=== PATIENT | male | born 1945 | race Caucasian/White ===

== ENCOUNTER 2016-06-13 | Inpatient (IN) | END 2017-06-12 23:59 | disposition still patient (30) | DRG 189 | DX: J96.21 Acute and chronic respiratory failure with hypoxia (principal); Z93.0 Tracheostomy status; I69.398 Other sequelae of cerebral infarction; I67.2 Cerebral atherosclerosis; I25.10 Atherosclerotic heart disease of native coronary artery without angina pectoris; Z93.1 Gastrostomy status ==

== ENCOUNTER 2017-06-13 | Inpatient (IN) | END 2018-06-12 11:59 | disposition other institution (70) | DRG 189 | DX: J96.21 Acute and chronic respiratory failure with hypoxia (principal); E46 Unspecified protein-calorie malnutrition; G93.40 Encephalopathy, unspecified; J98.11 Atelectasis; I10 Essential (primary) hypertension; Z93.0 Tracheostomy status; I69.298 Other sequelae of other nontraumatic intracranial hemorrhage; I67.2 Cerebral atherosclerosis; I25.10 Atherosclerotic heart disease of native coronary artery without angina pectoris; Z93.1 Gastrostomy status; D64.9 Anemia, unspecified; E27.9 Disorder of adrenal gland, unspecified; G25.2 Other specified forms of tremor; H04.123 Dry eye syndrome of bilateral lacrimal glands; I25.2 Old myocardial infarction; L89.159 Pressure ulcer of sacral region, unspecified stage; R13.10 Dysphagia, unspecified; G93.89 Other specified disorders of brain; I95.9 Hypotension, unspecified; R00.1 Bradycardia, unspecified; K30 Functional dyspepsia ==

== ENCOUNTER 2018-05-12 08:54 | Outpatient (CLI) | payer BC | END 2018-05-12 23:59 | disposition home or self-care (01) | LOC: RAD 08:54 | PROVIDERS: ATTEND Psychiatry & Neurology Neurology | DX: G31.9 Degenerative disease of nervous system, unspecified (principal); I67.82 Cerebral ischemia; I67.2 Cerebral atherosclerosis | CPT/HCPCS: 70450 ==

== ENCOUNTER 2018-06-13 | Inpatient (IN) | END 2019-06-12 23:59 | disposition still patient (30) | DRG 189 | DX: J96.21 Acute and chronic respiratory failure with hypoxia (principal); E46 Unspecified protein-calorie malnutrition; G93.40 Encephalopathy, unspecified; J98.11 Atelectasis; Z43.1 Encounter for attention to gastrostomy; N39.0 Urinary tract infection, site not specified; Z68.1 Body mass index [BMI] 19.9 or less, adult; I10 Essential (primary) hypertension; Z93.0 Tracheostomy status; I67.2 Cerebral atherosclerosis; I25.10 Atherosclerotic heart disease of native coronary artery without angina pectoris; E27.9 Disorder of adrenal gland, unspecified; I25.2 Old myocardial infarction; L89.159 Pressure ulcer of sacral region, unspecified stage; R13.10 Dysphagia, unspecified; G93.89 Other specified disorders of brain; D64.9 Anemia, unspecified; K57.90 Diverticulosis of intestine, part unspecified, without perforation or abscess without bleeding; K64.8 Other hemorrhoids; Z86.19 Personal history of other infectious and parasitic diseases; Z86.73 Personal history of transient ischemic attack (TIA), and cerebral infarction without residual deficits; B95.2 Enterococcus as the cause of diseases classified elsewhere; Z91.81 History of falling; E27.8 Other specified disorders of adrenal gland ==

== ENCOUNTER 2019-01-17 08:52 | Outpatient (CLI) | payer BC | END 2019-01-17 23:59 | LOC: RAD 08:52 | PROVIDERS: ATTEND Internal Medicine Pulmonary Disease | DX: J98.11 Atelectasis (principal); J98.19 Other pulmonary collapse; J18.9 Pneumonia, unspecified organism; D35.02 Benign neoplasm of left adrenal gland; I70.0 Atherosclerosis of aorta; I25.10 Atherosclerotic heart disease of native coronary artery without angina pectoris; M47.814 Spondylosis without myelopathy or radiculopathy, thoracic region; M19.011 Primary osteoarthritis, right shoulder; M19.012 Primary osteoarthritis, left shoulder; Z93.0 Tracheostomy status | CPT/HCPCS: 71250 ==

== ENCOUNTER 2019-07-05 06:50 | Outpatient (CLI) | payer BC | END 2019-07-05 23:59 | disposition still patient (30) | LOC: CT 06:50 | PROVIDERS: ATTEND Internal Medicine Pulmonary Disease | DX: D35.02 Benign neoplasm of left adrenal gland (principal); K44.9 Diaphragmatic hernia without obstruction or gangrene; K57.10 Diverticulosis of small intestine without perforation or abscess without bleeding; J98.11 Atelectasis; I70.0 Atherosclerosis of aorta; M95.8 Other specified acquired deformities of musculoskeletal system; E27.8 Other specified disorders of adrenal gland | CPT/HCPCS: 74150 ==

== ENCOUNTER 2019-07-14 08:00 | Outpatient (CLI) | payer BC ==
[2019-07-14] MEDS ORDERED: IOHEXOL 350 100 ML INFUS..BTL ONE (12:45)
[2019-07-14] MEDS ORDERED: SWABABLE VALVE TRANSFER SET EA MC ONE (12:45)
[2019-07-14] MEDS ORDERED: IV NORMAL SALINE 250 ML IV ONE (12:46)
== END 2019-07-14 23:59 | disposition still patient (30) ==
LOC: CT 08:00
PROVIDERS: ATTEND Internal Medicine Pulmonary Disease
DX: D35.02 Benign neoplasm of left adrenal gland (principal); K57.30 Diverticulosis of large intestine without perforation or abscess without bleeding; N28.1 Cyst of kidney, acquired; I25.10 Atherosclerotic heart disease of native coronary artery without angina pectoris; J98.11 Atelectasis; I70.0 Atherosclerosis of aorta; M46.00 Spinal enthesopathy, site unspecified; Z93.1 Gastrostomy status
CPT/HCPCS: 74160; Q9967; J7050

== ENCOUNTER 2020-01-22 09:05 | Outpatient (CLI) | payer BC | END 2020-01-22 23:59 | LOC: CT 09:05 | PROVIDERS: ATTEND Psychiatry & Neurology Neurology | DX: G31.9 Degenerative disease of nervous system, unspecified (principal); G93.89 Other specified disorders of brain; R41.82 Altered mental status, unspecified; I67.82 Cerebral ischemia; G93.6 Cerebral edema | CPT/HCPCS: 70450 ==

== ENCOUNTER → 2020-06-12 23:59 | Inpatient (IN) | payer SELFPAY ==
[2019-06-14 08:30] VITALS: BP 103/51
[2019-06-14] MEDS: CIPROFLOXACIN 0.3% OPHT DROP 2.5 ML BOTTLE EACHEYE SCH ×2 (14:56→20:00)
--- NOTE | 2019-06-14 16:42 | NUR ---
SW sent patient's son Reji and daughter Marina an email asking them to schedule a time to meet with this SW in order to sign patient's annual admission paperwork. SW will wait to hear back from them, and if not then SW will follow up with them again.
[2019-06-14] MEDS: PANTOPRAZOLE ORAL SUSPENSION 40 MG SUSPDR.PKT GT SCH (17:07)
[2019-06-14] MEDS: ALBUTEROL SULFATE 2.5 MG/3 ML NEBU NEB SCH (19:16)
[2019-06-14 20:33] VITALS: BP 126/61
[2019-06-14] MEDS: METOPROLOL TARTRATE 50 MG TABLET GT SCH (20:46)
[2019-06-14] MEDS: LOSARTAN POTASSIUM 50 MG TABLET GT SCH (20:46)
[2019-06-14] MEDS: ACIDOPHILUS/BULGARICUS CHEW TAB GT SCH (20:46)
[2019-06-14] MEDS: MULTIVIT, IRON, MIN NO. 8, FA TABLET GT SCH (20:47)
[2019-06-14] MEDS: HEPARIN SODIUM,PORCINE 5,000 UNITS/ML VIAL SQ SCH (20:48)
[2019-06-14] MEDS: COD LIVER OIL/ZINC OXIDE OINT 113 GM TUBE TP SCH (20:48)
[2019-06-14] MEDS: NEOMY/BACITRA/POLYMYXIN B OINT UD PACKET TP SCH (20:48)
[2019-06-14] MEDS: HYDROGEN PEROXIDE 3% 118 ML BOTTLE TP SCH (21:05)
[2019-06-15] MEDS: ALBUTEROL SULFATE 2.5 MG/3 ML NEBU NEB SCH ×4 (01:07→20:03)
[2019-06-15] MEDS: VITAL AF 1.2 1,000 ML LIQUID GT PRN (03:00)
[2019-06-15] MEDS: PANTOPRAZOLE ORAL SUSPENSION 40 MG SUSPDR.PKT GT SCH ×2 (06:44→17:07)
[2019-06-15 08:03] VITALS: BP 108/52
[2019-06-15] MEDS: CIPROFLOXACIN 0.3% OPHT DROP 2.5 ML BOTTLE EACHEYE SCH ×4 (08:05→20:00)
[2019-06-15] MEDS: METOPROLOL TARTRATE 50 MG TABLET GT SCH ×2 (09:00→20:21)
[2019-06-15] MEDS: LOSARTAN POTASSIUM 50 MG TABLET GT SCH ×2 (09:00→20:20)
[2019-06-15] MEDS: ASPIRIN 81 MG TAB.CHEW GT SCH (09:06)
[2019-06-15] MEDS: ACIDOPHILUS/BULGARICUS CHEW TAB GT SCH ×2 (09:07→20:20)
[2019-06-15] MEDS: ATORVASTATIN 20 MG TABLET GT SCH (09:07)
[2019-06-15] MEDS: NUTRISOURCE FIBER 4 GM PACKET GT SCH (09:08)
[2019-06-15] MEDS: COD LIVER OIL/ZINC OXIDE OINT 113 GM TUBE TP SCH ×2 (09:11→20:25)
[2019-06-15] MEDS: NEOMY/BACITRA/POLYMYXIN B OINT UD PACKET TP SCH ×2 (09:11→20:25)
[2019-06-15] MEDS: HEPARIN SODIUM,PORCINE 5,000 UNITS/ML VIAL SQ SCH ×2 (09:11→20:31)
[2019-06-15] MEDS: HYDROGEN PEROXIDE 3% 118 ML BOTTLE TP SCH ×2 (09:55→20:18)
[2019-06-15 20:44] VITALS: BP 124/53
[2019-06-16] MEDS: ALBUTEROL SULFATE 2.5 MG/3 ML NEBU NEB SCH ×4 (01:48→19:41)
[2019-06-16] MEDS: VITAL AF 1.2 1,000 ML LIQUID GT PRN (04:35)
[2019-06-16] MEDS: PANTOPRAZOLE ORAL SUSPENSION 40 MG SUSPDR.PKT GT SCH ×2 (06:16→17:36)
[2019-06-16] MEDS: CIPROFLOXACIN 0.3% OPHT DROP 2.5 ML BOTTLE EACHEYE SCH ×4 (08:00→20:00)
[2019-06-16 08:30] VITALS: BP 104/43
[2019-06-16] MEDS: ASPIRIN 81 MG TAB.CHEW GT SCH (08:53)
[2019-06-16] MEDS: ACIDOPHILUS/BULGARICUS CHEW TAB GT SCH ×2 (08:54→20:43)
[2019-06-16] MEDS: LOSARTAN POTASSIUM 50 MG TABLET GT SCH ×2 (08:54→20:42)
[2019-06-16] MEDS: ATORVASTATIN 20 MG TABLET GT SCH (08:54)
[2019-06-16] MEDS: METOPROLOL TARTRATE 50 MG TABLET GT SCH ×2 (08:55→20:44)
[2019-06-16] MEDS: NUTRISOURCE FIBER 4 GM PACKET GT SCH (08:55)
[2019-06-16] MEDS: COD LIVER OIL/ZINC OXIDE OINT 113 GM TUBE TP SCH ×2 (08:56→20:44)
[2019-06-16] MEDS: NEOMY/BACITRA/POLYMYXIN B OINT UD PACKET TP SCH ×2 (08:56→20:44)
[2019-06-16] MEDS: HEPARIN SODIUM,PORCINE 5,000 UNITS/ML VIAL SQ SCH ×2 (08:56→20:44)
[2019-06-16] MEDS: HYDROGEN PEROXIDE 3% 118 ML BOTTLE TP SCH ×2 (09:00→21:12)
[2019-06-16] MEDS: MULTIVIT, IRON, MIN NO. 8, FA TABLET GT SCH (20:44)
[2019-06-16 20:49] VITALS: BP 115/64
[2019-06-17] MEDS: ALBUTEROL SULFATE 2.5 MG/3 ML NEBU NEB SCH ×4 (01:05→20:03)
[2019-06-17] MEDS: VITAL AF 1.2 1,000 ML LIQUID GT PRN (03:15)
[2019-06-17] MEDS: PANTOPRAZOLE ORAL SUSPENSION 40 MG SUSPDR.PKT GT SCH ×2 (06:08→17:38)
[2019-06-17] MEDS: CIPROFLOXACIN 0.3% OPHT DROP 2.5 ML BOTTLE EACHEYE SCH ×4 (08:00→18:15)
[2019-06-17 08:30] VITALS: BP 116/50
[2019-06-17] MEDS: LOSARTAN POTASSIUM 50 MG TABLET GT SCH ×2 (09:00→21:15)
[2019-06-17] MEDS: HYDROGEN PEROXIDE 3% 118 ML BOTTLE TP SCH ×2 (09:00→20:03)
[2019-06-17] MEDS: METOPROLOL TARTRATE 50 MG TABLET GT SCH ×2 (09:00→21:16)
[2019-06-17] MEDS: ASPIRIN 81 MG TAB.CHEW GT SCH (09:30)
[2019-06-17] MEDS: ACIDOPHILUS/BULGARICUS CHEW TAB GT SCH ×2 (09:32→21:15)
[2019-06-17] MEDS: ATORVASTATIN 20 MG TABLET GT SCH (09:34)
[2019-06-17] MEDS: NUTRISOURCE FIBER 4 GM PACKET GT SCH (09:35)
[2019-06-17] MEDS: NEOMY/BACITRA/POLYMYXIN B OINT UD PACKET TP SCH ×2 (09:37→21:18)
[2019-06-17] MEDS: COD LIVER OIL/ZINC OXIDE OINT 113 GM TUBE TP SCH ×2 (09:37→21:18)
[2019-06-17] MEDS: HEPARIN SODIUM,PORCINE 5,000 UNITS/ML VIAL SQ SCH ×2 (09:37→21:20)
[2019-06-17 21:13] VITALS: BP 125/60
--- NOTE | 2019-06-17 21:54 | NUR ---
S/p Cipro eye drops for both eye infection, no adverse reactions noted, no discharges or drainage noted, good eye care done, no signs of pain discomfort, kept clean and comfortable.
[2019-06-18] MEDS: ALBUTEROL SULFATE 2.5 MG/3 ML NEBU NEB SCH ×4 (01:52→19:51)
[2019-06-18] MEDS: PANTOPRAZOLE ORAL SUSPENSION 40 MG SUSPDR.PKT GT SCH ×2 (05:20→17:39)
[2019-06-18 08:30] VITALS: BP_SYST 101; BP_SYST 112; BP_DIAS 56; BP_DIAS 70
[2019-06-18] MEDS: ASPIRIN 81 MG TAB.CHEW GT SCH (08:40)
[2019-06-18] MEDS: ATORVASTATIN 20 MG TABLET GT SCH (08:42)
[2019-06-18] MEDS: LOSARTAN POTASSIUM 50 MG TABLET GT SCH ×2 (08:42→21:14)
[2019-06-18] MEDS: ACIDOPHILUS/BULGARICUS CHEW TAB GT SCH ×2 (08:42→21:14)
[2019-06-18] MEDS: NUTRISOURCE FIBER 4 GM PACKET GT SCH (08:45)
[2019-06-18] MEDS: METOPROLOL TARTRATE 50 MG TABLET GT SCH ×2 (08:45→21:14)
[2019-06-18] MEDS: HEPARIN SODIUM,PORCINE 5,000 UNITS/ML VIAL SQ SCH ×2 (08:47→21:11)
[2019-06-18] MEDS: COD LIVER OIL/ZINC OXIDE OINT 113 GM TUBE TP SCH ×2 (08:47→21:14)
[2019-06-18] MEDS: HYDROGEN PEROXIDE 3% 118 ML BOTTLE TP SCH ×2 (08:52→21:50)
[2019-06-18] MEDS: NEOMY/BACITRA/POLYMYXIN B OINT UD PACKET TP SCH ×2 (09:00→21:15)
[2019-06-18] MEDS: MULTIVIT, IRON, MIN NO. 8, FA TABLET GT SCH (21:14)
[2019-06-18 21:56] VITALS: BP 143/62
[2019-06-19] MEDS: ALBUTEROL SULFATE 2.5 MG/3 ML NEBU NEB SCH ×4 (01:20→18:30)
[2019-06-19] MEDS: PANTOPRAZOLE ORAL SUSPENSION 40 MG SUSPDR.PKT GT SCH ×2 (05:51→17:21)
[2019-06-19] MEDS: VITAL AF 1.2 1,000 ML LIQUID GT PRN ×2 (06:46→22:30)
[2019-06-19 08:00] VITALS: BP 106/46
[2019-06-19] MEDS: ATORVASTATIN 20 MG TABLET GT SCH (08:46)
[2019-06-19] MEDS: ASPIRIN 81 MG TAB.CHEW GT SCH (08:46)
[2019-06-19] MEDS: LOSARTAN POTASSIUM 50 MG TABLET GT SCH ×2 (08:46→21:00)
[2019-06-19] MEDS: ACIDOPHILUS/BULGARICUS CHEW TAB GT SCH ×2 (08:46→21:25)
[2019-06-19] MEDS: METOPROLOL TARTRATE 50 MG TABLET GT SCH ×2 (08:47→21:00)
[2019-06-19] MEDS: COD LIVER OIL/ZINC OXIDE OINT 113 GM TUBE TP SCH ×2 (08:47→21:26)
[2019-06-19] MEDS: NEOMY/BACITRA/POLYMYXIN B OINT UD PACKET TP SCH ×2 (08:47→21:26)
[2019-06-19] MEDS: NUTRISOURCE FIBER 4 GM PACKET GT SCH (08:47)
[2019-06-19] MEDS: HEPARIN SODIUM,PORCINE 5,000 UNITS/ML VIAL SQ SCH ×2 (08:48→21:27)
[2019-06-19] MEDS: HYDROGEN PEROXIDE 3% 118 ML BOTTLE TP SCH ×2 (09:35→20:28)
[2019-06-19 21:11] VITALS: BP 118/51
[2019-06-20] MEDS: ALBUTEROL SULFATE 2.5 MG/3 ML NEBU NEB SCH ×4 (02:08→20:00)
[2019-06-20] MEDS: VITAL AF 1.2 1,000 ML LIQUID GT PRN ×2 (02:15→17:05)
[2019-06-20] MEDS: PANTOPRAZOLE ORAL SUSPENSION 40 MG SUSPDR.PKT GT SCH ×2 (05:49→17:05)
[2019-06-20] MEDS: ACIDOPHILUS/BULGARICUS CHEW TAB GT SCH ×2 (08:10→21:45)
[2019-06-20] MEDS: ASPIRIN 81 MG TAB.CHEW GT SCH (08:10)
[2019-06-20] MEDS: LOSARTAN POTASSIUM 50 MG TABLET GT SCH ×2 (08:10→21:00)
[2019-06-20] MEDS: ATORVASTATIN 20 MG TABLET GT SCH (08:10)
[2019-06-20] MEDS: COD LIVER OIL/ZINC OXIDE OINT 113 GM TUBE TP SCH ×2 (08:11→21:49)
[2019-06-20] MEDS: NUTRISOURCE FIBER 4 GM PACKET GT SCH (08:11)
[2019-06-20] MEDS: METOPROLOL TARTRATE 50 MG TABLET GT SCH ×2 (08:11→21:00)
[2019-06-20] MEDS: NEOMY/BACITRA/POLYMYXIN B OINT UD PACKET TP SCH ×2 (08:11→21:50)
[2019-06-20] MEDS: HEPARIN SODIUM,PORCINE 5,000 UNITS/ML VIAL SQ SCH ×2 (08:14→21:00)
[2019-06-20] MEDS: HYDROGEN PEROXIDE 3% 118 ML BOTTLE TP SCH ×2 (09:00→20:52)
--- NOTE | 2019-06-20 10:52 | NUR ---
SW sent patient's son Reji and daughter Marina a follow-up email (first email sent on 06/14--see SS note dated 06/14), asking to schedule a time to meet in order to review patient's annual admission paperwork and obtain family's signatures on the forms.
[2019-06-20 12:08] VITALS: BP 110/64
--- NOTE | 2019-06-20 17:11 | NUR ---
SW received an email response back from patient's daughter Marina, who stated that she is currently out of town, however will be back next week and can meet with this SW to review and sign patient's annual admission paperwork. Marina stated that she will confirm exact date and time with this SW. GUTIERREZ responded to Marina's email confirming receipt and being in agreement to meet next week.
[2019-06-20 20:33] VITALS: BP 113/67
[2019-06-20] MEDS: MULTIVIT, IRON, MIN NO. 8, FA TABLET GT SCH (21:45)
[2019-06-21] MEDS: ALBUTEROL SULFATE 2.5 MG/3 ML NEBU NEB SCH ×4 (01:57→20:04)
[2019-06-21] MEDS: PANTOPRAZOLE ORAL SUSPENSION 40 MG SUSPDR.PKT GT SCH ×2 (05:35→17:14)
[2019-06-21 08:00] VITALS: BP 110/60
[2019-06-21] MEDS: HYDROGEN PEROXIDE 3% 118 ML BOTTLE TP SCH ×2 (08:15→20:23)
[2019-06-21] MEDS: ASPIRIN 81 MG TAB.CHEW GT SCH (08:33)
[2019-06-21] MEDS: LOSARTAN POTASSIUM 50 MG TABLET GT SCH ×2 (08:33→20:06)
[2019-06-21] MEDS: ATORVASTATIN 20 MG TABLET GT SCH (08:34)
[2019-06-21] MEDS: NUTRISOURCE FIBER 4 GM PACKET GT SCH (08:34)
[2019-06-21] MEDS: ACIDOPHILUS/BULGARICUS CHEW TAB GT SCH ×2 (08:34→20:06)
[2019-06-21] MEDS: METOPROLOL TARTRATE 50 MG TABLET GT SCH ×2 (08:34→20:06)
[2019-06-21] MEDS: HEPARIN SODIUM,PORCINE 5,000 UNITS/ML VIAL SQ SCH ×2 (08:34→20:07)
[2019-06-21] MEDS: COD LIVER OIL/ZINC OXIDE OINT 113 GM TUBE TP SCH ×2 (08:35→20:07)
[2019-06-21] MEDS: NEOMY/BACITRA/POLYMYXIN B OINT UD PACKET TP SCH ×2 (08:35→20:08)
[2019-06-21 20:27] VITALS: BP 106/51
[2019-06-22] MEDS: ALBUTEROL SULFATE 2.5 MG/3 ML NEBU NEB SCH ×4 (01:55→20:25)
[2019-06-22] MEDS: PANTOPRAZOLE ORAL SUSPENSION 40 MG SUSPDR.PKT GT SCH ×2 (05:37→17:44)
[2019-06-22] MEDS: ASPIRIN 81 MG TAB.CHEW GT SCH (08:44)
[2019-06-22] MEDS: ACIDOPHILUS/BULGARICUS CHEW TAB GT SCH ×2 (08:45→20:25)
[2019-06-22] MEDS: LOSARTAN POTASSIUM 50 MG TABLET GT SCH ×2 (08:45→20:24)
[2019-06-22] MEDS: METOPROLOL TARTRATE 50 MG TABLET GT SCH ×2 (08:45→20:25)
[2019-06-22] MEDS: ATORVASTATIN 20 MG TABLET GT SCH (08:45)
[2019-06-22] MEDS: COD LIVER OIL/ZINC OXIDE OINT 113 GM TUBE TP SCH ×2 (08:46→20:25)
[2019-06-22] MEDS: HEPARIN SODIUM,PORCINE 5,000 UNITS/ML VIAL SQ SCH ×2 (08:46→20:26)
[2019-06-22] MEDS: NEOMY/BACITRA/POLYMYXIN B OINT UD PACKET TP SCH ×2 (08:46→20:26)
[2019-06-22] MEDS: NUTRISOURCE FIBER 4 GM PACKET GT SCH (08:46)
[2019-06-22] MEDS: HYDROGEN PEROXIDE 3% 118 ML BOTTLE TP SCH ×2 (09:40→20:25)
--- NOTE | 2019-06-22 10:00 | NUR ---
PT. WAS SEEN AND EXAMINED BY DR. RIOS AND WITH NEW ORDERS CARRIED OUT.
[2019-06-22 10:05] VITALS: BP 122/48
[2019-06-22] MEDS: MULTIVIT, IRON, MIN NO. 8, FA TABLET GT SCH (20:25)
[2019-06-22 20:33] VITALS: BP 98/48
[2019-06-23] MEDS: ALBUTEROL SULFATE 2.5 MG/3 ML NEBU NEB SCH ×4 (00:44→19:40)
[2019-06-23] MEDS: VITAL AF 1.2 1,000 ML LIQUID GT PRN (04:07)
[2019-06-23] MEDS: PANTOPRAZOLE ORAL SUSPENSION 40 MG SUSPDR.PKT GT SCH ×2 (06:10→18:10)
[2019-06-23 06:36] LABS: BASOPHILS # (AUTO) 0.1 K/uL (0.0-8.0); EOSINOPHILS # (AUTO) 0.4 K/uL (0.0-0.7); EOSINOPHILS % (AUTO) 7.8 % (0.0-7.0); HEMOGLOBIN 13.2 g/dL (12.5-16.3); LYMPHOCYTES % (AUTO) 34.1 % (20.5-51.5); MEAN CORPUSCULAR HEMOGLOBIN 32.4 uug (23.8-33.4); MEAN CORPUSCULAR HGB CONC 34 g/dL (32.5-36.3); MEAN CORPUSCULAR VOLUME 95.6 fL (73.0-96.2); MONOCYTES # (AUTO) 0.5 K/uL (2.0-10.0); NEUTROPHILS # (AUTO) 2.8 K/uL (1.8-8.9); NEUTROPHILS % (AUTO) 48.1 % (38.5-71.5); PLATELET COUNT (AUTO) 242 K/uL (152-348); RED BLOOD CELL COUNT(AUTO) 4.08 MIL/uL (4.06-5.63); WHITE BLOOD COUNT (AUTO) 5.7 K/uL (3.6-10.2)
[2019-06-23 07:03] LABS: CREATININE 0.6 mg/dL (0.6-1.3); PHOSPHOROUS 3.4 mg/dL (2.5-4.9); POTASSIUM 4.5 mmol/L (3.5-5.1)
[2019-06-23] MEDS: HYDROGEN PEROXIDE 3% 118 ML BOTTLE TP SCH ×2 (08:19→21:10)
[2019-06-23] MEDS: ASPIRIN 81 MG TAB.CHEW GT SCH (08:28)
[2019-06-23] MEDS: LOSARTAN POTASSIUM 50 MG TABLET GT SCH ×2 (08:28→20:29)
[2019-06-23] MEDS: ACIDOPHILUS/BULGARICUS CHEW TAB GT SCH ×2 (08:29→20:30)
[2019-06-23] MEDS: ATORVASTATIN 20 MG TABLET GT SCH (08:29)
[2019-06-23] MEDS: METOPROLOL TARTRATE 50 MG TABLET GT SCH ×2 (08:29→20:30)
[2019-06-23] MEDS: NUTRISOURCE FIBER 4 GM PACKET GT SCH (08:30)
[2019-06-23] MEDS: COD LIVER OIL/ZINC OXIDE OINT 113 GM TUBE TP SCH ×2 (08:30→20:30)
[2019-06-23] MEDS: HEPARIN SODIUM,PORCINE 5,000 UNITS/ML VIAL SQ SCH ×2 (08:30→20:35)
[2019-06-23] MEDS: NEOMY/BACITRA/POLYMYXIN B OINT UD PACKET TP SCH ×2 (08:30→20:31)
--- NOTE | 2019-06-23 09:47 | NUR ---
SEEN BY DR. GUTIERREZ AND WITH NNO.
[2019-06-23 11:42] VITALS: BP 118/45
[2019-06-23 20:19] VITALS: BP 125/66
[2019-06-24] MEDS: ALBUTEROL SULFATE 2.5 MG/3 ML NEBU NEB SCH ×4 (00:54→20:18)
[2019-06-24] MEDS: PANTOPRAZOLE ORAL SUSPENSION 40 MG SUSPDR.PKT GT SCH ×2 (05:58→17:16)
[2019-06-24] MEDS: VITAL AF 1.2 1,000 ML LIQUID GT PRN (05:58)
[2019-06-24] MEDS: POLYVINYL ALCOHOL OPHT DROPS 15 ML BOTTLE EACHEYE PRN (06:00)
[2019-06-24] MEDS: ATORVASTATIN 20 MG TABLET GT SCH (08:51)
[2019-06-24] MEDS: LOSARTAN POTASSIUM 50 MG TABLET GT SCH ×2 (08:51→21:47)
[2019-06-24] MEDS: ACIDOPHILUS/BULGARICUS CHEW TAB GT SCH ×2 (08:51→21:48)
[2019-06-24] MEDS: ASPIRIN 81 MG TAB.CHEW GT SCH (08:51)
[2019-06-24] MEDS: METOPROLOL TARTRATE 50 MG TABLET GT SCH ×2 (08:51→21:00)
[2019-06-24] MEDS: NEOMY/BACITRA/POLYMYXIN B OINT UD PACKET TP SCH (08:52)
[2019-06-24] MEDS: NUTRISOURCE FIBER 4 GM PACKET GT SCH (08:52)
[2019-06-24] MEDS: COD LIVER OIL/ZINC OXIDE OINT 113 GM TUBE TP SCH ×2 (08:52→21:49)
[2019-06-24] MEDS: HYDROGEN PEROXIDE 3% 118 ML BOTTLE TP SCH ×2 (08:52→20:35)
[2019-06-24] MEDS: HEPARIN SODIUM,PORCINE 5,000 UNITS/ML VIAL SQ SCH ×2 (08:55→21:51)
[2019-06-24 11:08] VITALS: BP 90/45
[2019-06-24] MEDS: ACETAMINOPHEN 650 MG/20 ML UDC- SA PATIENTS-PAIN ONLY GT PRN (11:15)
[2019-06-24 20:19] VITALS: BP 128/68
[2019-06-24] MEDS: MULTIVIT, IRON, MIN NO. 8, FA TABLET GT SCH (21:49)
[2019-06-25] MEDS: ALBUTEROL SULFATE 2.5 MG/3 ML NEBU NEB SCH ×4 (01:44→19:30)
[2019-06-25] MEDS: PANTOPRAZOLE ORAL SUSPENSION 40 MG SUSPDR.PKT GT SCH ×2 (06:14→18:35)
[2019-06-25] MEDS: HYDROGEN PEROXIDE 3% 118 ML BOTTLE TP SCH ×2 (08:20→21:13)
[2019-06-25 08:30] VITALS: BP 100/53
[2019-06-25] MEDS: METOPROLOL TARTRATE 50 MG TABLET GT SCH ×2 (09:00→20:45)
[2019-06-25] MEDS: LOSARTAN POTASSIUM 50 MG TABLET GT SCH ×2 (09:00→20:45)
[2019-06-25] MEDS: ASPIRIN 81 MG TAB.CHEW GT SCH (09:09)
[2019-06-25] MEDS: ACIDOPHILUS/BULGARICUS CHEW TAB GT SCH ×2 (09:10→20:45)
[2019-06-25] MEDS: ATORVASTATIN 20 MG TABLET GT SCH (09:11)
[2019-06-25] MEDS: NUTRISOURCE FIBER 4 GM PACKET GT SCH (09:11)
[2019-06-25] MEDS: HEPARIN SODIUM,PORCINE 5,000 UNITS/ML VIAL SQ SCH ×2 (09:14→20:52)
[2019-06-25] MEDS: COD LIVER OIL/ZINC OXIDE OINT 113 GM TUBE TP SCH ×2 (09:14→20:46)
--- NOTE | 2019-06-25 15:44 | NUR ---
SW notified patient's son Reji, daughter Marina, and [id number] Gin via email that the next IDT meeting for the patient has been scheduled for 07/03/2019 at 11am.
--- NOTE | 2019-06-25 15:56 | NUR ---
SW received an email from patient's daughter Marina stating that she will be able to meet with this SW tomorrow, 06/26/2019 at 10am, in order to review and sign patient's annual admission paperwork.
[2019-06-25 20:53] VITALS: BP 118/67
[2019-06-26] MEDS: ALBUTEROL SULFATE 2.5 MG/3 ML NEBU NEB SCH ×4 (01:06→19:34)
[2019-06-26] MEDS: PANTOPRAZOLE ORAL SUSPENSION 40 MG SUSPDR.PKT GT SCH ×2 (05:05→18:19)
[2019-06-26 07:53] VITALS: BP 114/55
[2019-06-26] MEDS: VITAL AF 1.2 1,000 ML LIQUID GT PRN (08:51)
[2019-06-26] MEDS: ASPIRIN 81 MG TAB.CHEW GT SCH (08:51)
[2019-06-26] MEDS: ACIDOPHILUS/BULGARICUS CHEW TAB GT SCH ×2 (08:52→20:30)
[2019-06-26] MEDS: ATORVASTATIN 20 MG TABLET GT SCH (08:52)
[2019-06-26] MEDS: LOSARTAN POTASSIUM 50 MG TABLET GT SCH ×2 (08:52→20:25)
[2019-06-26] MEDS: METOPROLOL TARTRATE 50 MG TABLET GT SCH ×2 (08:53→20:31)
[2019-06-26] MEDS: NUTRISOURCE FIBER 4 GM PACKET GT SCH (08:54)
[2019-06-26] MEDS: COD LIVER OIL/ZINC OXIDE OINT 113 GM TUBE TP SCH ×2 (08:54→20:33)
[2019-06-26] MEDS: HEPARIN SODIUM,PORCINE 5,000 UNITS/ML VIAL SQ SCH ×2 (08:57→20:33)
[2019-06-26] MEDS: HYDROGEN PEROXIDE 3% 118 ML BOTTLE TP SCH ×2 (09:00→21:22)
--- NOTE | 2019-06-26 09:15 | NUR ---
GUTIERREZ received an email this morning from patient's daughter Marina, stating that she would not be able to come in to meet with GUTIERREZ this morning as previously scheduled (see SS note dated 06/25) and that she would need to reschedule for later on this week. GUTIERREZ responded stating agreement, and asked Marina to let GUTIERREZ know what other day this week she would be able to come in. GUTIERREZ will wait to hear back from Marina about rescheduling, and will follow-up with Marina if necessary.
--- NOTE | 2019-06-26 14:54 | NUR ---
Seen and examined by Rosie Walton,no new orders noted.
[2019-06-26 20:05] VITALS: BP 130/78
[2019-06-26] MEDS: MULTIVIT, IRON, MIN NO. 8, FA TABLET GT SCH (20:31)
[2019-06-27] MEDS: ALBUTEROL SULFATE 2.5 MG/3 ML NEBU NEB SCH ×4 (00:44→19:27)
[2019-06-27] MEDS: VITAL AF 1.2 1,000 ML LIQUID GT PRN (06:30)
[2019-06-27] MEDS: PANTOPRAZOLE ORAL SUSPENSION 40 MG SUSPDR.PKT GT SCH ×2 (06:30→18:01)
[2019-06-27] MEDS: HEPARIN SODIUM,PORCINE 5,000 UNITS/ML VIAL SQ SCH ×2 (08:02→20:34)
[2019-06-27] MEDS: ASPIRIN 81 MG TAB.CHEW GT SCH (08:03)
[2019-06-27] MEDS: ACIDOPHILUS/BULGARICUS CHEW TAB GT SCH ×2 (08:04→20:32)
[2019-06-27] MEDS: LOSARTAN POTASSIUM 50 MG TABLET GT SCH ×2 (08:04→20:31)
[2019-06-27] MEDS: ATORVASTATIN 20 MG TABLET GT SCH (08:04)
[2019-06-27] MEDS: METOPROLOL TARTRATE 50 MG TABLET GT SCH ×2 (08:05→20:34)
[2019-06-27] MEDS: NUTRISOURCE FIBER 4 GM PACKET GT SCH (08:05)
[2019-06-27] MEDS: COD LIVER OIL/ZINC OXIDE OINT 113 GM TUBE TP SCH ×2 (08:05→20:35)
[2019-06-27] MEDS: HYDROGEN PEROXIDE 3% 118 ML BOTTLE TP SCH ×2 (09:12→21:16)
[2019-06-27 11:04] VITALS: BP 102/56
[2019-06-27 20:00] VITALS: BP 125/56
[2019-06-28] MEDS: ALBUTEROL SULFATE 2.5 MG/3 ML NEBU NEB SCH ×4 (01:04→19:29)
[2019-06-28] MEDS: VITAL AF 1.2 1,000 ML LIQUID GT PRN (06:26)
[2019-06-28] MEDS: PANTOPRAZOLE ORAL SUSPENSION 40 MG SUSPDR.PKT GT SCH ×2 (06:26→17:06)
[2019-06-28] MEDS: HYDROGEN PEROXIDE 3% 118 ML BOTTLE TP SCH ×2 (07:42→21:21)
[2019-06-28] MEDS: METOPROLOL TARTRATE 50 MG TABLET GT SCH ×2 (08:38→21:00)
[2019-06-28] MEDS: ASPIRIN 81 MG TAB.CHEW GT SCH (08:38)
[2019-06-28] MEDS: ATORVASTATIN 20 MG TABLET GT SCH (08:38)
[2019-06-28] MEDS: ACIDOPHILUS/BULGARICUS CHEW TAB GT SCH ×2 (08:38→21:52)
[2019-06-28] MEDS: LOSARTAN POTASSIUM 50 MG TABLET GT SCH ×2 (08:38→21:52)
[2019-06-28] MEDS: COD LIVER OIL/ZINC OXIDE OINT 113 GM TUBE TP SCH ×2 (08:39→21:54)
[2019-06-28] MEDS: NUTRISOURCE FIBER 4 GM PACKET GT SCH (08:39)
[2019-06-28] MEDS: HEPARIN SODIUM,PORCINE 5,000 UNITS/ML VIAL SQ SCH ×2 (08:39→21:54)
--- NOTE | 2019-06-28 09:01 | NUR ---
GUTIERREZ received an email from patient's daughter Marina this morning (email was sent by Marina at 8:44am) stating that she would once again not be able to come in this morning to meet with this SW to sign patient's annual admission paperwork, as previously rescheduled (see SS note dated 06/26). Marina once again asked to reschedule for next week. GUTIERREZ emailed Marina back and stated that SW is available on Sunday 07/02 at 10am and on Tuesday 07/04 at 10am, and asked Marina to let this SW know which day/time she can come in to meet with this SW.
[2019-06-28 14:34] VITALS: BP 111/67
[2019-06-28 20:54] VITALS: BP 120/70
[2019-06-28] MEDS: MULTIVIT, IRON, MIN NO. 8, FA TABLET GT SCH (21:53)
[2019-06-29] MEDS: ALBUTEROL SULFATE 2.5 MG/3 ML NEBU NEB SCH ×4 (01:04→19:11)
[2019-06-29] MEDS: VITAL AF 1.2 1,000 ML LIQUID GT PRN ×2 (02:00→23:15)
[2019-06-29] MEDS: PANTOPRAZOLE ORAL SUSPENSION 40 MG SUSPDR.PKT GT SCH ×2 (06:27→18:13)
[2019-06-29] MEDS: HYDROGEN PEROXIDE 3% 118 ML BOTTLE TP SCH ×2 (08:00→19:11)
[2019-06-29] MEDS: ACIDOPHILUS/BULGARICUS CHEW TAB GT SCH ×2 (08:47→20:20)
[2019-06-29] MEDS: ATORVASTATIN 20 MG TABLET GT SCH (08:47)
[2019-06-29] MEDS: LOSARTAN POTASSIUM 50 MG TABLET GT SCH ×2 (08:47→20:20)
[2019-06-29] MEDS: ASPIRIN 81 MG TAB.CHEW GT SCH (08:47)
[2019-06-29] MEDS: HEPARIN SODIUM,PORCINE 5,000 UNITS/ML VIAL SQ SCH ×2 (08:48→20:22)
[2019-06-29] MEDS: COD LIVER OIL/ZINC OXIDE OINT 113 GM TUBE TP SCH ×2 (08:48→20:22)
[2019-06-29] MEDS: NUTRISOURCE FIBER 4 GM PACKET GT SCH (08:48)
[2019-06-29] MEDS: METOPROLOL TARTRATE 50 MG TABLET GT SCH ×2 (08:48→20:20)
[2019-06-29 10:57] VITALS: BP 121/76
[2019-06-29 19:54] VITALS: BP 124/52
[2019-06-30] MEDS: ALBUTEROL SULFATE 2.5 MG/3 ML NEBU NEB SCH ×4 (00:36→19:20)
[2019-06-30] MEDS: PANTOPRAZOLE ORAL SUSPENSION 40 MG SUSPDR.PKT GT SCH ×2 (05:15→17:04)
[2019-06-30 08:00] VITALS: BP 109/56
[2019-06-30] MEDS: ASPIRIN 81 MG TAB.CHEW GT SCH (08:08)
[2019-06-30] MEDS: LOSARTAN POTASSIUM 50 MG TABLET GT SCH ×2 (08:09→20:26)
[2019-06-30] MEDS: ATORVASTATIN 20 MG TABLET GT SCH (08:09)
[2019-06-30] MEDS: ACIDOPHILUS/BULGARICUS CHEW TAB GT SCH ×2 (08:09→20:26)
[2019-06-30] MEDS: METOPROLOL TARTRATE 50 MG TABLET GT SCH ×2 (08:10→20:26)
[2019-06-30] MEDS: NUTRISOURCE FIBER 4 GM PACKET GT SCH (08:10)
[2019-06-30] MEDS: COD LIVER OIL/ZINC OXIDE OINT 113 GM TUBE TP SCH ×2 (08:12→20:26)
[2019-06-30] MEDS: HEPARIN SODIUM,PORCINE 5,000 UNITS/ML VIAL SQ SCH ×2 (08:13→20:25)
[2019-06-30] MEDS: HYDROGEN PEROXIDE 3% 118 ML BOTTLE TP SCH ×2 (09:50→20:52)
[2019-06-30 19:48] VITALS: BP 126/70
[2019-06-30] MEDS: MULTIVIT, IRON, MIN NO. 8, FA TABLET GT SCH (20:26)
[2019-07-01] MEDS: ALBUTEROL SULFATE 2.5 MG/3 ML NEBU NEB SCH ×4 (01:05→19:17)
[2019-07-01] MEDS: PANTOPRAZOLE ORAL SUSPENSION 40 MG SUSPDR.PKT GT SCH ×2 (05:06→17:29)
[2019-07-01 08:01] VITALS: BP 103/50
[2019-07-01] MEDS: HYDROGEN PEROXIDE 3% 118 ML BOTTLE TP SCH ×2 (08:09→21:12)
[2019-07-01] MEDS: LOSARTAN POTASSIUM 50 MG TABLET GT SCH ×2 (08:45→20:27)
[2019-07-01] MEDS: ACIDOPHILUS/BULGARICUS CHEW TAB GT SCH ×2 (08:45→20:27)
[2019-07-01] MEDS: ASPIRIN 81 MG TAB.CHEW GT SCH (08:45)
[2019-07-01] MEDS: ATORVASTATIN 20 MG TABLET GT SCH (08:46)
[2019-07-01] MEDS: METOPROLOL TARTRATE 50 MG TABLET GT SCH ×2 (08:46→20:27)
[2019-07-01] MEDS: COD LIVER OIL/ZINC OXIDE OINT 113 GM TUBE TP SCH ×2 (08:47→20:28)
[2019-07-01] MEDS: NUTRISOURCE FIBER 4 GM PACKET GT SCH (08:47)
[2019-07-01] MEDS: HEPARIN SODIUM,PORCINE 5,000 UNITS/ML VIAL SQ SCH ×2 (08:48→20:28)
[2019-07-01] MEDS: VITAL AF 1.2 1,000 ML LIQUID GT PRN (15:01)
[2019-07-01 20:31] VITALS: BP 138/61
[2019-07-02] MEDS: ALBUTEROL SULFATE 2.5 MG/3 ML NEBU NEB SCH ×4 (01:05→19:09)
[2019-07-02] MEDS: PANTOPRAZOLE ORAL SUSPENSION 40 MG SUSPDR.PKT GT SCH ×2 (05:18→17:45)
[2019-07-02 08:03] VITALS: BP 113/50
[2019-07-02] MEDS: METOPROLOL TARTRATE 50 MG TABLET GT SCH ×2 (09:00→20:17)
[2019-07-02] MEDS: LOSARTAN POTASSIUM 50 MG TABLET GT SCH ×2 (09:00→20:16)
[2019-07-02] MEDS: HYDROGEN PEROXIDE 3% 118 ML BOTTLE TP SCH ×2 (09:00→19:09)
[2019-07-02] MEDS: ASPIRIN 81 MG TAB.CHEW GT SCH (09:03)
[2019-07-02] MEDS: ATORVASTATIN 20 MG TABLET GT SCH (09:04)
[2019-07-02] MEDS: ACIDOPHILUS/BULGARICUS CHEW TAB GT SCH ×2 (09:04→20:16)
[2019-07-02] MEDS: NUTRISOURCE FIBER 4 GM PACKET GT SCH (09:04)
[2019-07-02] MEDS: HEPARIN SODIUM,PORCINE 5,000 UNITS/ML VIAL SQ SCH ×2 (09:05→20:18)
[2019-07-02] MEDS: COD LIVER OIL/ZINC OXIDE OINT 113 GM TUBE TP SCH ×2 (09:05→20:18)
--- NOTE | 2019-07-02 11:20 | NUR ---
SEEN BY KRISH WRIGHT WITH NO NEW ORDER.
[2019-07-02] MEDS: VITAL AF 1.2 1,000 ML LIQUID GT PRN (17:52)
[2019-07-02] MEDS: MULTIVIT, IRON, MIN NO. 8, FA TABLET GT SCH (20:16)
[2019-07-02 21:13] VITALS: BP 108/60
[2019-07-03] MEDS: ALBUTEROL SULFATE 2.5 MG/3 ML NEBU NEB SCH ×4 (00:40→19:18)
[2019-07-03] MEDS: PANTOPRAZOLE ORAL SUSPENSION 40 MG SUSPDR.PKT GT SCH ×2 (05:26→17:29)
[2019-07-03 07:44] LABS: BASOPHILS % (AUTO) 0.7 % (0.0-2.0); EOSINOPHILS # (AUTO) 0.4 K/uL (0.0-0.7); EOSINOPHILS % (AUTO) 7.1 % (0.0-7.0); HEMATOCRIT 39.4 % (36.7-47.1); HEMOGLOBIN 13.3 g/dL (12.5-16.3); LYMPHOCYTES # (AUTO) 1.8 K/uL (20.0-40.0); LYMPHOCYTES % (AUTO) 35.2 % (20.5-51.5); MEAN CORPUSCULAR HEMOGLOBIN 32.6 uug (23.8-33.4); MEAN CORPUSCULAR HGB CONC 34 g/dL (32.5-36.3); MEAN CORPUSCULAR VOLUME 96.5 fL (73.0-96.2); MONOCYTES # (AUTO) 0.5 K/uL (2.0-10.0); NEUTROPHILS # (AUTO) 2.4 K/uL (1.8-8.9); PLATELET COUNT (AUTO) 241 K/uL (152-348); RED BLOOD CELL COUNT(AUTO) 4.08 MIL/uL (4.06-5.63); WHITE BLOOD COUNT (AUTO) 5.2 K/uL (3.6-10.2)
[2019-07-03 07:57] LABS: CREATININE 0.7 mg/dL (0.6-1.3); PHOSPHOROUS 3.5 mg/dL (2.5-4.9); POTASSIUM 4.2 mmol/L (3.5-5.1)
[2019-07-03 08:03] VITALS: BP 120/42
[2019-07-03] MEDS: ASPIRIN 81 MG TAB.CHEW GT SCH (08:09)
[2019-07-03] MEDS: ACIDOPHILUS/BULGARICUS CHEW TAB GT SCH ×2 (08:10→20:48)
[2019-07-03] MEDS: ATORVASTATIN 20 MG TABLET GT SCH (08:10)
[2019-07-03] MEDS: LOSARTAN POTASSIUM 50 MG TABLET GT SCH ×2 (08:10→20:48)
[2019-07-03] MEDS: METOPROLOL TARTRATE 50 MG TABLET GT SCH ×2 (08:10→20:49)
[2019-07-03] MEDS: HEPARIN SODIUM,PORCINE 5,000 UNITS/ML VIAL SQ SCH ×2 (08:11→20:50)
[2019-07-03] MEDS: NUTRISOURCE FIBER 4 GM PACKET GT SCH (08:11)
[2019-07-03] MEDS: COD LIVER OIL/ZINC OXIDE OINT 113 GM TUBE TP SCH ×2 (08:11→20:50)
[2019-07-03] MEDS: HYDROGEN PEROXIDE 3% 118 ML BOTTLE TP SCH ×2 (09:15→21:04)
--- NOTE | 2019-07-03 13:41 | NUR ---
GUTIERREZ once again followed up with patient's daughter Marina in order to schedule a day/time to meet in order to obtain Marina's signatures on patient's annual admission forms. GUTIERREZ had not heard back from Marina since GUTIERREZ's last email on 06/28 (see SS note dated 06/28). Marina responded, stating that she can meet with this GUTIERREZ on , 07/05/18 at 10am.
--- NOTE | 2019-07-03 14:54 | NUR ---
INTERDISCIPLINARY PLAN OF CARE CONFERENCE was held today. Patient's daughter Gin was present at the meeting. Dr. Leary and the Interdisciplinary Team reviewed the current plan of care in detail. RN reported on patient's current medical condition and recently completed eye treatment. No major changes in condition were reported. See RN IDT conference notes. See also all other disciplines IDT notes and physician's progress notes for additional details. Gin stated not having any questions/concerns at this time, and being content with the current plan of care.
[2019-07-03 20:50] VITALS: BP 118/50
[2019-07-04] MEDS: ALBUTEROL SULFATE 2.5 MG/3 ML NEBU NEB SCH ×4 (01:04→18:52)
[2019-07-04] MEDS: PANTOPRAZOLE ORAL SUSPENSION 40 MG SUSPDR.PKT GT SCH ×2 (06:10→17:07)
[2019-07-04 08:03] VITALS: BP 103/51
[2019-07-04] MEDS: ASPIRIN 81 MG TAB.CHEW GT SCH (08:14)
[2019-07-04] MEDS: NUTRISOURCE FIBER 4 GM PACKET GT SCH (08:15)
[2019-07-04] MEDS: ATORVASTATIN 20 MG TABLET GT SCH (08:15)
[2019-07-04] MEDS: ACIDOPHILUS/BULGARICUS CHEW TAB GT SCH ×2 (08:15→20:29)
[2019-07-04] MEDS: METOPROLOL TARTRATE 50 MG TABLET GT SCH ×2 (08:15→20:29)
[2019-07-04] MEDS: LOSARTAN POTASSIUM 50 MG TABLET GT SCH ×2 (08:15→20:28)
[2019-07-04] MEDS: HEPARIN SODIUM,PORCINE 5,000 UNITS/ML VIAL SQ SCH ×2 (08:16→21:05)
[2019-07-04] MEDS: COD LIVER OIL/ZINC OXIDE OINT 113 GM TUBE TP SCH ×2 (08:17→21:04)
[2019-07-04] MEDS: HYDROGEN PEROXIDE 3% 118 ML BOTTLE TP SCH ×2 (08:41→18:52)
--- NOTE | 2019-07-04 17:00 | NUR ---
Seen and examined by Dr Leary,new orders noted.
[2019-07-04 20:24] VITALS: BP 111/47
[2019-07-04] MEDS: MULTIVIT, IRON, MIN NO. 8, FA TABLET GT SCH (21:04)
[2019-07-05] MEDS: ALBUTEROL SULFATE 2.5 MG/3 ML NEBU NEB SCH ×4 (00:36→18:54)
[2019-07-05] MEDS: VITAL AF 1.2 1,000 ML LIQUID GT PRN (05:16)
[2019-07-05] MEDS: PANTOPRAZOLE ORAL SUSPENSION 40 MG SUSPDR.PKT GT SCH ×2 (06:05→17:10)
[2019-07-05] MEDS: ASPIRIN 81 MG TAB.CHEW GT SCH (08:40)
[2019-07-05] MEDS: LOSARTAN POTASSIUM 50 MG TABLET GT SCH ×2 (08:40→20:37)
[2019-07-05] MEDS: ATORVASTATIN 20 MG TABLET GT SCH (08:40)
[2019-07-05] MEDS: ACIDOPHILUS/BULGARICUS CHEW TAB GT SCH ×2 (08:40→20:37)
[2019-07-05] MEDS: HEPARIN SODIUM,PORCINE 5,000 UNITS/ML VIAL SQ SCH ×2 (08:41→20:39)
[2019-07-05] MEDS: METOPROLOL TARTRATE 50 MG TABLET GT SCH ×2 (08:41→20:37)
[2019-07-05] MEDS: NUTRISOURCE FIBER 4 GM PACKET GT SCH (08:41)
[2019-07-05] MEDS: COD LIVER OIL/ZINC OXIDE OINT 113 GM TUBE TP SCH ×2 (08:41→20:38)
[2019-07-05] MEDS: HYDROGEN PEROXIDE 3% 118 ML BOTTLE TP SCH ×2 (08:47→18:54)
[2019-07-05 10:48] VITALS: BP 109/57
--- NOTE | 2019-07-05 11:15 | NUR ---
Patient's daughter Marina arrived for her scheduled meeting with this SW. SW reviewed patient's annual admission paperwork with Marina, and obtained her signatures on all the forms. The paperwork included: Conditions of Admission, Patient Rights Acknowledgement, An Important Message from Medicare about your Rights, Documentation of Preferred Intensity of Care, Voluntary Prior Express Consent Form, Race and Ethnicity Patient Self-Identification, and the [facility] Agreement. GUTIERREZ offered Marina copies of the signed forms, and Marina declined, stating that he/she has copies from previous signing. For assessment/quarterly information, see patient's previous chart #[id number].
[2019-07-05 21:42] VITALS: BP 112/59
[2019-07-06] MEDS: ALBUTEROL SULFATE 2.5 MG/3 ML NEBU NEB SCH ×4 (00:44→19:58)
[2019-07-06] MEDS: PANTOPRAZOLE ORAL SUSPENSION 40 MG SUSPDR.PKT GT SCH ×2 (05:40→17:41)
[2019-07-06] MEDS: HYDROGEN PEROXIDE 3% 118 ML BOTTLE TP SCH ×2 (09:00→21:14)
[2019-07-06] MEDS: ASPIRIN 81 MG TAB.CHEW GT SCH (09:16)
[2019-07-06] MEDS: ACIDOPHILUS/BULGARICUS CHEW TAB GT SCH ×2 (09:19→20:11)
[2019-07-06] MEDS: LOSARTAN POTASSIUM 50 MG TABLET GT SCH ×2 (09:19→21:00)
[2019-07-06] MEDS: ATORVASTATIN 20 MG TABLET GT SCH (09:19)
[2019-07-06] MEDS: METOPROLOL TARTRATE 50 MG TABLET GT SCH ×2 (09:20→21:00)
[2019-07-06] MEDS: NUTRISOURCE FIBER 4 GM PACKET GT SCH (09:20)
[2019-07-06] MEDS: COD LIVER OIL/ZINC OXIDE OINT 113 GM TUBE TP SCH ×2 (09:21→20:13)
[2019-07-06] MEDS: HEPARIN SODIUM,PORCINE 5,000 UNITS/ML VIAL SQ SCH ×2 (09:21→20:59)
[2019-07-06 10:28] VITALS: BP 121/79
[2019-07-06] MEDS: MULTIVIT, IRON, MIN NO. 8, FA TABLET GT SCH (20:11)
[2019-07-06 22:23] VITALS: BP 100/43
[2019-07-07] MEDS: ALBUTEROL SULFATE 2.5 MG/3 ML NEBU NEB SCH ×4 (02:00→19:34)
[2019-07-07] MEDS: VITAL AF 1.2 1,000 ML LIQUID GT PRN (05:01)
[2019-07-07] MEDS: PANTOPRAZOLE ORAL SUSPENSION 40 MG SUSPDR.PKT GT SCH ×2 (05:01→17:34)
[2019-07-07] MEDS: HYDROGEN PEROXIDE 3% 118 ML BOTTLE TP SCH ×2 (09:00→21:47)
[2019-07-07] MEDS: LOSARTAN POTASSIUM 50 MG TABLET GT SCH ×2 (09:00→20:42)
[2019-07-07] MEDS: METOPROLOL TARTRATE 50 MG TABLET GT SCH ×2 (09:00→20:43)
[2019-07-07] MEDS: ASPIRIN 81 MG TAB.CHEW GT SCH (09:30)
[2019-07-07] MEDS: ACIDOPHILUS/BULGARICUS CHEW TAB GT SCH ×2 (09:31→21:54)
[2019-07-07] MEDS: ATORVASTATIN 20 MG TABLET GT SCH (09:31)
[2019-07-07] MEDS: NUTRISOURCE FIBER 4 GM PACKET GT SCH (09:32)
[2019-07-07] MEDS: COD LIVER OIL/ZINC OXIDE OINT 113 GM TUBE TP SCH ×2 (09:34→20:33)
[2019-07-07] MEDS: HEPARIN SODIUM,PORCINE 5,000 UNITS/ML VIAL SQ SCH ×2 (09:34→20:42)
[2019-07-07 11:03] VITALS: BP 95/50
[2019-07-07 22:01] VITALS: BP 114/57
[2019-07-08] MEDS: ALBUTEROL SULFATE 2.5 MG/3 ML NEBU NEB SCH ×4 (02:00→19:38)
[2019-07-08] MEDS: VITAL AF 1.2 1,000 ML LIQUID GT PRN (05:38)
[2019-07-08] MEDS: PANTOPRAZOLE ORAL SUSPENSION 40 MG SUSPDR.PKT GT SCH ×2 (05:57→17:16)
[2019-07-08] MEDS: ASPIRIN 81 MG TAB.CHEW GT SCH (08:28)
[2019-07-08] MEDS: ATORVASTATIN 20 MG TABLET GT SCH (08:28)
[2019-07-08] MEDS: ACIDOPHILUS/BULGARICUS CHEW TAB GT SCH ×2 (08:28→21:32)
[2019-07-08] MEDS: LOSARTAN POTASSIUM 50 MG TABLET GT SCH ×2 (08:28→21:00)
[2019-07-08] MEDS: NUTRISOURCE FIBER 4 GM PACKET GT SCH (08:29)
[2019-07-08] MEDS: METOPROLOL TARTRATE 50 MG TABLET GT SCH ×2 (08:29→21:00)
[2019-07-08] MEDS: HEPARIN SODIUM,PORCINE 5,000 UNITS/ML VIAL SQ SCH ×2 (08:30→21:59)
[2019-07-08] MEDS: COD LIVER OIL/ZINC OXIDE OINT 113 GM TUBE TP SCH ×2 (08:30→21:33)
[2019-07-08] MEDS: HYDROGEN PEROXIDE 3% 118 ML BOTTLE TP SCH ×2 (09:00→21:26)
[2019-07-08 11:07] VITALS: BP 111/61
[2019-07-08] MEDS: MULTIVIT, IRON, MIN NO. 8, FA TABLET GT SCH (21:33)
[2019-07-08 22:12] VITALS: BP 113/50
[2019-07-09] MEDS: ALBUTEROL SULFATE 2.5 MG/3 ML NEBU NEB SCH ×4 (00:59→19:31)
[2019-07-09] MEDS: PANTOPRAZOLE ORAL SUSPENSION 40 MG SUSPDR.PKT GT SCH ×2 (05:22→18:59)
[2019-07-09] MEDS: VITAL AF 1.2 1,000 ML LIQUID GT PRN ×2 (06:19→23:00)
[2019-07-09] MEDS: HYDROGEN PEROXIDE 3% 118 ML BOTTLE TP SCH ×2 (08:12→21:17)
--- NOTE | 2019-07-09 08:44 | NUR ---
Pharmacy Update from 07/09/19 IDT meeting VS: Temp 97.7 BP 120/42 HR 62 LABS: (from 07/03/19) Wbc 5.2 H/H 13.3/39.4 Plt 241 Na 133 K 4.2 Cl 98 CO2 28 BUN/SCr 22/0.7 BS 104 Ca 9.5 Phos 3.5 Mg 2.0 MEDICATION USE REVIEWED: > Pt not on any anti-psych medications or anti-seizure medications > Pt on heparin 5000units q12hr. Last plt 242, dosing appropriate for renal fxn. No bleeding noted > Pt on BP meds with hold parameters, reasonably controlled, last BP 120/42 Cozaar 50mg q12hr (hold SBP <120), Lopressor 50mg q12hr (hold SBP <110 or HR <60) Note: (DF) does not want to d/c or change current BP medications d/t patient's CAD and PMH of intraventricular hemorrhage/embolism despite episodes of low BP. Patient's BP is well controlled with hold parameters at this time. >PRN MED USAGE (Dec) Tylenol for pain used x 0 Tylenol for temp used x 0 NEW ORDERS NOTED: > Cipro eyedrops 06/10-06/17 for eye infection Patient reviewed and discussed with family in attendance with no medication issues or concerns noted. Completed treatment for eye infection, no resolved per medical staffing coordinator. Will continue to follow for further recs. Will monitor
[2019-07-09] MEDS: ASPIRIN 81 MG TAB.CHEW GT SCH (08:52)
[2019-07-09] MEDS: LOSARTAN POTASSIUM 50 MG TABLET GT SCH ×2 (08:53→20:40)
[2019-07-09] MEDS: ACIDOPHILUS/BULGARICUS CHEW TAB GT SCH ×2 (08:56→20:40)
[2019-07-09] MEDS: ATORVASTATIN 20 MG TABLET GT SCH (08:56)
[2019-07-09] MEDS: METOPROLOL TARTRATE 50 MG TABLET GT SCH ×2 (08:56→20:40)
[2019-07-09] MEDS: NUTRISOURCE FIBER 4 GM PACKET GT SCH (08:57)
[2019-07-09] MEDS: HEPARIN SODIUM,PORCINE 5,000 UNITS/ML VIAL SQ SCH ×2 (08:59→21:54)
[2019-07-09] MEDS: COD LIVER OIL/ZINC OXIDE OINT 113 GM TUBE TP SCH ×2 (08:59→20:40)
--- NOTE | 2019-07-09 19:09 | NUR ---
SEEN BY ENOCH Reyes AND FADI BUSTOS AND JEFFREYO.
[2019-07-09 20:54] VITALS: BP 123/68
[2019-07-10] MEDS: ALBUTEROL SULFATE 2.5 MG/3 ML NEBU NEB SCH ×4 (00:43→20:30)
[2019-07-10] MEDS: PANTOPRAZOLE ORAL SUSPENSION 40 MG SUSPDR.PKT GT SCH ×2 (06:46→17:11)
[2019-07-10] MEDS: ASPIRIN 81 MG TAB.CHEW GT SCH (08:19)
[2019-07-10] MEDS: ACIDOPHILUS/BULGARICUS CHEW TAB GT SCH ×2 (08:22→21:52)
[2019-07-10] MEDS: LOSARTAN POTASSIUM 50 MG TABLET GT SCH ×2 (08:22→21:00)
[2019-07-10] MEDS: ATORVASTATIN 20 MG TABLET GT SCH (08:23)
[2019-07-10] MEDS: NUTRISOURCE FIBER 4 GM PACKET GT SCH (08:23)
[2019-07-10] MEDS: METOPROLOL TARTRATE 50 MG TABLET GT SCH ×2 (08:23→21:00)
[2019-07-10] MEDS: COD LIVER OIL/ZINC OXIDE OINT 113 GM TUBE TP SCH ×2 (08:25→21:54)
[2019-07-10] MEDS: HEPARIN SODIUM,PORCINE 5,000 UNITS/ML VIAL SQ SCH ×2 (08:25→21:56)
[2019-07-10 08:30] VITALS: BP 101/45
[2019-07-10] MEDS: HYDROGEN PEROXIDE 3% 118 ML BOTTLE TP SCH ×2 (09:00→21:29)
--- NOTE | 2019-07-10 11:00 | NUR ---
Seen and examined by Rosie Walton,no new orders.
[2019-07-10 20:25] VITALS: BP 96/54
[2019-07-10] MEDS: MULTIVIT, IRON, MIN NO. 8, FA TABLET GT SCH (21:53)
[2019-07-11] MEDS: ALBUTEROL SULFATE 2.5 MG/3 ML NEBU NEB SCH ×4 (01:14→19:47)
[2019-07-11] MEDS: VITAL AF 1.2 1,000 ML LIQUID GT PRN (03:22)
[2019-07-11] MEDS: PANTOPRAZOLE ORAL SUSPENSION 40 MG SUSPDR.PKT GT SCH ×2 (06:11→17:45)
[2019-07-11] MEDS: HYDROGEN PEROXIDE 3% 118 ML BOTTLE TP SCH ×2 (09:00→21:52)
[2019-07-11] MEDS: HEPARIN SODIUM,PORCINE 5,000 UNITS/ML VIAL SQ SCH ×2 (09:00→21:49)
[2019-07-11] MEDS: NUTRISOURCE FIBER 4 GM PACKET GT SCH (09:08)
[2019-07-11] MEDS: ASPIRIN 81 MG TAB.CHEW GT SCH (09:08)
[2019-07-11] MEDS: LOSARTAN POTASSIUM 50 MG TABLET GT SCH ×2 (09:08→21:00)
[2019-07-11] MEDS: ACIDOPHILUS/BULGARICUS CHEW TAB GT SCH ×2 (09:08→21:47)
[2019-07-11] MEDS: ATORVASTATIN 20 MG TABLET GT SCH (09:08)
[2019-07-11] MEDS: METOPROLOL TARTRATE 50 MG TABLET GT SCH ×2 (09:08→21:00)
[2019-07-11] MEDS: COD LIVER OIL/ZINC OXIDE OINT 113 GM TUBE TP SCH ×2 (09:09→21:50)
[2019-07-11 11:21] VITALS: BP 131/68
--- NOTE | 2019-07-11 19:31 | NUR ---
Seen and examined by Dr Leary,with new orders noted.
[2019-07-11 20:47] VITALS: BP 100/54
[2019-07-12] MEDS: ALBUTEROL SULFATE 2.5 MG/3 ML NEBU NEB SCH ×4 (01:26→19:41)
[2019-07-12] MEDS: VITAL AF 1.2 1,000 ML LIQUID GT PRN (05:06)
[2019-07-12] MEDS: PANTOPRAZOLE ORAL SUSPENSION 40 MG SUSPDR.PKT GT SCH ×2 (05:20→17:02)
[2019-07-12] MEDS: HYDROGEN PEROXIDE 3% 118 ML BOTTLE TP SCH ×2 (07:47→21:15)
[2019-07-12] MEDS: ASPIRIN 81 MG TAB.CHEW GT SCH (08:39)
[2019-07-12] MEDS: LOSARTAN POTASSIUM 50 MG TABLET GT SCH ×2 (08:42→20:50)
[2019-07-12] MEDS: ACIDOPHILUS/BULGARICUS CHEW TAB GT SCH ×2 (08:42→20:51)
[2019-07-12] MEDS: METOPROLOL TARTRATE 50 MG TABLET GT SCH ×2 (08:45→20:51)
[2019-07-12] MEDS: ATORVASTATIN 20 MG TABLET GT SCH (08:45)
[2019-07-12] MEDS: NUTRISOURCE FIBER 4 GM PACKET GT SCH (08:46)
[2019-07-12] MEDS: HEPARIN SODIUM,PORCINE 5,000 UNITS/ML VIAL SQ SCH ×2 (08:47→20:49)
[2019-07-12] MEDS: COD LIVER OIL/ZINC OXIDE OINT 113 GM TUBE TP SCH ×2 (08:49→20:52)
[2019-07-12 10:34] VITALS: BP 131/50
[2019-07-12 20:42] VITALS: BP 106/52
[2019-07-12] MEDS: MULTIVIT, IRON, MIN NO. 8, FA TABLET GT SCH (20:52)
[2019-07-13] MEDS: ALBUTEROL SULFATE 2.5 MG/3 ML NEBU NEB SCH ×4 (01:50→19:13)
[2019-07-13] MEDS: VITAL AF 1.2 1,000 ML LIQUID GT PRN (04:24)
[2019-07-13] MEDS: PANTOPRAZOLE ORAL SUSPENSION 40 MG SUSPDR.PKT GT SCH ×2 (06:07→17:16)
[2019-07-13] MEDS: ASPIRIN 81 MG TAB.CHEW GT SCH (08:55)
[2019-07-13] MEDS: ACIDOPHILUS/BULGARICUS CHEW TAB GT SCH ×2 (08:55→20:20)
[2019-07-13] MEDS: LOSARTAN POTASSIUM 50 MG TABLET GT SCH ×2 (08:55→20:20)
[2019-07-13] MEDS: ATORVASTATIN 20 MG TABLET GT SCH (08:55)
[2019-07-13] MEDS: NUTRISOURCE FIBER 4 GM PACKET GT SCH (08:56)
[2019-07-13] MEDS: METOPROLOL TARTRATE 50 MG TABLET GT SCH ×2 (08:56→20:20)
[2019-07-13] MEDS: HEPARIN SODIUM,PORCINE 5,000 UNITS/ML VIAL SQ SCH ×2 (08:58→20:24)
[2019-07-13] MEDS: COD LIVER OIL/ZINC OXIDE OINT 113 GM TUBE TP SCH ×2 (08:58→20:24)
[2019-07-13] MEDS: HYDROGEN PEROXIDE 3% 118 ML BOTTLE TP SCH ×2 (09:00→19:13)
[2019-07-13 10:42] VITALS: BP 134/79
--- NOTE | 2019-07-13 16:53 | NUR ---
Seen by Marie Pritchard, new order carried, Ct abdomen with contrast with adrenal protocol in am.
[2019-07-13 20:45] VITALS: BP 124/62
[2019-07-14] MEDS: ALBUTEROL SULFATE 2.5 MG/3 ML NEBU NEB SCH ×4 (00:40→21:09)
[2019-07-14] MEDS: VITAL AF 1.2 1,000 ML LIQUID GT PRN (03:32)
[2019-07-14] MEDS: PANTOPRAZOLE ORAL SUSPENSION 40 MG SUSPDR.PKT GT SCH ×2 (05:21→17:41)
[2019-07-14] MEDS: LOSARTAN POTASSIUM 50 MG TABLET GT SCH ×2 (09:00→20:14)
[2019-07-14] MEDS: METOPROLOL TARTRATE 50 MG TABLET GT SCH ×2 (09:00→20:14)
[2019-07-14] MEDS: ASPIRIN 81 MG TAB.CHEW GT SCH (09:07)
[2019-07-14] MEDS: ACIDOPHILUS/BULGARICUS CHEW TAB GT SCH ×2 (09:10→20:14)
[2019-07-14] MEDS: ATORVASTATIN 20 MG TABLET GT SCH (09:11)
[2019-07-14] MEDS: NUTRISOURCE FIBER 4 GM PACKET GT SCH (09:14)
[2019-07-14] MEDS: HEPARIN SODIUM,PORCINE 5,000 UNITS/ML VIAL SQ SCH ×2 (09:14→20:15)
[2019-07-14] MEDS: COD LIVER OIL/ZINC OXIDE OINT 113 GM TUBE TP SCH ×2 (09:14→20:15)
[2019-07-14] MEDS: HYDROGEN PEROXIDE 3% 118 ML BOTTLE TP SCH ×2 (09:18→21:00)
[2019-07-14 11:39] LABS: CREATININE 0.7 mg/dL (0.6-1.3); POTASSIUM 4.7 mmol/L (3.5-5.1)
[2019-07-14 11:51] VITALS: BP 104/58
[2019-07-14 19:58] VITALS: BP 114/69
[2019-07-14] MEDS: MULTIVIT, IRON, MIN NO. 8, FA TABLET GT SCH (20:14)
[2019-07-15] MEDS: VITAL AF 1.2 1,000 ML LIQUID GT PRN ×2 (01:49→22:03)
[2019-07-15] MEDS: ALBUTEROL SULFATE 2.5 MG/3 ML NEBU NEB SCH ×4 (01:50→18:54)
[2019-07-15] MEDS: PANTOPRAZOLE ORAL SUSPENSION 40 MG SUSPDR.PKT GT SCH ×2 (05:21→17:34)
[2019-07-15 08:00] VITALS: BP 110/64
[2019-07-15] MEDS: ASPIRIN 81 MG TAB.CHEW GT SCH (08:56)
[2019-07-15] MEDS: LOSARTAN POTASSIUM 50 MG TABLET GT SCH ×2 (08:57→20:10)
[2019-07-15] MEDS: ATORVASTATIN 20 MG TABLET GT SCH (08:57)
[2019-07-15] MEDS: ACIDOPHILUS/BULGARICUS CHEW TAB GT SCH ×2 (08:57→20:11)
[2019-07-15] MEDS: METOPROLOL TARTRATE 50 MG TABLET GT SCH ×2 (08:58→20:11)
[2019-07-15] MEDS: NUTRISOURCE FIBER 4 GM PACKET GT SCH (08:58)
[2019-07-15] MEDS: HEPARIN SODIUM,PORCINE 5,000 UNITS/ML VIAL SQ SCH ×2 (08:59→20:15)
[2019-07-15] MEDS: COD LIVER OIL/ZINC OXIDE OINT 113 GM TUBE TP SCH ×2 (08:59→20:15)
[2019-07-15] MEDS: HYDROGEN PEROXIDE 3% 118 ML BOTTLE TP SCH ×2 (09:00→18:54)
[2019-07-15 23:00] VITALS: BP 108/52
[2019-07-16] MEDS: ALBUTEROL SULFATE 2.5 MG/3 ML NEBU NEB SCH ×4 (00:36→19:42)
[2019-07-16] MEDS: PANTOPRAZOLE ORAL SUSPENSION 40 MG SUSPDR.PKT GT SCH ×2 (05:27→17:22)
[2019-07-16] MEDS: LOSARTAN POTASSIUM 50 MG TABLET GT SCH ×2 (08:00→21:20)
[2019-07-16] MEDS: ASPIRIN 81 MG TAB.CHEW GT SCH (08:00)
[2019-07-16] MEDS: ATORVASTATIN 20 MG TABLET GT SCH (08:01)
[2019-07-16] MEDS: ACIDOPHILUS/BULGARICUS CHEW TAB GT SCH ×2 (08:01→21:20)
[2019-07-16] MEDS: NUTRISOURCE FIBER 4 GM PACKET GT SCH (08:01)
[2019-07-16] MEDS: METOPROLOL TARTRATE 50 MG TABLET GT SCH ×2 (08:01→21:00)
[2019-07-16] MEDS: HEPARIN SODIUM,PORCINE 5,000 UNITS/ML VIAL SQ SCH ×2 (08:02→21:25)
[2019-07-16] MEDS: COD LIVER OIL/ZINC OXIDE OINT 113 GM TUBE TP SCH ×2 (08:02→21:21)
[2019-07-16] MEDS: HYDROGEN PEROXIDE 3% 118 ML BOTTLE TP SCH ×2 (09:30→19:20)
[2019-07-16] MEDS: MULTIVIT, IRON, MIN NO. 8, FA TABLET GT SCH (21:20)
[2019-07-16 22:16] VITALS: BP 121/61
[2019-07-17] MEDS: ALBUTEROL SULFATE 2.5 MG/3 ML NEBU NEB SCH ×4 (01:46→19:31)
[2019-07-17] MEDS: VITAL AF 1.2 1,000 ML LIQUID GT PRN (04:42)
[2019-07-17] MEDS: PANTOPRAZOLE ORAL SUSPENSION 40 MG SUSPDR.PKT GT SCH ×2 (05:58→17:16)
[2019-07-17] MEDS: HEPARIN SODIUM,PORCINE 5,000 UNITS/ML VIAL SQ SCH ×2 (08:58→20:18)
[2019-07-17] MEDS: ASPIRIN 81 MG TAB.CHEW GT SCH (08:59)
[2019-07-17] MEDS: LOSARTAN POTASSIUM 50 MG TABLET GT SCH ×2 (09:00→20:16)
[2019-07-17] MEDS: METOPROLOL TARTRATE 50 MG TABLET GT SCH ×2 (09:00→20:17)
[2019-07-17] MEDS: ATORVASTATIN 20 MG TABLET GT SCH (09:02)
[2019-07-17] MEDS: COD LIVER OIL/ZINC OXIDE OINT 113 GM TUBE TP SCH ×2 (09:02→20:19)
[2019-07-17] MEDS: NUTRISOURCE FIBER 4 GM PACKET GT SCH (09:02)
[2019-07-17] MEDS: ACIDOPHILUS/BULGARICUS CHEW TAB GT SCH ×2 (09:02→20:16)
[2019-07-17 09:18] VITALS: BP 101/60
[2019-07-17] MEDS: HYDROGEN PEROXIDE 3% 118 ML BOTTLE TP SCH ×2 (09:58→21:35)
[2019-07-17 20:00] VITALS: BP 117/54
[2019-07-18] MEDS: ALBUTEROL SULFATE 2.5 MG/3 ML NEBU NEB SCH ×4 (00:41→18:54)
[2019-07-18] MEDS: VITAL AF 1.2 1,000 ML LIQUID GT PRN (04:15)
[2019-07-18] MEDS: PANTOPRAZOLE ORAL SUSPENSION 40 MG SUSPDR.PKT GT SCH ×2 (05:38→18:00)
[2019-07-18] MEDS: HEPARIN SODIUM,PORCINE 5,000 UNITS/ML VIAL SQ SCH ×2 (08:21→20:13)
[2019-07-18] MEDS: ASPIRIN 81 MG TAB.CHEW GT SCH (08:22)
[2019-07-18] MEDS: LOSARTAN POTASSIUM 50 MG TABLET GT SCH ×2 (08:24→20:11)
[2019-07-18] MEDS: ACIDOPHILUS/BULGARICUS CHEW TAB GT SCH ×2 (08:24→20:11)
[2019-07-18] MEDS: ATORVASTATIN 20 MG TABLET GT SCH (08:25)
[2019-07-18] MEDS: METOPROLOL TARTRATE 50 MG TABLET GT SCH ×2 (08:25→20:12)
[2019-07-18] MEDS: COD LIVER OIL/ZINC OXIDE OINT 113 GM TUBE TP SCH ×2 (08:26→20:13)
[2019-07-18] MEDS: NUTRISOURCE FIBER 4 GM PACKET GT SCH (08:26)
[2019-07-18] MEDS: HYDROGEN PEROXIDE 3% 118 ML BOTTLE TP SCH ×2 (09:55→18:54)
[2019-07-18 10:55] VITALS: BP 95/60
[2019-07-18 20:00] VITALS: BP 123/56
[2019-07-18] MEDS: MULTIVIT, IRON, MIN NO. 8, FA TABLET GT SCH (20:12)
[2019-07-19] MEDS: ALBUTEROL SULFATE 2.5 MG/3 ML NEBU NEB SCH ×4 (00:36→19:59)
[2019-07-19] MEDS: PANTOPRAZOLE ORAL SUSPENSION 40 MG SUSPDR.PKT GT SCH ×2 (01:00→17:04)
[2019-07-19] MEDS: HYDROGEN PEROXIDE 3% 118 ML BOTTLE TP SCH ×2 (07:33→21:11)
[2019-07-19 08:04] VITALS: BP 112/50
[2019-07-19] MEDS: ASPIRIN 81 MG TAB.CHEW GT SCH (08:54)
[2019-07-19] MEDS: LOSARTAN POTASSIUM 50 MG TABLET GT SCH ×2 (08:55→20:13)
[2019-07-19] MEDS: ATORVASTATIN 20 MG TABLET GT SCH (08:56)
[2019-07-19] MEDS: ACIDOPHILUS/BULGARICUS CHEW TAB GT SCH ×2 (08:56→20:14)
[2019-07-19] MEDS: METOPROLOL TARTRATE 50 MG TABLET GT SCH ×2 (08:57→20:14)
[2019-07-19] MEDS: NUTRISOURCE FIBER 4 GM PACKET GT SCH (08:58)
[2019-07-19] MEDS: COD LIVER OIL/ZINC OXIDE OINT 113 GM TUBE TP SCH ×2 (08:58→20:14)
[2019-07-19] MEDS: HEPARIN SODIUM,PORCINE 5,000 UNITS/ML VIAL SQ SCH ×2 (09:00→20:17)
--- NOTE | 2019-07-19 14:00 | NUR ---
SEEN BY DIAMOND FONTAINE AND TONIO RIOS AND WITH NNO.
[2019-07-19] MEDS: VITAL AF 1.2 1,000 ML LIQUID GT PRN (18:48)
[2019-07-19 20:00] VITALS: BP 116/61
[2019-07-20] MEDS: ALBUTEROL SULFATE 2.5 MG/3 ML NEBU NEB SCH ×4 (02:05→19:58)
[2019-07-20] MEDS: PANTOPRAZOLE ORAL SUSPENSION 40 MG SUSPDR.PKT GT SCH ×2 (06:23→17:11)
[2019-07-20 08:05] VITALS: BP 124/67
[2019-07-20] MEDS: ASPIRIN 81 MG TAB.CHEW GT SCH (08:45)
[2019-07-20] MEDS: ACIDOPHILUS/BULGARICUS CHEW TAB GT SCH ×2 (08:45→21:00)
[2019-07-20] MEDS: LOSARTAN POTASSIUM 50 MG TABLET GT SCH ×2 (08:45→21:00)
[2019-07-20] MEDS: ATORVASTATIN 20 MG TABLET GT SCH (08:45)
[2019-07-20] MEDS: HEPARIN SODIUM,PORCINE 5,000 UNITS/ML VIAL SQ SCH ×2 (08:46→21:00)
[2019-07-20] MEDS: COD LIVER OIL/ZINC OXIDE OINT 113 GM TUBE TP SCH ×2 (08:46→21:00)
[2019-07-20] MEDS: NUTRISOURCE FIBER 4 GM PACKET GT SCH (08:46)
[2019-07-20] MEDS: METOPROLOL TARTRATE 50 MG TABLET GT SCH ×2 (08:46→21:00)
[2019-07-20] MEDS: HYDROGEN PEROXIDE 3% 118 ML BOTTLE TP SCH ×2 (09:00→21:46)
[2019-07-20 20:00] VITALS: BP 115/64
[2019-07-20] MEDS: MULTIVIT, IRON, MIN NO. 8, FA TABLET GT SCH (21:00)
[2019-07-21] MEDS: ALBUTEROL SULFATE 2.5 MG/3 ML NEBU NEB SCH ×4 (01:51→19:39)
[2019-07-21] MEDS: PANTOPRAZOLE ORAL SUSPENSION 40 MG SUSPDR.PKT GT SCH ×2 (06:45→17:08)
[2019-07-21 08:30] VITALS: BP 111/56
[2019-07-21] MEDS: HYDROGEN PEROXIDE 3% 118 ML BOTTLE TP SCH ×2 (08:56→21:15)
[2019-07-21] MEDS: LOSARTAN POTASSIUM 50 MG TABLET GT SCH ×2 (09:00→20:30)
[2019-07-21] MEDS: METOPROLOL TARTRATE 50 MG TABLET GT SCH ×2 (09:00→20:30)
[2019-07-21] MEDS: ASPIRIN 81 MG TAB.CHEW GT SCH (09:20)
[2019-07-21] MEDS: HEPARIN SODIUM,PORCINE 5,000 UNITS/ML VIAL SQ SCH ×2 (09:23→20:33)
[2019-07-21] MEDS: ACIDOPHILUS/BULGARICUS CHEW TAB GT SCH ×2 (09:30→20:30)
[2019-07-21] MEDS: ATORVASTATIN 20 MG TABLET GT SCH (09:30)
[2019-07-21] MEDS: COD LIVER OIL/ZINC OXIDE OINT 113 GM TUBE TP SCH ×2 (09:32→20:31)
[2019-07-21] MEDS: NUTRISOURCE FIBER 4 GM PACKET GT SCH (09:32)
[2019-07-21 20:00] VITALS: BP 125/71
[2019-07-22] MEDS: ALBUTEROL SULFATE 2.5 MG/3 ML NEBU NEB SCH ×4 (00:47→19:28)
[2019-07-22] MEDS: PANTOPRAZOLE ORAL SUSPENSION 40 MG SUSPDR.PKT GT SCH ×2 (05:58→17:09)
[2019-07-22] MEDS: ASPIRIN 81 MG TAB.CHEW GT SCH (08:17)
[2019-07-22] MEDS: ACIDOPHILUS/BULGARICUS CHEW TAB GT SCH ×2 (08:17→20:28)
[2019-07-22] MEDS: LOSARTAN POTASSIUM 50 MG TABLET GT SCH ×2 (08:17→20:27)
[2019-07-22] MEDS: METOPROLOL TARTRATE 50 MG TABLET GT SCH ×2 (08:18→20:28)
[2019-07-22] MEDS: ATORVASTATIN 20 MG TABLET GT SCH (08:18)
[2019-07-22] MEDS: COD LIVER OIL/ZINC OXIDE OINT 113 GM TUBE TP SCH ×2 (08:19→20:29)
[2019-07-22] MEDS: NUTRISOURCE FIBER 4 GM PACKET GT SCH (08:19)
[2019-07-22] MEDS: HEPARIN SODIUM,PORCINE 5,000 UNITS/ML VIAL SQ SCH ×2 (08:20→20:30)
[2019-07-22] MEDS: HYDROGEN PEROXIDE 3% 118 ML BOTTLE TP SCH ×2 (08:31→21:00)
[2019-07-22 11:26] VITALS: BP 93/46
[2019-07-22 20:17] VITALS: BP 135/50
[2019-07-22] MEDS: MULTIVIT, IRON, MIN NO. 8, FA TABLET GT SCH (20:28)
[2019-07-23] MEDS: ALBUTEROL SULFATE 2.5 MG/3 ML NEBU NEB SCH ×4 (01:29→19:26)
[2019-07-23] MEDS: PANTOPRAZOLE ORAL SUSPENSION 40 MG SUSPDR.PKT GT SCH ×2 (05:31→17:03)
[2019-07-23] MEDS: VITAL AF 1.2 1,000 ML LIQUID GT PRN (06:50)
[2019-07-23] MEDS: ASPIRIN 81 MG TAB.CHEW GT SCH (08:16)
[2019-07-23] MEDS: LOSARTAN POTASSIUM 50 MG TABLET GT SCH ×2 (08:17→20:58)
[2019-07-23] MEDS: HYDROGEN PEROXIDE 3% 118 ML BOTTLE TP SCH ×2 (08:17→20:56)
[2019-07-23] MEDS: ACIDOPHILUS/BULGARICUS CHEW TAB GT SCH ×2 (08:17→20:58)
[2019-07-23] MEDS: METOPROLOL TARTRATE 50 MG TABLET GT SCH ×2 (08:18→21:01)
[2019-07-23] MEDS: COD LIVER OIL/ZINC OXIDE OINT 113 GM TUBE TP SCH ×2 (08:18→21:01)
[2019-07-23] MEDS: NUTRISOURCE FIBER 4 GM PACKET GT SCH (08:18)
[2019-07-23] MEDS: ATORVASTATIN 20 MG TABLET GT SCH (08:18)
[2019-07-23] MEDS: HEPARIN SODIUM,PORCINE 5,000 UNITS/ML VIAL SQ SCH ×2 (08:19→20:56)
[2019-07-23 09:07] VITALS: BP 97/46
--- NOTE | 2019-07-23 14:02 | NUR ---
SW notified patient's son Reji, daughter Marina, and [id number] Gin via email that the next IDT meeting for the patient has been scheduled for 07/31/2019 at 11am.
[2019-07-23 21:48] VITALS: BP 129/60
[2019-07-24] MEDS: ALBUTEROL SULFATE 2.5 MG/3 ML NEBU NEB SCH ×4 (01:05→19:25)
[2019-07-24] MEDS: VITAL AF 1.2 1,000 ML LIQUID GT PRN (04:00)
[2019-07-24] MEDS: PANTOPRAZOLE ORAL SUSPENSION 40 MG SUSPDR.PKT GT SCH ×2 (06:03→17:34)
[2019-07-24] MEDS: ASPIRIN 81 MG TAB.CHEW GT SCH (08:25)
[2019-07-24] MEDS: ATORVASTATIN 20 MG TABLET GT SCH (08:26)
[2019-07-24] MEDS: LOSARTAN POTASSIUM 50 MG TABLET GT SCH ×2 (08:26→20:17)
[2019-07-24] MEDS: METOPROLOL TARTRATE 50 MG TABLET GT SCH ×2 (08:26→20:17)
[2019-07-24] MEDS: ACIDOPHILUS/BULGARICUS CHEW TAB GT SCH ×2 (08:26→20:15)
[2019-07-24] MEDS: HEPARIN SODIUM,PORCINE 5,000 UNITS/ML VIAL SQ SCH ×2 (08:27→20:14)
[2019-07-24] MEDS: NUTRISOURCE FIBER 4 GM PACKET GT SCH (08:27)
[2019-07-24] MEDS: COD LIVER OIL/ZINC OXIDE OINT 113 GM TUBE TP SCH ×2 (08:27→20:15)
[2019-07-24] MEDS: HYDROGEN PEROXIDE 3% 118 ML BOTTLE TP SCH ×2 (09:06→21:00)
[2019-07-24 11:02] VITALS: BP 100/54
[2019-07-24] MEDS: MULTIVIT, IRON, MIN NO. 8, FA TABLET GT SCH (20:15)
[2019-07-24 20:32] VITALS: BP 101/58
[2019-07-25] MEDS: ALBUTEROL SULFATE 2.5 MG/3 ML NEBU NEB SCH ×4 (01:35→19:53)
[2019-07-25] MEDS: VITAL AF 1.2 1,000 ML LIQUID GT PRN (02:00)
[2019-07-25] MEDS: PANTOPRAZOLE ORAL SUSPENSION 40 MG SUSPDR.PKT GT SCH ×2 (05:15→17:26)
[2019-07-25] MEDS: ACIDOPHILUS/BULGARICUS CHEW TAB GT SCH ×2 (08:22→21:00)
[2019-07-25] MEDS: ASPIRIN 81 MG TAB.CHEW GT SCH (08:22)
[2019-07-25] MEDS: ATORVASTATIN 20 MG TABLET GT SCH (08:22)
[2019-07-25] MEDS: LOSARTAN POTASSIUM 50 MG TABLET GT SCH ×2 (08:22→21:00)
[2019-07-25] MEDS: COD LIVER OIL/ZINC OXIDE OINT 113 GM TUBE TP SCH ×2 (08:23→21:00)
[2019-07-25] MEDS: METOPROLOL TARTRATE 50 MG TABLET GT SCH ×2 (08:23→21:00)
[2019-07-25] MEDS: HEPARIN SODIUM,PORCINE 5,000 UNITS/ML VIAL SQ SCH ×2 (08:23→21:00)
[2019-07-25] MEDS: NUTRISOURCE FIBER 4 GM PACKET GT SCH (08:23)
[2019-07-25] MEDS: HYDROGEN PEROXIDE 3% 118 ML BOTTLE TP SCH ×2 (09:48→21:50)
[2019-07-25 11:53] VITALS: BP 114/45
--- NOTE | 2019-07-25 20:00 | NUR ---
VSS 98.5-59-18 BP 113/54. SATS 94%. PATIENT IS ALERT BUT HAS EYES CLOSED OFF AND ON. COLOR GOOD. PATIENT IS TRACHED TO 28% MIST MASK. SKIN WARM, DRY, AND INTACT. ABDOMEN SOFT WITH +BOWEL SOUNDS WITH INTACT GTUBE FOR VITAL 1.2 @ 55CC/HOUR-RESIDUAL=0--FEEDING CONTINUES WITHOUT INTERRUPTION. INCONTINENT OF BOWEL AND BLADDER. NO SEIZURES OR TREMORS. NO SIGNS OF ACUTE CARDIAC/RESPIRATORY DISTRESS OR SUPPRESSION.
[2019-07-25 20:10] VITALS: BP 113/54
--- NOTE | 2019-07-26 | NUR ---
NO CHANGE IN CONDITION. GTUBE RESIDUAL CONTINUES TO BE MINIMAL; SO, FEEDING CONTINUES. NURSE HELD COZAAR AND LOPRESSOR PER PHYSICIAN'S ORDER PARAMETERS. NO SIGNS OF DISTRESS.
[2019-07-26] MEDS: ALBUTEROL SULFATE 2.5 MG/3 ML NEBU NEB SCH ×4 (01:17→19:49)
[2019-07-26] MEDS: PANTOPRAZOLE ORAL SUSPENSION 40 MG SUSPDR.PKT GT SCH ×2 (06:57→17:14)
[2019-07-26 08:30] VITALS: BP 110/61
[2019-07-26] MEDS: ACIDOPHILUS/BULGARICUS CHEW TAB GT SCH ×2 (08:42→20:09)
[2019-07-26] MEDS: ASPIRIN 81 MG TAB.CHEW GT SCH (08:42)
[2019-07-26] MEDS: LOSARTAN POTASSIUM 50 MG TABLET GT SCH ×2 (08:42→20:09)
[2019-07-26] MEDS: ATORVASTATIN 20 MG TABLET GT SCH (08:43)
[2019-07-26] MEDS: METOPROLOL TARTRATE 50 MG TABLET GT SCH ×2 (08:43→20:10)
[2019-07-26] MEDS: NUTRISOURCE FIBER 4 GM PACKET GT SCH (08:43)
[2019-07-26] MEDS: HEPARIN SODIUM,PORCINE 5,000 UNITS/ML VIAL SQ SCH ×2 (08:44→20:20)
[2019-07-26] MEDS: COD LIVER OIL/ZINC OXIDE OINT 113 GM TUBE TP SCH ×2 (08:44→20:13)
[2019-07-26] MEDS: HYDROGEN PEROXIDE 3% 118 ML BOTTLE TP SCH ×2 (09:55→21:11)
[2019-07-26] MEDS: MULTIVIT, IRON, MIN NO. 8, FA TABLET GT SCH (20:12)
[2019-07-26 20:17] VITALS: BP 119/64
[2019-07-26] MEDS: VITAL AF 1.2 1,000 ML LIQUID GT PRN (23:19)
[2019-07-27] MEDS: ALBUTEROL SULFATE 2.5 MG/3 ML NEBU NEB SCH ×4 (01:04→19:00)
[2019-07-27] MEDS: PANTOPRAZOLE ORAL SUSPENSION 40 MG SUSPDR.PKT GT SCH ×2 (05:07→18:14)
[2019-07-27 08:00] VITALS: BP 119/44
[2019-07-27] MEDS: HYDROGEN PEROXIDE 3% 118 ML BOTTLE TP SCH ×2 (08:10→21:00)
[2019-07-27] MEDS: ASPIRIN 81 MG TAB.CHEW GT SCH (08:14)
[2019-07-27] MEDS: ACIDOPHILUS/BULGARICUS CHEW TAB GT SCH ×2 (08:15→20:10)
[2019-07-27] MEDS: LOSARTAN POTASSIUM 50 MG TABLET GT SCH ×2 (08:15→20:09)
[2019-07-27] MEDS: ATORVASTATIN 20 MG TABLET GT SCH (08:15)
[2019-07-27] MEDS: METOPROLOL TARTRATE 50 MG TABLET GT SCH ×2 (08:15→20:10)
[2019-07-27] MEDS: NUTRISOURCE FIBER 4 GM PACKET GT SCH (08:16)
[2019-07-27] MEDS: COD LIVER OIL/ZINC OXIDE OINT 113 GM TUBE TP SCH ×2 (08:16→20:10)
[2019-07-27] MEDS: HEPARIN SODIUM,PORCINE 5,000 UNITS/ML VIAL SQ SCH ×2 (08:16→20:16)
[2019-07-27 22:04] VITALS: BP 107/65
[2019-07-28] MEDS: VITAL AF 1.2 1,000 ML LIQUID GT PRN ×2 (00:10→21:56)
[2019-07-28] MEDS: ALBUTEROL SULFATE 2.5 MG/3 ML NEBU NEB SCH ×4 (01:45→19:55)
[2019-07-28] MEDS: PANTOPRAZOLE ORAL SUSPENSION 40 MG SUSPDR.PKT GT SCH ×2 (05:17→17:13)
[2019-07-28] MEDS: HYDROGEN PEROXIDE 3% 118 ML BOTTLE TP SCH ×2 (07:47→21:17)
[2019-07-28 08:04] VITALS: BP 95/55
[2019-07-28] MEDS: LOSARTAN POTASSIUM 50 MG TABLET GT SCH ×2 (08:33→20:42)
[2019-07-28] MEDS: ACIDOPHILUS/BULGARICUS CHEW TAB GT SCH ×2 (08:33→20:42)
[2019-07-28] MEDS: ASPIRIN 81 MG TAB.CHEW GT SCH (08:33)
[2019-07-28] MEDS: ATORVASTATIN 20 MG TABLET GT SCH (08:34)
[2019-07-28] MEDS: METOPROLOL TARTRATE 50 MG TABLET GT SCH ×2 (08:34→20:42)
[2019-07-28] MEDS: NUTRISOURCE FIBER 4 GM PACKET GT SCH (08:35)
[2019-07-28] MEDS: HEPARIN SODIUM,PORCINE 5,000 UNITS/ML VIAL SQ SCH ×2 (08:39→20:47)
[2019-07-28] MEDS: COD LIVER OIL/ZINC OXIDE OINT 113 GM TUBE TP SCH ×2 (08:49→20:42)
[2019-07-28] MEDS: MULTIVIT, IRON, MIN NO. 8, FA TABLET GT SCH (20:42)
[2019-07-28 22:09] VITALS: BP 113/58
[2019-07-29] MEDS: ALBUTEROL SULFATE 2.5 MG/3 ML NEBU NEB SCH ×4 (01:21→19:03)
[2019-07-29] MEDS: PANTOPRAZOLE ORAL SUSPENSION 40 MG SUSPDR.PKT GT SCH ×2 (05:48→17:18)
[2019-07-29] MEDS: HYDROGEN PEROXIDE 3% 118 ML BOTTLE TP SCH ×2 (07:56→19:03)
[2019-07-29 08:30] VITALS: BP 114/48
[2019-07-29] MEDS: LOSARTAN POTASSIUM 50 MG TABLET GT SCH ×2 (09:00→20:36)
[2019-07-29] MEDS: METOPROLOL TARTRATE 50 MG TABLET GT SCH ×2 (09:00→20:35)
[2019-07-29] MEDS: ATORVASTATIN 20 MG TABLET GT SCH (09:24)
[2019-07-29] MEDS: ASPIRIN 81 MG TAB.CHEW GT SCH (09:24)
[2019-07-29] MEDS: ACIDOPHILUS/BULGARICUS CHEW TAB GT SCH ×2 (09:24→20:35)
[2019-07-29] MEDS: COD LIVER OIL/ZINC OXIDE OINT 113 GM TUBE TP SCH ×2 (09:25→20:36)
[2019-07-29] MEDS: NUTRISOURCE FIBER 4 GM PACKET GT SCH (09:25)
[2019-07-29] MEDS: HEPARIN SODIUM,PORCINE 5,000 UNITS/ML VIAL SQ SCH ×2 (09:26→20:46)
[2019-07-29 22:13] VITALS: BP 111/52
[2019-07-30] MEDS: ALBUTEROL SULFATE 2.5 MG/3 ML NEBU NEB SCH ×4 (02:04→19:56)
[2019-07-30] MEDS: PANTOPRAZOLE ORAL SUSPENSION 40 MG SUSPDR.PKT GT SCH ×2 (05:26→17:45)
[2019-07-30] MEDS: VITAL AF 1.2 1,000 ML LIQUID GT PRN (05:27)
[2019-07-30] MEDS: LOSARTAN POTASSIUM 50 MG TABLET GT SCH ×2 (08:28→20:06)
[2019-07-30] MEDS: ASPIRIN 81 MG TAB.CHEW GT SCH (08:28)
[2019-07-30] MEDS: ACIDOPHILUS/BULGARICUS CHEW TAB GT SCH ×2 (08:28→20:06)
[2019-07-30] MEDS: METOPROLOL TARTRATE 50 MG TABLET GT SCH ×2 (08:29→20:06)
[2019-07-30] MEDS: NUTRISOURCE FIBER 4 GM PACKET GT SCH (08:30)
[2019-07-30] MEDS: ATORVASTATIN 20 MG TABLET GT SCH (08:32)
[2019-07-30] MEDS: HEPARIN SODIUM,PORCINE 5,000 UNITS/ML VIAL SQ SCH ×2 (08:32→20:08)
[2019-07-30] MEDS: COD LIVER OIL/ZINC OXIDE OINT 113 GM TUBE TP SCH ×2 (08:33→20:07)
[2019-07-30 09:20] VITALS: BP 110/66
[2019-07-30] MEDS: HYDROGEN PEROXIDE 3% 118 ML BOTTLE TP SCH ×2 (09:50→20:25)
[2019-07-30] MEDS: MULTIVIT, IRON, MIN NO. 8, FA TABLET GT SCH (20:07)
[2019-07-30 20:56] VITALS: BP 116/45
[2019-07-31] MEDS: ALBUTEROL SULFATE 2.5 MG/3 ML NEBU NEB SCH ×4 (01:38→19:20)
[2019-07-31] MEDS: PANTOPRAZOLE ORAL SUSPENSION 40 MG SUSPDR.PKT GT SCH ×2 (05:50→17:22)
[2019-07-31 08:06] LABS: CARBON DIOXIDE 29 mmol/L (21-32); CHLORIDE 98 mmol/L (98-107); CREATININE 0.6 mg/dL (0.6-1.3); GLUCOSE 106 mg/dL (74-106); MAGNESIUM 2.1 mg/dL (1.8-2.4); PHOSPHOROUS 3.5 mg/dL (2.5-4.9); POTASSIUM 4.1 mmol/L (3.5-5.1); UREA NITROGEN, BLOOD 19 mg/dL (7-18)
[2019-07-31 08:23] LABS: BASOPHILS # (AUTO) 0.1 K/uL (0.0-8.0); EOSINOPHILS # (AUTO) 0.4 K/uL (0.0-0.7); EOSINOPHILS % (AUTO) 4.9 % (0.0-7.0); HEMATOCRIT 38.2 % (36.7-47.1); HEMOGLOBIN 13.1 g/dL (12.5-16.3); LYMPHOCYTES # (AUTO) 1.7 K/uL (20.0-40.0); MEAN CORPUSCULAR HEMOGLOBIN 32.6 uug (23.8-33.4); MEAN CORPUSCULAR HGB CONC 34 g/dL (32.5-36.3); MEAN CORPUSCULAR VOLUME 95.3 fL (73.0-96.2); MONOCYTES # (AUTO) 0.4 K/uL (2.0-10.0); MONOCYTES % (AUTO) 5.7 % (0.0-11.0); NEUTROPHILS # (AUTO) 4.8 K/uL (1.8-8.9); NEUTROPHILS % (AUTO) 65.4 % (38.5-71.5); PLATELET COUNT (AUTO) 242 K/uL (152-348); RED BLOOD CELL COUNT(AUTO) 4.01 MIL/uL (4.06-5.63)
[2019-07-31 08:36] LABS: WHITE BLOOD COUNT (AUTO) 7.3 K/uL (3.6-10.2)
[2019-07-31] MEDS: ASPIRIN 81 MG TAB.CHEW GT SCH (08:36)
[2019-07-31] MEDS: ATORVASTATIN 20 MG TABLET GT SCH (08:36)
[2019-07-31] MEDS: ACIDOPHILUS/BULGARICUS CHEW TAB GT SCH ×2 (08:36→21:35)
[2019-07-31] MEDS: NUTRISOURCE FIBER 4 GM PACKET GT SCH (08:41)
[2019-07-31] MEDS: METOPROLOL TARTRATE 50 MG TABLET GT SCH ×2 (08:41→21:00)
[2019-07-31] MEDS: COD LIVER OIL/ZINC OXIDE OINT 113 GM TUBE TP SCH ×2 (08:42→21:38)
[2019-07-31] MEDS: HEPARIN SODIUM,PORCINE 5,000 UNITS/ML VIAL SQ SCH ×2 (08:43→21:41)
[2019-07-31] MEDS: HYDROGEN PEROXIDE 3% 118 ML BOTTLE TP SCH ×2 (09:00→21:08)
[2019-07-31] MEDS: LOSARTAN POTASSIUM 50 MG TABLET GT SCH ×2 (09:00→21:00)
[2019-07-31 09:05] VITALS: BP 109/60
--- NOTE | 2019-07-31 14:58 | NUR ---
INTERDISCIPLINARY PLAN OF CARE CONFERENCE was held today. Patient's [id number] Gin was present at the meeting. Dr. Leary and the Interdisciplinary Team reviewed the current plan of care in detail. RN reported on patient's current medical condition. No major changes were reported in patient's condition. See RN IDT conference notes. See also all other disciplines IDT notes and physician's progress notes for additional details. Gin's questions were addressed by Dr. Leary and the IDT team, and Gin expressed not having any concerns and being content with the current plan of care.
--- NOTE | 2019-07-31 15:15 | NUR ---
Pharmacy Update from Today's 07/31/19 IDT meeting VS: Temp 98.7 BP 109/60 HR 51 LABS: (from 07/31/19) Wbc 7.3 H/H 13.1/38.2 Plt 242 Na 134 K 4.1 Cl 98 CO2 29 BUN/SCr 19/0.6 BS 106 Ca 9.3 Phos 3.5 Mg 2.1 MEDICATION USE REVIEWED: > Pt not on any anti-psych medications or anti-seizure medications > Pt on heparin 5000units q12hr. Last plt 241, dosing appropriate for renal fxn. No bleeding noted > Pt on BP meds with hold parameters, reasonably controlled, last BP 109/60 Cozaar 50mg q12hr (hold SBP <120), Lopressor 50mg q12hr (hold SBP <110 or HR <60) Note: (DF) does not want to d/c or change current BP medications d/t patient's CAD and PMH of intraventricular hemorrhage/embolism despite episodes of low BP. Patient's BP is well controlled with hold parameters at this time. >PRN MED USAGE (Jun) Tylenol for pain used x 1 Tylenol for temp used x 0 Artificial tears used x1 NEW ORDERS NOTED: > NA Patient reviewed and discussed with family in attendance with no medication issues or concerns noted. No further medication recommendations per rx as pt remains stable. Will continue to follow
[2019-07-31] MEDS: VITAL AF 1.2 1,000 ML LIQUID GT PRN (17:23)
[2019-07-31 20:00] VITALS: BP 111/54
[2019-08-01] MEDS: ALBUTEROL SULFATE 2.5 MG/3 ML NEBU NEB SCH ×4 (00:44→19:00)
[2019-08-01] MEDS: PANTOPRAZOLE ORAL SUSPENSION 40 MG SUSPDR.PKT GT SCH ×2 (05:17→17:31)
[2019-08-01] MEDS: HYDROGEN PEROXIDE 3% 118 ML BOTTLE TP SCH ×2 (08:20→19:00)
[2019-08-01] MEDS: ASPIRIN 81 MG TAB.CHEW GT SCH (08:38)
[2019-08-01] MEDS: LOSARTAN POTASSIUM 50 MG TABLET GT SCH ×2 (08:47→21:00)
[2019-08-01] MEDS: ATORVASTATIN 20 MG TABLET GT SCH (08:48)
[2019-08-01] MEDS: METOPROLOL TARTRATE 50 MG TABLET GT SCH ×2 (08:48→21:00)
[2019-08-01] MEDS: ACIDOPHILUS/BULGARICUS CHEW TAB GT SCH ×2 (08:48→21:47)
[2019-08-01] MEDS: COD LIVER OIL/ZINC OXIDE OINT 113 GM TUBE TP SCH ×2 (08:49→21:54)
[2019-08-01] MEDS: NUTRISOURCE FIBER 4 GM PACKET GT SCH (08:49)
[2019-08-01] MEDS: HEPARIN SODIUM,PORCINE 5,000 UNITS/ML VIAL SQ SCH ×2 (08:54→21:48)
[2019-08-01 11:18] VITALS: BP 114/46
[2019-08-01 20:00] VITALS: BP 117/63
[2019-08-01] MEDS: MULTIVIT, IRON, MIN NO. 8, FA TABLET GT SCH (21:48)
[2019-08-02] MEDS: ALBUTEROL SULFATE 2.5 MG/3 ML NEBU NEB SCH ×4 (00:36→19:27)
[2019-08-02] MEDS: PANTOPRAZOLE ORAL SUSPENSION 40 MG SUSPDR.PKT GT SCH ×2 (05:24→17:38)
[2019-08-02 08:30] VITALS: BP 103/49
[2019-08-02] MEDS: HYDROGEN PEROXIDE 3% 118 ML BOTTLE TP SCH ×2 (09:00→21:05)
[2019-08-02] MEDS: METOPROLOL TARTRATE 50 MG TABLET GT SCH ×2 (09:00→20:18)
[2019-08-02] MEDS: ASPIRIN 81 MG TAB.CHEW GT SCH (09:24)
[2019-08-02] MEDS: LOSARTAN POTASSIUM 50 MG TABLET GT SCH ×2 (09:27→20:17)
[2019-08-02] MEDS: ACIDOPHILUS/BULGARICUS CHEW TAB GT SCH ×2 (09:27→20:17)
[2019-08-02] MEDS: ATORVASTATIN 20 MG TABLET GT SCH (09:27)
[2019-08-02] MEDS: NUTRISOURCE FIBER 4 GM PACKET GT SCH (09:28)
[2019-08-02] MEDS: COD LIVER OIL/ZINC OXIDE OINT 113 GM TUBE TP SCH ×2 (09:28→20:22)
[2019-08-02] MEDS: HEPARIN SODIUM,PORCINE 5,000 UNITS/ML VIAL SQ SCH ×2 (09:33→20:21)
[2019-08-02 20:00] VITALS: BP 106/54
[2019-08-03] MEDS: ALBUTEROL SULFATE 2.5 MG/3 ML NEBU NEB SCH ×4 (01:05→19:48)
[2019-08-03] MEDS: PANTOPRAZOLE ORAL SUSPENSION 40 MG SUSPDR.PKT GT SCH ×2 (05:16→17:04)
[2019-08-03] MEDS: VITAL AF 1.2 1,000 ML LIQUID GT PRN (05:16)
[2019-08-03 08:03] VITALS: BP 121/58
[2019-08-03] MEDS: LOSARTAN POTASSIUM 50 MG TABLET GT SCH ×2 (08:35→20:13)
[2019-08-03] MEDS: ATORVASTATIN 20 MG TABLET GT SCH (08:35)
[2019-08-03] MEDS: ASPIRIN 81 MG TAB.CHEW GT SCH (08:35)
[2019-08-03] MEDS: ACIDOPHILUS/BULGARICUS CHEW TAB GT SCH ×2 (08:35→20:13)
[2019-08-03] MEDS: METOPROLOL TARTRATE 50 MG TABLET GT SCH ×2 (08:36→20:14)
[2019-08-03] MEDS: NUTRISOURCE FIBER 4 GM PACKET GT SCH (08:36)
[2019-08-03] MEDS: COD LIVER OIL/ZINC OXIDE OINT 113 GM TUBE TP SCH ×2 (08:36→20:15)
[2019-08-03] MEDS: HEPARIN SODIUM,PORCINE 5,000 UNITS/ML VIAL SQ SCH ×2 (08:41→20:14)
[2019-08-03] MEDS: HYDROGEN PEROXIDE 3% 118 ML BOTTLE TP SCH ×2 (09:57→21:36)
[2019-08-03 20:00] VITALS: BP 108/58
[2019-08-03] MEDS: MULTIVIT, IRON, MIN NO. 8, FA TABLET GT SCH (20:14)
[2019-08-04] MEDS: ALBUTEROL SULFATE 2.5 MG/3 ML NEBU NEB SCH ×4 (01:45→19:28)
[2019-08-04] MEDS: VITAL AF 1.2 1,000 ML LIQUID GT PRN (04:16)
[2019-08-04] MEDS: PANTOPRAZOLE ORAL SUSPENSION 40 MG SUSPDR.PKT GT SCH ×2 (05:20→17:14)
[2019-08-04 08:01] VITALS: BP 97/61
[2019-08-04] MEDS: ASPIRIN 81 MG TAB.CHEW GT SCH (08:34)
[2019-08-04] MEDS: LOSARTAN POTASSIUM 50 MG TABLET GT SCH ×2 (08:35→20:15)
[2019-08-04] MEDS: ATORVASTATIN 20 MG TABLET GT SCH (08:36)
[2019-08-04] MEDS: METOPROLOL TARTRATE 50 MG TABLET GT SCH ×2 (08:36→20:15)
[2019-08-04] MEDS: ACIDOPHILUS/BULGARICUS CHEW TAB GT SCH ×2 (08:36→20:15)
[2019-08-04] MEDS: NUTRISOURCE FIBER 4 GM PACKET GT SCH (08:37)
[2019-08-04] MEDS: COD LIVER OIL/ZINC OXIDE OINT 113 GM TUBE TP SCH ×2 (08:37→20:16)
[2019-08-04] MEDS: HEPARIN SODIUM,PORCINE 5,000 UNITS/ML VIAL SQ SCH ×2 (08:41→20:16)
[2019-08-04] MEDS: HYDROGEN PEROXIDE 3% 118 ML BOTTLE TP SCH ×2 (09:00→21:01)
--- NOTE | 2019-08-04 09:00 | NUR ---
SEEN AND EXAMINED BY DR. GUTIERREZ AND WITH NNO.
[2019-08-04 20:00] VITALS: BP 122/68
[2019-08-05] MEDS: ALBUTEROL SULFATE 2.5 MG/3 ML NEBU NEB SCH ×4 (00:41→20:00)
[2019-08-05] MEDS: VITAL AF 1.2 1,000 ML LIQUID GT PRN ×2 (01:40→22:47)
[2019-08-05] MEDS: PANTOPRAZOLE ORAL SUSPENSION 40 MG SUSPDR.PKT GT SCH ×2 (05:10→17:23)
[2019-08-05] MEDS: ASPIRIN 81 MG TAB.CHEW GT SCH (08:43)
[2019-08-05] MEDS: ACIDOPHILUS/BULGARICUS CHEW TAB GT SCH ×2 (08:44→20:23)
[2019-08-05] MEDS: LOSARTAN POTASSIUM 50 MG TABLET GT SCH ×2 (08:44→20:23)
[2019-08-05] MEDS: ATORVASTATIN 20 MG TABLET GT SCH (08:45)
[2019-08-05] MEDS: METOPROLOL TARTRATE 50 MG TABLET GT SCH ×2 (08:45→20:23)
[2019-08-05] MEDS: NUTRISOURCE FIBER 4 GM PACKET GT SCH (08:46)
[2019-08-05] MEDS: HEPARIN SODIUM,PORCINE 5,000 UNITS/ML VIAL SQ SCH ×2 (08:47→20:24)
[2019-08-05] MEDS: COD LIVER OIL/ZINC OXIDE OINT 113 GM TUBE TP SCH ×2 (08:47→20:24)
[2019-08-05] MEDS: HYDROGEN PEROXIDE 3% 118 ML BOTTLE TP SCH ×2 (09:00→20:00)
--- NOTE | 2019-08-05 10:00 | NUR ---
PT. NOTED WITH AN OPEN ACNE SKIN LESION ON LOWER MID CHEST ,PICTURE TAKEN AND LOCAL TX STARTED AND ALSO NOTED WITH A NON OPEN ACNE SKIN LESION AND WITH LOCAL TX STARTED FROM DR. GUTIERREZ.
[2019-08-05 11:06] VITALS: BP 100/40
--- NOTE | 2019-08-05 19:00 | NUR ---
PT'S SON VISITING AT THIS TIME AND AWARE OF ACNE SKIN LESION AND TX AND IN AGREEMENT.
[2019-08-05] MEDS: MULTIVIT, IRON, MIN NO. 8, FA TABLET GT SCH (20:23)
[2019-08-05 20:44] VITALS: BP 130/50
[2019-08-06] MEDS: ALBUTEROL SULFATE 2.5 MG/3 ML NEBU NEB SCH ×4 (02:00→19:27)
[2019-08-06] MEDS: PANTOPRAZOLE ORAL SUSPENSION 40 MG SUSPDR.PKT GT SCH ×2 (05:33→17:15)
[2019-08-06 07:39] VITALS: BP 102/48
[2019-08-06] MEDS: ACIDOPHILUS/BULGARICUS CHEW TAB GT SCH ×2 (08:25→21:57)
[2019-08-06] MEDS: ATORVASTATIN 20 MG TABLET GT SCH (08:25)
[2019-08-06] MEDS: LOSARTAN POTASSIUM 50 MG TABLET GT SCH ×2 (08:25→21:00)
[2019-08-06] MEDS: ASPIRIN 81 MG TAB.CHEW GT SCH (08:25)
[2019-08-06] MEDS: METOPROLOL TARTRATE 50 MG TABLET GT SCH ×2 (08:26→21:00)
[2019-08-06] MEDS: NUTRISOURCE FIBER 4 GM PACKET GT SCH (08:26)
[2019-08-06] MEDS: HEPARIN SODIUM,PORCINE 5,000 UNITS/ML VIAL SQ SCH ×2 (08:26→21:56)
[2019-08-06] MEDS: NEOMY/BACITRA/POLYMYXIN B OINT UD PACKET TP SCH ×2 (08:27→21:57)
[2019-08-06] MEDS: COD LIVER OIL/ZINC OXIDE OINT 113 GM TUBE TP SCH ×2 (08:27→21:57)
[2019-08-06] MEDS: HYDROGEN PEROXIDE 3% 118 ML BOTTLE TP SCH ×2 (09:55→21:27)
--- NOTE | 2019-08-06 12:00 | NUR ---
NEW ORDER FOR DERMATOLOGY CONSULT TO EVALUATE BACK ACNE LIKE SKIN LESION ,MESSAGE LEFT TO SHAKE CRUSHER AND BLENDER OPERATOR TO F/U.
--- NOTE | 2019-08-06 12:11 | NUR ---
PT. WAS SEEN AND EXAMINED BY ENOCH Reyes AND WITH NEW ORDER CARRIED OUT.
--- NOTE | 2019-08-06 15:58 | NUR ---
SEEN AND EXAMINED BY ENOCH FARLEY.
[2019-08-06 21:46] VITALS: BP 100/59
[2019-08-07] MEDS: VITAL AF 1.2 1,000 ML LIQUID GT PRN (00:43)
[2019-08-07] MEDS: ALBUTEROL SULFATE 2.5 MG/3 ML NEBU NEB SCH ×4 (01:09→19:28)
[2019-08-07] MEDS: PANTOPRAZOLE ORAL SUSPENSION 40 MG SUSPDR.PKT GT SCH ×2 (05:43→17:36)
[2019-08-07] MEDS: ASPIRIN 81 MG TAB.CHEW GT SCH (08:47)
[2019-08-07] MEDS: ATORVASTATIN 20 MG TABLET GT SCH (08:47)
[2019-08-07] MEDS: ACIDOPHILUS/BULGARICUS CHEW TAB GT SCH ×2 (08:47→20:26)
[2019-08-07] MEDS: LOSARTAN POTASSIUM 50 MG TABLET GT SCH ×2 (08:47→20:26)
[2019-08-07] MEDS: METOPROLOL TARTRATE 50 MG TABLET GT SCH ×2 (08:48→20:28)
[2019-08-07] MEDS: HEPARIN SODIUM,PORCINE 5,000 UNITS/ML VIAL SQ SCH ×2 (08:48→20:29)
[2019-08-07] MEDS: NEOMY/BACITRA/POLYMYXIN B OINT UD PACKET TP SCH ×2 (08:48→20:30)
[2019-08-07] MEDS: COD LIVER OIL/ZINC OXIDE OINT 113 GM TUBE TP SCH ×2 (08:48→20:30)
[2019-08-07] MEDS: NUTRISOURCE FIBER 4 GM PACKET GT SCH (08:48)
[2019-08-07] MEDS: HYDROGEN PEROXIDE 3% 118 ML BOTTLE TP SCH ×2 (09:40→21:10)
[2019-08-07 10:59] VITALS: BP 106/55
--- NOTE | 2019-08-07 12:19 | NUR ---
Physician's order for dermatology consultation, along with a copy of the patient's face sheet, was faxed to Dr. Posey at [phone] (tel # [phone]). supervisor line departmentELI wang.
[2019-08-07] MEDS: MULTIVIT, IRON, MIN NO. 8, FA TABLET GT SCH (20:28)
[2019-08-07 20:50] VITALS: BP 124/50
[2019-08-08] MEDS: ALBUTEROL SULFATE 2.5 MG/3 ML NEBU NEB SCH ×4 (00:37→20:22)
[2019-08-08] MEDS: PANTOPRAZOLE ORAL SUSPENSION 40 MG SUSPDR.PKT GT SCH ×2 (06:34→17:13)
[2019-08-08] MEDS: METOPROLOL TARTRATE 50 MG TABLET GT SCH ×2 (09:00→20:21)
[2019-08-08] MEDS: ASPIRIN 81 MG TAB.CHEW GT SCH (09:10)
[2019-08-08] MEDS: ACIDOPHILUS/BULGARICUS CHEW TAB GT SCH ×2 (09:13→20:20)
[2019-08-08] MEDS: LOSARTAN POTASSIUM 50 MG TABLET GT SCH ×2 (09:13→20:20)
[2019-08-08] MEDS: ATORVASTATIN 20 MG TABLET GT SCH (09:13)
[2019-08-08] MEDS: NEOMY/BACITRA/POLYMYXIN B OINT UD PACKET TP SCH ×2 (09:14→20:22)
[2019-08-08] MEDS: NUTRISOURCE FIBER 4 GM PACKET GT SCH (09:14)
[2019-08-08] MEDS: COD LIVER OIL/ZINC OXIDE OINT 113 GM TUBE TP SCH ×2 (09:14→20:22)
[2019-08-08] MEDS: HEPARIN SODIUM,PORCINE 5,000 UNITS/ML VIAL SQ SCH ×2 (09:15→20:22)
[2019-08-08] MEDS: HYDROGEN PEROXIDE 3% 118 ML BOTTLE TP SCH ×2 (09:55→20:22)
[2019-08-08 10:56] VITALS: BP 134/76
--- NOTE | 2019-08-08 14:26 | NUR ---
GUTIERREZ received a phone call from Lena at Dr. Posey's office [phone], who stated that she had misplaced the fax that GUTIERREZ had sent yesterday (see SS notes dated 08/07). Lena asked this GUTIERREZ if she can re-fax the dermatology consultation order for the patient. GUTIERREZ re-faxed the order and a copy of patient's face sheet to Dr. Posey's office (fax # [phone]).
[2019-08-08 20:00] VITALS: BP 111/58
[2019-08-09] MEDS: ALBUTEROL SULFATE 2.5 MG/3 ML NEBU NEB SCH ×4 (02:12→19:50)
[2019-08-09] MEDS: PANTOPRAZOLE ORAL SUSPENSION 40 MG SUSPDR.PKT GT SCH ×2 (06:17→17:08)
[2019-08-09] MEDS: HYDROGEN PEROXIDE 3% 118 ML BOTTLE TP SCH ×2 (08:00→20:58)
[2019-08-09] MEDS: ACIDOPHILUS/BULGARICUS CHEW TAB GT SCH ×2 (08:32→20:07)
[2019-08-09] MEDS: METOPROLOL TARTRATE 50 MG TABLET GT SCH ×2 (08:32→20:07)
[2019-08-09] MEDS: ASPIRIN 81 MG TAB.CHEW GT SCH (08:32)
[2019-08-09] MEDS: NUTRISOURCE FIBER 4 GM PACKET GT SCH (08:32)
[2019-08-09] MEDS: ATORVASTATIN 20 MG TABLET GT SCH (08:32)
[2019-08-09] MEDS: LOSARTAN POTASSIUM 50 MG TABLET GT SCH ×2 (08:32→20:07)
[2019-08-09] MEDS: HEPARIN SODIUM,PORCINE 5,000 UNITS/ML VIAL SQ SCH ×2 (08:33→20:08)
[2019-08-09] MEDS: NEOMY/BACITRA/POLYMYXIN B OINT UD PACKET TP SCH ×2 (08:33→20:09)
[2019-08-09] MEDS: COD LIVER OIL/ZINC OXIDE OINT 113 GM TUBE TP SCH ×2 (08:33→20:09)
[2019-08-09 11:56] VITALS: BP 127/74
[2019-08-09] MEDS: VITAL AF 1.2 1,000 ML LIQUID GT PRN (13:06)
--- NOTE | 2019-08-09 19:00 | NUR ---
SEEN BY WITH NNO.
[2019-08-09] MEDS: MULTIVIT, IRON, MIN NO. 8, FA TABLET GT SCH (20:08)
[2019-08-09 20:37] VITALS: BP 118/67
[2019-08-10] MEDS: ALBUTEROL SULFATE 2.5 MG/3 ML NEBU NEB SCH ×4 (00:40→19:00)
[2019-08-10] MEDS: VITAL AF 1.2 1,000 ML LIQUID GT PRN (06:00)
[2019-08-10] MEDS: PANTOPRAZOLE ORAL SUSPENSION 40 MG SUSPDR.PKT GT SCH ×2 (06:05→17:06)
[2019-08-10] MEDS: ASPIRIN 81 MG TAB.CHEW GT SCH (08:42)
[2019-08-10] MEDS: LOSARTAN POTASSIUM 50 MG TABLET GT SCH ×2 (08:43→20:29)
[2019-08-10] MEDS: ATORVASTATIN 20 MG TABLET GT SCH (08:43)
[2019-08-10] MEDS: ACIDOPHILUS/BULGARICUS CHEW TAB GT SCH ×2 (08:43→20:29)
[2019-08-10] MEDS: METOPROLOL TARTRATE 50 MG TABLET GT SCH ×2 (08:44→20:30)
[2019-08-10] MEDS: COD LIVER OIL/ZINC OXIDE OINT 113 GM TUBE TP SCH ×2 (08:44→20:30)
[2019-08-10] MEDS: NEOMY/BACITRA/POLYMYXIN B OINT UD PACKET TP SCH ×2 (08:44→20:30)
[2019-08-10] MEDS: HEPARIN SODIUM,PORCINE 5,000 UNITS/ML VIAL SQ SCH ×2 (08:44→20:58)
[2019-08-10] MEDS: NUTRISOURCE FIBER 4 GM PACKET GT SCH (09:00)
[2019-08-10] MEDS: HYDROGEN PEROXIDE 3% 118 ML BOTTLE TP SCH ×2 (09:35→20:30)
[2019-08-10 10:33] VITALS: BP 131/74
[2019-08-10 20:40] VITALS: BP 130/51
[2019-08-11] MEDS: ALBUTEROL SULFATE 2.5 MG/3 ML NEBU NEB SCH ×4 (00:30→19:09)
[2019-08-11] MEDS: VITAL AF 1.2 1,000 ML LIQUID GT PRN (05:14)
[2019-08-11] MEDS: PANTOPRAZOLE ORAL SUSPENSION 40 MG SUSPDR.PKT GT SCH ×2 (05:14→17:24)
[2019-08-11 08:04] VITALS: BP 114/61
[2019-08-11] MEDS: METOPROLOL TARTRATE 50 MG TABLET GT SCH ×2 (09:00→21:00)
[2019-08-11] MEDS: LOSARTAN POTASSIUM 50 MG TABLET GT SCH ×2 (09:00→21:00)
[2019-08-11] MEDS: ASPIRIN 81 MG TAB.CHEW GT SCH (09:13)
[2019-08-11] MEDS: COD LIVER OIL/ZINC OXIDE OINT 113 GM TUBE TP SCH ×2 (09:14→20:58)
[2019-08-11] MEDS: ACIDOPHILUS/BULGARICUS CHEW TAB GT SCH ×2 (09:14→21:21)
[2019-08-11] MEDS: NUTRISOURCE FIBER 4 GM PACKET GT SCH (09:14)
[2019-08-11] MEDS: ATORVASTATIN 20 MG TABLET GT SCH (09:14)
[2019-08-11] MEDS: NEOMY/BACITRA/POLYMYXIN B OINT UD PACKET TP SCH ×2 (09:14→20:58)
[2019-08-11] MEDS: HEPARIN SODIUM,PORCINE 5,000 UNITS/ML VIAL SQ SCH ×2 (09:15→20:57)
[2019-08-11] MEDS: HYDROGEN PEROXIDE 3% 118 ML BOTTLE TP SCH ×2 (09:46→19:09)
[2019-08-11 20:46] VITALS: BP 118/66
[2019-08-11] MEDS: MULTIVIT, IRON, MIN NO. 8, FA TABLET GT SCH (21:22)
[2019-08-12] MEDS: ALBUTEROL SULFATE 2.5 MG/3 ML NEBU NEB SCH ×4 (00:40→19:28)
[2019-08-12] MEDS: VITAL AF 1.2 1,000 ML LIQUID GT PRN (03:09)
[2019-08-12] MEDS: PANTOPRAZOLE ORAL SUSPENSION 40 MG SUSPDR.PKT GT SCH ×2 (05:06→17:31)
[2019-08-12] MEDS: LOSARTAN POTASSIUM 50 MG TABLET GT SCH ×2 (09:00→20:23)
[2019-08-12] MEDS: METOPROLOL TARTRATE 50 MG TABLET GT SCH ×2 (09:00→20:23)
[2019-08-12] MEDS: ASPIRIN 81 MG TAB.CHEW GT SCH (09:00)
[2019-08-12] MEDS: ACIDOPHILUS/BULGARICUS CHEW TAB GT SCH ×2 (09:01→20:23)
[2019-08-12] MEDS: NUTRISOURCE FIBER 4 GM PACKET GT SCH (09:01)
[2019-08-12] MEDS: ATORVASTATIN 20 MG TABLET GT SCH (09:01)
[2019-08-12] MEDS: HEPARIN SODIUM,PORCINE 5,000 UNITS/ML VIAL SQ SCH ×2 (09:02→20:16)
[2019-08-12] MEDS: COD LIVER OIL/ZINC OXIDE OINT 113 GM TUBE TP SCH ×2 (09:02→20:23)
[2019-08-12] MEDS: NEOMY/BACITRA/POLYMYXIN B OINT UD PACKET TP SCH ×2 (09:03→20:23)
[2019-08-12] MEDS: HYDROGEN PEROXIDE 3% 118 ML BOTTLE TP SCH ×2 (09:18→21:12)
[2019-08-12 20:55] VITALS: BP 121/47
[2019-08-13] MEDS: ALBUTEROL SULFATE 2.5 MG/3 ML NEBU NEB SCH ×4 (00:56→20:07)
[2019-08-13] MEDS: VITAL AF 1.2 1,000 ML LIQUID GT PRN (01:51)
--- NOTE | 2019-08-13 04:16 | NUR ---
PT NOTED WITH SCRATCH SKIN ON (L) UPPER ARM WITH NEW TX.
[2019-08-13] MEDS: PANTOPRAZOLE ORAL SUSPENSION 40 MG SUSPDR.PKT GT SCH ×2 (05:36→17:41)
[2019-08-13] MEDS: ASPIRIN 81 MG TAB.CHEW GT SCH (08:33)
[2019-08-13] MEDS: LOSARTAN POTASSIUM 50 MG TABLET GT SCH ×2 (08:33→20:17)
[2019-08-13] MEDS: NUTRISOURCE FIBER 4 GM PACKET GT SCH (08:34)
[2019-08-13] MEDS: ATORVASTATIN 20 MG TABLET GT SCH (08:34)
[2019-08-13] MEDS: ACIDOPHILUS/BULGARICUS CHEW TAB GT SCH ×2 (08:34→20:21)
[2019-08-13] MEDS: METOPROLOL TARTRATE 50 MG TABLET GT SCH ×2 (08:34→20:21)
[2019-08-13] MEDS: COD LIVER OIL/ZINC OXIDE OINT 113 GM TUBE TP SCH ×2 (08:35→20:22)
[2019-08-13] MEDS: NEOMY/BACITRA/POLYMYXIN B OINT UD PACKET TP SCH ×4 (08:35→20:22)
[2019-08-13] MEDS: HEPARIN SODIUM,PORCINE 5,000 UNITS/ML VIAL SQ SCH ×2 (08:35→20:26)
[2019-08-13 09:18] VITALS: BP 109/62
[2019-08-13] MEDS: HYDROGEN PEROXIDE 3% 118 ML BOTTLE TP SCH ×2 (09:57→21:55)
[2019-08-13] MEDS: MULTIVIT, IRON, MIN NO. 8, FA TABLET GT SCH (20:22)
[2019-08-13 20:41] VITALS: BP 117/42
[2019-08-14] MEDS: ALBUTEROL SULFATE 2.5 MG/3 ML NEBU NEB SCH ×4 (02:29→19:25)
[2019-08-14] MEDS: VITAL AF 1.2 1,000 ML LIQUID GT PRN (03:23)
[2019-08-14] MEDS: PANTOPRAZOLE ORAL SUSPENSION 40 MG SUSPDR.PKT GT SCH ×2 (05:42→17:49)
[2019-08-14 07:10] LABS: CARBON DIOXIDE 28 mmol/L (21-32); CHLORIDE 104 mmol/L (98-107); CREATININE 0.5 mg/dL (0.6-1.3); GLUCOSE 120 mg/dL (74-106); MAGNESIUM 2.1 mg/dL (1.8-2.4); PHOSPHOROUS 3.4 mg/dL (2.5-4.9); POTASSIUM 4.1 mmol/L (3.5-5.1); UREA NITROGEN, BLOOD 18 mg/dL (7-18)
[2019-08-14 07:25] LABS: BASOPHILS % (AUTO) 0.4 % (0.0-2.0); EOSINOPHILS # (AUTO) 0.5 K/uL (0.0-0.7); EOSINOPHILS % (AUTO) 7.8 % (0.0-7.0); HEMATOCRIT 36.1 % (36.7-47.1); HEMOGLOBIN 12.6 g/dL (12.5-16.3); LYMPHOCYTES # (AUTO) 1.5 K/uL (20.0-40.0); LYMPHOCYTES % (AUTO) 25.1 % (20.5-51.5); MEAN CORPUSCULAR HEMOGLOBIN 33.5 uug (23.8-33.4); MEAN CORPUSCULAR HGB CONC 35 g/dL (32.5-36.3); MEAN CORPUSCULAR VOLUME 96.1 fL (73.0-96.2); MONOCYTES # (AUTO) 0.3 K/uL (2.0-10.0); MONOCYTES % (AUTO) 5.9 % (0.0-11.0); NEUTROPHILS # (AUTO) 3.6 K/uL (1.8-8.9); NEUTROPHILS % (AUTO) 60.8 % (38.5-71.5); PLATELET COUNT (AUTO) 240 K/uL (152-348); RED BLOOD CELL COUNT(AUTO) 3.75 MIL/uL (4.06-5.63); WHITE BLOOD COUNT (AUTO) 5.9 K/uL (3.6-10.2)
[2019-08-14] MEDS: LOSARTAN POTASSIUM 50 MG TABLET GT SCH ×2 (09:00→20:13)
[2019-08-14] MEDS: METOPROLOL TARTRATE 50 MG TABLET GT SCH ×2 (09:00→20:14)
[2019-08-14] MEDS: ASPIRIN 81 MG TAB.CHEW GT SCH (09:15)
[2019-08-14] MEDS: ACIDOPHILUS/BULGARICUS CHEW TAB GT SCH ×2 (09:16→20:13)
[2019-08-14] MEDS: NUTRISOURCE FIBER 4 GM PACKET GT SCH (09:16)
[2019-08-14] MEDS: ATORVASTATIN 20 MG TABLET GT SCH (09:16)
[2019-08-14] MEDS: COD LIVER OIL/ZINC OXIDE OINT 113 GM TUBE TP SCH ×2 (09:17→20:14)
[2019-08-14] MEDS: HEPARIN SODIUM,PORCINE 5,000 UNITS/ML VIAL SQ SCH ×2 (09:17→20:13)
[2019-08-14] MEDS: NEOMY/BACITRA/POLYMYXIN B OINT UD PACKET TP SCH ×2 (09:18→20:14)
[2019-08-14] MEDS: HYDROGEN PEROXIDE 3% 118 ML BOTTLE TP SCH ×2 (09:40→21:17)
[2019-08-14 10:29] VITALS: BP 107/61
[2019-08-14 20:07] VITALS: BP 124/67
[2019-08-15] MEDS: VITAL AF 1.2 1,000 ML LIQUID GT PRN (00:42)
[2019-08-15] MEDS: ALBUTEROL SULFATE 2.5 MG/3 ML NEBU NEB SCH ×4 (00:42→20:05)
[2019-08-15] MEDS: PANTOPRAZOLE ORAL SUSPENSION 40 MG SUSPDR.PKT GT SCH ×2 (05:21→18:22)
[2019-08-15] MEDS: ACIDOPHILUS/BULGARICUS CHEW TAB GT SCH ×2 (08:02→20:39)
[2019-08-15] MEDS: ATORVASTATIN 20 MG TABLET GT SCH (08:02)
[2019-08-15] MEDS: COD LIVER OIL/ZINC OXIDE OINT 113 GM TUBE TP SCH ×2 (08:02→20:41)
[2019-08-15] MEDS: HEPARIN SODIUM,PORCINE 5,000 UNITS/ML VIAL SQ SCH ×2 (08:02→21:24)
[2019-08-15] MEDS: METOPROLOL TARTRATE 50 MG TABLET GT SCH ×2 (08:02→20:39)
[2019-08-15] MEDS: ASPIRIN 81 MG TAB.CHEW GT SCH (08:02)
[2019-08-15] MEDS: LOSARTAN POTASSIUM 50 MG TABLET GT SCH ×2 (08:02→20:40)
[2019-08-15] MEDS: NEOMY/BACITRA/POLYMYXIN B OINT UD PACKET TP SCH ×2 (08:02→20:41)
[2019-08-15] MEDS: NUTRISOURCE FIBER 4 GM PACKET GT SCH (08:02)
[2019-08-15] MEDS: HYDROGEN PEROXIDE 3% 118 ML BOTTLE TP SCH ×2 (09:12→21:56)
[2019-08-15 10:57] VITALS: BP 102/63
[2019-08-15] MEDS: MULTIVIT, IRON, MIN NO. 8, FA TABLET GT SCH (20:39)
[2019-08-15 21:13] VITALS: BP 112/57
[2019-08-16] MEDS: ALBUTEROL SULFATE 2.5 MG/3 ML NEBU NEB SCH ×4 (01:10→19:40)
[2019-08-16] MEDS: PANTOPRAZOLE ORAL SUSPENSION 40 MG SUSPDR.PKT GT SCH ×2 (05:17→17:08)
[2019-08-16] MEDS: VITAL AF 1.2 1,000 ML LIQUID GT PRN (05:17)
[2019-08-16] MEDS: LOSARTAN POTASSIUM 50 MG TABLET GT SCH ×2 (08:35→20:13)
[2019-08-16] MEDS: ASPIRIN 81 MG TAB.CHEW GT SCH (08:35)
[2019-08-16] MEDS: ATORVASTATIN 20 MG TABLET GT SCH (08:36)
[2019-08-16] MEDS: METOPROLOL TARTRATE 50 MG TABLET GT SCH ×2 (08:36→20:13)
[2019-08-16] MEDS: ACIDOPHILUS/BULGARICUS CHEW TAB GT SCH ×2 (08:36→20:13)
[2019-08-16] MEDS: NUTRISOURCE FIBER 4 GM PACKET GT SCH (08:36)
[2019-08-16] MEDS: HEPARIN SODIUM,PORCINE 5,000 UNITS/ML VIAL SQ SCH ×2 (08:37→20:14)
[2019-08-16] MEDS: COD LIVER OIL/ZINC OXIDE OINT 113 GM TUBE TP SCH ×2 (08:37→20:13)
[2019-08-16] MEDS: NEOMY/BACITRA/POLYMYXIN B OINT UD PACKET TP SCH ×2 (08:37→20:14)
[2019-08-16] MEDS: HYDROGEN PEROXIDE 3% 118 ML BOTTLE TP SCH ×2 (09:43→20:33)
--- NOTE | 2019-08-16 14:19 | NUR ---
SEEN BY DR. REID AND WITH NNO.
[2019-08-16 20:29] VITALS: BP 114/55
[2019-08-17] MEDS: ALBUTEROL SULFATE 2.5 MG/3 ML NEBU NEB SCH ×4 (01:22→19:58)
[2019-08-17] MEDS: PANTOPRAZOLE ORAL SUSPENSION 40 MG SUSPDR.PKT GT SCH ×2 (05:13→17:36)
[2019-08-17 08:00] VITALS: BP 116/60
[2019-08-17] MEDS: ACIDOPHILUS/BULGARICUS CHEW TAB GT SCH ×2 (08:45→20:12)
[2019-08-17] MEDS: LOSARTAN POTASSIUM 50 MG TABLET GT SCH ×2 (08:45→20:12)
[2019-08-17] MEDS: ASPIRIN 81 MG TAB.CHEW GT SCH (08:45)
[2019-08-17] MEDS: ATORVASTATIN 20 MG TABLET GT SCH (08:46)
[2019-08-17] MEDS: NUTRISOURCE FIBER 4 GM PACKET GT SCH (08:46)
[2019-08-17] MEDS: METOPROLOL TARTRATE 50 MG TABLET GT SCH ×2 (08:46→20:12)
[2019-08-17] MEDS: COD LIVER OIL/ZINC OXIDE OINT 113 GM TUBE TP SCH ×2 (08:47→20:15)
[2019-08-17] MEDS: NEOMY/BACITRA/POLYMYXIN B OINT UD PACKET TP SCH ×2 (08:47→20:15)
[2019-08-17] MEDS: HEPARIN SODIUM,PORCINE 5,000 UNITS/ML VIAL SQ SCH ×2 (08:47→20:15)
[2019-08-17] MEDS: HYDROGEN PEROXIDE 3% 118 ML BOTTLE TP SCH ×2 (09:00→21:01)
[2019-08-17] MEDS: MULTIVIT, IRON, MIN NO. 8, FA TABLET GT SCH (20:13)
[2019-08-17 22:35] VITALS: BP 114/58
[2019-08-18] MEDS: ALBUTEROL SULFATE 2.5 MG/3 ML NEBU NEB SCH ×4 (00:40→19:30)
[2019-08-18] MEDS: PANTOPRAZOLE ORAL SUSPENSION 40 MG SUSPDR.PKT GT SCH ×2 (06:01→17:12)
[2019-08-18] MEDS: ASPIRIN 81 MG TAB.CHEW GT SCH (08:44)
[2019-08-18] MEDS: LOSARTAN POTASSIUM 50 MG TABLET GT SCH ×2 (08:45→20:24)
[2019-08-18] MEDS: METOPROLOL TARTRATE 50 MG TABLET GT SCH ×2 (08:46→20:25)
[2019-08-18] MEDS: ATORVASTATIN 20 MG TABLET GT SCH (08:46)
[2019-08-18] MEDS: ACIDOPHILUS/BULGARICUS CHEW TAB GT SCH ×2 (08:46→20:25)
[2019-08-18] MEDS: COD LIVER OIL/ZINC OXIDE OINT 113 GM TUBE TP SCH ×2 (08:46→20:25)
[2019-08-18] MEDS: NUTRISOURCE FIBER 4 GM PACKET GT SCH (08:46)
[2019-08-18] MEDS: NEOMY/BACITRA/POLYMYXIN B OINT UD PACKET TP SCH ×2 (08:47→20:26)
[2019-08-18] MEDS: HEPARIN SODIUM,PORCINE 5,000 UNITS/ML VIAL SQ SCH ×2 (08:49→20:34)
[2019-08-18] MEDS: HYDROGEN PEROXIDE 3% 118 ML BOTTLE TP SCH ×2 (09:00→21:44)
[2019-08-18 11:34] VITALS: BP 110/60
[2019-08-18 22:07] VITALS: BP 119/56
[2019-08-19] MEDS: ALBUTEROL SULFATE 2.5 MG/3 ML NEBU NEB SCH ×4 (00:56→20:15)
[2019-08-19] MEDS: PANTOPRAZOLE ORAL SUSPENSION 40 MG SUSPDR.PKT GT SCH ×2 (06:02→17:36)
[2019-08-19] MEDS: HYDROGEN PEROXIDE 3% 118 ML BOTTLE TP SCH ×2 (08:58→20:15)
[2019-08-19] MEDS: LOSARTAN POTASSIUM 50 MG TABLET GT SCH ×2 (09:00→20:45)
[2019-08-19] MEDS: ASPIRIN 81 MG TAB.CHEW GT SCH (09:08)
[2019-08-19] MEDS: NUTRISOURCE FIBER 4 GM PACKET GT SCH (09:10)
[2019-08-19] MEDS: METOPROLOL TARTRATE 50 MG TABLET GT SCH ×2 (09:10→20:47)
[2019-08-19] MEDS: ACIDOPHILUS/BULGARICUS CHEW TAB GT SCH ×2 (09:10→20:46)
[2019-08-19] MEDS: COD LIVER OIL/ZINC OXIDE OINT 113 GM TUBE TP SCH ×2 (09:10→20:47)
[2019-08-19] MEDS: NEOMY/BACITRA/POLYMYXIN B OINT UD PACKET TP SCH ×2 (09:10→20:47)
[2019-08-19] MEDS: ATORVASTATIN 20 MG TABLET GT SCH (09:10)
[2019-08-19] MEDS: HEPARIN SODIUM,PORCINE 5,000 UNITS/ML VIAL SQ SCH ×2 (09:13→20:47)
[2019-08-19 11:39] VITALS: BP 107/70
[2019-08-19] MEDS: MULTIVIT, IRON, MIN NO. 8, FA TABLET GT SCH (20:46)
[2019-08-19 22:01] VITALS: BP 138/65
[2019-08-20] MEDS: ALBUTEROL SULFATE 2.5 MG/3 ML NEBU NEB SCH ×4 (01:37→20:07)
[2019-08-20] MEDS: PANTOPRAZOLE ORAL SUSPENSION 40 MG SUSPDR.PKT GT SCH ×2 (05:23→18:03)
[2019-08-20 08:30] VITALS: BP 131/65
[2019-08-20] MEDS: METOPROLOL TARTRATE 50 MG TABLET GT SCH ×2 (09:00→21:00)
[2019-08-20] MEDS: HYDROGEN PEROXIDE 3% 118 ML BOTTLE TP SCH ×2 (09:00→21:23)
[2019-08-20] MEDS: ASPIRIN 81 MG TAB.CHEW GT SCH (09:03)
[2019-08-20] MEDS: ATORVASTATIN 20 MG TABLET GT SCH (09:04)
[2019-08-20] MEDS: ACIDOPHILUS/BULGARICUS CHEW TAB GT SCH ×2 (09:04→21:30)
[2019-08-20] MEDS: LOSARTAN POTASSIUM 50 MG TABLET GT SCH ×2 (09:04→21:00)
[2019-08-20] MEDS: NUTRISOURCE FIBER 4 GM PACKET GT SCH (09:06)
[2019-08-20] MEDS: COD LIVER OIL/ZINC OXIDE OINT 113 GM TUBE TP SCH ×2 (09:07→21:30)
[2019-08-20] MEDS: HEPARIN SODIUM,PORCINE 5,000 UNITS/ML VIAL SQ SCH ×2 (09:07→21:33)
--- NOTE | 2019-08-20 18:16 | NUR ---
SEEN BY DR. APONTE AND ENOCH Reyes AND WITH NNO.
[2019-08-20 20:19] VITALS: BP 109/55
[2019-08-21] MEDS: ALBUTEROL SULFATE 2.5 MG/3 ML NEBU NEB SCH ×4 (01:48→19:23)
[2019-08-21] MEDS: VITAL AF 1.2 1,000 ML LIQUID GT PRN ×3 (01:59→23:58)
[2019-08-21] MEDS: PANTOPRAZOLE ORAL SUSPENSION 40 MG SUSPDR.PKT GT SCH ×2 (05:20→17:40)
[2019-08-21] MEDS: HEPARIN SODIUM,PORCINE 5,000 UNITS/ML VIAL SQ SCH ×2 (09:00→21:14)
[2019-08-21] MEDS: HYDROGEN PEROXIDE 3% 118 ML BOTTLE TP SCH ×2 (09:00→20:38)
[2019-08-21] MEDS: LOSARTAN POTASSIUM 50 MG TABLET GT SCH ×2 (09:00→21:00)
[2019-08-21] MEDS: METOPROLOL TARTRATE 50 MG TABLET GT SCH ×2 (09:00→21:00)
[2019-08-21] MEDS: ASPIRIN 81 MG TAB.CHEW GT SCH (09:53)
[2019-08-21] MEDS: ACIDOPHILUS/BULGARICUS CHEW TAB GT SCH ×2 (09:55→21:16)
[2019-08-21] MEDS: NUTRISOURCE FIBER 4 GM PACKET GT SCH (09:58)
[2019-08-21] MEDS: COD LIVER OIL/ZINC OXIDE OINT 113 GM TUBE TP SCH ×2 (09:58→21:17)
[2019-08-21] MEDS: ATORVASTATIN 20 MG TABLET GT SCH (09:58)
[2019-08-21 11:07] VITALS: BP 94/61
[2019-08-21 20:00] VITALS: BP 113/63
[2019-08-21] MEDS: MULTIVIT, IRON, MIN NO. 8, FA TABLET GT SCH (21:17)
[2019-08-22] MEDS: ALBUTEROL SULFATE 2.5 MG/3 ML NEBU NEB SCH ×4 (00:44→19:50)
[2019-08-22] MEDS: PANTOPRAZOLE ORAL SUSPENSION 40 MG SUSPDR.PKT GT SCH ×2 (05:12→17:37)
[2019-08-22 08:00] VITALS: BP 119/60
[2019-08-22] MEDS: METOPROLOL TARTRATE 50 MG TABLET GT SCH ×2 (08:11→21:00)
[2019-08-22] MEDS: ACIDOPHILUS/BULGARICUS CHEW TAB GT SCH ×2 (08:11→21:15)
[2019-08-22] MEDS: NUTRISOURCE FIBER 4 GM PACKET GT SCH (08:11)
[2019-08-22] MEDS: ATORVASTATIN 20 MG TABLET GT SCH (08:11)
[2019-08-22] MEDS: LOSARTAN POTASSIUM 50 MG TABLET GT SCH ×2 (08:12→21:00)
[2019-08-22] MEDS: HEPARIN SODIUM,PORCINE 5,000 UNITS/ML VIAL SQ SCH ×2 (08:13→21:00)
[2019-08-22] MEDS: COD LIVER OIL/ZINC OXIDE OINT 113 GM TUBE TP SCH ×2 (08:13→21:16)
[2019-08-22] MEDS: ASPIRIN 81 MG TAB.CHEW GT SCH (08:48)
[2019-08-22] MEDS: HYDROGEN PEROXIDE 3% 118 ML BOTTLE TP SCH ×2 (09:18→21:00)
[2019-08-22 20:00] VITALS: BP 117/70
[2019-08-22] MEDS: VITAL AF 1.2 1,000 ML LIQUID GT PRN (23:22)
[2019-08-23] MEDS: ALBUTEROL SULFATE 2.5 MG/3 ML NEBU NEB SCH ×4 (01:08→19:59)
[2019-08-23] MEDS: PANTOPRAZOLE ORAL SUSPENSION 40 MG SUSPDR.PKT GT SCH ×2 (05:35→17:24)
[2019-08-23 08:00] VITALS: BP 117/64
[2019-08-23] MEDS: METOPROLOL TARTRATE 50 MG TABLET GT SCH ×2 (09:00→21:00)
[2019-08-23] MEDS: HYDROGEN PEROXIDE 3% 118 ML BOTTLE TP SCH ×2 (09:00→20:59)
[2019-08-23] MEDS: LOSARTAN POTASSIUM 50 MG TABLET GT SCH ×2 (09:00→21:00)
[2019-08-23] MEDS: ASPIRIN 81 MG TAB.CHEW GT SCH (09:05)
[2019-08-23] MEDS: ATORVASTATIN 20 MG TABLET GT SCH (09:06)
[2019-08-23] MEDS: NUTRISOURCE FIBER 4 GM PACKET GT SCH (09:06)
[2019-08-23] MEDS: ACIDOPHILUS/BULGARICUS CHEW TAB GT SCH ×2 (09:06→21:40)
[2019-08-23] MEDS: COD LIVER OIL/ZINC OXIDE OINT 113 GM TUBE TP SCH ×2 (09:07→21:42)
[2019-08-23] MEDS: HEPARIN SODIUM,PORCINE 5,000 UNITS/ML VIAL SQ SCH ×2 (09:07→21:41)
[2019-08-23 20:00] VITALS: BP 116/66
[2019-08-23] MEDS: MULTIVIT, IRON, MIN NO. 8, FA TABLET GT SCH (21:40)
[2019-08-24] MEDS: ALBUTEROL SULFATE 2.5 MG/3 ML NEBU NEB SCH ×4 (01:25→21:05)
[2019-08-24] MEDS: PANTOPRAZOLE ORAL SUSPENSION 40 MG SUSPDR.PKT GT SCH ×2 (06:17→18:05)
[2019-08-24] MEDS: ASPIRIN 81 MG TAB.CHEW GT SCH (08:00)
[2019-08-24] MEDS: LOSARTAN POTASSIUM 50 MG TABLET GT SCH ×2 (08:01→20:17)
[2019-08-24] MEDS: ATORVASTATIN 20 MG TABLET GT SCH (08:01)
[2019-08-24] MEDS: ACIDOPHILUS/BULGARICUS CHEW TAB GT SCH ×2 (08:01→20:17)
[2019-08-24 08:02] VITALS: BP 123/54
[2019-08-24] MEDS: METOPROLOL TARTRATE 50 MG TABLET GT SCH ×2 (08:04→20:17)
[2019-08-24] MEDS: NUTRISOURCE FIBER 4 GM PACKET GT SCH (08:04)
[2019-08-24] MEDS: HEPARIN SODIUM,PORCINE 5,000 UNITS/ML VIAL SQ SCH ×2 (08:05→20:17)
[2019-08-24] MEDS: COD LIVER OIL/ZINC OXIDE OINT 113 GM TUBE TP SCH ×2 (08:05→20:17)
[2019-08-24] MEDS: HYDROGEN PEROXIDE 3% 118 ML BOTTLE TP SCH ×2 (09:05→21:00)
[2019-08-24] MEDS: VITAL AF 1.2 1,000 ML LIQUID GT PRN (14:24)
--- NOTE | 2019-08-24 19:06 | NUR ---
This SW spoke with patient's daughter Marina [phone] and informed her that per CDC and [facility] decision to minimize the risk of subacute residents becoming sick with the COVID-19 virus, visitation to [facility] will be suspended, effective immediately, and until further notice. Marina expressed understanding.
[2019-08-24 20:00] VITALS: BP 105/53
[2019-08-25] MEDS: ALBUTEROL SULFATE 2.5 MG/3 ML NEBU NEB SCH ×4 (01:53→19:45)
[2019-08-25] MEDS: PANTOPRAZOLE ORAL SUSPENSION 40 MG SUSPDR.PKT GT SCH ×2 (05:38→17:19)
[2019-08-25 07:44] VITALS: BP 116/60
--- NOTE | 2019-08-25 08:10 | NUR ---
Pt received awake ,no respiratory distress ,no increase secretions noted o2 sat 97%,afebrile temp 97.5,no discomfort noted.
[2019-08-25] MEDS: LOSARTAN POTASSIUM 50 MG TABLET GT SCH ×2 (08:54→20:15)
[2019-08-25] MEDS: ASPIRIN 81 MG TAB.CHEW GT SCH (08:54)
[2019-08-25] MEDS: METOPROLOL TARTRATE 50 MG TABLET GT SCH ×2 (08:55→20:15)
[2019-08-25] MEDS: HEPARIN SODIUM,PORCINE 5,000 UNITS/ML VIAL SQ SCH ×2 (08:55→20:10)
[2019-08-25] MEDS: NUTRISOURCE FIBER 4 GM PACKET GT SCH (08:55)
[2019-08-25] MEDS: ATORVASTATIN 20 MG TABLET GT SCH (08:55)
[2019-08-25] MEDS: ACIDOPHILUS/BULGARICUS CHEW TAB GT SCH ×2 (08:55→20:15)
[2019-08-25] MEDS: COD LIVER OIL/ZINC OXIDE OINT 113 GM TUBE TP SCH ×2 (08:56→20:15)
[2019-08-25] MEDS: HYDROGEN PEROXIDE 3% 118 ML BOTTLE TP SCH ×2 (09:34→21:00)
[2019-08-25] MEDS: VITAL AF 1.2 1,000 ML LIQUID GT PRN (11:20)
[2019-08-25] MEDS: MULTIVIT, IRON, MIN NO. 8, FA TABLET GT SCH (20:15)
[2019-08-25 20:32] VITALS: BP 121/58
[2019-08-26] MEDS: ALBUTEROL SULFATE 2.5 MG/3 ML NEBU NEB SCH ×4 (01:19→20:20)
--- NOTE | 2019-08-26 02:16 | NUR ---
Patient is sleeping , temperature is 97.4, trach is intact and patent, suctioned with moderate pale yellow secretions. 02 satis 96%, no respiratory distress noted, call light within reach.
[2019-08-26] MEDS: PANTOPRAZOLE ORAL SUSPENSION 40 MG SUSPDR.PKT GT SCH ×2 (05:43→17:47)
[2019-08-26 08:02] VITALS: BP 119/54
[2019-08-26] MEDS: METOPROLOL TARTRATE 50 MG TABLET GT SCH ×2 (09:00→20:16)
[2019-08-26] MEDS: LOSARTAN POTASSIUM 50 MG TABLET GT SCH ×2 (09:00→20:16)
[2019-08-26] MEDS: ATORVASTATIN 20 MG TABLET GT SCH (09:05)
[2019-08-26] MEDS: NUTRISOURCE FIBER 4 GM PACKET GT SCH (09:05)
[2019-08-26] MEDS: ASPIRIN 81 MG TAB.CHEW GT SCH (09:05)
[2019-08-26] MEDS: ACIDOPHILUS/BULGARICUS CHEW TAB GT SCH ×2 (09:05→20:16)
[2019-08-26] MEDS: HEPARIN SODIUM,PORCINE 5,000 UNITS/ML VIAL SQ SCH ×2 (09:06→20:17)
[2019-08-26] MEDS: COD LIVER OIL/ZINC OXIDE OINT 113 GM TUBE TP SCH ×2 (09:06→20:17)
[2019-08-26] MEDS: HYDROGEN PEROXIDE 3% 118 ML BOTTLE TP SCH ×2 (09:07→21:40)
[2019-08-26] MEDS: VITAL AF 1.2 1,000 ML LIQUID GT PRN (09:38)
--- NOTE | 2019-08-26 17:31 | NUR ---
Pt awake,no respiratory distress noted,trach in place to p-mist ,afebrile temp 97.7,o2 sat 95%,suctioned as needed,enteral feeding tolerated well,no gastric residual noted.
[2019-08-26 20:20] VITALS: BP 124/56
--- NOTE | 2019-08-26 22:20 | NUR ---
Afebrile, temperature is 97.6 Fahrenheit, trach is intact and patent, 02 sat is 99%, no respiratory distress noted, kept clean and comfortable.
[2019-08-27] MEDS: ALBUTEROL SULFATE 2.5 MG/3 ML NEBU NEB SCH ×4 (01:40→19:40)
[2019-08-27] MEDS: PANTOPRAZOLE ORAL SUSPENSION 40 MG SUSPDR.PKT GT SCH ×2 (05:29→18:20)
[2019-08-27 08:00] VITALS: BP 114/57
[2019-08-27] MEDS: ASPIRIN 81 MG TAB.CHEW GT SCH (08:04)
[2019-08-27] MEDS: LOSARTAN POTASSIUM 50 MG TABLET GT SCH ×2 (08:05→20:18)
[2019-08-27] MEDS: ATORVASTATIN 20 MG TABLET GT SCH (08:06)
[2019-08-27] MEDS: ACIDOPHILUS/BULGARICUS CHEW TAB GT SCH ×2 (08:06→20:20)
[2019-08-27] MEDS: NUTRISOURCE FIBER 4 GM PACKET GT SCH (08:07)
[2019-08-27] MEDS: METOPROLOL TARTRATE 50 MG TABLET GT SCH ×2 (08:07→20:20)
[2019-08-27] MEDS: COD LIVER OIL/ZINC OXIDE OINT 113 GM TUBE TP SCH ×2 (08:08→20:25)
[2019-08-27] MEDS: HEPARIN SODIUM,PORCINE 5,000 UNITS/ML VIAL SQ SCH ×2 (08:11→21:00)
[2019-08-27] MEDS: HYDROGEN PEROXIDE 3% 118 ML BOTTLE TP SCH ×2 (09:00→20:45)
[2019-08-27 09:21] VITALS: BP 114/47
[2019-08-27] MEDS: VITAL AF 1.2 1,000 ML LIQUID GT PRN (11:27)
--- NOTE | 2019-08-27 14:41 | NUR ---
Patient stable, no acute respiratory distress noted, repositioned q2hrs for comfort.
[2019-08-27 20:10] VITALS: BP 119/48
[2019-08-27] MEDS: MULTIVIT, IRON, MIN NO. 8, FA TABLET GT SCH (20:21)
--- NOTE | 2019-08-27 21:44 | NUR ---
Temperature is 98.3, no SOB, no signs of any respiratory distress noted, 02 sat 97% on 28%fi02. Patient is stable, turned and repositioned, kept clean and comfortable.
[2019-08-28] MEDS: ALBUTEROL SULFATE 2.5 MG/3 ML NEBU NEB SCH ×4 (01:22→19:17)
[2019-08-28] MEDS: PANTOPRAZOLE ORAL SUSPENSION 40 MG SUSPDR.PKT GT SCH ×2 (05:53→17:31)
[2019-08-28] MEDS: VITAL AF 1.2 1,000 ML LIQUID GT PRN (05:54)
[2019-08-28 08:00] VITALS: BP 124/54
[2019-08-28 08:09] LABS: BASOPHILS % (AUTO) 0.7 % (0.0-2.0); EOSINOPHILS # (AUTO) 0.4 K/uL (0.0-0.7); EOSINOPHILS % (AUTO) 6.3 % (0.0-7.0); HEMATOCRIT 37.1 % (36.7-47.1); HEMOGLOBIN 12.9 g/dL (12.5-16.3); LYMPHOCYTES # (AUTO) 1.6 K/uL (20.0-40.0); LYMPHOCYTES % (AUTO) 26.6 % (20.5-51.5); MEAN CORPUSCULAR HEMOGLOBIN 33.3 uug (23.8-33.4); MEAN CORPUSCULAR HGB CONC 35 g/dL (32.5-36.3); MEAN CORPUSCULAR VOLUME 95.8 fL (73.0-96.2); MONOCYTES # (AUTO) 0.5 K/uL (2.0-10.0); MONOCYTES % (AUTO) 8.4 % (0.0-11.0); NEUTROPHILS # (AUTO) 3.5 K/uL (1.8-8.9); PLATELET COUNT (AUTO) 264 K/uL (152-348); RED BLOOD CELL COUNT(AUTO) 3.87 MIL/uL (4.06-5.63); WHITE BLOOD COUNT (AUTO) 6.1 K/uL (3.6-10.2)
[2019-08-28 08:23] LABS: CREATININE 0.7 mg/dL (0.6-1.3); PHOSPHOROUS 3.6 mg/dL (2.5-4.9); POTASSIUM 4.2 mmol/L (3.5-5.1)
[2019-08-28] MEDS: ASPIRIN 81 MG TAB.CHEW GT SCH (08:48)
[2019-08-28] MEDS: LOSARTAN POTASSIUM 50 MG TABLET GT SCH ×2 (08:48→20:16)
[2019-08-28] MEDS: ATORVASTATIN 20 MG TABLET GT SCH (08:48)
[2019-08-28] MEDS: METOPROLOL TARTRATE 50 MG TABLET GT SCH ×2 (08:48→20:26)
[2019-08-28] MEDS: ACIDOPHILUS/BULGARICUS CHEW TAB GT SCH ×2 (08:48→20:25)
[2019-08-28] MEDS: COD LIVER OIL/ZINC OXIDE OINT 113 GM TUBE TP SCH ×2 (08:49→20:27)
[2019-08-28] MEDS: NUTRISOURCE FIBER 4 GM PACKET GT SCH (08:49)
[2019-08-28] MEDS: HEPARIN SODIUM,PORCINE 5,000 UNITS/ML VIAL SQ SCH ×2 (08:51→20:15)
[2019-08-28] MEDS: HYDROGEN PEROXIDE 3% 118 ML BOTTLE TP SCH ×2 (09:59→21:41)
--- NOTE | 2019-08-28 12:44 | NUR ---
Seen and examined by Dr Sanchez aware of the abnormal labs results with new orders noted.
--- NOTE | 2019-08-28 18:30 | NUR ---
No acute respiratory distress ,no increase secretions,afebrile ,temperature 98 .
[2019-08-28 21:37] VITALS: BP 121/70
[2019-08-29] MEDS: ALBUTEROL SULFATE 2.5 MG/3 ML NEBU NEB SCH ×4 (01:09→20:30)
[2019-08-29] MEDS: PANTOPRAZOLE ORAL SUSPENSION 40 MG SUSPDR.PKT GT SCH ×2 (06:00→17:14)
--- NOTE | 2019-08-29 07:30 | NUR ---
PT was received in bed and asleep. Vitals WNL. No respiratory distress noted. Safety precautions were given. Call light within reach. Will continue to monitor.
[2019-08-29] MEDS: HYDROGEN PEROXIDE 3% 118 ML BOTTLE TP SCH ×2 (07:55→21:00)
[2019-08-29] MEDS: ASPIRIN 81 MG TAB.CHEW GT SCH (08:38)
[2019-08-29] MEDS: LOSARTAN POTASSIUM 50 MG TABLET GT SCH ×2 (08:38→20:10)
[2019-08-29] MEDS: ATORVASTATIN 20 MG TABLET GT SCH (08:38)
[2019-08-29] MEDS: ACIDOPHILUS/BULGARICUS CHEW TAB GT SCH ×2 (08:38→20:10)
[2019-08-29] MEDS: NUTRISOURCE FIBER 4 GM PACKET GT SCH (08:39)
[2019-08-29] MEDS: COD LIVER OIL/ZINC OXIDE OINT 113 GM TUBE TP SCH ×2 (08:39→20:37)
[2019-08-29] MEDS: METOPROLOL TARTRATE 50 MG TABLET GT SCH ×2 (08:39→20:33)
[2019-08-29] MEDS: HEPARIN SODIUM,PORCINE 5,000 UNITS/ML VIAL SQ SCH ×2 (08:41→20:35)
[2019-08-29 11:25] VITALS: BP 121/68
--- NOTE | 2019-08-29 18:35 | NUR ---
In stable condition,no respiratory distress,trach connected to p mist,suctioned as needed.afebrile temp 98.
[2019-08-29] MEDS: MULTIVIT, IRON, MIN NO. 8, FA TABLET GT SCH (20:34)
[2019-08-29 20:47] VITALS: BP 113/56
[2019-08-30] MEDS: ALBUTEROL SULFATE 2.5 MG/3 ML NEBU NEB SCH ×3 (01:36→19:55)
[2019-08-30] MEDS: VITAL AF 1.2 1,000 ML LIQUID GT PRN (05:21)
[2019-08-30] MEDS: PANTOPRAZOLE ORAL SUSPENSION 40 MG SUSPDR.PKT GT SCH ×2 (05:21→18:06)
[2019-08-30] MEDS: ASPIRIN 81 MG TAB.CHEW GT SCH (08:50)
[2019-08-30] MEDS: METOPROLOL TARTRATE 50 MG TABLET GT SCH ×2 (08:51→20:20)
[2019-08-30] MEDS: ACIDOPHILUS/BULGARICUS CHEW TAB GT SCH ×2 (08:51→20:19)
[2019-08-30] MEDS: ATORVASTATIN 20 MG TABLET GT SCH (08:51)
[2019-08-30] MEDS: LOSARTAN POTASSIUM 50 MG TABLET GT SCH ×2 (08:51→20:16)
[2019-08-30] MEDS: NUTRISOURCE FIBER 4 GM PACKET GT SCH (08:51)
[2019-08-30] MEDS: HEPARIN SODIUM,PORCINE 5,000 UNITS/ML VIAL SQ SCH ×2 (08:52→20:21)
[2019-08-30] MEDS: COD LIVER OIL/ZINC OXIDE OINT 113 GM TUBE TP SCH ×2 (08:52→20:21)
[2019-08-30] MEDS: HYDROGEN PEROXIDE 3% 118 ML BOTTLE TP SCH ×2 (09:36→21:00)
[2019-08-30 11:36] VITALS: BP 127/74
--- NOTE | 2019-08-30 18:30 | NUR ---
SEEN BY DR. MATT FARLEY.
[2019-08-30 20:50] VITALS: BP 121/72
[2019-08-31] MEDS: ALBUTEROL SULFATE 2.5 MG/3 ML NEBU NEB SCH ×4 (01:25→19:28)
[2019-08-31] MEDS: VITAL AF 1.2 1,000 ML LIQUID GT PRN (03:00)
[2019-08-31] MEDS: PANTOPRAZOLE ORAL SUSPENSION 40 MG SUSPDR.PKT GT SCH ×2 (05:53→17:44)
[2019-08-31 07:58] LABS: BASOPHILS % (AUTO) 0.3 % (0.0-2.0); EOSINOPHILS # (AUTO) 0.4 K/uL (0.0-0.7); EOSINOPHILS % (AUTO) 8.1 % (0.0-7.0); HEMATOCRIT 37.5 % (36.7-47.1); HEMOGLOBIN 12.9 g/dL (12.5-16.3); LYMPHOCYTES # (AUTO) 1.7 K/uL (20.0-40.0); MEAN CORPUSCULAR HEMOGLOBIN 32.8 uug (23.8-33.4); MEAN CORPUSCULAR HGB CONC 35 g/dL (32.5-36.3); MEAN CORPUSCULAR VOLUME 95.3 fL (73.0-96.2); MONOCYTES # (AUTO) 0.4 K/uL (2.0-10.0); MONOCYTES % (AUTO) 8.6 % (0.0-11.0); NEUTROPHILS # (AUTO) 2.4 K/uL (1.8-8.9); PLATELET COUNT (AUTO) 276 K/uL (152-348); RED BLOOD CELL COUNT(AUTO) 3.93 MIL/uL (4.06-5.63)
[2019-08-31 08:10] LABS: CREATININE 0.7 mg/dL (0.6-1.3); PHOSPHOROUS 3.9 mg/dL (2.5-4.9); POTASSIUM 4.4 mmol/L (3.5-5.1)
[2019-08-31] MEDS: ASPIRIN 81 MG TAB.CHEW GT SCH (08:28)
[2019-08-31] MEDS: LOSARTAN POTASSIUM 50 MG TABLET GT SCH ×2 (08:28→21:22)
[2019-08-31] MEDS: ACIDOPHILUS/BULGARICUS CHEW TAB GT SCH ×2 (08:28→21:20)
[2019-08-31] MEDS: ATORVASTATIN 20 MG TABLET GT SCH (08:29)
[2019-08-31] MEDS: METOPROLOL TARTRATE 50 MG TABLET GT SCH ×2 (08:30→21:21)
[2019-08-31] MEDS: NUTRISOURCE FIBER 4 GM PACKET GT SCH (08:38)
[2019-08-31] MEDS: HEPARIN SODIUM,PORCINE 5,000 UNITS/ML VIAL SQ SCH ×2 (08:39→21:31)
[2019-08-31] MEDS: COD LIVER OIL/ZINC OXIDE OINT 113 GM TUBE TP SCH ×2 (08:40→21:22)
[2019-08-31] MEDS: HYDROGEN PEROXIDE 3% 118 ML BOTTLE TP SCH ×2 (09:06→21:16)
[2019-08-31 10:46] VITALS: BP 92/47
[2019-08-31 20:48] VITALS: BP 104/48
[2019-08-31] MEDS: MULTIVIT, IRON, MIN NO. 8, FA TABLET GT SCH (21:21)
[2019-08-31 21:41] VITALS: BP 121/61
[2019-09-01] MEDS: ALBUTEROL SULFATE 2.5 MG/3 ML NEBU NEB SCH ×4 (01:21→19:05)
[2019-09-01] MEDS: VITAL AF 1.2 1,000 ML LIQUID GT PRN ×2 (03:56→21:47)
[2019-09-01] MEDS: PANTOPRAZOLE ORAL SUSPENSION 40 MG SUSPDR.PKT GT SCH ×2 (05:28→17:42)
[2019-09-01 08:00] VITALS: BP 100/45
[2019-09-01] MEDS: LOSARTAN POTASSIUM 50 MG TABLET GT SCH ×2 (09:00→20:45)
[2019-09-01] MEDS: METOPROLOL TARTRATE 50 MG TABLET GT SCH ×2 (09:00→20:45)
[2019-09-01] MEDS: ACIDOPHILUS/BULGARICUS CHEW TAB GT SCH ×2 (09:15→20:45)
[2019-09-01] MEDS: ASPIRIN 81 MG TAB.CHEW GT SCH (09:15)
[2019-09-01] MEDS: ATORVASTATIN 20 MG TABLET GT SCH (09:17)
[2019-09-01] MEDS: NUTRISOURCE FIBER 4 GM PACKET GT SCH (09:18)
[2019-09-01] MEDS: COD LIVER OIL/ZINC OXIDE OINT 113 GM TUBE TP SCH ×2 (09:19→20:46)
[2019-09-01] MEDS: HEPARIN SODIUM,PORCINE 5,000 UNITS/ML VIAL SQ SCH ×2 (09:28→20:44)
[2019-09-01] MEDS: HYDROGEN PEROXIDE 3% 118 ML BOTTLE TP SCH ×2 (09:35→21:15)
[2019-09-01 20:40] VITALS: BP 116/46
[2019-09-02] MEDS: ALBUTEROL SULFATE 2.5 MG/3 ML NEBU NEB SCH ×4 (01:03→19:46)
[2019-09-02] MEDS: PANTOPRAZOLE ORAL SUSPENSION 40 MG SUSPDR.PKT GT SCH ×2 (05:25→17:55)
[2019-09-02] MEDS: LOSARTAN POTASSIUM 50 MG TABLET GT SCH ×2 (08:57→20:16)
[2019-09-02] MEDS: ASPIRIN 81 MG TAB.CHEW GT SCH (08:57)
[2019-09-02] MEDS: NUTRISOURCE FIBER 4 GM PACKET GT SCH (08:58)
[2019-09-02] MEDS: ACIDOPHILUS/BULGARICUS CHEW TAB GT SCH ×2 (08:58→20:17)
[2019-09-02] MEDS: ATORVASTATIN 20 MG TABLET GT SCH (08:58)
[2019-09-02] MEDS: METOPROLOL TARTRATE 50 MG TABLET GT SCH ×2 (08:58→20:17)
[2019-09-02] MEDS: HEPARIN SODIUM,PORCINE 5,000 UNITS/ML VIAL SQ SCH ×2 (08:59→20:17)
[2019-09-02] MEDS: COD LIVER OIL/ZINC OXIDE OINT 113 GM TUBE TP SCH ×2 (08:59→20:17)
[2019-09-02] MEDS: HYDROGEN PEROXIDE 3% 118 ML BOTTLE TP SCH ×2 (09:56→21:39)
[2019-09-02 11:43] VITALS: BP 91/60
[2019-09-02] MEDS: VITAL AF 1.2 1,000 ML LIQUID GT PRN (17:54)
[2019-09-02] MEDS: MULTIVIT, IRON, MIN NO. 8, FA TABLET GT SCH (20:17)
[2019-09-02 21:05] VITALS: BP 130/48
[2019-09-03] MEDS: ALBUTEROL SULFATE 2.5 MG/3 ML NEBU NEB SCH ×4 (00:47→20:00)
[2019-09-03] MEDS: PANTOPRAZOLE ORAL SUSPENSION 40 MG SUSPDR.PKT GT SCH ×2 (05:26→17:08)
[2019-09-03 08:30] VITALS: BP 95/55
[2019-09-03] MEDS: METOPROLOL TARTRATE 50 MG TABLET GT SCH ×2 (09:00→20:14)
[2019-09-03] MEDS: LOSARTAN POTASSIUM 50 MG TABLET GT SCH ×2 (09:00→11:30)
[2019-09-03] MEDS: ASPIRIN 81 MG TAB.CHEW GT SCH (09:03)
[2019-09-03] MEDS: ATORVASTATIN 20 MG TABLET GT SCH (09:04)
[2019-09-03] MEDS: ACIDOPHILUS/BULGARICUS CHEW TAB GT SCH ×2 (09:04→20:14)
[2019-09-03] MEDS: NUTRISOURCE FIBER 4 GM PACKET GT SCH (09:04)
[2019-09-03] MEDS: COD LIVER OIL/ZINC OXIDE OINT 113 GM TUBE TP SCH ×2 (09:05→20:15)
[2019-09-03] MEDS: HEPARIN SODIUM,PORCINE 5,000 UNITS/ML VIAL SQ SCH ×2 (09:05→20:16)
[2019-09-03] MEDS: HYDROGEN PEROXIDE 3% 118 ML BOTTLE TP SCH ×2 (09:34→20:15)
--- NOTE | 2019-09-03 11:00 | NUR ---
SEEN AND EXAMINED BY DR APONTE AND WITH NNO.
--- NOTE | 2019-09-03 15:35 | NUR ---
URINE SAMPLE COLLECTED AND SENT TO LAB.
[2019-09-03 20:15] VITALS: BP 119/52
[2019-09-04] MEDS: ALBUTEROL SULFATE 2.5 MG/3 ML NEBU NEB SCH ×4 (01:05→20:23)
[2019-09-04] MEDS: PANTOPRAZOLE ORAL SUSPENSION 40 MG SUSPDR.PKT GT SCH ×2 (05:25→17:30)
[2019-09-04 06:54] LABS: CREATININE 0.6 mg/dL (0.6-1.3); MAGNESIUM 1.9 mg/dL (1.8-2.4); PHOSPHOROUS 3.1 mg/dL (2.5-4.9); POTASSIUM 4.2 mmol/L (3.5-5.1)
[2019-09-04 07:01] LABS: THYROID STIMULATING HORMONE 1.263 mIU/mL (0.358-3.740)
[2019-09-04] MEDS: ATORVASTATIN 20 MG TABLET GT SCH (08:42)
[2019-09-04] MEDS: ACIDOPHILUS/BULGARICUS CHEW TAB GT SCH ×2 (08:42→21:44)
[2019-09-04] MEDS: METOPROLOL TARTRATE 50 MG TABLET GT SCH ×2 (08:42→21:46)
[2019-09-04] MEDS: LOSARTAN POTASSIUM 50 MG TABLET GT SCH (08:42)
[2019-09-04] MEDS: HEPARIN SODIUM,PORCINE 5,000 UNITS/ML VIAL SQ SCH ×2 (08:43→21:53)
[2019-09-04] MEDS: NUTRISOURCE FIBER 4 GM PACKET GT SCH (08:43)
[2019-09-04] MEDS: HYDROGEN PEROXIDE 3% 118 ML BOTTLE TP SCH ×2 (08:43→21:05)
[2019-09-04] MEDS: COD LIVER OIL/ZINC OXIDE OINT 113 GM TUBE TP SCH ×2 (08:43→21:49)
[2019-09-04] MEDS: ASPIRIN 81 MG TAB.CHEW GT SCH (08:53)
[2019-09-04 09:24] VITALS: BP 113/63
--- NOTE | 2019-09-04 15:22 | NUR ---
Pharmacy Update from Today's 09/04/19 IDT meeting VS: Temp 98 BP 113/63 HR 70 LABS: (from 09/04/19) Wbc 5 H/H 12.9/37.5 Plt 276 Na 135 K 4.2 Cl 101 CO2 28 BUN/SCr 19/0.6 BS 117 Ca 8.8 Phos 3.1 Mg 1.9 MEDICATION USE REVIEWED: > Pt not on any anti-psych medications or anti-seizure medications > Pt on heparin 5000units q12hr. Last plt 264, dosing appropriate for renal fxn. No bleeding noted > Pt on BP meds with hold parameters, reasonably controlled, last BP 113/63 Cozaar 50mg daily (hold SBP <120), Lopressor 50mg q12hr (hold SBP <110 or HR <60) Note: MD (DF) does not want to d/c or change current BP medications d/t patient's CAD and PMH of intraventricular hemorrhage/embolism despite episodes of low BP. Patient's BP is well controlled with hold parameters at this time. >PRN MED USAGE (Jul) Tylenol for pain used x 0 Tylenol for temp used x 0 Artificial tears used x 0 NEW ORDERS NOTED: > Cozaar 50mg q12hr decreased to daily frequency per MD 09/02 Patient reviewed and discussed in depth with medication updates noted. Rx noted change d/t pt's well controlled BP, many times BP meds are held. Recent change per MD likely to reduce medication burden for nurses and pt. No further recs per rx as pt remains stable at this time. Will continue to monitor
--- NOTE | 2019-09-04 15:44 | NUR ---
INTERDISCIPLINARY PLAN OF CARE CONFERENCE was held today. Patient's family was unable to attend the meeting. Dr. Leary and the Interdisciplinary Team reviewed the current plan of care in detail. RN reported on patient's medical condition and results of recent labs. See RN IDT conference notes. No major changes in condition were reported. Pharmacy reported on a change in one of patient's medications. See all disciplines IDT notes and physician's progress notes for additional details.
[2019-09-04 20:00] VITALS: BP 121/67
[2019-09-04] MEDS: MULTIVIT, IRON, MIN NO. 8, FA TABLET GT SCH (21:47)
[2019-09-05] MEDS: ALBUTEROL SULFATE 2.5 MG/3 ML NEBU NEB SCH ×4 (02:16→19:21)
[2019-09-05] MEDS: PANTOPRAZOLE ORAL SUSPENSION 40 MG SUSPDR.PKT GT SCH ×2 (06:06→17:51)
[2019-09-05 08:00] VITALS: BP 120/63
[2019-09-05] MEDS: ASPIRIN 81 MG TAB.CHEW GT SCH (08:02)
[2019-09-05] MEDS: LOSARTAN POTASSIUM 50 MG TABLET GT SCH (08:03)
[2019-09-05] MEDS: ACIDOPHILUS/BULGARICUS CHEW TAB GT SCH ×2 (08:03→21:42)
[2019-09-05] MEDS: ATORVASTATIN 20 MG TABLET GT SCH (08:03)
[2019-09-05] MEDS: METOPROLOL TARTRATE 50 MG TABLET GT SCH ×2 (08:04→21:00)
[2019-09-05] MEDS: COD LIVER OIL/ZINC OXIDE OINT 113 GM TUBE TP SCH ×2 (08:05→21:44)
[2019-09-05] MEDS: NUTRISOURCE FIBER 4 GM PACKET GT SCH (08:05)
[2019-09-05] MEDS: HEPARIN SODIUM,PORCINE 5,000 UNITS/ML VIAL SQ SCH ×2 (08:13→21:44)
[2019-09-05] MEDS: HYDROGEN PEROXIDE 3% 118 ML BOTTLE TP SCH ×2 (09:50→19:21)
--- NOTE | 2019-09-05 16:08 | NUR ---
Seen and examined by Dr Flores ,no new orders noted.
[2019-09-05 20:00] VITALS: BP 113/64
[2019-09-06] MEDS: ALBUTEROL SULFATE 2.5 MG/3 ML NEBU NEB SCH ×4 (00:40→19:39)
[2019-09-06] MEDS: PANTOPRAZOLE ORAL SUSPENSION 40 MG SUSPDR.PKT GT SCH ×2 (05:54→17:04)
[2019-09-06 08:00] VITALS: BP 124/60
[2019-09-06] MEDS: LOSARTAN POTASSIUM 50 MG TABLET GT SCH (08:29)
[2019-09-06] MEDS: NUTRISOURCE FIBER 4 GM PACKET GT SCH (08:29)
[2019-09-06] MEDS: ATORVASTATIN 20 MG TABLET GT SCH (08:29)
[2019-09-06] MEDS: ACIDOPHILUS/BULGARICUS CHEW TAB GT SCH ×2 (08:29→20:14)
[2019-09-06] MEDS: COD LIVER OIL/ZINC OXIDE OINT 113 GM TUBE TP SCH ×2 (08:29→20:29)
[2019-09-06] MEDS: METOPROLOL TARTRATE 50 MG TABLET GT SCH ×2 (08:29→20:15)
[2019-09-06] MEDS: ASPIRIN 81 MG TAB.CHEW GT SCH (08:29)
[2019-09-06] MEDS: HEPARIN SODIUM,PORCINE 5,000 UNITS/ML VIAL SQ SCH ×2 (08:30→20:17)
[2019-09-06] MEDS: HYDROGEN PEROXIDE 3% 118 ML BOTTLE TP SCH ×2 (09:00→21:30)
[2019-09-06] MEDS: VITAL AF 1.2 1,000 ML LIQUID GT PRN (10:41)
--- NOTE | 2019-09-06 14:54 | NUR ---
SW called patient's daughter Marina [phone] to check in on how she and the family were doing during the current pandemic and if they had any questions/concerns pertaining to the patient since family has not been able to visit the patient due to visitation restrictions. Marina stated she and the family were doing well, and have been in regular contact with the nurses to check on the patient. Marina expressed not having any concerns at this time and stated "I know my dad is in safe hands and I'm glad the facility decided to restrict all visitors....they are in the safest place right now". SW thanked Marina for her kind words. SW reminded Marina that the family has the option to Facetime/Skype with the patient, and Marina stated that she would be doing that this weekend. GUTIERREZ explained that Marina would need to call the nurse's station and coordinate a time with the patient's nurse, after which the nurse will contact Marina through the facility assigned device. Marina expressed understanding and agreement, and thanked this SW for checking in.
[2019-09-06 20:00] VITALS: BP 115/59
[2019-09-06] MEDS: MULTIVIT, IRON, MIN NO. 8, FA TABLET GT SCH (20:16)
[2019-09-07] MEDS: ALBUTEROL SULFATE 2.5 MG/3 ML NEBU NEB SCH ×4 (01:04→19:58)
[2019-09-07] MEDS: VITAL AF 1.2 1,000 ML LIQUID GT PRN (05:14)
[2019-09-07] MEDS: PANTOPRAZOLE ORAL SUSPENSION 40 MG SUSPDR.PKT GT SCH ×2 (06:10→17:19)
[2019-09-07 08:02] VITALS: BP 118/52
[2019-09-07] MEDS: ASPIRIN 81 MG TAB.CHEW GT SCH (08:26)
[2019-09-07] MEDS: LOSARTAN POTASSIUM 50 MG TABLET GT SCH (08:27)
[2019-09-07] MEDS: ACIDOPHILUS/BULGARICUS CHEW TAB GT SCH ×2 (08:27→20:25)
[2019-09-07] MEDS: NUTRISOURCE FIBER 4 GM PACKET GT SCH (08:28)
[2019-09-07] MEDS: ATORVASTATIN 20 MG TABLET GT SCH (08:28)
[2019-09-07] MEDS: METOPROLOL TARTRATE 50 MG TABLET GT SCH ×2 (08:28→20:31)
[2019-09-07] MEDS: COD LIVER OIL/ZINC OXIDE OINT 113 GM TUBE TP SCH ×2 (08:29→20:31)
[2019-09-07] MEDS: HEPARIN SODIUM,PORCINE 5,000 UNITS/ML VIAL SQ SCH ×2 (08:29→20:26)
[2019-09-07] MEDS: HYDROGEN PEROXIDE 3% 118 ML BOTTLE TP SCH ×2 (09:00→21:07)
--- NOTE | 2019-09-07 16:16 | NUR ---
This and Subacute State Archivist Talat Castillo provided an update to patient's son Reji, daughter Marina, and [id number] Gin via email that per advisement from [facility], [facility], and CDC, visitation restrictions will continue to remain in place for all superintendent container terminal care facilities in order to protect the health and safety of residents and staff. Therefore [facility] will continue to restrict all visitations, until further notice.
[2019-09-07 21:29] VITALS: BP 119/60
[2019-09-08] MEDS: ALBUTEROL SULFATE 2.5 MG/3 ML NEBU NEB SCH ×4 (01:09→18:58)
[2019-09-08] MEDS: VITAL AF 1.2 1,000 ML LIQUID GT PRN (02:27)
[2019-09-08] MEDS: PANTOPRAZOLE ORAL SUSPENSION 40 MG SUSPDR.PKT GT SCH ×2 (05:54→17:26)
[2019-09-08 08:02] VITALS: BP 108/49
[2019-09-08] MEDS: HYDROGEN PEROXIDE 3% 118 ML BOTTLE TP SCH ×2 (08:30→18:58)
[2019-09-08] MEDS: LOSARTAN POTASSIUM 50 MG TABLET GT SCH (09:00)
[2019-09-08] MEDS: METOPROLOL TARTRATE 50 MG TABLET GT SCH ×2 (09:00→21:00)
[2019-09-08] MEDS: ASPIRIN 81 MG TAB.CHEW GT SCH (09:35)
[2019-09-08] MEDS: ATORVASTATIN 20 MG TABLET GT SCH (09:37)
[2019-09-08] MEDS: ACIDOPHILUS/BULGARICUS CHEW TAB GT SCH ×2 (09:37→21:46)
[2019-09-08] MEDS: NUTRISOURCE FIBER 4 GM PACKET GT SCH (09:38)
[2019-09-08] MEDS: HEPARIN SODIUM,PORCINE 5,000 UNITS/ML VIAL SQ SCH ×2 (09:53→21:53)
[2019-09-08] MEDS: COD LIVER OIL/ZINC OXIDE OINT 113 GM TUBE TP SCH ×2 (09:53→21:49)
--- NOTE | 2019-09-08 10:00 | NUR ---
Seen and examined by Dr Flores ,no new orders noted.
[2019-09-08 21:46] VITALS: BP 133/61
[2019-09-08] MEDS: MULTIVIT, IRON, MIN NO. 8, FA TABLET GT SCH (21:49)
[2019-09-09] MEDS: ALBUTEROL SULFATE 2.5 MG/3 ML NEBU NEB SCH ×4 (00:36→20:31)
[2019-09-09] MEDS: PANTOPRAZOLE ORAL SUSPENSION 40 MG SUSPDR.PKT GT SCH ×2 (05:11→17:06)
[2019-09-09 08:02] VITALS: BP 133/54
[2019-09-09] MEDS: ACIDOPHILUS/BULGARICUS CHEW TAB GT SCH ×2 (08:54→21:04)
[2019-09-09] MEDS: LOSARTAN POTASSIUM 50 MG TABLET GT SCH (08:54)
[2019-09-09] MEDS: ASPIRIN 81 MG TAB.CHEW GT SCH (08:54)
[2019-09-09] MEDS: ATORVASTATIN 20 MG TABLET GT SCH (08:56)
[2019-09-09] MEDS: METOPROLOL TARTRATE 50 MG TABLET GT SCH ×2 (08:56→21:00)
[2019-09-09] MEDS: NUTRISOURCE FIBER 4 GM PACKET GT SCH (08:57)
[2019-09-09] MEDS: HEPARIN SODIUM,PORCINE 5,000 UNITS/ML VIAL SQ SCH ×2 (08:57→21:00)
[2019-09-09] MEDS: COD LIVER OIL/ZINC OXIDE OINT 113 GM TUBE TP SCH ×2 (08:57→21:05)
[2019-09-09] MEDS: HYDROGEN PEROXIDE 3% 118 ML BOTTLE TP SCH ×2 (09:00→21:53)
[2019-09-09 22:11] VITALS: BP 121/58
[2019-09-10] MEDS: ALBUTEROL SULFATE 2.5 MG/3 ML NEBU NEB SCH ×4 (01:45→19:35)
[2019-09-10] MEDS: VITAL AF 1.2 1,000 ML LIQUID GT PRN (02:00)
[2019-09-10] MEDS: PANTOPRAZOLE ORAL SUSPENSION 40 MG SUSPDR.PKT GT SCH ×2 (06:09→17:32)
[2019-09-10 08:00] VITALS: BP 116/51
[2019-09-10] MEDS: ASPIRIN 81 MG TAB.CHEW GT SCH (08:50)
[2019-09-10] MEDS: LOSARTAN POTASSIUM 50 MG TABLET GT SCH (08:50)
[2019-09-10] MEDS: METOPROLOL TARTRATE 50 MG TABLET GT SCH ×2 (08:50→21:00)
[2019-09-10] MEDS: ACIDOPHILUS/BULGARICUS CHEW TAB GT SCH ×2 (08:50→21:14)
[2019-09-10] MEDS: ATORVASTATIN 20 MG TABLET GT SCH (08:50)
[2019-09-10] MEDS: HEPARIN SODIUM,PORCINE 5,000 UNITS/ML VIAL SQ SCH ×2 (08:51→21:16)
[2019-09-10] MEDS: COD LIVER OIL/ZINC OXIDE OINT 113 GM TUBE TP SCH ×2 (08:51→21:15)
[2019-09-10] MEDS: NUTRISOURCE FIBER 4 GM PACKET GT SCH (08:51)
[2019-09-10] MEDS: HYDROGEN PEROXIDE 3% 118 ML BOTTLE TP SCH ×2 (09:00→21:27)
--- NOTE | 2019-09-10 11:58 | NUR ---
Seen by Yasmeen Lunsford with no new orders.
[2019-09-10] MEDS: MULTIVIT, IRON, MIN NO. 8, FA TABLET GT SCH (21:14)
[2019-09-10 21:22] VITALS: BP 129/47
[2019-09-11] MEDS: ALBUTEROL SULFATE 2.5 MG/3 ML NEBU NEB SCH ×4 (01:09→19:40)
[2019-09-11] MEDS: PANTOPRAZOLE ORAL SUSPENSION 40 MG SUSPDR.PKT GT SCH ×2 (05:07→18:21)
[2019-09-11] MEDS: VITAL AF 1.2 1,000 ML LIQUID GT PRN (05:07)
[2019-09-11 08:00] VITALS: BP 132/52
[2019-09-11] MEDS: HYDROGEN PEROXIDE 3% 118 ML BOTTLE TP SCH ×2 (08:13→21:00)
[2019-09-11] MEDS: ASPIRIN 81 MG TAB.CHEW GT SCH (08:48)
[2019-09-11] MEDS: LOSARTAN POTASSIUM 50 MG TABLET GT SCH (08:50)
[2019-09-11] MEDS: ACIDOPHILUS/BULGARICUS CHEW TAB GT SCH ×2 (08:51→20:36)
[2019-09-11] MEDS: ATORVASTATIN 20 MG TABLET GT SCH (08:52)
[2019-09-11] MEDS: NUTRISOURCE FIBER 4 GM PACKET GT SCH (08:52)
[2019-09-11] MEDS: METOPROLOL TARTRATE 50 MG TABLET GT SCH ×2 (08:52→20:36)
[2019-09-11] MEDS: COD LIVER OIL/ZINC OXIDE OINT 113 GM TUBE TP SCH ×2 (08:52→20:37)
[2019-09-11] MEDS: HEPARIN SODIUM,PORCINE 5,000 UNITS/ML VIAL SQ SCH ×2 (08:57→20:37)
[2019-09-11 21:30] VITALS: BP 112/70
[2019-09-11 21:32] VITALS: BP_SYST 112; BP_SYST 122; BP_DIAS 70; BP_DIAS 77
[2019-09-12] MEDS: VITAL AF 1.2 1,000 ML LIQUID GT PRN (01:00)
[2019-09-12] MEDS: ALBUTEROL SULFATE 2.5 MG/3 ML NEBU NEB SCH ×4 (02:15→19:00)
[2019-09-12] MEDS: PANTOPRAZOLE ORAL SUSPENSION 40 MG SUSPDR.PKT GT SCH ×2 (05:44→17:47)
[2019-09-12 08:09] VITALS: BP 120/45
[2019-09-12] MEDS: ASPIRIN 81 MG TAB.CHEW GT SCH (08:16)
[2019-09-12] MEDS: ACIDOPHILUS/BULGARICUS CHEW TAB GT SCH ×2 (08:23→20:40)
[2019-09-12] MEDS: LOSARTAN POTASSIUM 50 MG TABLET GT SCH (08:23)
[2019-09-12] MEDS: ATORVASTATIN 20 MG TABLET GT SCH (08:23)
[2019-09-12] MEDS: METOPROLOL TARTRATE 50 MG TABLET GT SCH ×2 (08:23→20:41)
[2019-09-12] MEDS: NUTRISOURCE FIBER 4 GM PACKET GT SCH (08:24)
[2019-09-12] MEDS: HEPARIN SODIUM,PORCINE 5,000 UNITS/ML VIAL SQ SCH ×2 (08:27→20:42)
[2019-09-12] MEDS: COD LIVER OIL/ZINC OXIDE OINT 113 GM TUBE TP SCH ×2 (08:28→20:42)
[2019-09-12] MEDS: HYDROGEN PEROXIDE 3% 118 ML BOTTLE TP SCH ×2 (09:43→21:50)
--- NOTE | 2019-09-12 14:00 | NUR ---
Accountant Helper care done by Dr Lopez.
--- NOTE | 2019-09-12 17:45 | NUR ---
nEW ORDERS FROM DR WALLACE FOR CBC,BMP,PH,MG IN AM.
[2019-09-12] MEDS: MULTIVIT, IRON, MIN NO. 8, FA TABLET GT SCH (20:41)
[2019-09-12 21:22] VITALS: BP 115/65
[2019-09-13] MEDS: VITAL AF 1.2 1,000 ML LIQUID GT PRN (00:30)
[2019-09-13] MEDS: ALBUTEROL SULFATE 2.5 MG/3 ML NEBU NEB SCH ×4 (01:22→20:20)
[2019-09-13] MEDS: PANTOPRAZOLE ORAL SUSPENSION 40 MG SUSPDR.PKT GT SCH ×2 (05:56→18:00)
[2019-09-13 06:26] LABS: BASOPHILS # (AUTO) 0.1 K/uL (0.0-8.0); BASOPHILS % (AUTO) 1.8 % (0.0-2.0); EOSINOPHILS # (AUTO) 0.4 K/uL (0.0-0.7); EOSINOPHILS % (AUTO) 6.1 % (0.0-7.0); HEMATOCRIT 37.5 % (36.7-47.1); HEMOGLOBIN 12.8 g/dL (12.5-16.3); LYMPHOCYTES # (AUTO) 1.4 K/uL (20.0-40.0); LYMPHOCYTES % (AUTO) 23.7 % (20.5-51.5); MEAN CORPUSCULAR HEMOGLOBIN 32.5 uug (23.8-33.4); MEAN CORPUSCULAR HGB CONC 34 g/dL (32.5-36.3); MEAN CORPUSCULAR VOLUME 95.3 fL (73.0-96.2); MONOCYTES # (AUTO) 0.4 K/uL (2.0-10.0); MONOCYTES % (AUTO) 6.6 % (0.0-11.0); NEUTROPHILS # (AUTO) 3.6 K/uL (1.8-8.9); NEUTROPHILS % (AUTO) 61.8 % (38.5-71.5); PLATELET COUNT (AUTO) 261 K/uL (152-348); RED BLOOD CELL COUNT(AUTO) 3.94 MIL/uL (4.06-5.63); WHITE BLOOD COUNT (AUTO) 5.8 K/uL (3.6-10.2)
[2019-09-13 06:46] LABS: CREATININE 0.7 mg/dL (0.6-1.3); PHOSPHOROUS 3.6 mg/dL (2.5-4.9); POTASSIUM 4.1 mmol/L (3.5-5.1)
[2019-09-13] MEDS: ASPIRIN 81 MG TAB.CHEW GT SCH (08:28)
[2019-09-13] MEDS: ATORVASTATIN 20 MG TABLET GT SCH (08:29)
[2019-09-13] MEDS: LOSARTAN POTASSIUM 50 MG TABLET GT SCH (08:29)
[2019-09-13] MEDS: ACIDOPHILUS/BULGARICUS CHEW TAB GT SCH ×2 (08:29→20:51)
[2019-09-13 08:30] VITALS: BP 112/56
[2019-09-13] MEDS: NUTRISOURCE FIBER 4 GM PACKET GT SCH (08:30)
[2019-09-13] MEDS: METOPROLOL TARTRATE 50 MG TABLET GT SCH ×2 (08:30→20:51)
[2019-09-13] MEDS: COD LIVER OIL/ZINC OXIDE OINT 113 GM TUBE TP SCH ×2 (08:31→20:53)
[2019-09-13] MEDS: HEPARIN SODIUM,PORCINE 5,000 UNITS/ML VIAL SQ SCH ×2 (08:33→21:00)
[2019-09-13] MEDS: HYDROGEN PEROXIDE 3% 118 ML BOTTLE TP SCH ×2 (09:14→20:20)
--- NOTE | 2019-09-13 18:42 | NUR ---
SEEN BY DR. GUTIERREZ AND WITH NNO.
[2019-09-13 20:45] VITALS: BP 124/51
[2019-09-14] MEDS: ALBUTEROL SULFATE 2.5 MG/3 ML NEBU NEB SCH ×4 (01:01→19:53)
[2019-09-14] MEDS: VITAL AF 1.2 1,000 ML LIQUID GT PRN (04:04)
[2019-09-14] MEDS: PANTOPRAZOLE ORAL SUSPENSION 40 MG SUSPDR.PKT GT SCH ×2 (05:47→17:18)
[2019-09-14] MEDS: LOSARTAN POTASSIUM 50 MG TABLET GT SCH (09:00)
[2019-09-14] MEDS: METOPROLOL TARTRATE 50 MG TABLET GT SCH ×2 (09:00→20:56)
[2019-09-14] MEDS: ACIDOPHILUS/BULGARICUS CHEW TAB GT SCH ×2 (09:07→20:56)
[2019-09-14] MEDS: ASPIRIN 81 MG TAB.CHEW GT SCH (09:07)
[2019-09-14] MEDS: ATORVASTATIN 20 MG TABLET GT SCH (09:09)
[2019-09-14] MEDS: COD LIVER OIL/ZINC OXIDE OINT 113 GM TUBE TP SCH ×2 (09:10→20:56)
[2019-09-14] MEDS: NUTRISOURCE FIBER 4 GM PACKET GT SCH (09:10)
[2019-09-14] MEDS: HYDROGEN PEROXIDE 3% 118 ML BOTTLE TP SCH ×2 (09:15→21:20)
[2019-09-14] MEDS: HEPARIN SODIUM,PORCINE 5,000 UNITS/ML VIAL SQ SCH ×2 (09:17→20:57)
[2019-09-14 11:24] VITALS: BP 110/42
[2019-09-14] MEDS: MULTIVIT, IRON, MIN NO. 8, FA TABLET GT SCH (20:56)
[2019-09-14 22:29] VITALS: BP 123/64
[2019-09-15] MEDS: ALBUTEROL SULFATE 2.5 MG/3 ML NEBU NEB SCH ×4 (00:56→19:45)
[2019-09-15] MEDS: VITAL AF 1.2 1,000 ML LIQUID GT PRN (02:12)
[2019-09-15] MEDS: PANTOPRAZOLE ORAL SUSPENSION 40 MG SUSPDR.PKT GT SCH ×2 (05:23→17:49)
[2019-09-15] MEDS: NUTRISOURCE FIBER 4 GM PACKET GT SCH (08:01)
[2019-09-15] MEDS: ACIDOPHILUS/BULGARICUS CHEW TAB GT SCH ×2 (08:01→20:53)
[2019-09-15] MEDS: LOSARTAN POTASSIUM 50 MG TABLET GT SCH (08:01)
[2019-09-15] MEDS: METOPROLOL TARTRATE 50 MG TABLET GT SCH ×2 (08:01→20:53)
[2019-09-15] MEDS: ATORVASTATIN 20 MG TABLET GT SCH (08:01)
[2019-09-15] MEDS: ASPIRIN 81 MG TAB.CHEW GT SCH (08:01)
[2019-09-15] MEDS: HYDROGEN PEROXIDE 3% 118 ML BOTTLE TP SCH ×3 (08:02→21:37)
[2019-09-15] MEDS: COD LIVER OIL/ZINC OXIDE OINT 113 GM TUBE TP SCH ×2 (08:02→20:54)
[2019-09-15] MEDS: HEPARIN SODIUM,PORCINE 5,000 UNITS/ML VIAL SQ SCH ×2 (08:08→20:54)
[2019-09-15 14:13] VITALS: BP 117/50
[2019-09-15 21:54] VITALS: BP 116/58
[2019-09-16] MEDS: ALBUTEROL SULFATE 2.5 MG/3 ML NEBU NEB SCH ×4 (00:51→19:40)
[2019-09-16] MEDS: VITAL AF 1.2 1,000 ML LIQUID GT PRN ×2 (03:28→21:34)
[2019-09-16] MEDS: PANTOPRAZOLE ORAL SUSPENSION 40 MG SUSPDR.PKT GT SCH ×2 (05:27→17:37)
[2019-09-16] MEDS: ACIDOPHILUS/BULGARICUS CHEW TAB GT SCH ×2 (08:08→21:00)
[2019-09-16] MEDS: ASPIRIN 81 MG TAB.CHEW GT SCH (08:08)
[2019-09-16] MEDS: LOSARTAN POTASSIUM 50 MG TABLET GT SCH (08:09)
[2019-09-16] MEDS: NUTRISOURCE FIBER 4 GM PACKET GT SCH (08:10)
[2019-09-16] MEDS: METOPROLOL TARTRATE 50 MG TABLET GT SCH ×2 (08:10→21:00)
[2019-09-16] MEDS: COD LIVER OIL/ZINC OXIDE OINT 113 GM TUBE TP SCH ×2 (08:11→21:01)
[2019-09-16] MEDS: HYDROGEN PEROXIDE 3% 118 ML BOTTLE TP SCH ×2 (08:11→21:48)
[2019-09-16] MEDS: ATORVASTATIN 20 MG TABLET GT SCH (08:12)
[2019-09-16] MEDS: HEPARIN SODIUM,PORCINE 5,000 UNITS/ML VIAL SQ SCH ×2 (08:21→21:01)
[2019-09-16 11:15] VITALS: BP 96/66
[2019-09-16] MEDS: MULTIVIT, IRON, MIN NO. 8, FA TABLET GT SCH (21:00)
[2019-09-16 22:58] VITALS: BP 114/58
[2019-09-17] MEDS: ALBUTEROL SULFATE 2.5 MG/3 ML NEBU NEB SCH ×4 (01:58→20:06)
[2019-09-17] MEDS: PANTOPRAZOLE ORAL SUSPENSION 40 MG SUSPDR.PKT GT SCH ×2 (05:04→17:26)
[2019-09-17 08:00] VITALS: BP 108/56
[2019-09-17] MEDS: LOSARTAN POTASSIUM 50 MG TABLET GT SCH (08:37)
[2019-09-17] MEDS: ASPIRIN 81 MG TAB.CHEW GT SCH (08:37)
[2019-09-17] MEDS: ACIDOPHILUS/BULGARICUS CHEW TAB GT SCH ×2 (08:37→20:28)
[2019-09-17] MEDS: METOPROLOL TARTRATE 50 MG TABLET GT SCH ×2 (08:38→20:28)
[2019-09-17] MEDS: ATORVASTATIN 20 MG TABLET GT SCH (08:38)
[2019-09-17] MEDS: NUTRISOURCE FIBER 4 GM PACKET GT SCH (08:38)
[2019-09-17] MEDS: COD LIVER OIL/ZINC OXIDE OINT 113 GM TUBE TP SCH ×2 (08:39→20:28)
[2019-09-17] MEDS: HEPARIN SODIUM,PORCINE 5,000 UNITS/ML VIAL SQ SCH ×2 (08:39→20:34)
[2019-09-17] MEDS: HYDROGEN PEROXIDE 3% 118 ML BOTTLE TP SCH ×2 (09:06→20:06)
--- NOTE | 2019-09-17 13:00 | NUR ---
SEEN BY ENOCH Reyes AND WITH DR. APONTE AND WITH JEFFREYO.
[2019-09-17 20:35] VITALS: BP 120/84
[2019-09-17] MEDS: VITAL AF 1.2 1,000 ML LIQUID GT PRN (22:00)
[2019-09-18] MEDS: ALBUTEROL SULFATE 2.5 MG/3 ML NEBU NEB SCH ×4 (01:51→19:39)
[2019-09-18] MEDS: PANTOPRAZOLE ORAL SUSPENSION 40 MG SUSPDR.PKT GT SCH ×2 (05:13→17:25)
[2019-09-18 07:57] VITALS: BP 105/53
[2019-09-18] MEDS: ASPIRIN 81 MG TAB.CHEW GT SCH (08:14)
[2019-09-18] MEDS: LOSARTAN POTASSIUM 50 MG TABLET GT SCH (08:15)
[2019-09-18] MEDS: ATORVASTATIN 20 MG TABLET GT SCH (08:16)
[2019-09-18] MEDS: ACIDOPHILUS/BULGARICUS CHEW TAB GT SCH ×2 (08:16→20:50)
[2019-09-18] MEDS: METOPROLOL TARTRATE 50 MG TABLET GT SCH ×2 (08:19→20:51)
[2019-09-18] MEDS: COD LIVER OIL/ZINC OXIDE OINT 113 GM TUBE TP SCH ×2 (08:20→20:51)
[2019-09-18] MEDS: NUTRISOURCE FIBER 4 GM PACKET GT SCH (08:20)
[2019-09-18] MEDS: HEPARIN SODIUM,PORCINE 5,000 UNITS/ML VIAL SQ SCH ×2 (08:28→20:53)
[2019-09-18] MEDS: HYDROGEN PEROXIDE 3% 118 ML BOTTLE TP SCH ×2 (09:57→20:56)
[2019-09-18] MEDS: VITAL AF 1.2 1,000 ML LIQUID GT PRN (18:51)
[2019-09-18 20:00] VITALS: BP 126/69
[2019-09-18] MEDS: MULTIVIT, IRON, MIN NO. 8, FA TABLET GT SCH (20:50)
[2019-09-19] MEDS: ALBUTEROL SULFATE 2.5 MG/3 ML NEBU NEB SCH ×4 (00:43→19:52)
[2019-09-19] MEDS: PANTOPRAZOLE ORAL SUSPENSION 40 MG SUSPDR.PKT GT SCH ×2 (05:07→17:33)
[2019-09-19] MEDS: HYDROGEN PEROXIDE 3% 118 ML BOTTLE TP SCH ×2 (08:32→21:22)
[2019-09-19] MEDS: ASPIRIN 81 MG TAB.CHEW GT SCH (08:50)
[2019-09-19] MEDS: ATORVASTATIN 20 MG TABLET GT SCH (08:53)
[2019-09-19] MEDS: LOSARTAN POTASSIUM 50 MG TABLET GT SCH (08:53)
[2019-09-19] MEDS: ACIDOPHILUS/BULGARICUS CHEW TAB GT SCH ×2 (08:53→20:50)
[2019-09-19] MEDS: METOPROLOL TARTRATE 50 MG TABLET GT SCH ×2 (08:54→20:49)
[2019-09-19] MEDS: COD LIVER OIL/ZINC OXIDE OINT 113 GM TUBE TP SCH ×2 (08:55→20:50)
[2019-09-19] MEDS: NUTRISOURCE FIBER 4 GM PACKET GT SCH (08:55)
[2019-09-19] MEDS: HEPARIN SODIUM,PORCINE 5,000 UNITS/ML VIAL SQ SCH ×2 (08:57→20:53)
[2019-09-19 10:29] VITALS: BP 125/72
--- NOTE | 2019-09-19 11:00 | NUR ---
Seen and examined by Dr Flores with no new orders noted.
[2019-09-19] MEDS: VITAL AF 1.2 1,000 ML LIQUID GT PRN (16:27)
[2019-09-19 20:00] VITALS: BP 132/70
[2019-09-20] MEDS: ALBUTEROL SULFATE 2.5 MG/3 ML NEBU NEB SCH ×4 (00:42→20:10)
[2019-09-20] MEDS: PANTOPRAZOLE ORAL SUSPENSION 40 MG SUSPDR.PKT GT SCH ×2 (05:47→17:21)
[2019-09-20] MEDS: LOSARTAN POTASSIUM 50 MG TABLET GT SCH (08:03)
[2019-09-20] MEDS: ATORVASTATIN 20 MG TABLET GT SCH (08:03)
[2019-09-20] MEDS: ASPIRIN 81 MG TAB.CHEW GT SCH (08:03)
[2019-09-20] MEDS: ACIDOPHILUS/BULGARICUS CHEW TAB GT SCH ×2 (08:03→20:46)
[2019-09-20] MEDS: METOPROLOL TARTRATE 50 MG TABLET GT SCH ×2 (08:03→20:47)
[2019-09-20] MEDS: NUTRISOURCE FIBER 4 GM PACKET GT SCH (08:04)
[2019-09-20] MEDS: HEPARIN SODIUM,PORCINE 5,000 UNITS/ML VIAL SQ SCH ×2 (08:05→20:48)
[2019-09-20] MEDS: COD LIVER OIL/ZINC OXIDE OINT 113 GM TUBE TP SCH ×2 (08:05→20:48)
[2019-09-20] MEDS: HYDROGEN PEROXIDE 3% 118 ML BOTTLE TP SCH ×2 (09:13→20:10)
[2019-09-20 13:43] VITALS: BP 103/85
[2019-09-20] MEDS: VITAL AF 1.2 1,000 ML LIQUID GT PRN (14:04)
[2019-09-20 20:00] VITALS: BP 136/63
[2019-09-20] MEDS: MULTIVIT, IRON, MIN NO. 8, FA TABLET GT SCH (20:48)
[2019-09-21] MEDS: ALBUTEROL SULFATE 2.5 MG/3 ML NEBU NEB SCH ×4 (01:42→20:18)
[2019-09-21] MEDS: PANTOPRAZOLE ORAL SUSPENSION 40 MG SUSPDR.PKT GT SCH ×2 (06:17→17:29)
[2019-09-21] MEDS: ASPIRIN 81 MG TAB.CHEW GT SCH (08:43)
[2019-09-21] MEDS: NUTRISOURCE FIBER 4 GM PACKET GT SCH (08:44)
[2019-09-21] MEDS: ACIDOPHILUS/BULGARICUS CHEW TAB GT SCH ×2 (08:44→20:14)
[2019-09-21] MEDS: LOSARTAN POTASSIUM 50 MG TABLET GT SCH (08:44)
[2019-09-21] MEDS: METOPROLOL TARTRATE 50 MG TABLET GT SCH ×2 (08:44→20:15)
[2019-09-21] MEDS: ATORVASTATIN 20 MG TABLET GT SCH (08:44)
[2019-09-21] MEDS: HEPARIN SODIUM,PORCINE 5,000 UNITS/ML VIAL SQ SCH ×2 (08:45→20:16)
[2019-09-21] MEDS: COD LIVER OIL/ZINC OXIDE OINT 113 GM TUBE TP SCH ×2 (08:45→20:16)
[2019-09-21] MEDS: HYDROGEN PEROXIDE 3% 118 ML BOTTLE TP SCH ×2 (09:50→20:18)
[2019-09-21 11:00] VITALS: BP 139/74
[2019-09-21 20:57] VITALS: BP 122/51
[2019-09-22] MEDS: ALBUTEROL SULFATE 2.5 MG/3 ML NEBU NEB SCH ×4 (01:56→19:57)
[2019-09-22] MEDS: PANTOPRAZOLE ORAL SUSPENSION 40 MG SUSPDR.PKT GT SCH ×2 (05:26→18:00)
[2019-09-22] MEDS: HYDROGEN PEROXIDE 3% 118 ML BOTTLE TP SCH ×2 (08:16→20:39)
[2019-09-22] MEDS: LOSARTAN POTASSIUM 50 MG TABLET GT SCH (09:00)
[2019-09-22] MEDS: METOPROLOL TARTRATE 50 MG TABLET GT SCH ×2 (09:00→21:00)
[2019-09-22] MEDS: ASPIRIN 81 MG TAB.CHEW GT SCH (09:19)
[2019-09-22] MEDS: ATORVASTATIN 20 MG TABLET GT SCH (09:20)
[2019-09-22] MEDS: ACIDOPHILUS/BULGARICUS CHEW TAB GT SCH ×2 (09:20→21:11)
[2019-09-22] MEDS: NUTRISOURCE FIBER 4 GM PACKET GT SCH (09:20)
[2019-09-22] MEDS: COD LIVER OIL/ZINC OXIDE OINT 113 GM TUBE TP SCH ×2 (09:21→21:12)
[2019-09-22] MEDS: HEPARIN SODIUM,PORCINE 5,000 UNITS/ML VIAL SQ SCH ×2 (09:21→21:00)
[2019-09-22 11:50] VITALS: BP 108/46
[2019-09-22] MEDS: VITAL AF 1.2 1,000 ML LIQUID GT PRN (12:34)
[2019-09-22 20:20] VITALS: BP 118/61
--- NOTE | 2019-09-22 21:00 | NUR ---
found gt out, stat kub with gastrografin to confirm gt placement, 2351-confirmed placement, 2430-started feeding, tolerated feeding well.
[2019-09-22] MEDS: MULTIVIT, IRON, MIN NO. 8, FA TABLET GT SCH (21:12)
[2019-09-23] MEDS: ALBUTEROL SULFATE 2.5 MG/3 ML NEBU NEB SCH ×4 (01:49→20:11)
[2019-09-23] MEDS: PANTOPRAZOLE ORAL SUSPENSION 40 MG SUSPDR.PKT GT SCH ×2 (05:46→17:06)
[2019-09-23] MEDS: HYDROGEN PEROXIDE 3% 118 ML BOTTLE TP SCH ×2 (08:00→21:27)
[2019-09-23 08:30] VITALS: BP 114/55
[2019-09-23] MEDS: ASPIRIN 81 MG TAB.CHEW GT SCH (08:41)
[2019-09-23] MEDS: NUTRISOURCE FIBER 4 GM PACKET GT SCH (08:42)
[2019-09-23] MEDS: METOPROLOL TARTRATE 50 MG TABLET GT SCH ×2 (08:42→20:49)
[2019-09-23] MEDS: ACIDOPHILUS/BULGARICUS CHEW TAB GT SCH ×2 (08:42→20:48)
[2019-09-23] MEDS: ATORVASTATIN 20 MG TABLET GT SCH (08:42)
[2019-09-23] MEDS: LOSARTAN POTASSIUM 50 MG TABLET GT SCH (08:42)
[2019-09-23] MEDS: HEPARIN SODIUM,PORCINE 5,000 UNITS/ML VIAL SQ SCH ×2 (08:43→20:51)
[2019-09-23] MEDS: COD LIVER OIL/ZINC OXIDE OINT 113 GM TUBE TP SCH ×2 (08:43→20:48)
--- NOTE | 2019-09-23 18:30 | NUR ---
Reported patient has diarrhea x4, kept clean and dry continue monitoring.
[2019-09-23 22:43] VITALS: BP 122/58
[2019-09-24] MEDS: ALBUTEROL SULFATE 2.5 MG/3 ML NEBU NEB SCH ×4 (01:10→20:02)
[2019-09-24] MEDS: PANTOPRAZOLE ORAL SUSPENSION 40 MG SUSPDR.PKT GT SCH ×2 (05:17→18:24)
[2019-09-24] MEDS: HYDROGEN PEROXIDE 3% 118 ML BOTTLE TP SCH ×2 (08:19→20:02)
[2019-09-24 08:30] VITALS: BP 118/52
[2019-09-24] MEDS: ASPIRIN 81 MG TAB.CHEW GT SCH (08:41)
[2019-09-24] MEDS: LOSARTAN POTASSIUM 50 MG TABLET GT SCH (08:42)
[2019-09-24] MEDS: ACIDOPHILUS/BULGARICUS CHEW TAB GT SCH ×2 (08:43→20:31)
[2019-09-24] MEDS: METOPROLOL TARTRATE 50 MG TABLET GT SCH ×2 (08:44→20:32)
[2019-09-24] MEDS: ATORVASTATIN 20 MG TABLET GT SCH (08:44)
[2019-09-24] MEDS: NUTRISOURCE FIBER 4 GM PACKET GT SCH (08:44)
[2019-09-24] MEDS: COD LIVER OIL/ZINC OXIDE OINT 113 GM TUBE TP SCH ×2 (08:45→20:31)
[2019-09-24] MEDS: HEPARIN SODIUM,PORCINE 5,000 UNITS/ML VIAL SQ SCH ×2 (08:49→20:32)
--- NOTE | 2019-09-24 09:30 | NUR ---
No diarrhea reported from child center assistant, seen by Dr. Sanchez, notified of pt's condition (diarrhea x4 yesterday, kub done with Gastrografin to check gtube placement) no new orders given at this time.
[2019-09-24 20:17] VITALS: BP 137/70
[2019-09-24] MEDS: MULTIVIT, IRON, MIN NO. 8, FA TABLET GT SCH (20:31)
[2019-09-25] MEDS: ALBUTEROL SULFATE 2.5 MG/3 ML NEBU NEB SCH ×4 (01:09→20:09)
[2019-09-25] MEDS: PANTOPRAZOLE ORAL SUSPENSION 40 MG SUSPDR.PKT GT SCH ×2 (05:09→17:27)
[2019-09-25] MEDS: VITAL AF 1.2 1,000 ML LIQUID GT PRN (05:09)
[2019-09-25 08:04] VITALS: BP 119/65
[2019-09-25] MEDS: HYDROGEN PEROXIDE 3% 118 ML BOTTLE TP SCH ×2 (08:31→20:59)
[2019-09-25] MEDS: LOSARTAN POTASSIUM 50 MG TABLET GT SCH (08:48)
[2019-09-25] MEDS: ASPIRIN 81 MG TAB.CHEW GT SCH (08:48)
[2019-09-25] MEDS: ACIDOPHILUS/BULGARICUS CHEW TAB GT SCH ×2 (08:49→21:07)
[2019-09-25] MEDS: METOPROLOL TARTRATE 50 MG TABLET GT SCH ×2 (08:51→21:13)
[2019-09-25] MEDS: NUTRISOURCE FIBER 4 GM PACKET GT SCH (08:52)
[2019-09-25] MEDS: ATORVASTATIN 20 MG TABLET GT SCH (09:28)
[2019-09-25] MEDS: COD LIVER OIL/ZINC OXIDE OINT 113 GM TUBE TP SCH ×2 (09:29→21:09)
[2019-09-25] MEDS: HEPARIN SODIUM,PORCINE 5,000 UNITS/ML VIAL SQ SCH ×2 (09:30→21:08)
--- NOTE | 2019-09-25 16:00 | NUR ---
SW notified patient's son Reji, daughter Marina, and [id number] Gin via email that the next IDT meeting for the patient has been scheduled for 10/02/2019 at 11am. SW asked for them to respond to this SW and let her know if they would like to participate in the meeting via conference call. SW waiting to hear back from Reji, Marina, or Gin.
[2019-09-26] MEDS: ALBUTEROL SULFATE 2.5 MG/3 ML NEBU NEB SCH ×4 (01:39→19:08)
[2019-09-26] MEDS: VITAL AF 1.2 1,000 ML LIQUID GT PRN (03:45)
[2019-09-26] MEDS: PANTOPRAZOLE ORAL SUSPENSION 40 MG SUSPDR.PKT GT SCH ×2 (06:30→17:40)
[2019-09-26 08:00] VITALS: BP 120/61
[2019-09-26] MEDS: ACIDOPHILUS/BULGARICUS CHEW TAB GT SCH ×2 (08:27→20:48)
[2019-09-26] MEDS: ASPIRIN 81 MG TAB.CHEW GT SCH (08:29)
[2019-09-26] MEDS: ATORVASTATIN 20 MG TABLET GT SCH (08:29)
[2019-09-26] MEDS: NUTRISOURCE FIBER 4 GM PACKET GT SCH (08:31)
[2019-09-26] MEDS: HEPARIN SODIUM,PORCINE 5,000 UNITS/ML VIAL SQ SCH ×2 (08:32→20:50)
[2019-09-26] MEDS: LOSARTAN POTASSIUM 50 MG TABLET GT SCH (08:39)
[2019-09-26] MEDS: METOPROLOL TARTRATE 50 MG TABLET GT SCH ×2 (08:40→20:48)
[2019-09-26] MEDS: HYDROGEN PEROXIDE 3% 118 ML BOTTLE TP SCH ×2 (08:40→21:00)
[2019-09-26] MEDS: COD LIVER OIL/ZINC OXIDE OINT 113 GM TUBE TP SCH ×2 (08:40→20:50)
[2019-09-26 20:23] VITALS: BP 118/62
[2019-09-26] MEDS: MULTIVIT, IRON, MIN NO. 8, FA TABLET GT SCH (20:49)
[2019-09-27] MEDS: ALBUTEROL SULFATE 2.5 MG/3 ML NEBU NEB SCH ×4 (01:12→20:49)
[2019-09-27] MEDS: PANTOPRAZOLE ORAL SUSPENSION 40 MG SUSPDR.PKT GT SCH ×2 (06:02→17:35)
[2019-09-27 08:00] VITALS: BP 120/63
[2019-09-27] MEDS: METOPROLOL TARTRATE 50 MG TABLET GT SCH ×2 (09:00→21:00)
[2019-09-27] MEDS: HYDROGEN PEROXIDE 3% 118 ML BOTTLE TP SCH ×2 (09:00→21:31)
[2019-09-27] MEDS: LOSARTAN POTASSIUM 50 MG TABLET GT SCH (09:00)
[2019-09-27] MEDS: ASPIRIN 81 MG TAB.CHEW GT SCH (09:03)
[2019-09-27] MEDS: ACIDOPHILUS/BULGARICUS CHEW TAB GT SCH ×2 (09:05→21:31)
[2019-09-27] MEDS: ATORVASTATIN 20 MG TABLET GT SCH (09:06)
[2019-09-27] MEDS: NUTRISOURCE FIBER 4 GM PACKET GT SCH (09:07)
[2019-09-27] MEDS: COD LIVER OIL/ZINC OXIDE OINT 113 GM TUBE TP SCH ×2 (09:08→21:32)
[2019-09-27] MEDS: HEPARIN SODIUM,PORCINE 5,000 UNITS/ML VIAL SQ SCH ×2 (09:08→21:33)
[2019-09-27] MEDS: VITAL AF 1.2 1,000 ML LIQUID GT PRN (17:36)
[2019-09-27 23:35] VITALS: BP 120/60
[2019-09-28] MEDS: ALBUTEROL SULFATE 2.5 MG/3 ML NEBU NEB SCH ×4 (01:09→20:12)
[2019-09-28] MEDS: PANTOPRAZOLE ORAL SUSPENSION 40 MG SUSPDR.PKT GT SCH ×2 (05:39→17:27)
[2019-09-28 08:04] VITALS: BP 109/60
[2019-09-28] MEDS: HYDROGEN PEROXIDE 3% 118 ML BOTTLE TP SCH ×2 (09:00→21:44)
[2019-09-28] MEDS: METOPROLOL TARTRATE 50 MG TABLET GT SCH ×2 (09:00→20:46)
[2019-09-28] MEDS: LOSARTAN POTASSIUM 50 MG TABLET GT SCH (09:00)
[2019-09-28] MEDS: ACIDOPHILUS/BULGARICUS CHEW TAB GT SCH ×2 (09:11→20:45)
[2019-09-28] MEDS: NUTRISOURCE FIBER 4 GM PACKET GT SCH (09:11)
[2019-09-28] MEDS: ATORVASTATIN 20 MG TABLET GT SCH (09:11)
[2019-09-28] MEDS: ASPIRIN 81 MG TAB.CHEW GT SCH (09:11)
[2019-09-28] MEDS: COD LIVER OIL/ZINC OXIDE OINT 113 GM TUBE TP SCH ×2 (09:12→20:46)
[2019-09-28] MEDS: HEPARIN SODIUM,PORCINE 5,000 UNITS/ML VIAL SQ SCH ×2 (09:12→20:45)
[2019-09-28 20:00] VITALS: BP 110/71
[2019-09-28] MEDS: MULTIVIT, IRON, MIN NO. 8, FA TABLET GT SCH (20:46)
[2019-09-29] MEDS: ALBUTEROL SULFATE 2.5 MG/3 ML NEBU NEB SCH ×4 (00:59→19:07)
[2019-09-29] MEDS: PANTOPRAZOLE ORAL SUSPENSION 40 MG SUSPDR.PKT GT SCH ×2 (05:33→17:50)
[2019-09-29] MEDS: HEPARIN SODIUM,PORCINE 5,000 UNITS/ML VIAL SQ SCH ×2 (09:00→20:36)
[2019-09-29] MEDS: HYDROGEN PEROXIDE 3% 118 ML BOTTLE TP SCH ×2 (09:00→21:08)
[2019-09-29] MEDS: ACIDOPHILUS/BULGARICUS CHEW TAB GT SCH ×2 (09:00→20:36)
[2019-09-29] MEDS: ASPIRIN 81 MG TAB.CHEW GT SCH (09:00)
[2019-09-29] MEDS: ATORVASTATIN 20 MG TABLET GT SCH (09:00)
[2019-09-29] MEDS: NUTRISOURCE FIBER 4 GM PACKET GT SCH (09:00)
[2019-09-29] MEDS: COD LIVER OIL/ZINC OXIDE OINT 113 GM TUBE TP SCH ×2 (09:00→20:37)
[2019-09-29] MEDS: METOPROLOL TARTRATE 50 MG TABLET GT SCH ×2 (09:00→20:36)
[2019-09-29 12:17] VITALS: BP 117/62
[2019-09-29] MEDS: LOSARTAN POTASSIUM 50 MG TABLET GT SCH (12:52)
[2019-09-29] MEDS: VITAL AF 1.2 1,000 ML LIQUID GT PRN (12:53)
[2019-09-29 22:23] VITALS: BP 115/56
[2019-09-30] MEDS: ALBUTEROL SULFATE 2.5 MG/3 ML NEBU NEB SCH ×4 (01:26→19:35)
[2019-09-30] MEDS: PANTOPRAZOLE ORAL SUSPENSION 40 MG SUSPDR.PKT GT SCH ×2 (05:35→18:09)
[2019-09-30] MEDS: LOSARTAN POTASSIUM 50 MG TABLET GT SCH (08:18)
[2019-09-30] MEDS: ASPIRIN 81 MG TAB.CHEW GT SCH (08:18)
[2019-09-30] MEDS: ACIDOPHILUS/BULGARICUS CHEW TAB GT SCH ×2 (08:19→20:51)
[2019-09-30] MEDS: METOPROLOL TARTRATE 50 MG TABLET GT SCH ×2 (08:21→20:51)
[2019-09-30] MEDS: ATORVASTATIN 20 MG TABLET GT SCH (08:21)
[2019-09-30] MEDS: NUTRISOURCE FIBER 4 GM PACKET GT SCH (08:22)
[2019-09-30] MEDS: COD LIVER OIL/ZINC OXIDE OINT 113 GM TUBE TP SCH ×2 (08:22→20:52)
[2019-09-30] MEDS: HYDROGEN PEROXIDE 3% 118 ML BOTTLE TP SCH ×2 (08:35→20:50)
[2019-09-30] MEDS: HEPARIN SODIUM,PORCINE 5,000 UNITS/ML VIAL SQ SCH ×2 (08:59→20:51)
[2019-09-30 11:34] VITALS: BP 106/66
[2019-09-30] MEDS: VITAL AF 1.2 1,000 ML LIQUID GT PRN (16:39)
[2019-09-30] MEDS: MULTIVIT, IRON, MIN NO. 8, FA TABLET GT SCH (20:51)
[2019-09-30 22:11] VITALS: BP 124/58
[2019-10-01] MEDS: ALBUTEROL SULFATE 2.5 MG/3 ML NEBU NEB SCH ×4 (00:37→19:55)
[2019-10-01] MEDS: PANTOPRAZOLE ORAL SUSPENSION 40 MG SUSPDR.PKT GT SCH ×2 (05:08→18:15)
[2019-10-01] MEDS: ASPIRIN 81 MG TAB.CHEW GT SCH (08:09)
[2019-10-01] MEDS: ACIDOPHILUS/BULGARICUS CHEW TAB GT SCH ×2 (08:09→21:01)
[2019-10-01] MEDS: ATORVASTATIN 20 MG TABLET GT SCH (08:09)
[2019-10-01] MEDS: LOSARTAN POTASSIUM 50 MG TABLET GT SCH (08:09)
[2019-10-01] MEDS: METOPROLOL TARTRATE 50 MG TABLET GT SCH ×2 (08:10→21:00)
[2019-10-01] MEDS: NUTRISOURCE FIBER 4 GM PACKET GT SCH (08:10)
[2019-10-01] MEDS: COD LIVER OIL/ZINC OXIDE OINT 113 GM TUBE TP SCH ×2 (08:11→21:02)
[2019-10-01] MEDS: HEPARIN SODIUM,PORCINE 5,000 UNITS/ML VIAL SQ SCH ×2 (08:13→21:00)
[2019-10-01 08:30] VITALS: BP 106/50
[2019-10-01] MEDS: HYDROGEN PEROXIDE 3% 118 ML BOTTLE TP SCH ×2 (10:10→21:02)
[2019-10-01 20:25] VITALS: BP 116/56
[2019-10-02] MEDS: VITAL AF 1.2 1,000 ML LIQUID GT PRN (00:15)
[2019-10-02] MEDS: ALBUTEROL SULFATE 2.5 MG/3 ML NEBU NEB SCH ×4 (01:34→19:40)
[2019-10-02] MEDS: PANTOPRAZOLE ORAL SUSPENSION 40 MG SUSPDR.PKT GT SCH ×2 (05:02→17:27)
[2019-10-02 07:48] VITALS: BP 117/53
[2019-10-02] MEDS: LOSARTAN POTASSIUM 50 MG TABLET GT SCH (08:17)
[2019-10-02] MEDS: METOPROLOL TARTRATE 50 MG TABLET GT SCH ×2 (08:17→20:50)
[2019-10-02] MEDS: ACIDOPHILUS/BULGARICUS CHEW TAB GT SCH ×2 (08:17→20:50)
[2019-10-02] MEDS: ASPIRIN 81 MG TAB.CHEW GT SCH (08:17)
[2019-10-02] MEDS: ATORVASTATIN 20 MG TABLET GT SCH (08:17)
[2019-10-02] MEDS: NUTRISOURCE FIBER 4 GM PACKET GT SCH (08:18)
[2019-10-02] MEDS: COD LIVER OIL/ZINC OXIDE OINT 113 GM TUBE TP SCH ×2 (08:18→20:52)
[2019-10-02] MEDS: HEPARIN SODIUM,PORCINE 5,000 UNITS/ML VIAL SQ SCH ×2 (08:19→20:52)
[2019-10-02] MEDS: HYDROGEN PEROXIDE 3% 118 ML BOTTLE TP SCH ×2 (09:04→21:41)
--- NOTE | 2019-10-02 14:37 | NUR ---
INTERDISCIPLINARY PLAN OF CARE CONFERENCE was held today. Patient's family was unable to participate in the meeting. Dr. Leary and the Interdisciplinary Team reviewed the current plan of care in detail. RN reported on patient's medical condition. See RN IDT conference notes. No major changes in condition were reported. See also all other disciplines IDT notes and physician's progress notes for additional details.
--- NOTE | 2019-10-02 15:14 | NUR ---
Pharmacy Update from Today's 10/02/19 IDT meeting VS: Temp 98.5 BP 117/53 HR 59 LABS: (from 09/13/19) Wbc 5.8 H/H 12.8/37.5 Plt 261 Na 134 K 4.1 Cl 100 CO2 28 BUN/SCr 23/0.7 BS 107 Ca 8.8 Phos 3.6 Mg 2.0 MEDICATION USE REVIEWED: > Pt not on any anti-psych medications or anti-seizure medications > Pt on heparin 5000units q12hr. Last plt 261, dosing appropriate for renal fxn. No bleeding noted > Pt on BP meds with hold parameters, reasonably controlled, last BP wnl Cozaar 50mg daily (hold SBP <120), Lopressor 50mg q12hr (hold SBP <110 or HR <60) Note: (DF) does not want to d/c or change current BP medications d/t patient's CAD and PMH of intraventricular hemorrhage/embolism despite episodes of low BP. Patient's BP is well controlled with hold parameters at this time. >PRN MED USAGE (August) Tylenol for pain used x 0 Tylenol for temp used x 0 Artificial tears used x 0 NEW ORDERS NOTED: > NA Patient reviewed and discussed in depth with no medication issues or changes noted per staff. No further recommendations per rx as pt remains stable on current regimen. Will continue to follow
[2019-10-02 20:22] VITALS: BP 124/74
[2019-10-02] MEDS: MULTIVIT, IRON, MIN NO. 8, FA TABLET GT SCH (20:51)
[2019-10-03] MEDS: ALBUTEROL SULFATE 2.5 MG/3 ML NEBU NEB SCH ×4 (01:31→19:42)
[2019-10-03] MEDS: VITAL AF 1.2 1,000 ML LIQUID GT PRN (05:31)
[2019-10-03] MEDS: PANTOPRAZOLE ORAL SUSPENSION 40 MG SUSPDR.PKT GT SCH ×2 (05:31→17:22)
[2019-10-03 08:30] VITALS: BP 107/54
[2019-10-03] MEDS: ASPIRIN 81 MG TAB.CHEW GT SCH (08:34)
[2019-10-03] MEDS: LOSARTAN POTASSIUM 50 MG TABLET GT SCH (08:38)
[2019-10-03] MEDS: ATORVASTATIN 20 MG TABLET GT SCH (08:39)
[2019-10-03] MEDS: ACIDOPHILUS/BULGARICUS CHEW TAB GT SCH ×2 (08:39→20:54)
[2019-10-03] MEDS: METOPROLOL TARTRATE 50 MG TABLET GT SCH ×2 (08:40→20:54)
[2019-10-03] MEDS: NUTRISOURCE FIBER 4 GM PACKET GT SCH (08:41)
[2019-10-03] MEDS: COD LIVER OIL/ZINC OXIDE OINT 113 GM TUBE TP SCH ×2 (08:41→21:01)
[2019-10-03] MEDS: HEPARIN SODIUM,PORCINE 5,000 UNITS/ML VIAL SQ SCH ×2 (08:45→21:01)
[2019-10-03] MEDS: HYDROGEN PEROXIDE 3% 118 ML BOTTLE TP SCH ×2 (09:00→21:52)
[2019-10-03 20:00] VITALS: BP 132/69
[2019-10-04] MEDS: ALBUTEROL SULFATE 2.5 MG/3 ML NEBU NEB SCH ×4 (01:40→19:36)
[2019-10-04] MEDS: VITAL AF 1.2 1,000 ML LIQUID GT PRN (05:00)
[2019-10-04] MEDS: PANTOPRAZOLE ORAL SUSPENSION 40 MG SUSPDR.PKT GT SCH ×2 (06:07→17:16)
--- NOTE | 2019-10-04 06:40 | NUR ---
PER NURSE REPORTED PT HAS (R) EYE REDNESS & SWOLLEN UNDER (R) EYE KEEP CLEAN AND DRY.EYE DROP WAS GIVEN BY NURSE. PT KEEP SQUEEZE HIS EYE.CONTINUE MONITOR AND GOOD EYE CARE.
[2019-10-04 08:00] VITALS: BP 124/76
[2019-10-04] MEDS: ASPIRIN 81 MG TAB.CHEW GT SCH (08:20)
[2019-10-04] MEDS: ACIDOPHILUS/BULGARICUS CHEW TAB GT SCH ×2 (08:22→20:45)
[2019-10-04] MEDS: LOSARTAN POTASSIUM 50 MG TABLET GT SCH (08:22)
[2019-10-04] MEDS: ATORVASTATIN 20 MG TABLET GT SCH (08:22)
[2019-10-04] MEDS: NUTRISOURCE FIBER 4 GM PACKET GT SCH (08:24)
[2019-10-04] MEDS: HEPARIN SODIUM,PORCINE 5,000 UNITS/ML VIAL SQ SCH ×2 (08:24→20:46)
[2019-10-04] MEDS: METOPROLOL TARTRATE 50 MG TABLET GT SCH ×2 (08:25→20:45)
[2019-10-04] MEDS: COD LIVER OIL/ZINC OXIDE OINT 113 GM TUBE TP SCH ×2 (08:29→20:46)
[2019-10-04] MEDS: HYDROGEN PEROXIDE 3% 118 ML BOTTLE TP SCH ×2 (09:49→21:00)
[2019-10-04] MEDS: POLYVINYL ALCOHOL OPHT DROPS 15 ML BOTTLE EACHEYE PRN (17:17)
[2019-10-04 20:00] VITALS: BP 101/52
[2019-10-04] MEDS: MULTIVIT, IRON, MIN NO. 8, FA TABLET GT SCH (20:45)
[2019-10-05] MEDS: VITAL AF 1.2 1,000 ML LIQUID GT PRN ×2 (01:30→23:09)
[2019-10-05] MEDS: ALBUTEROL SULFATE 2.5 MG/3 ML NEBU NEB SCH ×4 (01:41→19:43)
[2019-10-05] MEDS: PANTOPRAZOLE ORAL SUSPENSION 40 MG SUSPDR.PKT GT SCH ×2 (05:54→17:09)
[2019-10-05 08:02] VITALS: BP 104/43
[2019-10-05] MEDS: ATORVASTATIN 20 MG TABLET GT SCH (08:03)
[2019-10-05] MEDS: ACIDOPHILUS/BULGARICUS CHEW TAB GT SCH ×2 (08:03→21:06)
[2019-10-05] MEDS: LOSARTAN POTASSIUM 50 MG TABLET GT SCH (08:03)
[2019-10-05] MEDS: ASPIRIN 81 MG TAB.CHEW GT SCH (08:03)
[2019-10-05] MEDS: METOPROLOL TARTRATE 50 MG TABLET GT SCH ×2 (08:03→21:00)
[2019-10-05] MEDS: HEPARIN SODIUM,PORCINE 5,000 UNITS/ML VIAL SQ SCH ×2 (08:04→21:11)
[2019-10-05] MEDS: COD LIVER OIL/ZINC OXIDE OINT 113 GM TUBE TP SCH ×2 (08:04→21:08)
[2019-10-05] MEDS: NUTRISOURCE FIBER 4 GM PACKET GT SCH (08:04)
[2019-10-05] MEDS: HYDROGEN PEROXIDE 3% 118 ML BOTTLE TP SCH ×2 (08:31→21:08)
[2019-10-05] MEDS: POLYVINYL ALCOHOL OPHT DROPS 15 ML BOTTLE EACHEYE PRN ×2 (10:08→17:10)
[2019-10-05 22:01] VITALS: BP 116/51
[2019-10-06] MEDS: ALBUTEROL SULFATE 2.5 MG/3 ML NEBU NEB SCH ×4 (01:36→19:53)
[2019-10-06] MEDS: PANTOPRAZOLE ORAL SUSPENSION 40 MG SUSPDR.PKT GT SCH ×2 (05:04→17:23)
[2019-10-06 08:02] VITALS: BP 125/45
[2019-10-06] MEDS: ASPIRIN 81 MG TAB.CHEW GT SCH (08:27)
[2019-10-06] MEDS: LOSARTAN POTASSIUM 50 MG TABLET GT SCH (08:28)
[2019-10-06] MEDS: ACIDOPHILUS/BULGARICUS CHEW TAB GT SCH ×2 (08:29→21:13)
[2019-10-06] MEDS: METOPROLOL TARTRATE 50 MG TABLET GT SCH ×2 (08:29→21:00)
[2019-10-06] MEDS: ATORVASTATIN 20 MG TABLET GT SCH (08:29)
[2019-10-06] MEDS: COD LIVER OIL/ZINC OXIDE OINT 113 GM TUBE TP SCH ×2 (08:30→21:14)
[2019-10-06] MEDS: NUTRISOURCE FIBER 4 GM PACKET GT SCH (08:30)
[2019-10-06] MEDS: HEPARIN SODIUM,PORCINE 5,000 UNITS/ML VIAL SQ SCH ×2 (08:30→21:42)
[2019-10-06] MEDS: HYDROGEN PEROXIDE 3% 118 ML BOTTLE TP SCH ×2 (09:06→21:00)
[2019-10-06] MEDS: VITAL AF 1.2 1,000 ML LIQUID GT PRN (17:23)
[2019-10-06] MEDS: MULTIVIT, IRON, MIN NO. 8, FA TABLET GT SCH (21:14)
[2019-10-06 22:45] VITALS: BP 112/54
[2019-10-07] MEDS: ALBUTEROL SULFATE 2.5 MG/3 ML NEBU NEB SCH ×4 (01:18→20:09)
[2019-10-07] MEDS: PANTOPRAZOLE ORAL SUSPENSION 40 MG SUSPDR.PKT GT SCH ×2 (05:23→17:48)
[2019-10-07 08:02] VITALS: BP 118/47
[2019-10-07] MEDS: HYDROGEN PEROXIDE 3% 118 ML BOTTLE TP SCH ×2 (08:51→20:09)
[2019-10-07] MEDS: COD LIVER OIL/ZINC OXIDE OINT 113 GM TUBE TP SCH ×2 (09:00→21:32)
[2019-10-07] MEDS: HEPARIN SODIUM,PORCINE 5,000 UNITS/ML VIAL SQ SCH ×2 (09:00→21:32)
[2019-10-07] MEDS: LOSARTAN POTASSIUM 50 MG TABLET GT SCH (09:00)
[2019-10-07] MEDS: NUTRISOURCE FIBER 4 GM PACKET GT SCH (09:00)
[2019-10-07] MEDS: METOPROLOL TARTRATE 50 MG TABLET GT SCH ×2 (09:00→21:00)
[2019-10-07] MEDS: ASPIRIN 81 MG TAB.CHEW GT SCH (10:43)
[2019-10-07] MEDS: ACIDOPHILUS/BULGARICUS CHEW TAB GT SCH ×2 (10:46→21:31)
[2019-10-07] MEDS: ATORVASTATIN 20 MG TABLET GT SCH (10:46)
[2019-10-07 19:49] VITALS: BP 133/59
[2019-10-07] MEDS: VITAL AF 1.2 1,000 ML LIQUID GT PRN (21:31)
[2019-10-08] MEDS: ALBUTEROL SULFATE 2.5 MG/3 ML NEBU NEB SCH ×4 (01:45→19:07)
[2019-10-08] MEDS: PANTOPRAZOLE ORAL SUSPENSION 40 MG SUSPDR.PKT GT SCH ×2 (05:04→17:49)
[2019-10-08 08:00] VITALS: BP 115/48
[2019-10-08] MEDS: HYDROGEN PEROXIDE 3% 118 ML BOTTLE TP SCH ×2 (08:39→21:38)
[2019-10-08] MEDS: METOPROLOL TARTRATE 50 MG TABLET GT SCH ×2 (08:41→21:00)
[2019-10-08] MEDS: LOSARTAN POTASSIUM 50 MG TABLET GT SCH (08:41)
[2019-10-08] MEDS: ACIDOPHILUS/BULGARICUS CHEW TAB GT SCH ×2 (08:41→21:05)
[2019-10-08] MEDS: ATORVASTATIN 20 MG TABLET GT SCH (08:41)
[2019-10-08] MEDS: NUTRISOURCE FIBER 4 GM PACKET GT SCH (08:41)
[2019-10-08] MEDS: ASPIRIN 81 MG TAB.CHEW GT SCH (08:41)
[2019-10-08] MEDS: HEPARIN SODIUM,PORCINE 5,000 UNITS/ML VIAL SQ SCH ×2 (08:42→21:09)
[2019-10-08] MEDS: COD LIVER OIL/ZINC OXIDE OINT 113 GM TUBE TP SCH ×2 (08:42→21:06)
--- NOTE | 2019-10-08 11:30 | NUR ---
Seen by Yasmeen Barahona, and Rosie RUTHERFORD, no new order given at this time.
[2019-10-08 20:26] VITALS: BP 138/50
[2019-10-08] MEDS: MULTIVIT, IRON, MIN NO. 8, FA TABLET GT SCH (21:06)
[2019-10-09] MEDS: ALBUTEROL SULFATE 2.5 MG/3 ML NEBU NEB SCH ×4 (00:45→19:50)
[2019-10-09] MEDS: PANTOPRAZOLE ORAL SUSPENSION 40 MG SUSPDR.PKT GT SCH ×2 (05:45→18:14)
[2019-10-09] MEDS: ASPIRIN 81 MG TAB.CHEW GT SCH (08:00)
[2019-10-09] MEDS: LOSARTAN POTASSIUM 50 MG TABLET GT SCH (08:00)
[2019-10-09] MEDS: ACIDOPHILUS/BULGARICUS CHEW TAB GT SCH ×2 (08:00→20:51)
[2019-10-09] MEDS: METOPROLOL TARTRATE 50 MG TABLET GT SCH ×2 (08:01→20:51)
[2019-10-09] MEDS: NUTRISOURCE FIBER 4 GM PACKET GT SCH (08:01)
[2019-10-09] MEDS: ATORVASTATIN 20 MG TABLET GT SCH (08:01)
[2019-10-09] MEDS: COD LIVER OIL/ZINC OXIDE OINT 113 GM TUBE TP SCH ×2 (08:04→20:52)
[2019-10-09] MEDS: HEPARIN SODIUM,PORCINE 5,000 UNITS/ML VIAL SQ SCH ×2 (08:04→20:50)
[2019-10-09] MEDS: HYDROGEN PEROXIDE 3% 118 ML BOTTLE TP SCH ×2 (09:00→21:39)
[2019-10-09 09:26] VITALS: BP 100/46
[2019-10-09] MEDS: VITAL AF 1.2 1,000 ML LIQUID GT PRN (15:03)
[2019-10-09 20:13] VITALS: BP 113/71
[2019-10-10] MEDS: ALBUTEROL SULFATE 2.5 MG/3 ML NEBU NEB SCH ×4 (01:49→20:28)
[2019-10-10] MEDS: PANTOPRAZOLE ORAL SUSPENSION 40 MG SUSPDR.PKT GT SCH ×2 (05:18→17:19)
[2019-10-10 08:00] VITALS: BP 110/67
[2019-10-10] MEDS: NUTRISOURCE FIBER 4 GM PACKET GT SCH (08:23)
[2019-10-10] MEDS: ASPIRIN 81 MG TAB.CHEW GT SCH (08:23)
[2019-10-10] MEDS: ATORVASTATIN 20 MG TABLET GT SCH (08:23)
[2019-10-10] MEDS: ACIDOPHILUS/BULGARICUS CHEW TAB GT SCH ×2 (08:23→21:06)
[2019-10-10] MEDS: LOSARTAN POTASSIUM 50 MG TABLET GT SCH (08:23)
[2019-10-10] MEDS: METOPROLOL TARTRATE 50 MG TABLET GT SCH ×2 (08:23→21:00)
[2019-10-10] MEDS: HEPARIN SODIUM,PORCINE 5,000 UNITS/ML VIAL SQ SCH ×2 (08:24→21:00)
[2019-10-10] MEDS: COD LIVER OIL/ZINC OXIDE OINT 113 GM TUBE TP SCH ×2 (08:24→21:07)
[2019-10-10] MEDS: HYDROGEN PEROXIDE 3% 118 ML BOTTLE TP SCH ×2 (09:03→21:00)
[2019-10-10 20:00] VITALS: BP 113/59
[2019-10-10] MEDS: MULTIVIT, IRON, MIN NO. 8, FA TABLET GT SCH (21:07)
[2019-10-11] MEDS: ALBUTEROL SULFATE 2.5 MG/3 ML NEBU NEB SCH ×4 (01:59→20:23)
[2019-10-11] MEDS: PANTOPRAZOLE ORAL SUSPENSION 40 MG SUSPDR.PKT GT SCH ×2 (05:22→17:00)
[2019-10-11 07:50] VITALS: BP 124/64
[2019-10-11] MEDS: ATORVASTATIN 20 MG TABLET GT SCH (08:36)
[2019-10-11] MEDS: ACIDOPHILUS/BULGARICUS CHEW TAB GT SCH ×2 (08:36→20:54)
[2019-10-11] MEDS: ASPIRIN 81 MG TAB.CHEW GT SCH (08:36)
[2019-10-11] MEDS: LOSARTAN POTASSIUM 50 MG TABLET GT SCH (08:36)
[2019-10-11] MEDS: HEPARIN SODIUM,PORCINE 5,000 UNITS/ML VIAL SQ SCH ×2 (08:37→20:56)
[2019-10-11] MEDS: NUTRISOURCE FIBER 4 GM PACKET GT SCH (08:37)
[2019-10-11] MEDS: COD LIVER OIL/ZINC OXIDE OINT 113 GM TUBE TP SCH ×2 (08:37→20:55)
[2019-10-11] MEDS: METOPROLOL TARTRATE 50 MG TABLET GT SCH ×2 (08:37→20:54)
[2019-10-11] MEDS: HYDROGEN PEROXIDE 3% 118 ML BOTTLE TP SCH ×2 (09:00→21:28)
--- NOTE | 2019-10-11 18:00 | NUR ---
SEEN BY DR. GUTIERREZ AND JEFFREYO.
[2019-10-11 20:00] VITALS: BP 112/52
[2019-10-12] MEDS: ALBUTEROL SULFATE 2.5 MG/3 ML NEBU NEB SCH ×4 (01:45→20:27)
[2019-10-12] MEDS: VITAL AF 1.2 1,000 ML LIQUID GT PRN (02:57)
[2019-10-12] MEDS: PANTOPRAZOLE ORAL SUSPENSION 40 MG SUSPDR.PKT GT SCH ×2 (05:33→17:30)
[2019-10-12 08:02] VITALS: BP 121/62
[2019-10-12] MEDS: ASPIRIN 81 MG TAB.CHEW GT SCH (08:15)
[2019-10-12] MEDS: LOSARTAN POTASSIUM 50 MG TABLET GT SCH (08:16)
[2019-10-12] MEDS: ACIDOPHILUS/BULGARICUS CHEW TAB GT SCH ×2 (08:16→21:52)
[2019-10-12] MEDS: ATORVASTATIN 20 MG TABLET GT SCH (08:17)
[2019-10-12 08:18] LABS: BASOPHILS % (AUTO) 0.8 % (0.0-2.0); EOSINOPHILS # (AUTO) 0.4 K/uL (0.0-0.7); EOSINOPHILS % (AUTO) 7.3 % (0.0-7.0); HEMATOCRIT 38.5 % (36.7-47.1); HEMOGLOBIN 12.9 g/dL (12.5-16.3); LYMPHOCYTES # (AUTO) 1.6 K/uL (20.0-40.0); MEAN CORPUSCULAR HEMOGLOBIN 32.3 uug (23.8-33.4); MEAN CORPUSCULAR HGB CONC 34 g/dL (32.5-36.3); MEAN CORPUSCULAR VOLUME 96.2 fL (73.0-96.2); MONOCYTES # (AUTO) 0.4 K/uL (2.0-10.0); MONOCYTES % (AUTO) 7.8 % (0.0-11.0); NEUTROPHILS % (AUTO) 55.1 % (38.5-71.5); PLATELET COUNT (AUTO) 246 K/uL (152-348); WHITE BLOOD COUNT (AUTO) 5.4 K/uL (3.6-10.2)
[2019-10-12] MEDS: METOPROLOL TARTRATE 50 MG TABLET GT SCH ×2 (08:18→21:00)
[2019-10-12] MEDS: NUTRISOURCE FIBER 4 GM PACKET GT SCH (08:19)
[2019-10-12] MEDS: HEPARIN SODIUM,PORCINE 5,000 UNITS/ML VIAL SQ SCH ×2 (08:22→21:00)
[2019-10-12] MEDS: COD LIVER OIL/ZINC OXIDE OINT 113 GM TUBE TP SCH ×2 (08:23→21:54)
[2019-10-12 08:49] LABS: CARBON DIOXIDE 26 mmol/L (21-32); CHLORIDE 98 mmol/L (98-107); CREATININE 0.5 mg/dL (0.6-1.3); GLUCOSE 105 mg/dL (74-106); MAGNESIUM 2.1 mg/dL (1.8-2.4); PHOSPHOROUS 3.7 mg/dL (2.5-4.9); POTASSIUM 4.3 mmol/L (3.5-5.1); UREA NITROGEN, BLOOD 23 mg/dL (7-18)
[2019-10-12] MEDS: HYDROGEN PEROXIDE 3% 118 ML BOTTLE TP SCH ×2 (10:23→21:44)
--- NOTE | 2019-10-12 15:00 | NUR ---
SEEN BY DR.KASHIANI ELIZALDE AND WITH NNO.
[2019-10-12 20:00] VITALS: BP 116/55
[2019-10-12] MEDS: MULTIVIT, IRON, MIN NO. 8, FA TABLET GT SCH (21:54)
[2019-10-13] MEDS: VITAL AF 1.2 1,000 ML LIQUID GT PRN ×2 (00:50→23:20)
[2019-10-13] MEDS: ALBUTEROL SULFATE 2.5 MG/3 ML NEBU NEB SCH ×4 (01:15→19:40)
[2019-10-13] MEDS: PANTOPRAZOLE ORAL SUSPENSION 40 MG SUSPDR.PKT GT SCH ×2 (05:18→17:50)
[2019-10-13 08:03] VITALS: BP 116/61
[2019-10-13] MEDS: HYDROGEN PEROXIDE 3% 118 ML BOTTLE TP SCH ×2 (08:41→21:24)
[2019-10-13] MEDS: LOSARTAN POTASSIUM 50 MG TABLET GT SCH (08:46)
[2019-10-13] MEDS: METOPROLOL TARTRATE 50 MG TABLET GT SCH ×2 (08:46→21:58)
[2019-10-13] MEDS: ACIDOPHILUS/BULGARICUS CHEW TAB GT SCH ×2 (08:46→21:57)
[2019-10-13] MEDS: ASPIRIN 81 MG TAB.CHEW GT SCH (08:46)
[2019-10-13] MEDS: ATORVASTATIN 20 MG TABLET GT SCH (08:46)
[2019-10-13] MEDS: NUTRISOURCE FIBER 4 GM PACKET GT SCH (08:47)
[2019-10-13] MEDS: COD LIVER OIL/ZINC OXIDE OINT 113 GM TUBE TP SCH ×2 (08:47→21:58)
[2019-10-13] MEDS: HEPARIN SODIUM,PORCINE 5,000 UNITS/ML VIAL SQ SCH ×2 (08:49→21:55)
[2019-10-13 20:00] VITALS: BP 123/60
[2019-10-14] MEDS: ALBUTEROL SULFATE 2.5 MG/3 ML NEBU NEB SCH ×4 (01:15→19:53)
[2019-10-14] MEDS: PANTOPRAZOLE ORAL SUSPENSION 40 MG SUSPDR.PKT GT SCH ×2 (05:08→17:29)
[2019-10-14] MEDS: HYDROGEN PEROXIDE 3% 118 ML BOTTLE TP SCH ×2 (07:45→21:08)
[2019-10-14 08:04] VITALS: BP 159/58
[2019-10-14] MEDS: ASPIRIN 81 MG TAB.CHEW GT SCH (08:11)
[2019-10-14] MEDS: ACIDOPHILUS/BULGARICUS CHEW TAB GT SCH ×2 (08:18→21:00)
[2019-10-14] MEDS: LOSARTAN POTASSIUM 50 MG TABLET GT SCH (08:18)
[2019-10-14] MEDS: ATORVASTATIN 20 MG TABLET GT SCH (08:18)
[2019-10-14] MEDS: METOPROLOL TARTRATE 50 MG TABLET GT SCH ×2 (08:19→21:00)
[2019-10-14] MEDS: NUTRISOURCE FIBER 4 GM PACKET GT SCH (08:19)
[2019-10-14] MEDS: HEPARIN SODIUM,PORCINE 5,000 UNITS/ML VIAL SQ SCH ×2 (08:20→21:00)
[2019-10-14] MEDS: COD LIVER OIL/ZINC OXIDE OINT 113 GM TUBE TP SCH ×2 (08:20→21:00)
--- NOTE | 2019-10-14 15:20 | NUR ---
Provided face time to pt. and his son with no problems noted. Kept pt. clean and comfortable no signs of pain or discomfort noted.
[2019-10-14 20:53] VITALS: BP 99/56
[2019-10-14] MEDS: MULTIVIT, IRON, MIN NO. 8, FA TABLET GT SCH (21:00)
[2019-10-15] MEDS: ALBUTEROL SULFATE 2.5 MG/3 ML NEBU NEB SCH ×4 (00:43→20:09)
[2019-10-15] MEDS: VITAL AF 1.2 1,000 ML LIQUID GT PRN (03:54)
[2019-10-15] MEDS: PANTOPRAZOLE ORAL SUSPENSION 40 MG SUSPDR.PKT GT SCH ×2 (05:15→17:47)
[2019-10-15 08:02] VITALS: BP 105/59
[2019-10-15] MEDS: METOPROLOL TARTRATE 50 MG TABLET GT SCH ×2 (09:00→20:41)
[2019-10-15] MEDS: LOSARTAN POTASSIUM 50 MG TABLET GT SCH (09:00)
[2019-10-15] MEDS: ACIDOPHILUS/BULGARICUS CHEW TAB GT SCH ×2 (09:12→20:41)
[2019-10-15] MEDS: ATORVASTATIN 20 MG TABLET GT SCH (09:12)
[2019-10-15] MEDS: ASPIRIN 81 MG TAB.CHEW GT SCH (09:12)
[2019-10-15] MEDS: HEPARIN SODIUM,PORCINE 5,000 UNITS/ML VIAL SQ SCH ×2 (09:17→20:39)
[2019-10-15] MEDS: NUTRISOURCE FIBER 4 GM PACKET GT SCH (09:18)
[2019-10-15] MEDS: COD LIVER OIL/ZINC OXIDE OINT 113 GM TUBE TP SCH ×2 (09:18→20:42)
[2019-10-15] MEDS: HYDROGEN PEROXIDE 3% 118 ML BOTTLE TP SCH ×2 (09:20→20:09)
[2019-10-15 20:43] VITALS: BP 129/58
[2019-10-16] MEDS: VITAL AF 1.2 1,000 ML LIQUID GT PRN ×2 (01:24→23:29)
[2019-10-16] MEDS: ALBUTEROL SULFATE 2.5 MG/3 ML NEBU NEB SCH ×4 (01:44→19:23)
[2019-10-16] MEDS: PANTOPRAZOLE ORAL SUSPENSION 40 MG SUSPDR.PKT GT SCH ×2 (05:05→17:11)
[2019-10-16 07:29] VITALS: BP 140/56
[2019-10-16] MEDS: ASPIRIN 81 MG TAB.CHEW GT SCH (08:29)
[2019-10-16] MEDS: HEPARIN SODIUM,PORCINE 5,000 UNITS/ML VIAL SQ SCH ×2 (08:29→20:44)
[2019-10-16] MEDS: ACIDOPHILUS/BULGARICUS CHEW TAB GT SCH ×2 (08:30→20:45)
[2019-10-16] MEDS: ATORVASTATIN 20 MG TABLET GT SCH (08:30)
[2019-10-16] MEDS: LOSARTAN POTASSIUM 50 MG TABLET GT SCH (08:30)
[2019-10-16] MEDS: METOPROLOL TARTRATE 50 MG TABLET GT SCH ×2 (08:32→20:45)
[2019-10-16] MEDS: COD LIVER OIL/ZINC OXIDE OINT 113 GM TUBE TP SCH ×2 (08:32→20:46)
[2019-10-16] MEDS: NUTRISOURCE FIBER 4 GM PACKET GT SCH (08:32)
[2019-10-16] MEDS: HYDROGEN PEROXIDE 3% 118 ML BOTTLE TP SCH ×2 (09:00→20:41)
[2019-10-16 20:42] VITALS: BP 131/53
[2019-10-16] MEDS: MULTIVIT, IRON, MIN NO. 8, FA TABLET GT SCH (20:46)
[2019-10-17] MEDS: ALBUTEROL SULFATE 2.5 MG/3 ML NEBU NEB SCH ×4 (00:45→19:40)
[2019-10-17] MEDS: PANTOPRAZOLE ORAL SUSPENSION 40 MG SUSPDR.PKT GT SCH ×2 (05:12→17:14)
[2019-10-17] MEDS: ASPIRIN 81 MG TAB.CHEW GT SCH (08:44)
[2019-10-17] MEDS: ATORVASTATIN 20 MG TABLET GT SCH (08:47)
[2019-10-17] MEDS: ACIDOPHILUS/BULGARICUS CHEW TAB GT SCH ×2 (08:47→21:01)
[2019-10-17] MEDS: NUTRISOURCE FIBER 4 GM PACKET GT SCH (08:48)
[2019-10-17] MEDS: METOPROLOL TARTRATE 50 MG TABLET GT SCH ×2 (08:48→21:00)
[2019-10-17] MEDS: LOSARTAN POTASSIUM 50 MG TABLET GT SCH (08:49)
[2019-10-17] MEDS: HEPARIN SODIUM,PORCINE 5,000 UNITS/ML VIAL SQ SCH ×2 (08:50→21:05)
[2019-10-17] MEDS: COD LIVER OIL/ZINC OXIDE OINT 113 GM TUBE TP SCH ×2 (08:50→21:02)
[2019-10-17] MEDS: HYDROGEN PEROXIDE 3% 118 ML BOTTLE TP SCH ×2 (09:00→21:02)
--- NOTE | 2019-10-17 11:00 | NUR ---
Seen and examined by Dr Flores with no new orders noted.
[2019-10-17 20:00] VITALS: BP 109/64
[2019-10-18] MEDS: ALBUTEROL SULFATE 2.5 MG/3 ML NEBU NEB SCH ×4 (01:30→20:05)
[2019-10-18] MEDS: PANTOPRAZOLE ORAL SUSPENSION 40 MG SUSPDR.PKT GT SCH ×2 (06:37→17:05)
[2019-10-18 07:28] VITALS: BP 116/60
[2019-10-18] MEDS: ASPIRIN 81 MG TAB.CHEW GT SCH (08:26)
[2019-10-18] MEDS: ACIDOPHILUS/BULGARICUS CHEW TAB GT SCH ×2 (08:27→20:49)
[2019-10-18] MEDS: METOPROLOL TARTRATE 50 MG TABLET GT SCH ×2 (08:28→20:49)
[2019-10-18] MEDS: ATORVASTATIN 20 MG TABLET GT SCH (08:28)
[2019-10-18] MEDS: LOSARTAN POTASSIUM 50 MG TABLET GT SCH (08:28)
[2019-10-18] MEDS: COD LIVER OIL/ZINC OXIDE OINT 113 GM TUBE TP SCH ×2 (08:29→20:49)
[2019-10-18] MEDS: NUTRISOURCE FIBER 4 GM PACKET GT SCH (08:29)
[2019-10-18] MEDS: HEPARIN SODIUM,PORCINE 5,000 UNITS/ML VIAL SQ SCH ×2 (08:29→21:00)
[2019-10-18] MEDS: HYDROGEN PEROXIDE 3% 118 ML BOTTLE TP SCH ×2 (09:00→21:32)
[2019-10-18 20:00] VITALS: BP 122/63
[2019-10-18] MEDS: MULTIVIT, IRON, MIN NO. 8, FA TABLET GT SCH (20:49)
[2019-10-19] MEDS: ALBUTEROL SULFATE 2.5 MG/3 ML NEBU NEB SCH ×4 (01:38→20:45)
[2019-10-19] MEDS: PANTOPRAZOLE ORAL SUSPENSION 40 MG SUSPDR.PKT GT SCH ×2 (05:10→17:23)
[2019-10-19 07:42] VITALS: BP 131/73
[2019-10-19] MEDS: ASPIRIN 81 MG TAB.CHEW GT SCH (08:04)
[2019-10-19] MEDS: ATORVASTATIN 20 MG TABLET GT SCH (08:08)
[2019-10-19] MEDS: LOSARTAN POTASSIUM 50 MG TABLET GT SCH (08:08)
[2019-10-19] MEDS: METOPROLOL TARTRATE 50 MG TABLET GT SCH ×2 (08:08→20:41)
[2019-10-19] MEDS: ACIDOPHILUS/BULGARICUS CHEW TAB GT SCH ×2 (08:08→20:41)
[2019-10-19] MEDS: NUTRISOURCE FIBER 4 GM PACKET GT SCH (08:08)
[2019-10-19] MEDS: COD LIVER OIL/ZINC OXIDE OINT 113 GM TUBE TP SCH ×2 (08:09→20:41)
[2019-10-19] MEDS: HEPARIN SODIUM,PORCINE 5,000 UNITS/ML VIAL SQ SCH ×2 (08:09→20:49)
[2019-10-19] MEDS: VITAL AF 1.2 1,000 ML LIQUID GT PRN (08:17)
[2019-10-19] MEDS: HYDROGEN PEROXIDE 3% 118 ML BOTTLE TP SCH ×2 (08:18→21:00)
[2019-10-19 22:03] VITALS: BP 105/57
[2019-10-20] MEDS: ALBUTEROL SULFATE 2.5 MG/3 ML NEBU NEB SCH ×4 (01:35→19:35)
[2019-10-20] MEDS: PANTOPRAZOLE ORAL SUSPENSION 40 MG SUSPDR.PKT GT SCH ×2 (05:14→17:24)
[2019-10-20 07:54] VITALS: BP 112/46
[2019-10-20] MEDS: ASPIRIN 81 MG TAB.CHEW GT SCH (08:56)
[2019-10-20] MEDS: ACIDOPHILUS/BULGARICUS CHEW TAB GT SCH ×2 (08:58→21:54)
[2019-10-20] MEDS: LOSARTAN POTASSIUM 50 MG TABLET GT SCH (08:58)
[2019-10-20] MEDS: HYDROGEN PEROXIDE 3% 118 ML BOTTLE TP SCH ×2 (09:00→19:35)
[2019-10-20] MEDS: METOPROLOL TARTRATE 50 MG TABLET GT SCH ×2 (09:00→21:00)
[2019-10-20] MEDS: ATORVASTATIN 20 MG TABLET GT SCH (09:01)
[2019-10-20] MEDS: NUTRISOURCE FIBER 4 GM PACKET GT SCH (09:02)
[2019-10-20] MEDS: HEPARIN SODIUM,PORCINE 5,000 UNITS/ML VIAL SQ SCH ×2 (09:03→22:08)
[2019-10-20] MEDS: COD LIVER OIL/ZINC OXIDE OINT 113 GM TUBE TP SCH ×2 (09:03→21:54)
[2019-10-20] MEDS: VITAL AF 1.2 1,000 ML LIQUID GT PRN (14:28)
[2019-10-20 20:03] VITALS: BP 140/53
[2019-10-20] MEDS: MULTIVIT, IRON, MIN NO. 8, FA TABLET GT SCH (21:54)
[2019-10-21] MEDS: ALBUTEROL SULFATE 2.5 MG/3 ML NEBU NEB SCH ×4 (00:56→20:11)
[2019-10-21] MEDS: PANTOPRAZOLE ORAL SUSPENSION 40 MG SUSPDR.PKT GT SCH ×2 (05:11→17:19)
[2019-10-21 08:05] VITALS: BP 130/65
[2019-10-21] MEDS: ASPIRIN 81 MG TAB.CHEW GT SCH (08:24)
[2019-10-21] MEDS: ACIDOPHILUS/BULGARICUS CHEW TAB GT SCH ×2 (08:25→21:00)
[2019-10-21] MEDS: LOSARTAN POTASSIUM 50 MG TABLET GT SCH (08:25)
[2019-10-21] MEDS: METOPROLOL TARTRATE 50 MG TABLET GT SCH ×2 (08:26→21:00)
[2019-10-21] MEDS: ATORVASTATIN 20 MG TABLET GT SCH (08:27)
[2019-10-21] MEDS: HEPARIN SODIUM,PORCINE 5,000 UNITS/ML VIAL SQ SCH ×2 (08:29→21:00)
[2019-10-21] MEDS: NUTRISOURCE FIBER 4 GM PACKET GT SCH (08:37)
[2019-10-21] MEDS: HYDROGEN PEROXIDE 3% 118 ML BOTTLE TP SCH ×2 (08:38→21:14)
[2019-10-21] MEDS: COD LIVER OIL/ZINC OXIDE OINT 113 GM TUBE TP SCH ×2 (08:38→21:00)
[2019-10-21] MEDS: VITAL AF 1.2 1,000 ML LIQUID GT PRN (13:39)
[2019-10-21 20:08] VITALS: BP 112/60
[2019-10-22] MEDS: ALBUTEROL SULFATE 2.5 MG/3 ML NEBU NEB SCH ×4 (01:38→19:41)
[2019-10-22] MEDS: PANTOPRAZOLE ORAL SUSPENSION 40 MG SUSPDR.PKT GT SCH ×2 (06:43→17:03)
[2019-10-22 07:29] VITALS: BP 137/56
[2019-10-22] MEDS: ASPIRIN 81 MG TAB.CHEW GT SCH (08:33)
[2019-10-22] MEDS: LOSARTAN POTASSIUM 50 MG TABLET GT SCH (08:34)
[2019-10-22] MEDS: ATORVASTATIN 20 MG TABLET GT SCH (08:35)
[2019-10-22] MEDS: ACIDOPHILUS/BULGARICUS CHEW TAB GT SCH ×2 (08:35→21:04)
[2019-10-22] MEDS: METOPROLOL TARTRATE 50 MG TABLET GT SCH ×2 (08:36→21:00)
[2019-10-22] MEDS: NUTRISOURCE FIBER 4 GM PACKET GT SCH (08:36)
[2019-10-22] MEDS: HEPARIN SODIUM,PORCINE 5,000 UNITS/ML VIAL SQ SCH ×2 (08:37→21:00)
[2019-10-22] MEDS: COD LIVER OIL/ZINC OXIDE OINT 113 GM TUBE TP SCH ×2 (08:37→21:05)
[2019-10-22] MEDS: HYDROGEN PEROXIDE 3% 118 ML BOTTLE TP SCH ×2 (08:59→21:05)
--- NOTE | 2019-10-22 11:30 | NUR ---
Seen by Rosie BEST with no new order.
--- NOTE | 2019-10-22 12:00 | NUR ---
Seen by Yasmeen Lunsford with no new order.
[2019-10-22 20:25] VITALS: BP 123/60
[2019-10-22] MEDS: MULTIVIT, IRON, MIN NO. 8, FA TABLET GT SCH (21:04)
[2019-10-23] MEDS: ALBUTEROL SULFATE 2.5 MG/3 ML NEBU NEB SCH ×4 (01:20→19:18)
[2019-10-23] MEDS: PANTOPRAZOLE ORAL SUSPENSION 40 MG SUSPDR.PKT GT SCH ×2 (05:48→18:03)
[2019-10-23 06:43] LABS: BASOPHILS % (AUTO) 0.9 % (0.0-2.0); EOSINOPHILS # (AUTO) 0.5 K/uL (0.0-0.7); EOSINOPHILS % (AUTO) 8.9 % (0.0-7.0); HEMATOCRIT 39.1 % (36.7-47.1); HEMOGLOBIN 13.4 g/dL (12.5-16.3); LYMPHOCYTES # (AUTO) 1.7 K/uL (20.0-40.0); LYMPHOCYTES % (AUTO) 33.1 % (20.5-51.5); MEAN CORPUSCULAR HEMOGLOBIN 32.8 uug (23.8-33.4); MEAN CORPUSCULAR HGB CONC 34 g/dL (32.5-36.3); MEAN CORPUSCULAR VOLUME 95.7 fL (73.0-96.2); MONOCYTES # (AUTO) 0.4 K/uL (2.0-10.0); MONOCYTES % (AUTO) 8.4 % (0.0-11.0); NEUTROPHILS # (AUTO) 2.5 K/uL (1.8-8.9); NEUTROPHILS % (AUTO) 48.7 % (38.5-71.5); PLATELET COUNT (AUTO) 237 K/uL (152-348); RED BLOOD CELL COUNT(AUTO) 4.08 MIL/uL (4.06-5.63); WHITE BLOOD COUNT (AUTO) 5.1 K/uL (3.6-10.2)
[2019-10-23 07:08] LABS: CARBON DIOXIDE 27 mmol/L (21-32); CHLORIDE 98 mmol/L (98-107); CREATININE 0.8 mg/dL (0.6-1.3); GLUCOSE 119 mg/dL (74-106); MAGNESIUM 2.1 mg/dL (1.8-2.4); UREA NITROGEN, BLOOD 20 mg/dL (7-18)
[2019-10-23 07:15] VITALS: BP 114/50
[2019-10-23] MEDS: HYDROGEN PEROXIDE 3% 118 ML BOTTLE TP SCH ×2 (07:16→20:01)
[2019-10-23] MEDS: ATORVASTATIN 20 MG TABLET GT SCH (08:15)
[2019-10-23] MEDS: NUTRISOURCE FIBER 4 GM PACKET GT SCH (08:15)
[2019-10-23] MEDS: ASPIRIN 81 MG TAB.CHEW GT SCH (08:15)
[2019-10-23] MEDS: ACIDOPHILUS/BULGARICUS CHEW TAB GT SCH ×2 (08:15→20:39)
[2019-10-23] MEDS: METOPROLOL TARTRATE 50 MG TABLET GT SCH ×2 (08:16→20:40)
[2019-10-23] MEDS: HEPARIN SODIUM,PORCINE 5,000 UNITS/ML VIAL SQ SCH ×2 (08:18→20:41)
[2019-10-23] MEDS: LOSARTAN POTASSIUM 50 MG TABLET GT SCH (08:19)
[2019-10-23] MEDS: COD LIVER OIL/ZINC OXIDE OINT 113 GM TUBE TP SCH ×2 (08:19→20:40)
[2019-10-23] MEDS: VITAL AF 1.2 1,000 ML LIQUID GT PRN (11:20)
--- NOTE | 2019-10-23 14:04 | NUR ---
SW emailed patient's son Reji, daughter Marina, and [id number] Gin and informed them that the next IDT meeting for the patient has been scheduled for 10/30/19 at 11am. SW asked them to email this SW back and let SW know if either one of them want to participate in the IDT meeting via speaker phone.
[2019-10-23 20:36] VITALS: BP 120/69
[2019-10-24] MEDS: ALBUTEROL SULFATE 2.5 MG/3 ML NEBU NEB SCH ×4 (01:05→19:05)
[2019-10-24] MEDS: PANTOPRAZOLE ORAL SUSPENSION 40 MG SUSPDR.PKT GT SCH ×2 (05:30→18:09)
[2019-10-24] MEDS: HYDROGEN PEROXIDE 3% 118 ML BOTTLE TP SCH ×2 (07:31→21:05)
[2019-10-24 07:34] VITALS: BP 119/53
[2019-10-24] MEDS: LOSARTAN POTASSIUM 50 MG TABLET GT SCH (09:00)
[2019-10-24] MEDS: METOPROLOL TARTRATE 50 MG TABLET GT SCH ×2 (09:00→21:00)
[2019-10-24] MEDS: ASPIRIN 81 MG TAB.CHEW GT SCH (09:49)
[2019-10-24] MEDS: ATORVASTATIN 20 MG TABLET GT SCH (09:50)
[2019-10-24] MEDS: ACIDOPHILUS/BULGARICUS CHEW TAB GT SCH ×2 (09:50→21:06)
[2019-10-24] MEDS: COD LIVER OIL/ZINC OXIDE OINT 113 GM TUBE TP SCH ×2 (09:51→21:11)
[2019-10-24] MEDS: NUTRISOURCE FIBER 4 GM PACKET GT SCH (09:51)
[2019-10-24] MEDS: HEPARIN SODIUM,PORCINE 5,000 UNITS/ML VIAL SQ SCH ×2 (09:53→21:11)
--- NOTE | 2019-10-24 10:00 | NUR ---
Seen and examined by Dr Sanchez,no new orders.
[2019-10-24 20:42] VITALS: BP 132/67
[2019-10-24] MEDS: MULTIVIT, IRON, MIN NO. 8, FA TABLET GT SCH (21:09)
[2019-10-25] MEDS: ALBUTEROL SULFATE 2.5 MG/3 ML NEBU NEB SCH ×4 (01:14→19:55)
[2019-10-25] MEDS: PANTOPRAZOLE ORAL SUSPENSION 40 MG SUSPDR.PKT GT SCH ×2 (05:09→17:58)
[2019-10-25 07:27] VITALS: BP 121/76
[2019-10-25] MEDS: ASPIRIN 81 MG TAB.CHEW GT SCH (08:19)
[2019-10-25] MEDS: HEPARIN SODIUM,PORCINE 5,000 UNITS/ML VIAL SQ SCH ×2 (08:19→20:40)
[2019-10-25] MEDS: ACIDOPHILUS/BULGARICUS CHEW TAB GT SCH ×2 (08:20→20:37)
[2019-10-25] MEDS: ATORVASTATIN 20 MG TABLET GT SCH (08:20)
[2019-10-25] MEDS: LOSARTAN POTASSIUM 50 MG TABLET GT SCH (08:20)
[2019-10-25] MEDS: METOPROLOL TARTRATE 50 MG TABLET GT SCH ×2 (08:21→20:38)
[2019-10-25] MEDS: COD LIVER OIL/ZINC OXIDE OINT 113 GM TUBE TP SCH ×2 (08:21→20:40)
[2019-10-25] MEDS: NUTRISOURCE FIBER 4 GM PACKET GT SCH (08:21)
[2019-10-25] MEDS: HYDROGEN PEROXIDE 3% 118 ML BOTTLE TP SCH ×2 (10:00→20:51)
--- NOTE | 2019-10-25 14:29 | NUR ---
GUTIERREZ sent patient's daughter Marina, son Reji, and [id number] Gin an email informing them that effective October 25, video chats with the patient will be done through [employer].
[2019-10-25 20:41] VITALS: BP 128/69
[2019-10-26] MEDS: ALBUTEROL SULFATE 2.5 MG/3 ML NEBU NEB SCH ×4 (01:22→19:11)
[2019-10-26] MEDS: PANTOPRAZOLE ORAL SUSPENSION 40 MG SUSPDR.PKT GT SCH ×2 (05:19→17:08)
[2019-10-26 07:30] VITALS: BP 137/74
[2019-10-26] MEDS: ASPIRIN 81 MG TAB.CHEW GT SCH (08:47)
[2019-10-26] MEDS: LOSARTAN POTASSIUM 50 MG TABLET GT SCH (08:47)
[2019-10-26] MEDS: METOPROLOL TARTRATE 50 MG TABLET GT SCH ×2 (08:47→20:49)
[2019-10-26] MEDS: NUTRISOURCE FIBER 4 GM PACKET GT SCH (08:47)
[2019-10-26] MEDS: ATORVASTATIN 20 MG TABLET GT SCH (08:47)
[2019-10-26] MEDS: ACIDOPHILUS/BULGARICUS CHEW TAB GT SCH ×2 (08:47→20:49)
[2019-10-26] MEDS: COD LIVER OIL/ZINC OXIDE OINT 113 GM TUBE TP SCH ×2 (08:48→20:52)
[2019-10-26] MEDS: HYDROGEN PEROXIDE 3% 118 ML BOTTLE TP SCH ×2 (08:48→19:11)
[2019-10-26] MEDS: HEPARIN SODIUM,PORCINE 5,000 UNITS/ML VIAL SQ SCH ×2 (08:48→20:51)
[2019-10-26 20:00] VITALS: BP 101/58
[2019-10-26] MEDS: MULTIVIT, IRON, MIN NO. 8, FA TABLET GT SCH (20:50)
[2019-10-27] MEDS: ALBUTEROL SULFATE 2.5 MG/3 ML NEBU NEB SCH ×4 (01:30→19:22)
[2019-10-27] MEDS: VITAL AF 1.2 1,000 ML LIQUID GT PRN (02:31)
[2019-10-27] MEDS: PANTOPRAZOLE ORAL SUSPENSION 40 MG SUSPDR.PKT GT SCH ×2 (05:31→17:42)
[2019-10-27] MEDS: HYDROGEN PEROXIDE 3% 118 ML BOTTLE TP SCH ×2 (07:11→21:38)
[2019-10-27 07:35] VITALS: BP 116/60
[2019-10-27] MEDS: ASPIRIN 81 MG TAB.CHEW GT SCH (08:17)
[2019-10-27] MEDS: LOSARTAN POTASSIUM 50 MG TABLET GT SCH (08:18)
[2019-10-27] MEDS: ACIDOPHILUS/BULGARICUS CHEW TAB GT SCH ×2 (08:18→20:52)
[2019-10-27] MEDS: HEPARIN SODIUM,PORCINE 5,000 UNITS/ML VIAL SQ SCH ×2 (08:18→20:53)
[2019-10-27] MEDS: METOPROLOL TARTRATE 50 MG TABLET GT SCH ×2 (08:18→20:52)
[2019-10-27] MEDS: NUTRISOURCE FIBER 4 GM PACKET GT SCH (08:18)
[2019-10-27] MEDS: COD LIVER OIL/ZINC OXIDE OINT 113 GM TUBE TP SCH ×2 (08:18→20:52)
[2019-10-27] MEDS: ATORVASTATIN 20 MG TABLET GT SCH (08:18)
[2019-10-27 20:20] VITALS: BP 131/60
[2019-10-28] MEDS: ALBUTEROL SULFATE 2.5 MG/3 ML NEBU NEB SCH ×4 (01:09→20:05)
[2019-10-28] MEDS: PANTOPRAZOLE ORAL SUSPENSION 40 MG SUSPDR.PKT GT SCH ×2 (05:23→17:29)
[2019-10-28 07:54] VITALS: BP 129/44
[2019-10-28] MEDS: HEPARIN SODIUM,PORCINE 5,000 UNITS/ML VIAL SQ SCH ×2 (08:26→20:26)
[2019-10-28] MEDS: LOSARTAN POTASSIUM 50 MG TABLET GT SCH (08:26)
[2019-10-28] MEDS: ASPIRIN 81 MG TAB.CHEW GT SCH (08:26)
[2019-10-28] MEDS: ACIDOPHILUS/BULGARICUS CHEW TAB GT SCH ×2 (08:26→20:28)
[2019-10-28] MEDS: ATORVASTATIN 20 MG TABLET GT SCH (08:26)
[2019-10-28] MEDS: COD LIVER OIL/ZINC OXIDE OINT 113 GM TUBE TP SCH ×2 (08:27→20:29)
[2019-10-28] MEDS: METOPROLOL TARTRATE 50 MG TABLET GT SCH ×2 (08:27→20:28)
[2019-10-28] MEDS: NUTRISOURCE FIBER 4 GM PACKET GT SCH (08:27)
[2019-10-28] MEDS: HYDROGEN PEROXIDE 3% 118 ML BOTTLE TP SCH ×2 (09:00→21:38)
[2019-10-28] MEDS: VITAL AF 1.2 1,000 ML LIQUID GT PRN (13:10)
[2019-10-28] MEDS: MULTIVIT, IRON, MIN NO. 8, FA TABLET GT SCH (20:29)
[2019-10-28 22:51] VITALS: BP 116/74
[2019-10-29] MEDS: ALBUTEROL SULFATE 2.5 MG/3 ML NEBU NEB SCH ×4 (01:32→19:48)
[2019-10-29] MEDS: PANTOPRAZOLE ORAL SUSPENSION 40 MG SUSPDR.PKT GT SCH ×2 (05:26→17:41)
[2019-10-29] MEDS: VITAL AF 1.2 1,000 ML LIQUID GT PRN (06:48)
[2019-10-29 07:34] VITALS: BP 137/58
[2019-10-29] MEDS: LOSARTAN POTASSIUM 50 MG TABLET GT SCH (09:00)
[2019-10-29] MEDS: ASPIRIN 81 MG TAB.CHEW GT SCH (09:00)
[2019-10-29] MEDS: HYDROGEN PEROXIDE 3% 118 ML BOTTLE TP SCH ×2 (09:00→20:55)
[2019-10-29] MEDS: HEPARIN SODIUM,PORCINE 5,000 UNITS/ML VIAL SQ SCH ×2 (09:00→21:00)
[2019-10-29] MEDS: COD LIVER OIL/ZINC OXIDE OINT 113 GM TUBE TP SCH ×2 (09:00→21:04)
[2019-10-29] MEDS: ACIDOPHILUS/BULGARICUS CHEW TAB GT SCH ×2 (09:00→21:03)
[2019-10-29] MEDS: METOPROLOL TARTRATE 50 MG TABLET GT SCH ×2 (09:00→21:00)
[2019-10-29] MEDS: ATORVASTATIN 20 MG TABLET GT SCH (09:00)
[2019-10-29] MEDS: NUTRISOURCE FIBER 4 GM PACKET GT SCH (09:00)
--- NOTE | 2019-10-29 12:00 | NUR ---
SEEN BY ENOCH Reyes AND WITH NNO.
[2019-10-29 20:00] VITALS: BP 109/67
[2019-10-30] MEDS: ALBUTEROL SULFATE 2.5 MG/3 ML NEBU NEB SCH ×5 (00:51→19:10)
[2019-10-30] MEDS: VITAL AF 1.2 1,000 ML LIQUID GT PRN (02:06)
[2019-10-30] MEDS: PANTOPRAZOLE ORAL SUSPENSION 40 MG SUSPDR.PKT GT SCH ×2 (05:11→18:31)
[2019-10-30 07:30] VITALS: BP 132/51
[2019-10-30] MEDS: ATORVASTATIN 20 MG TABLET GT SCH (08:47)
[2019-10-30] MEDS: ASPIRIN 81 MG TAB.CHEW GT SCH (08:47)
[2019-10-30] MEDS: ACIDOPHILUS/BULGARICUS CHEW TAB GT SCH ×2 (08:47→21:35)
[2019-10-30] MEDS: LOSARTAN POTASSIUM 50 MG TABLET GT SCH (08:47)
[2019-10-30] MEDS: METOPROLOL TARTRATE 50 MG TABLET GT SCH ×2 (08:48→21:36)
[2019-10-30] MEDS: NUTRISOURCE FIBER 4 GM PACKET GT SCH (08:48)
[2019-10-30] MEDS: COD LIVER OIL/ZINC OXIDE OINT 113 GM TUBE TP SCH ×2 (08:48→21:37)
[2019-10-30] MEDS: HEPARIN SODIUM,PORCINE 5,000 UNITS/ML VIAL SQ SCH ×2 (08:49→21:38)
[2019-10-30] MEDS: HYDROGEN PEROXIDE 3% 118 ML BOTTLE TP SCH ×2 (08:50→21:18)
--- NOTE | 2019-10-30 10:24 | NUR ---
SW received an email from patient's [id number] Gin stating that she would like to be participate in the IDT meeting today, via speaker phone. SW to call Gin during the meeting time.
--- NOTE | 2019-10-30 12:58 | NUR ---
INTERDISCIPLINARY PLAN OF CARE CONFERENCE was held today. Patient's [id number] Gin participated in the meeting via speaker phone. Dr. Leary and the Interdisciplinary Team reviewed the current plan of care in detail. RN reported on patient's current medical condition and findings of most recent labs. No major changes in condition were reported. See RN IDT conference notes. See all also other disciplines IDT notes and physician's progress notes for additional details. Gin stated not having any questions or concerns at this time, and expressed being content with the current plan of care.
--- NOTE | 2019-10-30 15:12 | NUR ---
Pharmacy Update from Today's 10/30/19 IDT meeting VS: Temp 97.6 BP 132/51 HR 52 LABS: (from 10/23/19) Wbc 5.1 H/H 13.4/39.1 Plt 237 Na 132 K 4.0 Cl 98 CO2 27 BUN/SCr 20/0.8 BS 119 Ca 9.2 Phos 4.0 Mg 2.1 MEDICATION USE REVIEWED: > Pt not on any anti-psych medications or anti-seizure medications > Pt on heparin 5000units q12hr. Last plt 237, dosing appropriate for renal fxn. No bleeding noted > Pt on BP meds with hold parameters, well controlled, last BP wnl Cozaar 50mg daily (hold SBP <120), Lopressor 50mg q12hr (hold SBP <110 or HR <60) Note: (DF) does not want to d/c or change current BP medications d/t patient's CAD and PMH of intraventricular hemorrhage/embolism despite episodes of low BP. Patient's BP is well controlled with hold parameters at this time. >PRN MED USAGE (September) Tylenol for pain used x 0 Tylenol for temp used x 0 Artificial tears used x 3 NEW ORDERS NOTED: > NA Patient reviewed and discussed in depth with no medication issues or changes noted per staff. Family in attendance via phone conference (d/t covid regulations) with no medication concerns at this time as well. No further recommendations per rx as pt remains stable on current regimen. Will continue to follow
[2019-10-30 20:39] VITALS: BP 125/55
[2019-10-30] MEDS: MULTIVIT, IRON, MIN NO. 8, FA TABLET GT SCH (21:36)
[2019-10-31] MEDS: ALBUTEROL SULFATE 2.5 MG/3 ML NEBU NEB SCH ×4 (02:20→19:28)
[2019-10-31] MEDS: VITAL AF 1.2 1,000 ML LIQUID GT PRN (03:01)
[2019-10-31] MEDS: PANTOPRAZOLE ORAL SUSPENSION 40 MG SUSPDR.PKT GT SCH ×2 (06:01→18:06)
[2019-10-31 07:40] VITALS: BP 112/62
[2019-10-31] MEDS: HYDROGEN PEROXIDE 3% 118 ML BOTTLE TP SCH ×2 (08:19→21:47)
[2019-10-31] MEDS: LOSARTAN POTASSIUM 50 MG TABLET GT SCH (09:00)
[2019-10-31] MEDS: METOPROLOL TARTRATE 50 MG TABLET GT SCH ×2 (09:00→21:00)
[2019-10-31] MEDS: ASPIRIN 81 MG TAB.CHEW GT SCH (09:05)
[2019-10-31] MEDS: ACIDOPHILUS/BULGARICUS CHEW TAB GT SCH ×2 (09:10→21:00)
[2019-10-31] MEDS: ATORVASTATIN 20 MG TABLET GT SCH (09:11)
[2019-10-31] MEDS: NUTRISOURCE FIBER 4 GM PACKET GT SCH (09:12)
[2019-10-31] MEDS: COD LIVER OIL/ZINC OXIDE OINT 113 GM TUBE TP SCH ×2 (09:15→21:00)
[2019-10-31] MEDS: HEPARIN SODIUM,PORCINE 5,000 UNITS/ML VIAL SQ SCH ×2 (09:15→21:00)
[2019-10-31 20:00] VITALS: BP 132/64
[2019-11-01] MEDS: ALBUTEROL SULFATE 2.5 MG/3 ML NEBU NEB SCH ×4 (01:42→20:09)
[2019-11-01] MEDS: VITAL AF 1.2 1,000 ML LIQUID GT PRN (02:16)
[2019-11-01] MEDS: PANTOPRAZOLE ORAL SUSPENSION 40 MG SUSPDR.PKT GT SCH ×2 (06:25→17:07)
[2019-11-01] MEDS: HYDROGEN PEROXIDE 3% 118 ML BOTTLE TP SCH ×2 (07:10→22:00)
[2019-11-01 07:37] VITALS: BP 112/60
[2019-11-01] MEDS: ASPIRIN 81 MG TAB.CHEW GT SCH (08:31)
[2019-11-01] MEDS: ACIDOPHILUS/BULGARICUS CHEW TAB GT SCH ×2 (08:32→20:22)
[2019-11-01] MEDS: LOSARTAN POTASSIUM 50 MG TABLET GT SCH (08:32)
[2019-11-01] MEDS: ATORVASTATIN 20 MG TABLET GT SCH (08:32)
[2019-11-01] MEDS: NUTRISOURCE FIBER 4 GM PACKET GT SCH (08:33)
[2019-11-01] MEDS: METOPROLOL TARTRATE 50 MG TABLET GT SCH ×2 (08:33→20:23)
[2019-11-01] MEDS: HEPARIN SODIUM,PORCINE 5,000 UNITS/ML VIAL SQ SCH ×2 (08:38→20:31)
[2019-11-01] MEDS: COD LIVER OIL/ZINC OXIDE OINT 113 GM TUBE TP SCH ×2 (08:38→20:23)
[2019-11-01 20:23] VITALS: BP 126/66
[2019-11-01] MEDS: MULTIVIT, IRON, MIN NO. 8, FA TABLET GT SCH (20:23)
[2019-11-02] MEDS: VITAL AF 1.2 1,000 ML LIQUID GT PRN (01:25)
[2019-11-02] MEDS: ALBUTEROL SULFATE 2.5 MG/3 ML NEBU NEB SCH ×4 (01:36→19:57)
[2019-11-02] MEDS: PANTOPRAZOLE ORAL SUSPENSION 40 MG SUSPDR.PKT GT SCH ×2 (05:49→17:58)
[2019-11-02 07:39] VITALS: BP 124/46
[2019-11-02] MEDS: ASPIRIN 81 MG TAB.CHEW GT SCH (08:37)
[2019-11-02] MEDS: ACIDOPHILUS/BULGARICUS CHEW TAB GT SCH ×2 (08:38→20:23)
[2019-11-02] MEDS: LOSARTAN POTASSIUM 50 MG TABLET GT SCH (08:38)
[2019-11-02] MEDS: ATORVASTATIN 20 MG TABLET GT SCH (08:38)
[2019-11-02] MEDS: NUTRISOURCE FIBER 4 GM PACKET GT SCH (08:39)
[2019-11-02] MEDS: METOPROLOL TARTRATE 50 MG TABLET GT SCH ×2 (08:39→20:23)
[2019-11-02] MEDS: COD LIVER OIL/ZINC OXIDE OINT 113 GM TUBE TP SCH ×2 (08:41→20:24)
[2019-11-02] MEDS: HEPARIN SODIUM,PORCINE 5,000 UNITS/ML VIAL SQ SCH ×2 (08:41→21:56)
[2019-11-02] MEDS: HYDROGEN PEROXIDE 3% 118 ML BOTTLE TP SCH ×2 (09:00→21:07)
[2019-11-03] VITALS: BP 117/58
[2019-11-03] MEDS: VITAL AF 1.2 1,000 ML LIQUID GT PRN (01:51)
[2019-11-03] MEDS: ALBUTEROL SULFATE 2.5 MG/3 ML NEBU NEB SCH ×4 (01:58→20:00)
[2019-11-03] MEDS: PANTOPRAZOLE ORAL SUSPENSION 40 MG SUSPDR.PKT GT SCH ×2 (05:31→17:32)
[2019-11-03] MEDS: HYDROGEN PEROXIDE 3% 118 ML BOTTLE TP SCH ×2 (07:05→20:00)
[2019-11-03] MEDS: ASPIRIN 81 MG TAB.CHEW GT SCH (09:02)
[2019-11-03] MEDS: LOSARTAN POTASSIUM 50 MG TABLET GT SCH (09:03)
[2019-11-03] MEDS: ACIDOPHILUS/BULGARICUS CHEW TAB GT SCH ×2 (09:03→20:25)
[2019-11-03] MEDS: ATORVASTATIN 20 MG TABLET GT SCH (09:03)
[2019-11-03] MEDS: METOPROLOL TARTRATE 50 MG TABLET GT SCH ×2 (09:04→20:27)
[2019-11-03] MEDS: NUTRISOURCE FIBER 4 GM PACKET GT SCH (09:04)
[2019-11-03] MEDS: HEPARIN SODIUM,PORCINE 5,000 UNITS/ML VIAL SQ SCH ×2 (09:05→20:25)
[2019-11-03] MEDS: COD LIVER OIL/ZINC OXIDE OINT 113 GM TUBE TP SCH ×2 (09:06→20:28)
[2019-11-03] MEDS: MULTIVIT, IRON, MIN NO. 8, FA TABLET GT SCH (20:28)
[2019-11-03 22:07] VITALS: BP 108/53
[2019-11-04] MEDS: VITAL AF 1.2 1,000 ML LIQUID GT PRN (00:59)
[2019-11-04] MEDS: ALBUTEROL SULFATE 2.5 MG/3 ML NEBU NEB SCH ×4 (01:41→20:09)
[2019-11-04] MEDS: PANTOPRAZOLE ORAL SUSPENSION 40 MG SUSPDR.PKT GT SCH ×2 (05:51→17:56)
[2019-11-04 07:56] VITALS: BP 117/45
[2019-11-04] MEDS: LOSARTAN POTASSIUM 50 MG TABLET GT SCH (09:00)
[2019-11-04] MEDS: METOPROLOL TARTRATE 50 MG TABLET GT SCH ×2 (09:00→20:41)
[2019-11-04] MEDS: ASPIRIN 81 MG TAB.CHEW GT SCH (09:20)
[2019-11-04] MEDS: ACIDOPHILUS/BULGARICUS CHEW TAB GT SCH ×2 (09:23→20:41)
[2019-11-04] MEDS: NUTRISOURCE FIBER 4 GM PACKET GT SCH (09:24)
[2019-11-04] MEDS: COD LIVER OIL/ZINC OXIDE OINT 113 GM TUBE TP SCH ×2 (09:27→20:42)
[2019-11-04] MEDS: HEPARIN SODIUM,PORCINE 5,000 UNITS/ML VIAL SQ SCH ×2 (09:27→20:34)
[2019-11-04] MEDS: HYDROGEN PEROXIDE 3% 118 ML BOTTLE TP SCH ×2 (09:50→21:14)
[2019-11-04] MEDS: ATORVASTATIN 20 MG TABLET GT SCH (20:41)
[2019-11-04 23:20] VITALS: BP 120/59
[2019-11-05] MEDS: ALBUTEROL SULFATE 2.5 MG/3 ML NEBU NEB SCH ×4 (01:05→20:07)
[2019-11-05] MEDS: VITAL AF 1.2 1,000 ML LIQUID GT PRN (03:32)
[2019-11-05] MEDS: PANTOPRAZOLE ORAL SUSPENSION 40 MG SUSPDR.PKT GT SCH ×2 (05:55→17:30)
[2019-11-05 08:07] VITALS: BP 103/73
[2019-11-05] MEDS: ASPIRIN 81 MG TAB.CHEW GT SCH (08:25)
[2019-11-05] MEDS: ACIDOPHILUS/BULGARICUS CHEW TAB GT SCH ×2 (08:25→20:35)
[2019-11-05] MEDS: HEPARIN SODIUM,PORCINE 5,000 UNITS/ML VIAL SQ SCH ×2 (08:26→20:29)
[2019-11-05] MEDS: NUTRISOURCE FIBER 4 GM PACKET GT SCH (08:26)
[2019-11-05] MEDS: METOPROLOL TARTRATE 50 MG TABLET GT SCH ×2 (08:27→20:36)
[2019-11-05] MEDS: LOSARTAN POTASSIUM 50 MG TABLET GT SCH (08:27)
[2019-11-05] MEDS: HYDROGEN PEROXIDE 3% 118 ML BOTTLE TP SCH ×2 (08:27→20:07)
[2019-11-05] MEDS: COD LIVER OIL/ZINC OXIDE OINT 113 GM TUBE TP SCH ×2 (08:29→20:37)
--- NOTE | 2019-11-05 10:54 | NUR ---
Seen by Yasmeen Lunsford, with no new order.
--- NOTE | 2019-11-05 13:15 | NUR ---
VIDEO CHAT DONE WITH PATIENT'S DAUGHTER LISA.
[2019-11-05 20:03] VITALS: BP 131/60
[2019-11-05] MEDS: ATORVASTATIN 20 MG TABLET GT SCH (20:36)
[2019-11-05] MEDS: MULTIVIT, IRON, MIN NO. 8, FA TABLET GT SCH (20:37)
[2019-11-06] MEDS: ALBUTEROL SULFATE 2.5 MG/3 ML NEBU NEB SCH ×4 (02:08→19:03)
[2019-11-06] MEDS: VITAL AF 1.2 1,000 ML LIQUID GT PRN (03:32)
[2019-11-06] MEDS: PANTOPRAZOLE ORAL SUSPENSION 40 MG SUSPDR.PKT GT SCH ×2 (05:48→17:36)
[2019-11-06 07:47] VITALS: BP 95/65
[2019-11-06] MEDS: HYDROGEN PEROXIDE 3% 118 ML BOTTLE TP SCH ×2 (08:51→20:57)
[2019-11-06] MEDS: LOSARTAN POTASSIUM 50 MG TABLET GT SCH (09:00)
[2019-11-06] MEDS: METOPROLOL TARTRATE 50 MG TABLET GT SCH ×2 (09:00→21:00)
[2019-11-06] MEDS: ACIDOPHILUS/BULGARICUS CHEW TAB GT SCH ×2 (09:26→21:22)
[2019-11-06] MEDS: ASPIRIN 81 MG TAB.CHEW GT SCH (09:26)
[2019-11-06] MEDS: COD LIVER OIL/ZINC OXIDE OINT 113 GM TUBE TP SCH ×2 (09:27→21:33)
[2019-11-06] MEDS: NUTRISOURCE FIBER 4 GM PACKET GT SCH (09:27)
[2019-11-06] MEDS: HEPARIN SODIUM,PORCINE 5,000 UNITS/ML VIAL SQ SCH ×2 (09:28→21:33)
[2019-11-06 19:55] VITALS: BP 121/56
[2019-11-06] MEDS: ATORVASTATIN 20 MG TABLET GT SCH (21:27)
[2019-11-07] MEDS: ALBUTEROL SULFATE 2.5 MG/3 ML NEBU NEB SCH ×4 (01:02→19:59)
[2019-11-07] MEDS: VITAL AF 1.2 1,000 ML LIQUID GT PRN (01:23)
[2019-11-07] MEDS: PANTOPRAZOLE ORAL SUSPENSION 40 MG SUSPDR.PKT GT SCH ×2 (05:43→17:29)
[2019-11-07 07:59] VITALS: BP 100/61
[2019-11-07] MEDS: ASPIRIN 81 MG TAB.CHEW GT SCH (08:39)
[2019-11-07] MEDS: NUTRISOURCE FIBER 4 GM PACKET GT SCH (08:40)
[2019-11-07] MEDS: ACIDOPHILUS/BULGARICUS CHEW TAB GT SCH ×2 (08:40→21:31)
[2019-11-07] MEDS: HEPARIN SODIUM,PORCINE 5,000 UNITS/ML VIAL SQ SCH ×2 (08:42→21:33)
[2019-11-07] MEDS: COD LIVER OIL/ZINC OXIDE OINT 113 GM TUBE TP SCH ×2 (08:44→21:32)
[2019-11-07] MEDS: LOSARTAN POTASSIUM 50 MG TABLET GT SCH (08:45)
[2019-11-07] MEDS: METOPROLOL TARTRATE 50 MG TABLET GT SCH ×2 (08:46→21:00)
[2019-11-07] MEDS: HYDROGEN PEROXIDE 3% 118 ML BOTTLE TP SCH ×2 (09:18→20:00)
--- NOTE | 2019-11-07 17:10 | NUR ---
New orders to do the Baseline [facility] Covid 19 test requirement.
[2019-11-07 19:53] VITALS: BP 125/63
[2019-11-07] MEDS: ATORVASTATIN 20 MG TABLET GT SCH (21:31)
[2019-11-07] MEDS: MULTIVIT, IRON, MIN NO. 8, FA TABLET GT SCH (21:32)
[2019-11-08] MEDS: VITAL AF 1.2 1,000 ML LIQUID GT PRN (01:55)
[2019-11-08] MEDS: ALBUTEROL SULFATE 2.5 MG/3 ML NEBU NEB SCH ×4 (02:15→20:07)
[2019-11-08] MEDS: PANTOPRAZOLE ORAL SUSPENSION 40 MG SUSPDR.PKT GT SCH ×2 (05:48→17:31)
[2019-11-08] MEDS: HYDROGEN PEROXIDE 3% 118 ML BOTTLE TP SCH ×2 (07:15→21:14)
[2019-11-08 07:38] VITALS: BP 124/54
[2019-11-08] MEDS: ASPIRIN 81 MG TAB.CHEW GT SCH (08:59)
[2019-11-08] MEDS: METOPROLOL TARTRATE 50 MG TABLET GT SCH ×2 (09:00→21:12)
[2019-11-08] MEDS: LOSARTAN POTASSIUM 50 MG TABLET GT SCH (09:00)
[2019-11-08] MEDS: ACIDOPHILUS/BULGARICUS CHEW TAB GT SCH ×2 (09:00→21:10)
[2019-11-08] MEDS: COD LIVER OIL/ZINC OXIDE OINT 113 GM TUBE TP SCH ×2 (09:01→21:13)
[2019-11-08] MEDS: NUTRISOURCE FIBER 4 GM PACKET GT SCH (09:01)
[2019-11-08] MEDS: HEPARIN SODIUM,PORCINE 5,000 UNITS/ML VIAL SQ SCH ×2 (09:01→21:12)
[2019-11-08 20:00] VITALS: BP 116/54
[2019-11-08] MEDS: ATORVASTATIN 20 MG TABLET GT SCH (21:11)
[2019-11-09] MEDS: ALBUTEROL SULFATE 2.5 MG/3 ML NEBU NEB SCH ×4 (01:53→20:05)
[2019-11-09] MEDS: PANTOPRAZOLE ORAL SUSPENSION 40 MG SUSPDR.PKT GT SCH ×2 (05:59→17:27)
[2019-11-09 07:39] VITALS: BP 111/55
[2019-11-09] MEDS: ASPIRIN 81 MG TAB.CHEW GT SCH (08:30)
[2019-11-09] MEDS: ACIDOPHILUS/BULGARICUS CHEW TAB GT SCH ×2 (08:30→20:15)
[2019-11-09] MEDS: LOSARTAN POTASSIUM 50 MG TABLET GT SCH (08:30)
[2019-11-09] MEDS: NUTRISOURCE FIBER 4 GM PACKET GT SCH (08:31)
[2019-11-09] MEDS: METOPROLOL TARTRATE 50 MG TABLET GT SCH ×2 (08:31→20:15)
[2019-11-09] MEDS: HEPARIN SODIUM,PORCINE 5,000 UNITS/ML VIAL SQ SCH ×2 (08:32→20:16)
[2019-11-09] MEDS: COD LIVER OIL/ZINC OXIDE OINT 113 GM TUBE TP SCH ×2 (08:32→20:15)
[2019-11-09] MEDS: HYDROGEN PEROXIDE 3% 118 ML BOTTLE TP SCH ×2 (08:54→21:52)
[2019-11-09] MEDS: VITAL AF 1.2 1,000 ML LIQUID GT PRN (13:56)
--- NOTE | 2019-11-09 17:00 | NUR ---
SEEN BY TONIO SUÁREZ.
--- NOTE | 2019-11-09 18:00 | NUR ---
PT. NEGATIVE FOR COVID19 TEST.
[2019-11-09 20:00] VITALS: BP 124/65
[2019-11-09] MEDS: MULTIVIT, IRON, MIN NO. 8, FA TABLET GT SCH (20:15)
[2019-11-09] MEDS: ATORVASTATIN 20 MG TABLET GT SCH (20:15)
[2019-11-10] MEDS: ALBUTEROL SULFATE 2.5 MG/3 ML NEBU NEB SCH ×4 (02:05→19:03)
[2019-11-10] MEDS: PANTOPRAZOLE ORAL SUSPENSION 40 MG SUSPDR.PKT GT SCH ×2 (05:17→18:06)
[2019-11-10 07:39] VITALS: BP 110/68
[2019-11-10] MEDS: ASPIRIN 81 MG TAB.CHEW GT SCH (08:28)
[2019-11-10] MEDS: ACIDOPHILUS/BULGARICUS CHEW TAB GT SCH ×2 (08:29→20:13)
[2019-11-10] MEDS: LOSARTAN POTASSIUM 50 MG TABLET GT SCH (08:29)
[2019-11-10] MEDS: NUTRISOURCE FIBER 4 GM PACKET GT SCH (08:30)
[2019-11-10] MEDS: METOPROLOL TARTRATE 50 MG TABLET GT SCH ×2 (08:30→20:13)
[2019-11-10] MEDS: COD LIVER OIL/ZINC OXIDE OINT 113 GM TUBE TP SCH ×2 (08:31→20:14)
[2019-11-10] MEDS: HEPARIN SODIUM,PORCINE 5,000 UNITS/ML VIAL SQ SCH ×2 (08:31→20:14)
[2019-11-10] MEDS: HYDROGEN PEROXIDE 3% 118 ML BOTTLE TP SCH ×2 (09:48→21:19)
--- NOTE | 2019-11-10 10:30 | NUR ---
SEEN BY DR. GUTIERREZ AND WITH NNO.
[2019-11-10] MEDS: VITAL AF 1.2 1,000 ML LIQUID GT PRN (12:19)
[2019-11-10 20:00] VITALS: BP 133/59
[2019-11-10] MEDS: ATORVASTATIN 20 MG TABLET GT SCH (20:13)
[2019-11-11] MEDS: ALBUTEROL SULFATE 2.5 MG/3 ML NEBU NEB SCH ×4 (00:31→19:43)
[2019-11-11] MEDS: PANTOPRAZOLE ORAL SUSPENSION 40 MG SUSPDR.PKT GT SCH ×2 (05:28→18:39)
[2019-11-11 07:53] VITALS: BP 108/64
[2019-11-11] MEDS: HYDROGEN PEROXIDE 3% 118 ML BOTTLE TP SCH ×2 (07:54→21:27)
[2019-11-11] MEDS: LOSARTAN POTASSIUM 50 MG TABLET GT SCH (08:28)
[2019-11-11] MEDS: METOPROLOL TARTRATE 50 MG TABLET GT SCH ×2 (08:28→20:18)
[2019-11-11] MEDS: ASPIRIN 81 MG TAB.CHEW GT SCH (08:28)
[2019-11-11] MEDS: ACIDOPHILUS/BULGARICUS CHEW TAB GT SCH ×2 (08:28→20:18)
[2019-11-11] MEDS: HEPARIN SODIUM,PORCINE 5,000 UNITS/ML VIAL SQ SCH ×2 (08:29→20:19)
[2019-11-11] MEDS: COD LIVER OIL/ZINC OXIDE OINT 113 GM TUBE TP SCH ×2 (08:29→20:18)
[2019-11-11] MEDS: NUTRISOURCE FIBER 4 GM PACKET GT SCH (08:29)
[2019-11-11] MEDS: MULTIVIT, IRON, MIN NO. 8, FA TABLET GT SCH (20:18)
[2019-11-11] MEDS: ATORVASTATIN 20 MG TABLET GT SCH (20:18)
[2019-11-11 20:21] VITALS: BP 139/70
[2019-11-12] MEDS: ALBUTEROL SULFATE 2.5 MG/3 ML NEBU NEB SCH ×4 (01:50→19:53)
[2019-11-12] MEDS: PANTOPRAZOLE ORAL SUSPENSION 40 MG SUSPDR.PKT GT SCH ×2 (05:15→18:03)
[2019-11-12] MEDS: HYDROGEN PEROXIDE 3% 118 ML BOTTLE TP SCH ×2 (07:12→21:45)
[2019-11-12 07:30] VITALS: BP 114/55
[2019-11-12] MEDS: ASPIRIN 81 MG TAB.CHEW GT SCH (08:34)
[2019-11-12] MEDS: NUTRISOURCE FIBER 4 GM PACKET GT SCH (08:35)
[2019-11-12] MEDS: ACIDOPHILUS/BULGARICUS CHEW TAB GT SCH ×2 (08:35→21:23)
[2019-11-12] MEDS: LOSARTAN POTASSIUM 50 MG TABLET GT SCH (08:35)
[2019-11-12] MEDS: METOPROLOL TARTRATE 50 MG TABLET GT SCH ×2 (08:35→21:00)
[2019-11-12] MEDS: COD LIVER OIL/ZINC OXIDE OINT 113 GM TUBE TP SCH ×2 (08:37→21:24)
[2019-11-12] MEDS: HEPARIN SODIUM,PORCINE 5,000 UNITS/ML VIAL SQ SCH ×2 (08:37→21:34)
--- NOTE | 2019-11-12 17:20 | NUR ---
SEEN BY ENOCH WRIGHT N.P. AND WITH NNO.
[2019-11-12 20:14] VITALS: BP 119/68
[2019-11-12] MEDS: ATORVASTATIN 20 MG TABLET GT SCH (21:23)
[2019-11-13] MEDS: ALBUTEROL SULFATE 2.5 MG/3 ML NEBU NEB SCH ×4 (02:05→19:35)
[2019-11-13] MEDS: PANTOPRAZOLE ORAL SUSPENSION 40 MG SUSPDR.PKT GT SCH ×2 (05:17→18:56)
[2019-11-13 07:35] VITALS: BP 120/43
[2019-11-13] MEDS: HYDROGEN PEROXIDE 3% 118 ML BOTTLE TP SCH ×2 (08:53→21:14)
[2019-11-13] MEDS: METOPROLOL TARTRATE 50 MG TABLET GT SCH ×2 (09:00→20:03)
[2019-11-13] MEDS: LOSARTAN POTASSIUM 50 MG TABLET GT SCH (09:00)
[2019-11-13] MEDS: ASPIRIN 81 MG TAB.CHEW GT SCH (09:26)
[2019-11-13] MEDS: ACIDOPHILUS/BULGARICUS CHEW TAB GT SCH ×2 (09:33→20:00)
[2019-11-13] MEDS: COD LIVER OIL/ZINC OXIDE OINT 113 GM TUBE TP SCH ×2 (09:34→20:04)
[2019-11-13] MEDS: NUTRISOURCE FIBER 4 GM PACKET GT SCH (09:34)
[2019-11-13] MEDS: HEPARIN SODIUM,PORCINE 5,000 UNITS/ML VIAL SQ SCH ×2 (09:38→20:04)
[2019-11-13] MEDS: VITAL AF 1.2 1,000 ML LIQUID GT PRN (10:38)
[2019-11-13 20:00] VITALS: BP 123/69
[2019-11-13] MEDS: ATORVASTATIN 20 MG TABLET GT SCH (20:00)
[2019-11-13] MEDS: MULTIVIT, IRON, MIN NO. 8, FA TABLET GT SCH (20:03)
[2019-11-14] MEDS: ALBUTEROL SULFATE 2.5 MG/3 ML NEBU NEB SCH ×4 (01:44→19:47)
[2019-11-14] MEDS: VITAL AF 1.2 1,000 ML LIQUID GT PRN (03:59)
[2019-11-14] MEDS: PANTOPRAZOLE ORAL SUSPENSION 40 MG SUSPDR.PKT GT SCH ×2 (06:04→18:04)
[2019-11-14 07:40] VITALS: BP 123/59
[2019-11-14] MEDS: ACIDOPHILUS/BULGARICUS CHEW TAB GT SCH ×2 (08:36→20:34)
[2019-11-14] MEDS: METOPROLOL TARTRATE 50 MG TABLET GT SCH ×2 (08:36→20:34)
[2019-11-14] MEDS: LOSARTAN POTASSIUM 50 MG TABLET GT SCH (08:36)
[2019-11-14] MEDS: ASPIRIN 81 MG TAB.CHEW GT SCH (08:36)
[2019-11-14] MEDS: COD LIVER OIL/ZINC OXIDE OINT 113 GM TUBE TP SCH ×2 (08:37→20:35)
[2019-11-14] MEDS: NUTRISOURCE FIBER 4 GM PACKET GT SCH (08:37)
[2019-11-14] MEDS: HEPARIN SODIUM,PORCINE 5,000 UNITS/ML VIAL SQ SCH ×2 (08:41→20:35)
[2019-11-14] MEDS: HYDROGEN PEROXIDE 3% 118 ML BOTTLE TP SCH ×2 (09:00→21:49)
[2019-11-14 20:00] VITALS: BP 111/59
[2019-11-14] MEDS: ATORVASTATIN 20 MG TABLET GT SCH (20:34)
[2019-11-15] MEDS: VITAL AF 1.2 1,000 ML LIQUID GT PRN (02:00)
[2019-11-15] MEDS: ALBUTEROL SULFATE 2.5 MG/3 ML NEBU NEB SCH ×4 (02:13→19:19)
[2019-11-15] MEDS: PANTOPRAZOLE ORAL SUSPENSION 40 MG SUSPDR.PKT GT SCH ×2 (05:17→17:06)
[2019-11-15 07:35] VITALS: BP 100/57
[2019-11-15] MEDS: ASPIRIN 81 MG TAB.CHEW GT SCH (08:21)
[2019-11-15] MEDS: LOSARTAN POTASSIUM 50 MG TABLET GT SCH (08:22)
[2019-11-15] MEDS: ACIDOPHILUS/BULGARICUS CHEW TAB GT SCH ×2 (08:24→20:05)
[2019-11-15] MEDS: HEPARIN SODIUM,PORCINE 5,000 UNITS/ML VIAL SQ SCH ×2 (08:25→20:07)
[2019-11-15] MEDS: COD LIVER OIL/ZINC OXIDE OINT 113 GM TUBE TP SCH ×2 (08:25→20:07)
[2019-11-15] MEDS: METOPROLOL TARTRATE 50 MG TABLET GT SCH ×2 (08:25→20:06)
[2019-11-15] MEDS: NUTRISOURCE FIBER 4 GM PACKET GT SCH (08:25)
[2019-11-15] MEDS: HYDROGEN PEROXIDE 3% 118 ML BOTTLE TP SCH ×2 (09:00→21:18)
[2019-11-15 20:00] VITALS: BP 110/59
[2019-11-15] MEDS: ATORVASTATIN 20 MG TABLET GT SCH (20:05)
[2019-11-15] MEDS: MULTIVIT, IRON, MIN NO. 8, FA TABLET GT SCH (20:06)
[2019-11-16] MEDS: VITAL AF 1.2 1,000 ML LIQUID GT PRN (00:30)
[2019-11-16] MEDS: ALBUTEROL SULFATE 2.5 MG/3 ML NEBU NEB SCH ×4 (00:45→18:58)
[2019-11-16] MEDS: PANTOPRAZOLE ORAL SUSPENSION 40 MG SUSPDR.PKT GT SCH ×2 (05:14→17:13)
[2019-11-16 07:30] VITALS: BP 123/62
[2019-11-16] MEDS: ASPIRIN 81 MG TAB.CHEW GT SCH (08:03)
[2019-11-16] MEDS: LOSARTAN POTASSIUM 50 MG TABLET GT SCH (08:04)
[2019-11-16] MEDS: METOPROLOL TARTRATE 50 MG TABLET GT SCH ×2 (08:04→20:36)
[2019-11-16] MEDS: ACIDOPHILUS/BULGARICUS CHEW TAB GT SCH ×2 (08:04→20:35)
[2019-11-16] MEDS: NUTRISOURCE FIBER 4 GM PACKET GT SCH (08:08)
[2019-11-16] MEDS: HEPARIN SODIUM,PORCINE 5,000 UNITS/ML VIAL SQ SCH ×2 (08:09→21:00)
[2019-11-16] MEDS: COD LIVER OIL/ZINC OXIDE OINT 113 GM TUBE TP SCH ×2 (08:09→20:36)
[2019-11-16] MEDS: HYDROGEN PEROXIDE 3% 118 ML BOTTLE TP SCH ×2 (09:00→21:13)
[2019-11-16 20:28] VITALS: BP 122/49
[2019-11-16] MEDS: ATORVASTATIN 20 MG TABLET GT SCH (20:35)
[2019-11-17] MEDS: ALBUTEROL SULFATE 2.5 MG/3 ML NEBU NEB SCH ×4 (00:31→19:40)
[2019-11-17] MEDS: VITAL AF 1.2 1,000 ML LIQUID GT PRN (01:56)
[2019-11-17] MEDS: PANTOPRAZOLE ORAL SUSPENSION 40 MG SUSPDR.PKT GT SCH ×2 (06:13→17:21)
[2019-11-17 06:54] LABS: BASOPHILS % (AUTO) 0.3 % (0.0-2.0); EOSINOPHILS # (AUTO) 0.5 K/uL (0.0-0.7); EOSINOPHILS % (AUTO) 8.5 % (0.0-7.0); HEMATOCRIT 37.7 % (36.7-47.1); HEMOGLOBIN 12.8 g/dL (12.5-16.3); LYMPHOCYTES # (AUTO) 1.7 K/uL (20.0-40.0); LYMPHOCYTES % (AUTO) 29.3 % (20.5-51.5); MEAN CORPUSCULAR HEMOGLOBIN 32.7 uug (23.8-33.4); MEAN CORPUSCULAR HGB CONC 34 g/dL (32.5-36.3); MONOCYTES # (AUTO) 0.5 K/uL (2.0-10.0); MONOCYTES % (AUTO) 8.7 % (0.0-11.0); NEUTROPHILS # (AUTO) 3.2 K/uL (1.8-8.9); NEUTROPHILS % (AUTO) 53.2 % (38.5-71.5); PLATELET COUNT (AUTO) 246 K/uL (152-348); RED BLOOD CELL COUNT(AUTO) 3.93 MIL/uL (4.06-5.63); WHITE BLOOD COUNT (AUTO) 5.9 K/uL (3.6-10.2)
[2019-11-17 07:11] LABS: CREATININE 0.7 mg/dL (0.6-1.3); MAGNESIUM 2.1 mg/dL (1.8-2.4); PHOSPHOROUS 3.6 mg/dL (2.5-4.9); POTASSIUM 4.3 mmol/L (3.5-5.1)
[2019-11-17 07:36] VITALS: BP 110/63
[2019-11-17] MEDS: ASPIRIN 81 MG TAB.CHEW GT SCH (08:40)
[2019-11-17] MEDS: ACIDOPHILUS/BULGARICUS CHEW TAB GT SCH ×2 (08:41→20:31)
[2019-11-17] MEDS: LOSARTAN POTASSIUM 50 MG TABLET GT SCH (08:41)
[2019-11-17] MEDS: METOPROLOL TARTRATE 50 MG TABLET GT SCH ×2 (08:41→20:34)
[2019-11-17] MEDS: NUTRISOURCE FIBER 4 GM PACKET GT SCH (08:42)
[2019-11-17] MEDS: COD LIVER OIL/ZINC OXIDE OINT 113 GM TUBE TP SCH ×2 (08:45→20:33)
[2019-11-17] MEDS: HEPARIN SODIUM,PORCINE 5,000 UNITS/ML VIAL SQ SCH ×2 (08:45→20:32)
[2019-11-17] MEDS: POLYVINYL ALCOHOL OPHT DROPS 15 ML BOTTLE EACHEYE PRN (08:53)
[2019-11-17] MEDS: HYDROGEN PEROXIDE 3% 118 ML BOTTLE TP SCH ×2 (09:50→21:04)
[2019-11-17] MEDS: ATORVASTATIN 20 MG TABLET GT SCH (20:31)
[2019-11-17] MEDS: MULTIVIT, IRON, MIN NO. 8, FA TABLET GT SCH (20:33)
[2019-11-17 20:41] VITALS: BP 133/71
[2019-11-18] MEDS: ALBUTEROL SULFATE 2.5 MG/3 ML NEBU NEB SCH ×4 (01:20→20:20)
[2019-11-18] MEDS: PANTOPRAZOLE ORAL SUSPENSION 40 MG SUSPDR.PKT GT SCH ×2 (05:23→17:45)
[2019-11-18] MEDS: VITAL AF 1.2 1,000 ML LIQUID GT PRN (05:24)
[2019-11-18] MEDS: HYDROGEN PEROXIDE 3% 118 ML BOTTLE TP SCH ×2 (07:22→21:03)
[2019-11-18 07:35] VITALS: BP 141/70
[2019-11-18 07:37] VITALS: BP_SYST 116
[2019-11-18 07:39] VITALS: BP 116/39
[2019-11-18] MEDS: METOPROLOL TARTRATE 50 MG TABLET GT SCH ×2 (09:00→20:25)
[2019-11-18] MEDS: ASPIRIN 81 MG TAB.CHEW GT SCH (09:09)
[2019-11-18] MEDS: LOSARTAN POTASSIUM 50 MG TABLET GT SCH (09:13)
[2019-11-18] MEDS: ACIDOPHILUS/BULGARICUS CHEW TAB GT SCH ×2 (09:13→20:23)
[2019-11-18] MEDS: NUTRISOURCE FIBER 4 GM PACKET GT SCH (09:14)
[2019-11-18] MEDS: COD LIVER OIL/ZINC OXIDE OINT 113 GM TUBE TP SCH ×2 (09:15→20:25)
[2019-11-18] MEDS: HEPARIN SODIUM,PORCINE 5,000 UNITS/ML VIAL SQ SCH ×2 (09:15→20:24)
[2019-11-18] MEDS: ATORVASTATIN 20 MG TABLET GT SCH (20:25)
[2019-11-18 20:30] VITALS: BP 118/72
[2019-11-19] MEDS: VITAL AF 1.2 1,000 ML LIQUID GT PRN ×2 (00:30→18:27)
[2019-11-19] MEDS: ALBUTEROL SULFATE 2.5 MG/3 ML NEBU NEB SCH ×4 (01:42→19:39)
[2019-11-19] MEDS: PANTOPRAZOLE ORAL SUSPENSION 40 MG SUSPDR.PKT GT SCH ×2 (05:41→18:25)
[2019-11-19 07:03] LABS: BASOPHILS # (AUTO) 0.1 K/uL (0.0-8.0); BASOPHILS % (AUTO) 1.1 % (0.0-2.0); EOSINOPHILS # (AUTO) 0.6 K/uL (0.0-0.7); EOSINOPHILS % (AUTO) 9.3 % (0.0-7.0); HEMOGLOBIN 13.3 g/dL (12.5-16.3); LYMPHOCYTES # (AUTO) 1.4 K/uL (20.0-40.0); LYMPHOCYTES % (AUTO) 22.6 % (20.5-51.5); MEAN CORPUSCULAR HEMOGLOBIN 32.5 uug (23.8-33.4); MEAN CORPUSCULAR HGB CONC 34 g/dL (32.5-36.3); MEAN CORPUSCULAR VOLUME 95.1 fL (73.0-96.2); MONOCYTES # (AUTO) 0.5 K/uL (2.0-10.0); MONOCYTES % (AUTO) 7.4 % (0.0-11.0); NEUTROPHILS # (AUTO) 3.7 K/uL (1.8-8.9); NEUTROPHILS % (AUTO) 59.6 % (38.5-71.5); PLATELET COUNT (AUTO) 269 K/uL (152-348); WHITE BLOOD COUNT (AUTO) 6.2 K/uL (3.6-10.2)
[2019-11-19 07:43] VITALS: BP 125/61
[2019-11-19 07:48] LABS: BILIRUBIN,TOTAL 0.4 mg/dL (0.2-1.0); CREATININE 0.8 mg/dL (0.6-1.3); POTASSIUM 5.1 mmol/L (3.5-5.1); TOTAL PROTEIN, SERUM 7.2 g/dL (6.4-8.2)
[2019-11-19] MEDS: HYDROGEN PEROXIDE 3% 118 ML BOTTLE TP SCH ×2 (08:01→21:19)
[2019-11-19] MEDS: ACIDOPHILUS/BULGARICUS CHEW TAB GT SCH ×2 (08:49→20:21)
[2019-11-19] MEDS: ASPIRIN 81 MG TAB.CHEW GT SCH (08:49)
[2019-11-19] MEDS: LOSARTAN POTASSIUM 50 MG TABLET GT SCH (08:49)
[2019-11-19] MEDS: NUTRISOURCE FIBER 4 GM PACKET GT SCH (08:50)
[2019-11-19] MEDS: METOPROLOL TARTRATE 50 MG TABLET GT SCH ×2 (08:50→20:21)
[2019-11-19] MEDS: COD LIVER OIL/ZINC OXIDE OINT 113 GM TUBE TP SCH ×2 (08:51→20:22)
[2019-11-19] MEDS: HEPARIN SODIUM,PORCINE 5,000 UNITS/ML VIAL SQ SCH ×2 (08:51→20:20)
--- NOTE | 2019-11-19 16:35 | NUR ---
SW called patient's daughter Marina [phone] to check-in on how she and the family were doing. Marina was receptive to speaking with this GUTIERREZ. Marina stated that she, her brother Reji, and [id number]-cxe Gin are all doing well. Marina stated that they all takes turns talking to the patient via video chat, and also touch base with nursing, as needed. Marina expressed being grateful to all the staff for all their hard work with taking good care of the patient throughout the last several months, while the family has not been able to visit due to pandemic restrictions. Marina stated not having any concerns at this time, and thanked GUTIERREZ for checking in with her. GUTIERREZ will continue to check in with patient's family, as needed.
[2019-11-19 19:58] VITALS: BP 129/65
[2019-11-19] MEDS: ATORVASTATIN 20 MG TABLET GT SCH (20:21)
[2019-11-19] MEDS: MULTIVIT, IRON, MIN NO. 8, FA TABLET GT SCH (20:22)
[2019-11-20] MEDS: ALBUTEROL SULFATE 2.5 MG/3 ML NEBU NEB SCH ×4 (02:09→19:43)
[2019-11-20] MEDS: PANTOPRAZOLE ORAL SUSPENSION 40 MG SUSPDR.PKT GT SCH ×2 (05:56→17:22)
[2019-11-20 07:28] VITALS: BP 122/71
[2019-11-20 07:59] LABS: CREATININE 0.7 mg/dL (0.6-1.3); POTASSIUM 4.6 mmol/L (3.5-5.1)
[2019-11-20] MEDS: LOSARTAN POTASSIUM 50 MG TABLET GT SCH (08:27)
[2019-11-20] MEDS: ASPIRIN 81 MG TAB.CHEW GT SCH (08:27)
[2019-11-20] MEDS: NUTRISOURCE FIBER 4 GM PACKET GT SCH (08:27)
[2019-11-20] MEDS: METOPROLOL TARTRATE 50 MG TABLET GT SCH ×2 (08:27→20:14)
[2019-11-20] MEDS: ACIDOPHILUS/BULGARICUS CHEW TAB GT SCH ×2 (08:27→20:13)
[2019-11-20] MEDS: COD LIVER OIL/ZINC OXIDE OINT 113 GM TUBE TP SCH ×2 (08:28→20:14)
[2019-11-20] MEDS: HEPARIN SODIUM,PORCINE 5,000 UNITS/ML VIAL SQ SCH ×2 (08:28→20:19)
[2019-11-20] MEDS: HYDROGEN PEROXIDE 3% 118 ML BOTTLE TP SCH ×2 (09:00→21:29)
[2019-11-20] MEDS: VITAL AF 1.2 1,000 ML LIQUID GT PRN (15:34)
[2019-11-20 20:00] VITALS: BP 132/66
[2019-11-20] MEDS: ATORVASTATIN 20 MG TABLET GT SCH (20:13)
[2019-11-21] MEDS: ALBUTEROL SULFATE 2.5 MG/3 ML NEBU NEB SCH ×4 (01:22→20:19)
[2019-11-21] MEDS: PANTOPRAZOLE ORAL SUSPENSION 40 MG SUSPDR.PKT GT SCH ×2 (05:14→17:42)
[2019-11-21 07:40] VITALS: BP 112/46
[2019-11-21] MEDS: ASPIRIN 81 MG TAB.CHEW GT SCH (08:46)
[2019-11-21] MEDS: METOPROLOL TARTRATE 50 MG TABLET GT SCH ×2 (08:47→20:27)
[2019-11-21] MEDS: ACIDOPHILUS/BULGARICUS CHEW TAB GT SCH ×2 (08:47→20:27)
[2019-11-21] MEDS: LOSARTAN POTASSIUM 50 MG TABLET GT SCH (08:47)
[2019-11-21] MEDS: NUTRISOURCE FIBER 4 GM PACKET GT SCH (08:48)
[2019-11-21] MEDS: COD LIVER OIL/ZINC OXIDE OINT 113 GM TUBE TP SCH ×2 (08:48→20:27)
[2019-11-21] MEDS: HEPARIN SODIUM,PORCINE 5,000 UNITS/ML VIAL SQ SCH ×2 (08:49→20:14)
[2019-11-21] MEDS: HYDROGEN PEROXIDE 3% 118 ML BOTTLE TP SCH ×2 (09:50→21:31)
[2019-11-21 20:00] VITALS: BP 115/53
[2019-11-21] MEDS: ATORVASTATIN 20 MG TABLET GT SCH (20:27)
[2019-11-21] MEDS: MULTIVIT, IRON, MIN NO. 8, FA TABLET GT SCH (20:27)
[2019-11-22] MEDS: ALBUTEROL SULFATE 2.5 MG/3 ML NEBU NEB SCH ×4 (01:32→20:22)
[2019-11-22] MEDS: PANTOPRAZOLE ORAL SUSPENSION 40 MG SUSPDR.PKT GT SCH ×2 (06:21→17:53)
[2019-11-22 07:32] VITALS: BP 112/52
[2019-11-22] MEDS: HYDROGEN PEROXIDE 3% 118 ML BOTTLE TP SCH ×2 (08:22→21:12)
[2019-11-22] MEDS: METOPROLOL TARTRATE 50 MG TABLET GT SCH ×2 (09:00→20:39)
[2019-11-22] MEDS: LOSARTAN POTASSIUM 50 MG TABLET GT SCH (09:00)
[2019-11-22] MEDS: ASPIRIN 81 MG TAB.CHEW GT SCH (09:16)
[2019-11-22] MEDS: HEPARIN SODIUM,PORCINE 5,000 UNITS/ML VIAL SQ SCH ×2 (09:18→20:41)
[2019-11-22] MEDS: NUTRISOURCE FIBER 4 GM PACKET GT SCH (09:19)
[2019-11-22] MEDS: ACIDOPHILUS/BULGARICUS CHEW TAB GT SCH ×2 (09:20→20:39)
[2019-11-22] MEDS: COD LIVER OIL/ZINC OXIDE OINT 113 GM TUBE TP SCH ×2 (09:23→20:40)
[2019-11-22 20:00] VITALS: BP 115/51
[2019-11-22] MEDS: ATORVASTATIN 20 MG TABLET GT SCH (20:39)
[2019-11-23] MEDS: ALBUTEROL SULFATE 2.5 MG/3 ML NEBU NEB SCH ×4 (01:34→20:28)
[2019-11-23] MEDS: PANTOPRAZOLE ORAL SUSPENSION 40 MG SUSPDR.PKT GT SCH ×2 (05:30→17:36)
[2019-11-23 07:46] VITALS: BP 109/55
[2019-11-23] MEDS: LOSARTAN POTASSIUM 50 MG TABLET GT SCH (08:36)
[2019-11-23] MEDS: ASPIRIN 81 MG TAB.CHEW GT SCH (08:36)
[2019-11-23] MEDS: METOPROLOL TARTRATE 50 MG TABLET GT SCH (08:37)
[2019-11-23] MEDS: COD LIVER OIL/ZINC OXIDE OINT 113 GM TUBE TP SCH ×2 (08:37→20:24)
[2019-11-23] MEDS: NUTRISOURCE FIBER 4 GM PACKET GT SCH (08:37)
[2019-11-23] MEDS: HEPARIN SODIUM,PORCINE 5,000 UNITS/ML VIAL SQ SCH ×2 (08:37→20:25)
[2019-11-23] MEDS: ACIDOPHILUS/BULGARICUS CHEW TAB GT SCH ×2 (08:37→20:23)
[2019-11-23] MEDS: HYDROGEN PEROXIDE 3% 118 ML BOTTLE TP SCH ×2 (09:06→21:35)
--- NOTE | 2019-11-23 13:15 | NUR ---
NEW ORDER WAS CARRIED OUT FROM DR. GABRIEL ELIZALDE.
[2019-11-23] MEDS: ATORVASTATIN 20 MG TABLET GT SCH (20:23)
[2019-11-23] MEDS: MULTIVIT, IRON, MIN NO. 8, FA TABLET GT SCH (20:24)
[2019-11-23 23:18] VITALS: BP 116/54
[2019-11-24] MEDS: ALBUTEROL SULFATE 2.5 MG/3 ML NEBU NEB SCH ×4 (01:58→19:08)
[2019-11-24] MEDS: VITAL AF 1.2 1,000 ML LIQUID GT PRN (03:38)
[2019-11-24] MEDS: PANTOPRAZOLE ORAL SUSPENSION 40 MG SUSPDR.PKT GT SCH ×2 (06:03→17:37)
[2019-11-24 07:46] VITALS: BP 117/61
[2019-11-24] MEDS: HYDROGEN PEROXIDE 3% 118 ML BOTTLE TP SCH ×2 (08:45→21:32)
[2019-11-24] MEDS: METOPROLOL TARTRATE 25 MG TABLET GT SCH ×2 (09:00→20:09)
[2019-11-24] MEDS: LOSARTAN POTASSIUM 50 MG TABLET GT SCH (09:00)
[2019-11-24] MEDS: ASPIRIN 81 MG TAB.CHEW GT SCH (09:13)
[2019-11-24] MEDS: ACIDOPHILUS/BULGARICUS CHEW TAB GT SCH ×2 (09:15→20:09)
[2019-11-24] MEDS: HEPARIN SODIUM,PORCINE 5,000 UNITS/ML VIAL SQ SCH ×2 (09:17→20:10)
[2019-11-24] MEDS: NUTRISOURCE FIBER 4 GM PACKET GT SCH (09:17)
[2019-11-24] MEDS: COD LIVER OIL/ZINC OXIDE OINT 113 GM TUBE TP SCH ×2 (09:17→20:10)
[2019-11-24] MEDS: ATORVASTATIN 20 MG TABLET GT SCH (20:09)
[2019-11-24 22:53] VITALS: BP 120/77
[2019-11-25] MEDS: ALBUTEROL SULFATE 2.5 MG/3 ML NEBU NEB SCH ×4 (00:30→20:22)
[2019-11-25] MEDS: PANTOPRAZOLE ORAL SUSPENSION 40 MG SUSPDR.PKT GT SCH ×2 (05:56→17:13)
[2019-11-25] MEDS: VITAL AF 1.2 1,000 ML LIQUID GT PRN (05:56)
[2019-11-25 07:44] VITALS: BP 123/60
[2019-11-25] MEDS: ACIDOPHILUS/BULGARICUS CHEW TAB GT SCH ×2 (08:36→20:34)
[2019-11-25] MEDS: LOSARTAN POTASSIUM 50 MG TABLET GT SCH (08:36)
[2019-11-25] MEDS: ASPIRIN 81 MG TAB.CHEW GT SCH (08:36)
[2019-11-25] MEDS: HYDROGEN PEROXIDE 3% 118 ML BOTTLE TP SCH ×2 (08:36→21:37)
[2019-11-25] MEDS: METOPROLOL TARTRATE 25 MG TABLET GT SCH ×2 (08:38→20:34)
[2019-11-25] MEDS: NUTRISOURCE FIBER 4 GM PACKET GT SCH (08:38)
[2019-11-25] MEDS: HEPARIN SODIUM,PORCINE 5,000 UNITS/ML VIAL SQ SCH ×2 (08:39→20:18)
[2019-11-25] MEDS: COD LIVER OIL/ZINC OXIDE OINT 113 GM TUBE TP SCH ×2 (08:39→20:35)
[2019-11-25] MEDS: ATORVASTATIN 20 MG TABLET GT SCH (20:34)
[2019-11-25] MEDS: MULTIVIT, IRON, MIN NO. 8, FA TABLET GT SCH (20:35)
[2019-11-25 23:39] VITALS: BP 106/55
[2019-11-26] MEDS: ALBUTEROL SULFATE 2.5 MG/3 ML NEBU NEB SCH ×4 (01:17→20:09)
[2019-11-26] MEDS: VITAL AF 1.2 1,000 ML LIQUID GT PRN (02:04)
[2019-11-26] MEDS: PANTOPRAZOLE ORAL SUSPENSION 40 MG SUSPDR.PKT GT SCH ×2 (05:43→17:38)
[2019-11-26 07:35] VITALS: BP 128/44
[2019-11-26] MEDS: ASPIRIN 81 MG TAB.CHEW GT SCH (08:51)
[2019-11-26] MEDS: LOSARTAN POTASSIUM 50 MG TABLET GT SCH (08:52)
[2019-11-26] MEDS: METOPROLOL TARTRATE 25 MG TABLET GT SCH ×2 (08:52→20:44)
[2019-11-26] MEDS: ACIDOPHILUS/BULGARICUS CHEW TAB GT SCH ×2 (08:52→20:43)
[2019-11-26] MEDS: NUTRISOURCE FIBER 4 GM PACKET GT SCH (08:53)
[2019-11-26] MEDS: HEPARIN SODIUM,PORCINE 5,000 UNITS/ML VIAL SQ SCH ×2 (08:56→20:34)
[2019-11-26] MEDS: COD LIVER OIL/ZINC OXIDE OINT 113 GM TUBE TP SCH ×2 (08:56→20:45)
[2019-11-26] MEDS: HYDROGEN PEROXIDE 3% 118 ML BOTTLE TP SCH ×2 (09:28→21:49)
--- NOTE | 2019-11-26 18:19 | NUR ---
SEEN BY ENOCH Reyes AND DR. FLORES AND WITH NNO.
--- NOTE | 2019-11-26 18:20 | NUR ---
SEEN BY DR. GABRIEL Arana AND WITH NEW ORDERS CARRIED OUT.
[2019-11-26 20:37] VITALS: BP 127/50
[2019-11-26] MEDS: ATORVASTATIN 20 MG TABLET GT SCH (20:43)
[2019-11-27] MEDS: ALBUTEROL SULFATE 2.5 MG/3 ML NEBU NEB SCH ×4 (01:44→19:33)
[2019-11-27] MEDS: PANTOPRAZOLE ORAL SUSPENSION 40 MG SUSPDR.PKT GT SCH ×2 (06:13→17:07)
[2019-11-27 06:18] LABS: BASOPHILS # (AUTO) 0.1 K/uL (0.0-8.0); BASOPHILS % (AUTO) 1.1 % (0.0-2.0); EOSINOPHILS # (AUTO) 0.4 K/uL (0.0-0.7); EOSINOPHILS % (AUTO) 3.8 % (0.0-7.0); HEMATOCRIT 38.4 % (36.7-47.1); HEMOGLOBIN 13.2 g/dL (12.5-16.3); LYMPHOCYTES # (AUTO) 1.4 K/uL (20.0-40.0); LYMPHOCYTES % (AUTO) 12.5 % (20.5-51.5); MEAN CORPUSCULAR HEMOGLOBIN 32.6 uug (23.8-33.4); MEAN CORPUSCULAR HGB CONC 34 g/dL (32.5-36.3); MEAN CORPUSCULAR VOLUME 94.6 fL (73.0-96.2); MONOCYTES # (AUTO) 0.4 K/uL (2.0-10.0); MONOCYTES % (AUTO) 3.5 % (0.0-11.0); NEUTROPHILS # (AUTO) 9.2 K/uL (1.8-8.9); NEUTROPHILS % (AUTO) 79.1 % (38.5-71.5); PLATELET COUNT (AUTO) 259 K/uL (152-348); RED BLOOD CELL COUNT(AUTO) 4.06 MIL/uL (4.06-5.63)
[2019-11-27 06:34] LABS: CARBON DIOXIDE 28 mmol/L (21-32); CHLORIDE 100 mmol/L (98-107); CREATININE 0.6 mg/dL (0.6-1.3); GLUCOSE 113 mg/dL (74-106); PHOSPHOROUS 3.7 mg/dL (2.5-4.9); POTASSIUM 3.9 mmol/L (3.5-5.1); UREA NITROGEN, BLOOD 19 mg/dL (7-18)
[2019-11-27 06:52] LABS: WHITE BLOOD COUNT (AUTO) 11.6 K/uL (3.6-10.2)
[2019-11-27 07:54] VITALS: BP 127/40
[2019-11-27] MEDS: ASPIRIN 81 MG TAB.CHEW GT SCH (08:14)
[2019-11-27] MEDS: LOSARTAN POTASSIUM 50 MG TABLET GT SCH (08:15)
[2019-11-27] MEDS: METOPROLOL TARTRATE 25 MG TABLET GT SCH ×2 (08:15→21:00)
[2019-11-27] MEDS: NUTRISOURCE FIBER 4 GM PACKET GT SCH (08:15)
[2019-11-27] MEDS: ACIDOPHILUS/BULGARICUS CHEW TAB GT SCH ×2 (08:15→21:20)
[2019-11-27] MEDS: COD LIVER OIL/ZINC OXIDE OINT 113 GM TUBE TP SCH ×2 (08:21→21:29)
[2019-11-27] MEDS: HEPARIN SODIUM,PORCINE 5,000 UNITS/ML VIAL SQ SCH ×2 (08:21→21:27)
[2019-11-27] MEDS: HYDROGEN PEROXIDE 3% 118 ML BOTTLE TP SCH ×2 (09:52→21:06)
--- NOTE | 2019-11-27 11:50 | NUR ---
Dr Sanchez aware of the abnormal labs results,no new orders noted.
--- NOTE | 2019-11-27 13:17 | NUR ---
Seen and examined by Rosie Walton ,with new orders noted and carried out.
[2019-11-27] MEDS: VITAL AF 1.2 1,000 ML LIQUID GT PRN (16:49)
[2019-11-27 19:49] VITALS: BP 128/63
[2019-11-27] MEDS: ATORVASTATIN 20 MG TABLET GT SCH (21:21)
[2019-11-27] MEDS: MULTIVIT, IRON, MIN NO. 8, FA TABLET GT SCH (21:26)
[2019-11-28] MEDS: ALBUTEROL SULFATE 2.5 MG/3 ML NEBU NEB SCH ×4 (01:37→19:22)
[2019-11-28] MEDS: PANTOPRAZOLE ORAL SUSPENSION 40 MG SUSPDR.PKT GT SCH ×2 (06:10→17:19)
[2019-11-28 07:42] VITALS: BP 110/64
[2019-11-28] MEDS: ASPIRIN 81 MG TAB.CHEW GT SCH (08:29)
[2019-11-28] MEDS: ACIDOPHILUS/BULGARICUS CHEW TAB GT SCH ×2 (08:31→21:34)
[2019-11-28] MEDS: LOSARTAN POTASSIUM 50 MG TABLET GT SCH (08:31)
[2019-11-28] MEDS: METOPROLOL TARTRATE 25 MG TABLET GT SCH ×2 (08:32→21:38)
[2019-11-28] MEDS: NUTRISOURCE FIBER 4 GM PACKET GT SCH (08:32)
[2019-11-28] MEDS: COD LIVER OIL/ZINC OXIDE OINT 113 GM TUBE TP SCH ×2 (08:35→21:41)
[2019-11-28] MEDS: HEPARIN SODIUM,PORCINE 5,000 UNITS/ML VIAL SQ SCH ×2 (08:35→21:41)
[2019-11-28] MEDS: HYDROGEN PEROXIDE 3% 118 ML BOTTLE TP SCH ×2 (09:07→21:03)
--- NOTE | 2019-11-28 14:28 | NUR ---
SW sent patient's son Reji, daughter Marina, and mghsilzx-uj-rto Gin an email stating that the next IDT meeting for the patient is scheduled for 12/04/2019 at 11am. SW asked for patient's above mentioned family to respond back to the email and let this SW know if they would like to participate in the meeting thru speaker phone. SW waiting to hear back from patient's family.
[2019-11-28] MEDS: VITAL AF 1.2 1,000 ML LIQUID GT PRN (17:19)
[2019-11-28 20:00] VITALS: BP 122/55
[2019-11-28] MEDS: ATORVASTATIN 20 MG TABLET GT SCH (21:35)
[2019-11-29] MEDS: ALBUTEROL SULFATE 2.5 MG/3 ML NEBU NEB SCH ×4 (00:46→19:38)
[2019-11-29 05:39] LABS: BASOPHILS # (AUTO) 0.1 K/uL (0.0-8.0); BASOPHILS % (AUTO) 1.1 % (0.0-2.0); EOSINOPHILS # (AUTO) 0.6 K/uL (0.0-0.7); EOSINOPHILS % (AUTO) 9.7 % (0.0-7.0); HEMATOCRIT 36.8 % (36.7-47.1); HEMOGLOBIN 12.6 g/dL (12.5-16.3); LYMPHOCYTES # (AUTO) 1.5 K/uL (20.0-40.0); LYMPHOCYTES % (AUTO) 22.5 % (20.5-51.5); MEAN CORPUSCULAR HEMOGLOBIN 32.7 uug (23.8-33.4); MEAN CORPUSCULAR HGB CONC 34 g/dL (32.5-36.3); MEAN CORPUSCULAR VOLUME 95.2 fL (73.0-96.2); MONOCYTES # (AUTO) 0.5 K/uL (2.0-10.0); MONOCYTES % (AUTO) 7.5 % (0.0-11.0); NEUTROPHILS # (AUTO) 3.8 K/uL (1.8-8.9); NEUTROPHILS % (AUTO) 59.2 % (38.5-71.5); PLATELET COUNT (AUTO) 247 K/uL (152-348); RED BLOOD CELL COUNT(AUTO) 3.86 MIL/uL (4.06-5.63); WHITE BLOOD COUNT (AUTO) 6.5 K/uL (3.6-10.2)
[2019-11-29] MEDS: PANTOPRAZOLE ORAL SUSPENSION 40 MG SUSPDR.PKT GT SCH ×2 (05:58→17:10)
[2019-11-29 06:00] LABS: BILIRUBIN,TOTAL 0.4 mg/dL (0.2-1.0); CREATININE 0.7 mg/dL (0.6-1.3); POTASSIUM 4.2 mmol/L (3.5-5.1); TOTAL PROTEIN, SERUM 7.1 g/dL (6.4-8.2)
[2019-11-29 07:35] VITALS: BP 120/60
[2019-11-29] MEDS: HEPARIN SODIUM,PORCINE 5,000 UNITS/ML VIAL SQ SCH ×2 (08:02→21:36)
[2019-11-29] MEDS: ASPIRIN 81 MG TAB.CHEW GT SCH (08:03)
[2019-11-29] MEDS: NUTRISOURCE FIBER 4 GM PACKET GT SCH (08:03)
[2019-11-29] MEDS: COD LIVER OIL/ZINC OXIDE OINT 113 GM TUBE TP SCH ×2 (08:03→21:33)
[2019-11-29] MEDS: METOPROLOL TARTRATE 25 MG TABLET GT SCH ×2 (08:03→21:00)
[2019-11-29] MEDS: ACIDOPHILUS/BULGARICUS CHEW TAB GT SCH ×2 (08:03→21:30)
[2019-11-29] MEDS: LOSARTAN POTASSIUM 50 MG TABLET GT SCH (08:03)
[2019-11-29] MEDS: HYDROGEN PEROXIDE 3% 118 ML BOTTLE TP SCH ×2 (08:48→21:10)
[2019-11-29 20:45] VITALS: BP 104/59
[2019-11-29] MEDS: ATORVASTATIN 20 MG TABLET GT SCH (21:30)
[2019-11-29] MEDS: MULTIVIT, IRON, MIN NO. 8, FA TABLET GT SCH (21:31)
[2019-11-30] MEDS: ALBUTEROL SULFATE 2.5 MG/3 ML NEBU NEB SCH ×4 (01:21→20:10)
[2019-11-30] MEDS: PANTOPRAZOLE ORAL SUSPENSION 40 MG SUSPDR.PKT GT SCH ×2 (06:23→17:17)
[2019-11-30 07:50] VITALS: BP 120/51
[2019-11-30 07:53] VITALS: BP 122/49
[2019-11-30] MEDS: ACIDOPHILUS/BULGARICUS CHEW TAB GT SCH ×2 (08:58→20:15)
[2019-11-30] MEDS: ASPIRIN 81 MG TAB.CHEW GT SCH (08:58)
[2019-11-30] MEDS: LOSARTAN POTASSIUM 50 MG TABLET GT SCH (08:58)
[2019-11-30] MEDS: METOPROLOL TARTRATE 25 MG TABLET GT SCH ×2 (08:58→20:15)
[2019-11-30] MEDS: NUTRISOURCE FIBER 4 GM PACKET GT SCH (08:59)
[2019-11-30] MEDS: COD LIVER OIL/ZINC OXIDE OINT 113 GM TUBE TP SCH ×2 (08:59→20:15)
[2019-11-30] MEDS: HYDROGEN PEROXIDE 3% 118 ML BOTTLE TP SCH ×2 (09:00→21:59)
[2019-11-30] MEDS: HEPARIN SODIUM,PORCINE 5,000 UNITS/ML VIAL SQ SCH ×2 (09:00→20:15)
[2019-11-30] MEDS: VITAL AF 1.2 1,000 ML LIQUID GT PRN (11:39)
[2019-11-30] MEDS: ATORVASTATIN 20 MG TABLET GT SCH (20:15)
[2019-11-30 20:30] VITALS: BP 126/57
[2019-12-01] MEDS: ALBUTEROL SULFATE 2.5 MG/3 ML NEBU NEB SCH ×4 (01:41→19:46)
[2019-12-01] MEDS: PANTOPRAZOLE ORAL SUSPENSION 40 MG SUSPDR.PKT GT SCH ×2 (05:39→17:27)
[2019-12-01 07:54] VITALS: BP 132/67
[2019-12-01] MEDS: LOSARTAN POTASSIUM 50 MG TABLET GT SCH (08:44)
[2019-12-01] MEDS: METOPROLOL TARTRATE 25 MG TABLET GT SCH ×2 (08:44→20:07)
[2019-12-01] MEDS: ASPIRIN 81 MG TAB.CHEW GT SCH (08:44)
[2019-12-01] MEDS: NUTRISOURCE FIBER 4 GM PACKET GT SCH (08:45)
[2019-12-01] MEDS: ACIDOPHILUS/BULGARICUS CHEW TAB GT SCH ×2 (08:45→20:07)
[2019-12-01] MEDS: COD LIVER OIL/ZINC OXIDE OINT 113 GM TUBE TP SCH ×2 (08:46→20:08)
[2019-12-01] MEDS: HEPARIN SODIUM,PORCINE 5,000 UNITS/ML VIAL SQ SCH ×2 (08:48→20:08)
[2019-12-01] MEDS: HYDROGEN PEROXIDE 3% 118 ML BOTTLE TP SCH ×2 (10:00→21:24)
[2019-12-01] MEDS: VITAL AF 1.2 1,000 ML LIQUID GT PRN (10:00)
[2019-12-01] MEDS: ATORVASTATIN 20 MG TABLET GT SCH (20:07)
[2019-12-01] MEDS: MULTIVIT, IRON, MIN NO. 8, FA TABLET GT SCH (20:08)
[2019-12-01 20:16] VITALS: BP 125/50
[2019-12-02] MEDS: ALBUTEROL SULFATE 2.5 MG/3 ML NEBU NEB SCH ×4 (01:03→20:23)
[2019-12-02] MEDS: VITAL AF 1.2 1,000 ML LIQUID GT PRN ×2 (01:57→22:50)
[2019-12-02] MEDS: PANTOPRAZOLE ORAL SUSPENSION 40 MG SUSPDR.PKT GT SCH ×2 (05:24→17:00)
[2019-12-02 07:39] VITALS: BP 116/51
[2019-12-02] MEDS: METOPROLOL TARTRATE 25 MG TABLET GT SCH ×2 (09:00→20:36)
[2019-12-02] MEDS: LOSARTAN POTASSIUM 50 MG TABLET GT SCH (09:00)
[2019-12-02] MEDS: ASPIRIN 81 MG TAB.CHEW GT SCH (09:12)
[2019-12-02] MEDS: ACIDOPHILUS/BULGARICUS CHEW TAB GT SCH ×2 (09:12→20:36)
[2019-12-02] MEDS: NUTRISOURCE FIBER 4 GM PACKET GT SCH (09:13)
[2019-12-02] MEDS: HEPARIN SODIUM,PORCINE 5,000 UNITS/ML VIAL SQ SCH ×2 (09:15→20:36)
[2019-12-02] MEDS: COD LIVER OIL/ZINC OXIDE OINT 113 GM TUBE TP SCH ×2 (09:15→20:36)
[2019-12-02] MEDS: HYDROGEN PEROXIDE 3% 118 ML BOTTLE TP SCH ×2 (09:30→21:27)
[2019-12-02] MEDS: ATORVASTATIN 20 MG TABLET GT SCH (20:36)
[2019-12-02 20:39] VITALS: BP 129/60
[2019-12-03] MEDS: ALBUTEROL SULFATE 2.5 MG/3 ML NEBU NEB SCH ×4 (01:07→19:28)
[2019-12-03] MEDS: PANTOPRAZOLE ORAL SUSPENSION 40 MG SUSPDR.PKT GT SCH ×2 (05:31→17:31)
[2019-12-03 07:34] VITALS: BP 121/60
[2019-12-03] MEDS: ASPIRIN 81 MG TAB.CHEW GT SCH (08:17)
[2019-12-03] MEDS: METOPROLOL TARTRATE 25 MG TABLET GT SCH ×2 (08:18→21:00)
[2019-12-03] MEDS: COD LIVER OIL/ZINC OXIDE OINT 113 GM TUBE TP SCH ×2 (08:18→21:36)
[2019-12-03] MEDS: LOSARTAN POTASSIUM 50 MG TABLET GT SCH (08:18)
[2019-12-03] MEDS: HEPARIN SODIUM,PORCINE 5,000 UNITS/ML VIAL SQ SCH ×2 (08:18→21:35)
[2019-12-03] MEDS: ACIDOPHILUS/BULGARICUS CHEW TAB GT SCH ×2 (08:18→21:29)
[2019-12-03] MEDS: NUTRISOURCE FIBER 4 GM PACKET GT SCH (08:18)
[2019-12-03] MEDS: HYDROGEN PEROXIDE 3% 118 ML BOTTLE TP SCH ×2 (09:31→21:00)
[2019-12-03 20:40] VITALS: BP 102/41
[2019-12-03] MEDS: ATORVASTATIN 20 MG TABLET GT SCH (21:31)
[2019-12-03] MEDS: MULTIVIT, IRON, MIN NO. 8, FA TABLET GT SCH (21:33)
[2019-12-04] MEDS: ALBUTEROL SULFATE 2.5 MG/3 ML NEBU NEB SCH ×4 (00:55→19:38)
[2019-12-04] MEDS: PANTOPRAZOLE ORAL SUSPENSION 40 MG SUSPDR.PKT GT SCH ×2 (06:00→17:30)
[2019-12-04 07:38] VITALS: BP 103/63
[2019-12-04] MEDS: NUTRISOURCE FIBER 4 GM PACKET GT SCH (08:47)
[2019-12-04] MEDS: ASPIRIN 81 MG TAB.CHEW GT SCH (08:47)
[2019-12-04] MEDS: METOPROLOL TARTRATE 25 MG TABLET GT SCH ×3 (08:47→20:17)
[2019-12-04] MEDS: LOSARTAN POTASSIUM 50 MG TABLET GT SCH ×2 (08:47→09:06)
[2019-12-04] MEDS: ACIDOPHILUS/BULGARICUS CHEW TAB GT SCH ×2 (08:47→20:14)
[2019-12-04] MEDS: HEPARIN SODIUM,PORCINE 5,000 UNITS/ML VIAL SQ SCH ×2 (08:49→20:18)
[2019-12-04] MEDS: COD LIVER OIL/ZINC OXIDE OINT 113 GM TUBE TP SCH ×2 (08:49→20:18)
--- NOTE | 2019-12-04 09:15 | NUR ---
SW received an email from patient's [id number] Gin, in response to the email that this SW had sent on 11/27 (see previous SS note). Gin stated that she would like to participate in the patient's IDT meeting today, thru speaker phone. SW to contact Gin via telephone during the meeting.
[2019-12-04] MEDS: HYDROGEN PEROXIDE 3% 118 ML BOTTLE TP SCH ×2 (09:51→21:00)
--- NOTE | 2019-12-04 14:56 | NUR ---
INTERDISCIPLINARY PLAN OF CARE CONFERENCE was held today. Patient's [id number] Gin participated in the meeting through speaker phone. Dr. Leary and the Interdisciplinary Team reviewed the current plan of care in detail. RN reported on patient's medical condition, recent lab findings, and changes in patient's BP medications. No major changes in condition were reported. See RN IDT conference notes. Pharmacy also discussed changes in some of patient's medications. See all disciplines IDT notes and physician's progress notes for additional details. Gin stated not having any questions or concerns, and expressed agreement with the ongoing plan of care.
--- NOTE | 2019-12-04 16:47 | NUR ---
Pharmacy Update from Today's 12/04/19 IDT meeting VS: Temp 97.9 BP 121/60 HR 62 LABS: (from 11/29/19) Wbc 6.5 H/H 12.6/36.8 Plt 247 Na 135 K 4.2 Cl 100 CO2 29 BUN/SCr 20/0.7 BS 119 Ca 8.7 MEDICATION USE REVIEWED: > Pt not on any anti-psych medications or anti-seizure medications > Pt on heparin 5000units q12hr. Last plt 247, dosing appropriate for renal fxn. No bleeding noted > Pt on BP meds with hold parameters, well controlled, last BP wnl Cozaar 50mg daily (hold SBP <120), Lopressor 25mg q12hr (hold SBP <110 or HR <60) Note: (DF) does not want to d/c or change current BP medications d/t patient's CAD and PMH of intraventricular hemorrhage/embolism despite episodes of low BP. Patient's BP is well controlled with hold parameters at this time. >PRN MED USAGE (October) Tylenol for pain used x 0 Tylenol for temp used x 0 Artificial tears used x 0 NEW ORDERS NOTED: > Covid test 11/06 negative > Lopressor decreased 50mg to 25mg q12hr 11/22 Patient reviewed and discussed in depth with no medication issues or changes noted per staff. Family in attendance via phone conference (d/t covid regulations) with no medication concerns at this time as well. Rx reported medication changes, vitals improved since HTN med adjustment. No further recs at this time, remains stable otherwise. Will follow
[2019-12-04 20:11] VITALS: BP 106/64
[2019-12-04] MEDS: ATORVASTATIN 20 MG TABLET GT SCH (20:14)
[2019-12-05] MEDS: ALBUTEROL SULFATE 2.5 MG/3 ML NEBU NEB SCH ×4 (02:05→20:32)
[2019-12-05] MEDS: VITAL AF 1.2 1,000 ML LIQUID GT PRN (03:39)
[2019-12-05] MEDS: PANTOPRAZOLE ORAL SUSPENSION 40 MG SUSPDR.PKT GT SCH ×2 (05:31→18:17)
[2019-12-05 07:49] VITALS: BP 93/49
[2019-12-05] MEDS: METOPROLOL TARTRATE 25 MG TABLET GT SCH ×2 (09:00→20:01)
[2019-12-05] MEDS: LOSARTAN POTASSIUM 50 MG TABLET GT SCH (09:00)
[2019-12-05] MEDS: ACIDOPHILUS/BULGARICUS CHEW TAB GT SCH ×2 (09:31→20:01)
[2019-12-05] MEDS: ASPIRIN 81 MG TAB.CHEW GT SCH (09:31)
[2019-12-05] MEDS: NUTRISOURCE FIBER 4 GM PACKET GT SCH (09:33)
[2019-12-05] MEDS: COD LIVER OIL/ZINC OXIDE OINT 113 GM TUBE TP SCH ×2 (09:34→20:03)
[2019-12-05] MEDS: HEPARIN SODIUM,PORCINE 5,000 UNITS/ML VIAL SQ SCH ×2 (09:36→20:03)
[2019-12-05] MEDS: HYDROGEN PEROXIDE 3% 118 ML BOTTLE TP SCH ×2 (09:40→21:20)
[2019-12-05] MEDS: MULTIVIT, IRON, MIN NO. 8, FA TABLET GT SCH (20:01)
[2019-12-05] MEDS: ATORVASTATIN 20 MG TABLET GT SCH (20:01)
[2019-12-05 20:10] VITALS: BP 100/50
[2019-12-06] MEDS: ALBUTEROL SULFATE 2.5 MG/3 ML NEBU NEB SCH ×4 (01:09→19:32)
[2019-12-06] MEDS: VITAL AF 1.2 1,000 ML LIQUID GT PRN (04:00)
[2019-12-06] MEDS: PANTOPRAZOLE ORAL SUSPENSION 40 MG SUSPDR.PKT GT SCH ×2 (06:57→17:44)
[2019-12-06 07:34] VITALS: BP 117/74
[2019-12-06] MEDS: LOSARTAN POTASSIUM 50 MG TABLET GT SCH (08:57)
[2019-12-06] MEDS: ACIDOPHILUS/BULGARICUS CHEW TAB GT SCH ×2 (08:57→20:30)
[2019-12-06] MEDS: ASPIRIN 81 MG TAB.CHEW GT SCH (08:57)
[2019-12-06] MEDS: NUTRISOURCE FIBER 4 GM PACKET GT SCH (08:58)
[2019-12-06] MEDS: METOPROLOL TARTRATE 25 MG TABLET GT SCH ×2 (08:58→20:31)
[2019-12-06] MEDS: COD LIVER OIL/ZINC OXIDE OINT 113 GM TUBE TP SCH ×2 (08:58→20:34)
[2019-12-06] MEDS: HEPARIN SODIUM,PORCINE 5,000 UNITS/ML VIAL SQ SCH ×2 (09:00→20:32)
[2019-12-06] MEDS: HYDROGEN PEROXIDE 3% 118 ML BOTTLE TP SCH ×2 (09:00→21:14)
--- NOTE | 2019-12-06 16:21 | NUR ---
PT. WAS SEEN AND EXAMINED BY DR. GUTIERREZ AND WITH NEW ORDERS CARRIED OUT.
[2019-12-06 20:05] VITALS: BP 124/61
[2019-12-06] MEDS: ATORVASTATIN 20 MG TABLET GT SCH (20:30)
[2019-12-07] MEDS: ALBUTEROL SULFATE 2.5 MG/3 ML NEBU NEB SCH ×4 (00:42→19:40)
[2019-12-07] MEDS: VITAL AF 1.2 1,000 ML LIQUID GT PRN ×2 (01:45→21:50)
[2019-12-07] MEDS: PANTOPRAZOLE ORAL SUSPENSION 40 MG SUSPDR.PKT GT SCH ×2 (05:02→17:14)
[2019-12-07 07:35] VITALS: BP 122/71
[2019-12-07] MEDS: HYDROGEN PEROXIDE 3% 118 ML BOTTLE TP SCH ×2 (08:14→21:09)
[2019-12-07] MEDS: LOSARTAN POTASSIUM 50 MG TABLET GT SCH (08:19)
[2019-12-07] MEDS: ACIDOPHILUS/BULGARICUS CHEW TAB GT SCH ×2 (08:19→20:58)
[2019-12-07] MEDS: NUTRISOURCE FIBER 4 GM PACKET GT SCH (08:19)
[2019-12-07] MEDS: ASPIRIN 81 MG TAB.CHEW GT SCH (08:19)
[2019-12-07] MEDS: METOPROLOL TARTRATE 25 MG TABLET GT SCH ×2 (08:19→20:58)
[2019-12-07] MEDS: COD LIVER OIL/ZINC OXIDE OINT 113 GM TUBE TP SCH ×2 (08:20→20:59)
[2019-12-07] MEDS: HEPARIN SODIUM,PORCINE 5,000 UNITS/ML VIAL SQ SCH ×2 (08:20→20:58)
[2019-12-07] MEDS: ATORVASTATIN 20 MG TABLET GT SCH (20:58)
[2019-12-07] MEDS: MULTIVIT, IRON, MIN NO. 8, FA TABLET GT SCH (20:59)
[2019-12-07 22:39] VITALS: BP 110/58
[2019-12-08] MEDS: ALBUTEROL SULFATE 2.5 MG/3 ML NEBU NEB SCH ×4 (01:07→19:48)
[2019-12-08] MEDS: PANTOPRAZOLE ORAL SUSPENSION 40 MG SUSPDR.PKT GT SCH ×2 (05:09→17:14)
[2019-12-08 07:34] VITALS: BP 113/74
[2019-12-08] MEDS: LOSARTAN POTASSIUM 50 MG TABLET GT SCH (08:00)
[2019-12-08] MEDS: METOPROLOL TARTRATE 25 MG TABLET GT SCH ×2 (08:01→20:53)
[2019-12-08] MEDS: NUTRISOURCE FIBER 4 GM PACKET GT SCH (08:02)
[2019-12-08] MEDS: COD LIVER OIL/ZINC OXIDE OINT 113 GM TUBE TP SCH ×2 (08:02→20:53)
[2019-12-08] MEDS: ACIDOPHILUS/BULGARICUS CHEW TAB GT SCH ×2 (08:02→20:53)
[2019-12-08] MEDS: ASPIRIN 81 MG TAB.CHEW GT SCH (08:07)
[2019-12-08] MEDS: HEPARIN SODIUM,PORCINE 5,000 UNITS/ML VIAL SQ SCH ×2 (08:09→20:54)
[2019-12-08] MEDS: HYDROGEN PEROXIDE 3% 118 ML BOTTLE TP SCH ×2 (09:00→21:42)
[2019-12-08] MEDS: VITAL AF 1.2 1,000 ML LIQUID GT PRN (18:04)
[2019-12-08] MEDS: ATORVASTATIN 20 MG TABLET GT SCH (20:53)
[2019-12-08 21:56] VITALS: BP 110/51
[2019-12-09] MEDS: ALBUTEROL SULFATE 2.5 MG/3 ML NEBU NEB SCH ×4 (01:57→19:56)
[2019-12-09] MEDS: PANTOPRAZOLE ORAL SUSPENSION 40 MG SUSPDR.PKT GT SCH ×2 (05:06→17:33)
[2019-12-09 08:00] VITALS: BP 114/41
[2019-12-09] MEDS: HYDROGEN PEROXIDE 3% 118 ML BOTTLE TP SCH ×2 (09:00→21:27)
[2019-12-09] MEDS: LOSARTAN POTASSIUM 50 MG TABLET GT SCH (09:00)
[2019-12-09] MEDS: METOPROLOL TARTRATE 25 MG TABLET GT SCH ×2 (09:00→20:26)
[2019-12-09] MEDS: ASPIRIN 81 MG TAB.CHEW GT SCH (09:16)
[2019-12-09] MEDS: NUTRISOURCE FIBER 4 GM PACKET GT SCH (09:17)
[2019-12-09] MEDS: ACIDOPHILUS/BULGARICUS CHEW TAB GT SCH ×2 (09:17→20:25)
[2019-12-09] MEDS: COD LIVER OIL/ZINC OXIDE OINT 113 GM TUBE TP SCH ×2 (09:18→20:27)
[2019-12-09] MEDS: HEPARIN SODIUM,PORCINE 5,000 UNITS/ML VIAL SQ SCH ×2 (09:18→20:16)
[2019-12-09] MEDS: ATORVASTATIN 20 MG TABLET GT SCH (20:25)
[2019-12-09] MEDS: MULTIVIT, IRON, MIN NO. 8, FA TABLET GT SCH (20:27)
[2019-12-09 22:33] VITALS: BP 108/56
[2019-12-10] MEDS: ALBUTEROL SULFATE 2.5 MG/3 ML NEBU NEB SCH ×4 (02:01→19:56)
[2019-12-10] MEDS: PANTOPRAZOLE ORAL SUSPENSION 40 MG SUSPDR.PKT GT SCH ×2 (05:27→17:17)
[2019-12-10 07:40] LABS: CREATININE 0.8 mg/dL (0.6-1.3); POTASSIUM 3.7 mmol/L (3.5-5.1)
[2019-12-10 07:46] VITALS: BP 119/42
[2019-12-10] MEDS: HYDROGEN PEROXIDE 3% 118 ML BOTTLE TP SCH ×2 (08:30→21:39)
[2019-12-10] MEDS: ASPIRIN 81 MG TAB.CHEW GT SCH (08:55)
[2019-12-10] MEDS: METOPROLOL TARTRATE 25 MG TABLET GT SCH ×2 (08:56→20:24)
[2019-12-10] MEDS: LOSARTAN POTASSIUM 50 MG TABLET GT SCH (08:56)
[2019-12-10] MEDS: ACIDOPHILUS/BULGARICUS CHEW TAB GT SCH ×2 (08:56→20:22)
[2019-12-10] MEDS: HEPARIN SODIUM,PORCINE 5,000 UNITS/ML VIAL SQ SCH ×2 (08:57→20:21)
[2019-12-10] MEDS: NUTRISOURCE FIBER 4 GM PACKET GT SCH (08:57)
[2019-12-10] MEDS: COD LIVER OIL/ZINC OXIDE OINT 113 GM TUBE TP SCH ×2 (08:58→20:25)
[2019-12-10] MEDS: VITAL AF 1.2 1,000 ML LIQUID GT PRN (17:18)
--- NOTE | 2019-12-10 17:59 | NUR ---
zoom chat with daughter.
[2019-12-10 20:20] VITALS: BP 129/44
[2019-12-10] MEDS: ATORVASTATIN 20 MG TABLET GT SCH (20:23)
[2019-12-11] MEDS: ALBUTEROL SULFATE 2.5 MG/3 ML NEBU NEB SCH ×4 (01:46→19:31)
[2019-12-11] MEDS: PANTOPRAZOLE ORAL SUSPENSION 40 MG SUSPDR.PKT GT SCH ×2 (05:08→17:07)
[2019-12-11 06:56] LABS: BASOPHILS % (AUTO) 0.9 % (0.0-2.0); EOSINOPHILS # (AUTO) 0.5 K/uL (0.0-0.7); HEMATOCRIT 37.6 % (36.7-47.1); LYMPHOCYTES # (AUTO) 1.6 K/uL (20.0-40.0); LYMPHOCYTES % (AUTO) 28.1 % (20.5-51.5); MEAN CORPUSCULAR HEMOGLOBIN 32.6 uug (23.8-33.4); MEAN CORPUSCULAR HGB CONC 35 g/dL (32.5-36.3); MEAN CORPUSCULAR VOLUME 94.1 fL (73.0-96.2); MONOCYTES # (AUTO) 0.4 K/uL (2.0-10.0); MONOCYTES % (AUTO) 6.2 % (0.0-11.0); NEUTROPHILS # (AUTO) 3.2 K/uL (1.8-8.9); NEUTROPHILS % (AUTO) 55.8 % (38.5-71.5); PLATELET COUNT (AUTO) 249 K/uL (152-348); WHITE BLOOD COUNT (AUTO) 5.7 K/uL (3.6-10.2)
[2019-12-11 07:05] LABS: CREATININE 0.6 mg/dL (0.6-1.3); POTASSIUM 4.2 mmol/L (3.5-5.1)
[2019-12-11 07:27] VITALS: BP 99/61
[2019-12-11] MEDS: ASPIRIN 81 MG TAB.CHEW GT SCH (08:15)
[2019-12-11] MEDS: HEPARIN SODIUM,PORCINE 5,000 UNITS/ML VIAL SQ SCH ×2 (08:16→20:24)
[2019-12-11] MEDS: ACIDOPHILUS/BULGARICUS CHEW TAB GT SCH ×2 (08:16→20:24)
[2019-12-11] MEDS: LOSARTAN POTASSIUM 50 MG TABLET GT SCH (08:17)
[2019-12-11] MEDS: NUTRISOURCE FIBER 4 GM PACKET GT SCH (08:18)
[2019-12-11] MEDS: COD LIVER OIL/ZINC OXIDE OINT 113 GM TUBE TP SCH ×2 (08:18→20:27)
[2019-12-11] MEDS: METOPROLOL TARTRATE 25 MG TABLET GT SCH ×2 (08:18→20:26)
[2019-12-11] MEDS: HYDROGEN PEROXIDE 3% 118 ML BOTTLE TP SCH ×2 (09:45→21:29)
--- NOTE | 2019-12-11 12:00 | NUR ---
SEEN BY ENOCH Reyes AND WITH NNO.
--- NOTE | 2019-12-11 14:30 | NUR ---
VIDEO CHAT DONE WITH PATIENT'S SON AT THIS TIME.
[2019-12-11 20:00] VITALS: BP 11/63
[2019-12-11] MEDS: ATORVASTATIN 20 MG TABLET GT SCH (20:25)
[2019-12-11] MEDS: MULTIVIT, IRON, MIN NO. 8, FA TABLET GT SCH (20:27)
[2019-12-12] MEDS: ALBUTEROL SULFATE 2.5 MG/3 ML NEBU NEB SCH ×4 (01:01→19:52)
[2019-12-12] MEDS: VITAL AF 1.2 1,000 ML LIQUID GT PRN (02:50)
[2019-12-12] MEDS: PANTOPRAZOLE ORAL SUSPENSION 40 MG SUSPDR.PKT GT SCH ×2 (05:08→17:17)
[2019-12-12 07:51] VITALS: BP 137/64
[2019-12-12] MEDS: ASPIRIN 81 MG TAB.CHEW GT SCH (08:34)
[2019-12-12] MEDS: HEPARIN SODIUM,PORCINE 5,000 UNITS/ML VIAL SQ SCH ×2 (08:35→20:20)
[2019-12-12] MEDS: COD LIVER OIL/ZINC OXIDE OINT 113 GM TUBE TP SCH ×2 (08:36→20:21)
[2019-12-12] MEDS: NUTRISOURCE FIBER 4 GM PACKET GT SCH (08:36)
[2019-12-12] MEDS: ACIDOPHILUS/BULGARICUS CHEW TAB GT SCH ×2 (08:36→20:21)
[2019-12-12] MEDS: LOSARTAN POTASSIUM 50 MG TABLET GT SCH (08:43)
[2019-12-12] MEDS: METOPROLOL TARTRATE 25 MG TABLET GT SCH ×2 (08:43→20:20)
[2019-12-12] MEDS: HYDROGEN PEROXIDE 3% 118 ML BOTTLE TP SCH ×2 (09:51→21:21)
[2019-12-12 20:00] VITALS: BP 212/58
[2019-12-12] MEDS: ATORVASTATIN 20 MG TABLET GT SCH (20:21)
[2019-12-13] MEDS: ALBUTEROL SULFATE 2.5 MG/3 ML NEBU NEB SCH ×4 (00:54→20:05)
[2019-12-13] MEDS: VITAL AF 1.2 1,000 ML LIQUID GT PRN (06:31)
[2019-12-13] MEDS: PANTOPRAZOLE ORAL SUSPENSION 40 MG SUSPDR.PKT GT SCH ×2 (06:31→17:38)
[2019-12-13 07:47] VITALS: BP 119/59
[2019-12-13] MEDS: ACIDOPHILUS/BULGARICUS CHEW TAB GT SCH ×2 (08:32→20:31)
[2019-12-13] MEDS: ASPIRIN 81 MG TAB.CHEW GT SCH (08:32)
[2019-12-13] MEDS: LOSARTAN POTASSIUM 50 MG TABLET GT SCH (08:32)
[2019-12-13] MEDS: METOPROLOL TARTRATE 25 MG TABLET GT SCH ×2 (08:34→20:35)
[2019-12-13] MEDS: NUTRISOURCE FIBER 4 GM PACKET GT SCH (08:35)
[2019-12-13] MEDS: HEPARIN SODIUM,PORCINE 5,000 UNITS/ML VIAL SQ SCH ×2 (08:35→20:36)
[2019-12-13] MEDS: COD LIVER OIL/ZINC OXIDE OINT 113 GM TUBE TP SCH ×2 (08:37→20:35)
[2019-12-13] MEDS: HYDROGEN PEROXIDE 3% 118 ML BOTTLE TP SCH ×2 (10:05→21:00)
[2019-12-13 20:00] VITALS: BP 115/67
[2019-12-13] MEDS: ATORVASTATIN 20 MG TABLET GT SCH (20:34)
[2019-12-13] MEDS: MULTIVIT, IRON, MIN NO. 8, FA TABLET GT SCH (20:35)
[2019-12-14] MEDS: ALBUTEROL SULFATE 2.5 MG/3 ML NEBU NEB SCH ×4 (01:54→19:50)
[2019-12-14] MEDS: VITAL AF 1.2 1,000 ML LIQUID GT PRN ×2 (02:21→23:52)
[2019-12-14] MEDS: PANTOPRAZOLE ORAL SUSPENSION 40 MG SUSPDR.PKT GT SCH ×2 (05:22→17:32)
[2019-12-14 07:45] VITALS: BP 130/70
[2019-12-14] MEDS: ASPIRIN 81 MG TAB.CHEW GT SCH (08:05)
[2019-12-14] MEDS: ACIDOPHILUS/BULGARICUS CHEW TAB GT SCH ×2 (08:05→20:42)
[2019-12-14] MEDS: LOSARTAN POTASSIUM 50 MG TABLET GT SCH (08:05)
[2019-12-14] MEDS: METOPROLOL TARTRATE 25 MG TABLET GT SCH ×2 (08:05→20:42)
[2019-12-14] MEDS: COD LIVER OIL/ZINC OXIDE OINT 113 GM TUBE TP SCH ×2 (08:06→20:44)
[2019-12-14] MEDS: NUTRISOURCE FIBER 4 GM PACKET GT SCH (08:06)
[2019-12-14] MEDS: HEPARIN SODIUM,PORCINE 5,000 UNITS/ML VIAL SQ SCH ×2 (08:06→20:44)
[2019-12-14] MEDS: HYDROGEN PEROXIDE 3% 118 ML BOTTLE TP SCH ×2 (08:16→21:31)
[2019-12-14 20:34] VITALS: BP 104/56
[2019-12-14] MEDS: ATORVASTATIN 20 MG TABLET GT SCH (20:42)
[2019-12-15] MEDS: ALBUTEROL SULFATE 2.5 MG/3 ML NEBU NEB SCH ×4 (00:56→20:06)
[2019-12-15] MEDS: PANTOPRAZOLE ORAL SUSPENSION 40 MG SUSPDR.PKT GT SCH ×2 (06:01→17:36)
[2019-12-15 07:32] VITALS: BP 120/63
[2019-12-15] MEDS: ASPIRIN 81 MG TAB.CHEW GT SCH (08:36)
[2019-12-15] MEDS: ACIDOPHILUS/BULGARICUS CHEW TAB GT SCH ×2 (08:37→20:27)
[2019-12-15] MEDS: LOSARTAN POTASSIUM 50 MG TABLET GT SCH (08:38)
[2019-12-15] MEDS: METOPROLOL TARTRATE 25 MG TABLET GT SCH ×2 (08:39→20:27)
[2019-12-15] MEDS: NUTRISOURCE FIBER 4 GM PACKET GT SCH (08:40)
[2019-12-15] MEDS: HEPARIN SODIUM,PORCINE 5,000 UNITS/ML VIAL SQ SCH ×2 (08:41→20:28)
[2019-12-15] MEDS: COD LIVER OIL/ZINC OXIDE OINT 113 GM TUBE TP SCH ×2 (08:43→20:28)
[2019-12-15] MEDS: HYDROGEN PEROXIDE 3% 118 ML BOTTLE TP SCH ×2 (09:00→20:07)
--- NOTE | 2019-12-15 11:00 | NUR ---
New orders from Dr Sanchez carried out.
[2019-12-15] MEDS: VITAL AF 1.2 1,000 ML LIQUID GT PRN (17:36)
[2019-12-15] MEDS: ATORVASTATIN 20 MG TABLET GT SCH (20:27)
[2019-12-15] MEDS: MULTIVIT, IRON, MIN NO. 8, FA TABLET GT SCH (20:28)
[2019-12-15 23:24] VITALS: BP 96/48
[2019-12-16] MEDS: ALBUTEROL SULFATE 2.5 MG/3 ML NEBU NEB SCH ×4 (01:36→19:19)
[2019-12-16] MEDS: PANTOPRAZOLE ORAL SUSPENSION 40 MG SUSPDR.PKT GT SCH ×2 (05:53→17:07)
[2019-12-16 07:43] VITALS: BP 105/38
[2019-12-16] MEDS: ASPIRIN 81 MG TAB.CHEW GT SCH (08:28)
[2019-12-16] MEDS: LOSARTAN POTASSIUM 50 MG TABLET GT SCH (08:29)
[2019-12-16] MEDS: ACIDOPHILUS/BULGARICUS CHEW TAB GT SCH ×2 (08:31→20:39)
[2019-12-16] MEDS: METOPROLOL TARTRATE 25 MG TABLET GT SCH ×2 (08:31→20:40)
[2019-12-16] MEDS: NUTRISOURCE FIBER 4 GM PACKET GT SCH (08:32)
[2019-12-16] MEDS: HEPARIN SODIUM,PORCINE 5,000 UNITS/ML VIAL SQ SCH ×2 (08:35→20:34)
[2019-12-16] MEDS: COD LIVER OIL/ZINC OXIDE OINT 113 GM TUBE TP SCH ×2 (08:36→20:40)
[2019-12-16] MEDS: HYDROGEN PEROXIDE 3% 118 ML BOTTLE TP SCH ×2 (08:59→19:19)
[2019-12-16] MEDS: VITAL AF 1.2 1,000 ML LIQUID GT PRN (17:07)
[2019-12-16] MEDS: ATORVASTATIN 20 MG TABLET GT SCH (20:40)
[2019-12-16 22:28] VITALS: BP 115/52
[2019-12-17] MEDS: ALBUTEROL SULFATE 2.5 MG/3 ML NEBU NEB SCH ×4 (00:36→20:04)
[2019-12-17] MEDS: PANTOPRAZOLE ORAL SUSPENSION 40 MG SUSPDR.PKT GT SCH ×2 (06:49→17:27)
[2019-12-17 07:09] LABS: BASOPHILS # (AUTO) 0.1 K/uL (0.0-8.0); BASOPHILS % (AUTO) 1.3 % (0.0-2.0); EOSINOPHILS # (AUTO) 0.6 K/uL (0.0-0.7); EOSINOPHILS % (AUTO) 11.8 % (0.0-7.0); HEMATOCRIT 37.4 % (36.7-47.1); HEMOGLOBIN 12.7 g/dL (12.5-16.3); LYMPHOCYTES # (AUTO) 1.4 K/uL (20.0-40.0); LYMPHOCYTES % (AUTO) 29.6 % (20.5-51.5); MEAN CORPUSCULAR HEMOGLOBIN 32.7 uug (23.8-33.4); MEAN CORPUSCULAR HGB CONC 34 g/dL (32.5-36.3); MONOCYTES # (AUTO) 0.4 K/uL (2.0-10.0); MONOCYTES % (AUTO) 8.9 % (0.0-11.0); NEUTROPHILS # (AUTO) 2.3 K/uL (1.8-8.9); NEUTROPHILS % (AUTO) 48.4 % (38.5-71.5); PLATELET COUNT (AUTO) 250 K/uL (152-348); WHITE BLOOD COUNT (AUTO) 4.8 K/uL (3.6-10.2)
[2019-12-17 07:16] LABS: CREATININE 0.7 mg/dL (0.6-1.3); MAGNESIUM 2.1 mg/dL (1.8-2.4); PHOSPHOROUS 3.5 mg/dL (2.5-4.9); POTASSIUM 4.4 mmol/L (3.5-5.1)
[2019-12-17] MEDS: HYDROGEN PEROXIDE 3% 118 ML BOTTLE TP SCH ×2 (07:33→20:04)
[2019-12-17] MEDS: METOPROLOL TARTRATE 25 MG TABLET GT SCH ×2 (08:02→20:40)
[2019-12-17] MEDS: LOSARTAN POTASSIUM 50 MG TABLET GT SCH (08:02)
[2019-12-17] MEDS: ASPIRIN 81 MG TAB.CHEW GT SCH (08:02)
[2019-12-17] MEDS: ACIDOPHILUS/BULGARICUS CHEW TAB GT SCH ×2 (08:02→20:39)
[2019-12-17] MEDS: NUTRISOURCE FIBER 4 GM PACKET GT SCH (08:03)
[2019-12-17] MEDS: HEPARIN SODIUM,PORCINE 5,000 UNITS/ML VIAL SQ SCH ×2 (08:03→20:40)
[2019-12-17] MEDS: COD LIVER OIL/ZINC OXIDE OINT 113 GM TUBE TP SCH ×2 (08:03→20:40)
[2019-12-17 08:16] VITALS: BP 106/49
[2019-12-17] MEDS: VITAL AF 1.2 1,000 ML LIQUID GT PRN (11:39)
[2019-12-17] MEDS: ATORVASTATIN 20 MG TABLET GT SCH (20:39)
[2019-12-17] MEDS: MULTIVIT, IRON, MIN NO. 8, FA TABLET GT SCH (20:40)
[2019-12-17 20:49] VITALS: BP 132/60
[2019-12-18] MEDS: ALBUTEROL SULFATE 2.5 MG/3 ML NEBU NEB SCH ×4 (01:12→19:50)
[2019-12-18] MEDS: PANTOPRAZOLE ORAL SUSPENSION 40 MG SUSPDR.PKT GT SCH ×2 (06:22→17:11)
[2019-12-18 07:31] VITALS: BP 122/48
[2019-12-18] MEDS: ASPIRIN 81 MG TAB.CHEW GT SCH (08:22)
[2019-12-18] MEDS: ACIDOPHILUS/BULGARICUS CHEW TAB GT SCH ×2 (08:25→21:41)
[2019-12-18] MEDS: LOSARTAN POTASSIUM 50 MG TABLET GT SCH (08:25)
[2019-12-18] MEDS: METOPROLOL TARTRATE 25 MG TABLET GT SCH ×2 (08:25→21:00)
[2019-12-18] MEDS: NUTRISOURCE FIBER 4 GM PACKET GT SCH (08:25)
[2019-12-18] MEDS: COD LIVER OIL/ZINC OXIDE OINT 113 GM TUBE TP SCH ×2 (08:26→21:46)
[2019-12-18] MEDS: HEPARIN SODIUM,PORCINE 5,000 UNITS/ML VIAL SQ SCH ×2 (08:27→21:45)
[2019-12-18] MEDS: HYDROGEN PEROXIDE 3% 118 ML BOTTLE TP SCH ×2 (09:38→21:25)
[2019-12-18] MEDS: VITAL AF 1.2 1,000 ML LIQUID GT PRN (10:52)
[2019-12-18 20:28] VITALS: BP 120/65
[2019-12-18] MEDS: ATORVASTATIN 20 MG TABLET GT SCH (21:41)
[2019-12-19] MEDS: ALBUTEROL SULFATE 2.5 MG/3 ML NEBU NEB SCH ×4 (01:33→19:15)
[2019-12-19] MEDS: VITAL AF 1.2 1,000 ML LIQUID GT PRN (04:56)
[2019-12-19] MEDS: PANTOPRAZOLE ORAL SUSPENSION 40 MG SUSPDR.PKT GT SCH ×2 (05:42→17:05)
[2019-12-19] MEDS: HYDROGEN PEROXIDE 3% 118 ML BOTTLE TP SCH ×2 (07:12→20:54)
[2019-12-19 07:30] VITALS: BP 116/48
[2019-12-19] MEDS: HEPARIN SODIUM,PORCINE 5,000 UNITS/ML VIAL SQ SCH ×2 (08:19→21:47)
[2019-12-19] MEDS: ASPIRIN 81 MG TAB.CHEW GT SCH (08:20)
[2019-12-19] MEDS: ACIDOPHILUS/BULGARICUS CHEW TAB GT SCH ×2 (08:24→21:45)
[2019-12-19] MEDS: NUTRISOURCE FIBER 4 GM PACKET GT SCH (08:24)
[2019-12-19] MEDS: LOSARTAN POTASSIUM 50 MG TABLET GT SCH (08:24)
[2019-12-19] MEDS: METOPROLOL TARTRATE 25 MG TABLET GT SCH ×2 (08:24→21:00)
[2019-12-19] MEDS: COD LIVER OIL/ZINC OXIDE OINT 113 GM TUBE TP SCH ×2 (08:25→21:47)
[2019-12-19 20:04] VITALS: BP 111/61
[2019-12-19] MEDS: ATORVASTATIN 20 MG TABLET GT SCH (21:45)
[2019-12-19] MEDS: MULTIVIT, IRON, MIN NO. 8, FA TABLET GT SCH (21:46)
[2019-12-20] MEDS: ALBUTEROL SULFATE 2.5 MG/3 ML NEBU NEB SCH ×4 (00:44→19:12)
[2019-12-20] MEDS: VITAL AF 1.2 1,000 ML LIQUID GT PRN (02:25)
[2019-12-20] MEDS: PANTOPRAZOLE ORAL SUSPENSION 40 MG SUSPDR.PKT GT SCH ×2 (05:45→17:35)
[2019-12-20] MEDS: HYDROGEN PEROXIDE 3% 118 ML BOTTLE TP SCH ×2 (07:22→19:12)
[2019-12-20 07:44] VITALS: BP 106/55
[2019-12-20] MEDS: NUTRISOURCE FIBER 4 GM PACKET GT SCH (08:30)
[2019-12-20] MEDS: LOSARTAN POTASSIUM 50 MG TABLET GT SCH (08:30)
[2019-12-20] MEDS: ACIDOPHILUS/BULGARICUS CHEW TAB GT SCH ×2 (08:30→21:52)
[2019-12-20] MEDS: METOPROLOL TARTRATE 25 MG TABLET GT SCH ×2 (08:30→21:00)
[2019-12-20] MEDS: ASPIRIN 81 MG TAB.CHEW GT SCH (08:30)
[2019-12-20] MEDS: COD LIVER OIL/ZINC OXIDE OINT 113 GM TUBE TP SCH ×2 (08:31→21:54)
[2019-12-20] MEDS: HEPARIN SODIUM,PORCINE 5,000 UNITS/ML VIAL SQ SCH ×2 (08:31→21:53)
[2019-12-20 20:00] VITALS: BP 129/55
[2019-12-20] MEDS: ATORVASTATIN 20 MG TABLET GT SCH (21:52)
[2019-12-21] MEDS: ALBUTEROL SULFATE 2.5 MG/3 ML NEBU NEB SCH ×4 (00:41→19:35)
[2019-12-21] MEDS: PANTOPRAZOLE ORAL SUSPENSION 40 MG SUSPDR.PKT GT SCH ×2 (06:09→17:22)
[2019-12-21 07:45] VITALS: BP 101/49
[2019-12-21] MEDS: HYDROGEN PEROXIDE 3% 118 ML BOTTLE TP SCH ×2 (08:25→21:28)
[2019-12-21] MEDS: METOPROLOL TARTRATE 25 MG TABLET GT SCH ×2 (09:00→20:11)
[2019-12-21] MEDS: LOSARTAN POTASSIUM 50 MG TABLET GT SCH (09:00)
[2019-12-21] MEDS: ASPIRIN 81 MG TAB.CHEW GT SCH (09:01)
[2019-12-21] MEDS: ACIDOPHILUS/BULGARICUS CHEW TAB GT SCH ×2 (09:03→20:11)
[2019-12-21] MEDS: NUTRISOURCE FIBER 4 GM PACKET GT SCH (09:12)
[2019-12-21] MEDS: COD LIVER OIL/ZINC OXIDE OINT 113 GM TUBE TP SCH ×2 (09:12→20:12)
[2019-12-21] MEDS: HEPARIN SODIUM,PORCINE 5,000 UNITS/ML VIAL SQ SCH ×2 (09:12→20:12)
[2019-12-21 20:00] VITALS: BP 131/59
[2019-12-21] MEDS: ATORVASTATIN 20 MG TABLET GT SCH (20:11)
[2019-12-21] MEDS: MULTIVIT, IRON, MIN NO. 8, FA TABLET GT SCH (20:12)
[2019-12-21] MEDS: VITAL AF 1.2 1,000 ML LIQUID GT PRN (21:42)
[2019-12-22] MEDS: ALBUTEROL SULFATE 2.5 MG/3 ML NEBU NEB SCH ×4 (01:01→19:52)
[2019-12-22] MEDS: PANTOPRAZOLE ORAL SUSPENSION 40 MG SUSPDR.PKT GT SCH ×2 (05:21→17:38)
[2019-12-22 07:24] LABS: BASOPHILS # (AUTO) 0.1 K/uL (0.0-8.0); BASOPHILS % (AUTO) 1.5 % (0.0-2.0); EOSINOPHILS # (AUTO) 0.5 K/uL (0.0-0.7); EOSINOPHILS % (AUTO) 8.6 % (0.0-7.0); HEMATOCRIT 39.2 % (36.7-47.1); HEMOGLOBIN 13.6 g/dL (12.5-16.3); LYMPHOCYTES # (AUTO) 1.6 K/uL (20.0-40.0); LYMPHOCYTES % (AUTO) 28.6 % (20.5-51.5); MEAN CORPUSCULAR HGB CONC 35 g/dL (32.5-36.3); MEAN CORPUSCULAR VOLUME 95.2 fL (73.0-96.2); MONOCYTES # (AUTO) 0.4 K/uL (2.0-10.0); MONOCYTES % (AUTO) 6.4 % (0.0-11.0); NEUTROPHILS # (AUTO) 3.2 K/uL (1.8-8.9); NEUTROPHILS % (AUTO) 54.9 % (38.5-71.5); PLATELET COUNT (AUTO) 246 K/uL (152-348); RED BLOOD CELL COUNT(AUTO) 4.12 MIL/uL (4.06-5.63); WHITE BLOOD COUNT (AUTO) 5.7 K/uL (3.6-10.2)
[2019-12-22 07:43] VITALS: BP 123/48
[2019-12-22 07:49] LABS: CREATININE 0.7 mg/dL (0.6-1.3); MAGNESIUM 2.1 mg/dL (1.8-2.4); PHOSPHOROUS 3.7 mg/dL (2.5-4.9); POTASSIUM 4.4 mmol/L (3.5-5.1)
[2019-12-22] MEDS: HYDROGEN PEROXIDE 3% 118 ML BOTTLE TP SCH ×2 (08:05→21:14)
[2019-12-22] MEDS: ASPIRIN 81 MG TAB.CHEW GT SCH (08:41)
[2019-12-22] MEDS: ACIDOPHILUS/BULGARICUS CHEW TAB GT SCH ×2 (08:42→20:15)
[2019-12-22] MEDS: LOSARTAN POTASSIUM 50 MG TABLET GT SCH (08:42)
[2019-12-22] MEDS: METOPROLOL TARTRATE 25 MG TABLET GT SCH ×2 (08:44→20:15)
[2019-12-22] MEDS: NUTRISOURCE FIBER 4 GM PACKET GT SCH (08:44)
[2019-12-22] MEDS: HEPARIN SODIUM,PORCINE 5,000 UNITS/ML VIAL SQ SCH ×2 (08:45→20:18)
[2019-12-22] MEDS: COD LIVER OIL/ZINC OXIDE OINT 113 GM TUBE TP SCH ×2 (08:45→20:19)
--- NOTE | 2019-12-22 12:00 | NUR ---
SEEN AND EXAMINED BY DR. GABRIEL Arana AND WITH JEFFREYO.
[2019-12-22] MEDS: VITAL AF 1.2 1,000 ML LIQUID GT PRN (17:38)
[2019-12-22] MEDS: ATORVASTATIN 20 MG TABLET GT SCH (20:15)
[2019-12-22 22:53] VITALS: BP 121/52
[2019-12-23] MEDS: ALBUTEROL SULFATE 2.5 MG/3 ML NEBU NEB SCH ×4 (01:40→20:06)
[2019-12-23] MEDS: PANTOPRAZOLE ORAL SUSPENSION 40 MG SUSPDR.PKT GT SCH ×2 (05:17→17:55)
[2019-12-23] MEDS: HYDROGEN PEROXIDE 3% 118 ML BOTTLE TP SCH ×2 (07:12→20:06)
[2019-12-23 07:39] VITALS: BP 103/60
[2019-12-23] MEDS: ASPIRIN 81 MG TAB.CHEW GT SCH (08:29)
[2019-12-23] MEDS: LOSARTAN POTASSIUM 50 MG TABLET GT SCH (08:29)
[2019-12-23] MEDS: NUTRISOURCE FIBER 4 GM PACKET GT SCH (08:30)
[2019-12-23] MEDS: ACIDOPHILUS/BULGARICUS CHEW TAB GT SCH ×2 (08:30→20:13)
[2019-12-23] MEDS: METOPROLOL TARTRATE 25 MG TABLET GT SCH ×2 (08:30→20:13)
[2019-12-23] MEDS: COD LIVER OIL/ZINC OXIDE OINT 113 GM TUBE TP SCH ×2 (08:31→20:13)
[2019-12-23] MEDS: HEPARIN SODIUM,PORCINE 5,000 UNITS/ML VIAL SQ SCH ×2 (09:01→20:14)
[2019-12-23] MEDS: VITAL AF 1.2 1,000 ML LIQUID GT PRN (15:47)
[2019-12-23] MEDS: MULTIVIT, IRON, MIN NO. 8, FA TABLET GT SCH (20:13)
[2019-12-23] MEDS: ATORVASTATIN 20 MG TABLET GT SCH (20:13)
[2019-12-23 23:28] VITALS: BP 118/64
[2019-12-24] MEDS: ALBUTEROL SULFATE 2.5 MG/3 ML NEBU NEB SCH ×4 (01:27→20:06)
[2019-12-24] MEDS: PANTOPRAZOLE ORAL SUSPENSION 40 MG SUSPDR.PKT GT SCH ×2 (05:04→17:46)
[2019-12-24 07:30] VITALS: BP 109/62
[2019-12-24] MEDS: ASPIRIN 81 MG TAB.CHEW GT SCH (08:53)
[2019-12-24] MEDS: LOSARTAN POTASSIUM 50 MG TABLET GT SCH (08:53)
[2019-12-24] MEDS: COD LIVER OIL/ZINC OXIDE OINT 113 GM TUBE TP SCH ×2 (08:54→20:27)
[2019-12-24] MEDS: NUTRISOURCE FIBER 4 GM PACKET GT SCH (08:54)
[2019-12-24] MEDS: METOPROLOL TARTRATE 25 MG TABLET GT SCH ×2 (08:54→20:27)
[2019-12-24] MEDS: ACIDOPHILUS/BULGARICUS CHEW TAB GT SCH ×2 (08:54→20:26)
[2019-12-24] MEDS: HEPARIN SODIUM,PORCINE 5,000 UNITS/ML VIAL SQ SCH ×2 (08:55→21:00)
[2019-12-24] MEDS: HYDROGEN PEROXIDE 3% 118 ML BOTTLE TP SCH ×2 (09:08→20:06)
[2019-12-24] MEDS: ATORVASTATIN 20 MG TABLET GT SCH (20:26)
[2019-12-24 20:43] VITALS: BP 135/54
[2019-12-25] MEDS: ALBUTEROL SULFATE 2.5 MG/3 ML NEBU NEB SCH ×4 (01:15→19:42)
[2019-12-25] MEDS: PANTOPRAZOLE ORAL SUSPENSION 40 MG SUSPDR.PKT GT SCH ×2 (06:25→17:35)
[2019-12-25 07:27] VITALS: BP 120/51
[2019-12-25] MEDS: METOPROLOL TARTRATE 25 MG TABLET GT SCH ×2 (09:00→20:20)
[2019-12-25] MEDS: ASPIRIN 81 MG TAB.CHEW GT SCH (09:10)
[2019-12-25] MEDS: NUTRISOURCE FIBER 4 GM PACKET GT SCH (09:11)
[2019-12-25] MEDS: COD LIVER OIL/ZINC OXIDE OINT 113 GM TUBE TP SCH ×2 (09:11→20:22)
[2019-12-25] MEDS: LOSARTAN POTASSIUM 50 MG TABLET GT SCH (09:11)
[2019-12-25] MEDS: ACIDOPHILUS/BULGARICUS CHEW TAB GT SCH ×2 (09:11→20:19)
[2019-12-25] MEDS: HEPARIN SODIUM,PORCINE 5,000 UNITS/ML VIAL SQ SCH ×2 (09:12→20:21)
[2019-12-25] MEDS: HYDROGEN PEROXIDE 3% 118 ML BOTTLE TP SCH ×2 (09:14→21:04)
[2019-12-25 20:03] VITALS: BP 124/66
[2019-12-25] MEDS: ATORVASTATIN 20 MG TABLET GT SCH (20:20)
[2019-12-25] MEDS: MULTIVIT, IRON, MIN NO. 8, FA TABLET GT SCH (20:21)
[2019-12-26] MEDS: ALBUTEROL SULFATE 2.5 MG/3 ML NEBU NEB SCH ×4 (01:02→19:23)
[2019-12-26] MEDS: PANTOPRAZOLE ORAL SUSPENSION 40 MG SUSPDR.PKT GT SCH ×3 (05:24→17:27)
[2019-12-26] MEDS: VITAL AF 1.2 1,000 ML LIQUID GT PRN (05:28)
[2019-12-26 07:26] VITALS: BP 150/60
[2019-12-26] MEDS: ASPIRIN 81 MG TAB.CHEW GT SCH (08:09)
[2019-12-26] MEDS: LOSARTAN POTASSIUM 50 MG TABLET GT SCH (08:09)
[2019-12-26] MEDS: ACIDOPHILUS/BULGARICUS CHEW TAB GT SCH ×2 (08:09→20:07)
[2019-12-26] MEDS: COD LIVER OIL/ZINC OXIDE OINT 113 GM TUBE TP SCH ×2 (08:10→20:11)
[2019-12-26] MEDS: NUTRISOURCE FIBER 4 GM PACKET GT SCH (08:10)
[2019-12-26] MEDS: METOPROLOL TARTRATE 25 MG TABLET GT SCH ×2 (08:10→20:10)
[2019-12-26] MEDS: HEPARIN SODIUM,PORCINE 5,000 UNITS/ML VIAL SQ SCH ×2 (08:35→20:11)
[2019-12-26] MEDS: HYDROGEN PEROXIDE 3% 118 ML BOTTLE TP SCH ×2 (09:28→21:54)
[2019-12-26 19:55] VITALS: BP 123/67
[2019-12-26] MEDS: ATORVASTATIN 20 MG TABLET GT SCH (20:07)
[2019-12-27] MEDS: ALBUTEROL SULFATE 2.5 MG/3 ML NEBU NEB SCH ×4 (00:30→20:23)
[2019-12-27] MEDS: PANTOPRAZOLE ORAL SUSPENSION 40 MG SUSPDR.PKT GT SCH ×2 (06:04→17:18)
[2019-12-27] MEDS: VITAL AF 1.2 1,000 ML LIQUID GT PRN (06:05)
[2019-12-27 07:44] VITALS: BP 120/54
[2019-12-27] MEDS: ASPIRIN 81 MG TAB.CHEW GT SCH (08:28)
[2019-12-27] MEDS: LOSARTAN POTASSIUM 50 MG TABLET GT SCH (08:29)
[2019-12-27] MEDS: ACIDOPHILUS/BULGARICUS CHEW TAB GT SCH ×2 (08:29→20:23)
[2019-12-27] MEDS: COD LIVER OIL/ZINC OXIDE OINT 113 GM TUBE TP SCH ×2 (08:33→20:25)
[2019-12-27] MEDS: HEPARIN SODIUM,PORCINE 5,000 UNITS/ML VIAL SQ SCH ×2 (08:33→20:25)
[2019-12-27] MEDS: METOPROLOL TARTRATE 25 MG TABLET GT SCH ×2 (08:33→20:24)
[2019-12-27] MEDS: NUTRISOURCE FIBER 4 GM PACKET GT SCH (08:33)
[2019-12-27] MEDS: HYDROGEN PEROXIDE 3% 118 ML BOTTLE TP SCH ×2 (09:34→21:45)
[2019-12-27 20:00] VITALS: BP 111/57
[2019-12-27] MEDS: ATORVASTATIN 20 MG TABLET GT SCH (20:23)
[2019-12-27] MEDS: MULTIVIT, IRON, MIN NO. 8, FA TABLET GT SCH (20:25)
--- NOTE | 2019-12-27 21:45 | NUR ---
NOTIFIED RESPONSIBLE GREEN PARTY, ROSALINDA CARL, OF COVID-19 POSSIBLE EXPOSURE AND TESTING PLAN. RESPONSIBLE GREEN PARTY VERBALIZED UNDERSTANDING.
[2019-12-28] MEDS: ALBUTEROL SULFATE 2.5 MG/3 ML NEBU NEB SCH ×4 (01:12→19:29)
[2019-12-28] MEDS: VITAL AF 1.2 1,000 ML LIQUID GT PRN (02:00)
--- NOTE | 2019-12-28 02:00 | NUR ---
New order for COVID-[address] [facility] COVID-19 requirement.
[2019-12-28] MEDS: PANTOPRAZOLE ORAL SUSPENSION 40 MG SUSPDR.PKT GT SCH ×2 (05:18→17:32)
[2019-12-28 07:09] LABS: BASOPHILS # (AUTO) 0.1 K/uL (0.0-8.0); BASOPHILS % (AUTO) 1.3 % (0.0-2.0); EOSINOPHILS # (AUTO) 0.5 K/uL (0.0-0.7); EOSINOPHILS % (AUTO) 7.5 % (0.0-7.0); HEMATOCRIT 39.5 % (36.7-47.1); HEMOGLOBIN 13.4 g/dL (12.5-16.3); LYMPHOCYTES % (AUTO) 30.8 % (20.5-51.5); MEAN CORPUSCULAR HEMOGLOBIN 32.4 uug (23.8-33.4); MEAN CORPUSCULAR HGB CONC 34 g/dL (32.5-36.3); MEAN CORPUSCULAR VOLUME 95.7 fL (73.0-96.2); MONOCYTES # (AUTO) 0.7 K/uL (2.0-10.0); MONOCYTES % (AUTO) 9.9 % (0.0-11.0); NEUTROPHILS # (AUTO) 3.4 K/uL (1.8-8.9); NEUTROPHILS % (AUTO) 50.5 % (38.5-71.5); PLATELET COUNT (AUTO) 252 K/uL (152-348); RED BLOOD CELL COUNT(AUTO) 4.13 MIL/uL (4.06-5.63); WHITE BLOOD COUNT (AUTO) 6.7 K/uL (3.6-10.2)
[2019-12-28] MEDS: HYDROGEN PEROXIDE 3% 118 ML BOTTLE TP SCH ×2 (07:09→21:19)
[2019-12-28 07:13] LABS: CREATININE 0.8 mg/dL (0.6-1.3); PHOSPHOROUS 3.9 mg/dL (2.5-4.9); POTASSIUM 4.5 mmol/L (3.5-5.1)
[2019-12-28 08:00] VITALS: BP 115/56
[2019-12-28] MEDS: ASPIRIN 81 MG TAB.CHEW GT SCH (08:25)
[2019-12-28] MEDS: ACIDOPHILUS/BULGARICUS CHEW TAB GT SCH ×2 (08:27→20:43)
[2019-12-28] MEDS: LOSARTAN POTASSIUM 50 MG TABLET GT SCH (08:27)
[2019-12-28] MEDS: METOPROLOL TARTRATE 25 MG TABLET GT SCH ×2 (08:27→20:43)
[2019-12-28] MEDS: NUTRISOURCE FIBER 4 GM PACKET GT SCH (08:28)
[2019-12-28] MEDS: HEPARIN SODIUM,PORCINE 5,000 UNITS/ML VIAL SQ SCH ×2 (08:29→20:39)
[2019-12-28] MEDS: COD LIVER OIL/ZINC OXIDE OINT 113 GM TUBE TP SCH ×2 (08:29→20:43)
[2019-12-28 20:30] VITALS: BP 125/66
[2019-12-28] MEDS: ATORVASTATIN 20 MG TABLET GT SCH (20:43)
[2019-12-29] MEDS: ALBUTEROL SULFATE 2.5 MG/3 ML NEBU NEB SCH ×4 (00:48→19:50)
[2019-12-29] MEDS: VITAL AF 1.2 1,000 ML LIQUID GT PRN ×2 (05:31→21:59)
[2019-12-29] MEDS: PANTOPRAZOLE ORAL SUSPENSION 40 MG SUSPDR.PKT GT SCH ×2 (05:31→17:06)
[2019-12-29 07:46] VITALS: BP 110/62
[2019-12-29] MEDS: HYDROGEN PEROXIDE 3% 118 ML BOTTLE TP SCH ×2 (09:00→21:43)
[2019-12-29] MEDS: METOPROLOL TARTRATE 25 MG TABLET GT SCH ×2 (09:00→21:55)
[2019-12-29] MEDS: LOSARTAN POTASSIUM 50 MG TABLET GT SCH (09:00)
[2019-12-29] MEDS: ASPIRIN 81 MG TAB.CHEW GT SCH (09:13)
[2019-12-29] MEDS: ACIDOPHILUS/BULGARICUS CHEW TAB GT SCH ×2 (09:13→21:54)
[2019-12-29] MEDS: NUTRISOURCE FIBER 4 GM PACKET GT SCH (09:14)
[2019-12-29] MEDS: COD LIVER OIL/ZINC OXIDE OINT 113 GM TUBE TP SCH ×2 (09:14→21:56)
[2019-12-29] MEDS: HEPARIN SODIUM,PORCINE 5,000 UNITS/ML VIAL SQ SCH ×2 (09:42→21:59)
--- NOTE | 2019-12-29 18:58 | NUR ---
Laboratory call with results,Covid 19 negative.
[2019-12-29 20:05] VITALS: BP 131/65
[2019-12-29] MEDS: ATORVASTATIN 20 MG TABLET GT SCH (21:54)
[2019-12-29] MEDS: MULTIVIT, IRON, MIN NO. 8, FA TABLET GT SCH (21:55)
[2019-12-30] MEDS: ALBUTEROL SULFATE 2.5 MG/3 ML NEBU NEB SCH ×4 (01:05→19:21)
[2019-12-30] MEDS: PANTOPRAZOLE ORAL SUSPENSION 40 MG SUSPDR.PKT GT SCH ×2 (05:28→17:04)
[2019-12-30 07:31] VITALS: BP 126/47
[2019-12-30] MEDS: ASPIRIN 81 MG TAB.CHEW GT SCH (08:33)
[2019-12-30] MEDS: NUTRISOURCE FIBER 4 GM PACKET GT SCH (08:34)
[2019-12-30] MEDS: LOSARTAN POTASSIUM 50 MG TABLET GT SCH (08:34)
[2019-12-30] MEDS: METOPROLOL TARTRATE 25 MG TABLET GT SCH ×2 (08:34→20:42)
[2019-12-30] MEDS: ACIDOPHILUS/BULGARICUS CHEW TAB GT SCH ×2 (08:34→20:37)
[2019-12-30] MEDS: HEPARIN SODIUM,PORCINE 5,000 UNITS/ML VIAL SQ SCH ×2 (08:35→20:38)
[2019-12-30] MEDS: COD LIVER OIL/ZINC OXIDE OINT 113 GM TUBE TP SCH ×2 (08:36→20:42)
[2019-12-30] MEDS: HYDROGEN PEROXIDE 3% 118 ML BOTTLE TP SCH ×2 (09:50→19:21)
--- NOTE | 2019-12-30 20:07 | NUR ---
Spoke to Marina Pt's daughter ,aware pt's COVID 19 results are negative.
[2019-12-30 20:30] VITALS: BP 130/52
[2019-12-30] MEDS: ATORVASTATIN 20 MG TABLET GT SCH (20:37)
[2019-12-30] MEDS: VITAL AF 1.2 1,000 ML LIQUID GT PRN (20:47)
[2019-12-31] MEDS: ALBUTEROL SULFATE 2.5 MG/3 ML NEBU NEB SCH ×4 (00:53→19:53)
[2019-12-31] MEDS: PANTOPRAZOLE ORAL SUSPENSION 40 MG SUSPDR.PKT GT SCH ×2 (05:18→17:53)
[2019-12-31 07:40] VITALS: BP 139/57
[2019-12-31] MEDS: ACIDOPHILUS/BULGARICUS CHEW TAB GT SCH ×2 (08:30→20:46)
[2019-12-31] MEDS: LOSARTAN POTASSIUM 50 MG TABLET GT SCH (08:30)
[2019-12-31] MEDS: ASPIRIN 81 MG TAB.CHEW GT SCH (08:30)
[2019-12-31] MEDS: NUTRISOURCE FIBER 4 GM PACKET GT SCH (08:31)
[2019-12-31] MEDS: METOPROLOL TARTRATE 25 MG TABLET GT SCH ×2 (08:31→20:47)
[2019-12-31] MEDS: HEPARIN SODIUM,PORCINE 5,000 UNITS/ML VIAL SQ SCH ×2 (08:33→20:48)
[2019-12-31] MEDS: COD LIVER OIL/ZINC OXIDE OINT 113 GM TUBE TP SCH ×2 (08:33→20:48)
[2019-12-31] MEDS: HYDROGEN PEROXIDE 3% 118 ML BOTTLE TP SCH ×2 (09:32→21:19)
[2019-12-31 20:40] VITALS: BP 138/66
[2019-12-31] MEDS: ATORVASTATIN 20 MG TABLET GT SCH (20:46)
[2019-12-31] MEDS: MULTIVIT, IRON, MIN NO. 8, FA TABLET GT SCH (20:46)
[2020-01-01] MEDS: ALBUTEROL SULFATE 2.5 MG/3 ML NEBU NEB SCH ×4 (01:04→19:02)
[2020-01-01] MEDS: PANTOPRAZOLE ORAL SUSPENSION 40 MG SUSPDR.PKT GT SCH ×2 (05:32→17:15)
[2020-01-01] MEDS: HYDROGEN PEROXIDE 3% 118 ML BOTTLE TP SCH ×2 (07:25→21:03)
[2020-01-01 07:41] VITALS: BP 112/48
[2020-01-01] MEDS: ASPIRIN 81 MG TAB.CHEW GT SCH (08:22)
[2020-01-01] MEDS: HEPARIN SODIUM,PORCINE 5,000 UNITS/ML VIAL SQ SCH ×2 (08:24→20:17)
[2020-01-01] MEDS: NUTRISOURCE FIBER 4 GM PACKET GT SCH (08:28)
[2020-01-01] MEDS: METOPROLOL TARTRATE 25 MG TABLET GT SCH ×2 (08:29→20:18)
[2020-01-01] MEDS: ACIDOPHILUS/BULGARICUS CHEW TAB GT SCH ×2 (08:30→20:09)
[2020-01-01] MEDS: LOSARTAN POTASSIUM 50 MG TABLET GT SCH (08:31)
[2020-01-01] MEDS: COD LIVER OIL/ZINC OXIDE OINT 113 GM TUBE TP SCH ×2 (08:33→20:19)
[2020-01-01] MEDS: VITAL AF 1.2 1,000 ML LIQUID GT PRN (10:48)
--- NOTE | 2020-01-01 17:08 | NUR ---
INTERDISCIPLINARY PLAN OF CARE CONFERENCE was held today. Patient's [id number] Gin participated in the meeting through speaker phone. Dr. Leary and the Interdisciplinary team reviewed the current plan of care in detail. RN reported on patient's current medical condition, stating that there have been no changes in condition at this time. See RN IDT conference notes. See also all other disciplines IDT notes and physician's progress notes for additional details. Gin stated not having any questions/concerns at this time, and being in content with the current plan of care.
[2020-01-01] MEDS: ATORVASTATIN 20 MG TABLET GT SCH (20:09)
[2020-01-01 20:22] VITALS: BP 114/60
[2020-01-02] MEDS: ALBUTEROL SULFATE 2.5 MG/3 ML NEBU NEB SCH ×4 (01:21→19:17)
[2020-01-02] MEDS: PANTOPRAZOLE ORAL SUSPENSION 40 MG SUSPDR.PKT GT SCH ×2 (05:00→17:08)
[2020-01-02] MEDS: VITAL AF 1.2 1,000 ML LIQUID GT PRN (06:47)
[2020-01-02 07:46] VITALS: BP 126/57
[2020-01-02] MEDS: ASPIRIN 81 MG TAB.CHEW GT SCH (08:01)
[2020-01-02] MEDS: ACIDOPHILUS/BULGARICUS CHEW TAB GT SCH ×2 (08:01→20:21)
[2020-01-02] MEDS: LOSARTAN POTASSIUM 50 MG TABLET GT SCH (08:01)
[2020-01-02] MEDS: METOPROLOL TARTRATE 25 MG TABLET GT SCH ×2 (08:02→20:21)
[2020-01-02] MEDS: NUTRISOURCE FIBER 4 GM PACKET GT SCH (08:02)
[2020-01-02] MEDS: HEPARIN SODIUM,PORCINE 5,000 UNITS/ML VIAL SQ SCH ×2 (08:06→20:36)
[2020-01-02] MEDS: COD LIVER OIL/ZINC OXIDE OINT 113 GM TUBE TP SCH ×2 (08:08→20:25)
[2020-01-02] MEDS: HYDROGEN PEROXIDE 3% 118 ML BOTTLE TP SCH ×2 (09:50→19:17)
--- NOTE | 2020-01-02 16:51 | NUR ---
New order for COVID-19 test per [facility] COVID-19 requirement.
--- NOTE | 2020-01-02 17:31 | NUR ---
Seen and examined by Dr Leary no new orders noted.
--- NOTE | 2020-01-02 17:58 | NUR ---
Informed family member Reji, of COVID-19 that there will be a 2nd testing plan with good verbal understanding.
[2020-01-02 20:06] VITALS: BP 129/56
[2020-01-02] MEDS: ATORVASTATIN 20 MG TABLET GT SCH (20:21)
[2020-01-02] MEDS: MULTIVIT, IRON, MIN NO. 8, FA TABLET GT SCH (20:21)
[2020-01-03] MEDS: ALBUTEROL SULFATE 2.5 MG/3 ML NEBU NEB SCH ×4 (00:40→19:35)
[2020-01-03] MEDS: VITAL AF 1.2 1,000 ML LIQUID GT PRN ×2 (01:15→22:59)
[2020-01-03] MEDS: PANTOPRAZOLE ORAL SUSPENSION 40 MG SUSPDR.PKT GT SCH ×2 (05:51→17:19)
[2020-01-03 08:09] VITALS: BP 109/61
[2020-01-03] MEDS: ACIDOPHILUS/BULGARICUS CHEW TAB GT SCH ×2 (08:21→20:22)
[2020-01-03] MEDS: ASPIRIN 81 MG TAB.CHEW GT SCH (08:21)
[2020-01-03] MEDS: METOPROLOL TARTRATE 25 MG TABLET GT SCH ×2 (08:21→20:23)
[2020-01-03] MEDS: LOSARTAN POTASSIUM 50 MG TABLET GT SCH (08:22)
[2020-01-03] MEDS: NUTRISOURCE FIBER 4 GM PACKET GT SCH (08:22)
[2020-01-03] MEDS: COD LIVER OIL/ZINC OXIDE OINT 113 GM TUBE TP SCH ×2 (08:24→20:27)
[2020-01-03] MEDS: HEPARIN SODIUM,PORCINE 5,000 UNITS/ML VIAL SQ SCH ×2 (08:24→20:26)
[2020-01-03] MEDS: HYDROGEN PEROXIDE 3% 118 ML BOTTLE TP SCH ×2 (09:12→21:27)
--- NOTE | 2020-01-03 18:39 | NUR ---
PT'S SON ROSALINDA TONEYGISELL AWARE OF COVID 19 TESTING TOMORROW FOR PT. AND IN AGREEMNT.
[2020-01-03 20:00] VITALS: BP 152/69
[2020-01-03] MEDS: ATORVASTATIN 20 MG TABLET GT SCH (20:23)
[2020-01-04] MEDS: ALBUTEROL SULFATE 2.5 MG/3 ML NEBU NEB SCH ×4 (01:20→19:31)
[2020-01-04] MEDS: PANTOPRAZOLE ORAL SUSPENSION 40 MG SUSPDR.PKT GT SCH ×2 (05:52→17:27)
[2020-01-04 08:08] VITALS: BP 120/59
[2020-01-04] MEDS: METOPROLOL TARTRATE 25 MG TABLET GT SCH ×2 (08:23→20:39)
[2020-01-04] MEDS: ASPIRIN 81 MG TAB.CHEW GT SCH (08:24)
[2020-01-04] MEDS: LOSARTAN POTASSIUM 50 MG TABLET GT SCH (08:25)
[2020-01-04] MEDS: COD LIVER OIL/ZINC OXIDE OINT 113 GM TUBE TP SCH ×2 (08:26→20:40)
[2020-01-04] MEDS: NUTRISOURCE FIBER 4 GM PACKET GT SCH (08:26)
[2020-01-04] MEDS: HEPARIN SODIUM,PORCINE 5,000 UNITS/ML VIAL SQ SCH ×2 (08:26→20:48)
[2020-01-04] MEDS: ACIDOPHILUS/BULGARICUS CHEW TAB GT SCH ×2 (08:26→20:31)
[2020-01-04] MEDS: HYDROGEN PEROXIDE 3% 118 ML BOTTLE TP SCH ×2 (08:39→21:16)
[2020-01-04] MEDS: VITAL AF 1.2 1,000 ML LIQUID GT PRN (17:28)
[2020-01-04 20:00] VITALS: BP 115/53
[2020-01-04] MEDS: ATORVASTATIN 20 MG TABLET GT SCH (20:39)
[2020-01-04] MEDS: MULTIVIT, IRON, MIN NO. 8, FA TABLET GT SCH (20:40)
[2020-01-05] MEDS: ALBUTEROL SULFATE 2.5 MG/3 ML NEBU NEB SCH ×4 (01:46→19:40)
[2020-01-05] MEDS: PANTOPRAZOLE ORAL SUSPENSION 40 MG SUSPDR.PKT GT SCH ×2 (05:27→17:17)
[2020-01-05 07:48] VITALS: BP 122/51
[2020-01-05] MEDS: ASPIRIN 81 MG TAB.CHEW GT SCH (08:01)
[2020-01-05] MEDS: ACIDOPHILUS/BULGARICUS CHEW TAB GT SCH ×2 (08:02→20:13)
[2020-01-05] MEDS: LOSARTAN POTASSIUM 50 MG TABLET GT SCH (08:02)
[2020-01-05] MEDS: METOPROLOL TARTRATE 25 MG TABLET GT SCH ×2 (08:04→20:13)
[2020-01-05] MEDS: NUTRISOURCE FIBER 4 GM PACKET GT SCH (08:04)
[2020-01-05] MEDS: HEPARIN SODIUM,PORCINE 5,000 UNITS/ML VIAL SQ SCH ×2 (08:06→20:11)
[2020-01-05] MEDS: COD LIVER OIL/ZINC OXIDE OINT 113 GM TUBE TP SCH ×2 (08:06→20:13)
[2020-01-05] MEDS: HYDROGEN PEROXIDE 3% 118 ML BOTTLE TP SCH ×2 (08:51→21:15)
[2020-01-05] MEDS: VITAL AF 1.2 1,000 ML LIQUID GT PRN (14:38)
[2020-01-05 20:00] VITALS: BP 126/70
[2020-01-05] MEDS: ATORVASTATIN 20 MG TABLET GT SCH (20:13)
[2020-01-06] MEDS: ALBUTEROL SULFATE 2.5 MG/3 ML NEBU NEB SCH ×4 (01:04→19:45)
[2020-01-06] MEDS: PANTOPRAZOLE ORAL SUSPENSION 40 MG SUSPDR.PKT GT SCH ×2 (05:09→17:11)
[2020-01-06] MEDS: HYDROGEN PEROXIDE 3% 118 ML BOTTLE TP SCH ×2 (07:24→21:18)
[2020-01-06 07:52] VITALS: BP 103/43
[2020-01-06] MEDS: ASPIRIN 81 MG TAB.CHEW GT SCH (08:40)
[2020-01-06] MEDS: NUTRISOURCE FIBER 4 GM PACKET GT SCH (08:40)
[2020-01-06] MEDS: ACIDOPHILUS/BULGARICUS CHEW TAB GT SCH ×2 (08:40→20:25)
[2020-01-06] MEDS: METOPROLOL TARTRATE 25 MG TABLET GT SCH ×2 (08:40→20:26)
[2020-01-06] MEDS: LOSARTAN POTASSIUM 50 MG TABLET GT SCH (08:40)
[2020-01-06] MEDS: COD LIVER OIL/ZINC OXIDE OINT 113 GM TUBE TP SCH ×2 (08:41→20:28)
[2020-01-06] MEDS: HEPARIN SODIUM,PORCINE 5,000 UNITS/ML VIAL SQ SCH ×2 (08:41→20:27)
--- NOTE | 2020-01-06 17:00 | NUR ---
PT'S DTR. LISA CARL WAS NOTIFIED RE: PT. IS NEGATIVE FOR COVID 19 TEST.
--- NOTE | 2020-01-06 18:41 | NUR ---
PER NURSING STAFF NEVER SEEN PT. PULLING OUT TRACH OR ATTEMPTING TO DO IT.
[2020-01-06 20:00] VITALS: BP 130/58
[2020-01-06] MEDS: ATORVASTATIN 20 MG TABLET GT SCH (20:25)
[2020-01-06] MEDS: MULTIVIT, IRON, MIN NO. 8, FA TABLET GT SCH (20:26)
[2020-01-07] MEDS: ALBUTEROL SULFATE 2.5 MG/3 ML NEBU NEB SCH ×4 (01:05→19:40)
[2020-01-07] MEDS: PANTOPRAZOLE ORAL SUSPENSION 40 MG SUSPDR.PKT GT SCH ×2 (06:00→17:19)
[2020-01-07] MEDS: VITAL AF 1.2 1,000 ML LIQUID GT PRN (06:53)
[2020-01-07 07:37] VITALS: BP 129/57
[2020-01-07] MEDS: ASPIRIN 81 MG TAB.CHEW GT SCH (08:33)
[2020-01-07] MEDS: LOSARTAN POTASSIUM 50 MG TABLET GT SCH (08:33)
[2020-01-07] MEDS: NUTRISOURCE FIBER 4 GM PACKET GT SCH (08:34)
[2020-01-07] MEDS: METOPROLOL TARTRATE 25 MG TABLET GT SCH ×2 (08:34→20:43)
[2020-01-07] MEDS: ACIDOPHILUS/BULGARICUS CHEW TAB GT SCH ×2 (08:34→20:42)
[2020-01-07] MEDS: COD LIVER OIL/ZINC OXIDE OINT 113 GM TUBE TP SCH ×2 (08:50→20:47)
[2020-01-07] MEDS: HEPARIN SODIUM,PORCINE 5,000 UNITS/ML VIAL SQ SCH ×2 (08:50→20:46)
[2020-01-07] MEDS: HYDROGEN PEROXIDE 3% 118 ML BOTTLE TP SCH ×2 (09:18→21:37)
--- NOTE | 2020-01-07 12:00 | NUR ---
PT. WAS SEEN NAD EXAMINED BY ENOCH Reyes NAD WITH MIGUELITO.
--- NOTE | 2020-01-07 15:00 | NUR ---
SEEN BY DR. RIOS AND WITH NEW ORDERS CARRIED OUT.
--- NOTE | 2020-01-07 16:00 | NUR ---
SEEN BY DR. FLORES AND WITH NNO.
[2020-01-07 17:08] LABS: BASOPHILS # (AUTO) 0.1 K/uL (0.0-8.0); BASOPHILS % (AUTO) 1.2 % (0.0-2.0); EOSINOPHILS # (AUTO) 0.4 K/uL (0.0-0.7); EOSINOPHILS % (AUTO) 5.5 % (0.0-7.0); HEMATOCRIT 38.8 % (36.7-47.1); HEMOGLOBIN 13.1 g/dL (12.5-16.3); LYMPHOCYTES # (AUTO) 1.6 K/uL (20.0-40.0); LYMPHOCYTES % (AUTO) 23.1 % (20.5-51.5); MEAN CORPUSCULAR HEMOGLOBIN 32.4 uug (23.8-33.4); MEAN CORPUSCULAR HGB CONC 34 g/dL (32.5-36.3); MEAN CORPUSCULAR VOLUME 95.6 fL (73.0-96.2); MONOCYTES # (AUTO) 0.4 K/uL (2.0-10.0); NEUTROPHILS # (AUTO) 4.4 K/uL (1.8-8.9); NEUTROPHILS % (AUTO) 64.2 % (38.5-71.5); PLATELET COUNT (AUTO) 247 K/uL (152-348); RED BLOOD CELL COUNT(AUTO) 4.06 MIL/uL (4.06-5.63); WHITE BLOOD COUNT (AUTO) 6.8 K/uL (3.6-10.2)
[2020-01-07 17:25] LABS: CREATININE 0.7 mg/dL (0.6-1.3); MAGNESIUM 2.1 mg/dL (1.8-2.4); PHOSPHOROUS 3.2 mg/dL (2.5-4.9); POTASSIUM 4.2 mmol/L (3.5-5.1)
[2020-01-07] MEDS: ATORVASTATIN 20 MG TABLET GT SCH (20:42)
[2020-01-07 20:55] VITALS: BP 121/51
[2020-01-08] MEDS: ALBUTEROL SULFATE 2.5 MG/3 ML NEBU NEB SCH ×4 (01:05→19:30)
[2020-01-08] MEDS: VITAL AF 1.2 1,000 ML LIQUID GT PRN ×2 (01:57→23:38)
[2020-01-08] MEDS: PANTOPRAZOLE ORAL SUSPENSION 40 MG SUSPDR.PKT GT SCH ×2 (05:00→17:32)
[2020-01-08 07:23] VITALS: BP 114/54
[2020-01-08] MEDS: ASPIRIN 81 MG TAB.CHEW GT SCH (08:48)
[2020-01-08] MEDS: ACIDOPHILUS/BULGARICUS CHEW TAB GT SCH ×2 (08:48→20:06)
[2020-01-08] MEDS: NUTRISOURCE FIBER 4 GM PACKET GT SCH (08:49)
[2020-01-08] MEDS: HEPARIN SODIUM,PORCINE 5,000 UNITS/ML VIAL SQ SCH ×2 (08:52→20:04)
[2020-01-08] MEDS: METOPROLOL TARTRATE 25 MG TABLET GT SCH ×2 (08:56→20:10)
[2020-01-08] MEDS: LOSARTAN POTASSIUM 50 MG TABLET GT SCH (08:57)
[2020-01-08] MEDS: HYDROGEN PEROXIDE 3% 118 ML BOTTLE TP SCH ×3 (08:58→21:19)
[2020-01-08] MEDS: COD LIVER OIL/ZINC OXIDE OINT 113 GM TUBE TP SCH ×2 (08:58→20:10)
[2020-01-08] MEDS: ATORVASTATIN 20 MG TABLET GT SCH (20:09)
[2020-01-08] MEDS: MULTIVIT, IRON, MIN NO. 8, FA TABLET GT SCH (20:10)
[2020-01-08 20:35] VITALS: BP 129/52
[2020-01-09] MEDS: ALBUTEROL SULFATE 2.5 MG/3 ML NEBU NEB SCH ×4 (01:15→19:37)
[2020-01-09] MEDS: PANTOPRAZOLE ORAL SUSPENSION 40 MG SUSPDR.PKT GT SCH ×2 (05:18→18:18)
[2020-01-09 07:27] VITALS: BP 163/55
[2020-01-09] MEDS: HYDROGEN PEROXIDE 3% 118 ML BOTTLE TP SCH ×2 (08:25→21:18)
[2020-01-09] MEDS: ACIDOPHILUS/BULGARICUS CHEW TAB GT SCH ×2 (08:50→21:05)
[2020-01-09] MEDS: ASPIRIN 81 MG TAB.CHEW GT SCH (08:50)
[2020-01-09] MEDS: COD LIVER OIL/ZINC OXIDE OINT 113 GM TUBE TP SCH ×2 (08:50→21:05)
[2020-01-09] MEDS: NUTRISOURCE FIBER 4 GM PACKET GT SCH (08:50)
[2020-01-09] MEDS: HEPARIN SODIUM,PORCINE 5,000 UNITS/ML VIAL SQ SCH (08:51)
[2020-01-09] MEDS: METOPROLOL TARTRATE 25 MG TABLET GT SCH ×2 (09:00→21:00)
[2020-01-09] MEDS: LOSARTAN POTASSIUM 50 MG TABLET GT SCH (09:00)
[2020-01-09 20:46] VITALS: BP 121/65
[2020-01-09] MEDS: ATORVASTATIN 20 MG TABLET GT SCH (21:05)
[2020-01-10] MEDS: ALBUTEROL SULFATE 2.5 MG/3 ML NEBU NEB SCH ×4 (00:54→19:58)
[2020-01-10] MEDS: VITAL AF 1.2 1,000 ML LIQUID GT PRN ×2 (01:59→17:57)
[2020-01-10] MEDS: PANTOPRAZOLE ORAL SUSPENSION 40 MG SUSPDR.PKT GT SCH ×2 (05:37→17:24)
[2020-01-10 07:38] VITALS: BP 119/57
[2020-01-10] MEDS: LOSARTAN POTASSIUM 50 MG TABLET GT SCH (08:29)
[2020-01-10] MEDS: ASPIRIN 81 MG TAB.CHEW GT SCH (08:29)
[2020-01-10] MEDS: ACIDOPHILUS/BULGARICUS CHEW TAB GT SCH ×2 (08:30→20:32)
[2020-01-10] MEDS: METOPROLOL TARTRATE 25 MG TABLET GT SCH ×2 (08:30→20:34)
[2020-01-10] MEDS: COD LIVER OIL/ZINC OXIDE OINT 113 GM TUBE TP SCH ×2 (08:30→20:34)
[2020-01-10] MEDS: NUTRISOURCE FIBER 4 GM PACKET GT SCH (08:30)
[2020-01-10] MEDS: HYDROGEN PEROXIDE 3% 118 ML BOTTLE TP SCH ×2 (09:00→21:33)
[2020-01-10] MEDS: HEPARIN SODIUM,PORCINE 5,000 UNITS/ML VIAL SQ SCH ×2 (11:20→20:30)
[2020-01-10 20:16] VITALS: BP 124/52
[2020-01-10] MEDS: ATORVASTATIN 20 MG TABLET GT SCH (20:33)
[2020-01-10] MEDS: MULTIVIT, IRON, MIN NO. 8, FA TABLET GT SCH (20:34)
[2020-01-11] MEDS: ALBUTEROL SULFATE 2.5 MG/3 ML NEBU NEB SCH ×4 (01:00→19:00)
[2020-01-11] MEDS: PANTOPRAZOLE ORAL SUSPENSION 40 MG SUSPDR.PKT GT SCH ×2 (05:25→17:40)
[2020-01-11 07:43] VITALS: BP 114/45
[2020-01-11] MEDS: ACIDOPHILUS/BULGARICUS CHEW TAB GT SCH ×2 (08:28→20:33)
[2020-01-11] MEDS: ASPIRIN 81 MG TAB.CHEW GT SCH (08:28)
[2020-01-11] MEDS: LOSARTAN POTASSIUM 50 MG TABLET GT SCH (08:28)
[2020-01-11] MEDS: METOPROLOL TARTRATE 25 MG TABLET GT SCH ×2 (08:28→20:34)
[2020-01-11] MEDS: NUTRISOURCE FIBER 4 GM PACKET GT SCH (08:29)
[2020-01-11] MEDS: COD LIVER OIL/ZINC OXIDE OINT 113 GM TUBE TP SCH ×2 (08:29→20:34)
[2020-01-11] MEDS: HEPARIN SODIUM,PORCINE 5,000 UNITS/ML VIAL SQ SCH ×2 (08:30→20:43)
[2020-01-11] MEDS: HYDROGEN PEROXIDE 3% 118 ML BOTTLE TP SCH ×2 (09:28→21:22)
[2020-01-11 20:22] VITALS: BP 130/48
[2020-01-11] MEDS: ATORVASTATIN 20 MG TABLET GT SCH (20:33)
[2020-01-12] MEDS: ALBUTEROL SULFATE 2.5 MG/3 ML NEBU NEB SCH ×4 (01:01→19:55)
[2020-01-12] MEDS: PANTOPRAZOLE ORAL SUSPENSION 40 MG SUSPDR.PKT GT SCH ×2 (05:42→17:45)
[2020-01-12 07:40] VITALS: BP 110/45
[2020-01-12] MEDS: LOSARTAN POTASSIUM 50 MG TABLET GT SCH (08:37)
[2020-01-12] MEDS: ACIDOPHILUS/BULGARICUS CHEW TAB GT SCH ×2 (08:37→20:56)
[2020-01-12] MEDS: ASPIRIN 81 MG TAB.CHEW GT SCH (08:37)
[2020-01-12] MEDS: COD LIVER OIL/ZINC OXIDE OINT 113 GM TUBE TP SCH ×2 (08:38→21:00)
[2020-01-12] MEDS: NUTRISOURCE FIBER 4 GM PACKET GT SCH (08:38)
[2020-01-12] MEDS: HEPARIN SODIUM,PORCINE 5,000 UNITS/ML VIAL SQ SCH ×2 (08:41→20:57)
[2020-01-12] MEDS: METOPROLOL TARTRATE 25 MG TABLET GT SCH ×2 (09:00→20:56)
[2020-01-12] MEDS: HYDROGEN PEROXIDE 3% 118 ML BOTTLE TP SCH ×2 (10:00→21:26)
[2020-01-12 20:26] VITALS: BP 144/60
[2020-01-12] MEDS: ATORVASTATIN 20 MG TABLET GT SCH (20:56)
[2020-01-12] MEDS: MULTIVIT, IRON, MIN NO. 8, FA TABLET GT SCH (20:56)
[2020-01-13] MEDS: ALBUTEROL SULFATE 2.5 MG/3 ML NEBU NEB SCH ×4 (02:11→19:52)
[2020-01-13] MEDS: PANTOPRAZOLE ORAL SUSPENSION 40 MG SUSPDR.PKT GT SCH ×2 (05:10→18:08)
[2020-01-13] MEDS: HYDROGEN PEROXIDE 3% 118 ML BOTTLE TP SCH ×2 (07:15→21:23)
[2020-01-13 07:44] VITALS: BP 112/45
[2020-01-13] MEDS: ASPIRIN 81 MG TAB.CHEW GT SCH (08:43)
[2020-01-13] MEDS: LOSARTAN POTASSIUM 50 MG TABLET GT SCH (08:43)
[2020-01-13] MEDS: METOPROLOL TARTRATE 25 MG TABLET GT SCH ×2 (08:43→21:00)
[2020-01-13] MEDS: ACIDOPHILUS/BULGARICUS CHEW TAB GT SCH ×2 (08:43→21:19)
[2020-01-13] MEDS: NUTRISOURCE FIBER 4 GM PACKET GT SCH (08:44)
[2020-01-13] MEDS: COD LIVER OIL/ZINC OXIDE OINT 113 GM TUBE TP SCH ×2 (08:44→21:21)
[2020-01-13] MEDS: HEPARIN SODIUM,PORCINE 5,000 UNITS/ML VIAL SQ SCH ×2 (08:45→21:00)
[2020-01-13 20:13] VITALS: BP 140/62
[2020-01-13] MEDS: ATORVASTATIN 20 MG TABLET GT SCH (21:19)
[2020-01-14] MEDS: ALBUTEROL SULFATE 2.5 MG/3 ML NEBU NEB SCH ×4 (02:09→19:50)
[2020-01-14] MEDS: PANTOPRAZOLE ORAL SUSPENSION 40 MG SUSPDR.PKT GT SCH ×2 (05:39→18:05)
[2020-01-14 07:28] VITALS: BP 107/56
[2020-01-14] MEDS: HYDROGEN PEROXIDE 3% 118 ML BOTTLE TP SCH ×2 (08:21→21:54)
[2020-01-14] MEDS: LOSARTAN POTASSIUM 50 MG TABLET GT SCH (08:41)
[2020-01-14] MEDS: ASPIRIN 81 MG TAB.CHEW GT SCH (08:41)
[2020-01-14] MEDS: ACIDOPHILUS/BULGARICUS CHEW TAB GT SCH ×2 (08:42→20:23)
[2020-01-14] MEDS: METOPROLOL TARTRATE 25 MG TABLET GT SCH ×2 (08:43→20:23)
[2020-01-14] MEDS: COD LIVER OIL/ZINC OXIDE OINT 113 GM TUBE TP SCH ×2 (08:44→20:24)
[2020-01-14] MEDS: NUTRISOURCE FIBER 4 GM PACKET GT SCH (08:44)
[2020-01-14] MEDS: HEPARIN SODIUM,PORCINE 5,000 UNITS/ML VIAL SQ SCH ×2 (08:45→21:10)
[2020-01-14 20:06] VITALS: BP 117/63
[2020-01-14] MEDS: ATORVASTATIN 20 MG TABLET GT SCH (20:23)
[2020-01-14] MEDS: MULTIVIT, IRON, MIN NO. 8, FA TABLET GT SCH (20:23)
[2020-01-15] MEDS: ALBUTEROL SULFATE 2.5 MG/3 ML NEBU NEB SCH ×4 (01:00→19:17)
[2020-01-15] MEDS: VITAL AF 1.2 1,000 ML LIQUID GT PRN (05:18)
[2020-01-15] MEDS: PANTOPRAZOLE ORAL SUSPENSION 40 MG SUSPDR.PKT GT SCH ×2 (05:18→17:36)
[2020-01-15 07:41] VITALS: BP 165/68
[2020-01-15] MEDS: LOSARTAN POTASSIUM 50 MG TABLET GT SCH (08:27)
[2020-01-15] MEDS: ACIDOPHILUS/BULGARICUS CHEW TAB GT SCH ×2 (08:27→20:08)
[2020-01-15] MEDS: ASPIRIN 81 MG TAB.CHEW GT SCH (08:27)
[2020-01-15] MEDS: METOPROLOL TARTRATE 25 MG TABLET GT SCH ×2 (08:27→20:09)
[2020-01-15] MEDS: NUTRISOURCE FIBER 4 GM PACKET GT SCH (08:28)
[2020-01-15] MEDS: COD LIVER OIL/ZINC OXIDE OINT 113 GM TUBE TP SCH ×2 (08:28→20:15)
[2020-01-15] MEDS: HEPARIN SODIUM,PORCINE 5,000 UNITS/ML VIAL SQ SCH ×2 (08:33→20:14)
[2020-01-15] MEDS: HYDROGEN PEROXIDE 3% 118 ML BOTTLE TP SCH ×2 (09:13→19:17)
[2020-01-15 20:05] VITALS: BP 122/65
[2020-01-15] MEDS: ATORVASTATIN 20 MG TABLET GT SCH (20:08)
[2020-01-16] MEDS: ALBUTEROL SULFATE 2.5 MG/3 ML NEBU NEB SCH ×4 (00:28→19:49)
[2020-01-16] MEDS: VITAL AF 1.2 1,000 ML LIQUID GT PRN ×2 (00:30→23:00)
[2020-01-16] MEDS: PANTOPRAZOLE ORAL SUSPENSION 40 MG SUSPDR.PKT GT SCH ×2 (05:20→18:00)
[2020-01-16 07:35] VITALS: BP 120/64
[2020-01-16] MEDS: HYDROGEN PEROXIDE 3% 118 ML BOTTLE TP SCH ×2 (07:50→21:30)
[2020-01-16] MEDS: ASPIRIN 81 MG TAB.CHEW GT SCH (09:00)
[2020-01-16] MEDS: NUTRISOURCE FIBER 4 GM PACKET GT SCH (09:01)
[2020-01-16] MEDS: ACIDOPHILUS/BULGARICUS CHEW TAB GT SCH ×2 (09:01→20:10)
[2020-01-16] MEDS: METOPROLOL TARTRATE 25 MG TABLET GT SCH ×2 (09:01→20:13)
[2020-01-16] MEDS: LOSARTAN POTASSIUM 50 MG TABLET GT SCH (09:01)
[2020-01-16] MEDS: COD LIVER OIL/ZINC OXIDE OINT 113 GM TUBE TP SCH ×2 (09:02→20:15)
[2020-01-16] MEDS: HEPARIN SODIUM,PORCINE 5,000 UNITS/ML VIAL SQ SCH ×2 (09:02→20:15)
[2020-01-16 20:00] VITALS: BP 126/49
[2020-01-16] MEDS: ATORVASTATIN 20 MG TABLET GT SCH (20:10)
[2020-01-16] MEDS: MULTIVIT, IRON, MIN NO. 8, FA TABLET GT SCH (20:14)
[2020-01-17] MEDS: ALBUTEROL SULFATE 2.5 MG/3 ML NEBU NEB SCH ×4 (02:08→19:47)
[2020-01-17] MEDS: PANTOPRAZOLE ORAL SUSPENSION 40 MG SUSPDR.PKT GT SCH ×2 (06:13→17:57)
[2020-01-17 08:00] VITALS: BP 118/51
[2020-01-17] MEDS: LOSARTAN POTASSIUM 50 MG TABLET GT SCH (09:00)
[2020-01-17] MEDS: COD LIVER OIL/ZINC OXIDE OINT 113 GM TUBE TP SCH ×2 (09:00→21:21)
[2020-01-17] MEDS: METOPROLOL TARTRATE 25 MG TABLET GT SCH ×2 (09:00→21:21)
[2020-01-17] MEDS: ASPIRIN 81 MG TAB.CHEW GT SCH (09:00)
[2020-01-17] MEDS: NUTRISOURCE FIBER 4 GM PACKET GT SCH (09:00)
[2020-01-17] MEDS: HEPARIN SODIUM,PORCINE 5,000 UNITS/ML VIAL SQ SCH (09:00)
[2020-01-17] MEDS: ACIDOPHILUS/BULGARICUS CHEW TAB GT SCH ×2 (09:00→21:20)
[2020-01-17] MEDS: HYDROGEN PEROXIDE 3% 118 ML BOTTLE TP SCH ×2 (09:37→21:41)
--- NOTE | 2020-01-17 17:00 | NUR ---
SEEN BY DR. GUTIERREZ AND DR. RIOS AND WITH NNO.
[2020-01-17] MEDS: VITAL AF 1.2 1,000 ML LIQUID GT PRN (17:57)
[2020-01-17] MEDS: ATORVASTATIN 20 MG TABLET GT SCH (21:20)
[2020-01-17 22:21] VITALS: BP 127/74
[2020-01-18] MEDS: ALBUTEROL SULFATE 2.5 MG/3 ML NEBU NEB SCH ×4 (02:00→20:07)
[2020-01-18] MEDS: PANTOPRAZOLE ORAL SUSPENSION 40 MG SUSPDR.PKT GT SCH ×2 (06:18→17:22)
[2020-01-18 06:23] LABS: BASOPHILS % (AUTO) 0.1 % (0.0-2.0); EOSINOPHILS # (AUTO) 0.6 K/uL (0.0-0.7); EOSINOPHILS % (AUTO) 11.1 % (0.0-7.0); HEMATOCRIT 37.4 % (36.7-47.1); HEMOGLOBIN 12.9 g/dL (12.5-16.3); LYMPHOCYTES # (AUTO) 1.4 K/uL (20.0-40.0); LYMPHOCYTES % (AUTO) 27.7 % (20.5-51.5); MEAN CORPUSCULAR HGB CONC 35 g/dL (32.5-36.3); MEAN CORPUSCULAR VOLUME 95.6 fL (73.0-96.2); MONOCYTES # (AUTO) 0.4 K/uL (2.0-10.0); MONOCYTES % (AUTO) 7.9 % (0.0-11.0); NEUTROPHILS # (AUTO) 2.7 K/uL (1.8-8.9); NEUTROPHILS % (AUTO) 53.2 % (38.5-71.5); PLATELET COUNT (AUTO) 254 K/uL (152-348); RED BLOOD CELL COUNT(AUTO) 3.91 MIL/uL (4.06-5.63); WHITE BLOOD COUNT (AUTO) 5.2 K/uL (3.6-10.2)
[2020-01-18 06:45] LABS: CREATININE 0.8 mg/dL (0.6-1.3); MAGNESIUM 1.9 mg/dL (1.8-2.4); PHOSPHOROUS 3.8 mg/dL (2.5-4.9); POTASSIUM 4.2 mmol/L (3.5-5.1)
[2020-01-18 07:45] VITALS: BP 121/59
[2020-01-18] MEDS: ASPIRIN 81 MG TAB.CHEW GT SCH (08:53)
[2020-01-18] MEDS: ACIDOPHILUS/BULGARICUS CHEW TAB GT SCH ×2 (08:54→20:53)
[2020-01-18] MEDS: NUTRISOURCE FIBER 4 GM PACKET GT SCH (08:54)
[2020-01-18] MEDS: LOSARTAN POTASSIUM 50 MG TABLET GT SCH (08:54)
[2020-01-18] MEDS: METOPROLOL TARTRATE 25 MG TABLET GT SCH ×2 (08:54→20:53)
[2020-01-18] MEDS: COD LIVER OIL/ZINC OXIDE OINT 113 GM TUBE TP SCH ×2 (08:54→20:54)
[2020-01-18] MEDS: HYDROGEN PEROXIDE 3% 118 ML BOTTLE TP SCH ×2 (09:05→20:07)
[2020-01-18 20:00] VITALS: BP 107/46
[2020-01-18] MEDS: ATORVASTATIN 20 MG TABLET GT SCH (20:53)
[2020-01-18] MEDS: MULTIVIT, IRON, MIN NO. 8, FA TABLET GT SCH (20:54)
--- NOTE | 2020-01-18 21:46 | NUR ---
HEPARIN SQ NOT GIVEN DUE TO DRUG NOT AVAILABLE. WILL FAX ORDER TO [facility]
[2020-01-19] MEDS: ALBUTEROL SULFATE 2.5 MG/3 ML NEBU NEB SCH ×4 (01:59→19:46)
[2020-01-19] MEDS: PANTOPRAZOLE ORAL SUSPENSION 40 MG SUSPDR.PKT GT SCH ×2 (05:20→17:01)
[2020-01-19 07:42] VITALS: BP 110/64
[2020-01-19] MEDS: HYDROGEN PEROXIDE 3% 118 ML BOTTLE TP SCH ×2 (07:55→20:49)
[2020-01-19] MEDS: METOPROLOL TARTRATE 25 MG TABLET GT SCH ×2 (08:17→20:48)
[2020-01-19] MEDS: NUTRISOURCE FIBER 4 GM PACKET GT SCH (08:17)
[2020-01-19] MEDS: ACIDOPHILUS/BULGARICUS CHEW TAB GT SCH ×2 (08:17→20:48)
[2020-01-19] MEDS: LOSARTAN POTASSIUM 50 MG TABLET GT SCH (08:17)
[2020-01-19] MEDS: ASPIRIN 81 MG TAB.CHEW GT SCH (08:17)
[2020-01-19] MEDS: COD LIVER OIL/ZINC OXIDE OINT 113 GM TUBE TP SCH ×2 (08:17→20:49)
[2020-01-19] MEDS: HEPARIN SODIUM,PORCINE 5,000 UNITS/ML VIAL SQ SCH ×2 (09:09→20:57)
[2020-01-19] MEDS: VITAL AF 1.2 1,000 ML LIQUID GT PRN (12:36)
[2020-01-19 20:13] VITALS: BP 127/68
[2020-01-19] MEDS: ATORVASTATIN 20 MG TABLET GT SCH (20:48)
[2020-01-20] MEDS: ALBUTEROL SULFATE 2.5 MG/3 ML NEBU NEB SCH ×4 (00:58→19:26)
[2020-01-20] MEDS: PANTOPRAZOLE ORAL SUSPENSION 40 MG SUSPDR.PKT GT SCH ×2 (05:08→17:01)
[2020-01-20 07:53] VITALS: BP 116/51
[2020-01-20] MEDS: HYDROGEN PEROXIDE 3% 118 ML BOTTLE TP SCH ×2 (08:05→19:26)
[2020-01-20] MEDS: ASPIRIN 81 MG TAB.CHEW GT SCH (08:33)
[2020-01-20] MEDS: LOSARTAN POTASSIUM 50 MG TABLET GT SCH (08:33)
[2020-01-20] MEDS: ACIDOPHILUS/BULGARICUS CHEW TAB GT SCH ×2 (08:33→21:58)
[2020-01-20] MEDS: METOPROLOL TARTRATE 25 MG TABLET GT SCH ×2 (08:34→21:00)
[2020-01-20] MEDS: NUTRISOURCE FIBER 4 GM PACKET GT SCH (08:34)
[2020-01-20] MEDS: HEPARIN SODIUM,PORCINE 5,000 UNITS/ML VIAL SQ SCH ×2 (08:35→20:37)
[2020-01-20] MEDS: COD LIVER OIL/ZINC OXIDE OINT 113 GM TUBE TP SCH ×2 (08:35→21:59)
--- NOTE | 2020-01-20 18:00 | NUR ---
PT'S SON AWARE OF COVID 19 TESTING AND IN AGREEMENT.
[2020-01-20 20:12] VITALS: BP 115/58
[2020-01-20] MEDS: ATORVASTATIN 20 MG TABLET GT SCH (21:58)
[2020-01-20] MEDS: MULTIVIT, IRON, MIN NO. 8, FA TABLET GT SCH (21:59)
[2020-01-21] MEDS: ALBUTEROL SULFATE 2.5 MG/3 ML NEBU NEB SCH ×4 (01:55→20:25)
[2020-01-21] MEDS: PANTOPRAZOLE ORAL SUSPENSION 40 MG SUSPDR.PKT GT SCH ×2 (05:22→17:26)
[2020-01-21] MEDS: VITAL AF 1.2 1,000 ML LIQUID GT PRN ×2 (05:58→23:16)
[2020-01-21 08:00] VITALS: BP 129/75
[2020-01-21] MEDS: ASPIRIN 81 MG TAB.CHEW GT SCH (08:26)
[2020-01-21] MEDS: LOSARTAN POTASSIUM 50 MG TABLET GT SCH (08:28)
[2020-01-21] MEDS: ACIDOPHILUS/BULGARICUS CHEW TAB GT SCH ×2 (08:28→21:28)
[2020-01-21] MEDS: HEPARIN SODIUM,PORCINE 5,000 UNITS/ML VIAL SQ SCH ×2 (08:29→21:00)
[2020-01-21] MEDS: COD LIVER OIL/ZINC OXIDE OINT 113 GM TUBE TP SCH ×2 (08:29→21:29)
[2020-01-21] MEDS: NUTRISOURCE FIBER 4 GM PACKET GT SCH (08:29)
[2020-01-21] MEDS: METOPROLOL TARTRATE 25 MG TABLET GT SCH ×2 (08:29→21:00)
[2020-01-21] MEDS: HYDROGEN PEROXIDE 3% 118 ML BOTTLE TP SCH ×2 (09:19→21:40)
--- NOTE | 2020-01-21 16:17 | NUR ---
PT. WAS SEEN AND EXAMINED BY DR. FLORES AND WITH NEW ORDER CARRIED OUT,PT'S. SON AND DTR. AWARE AND IN AGREEMENT.
[2020-01-21 20:14] VITALS: BP 101/47
[2020-01-21] MEDS: ATORVASTATIN 20 MG TABLET GT SCH (21:28)
[2020-01-22] MEDS: ALBUTEROL SULFATE 2.5 MG/3 ML NEBU NEB SCH ×4 (01:54→19:54)
[2020-01-22] MEDS: PANTOPRAZOLE ORAL SUSPENSION 40 MG SUSPDR.PKT GT SCH ×2 (05:10→18:00)
[2020-01-22 08:00] VITALS: BP 102/42
[2020-01-22] MEDS: HYDROGEN PEROXIDE 3% 118 ML BOTTLE TP SCH ×2 (08:05→21:44)
[2020-01-22] MEDS: ASPIRIN 81 MG TAB.CHEW GT SCH (08:54)
[2020-01-22] MEDS: LOSARTAN POTASSIUM 50 MG TABLET GT SCH (08:55)
[2020-01-22] MEDS: ACIDOPHILUS/BULGARICUS CHEW TAB GT SCH ×2 (08:57→21:05)
[2020-01-22] MEDS: NUTRISOURCE FIBER 4 GM PACKET GT SCH (08:58)
[2020-01-22] MEDS: METOPROLOL TARTRATE 25 MG TABLET GT SCH ×2 (08:58→21:00)
[2020-01-22] MEDS: COD LIVER OIL/ZINC OXIDE OINT 113 GM TUBE TP SCH ×2 (08:59→21:06)
[2020-01-22] MEDS: HEPARIN SODIUM,PORCINE 5,000 UNITS/ML VIAL SQ SCH ×2 (09:01→21:07)
--- NOTE | 2020-01-22 11:00 | NUR ---
Ct scan of head with out contrast done.
--- NOTE | 2020-01-22 18:13 | NUR ---
Marina Wang's daughter notified regarding Covid 19 results negative.
[2020-01-22 20:00] VITALS: BP 111/65
[2020-01-22] MEDS: ATORVASTATIN 20 MG TABLET GT SCH (21:05)
[2020-01-22] MEDS: MULTIVIT, IRON, MIN NO. 8, FA TABLET GT SCH (21:06)
[2020-01-22] MEDS: VITAL AF 1.2 1,000 ML LIQUID GT PRN (22:30)
[2020-01-23] MEDS: ALBUTEROL SULFATE 2.5 MG/3 ML NEBU NEB SCH ×4 (01:05→20:04)
[2020-01-23] MEDS: PANTOPRAZOLE ORAL SUSPENSION 40 MG SUSPDR.PKT GT SCH ×2 (05:25→18:32)
[2020-01-23 08:00] VITALS: BP 115/43
[2020-01-23] MEDS: HYDROGEN PEROXIDE 3% 118 ML BOTTLE TP SCH ×2 (08:08→20:04)
[2020-01-23] MEDS: ASPIRIN 81 MG TAB.CHEW GT SCH (08:51)
[2020-01-23] MEDS: LOSARTAN POTASSIUM 50 MG TABLET GT SCH (08:52)
[2020-01-23] MEDS: ACIDOPHILUS/BULGARICUS CHEW TAB GT SCH ×2 (08:52→21:49)
[2020-01-23] MEDS: METOPROLOL TARTRATE 25 MG TABLET GT SCH ×2 (08:53→21:00)
[2020-01-23] MEDS: NUTRISOURCE FIBER 4 GM PACKET GT SCH (08:54)
[2020-01-23] MEDS: HEPARIN SODIUM,PORCINE 5,000 UNITS/ML VIAL SQ SCH ×2 (08:56→21:52)
[2020-01-23] MEDS: COD LIVER OIL/ZINC OXIDE OINT 113 GM TUBE TP SCH ×2 (08:59→21:52)
[2020-01-23] MEDS: VITAL AF 1.2 1,000 ML LIQUID GT PRN (18:44)
[2020-01-23 20:00] VITALS: BP 129/66
[2020-01-23] MEDS: ATORVASTATIN 20 MG TABLET GT SCH (21:51)
[2020-01-24] MEDS: ALBUTEROL SULFATE 2.5 MG/3 ML NEBU NEB SCH ×4 (01:07→19:50)
[2020-01-24] MEDS: PANTOPRAZOLE ORAL SUSPENSION 40 MG SUSPDR.PKT GT SCH ×2 (05:34→17:14)
[2020-01-24] MEDS: HYDROGEN PEROXIDE 3% 118 ML BOTTLE TP SCH ×2 (07:19→21:36)
[2020-01-24 07:57] VITALS: BP 121/58
[2020-01-24] MEDS: LOSARTAN POTASSIUM 50 MG TABLET GT SCH (08:40)
[2020-01-24] MEDS: ACIDOPHILUS/BULGARICUS CHEW TAB GT SCH ×2 (08:40→21:20)
[2020-01-24] MEDS: METOPROLOL TARTRATE 25 MG TABLET GT SCH ×2 (08:41→21:00)
[2020-01-24] MEDS: NUTRISOURCE FIBER 4 GM PACKET GT SCH (08:41)
[2020-01-24] MEDS: COD LIVER OIL/ZINC OXIDE OINT 113 GM TUBE TP SCH ×2 (08:42→21:22)
[2020-01-24] MEDS: HEPARIN SODIUM,PORCINE 5,000 UNITS/ML VIAL SQ SCH ×2 (08:42→21:59)
[2020-01-24] MEDS: ASPIRIN 81 MG TAB.CHEW GT SCH (08:47)
[2020-01-24 20:00] VITALS: BP 119/65
[2020-01-24] MEDS: ATORVASTATIN 20 MG TABLET GT SCH (21:20)
[2020-01-24] MEDS: MULTIVIT, IRON, MIN NO. 8, FA TABLET GT SCH (21:21)
[2020-01-25] MEDS: ACETAMINOPHEN 650 MG/20 ML UDC- SA PATIENTS-PAIN ONLY GT PRN (00:30)
[2020-01-25] MEDS: POLYVINYL ALCOHOL OPHT DROPS 15 ML BOTTLE EACHEYE PRN (01:10)
[2020-01-25] MEDS: ALBUTEROL SULFATE 2.5 MG/3 ML NEBU NEB SCH ×5 (02:03→21:00)
[2020-01-25] MEDS: PANTOPRAZOLE ORAL SUSPENSION 40 MG SUSPDR.PKT GT SCH ×2 (05:37→17:22)
[2020-01-25 07:46] VITALS: BP 121/98
[2020-01-25] MEDS: ASPIRIN 81 MG TAB.CHEW GT SCH (08:00)
[2020-01-25] MEDS: LOSARTAN POTASSIUM 50 MG TABLET GT SCH (08:04)
[2020-01-25] MEDS: ACIDOPHILUS/BULGARICUS CHEW TAB GT SCH ×2 (08:04→21:00)
[2020-01-25] MEDS: NUTRISOURCE FIBER 4 GM PACKET GT SCH (08:05)
[2020-01-25] MEDS: METOPROLOL TARTRATE 25 MG TABLET GT SCH ×2 (08:05→21:00)
[2020-01-25] MEDS: COD LIVER OIL/ZINC OXIDE OINT 113 GM TUBE TP SCH ×2 (08:07→21:00)
[2020-01-25] MEDS: HEPARIN SODIUM,PORCINE 5,000 UNITS/ML VIAL SQ SCH ×2 (08:15→20:47)
[2020-01-25] MEDS: HYDROGEN PEROXIDE 3% 118 ML BOTTLE TP SCH ×2 (09:00→20:55)
[2020-01-25] MEDS: VITAL AF 1.2 1,000 ML LIQUID GT PRN (12:00)
[2020-01-25 20:00] VITALS: BP 129/62
[2020-01-25] MEDS: ATORVASTATIN 20 MG TABLET GT SCH (21:00)
[2020-01-26] MEDS: ALBUTEROL SULFATE 2.5 MG/3 ML NEBU NEB SCH ×4 (01:02→19:02)
[2020-01-26] MEDS: PANTOPRAZOLE ORAL SUSPENSION 40 MG SUSPDR.PKT GT SCH ×2 (05:20→18:04)
[2020-01-26 07:46] VITALS: BP 135/85
[2020-01-26] MEDS: ASPIRIN 81 MG TAB.CHEW GT SCH (08:29)
[2020-01-26] MEDS: LOSARTAN POTASSIUM 50 MG TABLET GT SCH (08:30)
[2020-01-26] MEDS: ACIDOPHILUS/BULGARICUS CHEW TAB GT SCH ×2 (08:30→20:58)
[2020-01-26] MEDS: METOPROLOL TARTRATE 25 MG TABLET GT SCH ×2 (08:31→20:58)
[2020-01-26] MEDS: NUTRISOURCE FIBER 4 GM PACKET GT SCH (08:31)
[2020-01-26] MEDS: COD LIVER OIL/ZINC OXIDE OINT 113 GM TUBE TP SCH ×2 (08:32→21:00)
[2020-01-26] MEDS: HEPARIN SODIUM,PORCINE 5,000 UNITS/ML VIAL SQ SCH ×2 (08:32→21:59)
[2020-01-26] MEDS: HYDROGEN PEROXIDE 3% 118 ML BOTTLE TP SCH ×2 (09:00→21:22)
[2020-01-26] MEDS: VITAL AF 1.2 1,000 ML LIQUID GT PRN (11:50)
[2020-01-26] MEDS: MULTIVIT, IRON, MIN NO. 8, FA TABLET GT SCH (20:58)
[2020-01-26] MEDS: ATORVASTATIN 20 MG TABLET GT SCH (20:58)
[2020-01-26 22:00] VITALS: BP 136/56
[2020-01-27] MEDS: ALBUTEROL SULFATE 2.5 MG/3 ML NEBU NEB SCH ×4 (00:41→20:22)
[2020-01-27] MEDS: PANTOPRAZOLE ORAL SUSPENSION 40 MG SUSPDR.PKT GT SCH ×2 (06:14→17:24)
[2020-01-27 07:33] VITALS: BP 109/48
[2020-01-27] MEDS: METOPROLOL TARTRATE 25 MG TABLET GT SCH ×2 (09:00→20:46)
[2020-01-27] MEDS: LOSARTAN POTASSIUM 50 MG TABLET GT SCH (09:00)
[2020-01-27] MEDS: ASPIRIN 81 MG TAB.CHEW GT SCH (09:35)
[2020-01-27] MEDS: ACIDOPHILUS/BULGARICUS CHEW TAB GT SCH ×2 (09:35→20:39)
[2020-01-27] MEDS: NUTRISOURCE FIBER 4 GM PACKET GT SCH (09:36)
[2020-01-27] MEDS: COD LIVER OIL/ZINC OXIDE OINT 113 GM TUBE TP SCH ×2 (09:36→20:46)
[2020-01-27] MEDS: HYDROGEN PEROXIDE 3% 118 ML BOTTLE TP SCH ×2 (09:36→21:04)
[2020-01-27] MEDS: HEPARIN SODIUM,PORCINE 5,000 UNITS/ML VIAL SQ SCH ×2 (09:37→20:45)
[2020-01-27] MEDS: VITAL AF 1.2 1,000 ML LIQUID GT PRN (09:44)
--- NOTE | 2020-01-27 16:26 | NUR ---
Covid19 test done.
[2020-01-27] MEDS: ATORVASTATIN 20 MG TABLET GT SCH (20:46)
[2020-01-27 21:56] VITALS: BP 125/83
[2020-01-28] MEDS: ALBUTEROL SULFATE 2.5 MG/3 ML NEBU NEB SCH ×4 (00:40→19:45)
[2020-01-28] MEDS: VITAL AF 1.2 1,000 ML LIQUID GT PRN (04:09)
[2020-01-28] MEDS: PANTOPRAZOLE ORAL SUSPENSION 40 MG SUSPDR.PKT GT SCH ×2 (05:18→17:27)
[2020-01-28 07:41] VITALS: BP 116/63
[2020-01-28] MEDS: METOPROLOL TARTRATE 25 MG TABLET GT SCH ×2 (08:23→20:48)
[2020-01-28] MEDS: ASPIRIN 81 MG TAB.CHEW GT SCH (08:23)
[2020-01-28] MEDS: ACIDOPHILUS/BULGARICUS CHEW TAB GT SCH ×2 (08:23→20:47)
[2020-01-28] MEDS: LOSARTAN POTASSIUM 50 MG TABLET GT SCH (08:23)
[2020-01-28] MEDS: NUTRISOURCE FIBER 4 GM PACKET GT SCH (08:24)
[2020-01-28] MEDS: COD LIVER OIL/ZINC OXIDE OINT 113 GM TUBE TP SCH ×2 (08:24→20:52)
[2020-01-28] MEDS: HEPARIN SODIUM,PORCINE 5,000 UNITS/ML VIAL SQ SCH ×2 (08:24→20:52)
[2020-01-28] MEDS: HYDROGEN PEROXIDE 3% 118 ML BOTTLE TP SCH ×2 (09:13→21:19)
--- NOTE | 2020-01-28 16:05 | NUR ---
NOTIFIED RESPONSIBLE REPUBLICANLISA OF POSSIBLE COVID 19 EXPOSURE AND TESTING PLAN FOR CURRENT AND NEXT WEEK MANDATED. NOTIFIED ALSO OF PT'S NEGATIVE RESULTS FOR COVID 19 TESTING DONE ON 01/27/2020. RESPONSIBLE REPUBLICAN VERBALIZED GOOD UNDERSTANDING.
[2020-01-28 20:40] VITALS: BP 134/66
[2020-01-28] MEDS: ATORVASTATIN 20 MG TABLET GT SCH (20:47)
[2020-01-28] MEDS: MULTIVIT, IRON, MIN NO. 8, FA TABLET GT SCH (20:48)
[2020-01-29] MEDS: ALBUTEROL SULFATE 2.5 MG/3 ML NEBU NEB SCH ×4 (01:21→20:15)
[2020-01-29] MEDS: VITAL AF 1.2 1,000 ML LIQUID GT PRN (05:04)
[2020-01-29] MEDS: PANTOPRAZOLE ORAL SUSPENSION 40 MG SUSPDR.PKT GT SCH ×2 (05:04→17:50)
[2020-01-29 07:30] VITALS: BP 129/78
[2020-01-29 07:50] LABS: BASOPHILS % (AUTO) 0.8 % (0.0-2.0); EOSINOPHILS # (AUTO) 0.3 K/uL (0.0-0.7); EOSINOPHILS % (AUTO) 4.7 % (0.0-7.0); HEMATOCRIT 39.7 % (36.7-47.1); HEMOGLOBIN 13.4 g/dL (12.5-16.3); LYMPHOCYTES # (AUTO) 1.3 K/uL (20.0-40.0); LYMPHOCYTES % (AUTO) 21.3 % (20.5-51.5); MEAN CORPUSCULAR HEMOGLOBIN 32.4 uug (23.8-33.4); MEAN CORPUSCULAR HGB CONC 34 g/dL (32.5-36.3); MEAN CORPUSCULAR VOLUME 96.2 fL (73.0-96.2); MONOCYTES # (AUTO) 0.5 K/uL (2.0-10.0); MONOCYTES % (AUTO) 8.8 % (0.0-11.0); NEUTROPHILS # (AUTO) 3.9 K/uL (1.8-8.9); NEUTROPHILS % (AUTO) 64.4 % (38.5-71.5); PLATELET COUNT (AUTO) 246 K/uL (152-348); RED BLOOD CELL COUNT(AUTO) 4.13 MIL/uL (4.06-5.63)
[2020-01-29 07:53] LABS: CREATININE 0.8 mg/dL (0.6-1.3); PHOSPHOROUS 3.4 mg/dL (2.5-4.9); POTASSIUM 4.3 mmol/L (3.5-5.1)
[2020-01-29] MEDS: ASPIRIN 81 MG TAB.CHEW GT SCH (08:28)
[2020-01-29] MEDS: LOSARTAN POTASSIUM 50 MG TABLET GT SCH (08:28)
[2020-01-29] MEDS: ACIDOPHILUS/BULGARICUS CHEW TAB GT SCH ×2 (08:28→21:17)
[2020-01-29] MEDS: COD LIVER OIL/ZINC OXIDE OINT 113 GM TUBE TP SCH ×2 (08:29→21:18)
[2020-01-29] MEDS: METOPROLOL TARTRATE 25 MG TABLET GT SCH ×2 (08:29→21:00)
[2020-01-29] MEDS: NUTRISOURCE FIBER 4 GM PACKET GT SCH (08:29)
[2020-01-29] MEDS: HEPARIN SODIUM,PORCINE 5,000 UNITS/ML VIAL SQ SCH ×2 (09:00→21:17)
[2020-01-29] MEDS: HYDROGEN PEROXIDE 3% 118 ML BOTTLE TP SCH ×2 (09:39→20:15)
--- NOTE | 2020-01-29 15:25 | NUR ---
SW sent patient's son Reji, daughter Marina, and [id number]-[id number] Gin an email informing them that the next IDT meeting for the patient has been scheduled for 02/05/2020 at 11am, and inviting them to participate in the meeting. SW will wait to hear back from the patient's family regarding their availability to participate in the meeting.
[2020-01-29 20:00] VITALS: BP 117/62
[2020-01-29] MEDS: ATORVASTATIN 20 MG TABLET GT SCH (21:17)
[2020-01-30] MEDS: VITAL AF 1.2 1,000 ML LIQUID GT PRN (01:18)
[2020-01-30] MEDS: ALBUTEROL SULFATE 2.5 MG/3 ML NEBU NEB SCH ×4 (02:00→19:00)
[2020-01-30] MEDS: PANTOPRAZOLE ORAL SUSPENSION 40 MG SUSPDR.PKT GT SCH ×2 (05:21→17:20)
[2020-01-30 08:00] VITALS: BP 105/56
[2020-01-30] MEDS: ASPIRIN 81 MG TAB.CHEW GT SCH (08:47)
[2020-01-30] MEDS: ACIDOPHILUS/BULGARICUS CHEW TAB GT SCH ×2 (08:48→21:03)
[2020-01-30] MEDS: LOSARTAN POTASSIUM 50 MG TABLET GT SCH (08:48)
[2020-01-30] MEDS: METOPROLOL TARTRATE 25 MG TABLET GT SCH ×2 (08:48→21:00)
[2020-01-30] MEDS: HEPARIN SODIUM,PORCINE 5,000 UNITS/ML VIAL SQ SCH ×2 (08:49→21:07)
[2020-01-30] MEDS: NUTRISOURCE FIBER 4 GM PACKET GT SCH (08:49)
[2020-01-30] MEDS: COD LIVER OIL/ZINC OXIDE OINT 113 GM TUBE TP SCH ×2 (08:50→21:07)
[2020-01-30] MEDS: HYDROGEN PEROXIDE 3% 118 ML BOTTLE TP SCH ×2 (09:21→21:08)
[2020-01-30 20:52] VITALS: BP 128/49
[2020-01-30] MEDS: ATORVASTATIN 20 MG TABLET GT SCH (21:03)
[2020-01-30] MEDS: MULTIVIT, IRON, MIN NO. 8, FA TABLET GT SCH (21:05)
[2020-01-31] MEDS: ALBUTEROL SULFATE 2.5 MG/3 ML NEBU NEB SCH ×4 (00:40→19:05)
[2020-01-31] MEDS: PANTOPRAZOLE ORAL SUSPENSION 40 MG SUSPDR.PKT GT SCH ×2 (05:17→17:14)
[2020-01-31 08:01] VITALS: BP 110/62
[2020-01-31] MEDS: ASPIRIN 81 MG TAB.CHEW GT SCH (08:35)
[2020-01-31] MEDS: LOSARTAN POTASSIUM 50 MG TABLET GT SCH (08:35)
[2020-01-31] MEDS: ACIDOPHILUS/BULGARICUS CHEW TAB GT SCH ×2 (08:36→21:07)
[2020-01-31] MEDS: METOPROLOL TARTRATE 25 MG TABLET GT SCH ×2 (08:36→21:08)
[2020-01-31] MEDS: NUTRISOURCE FIBER 4 GM PACKET GT SCH (08:36)
[2020-01-31] MEDS: COD LIVER OIL/ZINC OXIDE OINT 113 GM TUBE TP SCH ×2 (08:37→21:08)
[2020-01-31] MEDS: HEPARIN SODIUM,PORCINE 5,000 UNITS/ML VIAL SQ SCH ×2 (08:37→21:20)
[2020-01-31] MEDS: HYDROGEN PEROXIDE 3% 118 ML BOTTLE TP SCH ×2 (10:00→20:00)
[2020-01-31 20:00] VITALS: BP 130/67
[2020-01-31] MEDS: ATORVASTATIN 20 MG TABLET GT SCH (21:07)
[2020-02-01] MEDS: ALBUTEROL SULFATE 2.5 MG/3 ML NEBU NEB SCH ×4 (00:40→19:33)
[2020-02-01] MEDS: PANTOPRAZOLE ORAL SUSPENSION 40 MG SUSPDR.PKT GT SCH ×2 (05:30→18:00)
[2020-02-01 07:31] VITALS: BP 110/62
[2020-02-01] MEDS: ASPIRIN 81 MG TAB.CHEW GT SCH (08:55)
[2020-02-01] MEDS: ACIDOPHILUS/BULGARICUS CHEW TAB GT SCH ×2 (08:56→21:03)
[2020-02-01] MEDS: LOSARTAN POTASSIUM 50 MG TABLET GT SCH (08:56)
[2020-02-01] MEDS: METOPROLOL TARTRATE 25 MG TABLET GT SCH ×2 (08:56→21:00)
[2020-02-01] MEDS: NUTRISOURCE FIBER 4 GM PACKET GT SCH (08:57)
[2020-02-01] MEDS: HEPARIN SODIUM,PORCINE 5,000 UNITS/ML VIAL SQ SCH ×2 (08:57→21:05)
[2020-02-01] MEDS: COD LIVER OIL/ZINC OXIDE OINT 113 GM TUBE TP SCH ×2 (08:58→21:04)
[2020-02-01] MEDS: HYDROGEN PEROXIDE 3% 118 ML BOTTLE TP SCH ×2 (09:50→21:24)
[2020-02-01] MEDS: VITAL AF 1.2 1,000 ML LIQUID GT PRN (12:30)
[2020-02-01] MEDS: ATORVASTATIN 20 MG TABLET GT SCH (21:03)
[2020-02-01] MEDS: MULTIVIT, IRON, MIN NO. 8, FA TABLET GT SCH (21:04)
[2020-02-01 22:00] VITALS: BP 112/52
[2020-02-02 00:44] VITALS: BP 112/52
[2020-02-02] MEDS: ALBUTEROL SULFATE 2.5 MG/3 ML NEBU NEB SCH ×4 (01:06→19:45)
[2020-02-02] MEDS: PANTOPRAZOLE ORAL SUSPENSION 40 MG SUSPDR.PKT GT SCH ×3 (05:00→18:04)
[2020-02-02 07:42] VITALS: BP 119/64
[2020-02-02] MEDS: HYDROGEN PEROXIDE 3% 118 ML BOTTLE TP SCH ×2 (08:37→21:42)
[2020-02-02] MEDS: ACIDOPHILUS/BULGARICUS CHEW TAB GT SCH ×2 (08:55→21:00)
[2020-02-02] MEDS: ASPIRIN 81 MG TAB.CHEW GT SCH (08:55)
[2020-02-02] MEDS: LOSARTAN POTASSIUM 50 MG TABLET GT SCH (08:55)
[2020-02-02] MEDS: NUTRISOURCE FIBER 4 GM PACKET GT SCH (08:56)
[2020-02-02] MEDS: METOPROLOL TARTRATE 25 MG TABLET GT SCH ×2 (08:56→21:00)
[2020-02-02] MEDS: COD LIVER OIL/ZINC OXIDE OINT 113 GM TUBE TP SCH ×2 (08:57→21:00)
[2020-02-02] MEDS: HEPARIN SODIUM,PORCINE 5,000 UNITS/ML VIAL SQ SCH ×2 (08:58→21:06)
[2020-02-02 20:16] VITALS: BP 117/61
[2020-02-02] MEDS: ATORVASTATIN 20 MG TABLET GT SCH (21:00)
[2020-02-03] MEDS: ALBUTEROL SULFATE 2.5 MG/3 ML NEBU NEB SCH ×4 (01:31→19:44)
[2020-02-03] MEDS: PANTOPRAZOLE ORAL SUSPENSION 40 MG SUSPDR.PKT GT SCH ×2 (05:30→17:22)
[2020-02-03 07:45] VITALS: BP 136/38
[2020-02-03] MEDS: HYDROGEN PEROXIDE 3% 118 ML BOTTLE TP SCH ×2 (08:54→21:00)
[2020-02-03] MEDS: LOSARTAN POTASSIUM 50 MG TABLET GT SCH (09:00)
[2020-02-03] MEDS: METOPROLOL TARTRATE 25 MG TABLET GT SCH ×2 (09:00→20:21)
[2020-02-03] MEDS: ASPIRIN 81 MG TAB.CHEW GT SCH (09:11)
[2020-02-03] MEDS: NUTRISOURCE FIBER 4 GM PACKET GT SCH (09:12)
[2020-02-03] MEDS: COD LIVER OIL/ZINC OXIDE OINT 113 GM TUBE TP SCH ×2 (09:12→20:21)
[2020-02-03] MEDS: ACIDOPHILUS/BULGARICUS CHEW TAB GT SCH ×2 (09:13→20:21)
[2020-02-03] MEDS: HEPARIN SODIUM,PORCINE 5,000 UNITS/ML VIAL SQ SCH ×2 (09:14→20:21)
[2020-02-03 20:16] VITALS: BP 126/54
[2020-02-03] MEDS: ATORVASTATIN 20 MG TABLET GT SCH (20:21)
[2020-02-03] MEDS: MULTIVIT, IRON, MIN NO. 8, FA TABLET GT SCH (20:21)
[2020-02-04] MEDS: ALBUTEROL SULFATE 2.5 MG/3 ML NEBU NEB SCH ×4 (01:33→19:20)
[2020-02-04] MEDS: VITAL AF 1.2 1,000 ML LIQUID GT PRN (03:50)
[2020-02-04] MEDS: PANTOPRAZOLE ORAL SUSPENSION 40 MG SUSPDR.PKT GT SCH ×2 (05:18→17:25)
[2020-02-04 07:25] VITALS: BP 139/60
[2020-02-04] MEDS: HEPARIN SODIUM,PORCINE 5,000 UNITS/ML VIAL SQ SCH ×2 (08:10→20:27)
[2020-02-04] MEDS: ASPIRIN 81 MG TAB.CHEW GT SCH (08:14)
[2020-02-04] MEDS: ACIDOPHILUS/BULGARICUS CHEW TAB GT SCH ×2 (08:14→20:24)
[2020-02-04] MEDS: NUTRISOURCE FIBER 4 GM PACKET GT SCH (08:14)
[2020-02-04] MEDS: METOPROLOL TARTRATE 25 MG TABLET GT SCH ×2 (08:14→20:24)
[2020-02-04] MEDS: LOSARTAN POTASSIUM 50 MG TABLET GT SCH (08:14)
[2020-02-04] MEDS: COD LIVER OIL/ZINC OXIDE OINT 113 GM TUBE TP SCH ×2 (08:15→20:27)
[2020-02-04] MEDS: HYDROGEN PEROXIDE 3% 118 ML BOTTLE TP SCH ×2 (09:50→19:20)
--- NOTE | 2020-02-04 15:30 | NUR ---
NEW ORDER CARRIED OUT FOR COVID 19 TEST.
--- NOTE | 2020-02-04 16:12 | NUR ---
Called and spoke to Reji colon's son made aware of the covid testing to be done to the pt.
[2020-02-04 19:54] VITALS: BP 107/54
[2020-02-04] MEDS: ATORVASTATIN 20 MG TABLET GT SCH (20:24)
[2020-02-05] MEDS: VITAL AF 1.2 1,000 ML LIQUID GT PRN (01:00)
[2020-02-05] MEDS: ALBUTEROL SULFATE 2.5 MG/3 ML NEBU NEB SCH ×5 (01:30→19:35)
[2020-02-05] MEDS: PANTOPRAZOLE ORAL SUSPENSION 40 MG SUSPDR.PKT GT SCH ×2 (06:40→17:06)
[2020-02-05 07:27] VITALS: BP 118/44
[2020-02-05] MEDS: ASPIRIN 81 MG TAB.CHEW GT SCH (08:29)
[2020-02-05] MEDS: LOSARTAN POTASSIUM 50 MG TABLET GT SCH (08:30)
[2020-02-05] MEDS: METOPROLOL TARTRATE 25 MG TABLET GT SCH ×2 (08:30→21:00)
[2020-02-05] MEDS: ACIDOPHILUS/BULGARICUS CHEW TAB GT SCH ×2 (08:30→21:23)
[2020-02-05] MEDS: HEPARIN SODIUM,PORCINE 5,000 UNITS/ML VIAL SQ SCH ×2 (08:31→21:26)
[2020-02-05] MEDS: NUTRISOURCE FIBER 4 GM PACKET GT SCH (08:31)
[2020-02-05] MEDS: COD LIVER OIL/ZINC OXIDE OINT 113 GM TUBE TP SCH ×2 (08:31→21:26)
[2020-02-05] MEDS: HYDROGEN PEROXIDE 3% 118 ML BOTTLE TP SCH ×2 (09:31→21:19)
--- NOTE | 2020-02-05 15:41 | NUR ---
INTERDISCIPLINARY PLAN OF CARE CONFERENCE was held today. Patient's [id number] Gin participated in the meeting via speaker phone. Dr. Leary and the Interdisciplinary Team reviewed the current plan of care in detail. RN reported on patient's medical condition and recent lab findings. See RN IDT conference notes. No major changes in medical condition were reported by nursing or by other disciplines. Dr. Leary discussed findings of most recent CT-scan. See all disciplines IDT notes and physician's progress notes for additional details. Gin'a questions were addressed by the IDT team, and Gin expressed being content with the current plan of care.
[2020-02-05 20:31] VITALS: BP 116/57
[2020-02-05] MEDS: ATORVASTATIN 20 MG TABLET GT SCH (21:24)
[2020-02-05] MEDS: MULTIVIT, IRON, MIN NO. 8, FA TABLET GT SCH (21:25)
[2020-02-06] MEDS: VITAL AF 1.2 1,000 ML LIQUID GT PRN ×2 (01:28→23:53)
[2020-02-06] MEDS: ALBUTEROL SULFATE 2.5 MG/3 ML NEBU NEB SCH ×4 (01:35→19:42)
[2020-02-06] MEDS: PANTOPRAZOLE ORAL SUSPENSION 40 MG SUSPDR.PKT GT SCH ×2 (06:29→17:54)
[2020-02-06 07:45] VITALS: BP 117/62
[2020-02-06] MEDS: LOSARTAN POTASSIUM 25 MG TABLET GT SCH (08:50)
[2020-02-06] MEDS: ASPIRIN 81 MG TAB.CHEW GT SCH (08:50)
[2020-02-06] MEDS: NUTRISOURCE FIBER 4 GM PACKET GT SCH (08:51)
[2020-02-06] MEDS: ACIDOPHILUS/BULGARICUS CHEW TAB GT SCH ×2 (08:51→20:30)
[2020-02-06] MEDS: METOPROLOL TARTRATE 25 MG TABLET GT SCH ×2 (08:51→20:32)
[2020-02-06] MEDS: HEPARIN SODIUM,PORCINE 5,000 UNITS/ML VIAL SQ SCH ×2 (08:52→20:31)
[2020-02-06] MEDS: COD LIVER OIL/ZINC OXIDE OINT 113 GM TUBE TP SCH ×2 (08:53→20:56)
[2020-02-06] MEDS: HYDROGEN PEROXIDE 3% 118 ML BOTTLE TP SCH ×2 (09:45→21:23)
--- NOTE | 2020-02-06 18:33 | NUR ---
Marina Felipe's daughter notified COVID 19 results is negative.
[2020-02-06 20:00] VITALS: BP 128/56
[2020-02-06] MEDS: ATORVASTATIN 20 MG TABLET GT SCH (20:31)
[2020-02-07] MEDS: ALBUTEROL SULFATE 2.5 MG/3 ML NEBU NEB SCH ×4 (01:01→19:29)
[2020-02-07] MEDS: PANTOPRAZOLE ORAL SUSPENSION 40 MG SUSPDR.PKT GT SCH ×2 (05:58→17:41)
[2020-02-07 07:27] VITALS: BP 119/60
[2020-02-07] MEDS: ASPIRIN 81 MG TAB.CHEW GT SCH (08:20)
[2020-02-07] MEDS: ACIDOPHILUS/BULGARICUS CHEW TAB GT SCH ×2 (08:21→20:12)
[2020-02-07] MEDS: LOSARTAN POTASSIUM 25 MG TABLET GT SCH (08:21)
[2020-02-07] MEDS: METOPROLOL TARTRATE 25 MG TABLET GT SCH ×2 (08:22→20:13)
[2020-02-07] MEDS: COD LIVER OIL/ZINC OXIDE OINT 113 GM TUBE TP SCH ×2 (08:22→20:16)
[2020-02-07] MEDS: NUTRISOURCE FIBER 4 GM PACKET GT SCH (08:22)
[2020-02-07] MEDS: HEPARIN SODIUM,PORCINE 5,000 UNITS/ML VIAL SQ SCH ×2 (08:23→20:16)
[2020-02-07] MEDS: HYDROGEN PEROXIDE 3% 118 ML BOTTLE TP SCH ×2 (09:00→21:00)
[2020-02-07] MEDS: VITAL AF 1.2 1,000 ML LIQUID GT PRN (17:41)
[2020-02-07] MEDS: ATORVASTATIN 20 MG TABLET GT SCH (20:12)
[2020-02-07] MEDS: MULTIVIT, IRON, MIN NO. 8, FA TABLET GT SCH (20:14)
[2020-02-07 20:21] VITALS: BP 118/68
[2020-02-08] MEDS: ALBUTEROL SULFATE 2.5 MG/3 ML NEBU NEB SCH ×6 (01:35→19:05)
[2020-02-08] MEDS: PANTOPRAZOLE ORAL SUSPENSION 40 MG SUSPDR.PKT GT SCH ×2 (05:26→17:39)
[2020-02-08 07:54] VITALS: BP 111/49
[2020-02-08] MEDS: ASPIRIN 81 MG TAB.CHEW GT SCH (08:58)
[2020-02-08] MEDS: LOSARTAN POTASSIUM 25 MG TABLET GT SCH (08:58)
[2020-02-08] MEDS: METOPROLOL TARTRATE 25 MG TABLET GT SCH ×2 (08:59→20:50)
[2020-02-08] MEDS: NUTRISOURCE FIBER 4 GM PACKET GT SCH (08:59)
[2020-02-08] MEDS: ACIDOPHILUS/BULGARICUS CHEW TAB GT SCH ×2 (08:59→20:50)
[2020-02-08] MEDS: HEPARIN SODIUM,PORCINE 5,000 UNITS/ML VIAL SQ SCH ×2 (09:00→21:00)
[2020-02-08] MEDS: COD LIVER OIL/ZINC OXIDE OINT 113 GM TUBE TP SCH ×2 (09:00→20:51)
[2020-02-08] MEDS: HYDROGEN PEROXIDE 3% 118 ML BOTTLE TP SCH ×2 (09:00→21:45)
[2020-02-08 20:17] VITALS: BP 123/61
[2020-02-08] MEDS: ATORVASTATIN 20 MG TABLET GT SCH (20:50)
[2020-02-09] MEDS: ALBUTEROL SULFATE 2.5 MG/3 ML NEBU NEB SCH ×4 (00:23→19:03)
[2020-02-09] MEDS: PANTOPRAZOLE ORAL SUSPENSION 40 MG SUSPDR.PKT GT SCH ×2 (06:23→17:42)
[2020-02-09 07:40] VITALS: BP 110/60
[2020-02-09] MEDS: METOPROLOL TARTRATE 25 MG TABLET GT SCH ×2 (08:58→20:29)
[2020-02-09] MEDS: ASPIRIN 81 MG TAB.CHEW GT SCH (08:58)
[2020-02-09] MEDS: LOSARTAN POTASSIUM 25 MG TABLET GT SCH (08:58)
[2020-02-09] MEDS: ACIDOPHILUS/BULGARICUS CHEW TAB GT SCH ×2 (08:58→20:28)
[2020-02-09] MEDS: NUTRISOURCE FIBER 4 GM PACKET GT SCH (08:59)
[2020-02-09] MEDS: HEPARIN SODIUM,PORCINE 5,000 UNITS/ML VIAL SQ SCH ×2 (09:00→20:29)
[2020-02-09] MEDS: HYDROGEN PEROXIDE 3% 118 ML BOTTLE TP SCH ×2 (09:00→21:03)
[2020-02-09] MEDS: COD LIVER OIL/ZINC OXIDE OINT 113 GM TUBE TP SCH ×2 (09:00→20:28)
[2020-02-09] MEDS: VITAL AF 1.2 1,000 ML LIQUID GT PRN (09:34)
[2020-02-09] MEDS: MULTIVIT, IRON, MIN NO. 8, FA TABLET GT SCH (20:28)
[2020-02-09] MEDS: ATORVASTATIN 20 MG TABLET GT SCH (20:28)
[2020-02-09 21:38] VITALS: BP 128/53
[2020-02-10] MEDS: ALBUTEROL SULFATE 2.5 MG/3 ML NEBU NEB SCH ×4 (01:07→19:26)
[2020-02-10] MEDS: VITAL AF 1.2 1,000 ML LIQUID GT PRN ×2 (06:36→22:35)
[2020-02-10] MEDS: PANTOPRAZOLE ORAL SUSPENSION 40 MG SUSPDR.PKT GT SCH ×2 (06:36→17:35)
[2020-02-10 08:01] VITALS: BP 137/51
[2020-02-10] MEDS: ASPIRIN 81 MG TAB.CHEW GT SCH (08:58)
[2020-02-10] MEDS: ACIDOPHILUS/BULGARICUS CHEW TAB GT SCH ×2 (08:59→20:59)
[2020-02-10] MEDS: LOSARTAN POTASSIUM 25 MG TABLET GT SCH (08:59)
[2020-02-10] MEDS: METOPROLOL TARTRATE 25 MG TABLET GT SCH ×2 (09:00→20:59)
[2020-02-10] MEDS: HYDROGEN PEROXIDE 3% 118 ML BOTTLE TP SCH ×2 (09:00→21:12)
[2020-02-10] MEDS: NUTRISOURCE FIBER 4 GM PACKET GT SCH (09:01)
[2020-02-10] MEDS: HEPARIN SODIUM,PORCINE 5,000 UNITS/ML VIAL SQ SCH ×2 (09:02→20:40)
[2020-02-10] MEDS: COD LIVER OIL/ZINC OXIDE OINT 113 GM TUBE TP SCH ×2 (09:02→20:59)
[2020-02-10] MEDS: ATORVASTATIN 20 MG TABLET GT SCH (20:59)
[2020-02-10 23:00] VITALS: BP 123/58
[2020-02-11] MEDS: ALBUTEROL SULFATE 2.5 MG/3 ML NEBU NEB SCH ×4 (01:20→19:37)
[2020-02-11] MEDS: PANTOPRAZOLE ORAL SUSPENSION 40 MG SUSPDR.PKT GT SCH ×2 (05:03→17:17)
[2020-02-11 07:43] VITALS: BP 129/61
[2020-02-11] MEDS: ASPIRIN 81 MG TAB.CHEW GT SCH (08:59)
[2020-02-11] MEDS: METOPROLOL TARTRATE 25 MG TABLET GT SCH ×2 (09:00→20:09)
[2020-02-11] MEDS: ACIDOPHILUS/BULGARICUS CHEW TAB GT SCH ×2 (09:00→20:08)
[2020-02-11] MEDS: NUTRISOURCE FIBER 4 GM PACKET GT SCH (09:00)
[2020-02-11] MEDS: LOSARTAN POTASSIUM 25 MG TABLET GT SCH (09:00)
[2020-02-11] MEDS: HEPARIN SODIUM,PORCINE 5,000 UNITS/ML VIAL SQ SCH ×2 (09:01→20:11)
[2020-02-11] MEDS: COD LIVER OIL/ZINC OXIDE OINT 113 GM TUBE TP SCH ×2 (09:01→20:11)
[2020-02-11] MEDS: HYDROGEN PEROXIDE 3% 118 ML BOTTLE TP SCH ×2 (09:15→21:00)
[2020-02-11] MEDS: VITAL AF 1.2 1,000 ML LIQUID GT PRN (17:17)
[2020-02-11] MEDS: ATORVASTATIN 20 MG TABLET GT SCH (20:08)
[2020-02-11] MEDS: MULTIVIT, IRON, MIN NO. 8, FA TABLET GT SCH (20:10)
[2020-02-11 22:48] VITALS: BP 121/56
[2020-02-12] MEDS: ALBUTEROL SULFATE 2.5 MG/3 ML NEBU NEB SCH ×4 (01:04→19:02)
[2020-02-12 07:32] VITALS: BP 131/65
[2020-02-12] MEDS: HYDROGEN PEROXIDE 3% 118 ML BOTTLE TP SCH ×2 (08:00→21:30)
[2020-02-12] MEDS: ASPIRIN 81 MG TAB.CHEW GT SCH (08:31)
[2020-02-12] MEDS: ACIDOPHILUS/BULGARICUS CHEW TAB GT SCH ×2 (08:31→20:30)
[2020-02-12] MEDS: LOSARTAN POTASSIUM 25 MG TABLET GT SCH (08:31)
[2020-02-12] MEDS: METOPROLOL TARTRATE 25 MG TABLET GT SCH ×2 (08:32→20:35)
[2020-02-12] MEDS: HEPARIN SODIUM,PORCINE 5,000 UNITS/ML VIAL SQ SCH ×2 (08:33→21:00)
[2020-02-12] MEDS: COD LIVER OIL/ZINC OXIDE OINT 113 GM TUBE TP SCH ×2 (08:33→20:37)
[2020-02-12] MEDS: NUTRISOURCE FIBER 4 GM PACKET GT SCH (08:33)
[2020-02-12] MEDS: PANTOPRAZOLE ORAL SUSPENSION 40 MG SUSPDR.PKT GT SCH (17:20)
[2020-02-12 20:26] VITALS: BP 130/80
[2020-02-12] MEDS: ATORVASTATIN 20 MG TABLET GT SCH (20:31)
[2020-02-13] MEDS: ALBUTEROL SULFATE 2.5 MG/3 ML NEBU NEB SCH ×4 (01:05→19:34)
[2020-02-13] MEDS: PANTOPRAZOLE ORAL SUSPENSION 40 MG SUSPDR.PKT GT SCH ×2 (06:16→17:38)
[2020-02-13 07:44] VITALS: BP 110/62
[2020-02-13] MEDS: HYDROGEN PEROXIDE 3% 118 ML BOTTLE TP SCH ×2 (08:19→20:33)
[2020-02-13] MEDS: HEPARIN SODIUM,PORCINE 5,000 UNITS/ML VIAL SQ SCH ×2 (08:25→20:27)
[2020-02-13] MEDS: NUTRISOURCE FIBER 4 GM PACKET GT SCH (08:28)
[2020-02-13] MEDS: METOPROLOL TARTRATE 25 MG TABLET GT SCH ×2 (08:29→20:24)
[2020-02-13] MEDS: LOSARTAN POTASSIUM 25 MG TABLET GT SCH (08:30)
[2020-02-13] MEDS: ASPIRIN 81 MG TAB.CHEW GT SCH (08:30)
[2020-02-13] MEDS: COD LIVER OIL/ZINC OXIDE OINT 113 GM TUBE TP SCH ×2 (08:31→20:27)
[2020-02-13] MEDS: ACIDOPHILUS/BULGARICUS CHEW TAB GT SCH ×2 (08:31→20:19)
[2020-02-13] MEDS: VITAL AF 1.2 1,000 ML LIQUID GT PRN (12:32)
[2020-02-13 20:03] VITALS: BP 118/52
[2020-02-13] MEDS: ATORVASTATIN 20 MG TABLET GT SCH (20:23)
[2020-02-13] MEDS: MULTIVIT, IRON, MIN NO. 8, FA TABLET GT SCH (20:24)
[2020-02-14] MEDS: ALBUTEROL SULFATE 2.5 MG/3 ML NEBU NEB SCH ×4 (00:42→19:05)
[2020-02-14] MEDS: PANTOPRAZOLE ORAL SUSPENSION 40 MG SUSPDR.PKT GT SCH ×2 (05:24→17:02)
[2020-02-14] MEDS: HYDROGEN PEROXIDE 3% 118 ML BOTTLE TP SCH ×2 (07:07→21:03)
[2020-02-14 07:46] VITALS: BP 111/63
[2020-02-14] MEDS: HEPARIN SODIUM,PORCINE 5,000 UNITS/ML VIAL SQ SCH ×2 (08:44→20:16)
[2020-02-14] MEDS: NUTRISOURCE FIBER 4 GM PACKET GT SCH (08:44)
[2020-02-14] MEDS: ASPIRIN 81 MG TAB.CHEW GT SCH (08:45)
[2020-02-14] MEDS: LOSARTAN POTASSIUM 25 MG TABLET GT SCH (08:46)
[2020-02-14] MEDS: ACIDOPHILUS/BULGARICUS CHEW TAB GT SCH ×2 (08:46→20:15)
[2020-02-14] MEDS: COD LIVER OIL/ZINC OXIDE OINT 113 GM TUBE TP SCH ×2 (08:47→20:18)
[2020-02-14] MEDS: METOPROLOL TARTRATE 25 MG TABLET GT SCH ×2 (08:47→20:16)
[2020-02-14] MEDS: VITAL AF 1.2 1,000 ML LIQUID GT PRN (11:28)
--- NOTE | 2020-02-14 13:34 | NUR ---
SW notified patient's family that patient is due for his annual eye exam at the end of this month, and asked the family if they would like for patient to have his annual exam. Patient's daughter Gin stated that the family is in agreement with patient getting his annual eye exam.
[2020-02-14 20:00] VITALS: BP 118/52
[2020-02-14] MEDS: ATORVASTATIN 20 MG TABLET GT SCH (20:15)
[2020-02-15] MEDS: ALBUTEROL SULFATE 2.5 MG/3 ML NEBU NEB SCH ×4 (01:40→19:29)
[2020-02-15] MEDS: PANTOPRAZOLE ORAL SUSPENSION 40 MG SUSPDR.PKT GT SCH ×2 (05:31→17:28)
[2020-02-15] MEDS: VITAL AF 1.2 1,000 ML LIQUID GT PRN (05:31)
[2020-02-15] MEDS: HYDROGEN PEROXIDE 3% 118 ML BOTTLE TP SCH ×2 (07:12→21:01)
[2020-02-15 07:43] VITALS: BP 131/72
[2020-02-15] MEDS: ASPIRIN 81 MG TAB.CHEW GT SCH (08:45)
[2020-02-15] MEDS: METOPROLOL TARTRATE 25 MG TABLET GT SCH ×2 (08:45→20:47)
[2020-02-15] MEDS: LOSARTAN POTASSIUM 25 MG TABLET GT SCH (08:45)
[2020-02-15] MEDS: ACIDOPHILUS/BULGARICUS CHEW TAB GT SCH ×2 (08:45→20:47)
[2020-02-15] MEDS: NUTRISOURCE FIBER 4 GM PACKET GT SCH (08:46)
[2020-02-15] MEDS: COD LIVER OIL/ZINC OXIDE OINT 113 GM TUBE TP SCH ×2 (08:51→20:48)
[2020-02-15] MEDS: HEPARIN SODIUM,PORCINE 5,000 UNITS/ML VIAL SQ SCH ×2 (08:51→21:00)
[2020-02-15 20:16] VITALS: BP 140/57
[2020-02-15] MEDS: ATORVASTATIN 20 MG TABLET GT SCH (20:47)
[2020-02-15] MEDS: MULTIVIT, IRON, MIN NO. 8, FA TABLET GT SCH (20:48)
[2020-02-16] MEDS: ALBUTEROL SULFATE 2.5 MG/3 ML NEBU NEB SCH ×4 (01:00→19:45)
[2020-02-16] MEDS: VITAL AF 1.2 1,000 ML LIQUID GT PRN ×2 (03:05→22:51)
[2020-02-16] MEDS: PANTOPRAZOLE ORAL SUSPENSION 40 MG SUSPDR.PKT GT SCH ×2 (05:51→17:16)
[2020-02-16 07:47] VITALS: BP 113/73
[2020-02-16] MEDS: HYDROGEN PEROXIDE 3% 118 ML BOTTLE TP SCH ×2 (07:50→21:32)
[2020-02-16] MEDS: ASPIRIN 81 MG TAB.CHEW GT SCH (08:24)
[2020-02-16] MEDS: ACIDOPHILUS/BULGARICUS CHEW TAB GT SCH ×2 (08:25→20:18)
[2020-02-16] MEDS: LOSARTAN POTASSIUM 25 MG TABLET GT SCH (08:25)
[2020-02-16] MEDS: HEPARIN SODIUM,PORCINE 5,000 UNITS/ML VIAL SQ SCH ×2 (08:26→20:21)
[2020-02-16] MEDS: NUTRISOURCE FIBER 4 GM PACKET GT SCH (08:26)
[2020-02-16] MEDS: METOPROLOL TARTRATE 25 MG TABLET GT SCH ×2 (08:26→20:18)
[2020-02-16] MEDS: COD LIVER OIL/ZINC OXIDE OINT 113 GM TUBE TP SCH ×2 (08:26→20:23)
[2020-02-16 20:16] VITALS: BP 123/57
[2020-02-16] MEDS: ATORVASTATIN 20 MG TABLET GT SCH (20:19)
[2020-02-17] MEDS: ALBUTEROL SULFATE 2.5 MG/3 ML NEBU NEB SCH ×4 (01:55→19:48)
[2020-02-17] MEDS: PANTOPRAZOLE ORAL SUSPENSION 40 MG SUSPDR.PKT GT SCH ×2 (05:02→17:25)
[2020-02-17] MEDS: HYDROGEN PEROXIDE 3% 118 ML BOTTLE TP SCH ×2 (07:46→21:16)
[2020-02-17 08:06] VITALS: BP 121/48
[2020-02-17] MEDS: HEPARIN SODIUM,PORCINE 5,000 UNITS/ML VIAL SQ SCH ×2 (08:40→21:00)
[2020-02-17] MEDS: LOSARTAN POTASSIUM 25 MG TABLET GT SCH (08:40)
[2020-02-17] MEDS: ACIDOPHILUS/BULGARICUS CHEW TAB GT SCH ×2 (08:40→21:55)
[2020-02-17] MEDS: ASPIRIN 81 MG TAB.CHEW GT SCH (08:40)
[2020-02-17] MEDS: METOPROLOL TARTRATE 25 MG TABLET GT SCH ×2 (08:41→21:00)
[2020-02-17] MEDS: COD LIVER OIL/ZINC OXIDE OINT 113 GM TUBE TP SCH ×2 (08:41→21:56)
[2020-02-17] MEDS: NUTRISOURCE FIBER 4 GM PACKET GT SCH (08:41)
--- NOTE | 2020-02-17 13:30 | NUR ---
VIDEO ZOOM PROVIDED WITH PT'S SON ROSALINDA SIDDHARTHA.
[2020-02-17 20:01] VITALS: BP 125/61
[2020-02-17] MEDS: ATORVASTATIN 20 MG TABLET GT SCH (21:55)
[2020-02-17] MEDS: MULTIVIT, IRON, MIN NO. 8, FA TABLET GT SCH (21:56)
--- NOTE | 2020-02-17 22:48 | NUR ---
Seen and examined by KRISH Freeman with No new orders.
[2020-02-18] MEDS: ALBUTEROL SULFATE 2.5 MG/3 ML NEBU NEB SCH ×4 (01:30→19:41)
[2020-02-18] MEDS: PANTOPRAZOLE ORAL SUSPENSION 40 MG SUSPDR.PKT GT SCH ×2 (05:56→17:19)
[2020-02-18 07:51] VITALS: BP 120/50
[2020-02-18] MEDS: ACIDOPHILUS/BULGARICUS CHEW TAB GT SCH ×2 (08:30→21:00)
[2020-02-18] MEDS: ASPIRIN 81 MG TAB.CHEW GT SCH (08:30)
[2020-02-18] MEDS: LOSARTAN POTASSIUM 25 MG TABLET GT SCH (08:30)
[2020-02-18] MEDS: METOPROLOL TARTRATE 25 MG TABLET GT SCH ×2 (08:31→21:00)
[2020-02-18] MEDS: NUTRISOURCE FIBER 4 GM PACKET GT SCH (08:31)
[2020-02-18] MEDS: COD LIVER OIL/ZINC OXIDE OINT 113 GM TUBE TP SCH ×2 (08:31→21:00)
[2020-02-18] MEDS: HEPARIN SODIUM,PORCINE 5,000 UNITS/ML VIAL SQ SCH ×2 (08:32→21:00)
[2020-02-18] MEDS: HYDROGEN PEROXIDE 3% 118 ML BOTTLE TP SCH ×2 (09:00→21:27)
--- NOTE | 2020-02-18 11:07 | NUR ---
NEW ORDER WAS CARRIED OUT FOR COVID19 TEST FROM DR GUTIERREZ AND PT'S SON ROSALINDA AWARE AND IN AGREEMENT AND ORDER CARRIED OUT.
[2020-02-18] MEDS: VITAL AF 1.2 1,000 ML LIQUID GT PRN (15:16)
[2020-02-18 20:17] VITALS: BP 122/57
[2020-02-18 20:22] VITALS: BP 112/65
[2020-02-18] MEDS: ATORVASTATIN 20 MG TABLET GT SCH (21:00)
[2020-02-19] MEDS: ALBUTEROL SULFATE 2.5 MG/3 ML NEBU NEB SCH ×4 (01:30→19:36)
[2020-02-19] MEDS: PANTOPRAZOLE ORAL SUSPENSION 40 MG SUSPDR.PKT GT SCH ×2 (05:34→17:23)
[2020-02-19 06:29] LABS: BASOPHILS # (AUTO) 0.1 K/uL (0.0-8.0); BASOPHILS % (AUTO) 1.4 % (0.0-2.0); EOSINOPHILS # (AUTO) 0.6 K/uL (0.0-0.7); EOSINOPHILS % (AUTO) 8.9 % (0.0-7.0); HEMATOCRIT 37.3 % (36.7-47.1); HEMOGLOBIN 12.8 g/dL (12.5-16.3); LYMPHOCYTES # (AUTO) 1.6 K/uL (20.0-40.0); LYMPHOCYTES % (AUTO) 25.1 % (20.5-51.5); MEAN CORPUSCULAR HEMOGLOBIN 32.9 uug (23.8-33.4); MEAN CORPUSCULAR HGB CONC 34 g/dL (32.5-36.3); MEAN CORPUSCULAR VOLUME 96.2 fL (73.0-96.2); MONOCYTES # (AUTO) 0.4 K/uL (2.0-10.0); MONOCYTES % (AUTO) 5.7 % (0.0-11.0); NEUTROPHILS # (AUTO) 3.8 K/uL (1.8-8.9); NEUTROPHILS % (AUTO) 58.9 % (38.5-71.5); PLATELET COUNT (AUTO) 247 K/uL (152-348); RED BLOOD CELL COUNT(AUTO) 3.88 MIL/uL (4.06-5.63); WHITE BLOOD COUNT (AUTO) 6.4 K/uL (3.6-10.2)
[2020-02-19 06:41] LABS: CREATININE 0.7 mg/dL (0.6-1.3); MAGNESIUM 1.9 mg/dL (1.8-2.4); PHOSPHOROUS 3.4 mg/dL (2.5-4.9)
[2020-02-19 07:23] VITALS: BP 128/62
[2020-02-19] MEDS: ACIDOPHILUS/BULGARICUS CHEW TAB GT SCH ×2 (08:29→20:20)
[2020-02-19] MEDS: ASPIRIN 81 MG TAB.CHEW GT SCH (08:29)
[2020-02-19] MEDS: LOSARTAN POTASSIUM 25 MG TABLET GT SCH (08:29)
[2020-02-19] MEDS: NUTRISOURCE FIBER 4 GM PACKET GT SCH (08:30)
[2020-02-19] MEDS: METOPROLOL TARTRATE 25 MG TABLET GT SCH ×2 (08:30→20:21)
[2020-02-19] MEDS: HEPARIN SODIUM,PORCINE 5,000 UNITS/ML VIAL SQ SCH ×2 (08:31→21:00)
[2020-02-19] MEDS: COD LIVER OIL/ZINC OXIDE OINT 113 GM TUBE TP SCH ×2 (08:32→20:22)
[2020-02-19] MEDS: HYDROGEN PEROXIDE 3% 118 ML BOTTLE TP SCH ×2 (09:45→21:11)
[2020-02-19] MEDS: ATORVASTATIN 20 MG TABLET GT SCH (20:21)
[2020-02-19] MEDS: MULTIVIT, IRON, MIN NO. 8, FA TABLET GT SCH (20:22)
--- NOTE | 2020-02-19 21:00 | NUR ---
RECEIVED PHONE CALLED FROM [facility] RESULT IS NEGATIVE NOTED.
[2020-02-19 23:20] VITALS: BP 123/64
[2020-02-20] MEDS: ALBUTEROL SULFATE 2.5 MG/3 ML NEBU NEB SCH ×4 (00:59→19:14)
[2020-02-20] MEDS: PANTOPRAZOLE ORAL SUSPENSION 40 MG SUSPDR.PKT GT SCH ×2 (05:14→17:01)
[2020-02-20] MEDS: HYDROGEN PEROXIDE 3% 118 ML BOTTLE TP SCH ×2 (07:15→19:14)
[2020-02-20 07:48] VITALS: BP 129/58
[2020-02-20] MEDS: LOSARTAN POTASSIUM 25 MG TABLET GT SCH (08:23)
[2020-02-20] MEDS: ASPIRIN 81 MG TAB.CHEW GT SCH (08:23)
[2020-02-20] MEDS: ACIDOPHILUS/BULGARICUS CHEW TAB GT SCH ×2 (08:23→21:22)
[2020-02-20] MEDS: NUTRISOURCE FIBER 4 GM PACKET GT SCH (08:24)
[2020-02-20] MEDS: METOPROLOL TARTRATE 25 MG TABLET GT SCH ×2 (08:24→21:00)
[2020-02-20] MEDS: COD LIVER OIL/ZINC OXIDE OINT 113 GM TUBE TP SCH ×2 (08:24→21:27)
[2020-02-20] MEDS: HEPARIN SODIUM,PORCINE 5,000 UNITS/ML VIAL SQ SCH ×2 (08:25→21:00)
[2020-02-20] MEDS: VITAL AF 1.2 1,000 ML LIQUID GT PRN (17:01)
[2020-02-20] MEDS: ATORVASTATIN 20 MG TABLET GT SCH (21:22)
[2020-02-20 22:06] VITALS: BP 124/55
[2020-02-21] MEDS: ALBUTEROL SULFATE 2.5 MG/3 ML NEBU NEB SCH ×4 (00:40→19:22)
[2020-02-21] MEDS: PANTOPRAZOLE ORAL SUSPENSION 40 MG SUSPDR.PKT GT SCH ×2 (06:02→17:48)
[2020-02-21 08:00] VITALS: BP 129/74
[2020-02-21] MEDS: ASPIRIN 81 MG TAB.CHEW GT SCH (08:28)
[2020-02-21] MEDS: ACIDOPHILUS/BULGARICUS CHEW TAB GT SCH ×2 (08:30→21:12)
[2020-02-21] MEDS: METOPROLOL TARTRATE 25 MG TABLET GT SCH ×2 (08:31→21:00)
[2020-02-21] MEDS: LOSARTAN POTASSIUM 25 MG TABLET GT SCH (08:31)
[2020-02-21] MEDS: NUTRISOURCE FIBER 4 GM PACKET GT SCH (08:31)
[2020-02-21] MEDS: HEPARIN SODIUM,PORCINE 5,000 UNITS/ML VIAL SQ SCH ×2 (08:32→21:00)
[2020-02-21] MEDS: COD LIVER OIL/ZINC OXIDE OINT 113 GM TUBE TP SCH ×2 (08:37→21:17)
--- NOTE | 2020-02-21 08:49 | NUR ---
SEE RESPIRATORY PROGRESS NOTE.
[2020-02-21] MEDS: VITAL AF 1.2 1,000 ML LIQUID GT PRN (08:55)
[2020-02-21] MEDS: HYDROGEN PEROXIDE 3% 118 ML BOTTLE TP SCH ×2 (09:40→19:22)
[2020-02-21 20:00] VITALS: BP 117/58
[2020-02-21] MEDS: ATORVASTATIN 20 MG TABLET GT SCH (21:13)
[2020-02-21] MEDS: MULTIVIT, IRON, MIN NO. 8, FA TABLET GT SCH (21:17)
[2020-02-22] MEDS: ALBUTEROL SULFATE 2.5 MG/3 ML NEBU NEB SCH ×4 (01:30→19:34)
[2020-02-22] MEDS: VITAL AF 1.2 1,000 ML LIQUID GT PRN ×2 (04:00→23:25)
[2020-02-22] MEDS: PANTOPRAZOLE ORAL SUSPENSION 40 MG SUSPDR.PKT GT SCH ×2 (05:36→17:15)
[2020-02-22 07:53] VITALS: BP 120/61
[2020-02-22] MEDS: LOSARTAN POTASSIUM 25 MG TABLET GT SCH (08:19)
[2020-02-22] MEDS: METOPROLOL TARTRATE 25 MG TABLET GT SCH ×2 (08:19→20:37)
[2020-02-22] MEDS: ACIDOPHILUS/BULGARICUS CHEW TAB GT SCH ×2 (08:19→20:37)
[2020-02-22] MEDS: ASPIRIN 81 MG TAB.CHEW GT SCH (08:19)
[2020-02-22] MEDS: NUTRISOURCE FIBER 4 GM PACKET GT SCH (08:20)
[2020-02-22] MEDS: HEPARIN SODIUM,PORCINE 5,000 UNITS/ML VIAL SQ SCH ×2 (08:20→20:37)
[2020-02-22] MEDS: COD LIVER OIL/ZINC OXIDE OINT 113 GM TUBE TP SCH ×2 (08:21→20:38)
[2020-02-22] MEDS: HYDROGEN PEROXIDE 3% 118 ML BOTTLE TP SCH ×2 (08:47→21:11)
[2020-02-22 20:00] VITALS: BP 111/60
[2020-02-22] MEDS: ATORVASTATIN 20 MG TABLET GT SCH (20:37)
[2020-02-23] MEDS: ALBUTEROL SULFATE 2.5 MG/3 ML NEBU NEB SCH ×4 (00:41→19:41)
[2020-02-23] MEDS: PANTOPRAZOLE ORAL SUSPENSION 40 MG SUSPDR.PKT GT SCH ×2 (05:08→17:35)
[2020-02-23 08:13] VITALS: BP 119/55
[2020-02-23] MEDS: LOSARTAN POTASSIUM 25 MG TABLET GT SCH (09:00)
[2020-02-23] MEDS: METOPROLOL TARTRATE 25 MG TABLET GT SCH ×2 (09:00→20:26)
[2020-02-23] MEDS: ACIDOPHILUS/BULGARICUS CHEW TAB GT SCH ×2 (09:30→20:24)
[2020-02-23] MEDS: ASPIRIN 81 MG TAB.CHEW GT SCH (09:30)
[2020-02-23] MEDS: NUTRISOURCE FIBER 4 GM PACKET GT SCH (09:30)
[2020-02-23] MEDS: HEPARIN SODIUM,PORCINE 5,000 UNITS/ML VIAL SQ SCH ×2 (09:31→20:25)
[2020-02-23] MEDS: HYDROGEN PEROXIDE 3% 118 ML BOTTLE TP SCH ×2 (09:35→20:53)
[2020-02-23] MEDS: COD LIVER OIL/ZINC OXIDE OINT 113 GM TUBE TP SCH ×2 (09:36→20:26)
[2020-02-23] MEDS: VITAL AF 1.2 1,000 ML LIQUID GT PRN (17:35)
[2020-02-23 20:00] VITALS: BP 145/66
[2020-02-23] MEDS: ATORVASTATIN 20 MG TABLET GT SCH (20:24)
[2020-02-23] MEDS: MULTIVIT, IRON, MIN NO. 8, FA TABLET GT SCH (20:26)
[2020-02-24] MEDS: ALBUTEROL SULFATE 2.5 MG/3 ML NEBU NEB SCH ×4 (01:27→19:41)
[2020-02-24] MEDS: PANTOPRAZOLE ORAL SUSPENSION 40 MG SUSPDR.PKT GT SCH ×2 (05:31→17:18)
[2020-02-24 07:52] VITALS: BP 111/58
[2020-02-24] MEDS: ASPIRIN 81 MG TAB.CHEW GT SCH (08:30)
[2020-02-24] MEDS: NUTRISOURCE FIBER 4 GM PACKET GT SCH (08:31)
[2020-02-24] MEDS: LOSARTAN POTASSIUM 25 MG TABLET GT SCH (08:31)
[2020-02-24] MEDS: ACIDOPHILUS/BULGARICUS CHEW TAB GT SCH ×2 (08:31→20:31)
[2020-02-24] MEDS: METOPROLOL TARTRATE 25 MG TABLET GT SCH ×2 (08:31→20:31)
[2020-02-24] MEDS: HEPARIN SODIUM,PORCINE 5,000 UNITS/ML VIAL SQ SCH ×2 (08:32→20:30)
[2020-02-24] MEDS: COD LIVER OIL/ZINC OXIDE OINT 113 GM TUBE TP SCH ×2 (08:33→20:31)
[2020-02-24] MEDS: HYDROGEN PEROXIDE 3% 118 ML BOTTLE TP SCH ×2 (08:47→21:28)
--- NOTE | 2020-02-24 12:30 | NUR ---
zoom provided to uday.
--- NOTE | 2020-02-24 14:14 | NUR ---
zoom provided to daughter.
[2020-02-24] MEDS: VITAL AF 1.2 1,000 ML LIQUID GT PRN (16:10)
[2020-02-24 20:22] VITALS: BP 134/60
[2020-02-24] MEDS: ATORVASTATIN 20 MG TABLET GT SCH (20:31)
[2020-02-25] MEDS: ALBUTEROL SULFATE 2.5 MG/3 ML NEBU NEB SCH ×4 (01:30→19:45)
[2020-02-25] MEDS: PANTOPRAZOLE ORAL SUSPENSION 40 MG SUSPDR.PKT GT SCH ×2 (05:13→17:08)
[2020-02-25 07:47] VITALS: BP 128/46
[2020-02-25] MEDS: HYDROGEN PEROXIDE 3% 118 ML BOTTLE TP SCH ×2 (08:08→21:47)
[2020-02-25] MEDS: ASPIRIN 81 MG TAB.CHEW GT SCH (08:15)
[2020-02-25] MEDS: ACIDOPHILUS/BULGARICUS CHEW TAB GT SCH ×2 (08:16→21:00)
[2020-02-25] MEDS: LOSARTAN POTASSIUM 25 MG TABLET GT SCH (08:16)
[2020-02-25] MEDS: METOPROLOL TARTRATE 25 MG TABLET GT SCH ×2 (08:17→21:00)
[2020-02-25] MEDS: NUTRISOURCE FIBER 4 GM PACKET GT SCH (08:17)
[2020-02-25] MEDS: COD LIVER OIL/ZINC OXIDE OINT 113 GM TUBE TP SCH ×2 (08:18→21:00)
[2020-02-25] MEDS: HEPARIN SODIUM,PORCINE 5,000 UNITS/ML VIAL SQ SCH ×2 (08:18→21:00)
[2020-02-25] MEDS: VITAL AF 1.2 1,000 ML LIQUID GT PRN (12:23)
[2020-02-25] MEDS: ATORVASTATIN 20 MG TABLET GT SCH (21:00)
[2020-02-25] MEDS: MULTIVIT, IRON, MIN NO. 8, FA TABLET GT SCH (21:00)
[2020-02-26] MEDS: ALBUTEROL SULFATE 2.5 MG/3 ML NEBU NEB SCH ×4 (01:30→19:30)
[2020-02-26] MEDS: PANTOPRAZOLE ORAL SUSPENSION 40 MG SUSPDR.PKT GT SCH ×2 (05:50→17:02)
[2020-02-26] MEDS: VITAL AF 1.2 1,000 ML LIQUID GT PRN ×2 (05:52→23:06)
[2020-02-26 07:30] VITALS: BP 126/51
[2020-02-26] MEDS: LOSARTAN POTASSIUM 25 MG TABLET GT SCH (08:33)
[2020-02-26] MEDS: METOPROLOL TARTRATE 25 MG TABLET GT SCH ×2 (08:34→20:30)
[2020-02-26] MEDS: ACIDOPHILUS/BULGARICUS CHEW TAB GT SCH ×2 (08:34→20:28)
[2020-02-26] MEDS: HYDROGEN PEROXIDE 3% 118 ML BOTTLE TP SCH ×2 (08:35→21:01)
[2020-02-26] MEDS: NUTRISOURCE FIBER 4 GM PACKET GT SCH (08:35)
[2020-02-26] MEDS: HEPARIN SODIUM,PORCINE 5,000 UNITS/ML VIAL SQ SCH ×2 (08:36→20:29)
[2020-02-26] MEDS: COD LIVER OIL/ZINC OXIDE OINT 113 GM TUBE TP SCH ×2 (08:36→20:30)
[2020-02-26] MEDS: ASPIRIN 81 MG TAB.CHEW GT SCH (08:41)
--- NOTE | 2020-02-26 16:34 | NUR ---
GUTIERREZ spoke with Elizabeth at Dr. Seth's office [phone] and scheduled patient's optometry appointment for 03/13/2020. GUTIERREZ informed patient's son Reji, daughter Marina, and [id number]-hq-kir Gin, via email, about the date of the optometry appointment.
[2020-02-26] MEDS: ATORVASTATIN 20 MG TABLET GT SCH (20:29)
[2020-02-26 20:44] VITALS: BP 117/58
[2020-02-27] MEDS: ALBUTEROL SULFATE 2.5 MG/3 ML NEBU NEB SCH ×4 (00:57→19:10)
[2020-02-27] MEDS: PANTOPRAZOLE ORAL SUSPENSION 40 MG SUSPDR.PKT GT SCH ×2 (06:12→17:10)
[2020-02-27 07:24] VITALS: BP 116/57
[2020-02-27] MEDS: HEPARIN SODIUM,PORCINE 5,000 UNITS/ML VIAL SQ SCH ×2 (08:55→20:35)
[2020-02-27] MEDS: ASPIRIN 81 MG TAB.CHEW GT SCH (08:56)
[2020-02-27] MEDS: LOSARTAN POTASSIUM 25 MG TABLET GT SCH (08:57)
[2020-02-27] MEDS: NUTRISOURCE FIBER 4 GM PACKET GT SCH (08:58)
[2020-02-27] MEDS: ACIDOPHILUS/BULGARICUS CHEW TAB GT SCH ×2 (08:58→20:29)
[2020-02-27] MEDS: METOPROLOL TARTRATE 25 MG TABLET GT SCH ×2 (08:58→20:31)
[2020-02-27] MEDS: COD LIVER OIL/ZINC OXIDE OINT 113 GM TUBE TP SCH ×2 (08:58→20:35)
[2020-02-27] MEDS: HYDROGEN PEROXIDE 3% 118 ML BOTTLE TP SCH ×2 (09:00→21:47)
--- NOTE | 2020-02-27 11:49 | NUR ---
SW notified patient's son Reji, daughter Marina, and [id number] Gin via email that the next IDT meeting for the patient is scheduled for 03/04/2020 at 11am. SW asked the family to let this SW know if either one of them wanted to participate in the meeting via speaker phone.
[2020-02-27] MEDS: VITAL AF 1.2 1,000 ML LIQUID GT PRN (17:57)
[2020-02-27 20:00] VITALS: BP 118/63
[2020-02-27] MEDS: ATORVASTATIN 20 MG TABLET GT SCH (20:30)
[2020-02-27] MEDS: MULTIVIT, IRON, MIN NO. 8, FA TABLET GT SCH (20:32)
[2020-02-28] MEDS: ALBUTEROL SULFATE 2.5 MG/3 ML NEBU NEB SCH ×4 (01:25→19:21)
[2020-02-28] MEDS: PANTOPRAZOLE ORAL SUSPENSION 40 MG SUSPDR.PKT GT SCH ×2 (05:50→17:20)
[2020-02-28] MEDS: HYDROGEN PEROXIDE 3% 118 ML BOTTLE TP SCH ×2 (07:35→20:37)
[2020-02-28 07:39] VITALS: BP 131/12
[2020-02-28] MEDS: ASPIRIN 81 MG TAB.CHEW GT SCH (08:37)
[2020-02-28] MEDS: NUTRISOURCE FIBER 4 GM PACKET GT SCH (08:38)
[2020-02-28] MEDS: ACIDOPHILUS/BULGARICUS CHEW TAB GT SCH ×2 (08:38→20:32)
[2020-02-28] MEDS: METOPROLOL TARTRATE 25 MG TABLET GT SCH ×2 (08:38→20:32)
[2020-02-28] MEDS: LOSARTAN POTASSIUM 25 MG TABLET GT SCH (08:38)
[2020-02-28] MEDS: HEPARIN SODIUM,PORCINE 5,000 UNITS/ML VIAL SQ SCH ×2 (08:39→20:35)
[2020-02-28] MEDS: COD LIVER OIL/ZINC OXIDE OINT 113 GM TUBE TP SCH ×2 (08:39→20:33)
[2020-02-28] MEDS: VITAL AF 1.2 1,000 ML LIQUID GT PRN (11:51)
--- NOTE | 2020-02-28 17:30 | NUR ---
SEEN BY DR. GUTIERREZ AND WITH NNO.
[2020-02-28 20:00] VITALS: BP 105/58
[2020-02-28] MEDS: ATORVASTATIN 20 MG TABLET GT SCH (20:32)
[2020-02-29] MEDS: ALBUTEROL SULFATE 2.5 MG/3 ML NEBU NEB SCH ×4 (01:58→20:13)
[2020-02-29] MEDS: PANTOPRAZOLE ORAL SUSPENSION 40 MG SUSPDR.PKT GT SCH ×2 (05:41→18:29)
[2020-02-29] MEDS: HYDROGEN PEROXIDE 3% 118 ML BOTTLE TP SCH ×2 (07:27→21:40)
[2020-02-29 07:41] VITALS: BP 117/64
[2020-02-29] MEDS: LOSARTAN POTASSIUM 25 MG TABLET GT SCH (08:40)
[2020-02-29] MEDS: ASPIRIN 81 MG TAB.CHEW GT SCH (08:40)
[2020-02-29] MEDS: ACIDOPHILUS/BULGARICUS CHEW TAB GT SCH ×2 (08:41→21:22)
[2020-02-29] MEDS: METOPROLOL TARTRATE 25 MG TABLET GT SCH ×2 (08:41→21:00)
[2020-02-29] MEDS: COD LIVER OIL/ZINC OXIDE OINT 113 GM TUBE TP SCH ×2 (08:41→21:24)
[2020-02-29] MEDS: HEPARIN SODIUM,PORCINE 5,000 UNITS/ML VIAL SQ SCH ×2 (08:41→21:34)
[2020-02-29] MEDS: NUTRISOURCE FIBER 4 GM PACKET GT SCH (08:41)
--- NOTE | 2020-02-29 10:29 | NUR ---
SEEN AND EXAMINED BY DR. GABRIEL Arana AND WITH NEW ORDER CARRIED OUT.
[2020-02-29] MEDS: VITAL AF 1.2 1,000 ML LIQUID GT PRN (12:21)
[2020-02-29 20:00] VITALS: BP 101/74
[2020-02-29] MEDS: ATORVASTATIN 20 MG TABLET GT SCH (21:22)
[2020-02-29] MEDS: MULTIVIT, IRON, MIN NO. 8, FA TABLET GT SCH (21:24)
[2020-03-01] MEDS: ALBUTEROL SULFATE 2.5 MG/3 ML NEBU NEB SCH ×4 (01:58→19:40)
[2020-03-01] MEDS: VITAL AF 1.2 1,000 ML LIQUID GT PRN (04:41)
[2020-03-01] MEDS: PANTOPRAZOLE ORAL SUSPENSION 40 MG SUSPDR.PKT GT SCH ×2 (05:24→17:56)
[2020-03-01] MEDS: HYDROGEN PEROXIDE 3% 118 ML BOTTLE TP SCH ×2 (07:35→21:15)
[2020-03-01 07:46] VITALS: BP 113/72
[2020-03-01] MEDS: LOSARTAN POTASSIUM 25 MG TABLET GT SCH (08:54)
[2020-03-01] MEDS: ASPIRIN 81 MG TAB.CHEW GT SCH (08:54)
[2020-03-01] MEDS: NUTRISOURCE FIBER 4 GM PACKET GT SCH (08:55)
[2020-03-01] MEDS: METOPROLOL TARTRATE 25 MG TABLET GT SCH ×2 (08:55→20:52)
[2020-03-01] MEDS: ACIDOPHILUS/BULGARICUS CHEW TAB GT SCH ×2 (08:55→20:52)
[2020-03-01] MEDS: COD LIVER OIL/ZINC OXIDE OINT 113 GM TUBE TP SCH ×2 (08:56→20:53)
[2020-03-01] MEDS: HEPARIN SODIUM,PORCINE 5,000 UNITS/ML VIAL SQ SCH ×2 (08:57→20:53)
[2020-03-01 20:00] VITALS: BP 127/53
[2020-03-01] MEDS: ATORVASTATIN 20 MG TABLET GT SCH (20:52)
[2020-03-02] MEDS: ALBUTEROL SULFATE 2.5 MG/3 ML NEBU NEB SCH ×4 (01:30→19:41)
[2020-03-02] MEDS: PANTOPRAZOLE ORAL SUSPENSION 40 MG SUSPDR.PKT GT SCH ×2 (05:40→17:18)
[2020-03-02 07:33] VITALS: BP 103/61
[2020-03-02] MEDS: HYDROGEN PEROXIDE 3% 118 ML BOTTLE TP SCH ×2 (08:17→21:12)
[2020-03-02] MEDS: HEPARIN SODIUM,PORCINE 5,000 UNITS/ML VIAL SQ SCH ×2 (08:21→20:46)
[2020-03-02] MEDS: COD LIVER OIL/ZINC OXIDE OINT 113 GM TUBE TP SCH ×2 (08:21→20:47)
[2020-03-02] MEDS: ACIDOPHILUS/BULGARICUS CHEW TAB GT SCH ×2 (08:43→20:43)
[2020-03-02] MEDS: METOPROLOL TARTRATE 25 MG TABLET GT SCH ×2 (08:43→20:52)
[2020-03-02] MEDS: LOSARTAN POTASSIUM 25 MG TABLET GT SCH (08:43)
[2020-03-02] MEDS: NUTRISOURCE FIBER 4 GM PACKET GT SCH (08:43)
[2020-03-02] MEDS: ASPIRIN 81 MG TAB.CHEW GT SCH (08:43)
[2020-03-02] MEDS: ATORVASTATIN 20 MG TABLET GT SCH (20:43)
[2020-03-02] MEDS: MULTIVIT, IRON, MIN NO. 8, FA TABLET GT SCH (20:47)
[2020-03-02 20:56] VITALS: BP 134/60
[2020-03-02] MEDS: VITAL AF 1.2 1,000 ML LIQUID GT PRN (22:20)
[2020-03-03] MEDS: ALBUTEROL SULFATE 2.5 MG/3 ML NEBU NEB SCH ×4 (01:30→19:40)
[2020-03-03] MEDS: PANTOPRAZOLE ORAL SUSPENSION 40 MG SUSPDR.PKT GT SCH ×2 (05:11→17:32)
[2020-03-03 07:44] VITALS: BP 120/56
[2020-03-03] MEDS: HYDROGEN PEROXIDE 3% 118 ML BOTTLE TP SCH ×2 (08:16→21:36)
[2020-03-03] MEDS: LOSARTAN POTASSIUM 25 MG TABLET GT SCH (08:38)
[2020-03-03] MEDS: ACIDOPHILUS/BULGARICUS CHEW TAB GT SCH ×2 (08:38→20:31)
[2020-03-03] MEDS: ASPIRIN 81 MG TAB.CHEW GT SCH (08:38)
[2020-03-03] MEDS: NUTRISOURCE FIBER 4 GM PACKET GT SCH (08:39)
[2020-03-03] MEDS: METOPROLOL TARTRATE 25 MG TABLET GT SCH ×2 (08:39→20:34)
[2020-03-03] MEDS: COD LIVER OIL/ZINC OXIDE OINT 113 GM TUBE TP SCH ×2 (08:40→20:31)
[2020-03-03] MEDS: HEPARIN SODIUM,PORCINE 5,000 UNITS/ML VIAL SQ SCH ×2 (08:40→20:25)
--- NOTE | 2020-03-03 17:00 | NUR ---
Provided video chat to pt. and his son and grand children with no problem noted, kept pt clean and comfortable signs of pain or discomfort noted, all needs attended.
[2020-03-03] MEDS: ATORVASTATIN 20 MG TABLET GT SCH (20:31)
[2020-03-03 20:45] VITALS: BP 126/69
[2020-03-04] MEDS: ALBUTEROL SULFATE 2.5 MG/3 ML NEBU NEB SCH ×4 (01:30→19:10)
[2020-03-04] MEDS: PANTOPRAZOLE ORAL SUSPENSION 40 MG SUSPDR.PKT GT SCH ×2 (05:30→17:18)
[2020-03-04] MEDS: HYDROGEN PEROXIDE 3% 118 ML BOTTLE TP SCH ×2 (07:17→21:39)
[2020-03-04 07:48] VITALS: BP 103/56
[2020-03-04] MEDS: ASPIRIN 81 MG TAB.CHEW GT SCH (08:54)
[2020-03-04] MEDS: LOSARTAN POTASSIUM 25 MG TABLET GT SCH (08:59)
[2020-03-04] MEDS: METOPROLOL TARTRATE 25 MG TABLET GT SCH ×2 (09:00→20:34)
[2020-03-04] MEDS: ACIDOPHILUS/BULGARICUS CHEW TAB GT SCH ×2 (09:00→20:34)
[2020-03-04] MEDS: NUTRISOURCE FIBER 4 GM PACKET GT SCH (09:00)
[2020-03-04] MEDS: HEPARIN SODIUM,PORCINE 5,000 UNITS/ML VIAL SQ SCH ×2 (09:04→20:32)
[2020-03-04] MEDS: COD LIVER OIL/ZINC OXIDE OINT 113 GM TUBE TP SCH ×2 (09:04→20:35)
[2020-03-04] MEDS: VITAL AF 1.2 1,000 ML LIQUID GT PRN (14:18)
--- NOTE | 2020-03-04 16:23 | NUR ---
INTERDISCIPLINARY PLAN OF CARE CONFERENCE was held today. Patient's family was not available to participate in the meeting. Dr. Leary and the Interdisciplinary Team reviewed the current plan of care in detail. RN reported on patient's medical condition, findings of recent labs, and adjustments in medications. See RN IDT conference notes. No major changes in medical condition were reported by nursing or by other disciplines. See all other disciplines IDT notes and physician's progress notes for additional details.
[2020-03-04 20:23] VITALS: BP 130/60
[2020-03-04] MEDS: ATORVASTATIN 20 MG TABLET GT SCH (20:34)
[2020-03-04] MEDS: MULTIVIT, IRON, MIN NO. 8, FA TABLET GT SCH (20:35)
[2020-03-05] MEDS: ALBUTEROL SULFATE 2.5 MG/3 ML NEBU NEB SCH ×4 (01:56→19:05)
[2020-03-05] MEDS: PANTOPRAZOLE ORAL SUSPENSION 40 MG SUSPDR.PKT GT SCH ×2 (06:27→18:06)
[2020-03-05] MEDS: VITAL AF 1.2 1,000 ML LIQUID GT PRN (07:20)
[2020-03-05 07:29] VITALS: BP 120/64
[2020-03-05] MEDS: HYDROGEN PEROXIDE 3% 118 ML BOTTLE TP SCH ×2 (08:25→21:00)
[2020-03-05] MEDS: HEPARIN SODIUM,PORCINE 5,000 UNITS/ML VIAL SQ SCH ×2 (08:41→21:00)
[2020-03-05] MEDS: METOPROLOL TARTRATE 25 MG TABLET GT SCH ×2 (09:00→21:56)
[2020-03-05] MEDS: ASPIRIN 81 MG TAB.CHEW GT SCH (09:03)
[2020-03-05] MEDS: ACIDOPHILUS/BULGARICUS CHEW TAB GT SCH ×2 (09:03→21:52)
[2020-03-05] MEDS: LOSARTAN POTASSIUM 25 MG TABLET GT SCH (09:03)
[2020-03-05] MEDS: NUTRISOURCE FIBER 4 GM PACKET GT SCH (09:05)
[2020-03-05] MEDS: COD LIVER OIL/ZINC OXIDE OINT 113 GM TUBE TP SCH ×2 (09:06→21:53)
[2020-03-05] MEDS: ATORVASTATIN 20 MG TABLET GT SCH (21:53)
[2020-03-05 22:19] VITALS: BP 112/51
[2020-03-06] MEDS: ALBUTEROL SULFATE 2.5 MG/3 ML NEBU NEB SCH ×4 (00:37→19:21)
[2020-03-06] MEDS: VITAL AF 1.2 1,000 ML LIQUID GT PRN (03:36)
[2020-03-06] MEDS: PANTOPRAZOLE ORAL SUSPENSION 40 MG SUSPDR.PKT GT SCH ×2 (05:15→18:02)
[2020-03-06 07:25] VITALS: BP 120/63
[2020-03-06] MEDS: ASPIRIN 81 MG TAB.CHEW GT SCH (08:57)
[2020-03-06] MEDS: HEPARIN SODIUM,PORCINE 5,000 UNITS/ML VIAL SQ SCH ×2 (08:58→21:20)
[2020-03-06] MEDS: NUTRISOURCE FIBER 4 GM PACKET GT SCH (09:00)
[2020-03-06] MEDS: ACIDOPHILUS/BULGARICUS CHEW TAB GT SCH ×2 (09:02→21:15)
[2020-03-06] MEDS: LOSARTAN POTASSIUM 25 MG TABLET GT SCH (09:02)
[2020-03-06] MEDS: METOPROLOL TARTRATE 25 MG TABLET GT SCH ×2 (09:08→21:00)
[2020-03-06] MEDS: COD LIVER OIL/ZINC OXIDE OINT 113 GM TUBE TP SCH ×2 (09:09→21:16)
[2020-03-06] MEDS: HYDROGEN PEROXIDE 3% 118 ML BOTTLE TP SCH ×2 (09:26→20:48)
[2020-03-06] MEDS: ATORVASTATIN 20 MG TABLET GT SCH (21:15)
[2020-03-06] MEDS: MULTIVIT, IRON, MIN NO. 8, FA TABLET GT SCH (21:16)
[2020-03-06 22:45] VITALS: BP 111/56
[2020-03-07] MEDS: ALBUTEROL SULFATE 2.5 MG/3 ML NEBU NEB SCH ×4 (00:43→19:35)
[2020-03-07] MEDS: VITAL AF 1.2 1,000 ML LIQUID GT PRN (02:36)
[2020-03-07] MEDS: PANTOPRAZOLE ORAL SUSPENSION 40 MG SUSPDR.PKT GT SCH ×2 (05:57→17:55)
[2020-03-07 07:30] VITALS: BP 117/64
[2020-03-07] MEDS: LOSARTAN POTASSIUM 25 MG TABLET GT SCH (08:01)
[2020-03-07] MEDS: ASPIRIN 81 MG TAB.CHEW GT SCH (08:01)
[2020-03-07] MEDS: ACIDOPHILUS/BULGARICUS CHEW TAB GT SCH ×2 (08:02→20:24)
[2020-03-07] MEDS: METOPROLOL TARTRATE 25 MG TABLET GT SCH ×2 (08:02→20:31)
[2020-03-07] MEDS: NUTRISOURCE FIBER 4 GM PACKET GT SCH (08:03)
[2020-03-07] MEDS: COD LIVER OIL/ZINC OXIDE OINT 113 GM TUBE TP SCH ×2 (08:05→20:31)
[2020-03-07] MEDS: HEPARIN SODIUM,PORCINE 5,000 UNITS/ML VIAL SQ SCH ×2 (08:05→20:24)
[2020-03-07] MEDS: HYDROGEN PEROXIDE 3% 118 ML BOTTLE TP SCH ×2 (08:55→21:18)
[2020-03-07] MEDS: ATORVASTATIN 20 MG TABLET GT SCH (20:24)
[2020-03-07 22:27] VITALS: BP 116/58
[2020-03-08] MEDS: ALBUTEROL SULFATE 2.5 MG/3 ML NEBU NEB SCH ×4 (00:49→20:00)
[2020-03-08] MEDS: VITAL AF 1.2 1,000 ML LIQUID GT PRN ×2 (02:29→23:12)
[2020-03-08] MEDS: PANTOPRAZOLE ORAL SUSPENSION 40 MG SUSPDR.PKT GT SCH ×2 (05:08→17:46)
[2020-03-08 07:49] VITALS: BP 110/62
[2020-03-08] MEDS: HYDROGEN PEROXIDE 3% 118 ML BOTTLE TP SCH ×2 (09:00→20:00)
[2020-03-08] MEDS: COD LIVER OIL/ZINC OXIDE OINT 113 GM TUBE TP SCH ×2 (09:00→20:16)
[2020-03-08] MEDS: METOPROLOL TARTRATE 25 MG TABLET GT SCH ×2 (09:00→20:15)
[2020-03-08] MEDS: ACIDOPHILUS/BULGARICUS CHEW TAB GT SCH ×2 (09:09→20:13)
[2020-03-08] MEDS: ASPIRIN 81 MG TAB.CHEW GT SCH (09:11)
[2020-03-08] MEDS: LOSARTAN POTASSIUM 25 MG TABLET GT SCH (09:12)
[2020-03-08] MEDS: HEPARIN SODIUM,PORCINE 5,000 UNITS/ML VIAL SQ SCH ×2 (09:17→20:23)
[2020-03-08] MEDS: NUTRISOURCE FIBER 4 GM PACKET GT SCH (09:20)
--- NOTE | 2020-03-08 18:07 | NUR ---
lopressor dose held as the bp is 110 systoly. will given report to continue to monuitor the vital signs
[2020-03-08] MEDS: ATORVASTATIN 20 MG TABLET GT SCH (20:15)
[2020-03-08] MEDS: MULTIVIT, IRON, MIN NO. 8, FA TABLET GT SCH (20:16)
[2020-03-08 22:39] VITALS: BP 110/56
[2020-03-09] MEDS: ALBUTEROL SULFATE 2.5 MG/3 ML NEBU NEB SCH ×4 (01:30→19:40)
[2020-03-09] MEDS: PANTOPRAZOLE ORAL SUSPENSION 40 MG SUSPDR.PKT GT SCH ×2 (05:16→17:25)
[2020-03-09 07:42] VITALS: BP 110/64
[2020-03-09] MEDS: ASPIRIN 81 MG TAB.CHEW GT SCH (09:00)
[2020-03-09] MEDS: LOSARTAN POTASSIUM 25 MG TABLET GT SCH (09:00)
[2020-03-09] MEDS: ACIDOPHILUS/BULGARICUS CHEW TAB GT SCH ×2 (09:00→20:20)
[2020-03-09] MEDS: COD LIVER OIL/ZINC OXIDE OINT 113 GM TUBE TP SCH ×2 (09:01→20:25)
[2020-03-09] MEDS: METOPROLOL TARTRATE 25 MG TABLET GT SCH ×2 (09:01→20:20)
[2020-03-09] MEDS: NUTRISOURCE FIBER 4 GM PACKET GT SCH (09:01)
[2020-03-09] MEDS: HEPARIN SODIUM,PORCINE 5,000 UNITS/ML VIAL SQ SCH ×2 (09:04→20:25)
[2020-03-09] MEDS: HYDROGEN PEROXIDE 3% 118 ML BOTTLE TP SCH ×2 (10:10→21:24)
--- NOTE | 2020-03-09 19:49 | NUR ---
Patient had zoom with his son/Family, patient is in no distress.
[2020-03-09] MEDS: ATORVASTATIN 20 MG TABLET GT SCH (20:20)
[2020-03-09] MEDS: VITAL AF 1.2 1,000 ML LIQUID GT PRN (20:30)
[2020-03-09 22:41] VITALS: BP 134/69
[2020-03-09 22:55] VITALS: BP 112/58
[2020-03-10] MEDS: ALBUTEROL SULFATE 2.5 MG/3 ML NEBU NEB SCH ×4 (01:30→19:40)
[2020-03-10] MEDS: PANTOPRAZOLE ORAL SUSPENSION 40 MG SUSPDR.PKT GT SCH ×2 (06:05→17:11)
[2020-03-10 07:45] VITALS: BP 136/56
[2020-03-10] MEDS: ASPIRIN 81 MG TAB.CHEW GT SCH (08:16)
[2020-03-10] MEDS: LOSARTAN POTASSIUM 25 MG TABLET GT SCH (08:17)
[2020-03-10] MEDS: ACIDOPHILUS/BULGARICUS CHEW TAB GT SCH ×2 (08:18→20:25)
[2020-03-10] MEDS: METOPROLOL TARTRATE 25 MG TABLET GT SCH ×2 (08:19→20:25)
[2020-03-10] MEDS: COD LIVER OIL/ZINC OXIDE OINT 113 GM TUBE TP SCH ×2 (08:20→20:28)
[2020-03-10] MEDS: NUTRISOURCE FIBER 4 GM PACKET GT SCH (08:20)
[2020-03-10] MEDS: HEPARIN SODIUM,PORCINE 5,000 UNITS/ML VIAL SQ SCH ×2 (08:20→21:59)
[2020-03-10] MEDS: HYDROGEN PEROXIDE 3% 118 ML BOTTLE TP SCH ×2 (09:17→21:40)
[2020-03-10] MEDS: VITAL AF 1.2 1,000 ML LIQUID GT PRN (17:11)
--- NOTE | 2020-03-10 19:01 | NUR ---
VIDEO ZOOM DONE WITH PT'S SON ROSALINDA AND HE WAS A LITTLE CONCERN BECAUSE PT. WAS SLEEPY AND WITH HIS TONGUE A LITTLE OUT AND NURSE ASKED PT. TO OPEN HIS MOUTH AND WHEN SHE TOUCHED HIS LIPS HE OPENED HIS MOUTH AND CLOSED EVENLY AND WAS ABLE TO OPEN AND CLOSE HIS MOUTH AND NO DROOLING NOTED AND NO ASYMMETRY NOTED ON HIS FACE. PER OTHER NURSES THERESA AND KYLIE PT. SLEEPS AT TIMES WITH HIS TONGUE OUT A LITTLE BIT.WILL CONT. TO MONITOR AND WILL BE ENDORSED TO NOC SHIFT.
[2020-03-10] MEDS: ATORVASTATIN 20 MG TABLET GT SCH (20:25)
[2020-03-10] MEDS: MULTIVIT, IRON, MIN NO. 8, FA TABLET GT SCH (20:28)
[2020-03-10 20:38] VITALS: BP 137/60
[2020-03-11] MEDS: ALBUTEROL SULFATE 2.5 MG/3 ML NEBU NEB SCH ×4 (01:25→19:39)
[2020-03-11] MEDS: PANTOPRAZOLE ORAL SUSPENSION 40 MG SUSPDR.PKT GT SCH ×2 (06:17→18:12)
[2020-03-11 07:34] VITALS: BP 91/50
[2020-03-11] MEDS: HYDROGEN PEROXIDE 3% 118 ML BOTTLE TP SCH ×2 (08:17→21:10)
[2020-03-11] MEDS: METOPROLOL TARTRATE 25 MG TABLET GT SCH ×2 (09:00→20:01)
[2020-03-11] MEDS: LOSARTAN POTASSIUM 25 MG TABLET GT SCH (09:00)
[2020-03-11] MEDS: ASPIRIN 81 MG TAB.CHEW GT SCH (09:05)
[2020-03-11] MEDS: ACIDOPHILUS/BULGARICUS CHEW TAB GT SCH ×2 (09:06→20:00)
[2020-03-11] MEDS: COD LIVER OIL/ZINC OXIDE OINT 113 GM TUBE TP SCH ×2 (09:07→20:03)
[2020-03-11] MEDS: NUTRISOURCE FIBER 4 GM PACKET GT SCH (09:07)
[2020-03-11] MEDS: HEPARIN SODIUM,PORCINE 5,000 UNITS/ML VIAL SQ SCH ×2 (09:09→20:03)
[2020-03-11] MEDS: VITAL AF 1.2 1,000 ML LIQUID GT PRN (12:42)
--- NOTE | 2020-03-11 13:56 | NUR ---
Pt continue on close observation ,no episodes of twitching,or episode of stick his tongue out,Left message to Dr Sanchez,to request a neurological consult.
--- NOTE | 2020-03-11 19:00 | NUR ---
Pt's son Reji notified Covid 19 test,was done today,Per son is okay to give Flu shot to her father. Addendum: 03/11/20 at 2014 by ZHAO SALAS RN no Covid 19 test done today
[2020-03-11 20:00] VITALS: BP 115/54
[2020-03-11] MEDS: ATORVASTATIN 20 MG TABLET GT SCH (20:00)
[2020-03-12] MEDS: ALBUTEROL SULFATE 2.5 MG/3 ML NEBU NEB SCH ×4 (00:55→19:30)
[2020-03-12 06:12] LABS: BASOPHILS % (AUTO) 0.9 % (0.0-2.0); EOSINOPHILS # (AUTO) 0.5 K/uL (0.0-0.7); EOSINOPHILS % (AUTO) 10.1 % (0.0-7.0); HEMATOCRIT 37.5 % (36.7-47.1); LYMPHOCYTES # (AUTO) 1.7 K/uL (20.0-40.0); LYMPHOCYTES % (AUTO) 34.4 % (20.5-51.5); MEAN CORPUSCULAR HEMOGLOBIN 33.1 uug (23.8-33.4); MEAN CORPUSCULAR HGB CONC 35 g/dL (32.5-36.3); MEAN CORPUSCULAR VOLUME 95.3 fL (73.0-96.2); MONOCYTES # (AUTO) 0.4 K/uL (2.0-10.0); MONOCYTES % (AUTO) 8.3 % (0.0-11.0); NEUTROPHILS # (AUTO) 2.3 K/uL (1.8-8.9); NEUTROPHILS % (AUTO) 46.3 % (38.5-71.5); PLATELET COUNT (AUTO) 266 K/uL (152-348); RED BLOOD CELL COUNT(AUTO) 3.94 MIL/uL (4.06-5.63)
[2020-03-12] MEDS: PANTOPRAZOLE ORAL SUSPENSION 40 MG SUSPDR.PKT GT SCH ×2 (06:14→17:19)
[2020-03-12 06:47] LABS: CREATININE 0.7 mg/dL (0.6-1.3); MAGNESIUM 2.1 mg/dL (1.8-2.4); PHOSPHOROUS 3.5 mg/dL (2.5-4.9); POTASSIUM 4.1 mmol/L (3.5-5.1)
[2020-03-12 07:37] VITALS: BP 135/58
[2020-03-12] MEDS: ASPIRIN 81 MG TAB.CHEW GT SCH (08:35)
[2020-03-12] MEDS: ACIDOPHILUS/BULGARICUS CHEW TAB GT SCH ×2 (08:37→20:02)
[2020-03-12] MEDS: LOSARTAN POTASSIUM 25 MG TABLET GT SCH (08:37)
[2020-03-12] MEDS: METOPROLOL TARTRATE 25 MG TABLET GT SCH ×2 (08:39→20:03)
[2020-03-12] MEDS: COD LIVER OIL/ZINC OXIDE OINT 113 GM TUBE TP SCH ×2 (08:40→20:12)
[2020-03-12] MEDS: NUTRISOURCE FIBER 4 GM PACKET GT SCH (08:40)
[2020-03-12] MEDS: HEPARIN SODIUM,PORCINE 5,000 UNITS/ML VIAL SQ SCH ×2 (08:42→20:07)
[2020-03-12] MEDS: HYDROGEN PEROXIDE 3% 118 ML BOTTLE TP SCH ×2 (08:43→21:00)
--- NOTE | 2020-03-12 13:00 | NUR ---
Notified Dr Lynch regarding pt condition with new orders noted and carried out.
[2020-03-12] MEDS: VITAL AF 1.2 1,000 ML LIQUID GT PRN (13:49)
--- NOTE | 2020-03-12 16:30 | NUR ---
EEG done,Dr Lynch was informed.
[2020-03-12] MEDS: ATORVASTATIN 20 MG TABLET GT SCH (20:02)
[2020-03-12] MEDS: MULTIVIT, IRON, MIN NO. 8, FA TABLET GT SCH (20:05)
[2020-03-12 20:06] VITALS: BP 123/62
[2020-03-13] MEDS: ALBUTEROL SULFATE 2.5 MG/3 ML NEBU NEB SCH ×4 (00:40→20:05)
[2020-03-13] MEDS: PANTOPRAZOLE ORAL SUSPENSION 40 MG SUSPDR.PKT GT SCH ×2 (06:14→17:18)
[2020-03-13] MEDS: VITAL AF 1.2 1,000 ML LIQUID GT PRN (06:58)
[2020-03-13] MEDS: HYDROGEN PEROXIDE 3% 118 ML BOTTLE TP SCH ×2 (07:22→20:05)
[2020-03-13 07:43] VITALS: BP 117/69
[2020-03-13] MEDS: ASPIRIN 81 MG TAB.CHEW GT SCH (08:04)
[2020-03-13] MEDS: ACIDOPHILUS/BULGARICUS CHEW TAB GT SCH ×2 (08:05→20:17)
[2020-03-13] MEDS: METOPROLOL TARTRATE 25 MG TABLET GT SCH ×2 (08:05→20:18)
[2020-03-13] MEDS: LOSARTAN POTASSIUM 25 MG TABLET GT SCH (08:05)
[2020-03-13] MEDS: NUTRISOURCE FIBER 4 GM PACKET GT SCH (08:06)
[2020-03-13] MEDS: COD LIVER OIL/ZINC OXIDE OINT 113 GM TUBE TP SCH ×2 (08:14→20:18)
[2020-03-13] MEDS: HEPARIN SODIUM,PORCINE 5,000 UNITS/ML VIAL SQ SCH ×2 (08:14→20:23)
--- NOTE | 2020-03-13 19:26 | NUR ---
NEW ORDER OBTAINED FROM ENOCH ADRIANA P.AKade FOR FLU VACCINE.
[2020-03-13 20:00] VITALS: BP 128/56
[2020-03-13] MEDS: ATORVASTATIN 20 MG TABLET GT SCH (20:18)
[2020-03-14] MEDS: VITAL AF 1.2 1,000 ML LIQUID GT PRN ×2 (01:00→21:55)
[2020-03-14] MEDS: ALBUTEROL SULFATE 2.5 MG/3 ML NEBU NEB SCH ×4 (01:31→19:27)
[2020-03-14] MEDS: ACETAMINOPHEN 650 MG/20 ML UDC- SA PATIENTS-PAIN ONLY GT PRN (03:00)
[2020-03-14] MEDS: PANTOPRAZOLE ORAL SUSPENSION 40 MG SUSPDR.PKT GT SCH ×2 (05:21→17:16)
[2020-03-14 07:42] VITALS: BP 117/74
[2020-03-14] MEDS: ACIDOPHILUS/BULGARICUS CHEW TAB GT SCH ×2 (08:06→20:24)
[2020-03-14] MEDS: ASPIRIN 81 MG TAB.CHEW GT SCH (08:06)
[2020-03-14] MEDS: LOSARTAN POTASSIUM 25 MG TABLET GT SCH (08:06)
[2020-03-14] MEDS: METOPROLOL TARTRATE 25 MG TABLET GT SCH ×2 (08:07→20:24)
[2020-03-14] MEDS: NUTRISOURCE FIBER 4 GM PACKET GT SCH (08:11)
[2020-03-14] MEDS: HEPARIN SODIUM,PORCINE 5,000 UNITS/ML VIAL SQ SCH ×2 (08:12→20:23)
[2020-03-14] MEDS: HYDROGEN PEROXIDE 3% 118 ML BOTTLE TP SCH ×2 (08:12→21:15)
[2020-03-14] MEDS: COD LIVER OIL/ZINC OXIDE OINT 113 GM TUBE TP SCH ×2 (08:12→20:23)
--- NOTE | 2020-03-14 15:27 | NUR ---
Patient seen by Dr. Seth on 03/13/2020 for his routine annual eye exam. Please see optometry notes in patient's chart for details.
--- NOTE | 2020-03-14 18:00 | NUR ---
SEEN BY GABRIEL Arana AND WITH
--- NOTE | 2020-03-14 18:54 | NUR ---
NO A/R TO FLU VACCINE ,AFEBRILE.
[2020-03-14 20:10] VITALS: BP 121/59
[2020-03-14] MEDS: MULTIVIT, IRON, MIN NO. 8, FA TABLET GT SCH (20:18)
[2020-03-14] MEDS: ATORVASTATIN 20 MG TABLET GT SCH (20:24)
--- NOTE | 2020-03-14 22:51 | NUR ---
Afebrile, no adverse reactions noted from the flu vaccine.
[2020-03-15] MEDS: ALBUTEROL SULFATE 2.5 MG/3 ML NEBU NEB SCH ×4 (01:00→19:11)
[2020-03-15] MEDS: PANTOPRAZOLE ORAL SUSPENSION 40 MG SUSPDR.PKT GT SCH ×2 (05:01→17:13)
[2020-03-15 07:36] VITALS: BP 110/60
[2020-03-15] MEDS: HYDROGEN PEROXIDE 3% 118 ML BOTTLE TP SCH ×2 (07:36→19:11)
[2020-03-15] MEDS: ACIDOPHILUS/BULGARICUS CHEW TAB GT SCH ×2 (08:04→20:09)
[2020-03-15] MEDS: ASPIRIN 81 MG TAB.CHEW GT SCH (08:04)
[2020-03-15] MEDS: LOSARTAN POTASSIUM 25 MG TABLET GT SCH (08:04)
[2020-03-15] MEDS: METOPROLOL TARTRATE 25 MG TABLET GT SCH ×2 (08:09→20:09)
[2020-03-15] MEDS: NUTRISOURCE FIBER 4 GM PACKET GT SCH (08:09)
[2020-03-15] MEDS: HEPARIN SODIUM,PORCINE 5,000 UNITS/ML VIAL SQ SCH ×2 (08:13→21:00)
[2020-03-15] MEDS: COD LIVER OIL/ZINC OXIDE OINT 113 GM TUBE TP SCH ×2 (08:13→20:09)
[2020-03-15] MEDS: VITAL AF 1.2 1,000 ML LIQUID GT PRN (16:23)
--- NOTE | 2020-03-15 18:18 | NUR ---
NO A/R TO FLU VACCINE,AFEBRILE.
[2020-03-15 20:03] VITALS: BP 116/77
[2020-03-15] MEDS: ATORVASTATIN 20 MG TABLET GT SCH (20:09)
--- NOTE | 2020-03-15 21:51 | NUR ---
Afebrile, no adverse reactions from flu vaccine, no redness on injection site.
[2020-03-16] MEDS: ALBUTEROL SULFATE 2.5 MG/3 ML NEBU NEB SCH ×4 (01:19→19:30)
[2020-03-16] MEDS: PANTOPRAZOLE ORAL SUSPENSION 40 MG SUSPDR.PKT GT SCH ×2 (05:35→18:53)
[2020-03-16 07:35] VITALS: BP 130/55
[2020-03-16] MEDS: HYDROGEN PEROXIDE 3% 118 ML BOTTLE TP SCH ×2 (07:53→21:09)
[2020-03-16] MEDS: LOSARTAN POTASSIUM 25 MG TABLET GT SCH (08:32)
[2020-03-16] MEDS: ASPIRIN 81 MG TAB.CHEW GT SCH (08:32)
[2020-03-16] MEDS: ACIDOPHILUS/BULGARICUS CHEW TAB GT SCH ×2 (08:32→20:34)
[2020-03-16] MEDS: NUTRISOURCE FIBER 4 GM PACKET GT SCH (08:33)
[2020-03-16] MEDS: METOPROLOL TARTRATE 25 MG TABLET GT SCH ×2 (08:33→20:34)
[2020-03-16] MEDS: COD LIVER OIL/ZINC OXIDE OINT 113 GM TUBE TP SCH ×2 (08:34→20:36)
[2020-03-16] MEDS: HEPARIN SODIUM,PORCINE 5,000 UNITS/ML VIAL SQ SCH ×2 (08:34→21:00)
--- NOTE | 2020-03-16 13:56 | NUR ---
NO A/R TO FLU VACCINE ,AFEBRILE.
[2020-03-16 20:13] VITALS: BP 109/66
[2020-03-16] MEDS: ATORVASTATIN 20 MG TABLET GT SCH (20:34)
[2020-03-16] MEDS: MULTIVIT, IRON, MIN NO. 8, FA TABLET GT SCH (20:36)
[2020-03-17] MEDS: ALBUTEROL SULFATE 2.5 MG/3 ML NEBU NEB SCH ×4 (00:50→19:50)
[2020-03-17] MEDS: PANTOPRAZOLE ORAL SUSPENSION 40 MG SUSPDR.PKT GT SCH ×2 (06:19→17:38)
--- NOTE | 2020-03-17 06:58 | NUR ---
No A/R to flu vaccine, afebrile.
[2020-03-17 07:35] VITALS: BP 137/62
[2020-03-17] MEDS: METOPROLOL TARTRATE 25 MG TABLET GT SCH ×2 (09:00→20:40)
[2020-03-17] MEDS: ASPIRIN 81 MG TAB.CHEW GT SCH (09:07)
[2020-03-17] MEDS: ACIDOPHILUS/BULGARICUS CHEW TAB GT SCH ×2 (09:08→20:38)
[2020-03-17] MEDS: NUTRISOURCE FIBER 4 GM PACKET GT SCH (09:08)
[2020-03-17] MEDS: LOSARTAN POTASSIUM 25 MG TABLET GT SCH (09:08)
[2020-03-17] MEDS: COD LIVER OIL/ZINC OXIDE OINT 113 GM TUBE TP SCH ×2 (09:09→20:40)
[2020-03-17] MEDS: HEPARIN SODIUM,PORCINE 5,000 UNITS/ML VIAL SQ SCH ×2 (09:09→20:38)
[2020-03-17] MEDS: HYDROGEN PEROXIDE 3% 118 ML BOTTLE TP SCH ×2 (09:46→21:40)
--- NOTE | 2020-03-17 13:30 | NUR ---
SEEN BY ENOCH Reyes AND WITH NNO.
[2020-03-17 20:31] VITALS: BP 124/91
[2020-03-17] MEDS: ATORVASTATIN 20 MG TABLET GT SCH (20:39)
[2020-03-18] MEDS: ALBUTEROL SULFATE 2.5 MG/3 ML NEBU NEB SCH ×4 (01:31→19:40)
[2020-03-18] MEDS: PANTOPRAZOLE ORAL SUSPENSION 40 MG SUSPDR.PKT GT SCH ×2 (05:08→17:47)
[2020-03-18 07:42] VITALS: BP 135/49
[2020-03-18] MEDS: ACIDOPHILUS/BULGARICUS CHEW TAB GT SCH ×2 (08:13→21:14)
[2020-03-18] MEDS: LOSARTAN POTASSIUM 25 MG TABLET GT SCH (08:13)
[2020-03-18] MEDS: ASPIRIN 81 MG TAB.CHEW GT SCH (08:13)
[2020-03-18] MEDS: HYDROGEN PEROXIDE 3% 118 ML BOTTLE TP SCH ×2 (08:14→21:39)
[2020-03-18] MEDS: NUTRISOURCE FIBER 4 GM PACKET GT SCH (08:14)
[2020-03-18] MEDS: METOPROLOL TARTRATE 25 MG TABLET GT SCH ×2 (08:14→21:15)
[2020-03-18] MEDS: HEPARIN SODIUM,PORCINE 5,000 UNITS/ML VIAL SQ SCH ×2 (08:15→21:18)
[2020-03-18] MEDS: COD LIVER OIL/ZINC OXIDE OINT 113 GM TUBE TP SCH ×2 (08:15→21:15)
--- NOTE | 2020-03-18 16:02 | NUR ---
Covid19 test will be done today,daughter notified.
[2020-03-18 20:27] VITALS: BP 128/56
[2020-03-18] MEDS: ATORVASTATIN 20 MG TABLET GT SCH (21:14)
[2020-03-18] MEDS: MULTIVIT, IRON, MIN NO. 8, FA TABLET GT SCH (21:15)
[2020-03-19] MEDS: ALBUTEROL SULFATE 2.5 MG/3 ML NEBU NEB SCH ×4 (01:30→19:25)
[2020-03-19] MEDS: PANTOPRAZOLE ORAL SUSPENSION 40 MG SUSPDR.PKT GT SCH ×2 (05:07→18:48)
[2020-03-19] MEDS: HYDROGEN PEROXIDE 3% 118 ML BOTTLE TP SCH ×2 (07:21→21:09)
[2020-03-19 07:50] VITALS: BP 132/57
[2020-03-19] MEDS: METOPROLOL TARTRATE 25 MG TABLET GT SCH ×2 (09:00→20:49)
[2020-03-19] MEDS: LOSARTAN POTASSIUM 25 MG TABLET GT SCH (09:58)
[2020-03-19] MEDS: ACIDOPHILUS/BULGARICUS CHEW TAB GT SCH ×2 (09:58→20:48)
[2020-03-19] MEDS: ASPIRIN 81 MG TAB.CHEW GT SCH (09:58)
[2020-03-19] MEDS: NUTRISOURCE FIBER 4 GM PACKET GT SCH (09:59)
[2020-03-19] MEDS: COD LIVER OIL/ZINC OXIDE OINT 113 GM TUBE TP SCH ×2 (09:59→20:51)
[2020-03-19] MEDS: HEPARIN SODIUM,PORCINE 5,000 UNITS/ML VIAL SQ SCH ×2 (10:04→20:46)
--- NOTE | 2020-03-19 16:30 | NUR ---
Seen and examined by Dr Sanchez with new orders noted.
--- NOTE | 2020-03-19 17:30 | NUR ---
Seen and examined by Dr Leary ,with new orders noted. Addendum: 03/19/20 at 2021 by ZHAO SALAS RN no new orders.
[2020-03-19 20:13] VITALS: BP 102/50
--- NOTE | 2020-03-19 20:19 | NUR ---
Louis from lab called re: COVID-19 test result which he said is negative.
[2020-03-19] MEDS: ATORVASTATIN 20 MG TABLET GT SCH (20:49)
[2020-03-20] MEDS: ALBUTEROL SULFATE 2.5 MG/3 ML NEBU NEB SCH ×4 (00:57→19:25)
[2020-03-20] MEDS: PANTOPRAZOLE ORAL SUSPENSION 40 MG SUSPDR.PKT GT SCH ×2 (05:40→17:27)
[2020-03-20 07:12] LABS: CREATININE 0.7 mg/dL (0.6-1.3); MAGNESIUM 2.3 mg/dL (1.8-2.4); PHOSPHOROUS 3.6 mg/dL (2.5-4.9); POTASSIUM 4.2 mmol/L (3.5-5.1)
[2020-03-20 07:27] VITALS: BP 120/43
[2020-03-20] MEDS: HYDROGEN PEROXIDE 3% 118 ML BOTTLE TP SCH ×2 (09:00→21:26)
[2020-03-20] MEDS: METOPROLOL TARTRATE 25 MG TABLET GT SCH ×2 (09:00→20:29)
[2020-03-20] MEDS: LOSARTAN POTASSIUM 25 MG TABLET GT SCH (09:51)
[2020-03-20] MEDS: ASPIRIN 81 MG TAB.CHEW GT SCH (09:51)
[2020-03-20] MEDS: ACIDOPHILUS/BULGARICUS CHEW TAB GT SCH ×2 (09:52→20:29)
[2020-03-20] MEDS: HEPARIN SODIUM,PORCINE 5,000 UNITS/ML VIAL SQ SCH ×2 (09:52→21:47)
[2020-03-20] MEDS: COD LIVER OIL/ZINC OXIDE OINT 113 GM TUBE TP SCH ×2 (09:53→20:31)
[2020-03-20] MEDS: NUTRISOURCE FIBER 4 GM PACKET GT SCH (09:53)
[2020-03-20 10:02] LABS: BASOPHILS # (AUTO) 0.1 K/uL (0.0-8.0); EOSINOPHILS # (AUTO) 0.5 K/uL (0.0-0.7); EOSINOPHILS % (AUTO) 6.8 % (0.0-7.0); HEMOGLOBIN 13.7 g/dL (12.5-16.3); LYMPHOCYTES # (AUTO) 1.6 K/uL (20.0-40.0); LYMPHOCYTES % (AUTO) 22.9 % (20.5-51.5); MEAN CORPUSCULAR HEMOGLOBIN 33.1 uug (23.8-33.4); MEAN CORPUSCULAR HGB CONC 34 g/dL (32.5-36.3); MEAN CORPUSCULAR VOLUME 96.3 fL (73.0-96.2); MONOCYTES # (AUTO) 0.5 K/uL (2.0-10.0); MONOCYTES % (AUTO) 7.3 % (0.0-11.0); NEUTROPHILS # (AUTO) 4.4 K/uL (1.8-8.9); PLATELET COUNT (AUTO) 251 K/uL (152-348); RED BLOOD CELL COUNT(AUTO) 4.15 MIL/uL (4.06-5.63); WHITE BLOOD COUNT (AUTO) 7.1 K/uL (3.6-10.2)
[2020-03-20] MEDS: VITAL AF 1.2 1,000 ML LIQUID GT PRN (11:30)
--- NOTE | 2020-03-20 11:38 | NUR ---
SW called patient's daughter Marina [phone] and informed her of possible COVID-19 exposure on the subacute unit. SW also informed Marina of the testing plan for the next 14 days, as mandated by [facility] regulations. GUTIERREZ stated that patient's family would be notified by nursing after each test result. Marina expressed understanding and thanked this SW for the information provided.
--- NOTE | 2020-03-20 15:05 | NUR ---
PAGED DR. FLORES REGARDING HIS PROGRESS NOTES POST EEG DONE ON 03/12/2020. PER DR. FLORES, EEG SHOWS NO SEIZURE ACTIVITIES, NURSING SHOULD CONTINUE TO MONITOR AND REPORT ANY SIGN OF SEIZURE. DR. FLORES WILL SEE PATIENT NEXT WEEK. WILL CONTINUE TO MONITOR.
--- NOTE | 2020-03-20 15:23 | NUR ---
ANTOINE CONTACTED REJI AND INFORMED THAT CHARGE NURSE PAGED DR. FLORES REGARDING PT'S PROGRESS NOTES POST EEG DONE ON 03/12/2020. REJI WAS INFORMED PER DR. FLORES EEG SHOWS NO SEIZURE ACTIVITIES, NURSING WILL CONTINUE TO MONITOR AND REPORT ANY SIGN OF SEIZURE. DR. FLORES WILL SEE PATIENT NEXT WEEK.
[2020-03-20] MEDS: ATORVASTATIN 20 MG TABLET GT SCH (20:29)
[2020-03-20] MEDS: MULTIVIT, IRON, MIN NO. 8, FA TABLET GT SCH (20:31)
[2020-03-20 20:38] VITALS: BP 121/52
[2020-03-21] MEDS: ALBUTEROL SULFATE 2.5 MG/3 ML NEBU NEB SCH ×4 (00:50→19:26)
--- NOTE | 2020-03-21 01:21 | NUR ---
Patient is afebrile, No respiratory distress noted, 02 sat is 100%, will continue monitor.
[2020-03-21] MEDS: PANTOPRAZOLE ORAL SUSPENSION 40 MG SUSPDR.PKT GT SCH ×2 (06:12→17:22)
[2020-03-21] MEDS: VITAL AF 1.2 1,000 ML LIQUID GT PRN (06:59)
[2020-03-21 07:39] VITALS: BP 138/62
[2020-03-21] MEDS: ASPIRIN 81 MG TAB.CHEW GT SCH (08:32)
[2020-03-21] MEDS: ACIDOPHILUS/BULGARICUS CHEW TAB GT SCH ×2 (08:33→21:23)
[2020-03-21] MEDS: METOPROLOL TARTRATE 25 MG TABLET GT SCH ×2 (08:33→21:23)
[2020-03-21] MEDS: HEPARIN SODIUM,PORCINE 5,000 UNITS/ML VIAL SQ SCH ×2 (08:33→21:52)
[2020-03-21] MEDS: LOSARTAN POTASSIUM 25 MG TABLET GT SCH (08:33)
[2020-03-21] MEDS: NUTRISOURCE FIBER 4 GM PACKET GT SCH (08:33)
[2020-03-21] MEDS: COD LIVER OIL/ZINC OXIDE OINT 113 GM TUBE TP SCH ×2 (08:33→21:23)
[2020-03-21] MEDS: HYDROGEN PEROXIDE 3% 118 ML BOTTLE TP SCH ×2 (09:50→21:45)
[2020-03-21 20:00] VITALS: BP 132/132
[2020-03-21] MEDS: ATORVASTATIN 20 MG TABLET GT SCH (21:23)
[2020-03-22] MEDS: ALBUTEROL SULFATE 2.5 MG/3 ML NEBU NEB SCH ×4 (00:58→19:10)
[2020-03-22] MEDS: PANTOPRAZOLE ORAL SUSPENSION 40 MG SUSPDR.PKT GT SCH ×2 (05:17→17:07)
[2020-03-22] MEDS: VITAL AF 1.2 1,000 ML LIQUID GT PRN (06:00)
[2020-03-22 07:44] VITALS: BP 126/54
[2020-03-22] MEDS: ASPIRIN 81 MG TAB.CHEW GT SCH (08:47)
[2020-03-22] MEDS: LOSARTAN POTASSIUM 25 MG TABLET GT SCH (08:47)
[2020-03-22] MEDS: METOPROLOL TARTRATE 25 MG TABLET GT SCH ×2 (08:48→21:00)
[2020-03-22] MEDS: ACIDOPHILUS/BULGARICUS CHEW TAB GT SCH ×2 (08:48→21:01)
[2020-03-22] MEDS: NUTRISOURCE FIBER 4 GM PACKET GT SCH (08:49)
[2020-03-22] MEDS: COD LIVER OIL/ZINC OXIDE OINT 113 GM TUBE TP SCH ×2 (08:50→21:02)
[2020-03-22] MEDS: HEPARIN SODIUM,PORCINE 5,000 UNITS/ML VIAL SQ SCH ×2 (08:52→21:02)
[2020-03-22] MEDS: HYDROGEN PEROXIDE 3% 118 ML BOTTLE TP SCH ×2 (09:03→21:24)
[2020-03-22 20:48] VITALS: BP 109/50
[2020-03-22] MEDS: ATORVASTATIN 20 MG TABLET GT SCH (21:01)
[2020-03-22] MEDS: MULTIVIT, IRON, MIN NO. 8, FA TABLET GT SCH (21:02)
[2020-03-23] MEDS: VITAL AF 1.2 1,000 ML LIQUID GT PRN ×2 (01:15→23:50)
[2020-03-23] MEDS: ALBUTEROL SULFATE 2.5 MG/3 ML NEBU NEB SCH ×4 (01:27→18:00)
[2020-03-23] MEDS: PANTOPRAZOLE ORAL SUSPENSION 40 MG SUSPDR.PKT GT SCH ×2 (05:12→17:15)
[2020-03-23 07:40] VITALS: BP 118/61
[2020-03-23] MEDS: ASPIRIN 81 MG TAB.CHEW GT SCH (08:36)
[2020-03-23] MEDS: ACIDOPHILUS/BULGARICUS CHEW TAB GT SCH ×2 (08:37→21:42)
[2020-03-23] MEDS: LOSARTAN POTASSIUM 25 MG TABLET GT SCH (08:37)
[2020-03-23] MEDS: NUTRISOURCE FIBER 4 GM PACKET GT SCH (08:38)
[2020-03-23] MEDS: METOPROLOL TARTRATE 25 MG TABLET GT SCH ×2 (08:38→21:43)
[2020-03-23] MEDS: HEPARIN SODIUM,PORCINE 5,000 UNITS/ML VIAL SQ SCH ×2 (08:39→21:41)
[2020-03-23] MEDS: COD LIVER OIL/ZINC OXIDE OINT 113 GM TUBE TP SCH ×2 (08:39→21:43)
[2020-03-23] MEDS: HYDROGEN PEROXIDE 3% 118 ML BOTTLE TP SCH ×2 (09:18→21:34)
[2020-03-23 20:42] VITALS: BP 149/61
[2020-03-23] MEDS: ATORVASTATIN 20 MG TABLET GT SCH (21:43)
[2020-03-24] MEDS: ALBUTEROL SULFATE 2.5 MG/3 ML NEBU NEB SCH ×4 (01:51→19:25)
[2020-03-24] MEDS: PANTOPRAZOLE ORAL SUSPENSION 40 MG SUSPDR.PKT GT SCH ×2 (05:33→17:16)
[2020-03-24 07:58] VITALS: BP 101/57
[2020-03-24] MEDS: ASPIRIN 81 MG TAB.CHEW GT SCH (08:24)
[2020-03-24] MEDS: LOSARTAN POTASSIUM 25 MG TABLET GT SCH (08:32)
[2020-03-24] MEDS: NUTRISOURCE FIBER 4 GM PACKET GT SCH (08:33)
[2020-03-24] MEDS: ACIDOPHILUS/BULGARICUS CHEW TAB GT SCH ×2 (08:33→21:24)
[2020-03-24] MEDS: METOPROLOL TARTRATE 25 MG TABLET GT SCH ×2 (08:33→21:00)
[2020-03-24] MEDS: HEPARIN SODIUM,PORCINE 5,000 UNITS/ML VIAL SQ SCH ×2 (08:34→21:25)
[2020-03-24] MEDS: COD LIVER OIL/ZINC OXIDE OINT 113 GM TUBE TP SCH ×2 (08:34→21:28)
[2020-03-24] MEDS: HYDROGEN PEROXIDE 3% 118 ML BOTTLE TP SCH ×2 (09:18→21:31)
[2020-03-24] MEDS: VITAL AF 1.2 1,000 ML LIQUID GT PRN (17:17)
[2020-03-24 20:09] VITALS: BP 128/70
[2020-03-24] MEDS: ATORVASTATIN 20 MG TABLET GT SCH (21:24)
[2020-03-24] MEDS: MULTIVIT, IRON, MIN NO. 8, FA TABLET GT SCH (21:25)
[2020-03-25] MEDS: ALBUTEROL SULFATE 2.5 MG/3 ML NEBU NEB SCH ×4 (00:50→19:04)
[2020-03-25] MEDS: PANTOPRAZOLE ORAL SUSPENSION 40 MG SUSPDR.PKT GT SCH ×2 (05:40→17:01)
[2020-03-25 07:23] VITALS: BP 130/51
[2020-03-25] MEDS: HYDROGEN PEROXIDE 3% 118 ML BOTTLE TP SCH ×2 (08:07→21:00)
[2020-03-25] MEDS: HEPARIN SODIUM,PORCINE 5,000 UNITS/ML VIAL SQ SCH ×2 (08:45→21:41)
[2020-03-25] MEDS: ASPIRIN 81 MG TAB.CHEW GT SCH (08:45)
[2020-03-25] MEDS: ACIDOPHILUS/BULGARICUS CHEW TAB GT SCH ×2 (08:46→21:34)
[2020-03-25] MEDS: LOSARTAN POTASSIUM 25 MG TABLET GT SCH (08:46)
[2020-03-25] MEDS: METOPROLOL TARTRATE 25 MG TABLET GT SCH ×2 (08:48→21:36)
[2020-03-25] MEDS: NUTRISOURCE FIBER 4 GM PACKET GT SCH (08:48)
[2020-03-25] MEDS: COD LIVER OIL/ZINC OXIDE OINT 113 GM TUBE TP SCH ×2 (08:49→21:41)
[2020-03-25] MEDS: VITAL AF 1.2 1,000 ML LIQUID GT PRN (14:50)
--- NOTE | 2020-03-25 18:36 | NUR ---
Marina Felipe's daughter notified COVID-19 test result was negative.
[2020-03-25 20:00] VITALS: BP 113/52
[2020-03-25] MEDS: ATORVASTATIN 20 MG TABLET GT SCH (21:34)
[2020-03-26] MEDS: ALBUTEROL SULFATE 2.5 MG/3 ML NEBU NEB SCH ×4 (01:38→19:50)
[2020-03-26] MEDS: PANTOPRAZOLE ORAL SUSPENSION 40 MG SUSPDR.PKT GT SCH ×2 (05:45→17:14)
[2020-03-26 07:40] VITALS: BP 99/62
[2020-03-26] MEDS: HYDROGEN PEROXIDE 3% 118 ML BOTTLE TP SCH ×2 (08:21→21:33)
[2020-03-26] MEDS: LOSARTAN POTASSIUM 25 MG TABLET GT SCH (08:47)
[2020-03-26] MEDS: ASPIRIN 81 MG TAB.CHEW GT SCH (08:47)
[2020-03-26] MEDS: ACIDOPHILUS/BULGARICUS CHEW TAB GT SCH ×2 (08:48→20:45)
[2020-03-26] MEDS: METOPROLOL TARTRATE 25 MG TABLET GT SCH ×2 (08:48→20:49)
[2020-03-26] MEDS: NUTRISOURCE FIBER 4 GM PACKET GT SCH (08:48)
[2020-03-26] MEDS: HEPARIN SODIUM,PORCINE 5,000 UNITS/ML VIAL SQ SCH ×2 (08:50→20:51)
[2020-03-26] MEDS: COD LIVER OIL/ZINC OXIDE OINT 113 GM TUBE TP SCH ×2 (08:50→20:51)
[2020-03-26 20:00] VITALS: BP 113/65
[2020-03-26] MEDS: ATORVASTATIN 20 MG TABLET GT SCH (20:46)
[2020-03-26] MEDS: MULTIVIT, IRON, MIN NO. 8, FA TABLET GT SCH (20:49)
[2020-03-27] MEDS: ALBUTEROL SULFATE 2.5 MG/3 ML NEBU NEB SCH ×4 (01:15→19:40)
[2020-03-27] MEDS: VITAL AF 1.2 1,000 ML LIQUID GT PRN (02:49)
[2020-03-27] MEDS: PANTOPRAZOLE ORAL SUSPENSION 40 MG SUSPDR.PKT GT SCH ×2 (05:13→17:25)
[2020-03-27 07:29] VITALS: BP 147/62
[2020-03-27] MEDS: LOSARTAN POTASSIUM 25 MG TABLET GT SCH (08:26)
[2020-03-27] MEDS: ACIDOPHILUS/BULGARICUS CHEW TAB GT SCH ×2 (08:26→21:19)
[2020-03-27] MEDS: ASPIRIN 81 MG TAB.CHEW GT SCH (08:26)
[2020-03-27] MEDS: METOPROLOL TARTRATE 25 MG TABLET GT SCH ×2 (08:27→21:00)
[2020-03-27] MEDS: NUTRISOURCE FIBER 4 GM PACKET GT SCH (08:27)
[2020-03-27] MEDS: COD LIVER OIL/ZINC OXIDE OINT 113 GM TUBE TP SCH ×2 (08:28→21:24)
[2020-03-27] MEDS: HEPARIN SODIUM,PORCINE 5,000 UNITS/ML VIAL SQ SCH ×2 (08:28→21:24)
[2020-03-27] MEDS: HYDROGEN PEROXIDE 3% 118 ML BOTTLE TP SCH ×2 (08:39→21:46)
--- NOTE | 2020-03-27 13:00 | NUR ---
SEEN BY DR. FLORES AND JEFFREYO,HE STATED THAT WAS GOING TO TALK TO PT'S SON RE EEG PATS RESULTS.
--- NOTE | 2020-03-27 18:40 | NUR ---
SEEN BY DR. WALLACE AND WITH NEW ORDERS CARRIED OUT.SEEN BY DR. GUTIERREZ AND WITH NNO.
[2020-03-27 20:00] VITALS: BP 108/61
[2020-03-27] MEDS: ATORVASTATIN 20 MG TABLET GT SCH (21:21)
[2020-03-28] MEDS: VITAL AF 1.2 1,000 ML LIQUID GT PRN ×2 (00:23→22:50)
[2020-03-28] MEDS: ALBUTEROL SULFATE 2.5 MG/3 ML NEBU NEB SCH ×4 (01:30→20:05)
[2020-03-28] MEDS: PANTOPRAZOLE ORAL SUSPENSION 40 MG SUSPDR.PKT GT SCH ×2 (05:40→17:30)
[2020-03-28 07:30] LABS: BASOPHILS # (AUTO) 0.1 K/uL (0.0-8.0); BASOPHILS % (AUTO) 1.1 % (0.0-2.0); EOSINOPHILS # (AUTO) 0.5 K/uL (0.0-0.7); HEMATOCRIT 37.3 % (36.7-47.1); HEMOGLOBIN 12.8 g/dL (12.5-16.3); LYMPHOCYTES # (AUTO) 1.4 K/uL (20.0-40.0); LYMPHOCYTES % (AUTO) 23.5 % (20.5-51.5); MEAN CORPUSCULAR HGB CONC 35 g/dL (32.5-36.3); MEAN CORPUSCULAR VOLUME 95.8 fL (73.0-96.2); MONOCYTES # (AUTO) 0.4 K/uL (2.0-10.0); MONOCYTES % (AUTO) 7.1 % (0.0-11.0); NEUTROPHILS # (AUTO) 3.7 K/uL (1.8-8.9); NEUTROPHILS % (AUTO) 60.3 % (38.5-71.5); PLATELET COUNT (AUTO) 266 K/uL (152-348); RED BLOOD CELL COUNT(AUTO) 3.89 MIL/uL (4.06-5.63); WHITE BLOOD COUNT (AUTO) 6.1 K/uL (3.6-10.2)
[2020-03-28 07:45] VITALS: BP 129/64
[2020-03-28 07:48] LABS: CREATININE 0.6 mg/dL (0.6-1.3); MAGNESIUM 2.4 mg/dL (1.8-2.4); PHOSPHOROUS 3.7 mg/dL (2.5-4.9); POTASSIUM 4.2 mmol/L (3.5-5.1)
[2020-03-28] MEDS: NUTRISOURCE FIBER 4 GM PACKET GT SCH (08:48)
[2020-03-28] MEDS: ASPIRIN 81 MG TAB.CHEW GT SCH (08:48)
[2020-03-28] MEDS: METOPROLOL TARTRATE 25 MG TABLET GT SCH ×2 (08:48→20:58)
[2020-03-28] MEDS: LOSARTAN POTASSIUM 25 MG TABLET GT SCH (08:48)
[2020-03-28] MEDS: ACIDOPHILUS/BULGARICUS CHEW TAB GT SCH ×2 (08:48→20:58)
[2020-03-28] MEDS: HEPARIN SODIUM,PORCINE 5,000 UNITS/ML VIAL SQ SCH ×2 (08:50→20:53)
[2020-03-28] MEDS: COD LIVER OIL/ZINC OXIDE OINT 113 GM TUBE TP SCH ×2 (08:51→20:59)
[2020-03-28] MEDS: HYDROGEN PEROXIDE 3% 118 ML BOTTLE TP SCH ×2 (09:06→20:05)
[2020-03-28 20:00] VITALS: BP 121/66
[2020-03-28] MEDS: ATORVASTATIN 20 MG TABLET GT SCH (20:58)
[2020-03-28] MEDS: MULTIVIT, IRON, MIN NO. 8, FA TABLET GT SCH (20:59)
[2020-03-29] MEDS: ALBUTEROL SULFATE 2.5 MG/3 ML NEBU NEB SCH ×4 (00:50→19:03)
[2020-03-29] MEDS: PANTOPRAZOLE ORAL SUSPENSION 40 MG SUSPDR.PKT GT SCH ×2 (05:17→18:08)
[2020-03-29 07:37] VITALS: BP 131/68
[2020-03-29] MEDS: HYDROGEN PEROXIDE 3% 118 ML BOTTLE TP SCH ×2 (08:05→21:49)
[2020-03-29] MEDS: ASPIRIN 81 MG TAB.CHEW GT SCH (08:57)
[2020-03-29] MEDS: LOSARTAN POTASSIUM 25 MG TABLET GT SCH (08:57)
[2020-03-29] MEDS: METOPROLOL TARTRATE 25 MG TABLET GT SCH ×2 (08:59→21:00)
[2020-03-29] MEDS: ACIDOPHILUS/BULGARICUS CHEW TAB GT SCH ×2 (08:59→21:19)
[2020-03-29] MEDS: NUTRISOURCE FIBER 4 GM PACKET GT SCH (08:59)
[2020-03-29] MEDS: HEPARIN SODIUM,PORCINE 5,000 UNITS/ML VIAL SQ SCH ×2 (09:00→21:19)
[2020-03-29] MEDS: COD LIVER OIL/ZINC OXIDE OINT 113 GM TUBE TP SCH ×2 (09:00→21:19)
[2020-03-29] MEDS: VITAL AF 1.2 1,000 ML LIQUID GT PRN (17:00)
[2020-03-29] MEDS: ATORVASTATIN 20 MG TABLET GT SCH (21:19)
[2020-03-29 22:58] VITALS: BP 99/50
[2020-03-30] MEDS: ALBUTEROL SULFATE 2.5 MG/3 ML NEBU NEB SCH ×4 (01:07→19:04)
[2020-03-30] MEDS: PANTOPRAZOLE ORAL SUSPENSION 40 MG SUSPDR.PKT GT SCH ×2 (05:36→17:58)
[2020-03-30 07:29] VITALS: BP 117/46
[2020-03-30] MEDS: HYDROGEN PEROXIDE 3% 118 ML BOTTLE TP SCH ×2 (08:26→21:21)
[2020-03-30] MEDS: ACIDOPHILUS/BULGARICUS CHEW TAB GT SCH ×2 (08:32→21:15)
[2020-03-30] MEDS: METOPROLOL TARTRATE 25 MG TABLET GT SCH ×2 (08:32→21:15)
[2020-03-30] MEDS: LOSARTAN POTASSIUM 25 MG TABLET GT SCH (08:32)
[2020-03-30] MEDS: ASPIRIN 81 MG TAB.CHEW GT SCH (08:32)
[2020-03-30] MEDS: COD LIVER OIL/ZINC OXIDE OINT 113 GM TUBE TP SCH ×2 (08:33→21:16)
[2020-03-30] MEDS: NUTRISOURCE FIBER 4 GM PACKET GT SCH (08:33)
[2020-03-30] MEDS: HEPARIN SODIUM,PORCINE 5,000 UNITS/ML VIAL SQ SCH ×2 (08:34→21:16)
[2020-03-30 20:55] VITALS: BP 129/58
[2020-03-30] MEDS: MULTIVIT, IRON, MIN NO. 8, FA TABLET GT SCH (21:15)
[2020-03-30] MEDS: ATORVASTATIN 20 MG TABLET GT SCH (21:15)
[2020-03-31] MEDS: ALBUTEROL SULFATE 2.5 MG/3 ML NEBU NEB SCH ×4 (01:03→19:30)
[2020-03-31] MEDS: PANTOPRAZOLE ORAL SUSPENSION 40 MG SUSPDR.PKT GT SCH ×2 (06:00→17:43)
[2020-03-31 07:28] VITALS: BP 111/51
[2020-03-31] MEDS: ASPIRIN 81 MG TAB.CHEW GT SCH (08:36)
[2020-03-31] MEDS: ACIDOPHILUS/BULGARICUS CHEW TAB GT SCH ×2 (08:36→21:19)
[2020-03-31] MEDS: LOSARTAN POTASSIUM 25 MG TABLET GT SCH (08:36)
[2020-03-31] MEDS: NUTRISOURCE FIBER 4 GM PACKET GT SCH (08:37)
[2020-03-31] MEDS: METOPROLOL TARTRATE 25 MG TABLET GT SCH ×2 (08:37→21:19)
[2020-03-31] MEDS: COD LIVER OIL/ZINC OXIDE OINT 113 GM TUBE TP SCH ×2 (08:37→21:20)
[2020-03-31] MEDS: HEPARIN SODIUM,PORCINE 5,000 UNITS/ML VIAL SQ SCH ×2 (08:39→21:00)
[2020-03-31] MEDS: HYDROGEN PEROXIDE 3% 118 ML BOTTLE TP SCH ×2 (09:50→21:32)
--- NOTE | 2020-03-31 16:00 | NUR ---
SEEN BY ENOCH Denton AND DR. RODRIGO Arana AND WITH NNO.
[2020-03-31 20:42] VITALS: BP 129/60
[2020-03-31] MEDS: ATORVASTATIN 20 MG TABLET GT SCH (21:19)
[2020-04-01] MEDS: ALBUTEROL SULFATE 2.5 MG/3 ML NEBU NEB SCH ×4 (01:20→19:35)
[2020-04-01] MEDS: PANTOPRAZOLE ORAL SUSPENSION 40 MG SUSPDR.PKT GT SCH ×2 (05:07→17:05)
[2020-04-01 07:28] VITALS: BP 132/52
[2020-04-01] MEDS: HYDROGEN PEROXIDE 3% 118 ML BOTTLE TP SCH ×2 (07:41→21:15)
[2020-04-01] MEDS: ASPIRIN 81 MG TAB.CHEW GT SCH (08:18)
[2020-04-01] MEDS: ACIDOPHILUS/BULGARICUS CHEW TAB GT SCH ×2 (08:24→20:06)
[2020-04-01] MEDS: LOSARTAN POTASSIUM 25 MG TABLET GT SCH (08:24)
[2020-04-01] MEDS: METOPROLOL TARTRATE 25 MG TABLET GT SCH ×2 (08:25→20:08)
[2020-04-01] MEDS: NUTRISOURCE FIBER 4 GM PACKET GT SCH (08:25)
[2020-04-01] MEDS: HEPARIN SODIUM,PORCINE 5,000 UNITS/ML VIAL SQ SCH ×2 (08:26→20:10)
[2020-04-01] MEDS: COD LIVER OIL/ZINC OXIDE OINT 113 GM TUBE TP SCH ×2 (08:26→20:10)
--- NOTE | 2020-04-01 14:15 | NUR ---
SW notified patient's son Reji, daughter Marina, and ddsfalgs-kx-jis Gin, via email, that the next IDT meeting for the patient is scheduled for 04/08/2020 at 11am. SW asked patient's family to let this SW know if they would like to participate in the meeting through speaker phone.
[2020-04-01] MEDS: VITAL AF 1.2 1,000 ML LIQUID GT PRN (17:43)
[2020-04-01 20:07] VITALS: BP 131/51
[2020-04-01] MEDS: ATORVASTATIN 20 MG TABLET GT SCH (20:07)
[2020-04-01] MEDS: MULTIVIT, IRON, MIN NO. 8, FA TABLET GT SCH (20:08)
[2020-04-02] MEDS: ALBUTEROL SULFATE 2.5 MG/3 ML NEBU NEB SCH ×4 (01:16→19:03)
[2020-04-02] MEDS: PANTOPRAZOLE ORAL SUSPENSION 40 MG SUSPDR.PKT GT SCH ×2 (05:18→17:04)
[2020-04-02 07:36] VITALS: BP 116/60
[2020-04-02] MEDS: HYDROGEN PEROXIDE 3% 118 ML BOTTLE TP SCH ×2 (08:12→21:47)
[2020-04-02] MEDS: ASPIRIN 81 MG TAB.CHEW GT SCH (08:29)
[2020-04-02] MEDS: LOSARTAN POTASSIUM 25 MG TABLET GT SCH (08:30)
[2020-04-02] MEDS: ACIDOPHILUS/BULGARICUS CHEW TAB GT SCH ×2 (08:30→20:25)
[2020-04-02] MEDS: METOPROLOL TARTRATE 25 MG TABLET GT SCH ×2 (08:31→20:25)
[2020-04-02] MEDS: NUTRISOURCE FIBER 4 GM PACKET GT SCH (08:32)
[2020-04-02] MEDS: COD LIVER OIL/ZINC OXIDE OINT 113 GM TUBE TP SCH ×2 (08:35→20:28)
[2020-04-02] MEDS: HEPARIN SODIUM,PORCINE 5,000 UNITS/ML VIAL SQ SCH ×2 (08:35→21:00)
[2020-04-02 20:22] VITALS: BP 120/56
[2020-04-02] MEDS: ATORVASTATIN 20 MG TABLET GT SCH (20:25)
[2020-04-03] MEDS: ALBUTEROL SULFATE 2.5 MG/3 ML NEBU NEB SCH ×4 (01:06→19:04)
[2020-04-03] MEDS: PANTOPRAZOLE ORAL SUSPENSION 40 MG SUSPDR.PKT GT SCH ×2 (06:53→17:53)
[2020-04-03 07:45] VITALS: BP 122/58
[2020-04-03] MEDS: ACIDOPHILUS/BULGARICUS CHEW TAB GT SCH ×2 (08:17→21:51)
[2020-04-03] MEDS: ASPIRIN 81 MG TAB.CHEW GT SCH (08:17)
[2020-04-03] MEDS: METOPROLOL TARTRATE 25 MG TABLET GT SCH ×2 (08:19→21:00)
[2020-04-03] MEDS: NUTRISOURCE FIBER 4 GM PACKET GT SCH (08:20)
[2020-04-03] MEDS: HEPARIN SODIUM,PORCINE 5,000 UNITS/ML VIAL SQ SCH ×2 (08:25→21:54)
[2020-04-03] MEDS: COD LIVER OIL/ZINC OXIDE OINT 113 GM TUBE TP SCH ×2 (08:26→21:55)
[2020-04-03] MEDS: LOSARTAN POTASSIUM 25 MG TABLET GT SCH (08:28)
[2020-04-03] MEDS: HYDROGEN PEROXIDE 3% 118 ML BOTTLE TP SCH ×2 (09:18→21:02)
[2020-04-03] MEDS: ATORVASTATIN 20 MG TABLET GT SCH (21:52)
[2020-04-03] MEDS: MULTIVIT, IRON, MIN NO. 8, FA TABLET GT SCH (21:53)
[2020-04-03 22:20] VITALS: BP 102/51
[2020-04-04] MEDS: ALBUTEROL SULFATE 2.5 MG/3 ML NEBU NEB SCH ×4 (01:04→19:20)
[2020-04-04] MEDS: VITAL AF 1.2 1,000 ML LIQUID GT PRN ×2 (01:40→22:13)
[2020-04-04] MEDS: PANTOPRAZOLE ORAL SUSPENSION 40 MG SUSPDR.PKT GT SCH ×2 (05:26→17:14)
[2020-04-04 07:28] VITALS: BP 120/63
[2020-04-04] MEDS: LOSARTAN POTASSIUM 25 MG TABLET GT SCH (08:16)
[2020-04-04] MEDS: ASPIRIN 81 MG TAB.CHEW GT SCH (08:16)
[2020-04-04] MEDS: ACIDOPHILUS/BULGARICUS CHEW TAB GT SCH ×2 (08:16→20:54)
[2020-04-04] MEDS: NUTRISOURCE FIBER 4 GM PACKET GT SCH (08:17)
[2020-04-04] MEDS: METOPROLOL TARTRATE 25 MG TABLET GT SCH ×2 (08:17→20:55)
[2020-04-04] MEDS: COD LIVER OIL/ZINC OXIDE OINT 113 GM TUBE TP SCH ×2 (08:17→20:55)
[2020-04-04] MEDS: HEPARIN SODIUM,PORCINE 5,000 UNITS/ML VIAL SQ SCH ×2 (08:17→20:55)
[2020-04-04] MEDS: HYDROGEN PEROXIDE 3% 118 ML BOTTLE TP SCH ×2 (09:00→21:09)
[2020-04-04 20:26] VITALS: BP 101/57
[2020-04-04] MEDS: ATORVASTATIN 20 MG TABLET GT SCH (20:54)
[2020-04-05] MEDS: ALBUTEROL SULFATE 2.5 MG/3 ML NEBU NEB SCH ×4 (00:50→19:30)
[2020-04-05] MEDS: PANTOPRAZOLE ORAL SUSPENSION 40 MG SUSPDR.PKT GT SCH ×2 (05:27→18:17)
[2020-04-05 07:36] VITALS: BP 110/60
[2020-04-05] MEDS: LOSARTAN POTASSIUM 25 MG TABLET GT SCH (09:00)
[2020-04-05] MEDS: HYDROGEN PEROXIDE 3% 118 ML BOTTLE TP SCH ×2 (09:40→20:29)
[2020-04-05] MEDS: ASPIRIN 81 MG TAB.CHEW GT SCH (09:56)
[2020-04-05] MEDS: METOPROLOL TARTRATE 25 MG TABLET GT SCH ×2 (09:57→20:30)
[2020-04-05] MEDS: ACIDOPHILUS/BULGARICUS CHEW TAB GT SCH ×2 (09:57→20:28)
[2020-04-05] MEDS: COD LIVER OIL/ZINC OXIDE OINT 113 GM TUBE TP SCH ×2 (09:58→20:30)
[2020-04-05] MEDS: HEPARIN SODIUM,PORCINE 5,000 UNITS/ML VIAL SQ SCH ×2 (09:58→20:29)
[2020-04-05] MEDS: NUTRISOURCE FIBER 4 GM PACKET GT SCH (09:58)
[2020-04-05] MEDS: ATORVASTATIN 20 MG TABLET GT SCH (20:28)
[2020-04-05] MEDS: MULTIVIT, IRON, MIN NO. 8, FA TABLET GT SCH (20:30)
[2020-04-05 20:36] VITALS: BP 116/63
[2020-04-06] MEDS: ALBUTEROL SULFATE 2.5 MG/3 ML NEBU NEB SCH ×4 (01:17→19:35)
[2020-04-06] MEDS: VITAL AF 1.2 1,000 ML LIQUID GT PRN (04:33)
[2020-04-06] MEDS: PANTOPRAZOLE ORAL SUSPENSION 40 MG SUSPDR.PKT GT SCH ×2 (05:38→17:47)
[2020-04-06 07:54] VITALS: BP 126/45
[2020-04-06] MEDS: ASPIRIN 81 MG TAB.CHEW GT SCH (09:06)
[2020-04-06] MEDS: LOSARTAN POTASSIUM 25 MG TABLET GT SCH (09:07)
[2020-04-06] MEDS: ACIDOPHILUS/BULGARICUS CHEW TAB GT SCH ×2 (09:07→20:36)
[2020-04-06] MEDS: METOPROLOL TARTRATE 25 MG TABLET GT SCH ×2 (09:08→20:37)
[2020-04-06] MEDS: NUTRISOURCE FIBER 4 GM PACKET GT SCH (09:09)
[2020-04-06] MEDS: HEPARIN SODIUM,PORCINE 5,000 UNITS/ML VIAL SQ SCH ×2 (09:14→20:27)
[2020-04-06] MEDS: COD LIVER OIL/ZINC OXIDE OINT 113 GM TUBE TP SCH ×2 (09:14→20:37)
[2020-04-06] MEDS: HYDROGEN PEROXIDE 3% 118 ML BOTTLE TP SCH ×2 (09:23→21:17)
--- NOTE | 2020-04-06 16:00 | NUR ---
Provided Zoom meeting for Patient with son.
[2020-04-06] MEDS: ATORVASTATIN 20 MG TABLET GT SCH (20:36)
[2020-04-06 23:04] VITALS: BP 111/64
[2020-04-07] MEDS: ALBUTEROL SULFATE 2.5 MG/3 ML NEBU NEB SCH ×4 (01:16→19:30)
[2020-04-07] MEDS: VITAL AF 1.2 1,000 ML LIQUID GT PRN (01:47)
[2020-04-07] MEDS: PANTOPRAZOLE ORAL SUSPENSION 40 MG SUSPDR.PKT GT SCH ×2 (06:21→17:16)
[2020-04-07 07:46] VITALS: BP 121/50
[2020-04-07] MEDS: ASPIRIN 81 MG TAB.CHEW GT SCH (08:41)
[2020-04-07] MEDS: ACIDOPHILUS/BULGARICUS CHEW TAB GT SCH ×2 (08:41→20:56)
[2020-04-07] MEDS: LOSARTAN POTASSIUM 25 MG TABLET GT SCH (08:41)
[2020-04-07] MEDS: NUTRISOURCE FIBER 4 GM PACKET GT SCH (08:42)
[2020-04-07] MEDS: METOPROLOL TARTRATE 25 MG TABLET GT SCH ×2 (08:42→20:57)
[2020-04-07] MEDS: COD LIVER OIL/ZINC OXIDE OINT 113 GM TUBE TP SCH ×2 (08:44→20:58)
[2020-04-07] MEDS: HEPARIN SODIUM,PORCINE 5,000 UNITS/ML VIAL SQ SCH ×2 (08:44→20:34)
[2020-04-07] MEDS: HYDROGEN PEROXIDE 3% 118 ML BOTTLE TP SCH ×2 (09:26→21:35)
[2020-04-07 20:29] VITALS: BP 112/52
[2020-04-07] MEDS: ATORVASTATIN 20 MG TABLET GT SCH (20:57)
[2020-04-07] MEDS: MULTIVIT, IRON, MIN NO. 8, FA TABLET GT SCH (20:58)
[2020-04-08] MEDS: ALBUTEROL SULFATE 2.5 MG/3 ML NEBU NEB SCH ×4 (00:45→19:26)
[2020-04-08] MEDS: PANTOPRAZOLE ORAL SUSPENSION 40 MG SUSPDR.PKT GT SCH ×2 (06:40→17:49)
[2020-04-08 07:44] VITALS: BP 120/53
[2020-04-08] MEDS: ACIDOPHILUS/BULGARICUS CHEW TAB GT SCH ×2 (08:15→21:50)
[2020-04-08] MEDS: LOSARTAN POTASSIUM 25 MG TABLET GT SCH (08:15)
[2020-04-08] MEDS: ASPIRIN 81 MG TAB.CHEW GT SCH (08:15)
[2020-04-08] MEDS: METOPROLOL TARTRATE 25 MG TABLET GT SCH ×2 (08:16→21:00)
[2020-04-08] MEDS: NUTRISOURCE FIBER 4 GM PACKET GT SCH (08:17)
[2020-04-08] MEDS: COD LIVER OIL/ZINC OXIDE OINT 113 GM TUBE TP SCH ×2 (08:17→21:54)
[2020-04-08] MEDS: HEPARIN SODIUM,PORCINE 5,000 UNITS/ML VIAL SQ SCH ×2 (08:17→21:54)
[2020-04-08] MEDS: HYDROGEN PEROXIDE 3% 118 ML BOTTLE TP SCH ×2 (08:44→20:59)
[2020-04-08] MEDS: VITAL AF 1.2 1,000 ML LIQUID GT PRN (14:43)
--- NOTE | 2020-04-08 15:42 | NUR ---
INTERDISCIPLINARY PLAN OF CARE CONFERENCE was held today. Patient's [id number]-[id number]-vhk Gin participated in the meeting through speaker phone. Dr. Leary and the Interdisciplinary team reviewed the current plan of care in detail. RN reported on the patient's medical condition. No major changes in condition were reported by RN or by other disciplines in patient's condition. See RN IDT conference notes. See also all other disciplines IDT notes and physician's progress notes for additional details. Gin stated she did not have any questions or concerns at this time, and expressed being content with the current plan of care.
[2020-04-08 20:01] VITALS: BP 133/55
[2020-04-08] MEDS: ATORVASTATIN 20 MG TABLET GT SCH (21:50)
[2020-04-09] MEDS: ALBUTEROL SULFATE 2.5 MG/3 ML NEBU NEB SCH ×4 (00:46→19:25)
[2020-04-09] MEDS: PANTOPRAZOLE ORAL SUSPENSION 40 MG SUSPDR.PKT GT SCH (05:49)
[2020-04-09 06:18] LABS: BASOPHILS # (AUTO) 0.1 K/uL (0.0-8.0); BASOPHILS % (AUTO) 1.2 % (0.0-2.0); EOSINOPHILS # (AUTO) 0.4 K/uL (0.0-0.7); EOSINOPHILS % (AUTO) 5.9 % (0.0-7.0); HEMATOCRIT 36.2 % (36.7-47.1); LYMPHOCYTES # (AUTO) 1.1 K/uL (20.0-40.0); LYMPHOCYTES % (AUTO) 16.6 % (20.5-51.5); MEAN CORPUSCULAR HEMOGLOBIN 34.1 uug (23.8-33.4); MEAN CORPUSCULAR HGB CONC 36 g/dL (32.5-36.3); MEAN CORPUSCULAR VOLUME 95.1 fL (73.0-96.2); MONOCYTES # (AUTO) 0.4 K/uL (2.0-10.0); MONOCYTES % (AUTO) 6.6 % (0.0-11.0); NEUTROPHILS # (AUTO) 4.6 K/uL (1.8-8.9); NEUTROPHILS % (AUTO) 69.7 % (38.5-71.5); PLATELET COUNT (AUTO) 250 K/uL (152-348); RED BLOOD CELL COUNT(AUTO) 3.81 MIL/uL (4.06-5.63); WHITE BLOOD COUNT (AUTO) 6.7 K/uL (3.6-10.2)
[2020-04-09 06:48] LABS: CREATININE 0.7 mg/dL (0.6-1.3); PHOSPHOROUS 3.2 mg/dL (2.5-4.9); POTASSIUM 4.2 mmol/L (3.5-5.1)
[2020-04-09] MEDS: HYDROGEN PEROXIDE 3% 118 ML BOTTLE TP SCH ×2 (07:33→19:25)
[2020-04-09 07:44] VITALS: BP 140/50
[2020-04-09] MEDS: METOPROLOL TARTRATE 25 MG TABLET GT SCH ×2 (09:02→21:54)
[2020-04-09] MEDS: NUTRISOURCE FIBER 4 GM PACKET GT SCH (09:03)
[2020-04-09] MEDS: COD LIVER OIL/ZINC OXIDE OINT 113 GM TUBE TP SCH ×2 (09:04→21:54)
[2020-04-09] MEDS: ASPIRIN 81 MG TAB.CHEW GT SCH (09:06)
[2020-04-09] MEDS: HEPARIN SODIUM,PORCINE 5,000 UNITS/ML VIAL SQ SCH ×2 (09:06→21:59)
[2020-04-09] MEDS: LOSARTAN POTASSIUM 25 MG TABLET GT SCH (09:06)
[2020-04-09] MEDS: ACIDOPHILUS/BULGARICUS CHEW TAB GT SCH ×2 (09:06→21:54)
[2020-04-09] MEDS: OMEPRAZOLE 20 MG CAPSULE.DR GT SCH (17:38)
[2020-04-09 20:00] VITALS: BP 120/64
[2020-04-09] MEDS: ATORVASTATIN 20 MG TABLET GT SCH (21:54)
[2020-04-09] MEDS: MULTIVIT, IRON, MIN NO. 8, FA TABLET GT SCH (21:54)
[2020-04-10] MEDS: ALBUTEROL SULFATE 2.5 MG/3 ML NEBU NEB SCH ×4 (01:05→19:30)
[2020-04-10] MEDS: OMEPRAZOLE 20 MG CAPSULE.DR GT SCH ×2 (06:23→17:51)
[2020-04-10] MEDS: HYDROGEN PEROXIDE 3% 118 ML BOTTLE TP SCH ×2 (07:55→21:25)
[2020-04-10] MEDS: LOSARTAN POTASSIUM 25 MG TABLET GT SCH (09:02)
[2020-04-10] MEDS: ACIDOPHILUS/BULGARICUS CHEW TAB GT SCH ×2 (09:02→21:36)
[2020-04-10] MEDS: ASPIRIN 81 MG TAB.CHEW GT SCH (09:02)
[2020-04-10] MEDS: METOPROLOL TARTRATE 25 MG TABLET GT SCH ×2 (09:02→21:37)
[2020-04-10] MEDS: NUTRISOURCE FIBER 4 GM PACKET GT SCH (09:03)
[2020-04-10] MEDS: COD LIVER OIL/ZINC OXIDE OINT 113 GM TUBE TP SCH ×2 (09:03→21:37)
[2020-04-10] MEDS: HEPARIN SODIUM,PORCINE 5,000 UNITS/ML VIAL SQ SCH ×2 (09:03→21:48)
[2020-04-10 15:52] VITALS: BP 120/55
[2020-04-10 20:00] VITALS: BP 128/51
[2020-04-10] MEDS: ATORVASTATIN 20 MG TABLET GT SCH (21:37)
[2020-04-11] MEDS: ALBUTEROL SULFATE 2.5 MG/3 ML NEBU NEB SCH ×4 (01:17→19:14)
[2020-04-11] MEDS: VITAL AF 1.2 1,000 ML LIQUID GT PRN ×2 (02:56→22:25)
[2020-04-11] MEDS: OMEPRAZOLE 20 MG CAPSULE.DR GT SCH ×2 (05:25→17:11)
[2020-04-11 07:34] VITALS: BP 127/64
[2020-04-11] MEDS: HYDROGEN PEROXIDE 3% 118 ML BOTTLE TP SCH ×2 (07:35→19:14)
[2020-04-11] MEDS: ASPIRIN 81 MG TAB.CHEW GT SCH (08:16)
[2020-04-11] MEDS: ACIDOPHILUS/BULGARICUS CHEW TAB GT SCH ×2 (08:17→20:43)
[2020-04-11] MEDS: LOSARTAN POTASSIUM 25 MG TABLET GT SCH (08:17)
[2020-04-11] MEDS: METOPROLOL TARTRATE 25 MG TABLET GT SCH ×2 (08:18→20:43)
[2020-04-11] MEDS: NUTRISOURCE FIBER 4 GM PACKET GT SCH (08:18)
[2020-04-11] MEDS: HEPARIN SODIUM,PORCINE 5,000 UNITS/ML VIAL SQ SCH ×2 (08:18→20:51)
[2020-04-11] MEDS: COD LIVER OIL/ZINC OXIDE OINT 113 GM TUBE TP SCH ×2 (08:20→20:44)
--- NOTE | 2020-04-11 11:24 | NUR ---
PT. SEEN AND EXAMINED BY DR. GABRIEL ELIZALDE AND WITH NEW ORDERS CARRIED OUT.
[2020-04-11 20:00] VITALS: BP 104/51
[2020-04-11] MEDS: ATORVASTATIN 20 MG TABLET GT SCH (20:43)
[2020-04-11] MEDS: MULTIVIT, IRON, MIN NO. 8, FA TABLET GT SCH (20:43)
[2020-04-12] MEDS: ALBUTEROL SULFATE 2.5 MG/3 ML NEBU NEB SCH ×4 (00:40→19:30)
[2020-04-12] MEDS: OMEPRAZOLE 20 MG CAPSULE.DR GT SCH ×2 (05:20→18:00)
[2020-04-12 07:29] VITALS: BP 116/56
[2020-04-12] MEDS: HYDROGEN PEROXIDE 3% 118 ML BOTTLE TP SCH ×2 (07:37→21:30)
[2020-04-12] MEDS: METOPROLOL TARTRATE 25 MG TABLET GT SCH ×2 (09:00→21:22)
[2020-04-12] MEDS: LOSARTAN POTASSIUM 25 MG TABLET GT SCH (09:00)
[2020-04-12] MEDS: ASPIRIN 81 MG TAB.CHEW GT SCH (09:10)
[2020-04-12] MEDS: ACIDOPHILUS/BULGARICUS CHEW TAB GT SCH ×2 (09:11→21:22)
[2020-04-12] MEDS: NUTRISOURCE FIBER 4 GM PACKET GT SCH (09:13)
[2020-04-12] MEDS: COD LIVER OIL/ZINC OXIDE OINT 113 GM TUBE TP SCH ×2 (09:13→21:22)
[2020-04-12] MEDS: HEPARIN SODIUM,PORCINE 5,000 UNITS/ML VIAL SQ SCH ×2 (09:15→21:38)
[2020-04-12 09:43] LABS: CREATININE 0.7 mg/dL (0.6-1.3); MAGNESIUM 2.1 mg/dL (1.8-2.4); PHOSPHOROUS 3.6 mg/dL (2.5-4.9); POTASSIUM 4.3 mmol/L (3.5-5.1)
[2020-04-12 10:11] LABS: BASOPHILS # (AUTO) 0.1 K/uL (0.0-8.0); EOSINOPHILS # (AUTO) 0.4 K/uL (0.0-0.7); HEMATOCRIT 36.7 % (36.7-47.1); HEMOGLOBIN 12.9 g/dL (12.5-16.3); LYMPHOCYTES # (AUTO) 1.4 K/uL (20.0-40.0); LYMPHOCYTES % (AUTO) 24.9 % (20.5-51.5); MEAN CORPUSCULAR HEMOGLOBIN 33.5 uug (23.8-33.4); MEAN CORPUSCULAR HGB CONC 35 g/dL (32.5-36.3); MEAN CORPUSCULAR VOLUME 95.5 fL (73.0-96.2); MONOCYTES # (AUTO) 0.3 K/uL (2.0-10.0); MONOCYTES % (AUTO) 6.2 % (0.0-11.0); NEUTROPHILS # (AUTO) 3.4 K/uL (1.8-8.9); NEUTROPHILS % (AUTO) 60.9 % (38.5-71.5); PLATELET COUNT (AUTO) 260 K/uL (152-348); RED BLOOD CELL COUNT(AUTO) 3.84 MIL/uL (4.06-5.63); WHITE BLOOD COUNT (AUTO) 5.5 K/uL (3.6-10.2)
--- NOTE | 2020-04-12 18:10 | NUR ---
PT. NOTED WITH LEFT LOWER BACK WITH REDNESS AND INDURATION AND PAIN TO TOUCH ,PICTURE TAKEN AND DR. RODRIGO Arana WAS CALLED AND PT'S SON ROSALINDA WAS AWARE TOO.
[2020-04-12] MEDS: ATORVASTATIN 20 MG TABLET GT SCH (21:22)
[2020-04-12] MEDS: VITAL AF 1.2 1,000 ML LIQUID GT PRN (21:23)
[2020-04-12 22:28] VITALS: BP 117/56
[2020-04-13] MEDS: ALBUTEROL SULFATE 2.5 MG/3 ML NEBU NEB SCH ×4 (01:03→19:30)
[2020-04-13] MEDS: OMEPRAZOLE 20 MG CAPSULE.DR GT SCH ×2 (05:29→17:46)
[2020-04-13 07:26] VITALS: BP 123/61
[2020-04-13] MEDS: HYDROGEN PEROXIDE 3% 118 ML BOTTLE TP SCH ×2 (07:40→21:23)
[2020-04-13] MEDS: ASPIRIN 81 MG TAB.CHEW GT SCH (09:09)
[2020-04-13] MEDS: ACIDOPHILUS/BULGARICUS CHEW TAB GT SCH ×2 (09:10→21:54)
[2020-04-13] MEDS: LOSARTAN POTASSIUM 25 MG TABLET GT SCH (09:10)
[2020-04-13] MEDS: METOPROLOL TARTRATE 25 MG TABLET GT SCH ×2 (09:13→21:56)
[2020-04-13] MEDS: NUTRISOURCE FIBER 4 GM PACKET GT SCH (09:13)
[2020-04-13] MEDS: COD LIVER OIL/ZINC OXIDE OINT 113 GM TUBE TP SCH ×2 (09:13→21:56)
[2020-04-13] MEDS: HEPARIN SODIUM,PORCINE 5,000 UNITS/ML VIAL SQ SCH ×2 (09:16→21:00)
--- NOTE | 2020-04-13 16:14 | NUR ---
NEW ORDER WERE CARRIED OUT FROM DR. WALLACE FOR COVID 19 TEST PER [facility] REQUIREMENT AND PT'S SON ROSALINDA AWARE AND IN AGREEMENT.
[2020-04-13 20:15] VITALS: BP 132/51
[2020-04-13] MEDS: ATORVASTATIN 20 MG TABLET GT SCH (21:54)
[2020-04-13] MEDS: MULTIVIT, IRON, MIN NO. 8, FA TABLET GT SCH (21:56)
[2020-04-14] MEDS: ALBUTEROL SULFATE 2.5 MG/3 ML NEBU NEB SCH ×4 (00:54→19:30)
[2020-04-14] MEDS: OMEPRAZOLE 20 MG CAPSULE.DR GT SCH ×2 (05:58→18:13)
[2020-04-14 07:54] VITALS: BP 109/47
[2020-04-14] MEDS: HYDROGEN PEROXIDE 3% 118 ML BOTTLE TP SCH ×2 (08:14→21:06)
[2020-04-14] MEDS: ASPIRIN 81 MG TAB.CHEW GT SCH (09:00)
[2020-04-14] MEDS: LOSARTAN POTASSIUM 25 MG TABLET GT SCH (09:00)
[2020-04-14] MEDS: METOPROLOL TARTRATE 25 MG TABLET GT SCH ×2 (09:00→21:00)
[2020-04-14] MEDS: NUTRISOURCE FIBER 4 GM PACKET GT SCH (09:01)
[2020-04-14] MEDS: ACIDOPHILUS/BULGARICUS CHEW TAB GT SCH ×2 (09:01→21:39)
[2020-04-14] MEDS: HEPARIN SODIUM,PORCINE 5,000 UNITS/ML VIAL SQ SCH ×2 (09:03→20:45)
[2020-04-14] MEDS: COD LIVER OIL/ZINC OXIDE OINT 113 GM TUBE TP SCH ×2 (09:03→21:41)
[2020-04-14] MEDS: VITAL AF 1.2 1,000 ML LIQUID GT PRN (12:00)
--- NOTE | 2020-04-14 13:30 | NUR ---
SEEN AND EXAMINED BY ENOCH Reyes AND AWARE OF LEFT LOWER BACK SKIN LESION LIKE FORMING ABSCESS WITH NEW ORDERS CARRIED OUT,PT'S SON ROSALINDA AWARE AND IN AGREEMENT WITH TX.
--- NOTE | 2020-04-14 13:33 | NUR ---
PT' SON ROSALINDA AWRE OF NEGATIVE COVID 19 TEST FROM YESTERDAY.
--- NOTE | 2020-04-14 14:00 | NUR ---
PT. SEEN AND EXAMINED BY DR. WALLACE AND AWARE OF LEFT LOWER BACK ABSCESS INTACT NOT DRAINING AND NNO.
--- NOTE | 2020-04-14 16:38 | NUR ---
OBSERVED AT THIS TIME DURING REPOSITIONING THAT LEFT LOWER BACK ABSCESS RUPTURED DRIPPING BROWNISH PUS ,ODORLESS AND WARM COMPRESS APPLIED AND OBSERVED WHEN APPLYING SLIGHT PRESSURE PUS WAS DRAINING FROM AN AREA AWAY FROM ABSCESS TROUGH A HAIR FOLLICLE.DR WALLACE AND ENOCH Denton WERE CALLED AND MESSAGE WAS LEFT AND A NEW PICTURE TAKEN.
[2020-04-14] MEDS: ACETAMINOPHEN 650 MG/20 ML UDC- SA PATIENTS-PAIN ONLY GT PRN (17:00)
--- NOTE | 2020-04-14 17:06 | NUR ---
ENOCH Denton CALLED AND AWARE OF THE EVOLUTION OF LEFT LOWER ABSCESS MENTIONED ABOVE AND WITH NEW ORDERS CARRIED OUT.
--- NOTE | 2020-04-14 17:07 | NUR ---
MESSAGE LEFT TO PT'S SON ROASLINDA ABOUT LATEST CONDITION AND ORDERS.
--- NOTE | 2020-04-14 18:19 | NUR ---
RT F/A # 22 PERIPHERAL SALINE LOCK PLACED ON RT F/A AT FIRST ATTEMPT WITH GOOD BLOOD RETURN.
--- NOTE | 2020-04-14 18:21 | NUR ---
PT'S SON ROSALINDA CALLED BACK AND AWARE OF PT'S LATEST CONDITION AND TX AND IN AGREEMENT WITH ORDERS.
--- NOTE | 2020-04-14 19:00 | NUR ---
ENDORSED TO NOC SHIFT TO F/U VANCOMYCIN ORDERS AND CARE.
[2020-04-14 20:15] VITALS: BP 108/62
[2020-04-14] MEDS: ATORVASTATIN 20 MG TABLET GT SCH (21:39)
--- NOTE | 2020-04-14 22:42 | NUR ---
started on vancomycin 1gm iv for left lower back abscess, no adverse reaction noted, no respiratory distress noted, afebrile.
[2020-04-15] MEDS: ALBUTEROL SULFATE 2.5 MG/3 ML NEBU NEB SCH ×4 (01:15→19:11)
[2020-04-15] MEDS: OMEPRAZOLE 20 MG CAPSULE.DR GT SCH ×2 (05:34→17:08)
[2020-04-15 05:58] LABS: CREATININE 0.8 mg/dL (0.6-1.3)
[2020-04-15 07:38] VITALS: BP 110/49
[2020-04-15] MEDS: VANCOMYCIN IV 750 MG in IV DEXTROSE 5% 250 ML IV SCH ×2 (08:00→20:10)
[2020-04-15] MEDS: HYDROGEN PEROXIDE 3% 118 ML BOTTLE TP SCH ×2 (08:26→19:11)
[2020-04-15] MEDS: ASPIRIN 81 MG TAB.CHEW GT SCH (08:44)
[2020-04-15] MEDS: LOSARTAN POTASSIUM 25 MG TABLET GT SCH (08:44)
[2020-04-15] MEDS: METOPROLOL TARTRATE 25 MG TABLET GT SCH ×2 (08:45→20:34)
[2020-04-15] MEDS: ACIDOPHILUS/BULGARICUS CHEW TAB GT SCH ×2 (08:45→20:27)
[2020-04-15] MEDS: NUTRISOURCE FIBER 4 GM PACKET GT SCH (08:49)
[2020-04-15] MEDS: COD LIVER OIL/ZINC OXIDE OINT 113 GM TUBE TP SCH ×2 (08:50→20:32)
[2020-04-15] MEDS: HEPARIN SODIUM,PORCINE 5,000 UNITS/ML VIAL SQ SCH ×2 (08:50→20:35)
[2020-04-15] MEDS: VITAL AF 1.2 1,000 ML LIQUID GT PRN (11:54)
--- NOTE | 2020-04-15 11:58 | NUR ---
WOUND CARE CONSULT: PT SEEN FOR RAISED AREA TO LEFT LOWER BACK WITH PURULENT DRAINAGE. RECOMMEND SURGICAL CONSULT. DR LULU WALLACE NOTIFIED OF CONSULT REQUEST. RECOMMENDATIONS MADE FOR SKIN PROTECTION (DRY GAUZE TO AREA). SKIN TO BE KEPT CLEAN AND DRY. DISCUSSED WITH NURSING STAFF. WILL SEE PRN. IN AGREEMENT WITH PLAN OF CARE.
--- NOTE | 2020-04-15 12:05 | NUR ---
seen and examined by the wound personal care aid with new orders.new orders for surgical consult.
--- NOTE | 2020-04-15 13:30 | NUR ---
Seen by Marie Gonzalez with new orders .
--- NOTE | 2020-04-15 19:01 | NUR ---
continue on ivatb for L lower back abscess ,no adverse reaction noted,Consent obtained from Reji for the incision and drainage of back abscess.
[2020-04-15] MEDS: ALBUTEROL SULFATE 2.5 MG/3 ML NEBU NEB PRN (19:11)
[2020-04-15 19:49] VITALS: BP 121/54
[2020-04-15] MEDS: ATORVASTATIN 20 MG TABLET GT SCH (20:30)
[2020-04-15] MEDS: MULTIVIT, IRON, MIN NO. 8, FA TABLET GT SCH (20:32)
--- NOTE | 2020-04-15 23:00 | NUR ---
Afebrile, on Vancomycin IV for left lower back abcess, no adverse reactions noted. Turned and repositioned, kept clean and comfortable. Will continue monitor.
[2020-04-16] MEDS: ALBUTEROL SULFATE 2.5 MG/3 ML NEBU NEB SCH ×4 (00:36→20:00)
[2020-04-16] MEDS: VITAL AF 1.2 1,000 ML LIQUID GT PRN (03:47)
[2020-04-16] MEDS: OMEPRAZOLE 20 MG CAPSULE.DR GT SCH ×2 (05:40→17:15)
[2020-04-16 07:32] VITALS: BP 116/60
[2020-04-16 07:48] LABS: CREATININE 0.7 mg/dL (0.6-1.3); POTASSIUM 4.5 mmol/L (3.5-5.1)
[2020-04-16] MEDS: ASPIRIN 81 MG TAB.CHEW GT SCH (08:20)
[2020-04-16] MEDS: LOSARTAN POTASSIUM 25 MG TABLET GT SCH (08:22)
[2020-04-16] MEDS: ACIDOPHILUS/BULGARICUS CHEW TAB GT SCH ×2 (08:23→21:04)
[2020-04-16] MEDS: METOPROLOL TARTRATE 25 MG TABLET GT SCH ×2 (08:29→21:04)
[2020-04-16] MEDS: NUTRISOURCE FIBER 4 GM PACKET GT SCH (08:29)
[2020-04-16] MEDS: HEPARIN SODIUM,PORCINE 5,000 UNITS/ML VIAL SQ SCH ×2 (08:32→21:06)
[2020-04-16] MEDS: COD LIVER OIL/ZINC OXIDE OINT 113 GM TUBE TP SCH ×2 (08:35→21:08)
[2020-04-16] MEDS: VANCOMYCIN IV 750 MG in IV DEXTROSE 5% 250 ML IV SCH ×2 (09:00→20:00)
[2020-04-16] MEDS: HYDROGEN PEROXIDE 3% 118 ML BOTTLE TP SCH ×2 (09:21→21:31)
--- NOTE | 2020-04-16 17:00 | NUR ---
Continue on ivatb for lower back abscess,no adverse reaction noted.incision and drainage done by Marie Gonzalez on the lower back,wound culture sent,new tx ordered.
[2020-04-16 19:55] VITALS: BP 130/69
[2020-04-16] MEDS: ATORVASTATIN 20 MG TABLET GT SCH (21:04)
--- NOTE | 2020-04-16 23:05 | NUR ---
S/p I&D of left lower back abcess done earlier today, no bleeding noted from the wound, treatment done as ordered, kept skin clean and dry. On Vancomycin IV for left lower back abcess, no adverse reactions noted. Turned and repositioned, kept clean and comfortable, will continue monitor.
[2020-04-17] MEDS: VITAL AF 1.2 1,000 ML LIQUID GT PRN ×2 (00:52→19:04)
[2020-04-17] MEDS: ALBUTEROL SULFATE 2.5 MG/3 ML NEBU NEB SCH ×4 (02:25→19:54)
[2020-04-17] MEDS: OMEPRAZOLE 20 MG CAPSULE.DR GT SCH ×2 (05:25→17:25)
[2020-04-17 06:16] LABS: CREATININE 0.7 mg/dL (0.6-1.3); POTASSIUM 4.1 mmol/L (3.5-5.1)
[2020-04-17 07:32] VITALS: BP 120/64
[2020-04-17] MEDS: HYDROGEN PEROXIDE 3% 118 ML BOTTLE TP SCH ×2 (07:36→21:28)
[2020-04-17] MEDS: ASPIRIN 81 MG TAB.CHEW GT SCH (08:05)
[2020-04-17] MEDS: ACIDOPHILUS/BULGARICUS CHEW TAB GT SCH ×2 (08:06→21:08)
[2020-04-17] MEDS: LOSARTAN POTASSIUM 25 MG TABLET GT SCH (08:06)
[2020-04-17] MEDS: NUTRISOURCE FIBER 4 GM PACKET GT SCH (08:08)
[2020-04-17] MEDS: METOPROLOL TARTRATE 25 MG TABLET GT SCH ×2 (08:08→21:09)
[2020-04-17] MEDS: COD LIVER OIL/ZINC OXIDE OINT 113 GM TUBE TP SCH ×2 (08:09→21:10)
[2020-04-17] MEDS: HEPARIN SODIUM,PORCINE 5,000 UNITS/ML VIAL SQ SCH ×2 (08:09→21:10)
[2020-04-17] MEDS: VANCOMYCIN IV 750 MG in IV DEXTROSE 5% 250 ML IV SCH ×2 (08:52→20:00)
[2020-04-17 20:34] VITALS: BP 114/60
[2020-04-17] MEDS: ATORVASTATIN 20 MG TABLET GT SCH (21:08)
[2020-04-17] MEDS: MULTIVIT, IRON, MIN NO. 8, FA TABLET GT SCH (21:09)
[2020-04-18] MEDS: ALBUTEROL SULFATE 2.5 MG/3 ML NEBU NEB SCH ×4 (00:50→19:14)
--- NOTE | 2020-04-18 04:26 | NUR ---
Post I&D of left lower back abcess yesterday, no bleeding noted from the wound, treatment done as ordered. On Vancomycin IV for left lower back abcess, no adverse reactions noted. Turned and repositioned, kept clean and comfortable, will continue monitor. Awaiting for results of wound cultures in oder to Call Ti DAVIDSON ) for ID consult.
[2020-04-18] MEDS: OMEPRAZOLE 20 MG CAPSULE.DR GT SCH ×2 (05:52→18:51)
[2020-04-18 07:35] VITALS: BP 120/63
[2020-04-18 07:37] LABS: CREATININE 0.7 mg/dL (0.6-1.3); POTASSIUM 4.4 mmol/L (3.5-5.1)
[2020-04-18] MEDS: ASPIRIN 81 MG TAB.CHEW GT SCH (08:22)
[2020-04-18] MEDS: LOSARTAN POTASSIUM 25 MG TABLET GT SCH (08:24)
[2020-04-18] MEDS: METOPROLOL TARTRATE 25 MG TABLET GT SCH ×2 (08:27→21:00)
[2020-04-18] MEDS: ACIDOPHILUS/BULGARICUS CHEW TAB GT SCH ×2 (08:27→21:02)
[2020-04-18] MEDS: NUTRISOURCE FIBER 4 GM PACKET GT SCH (08:28)
[2020-04-18] MEDS: HEPARIN SODIUM,PORCINE 5,000 UNITS/ML VIAL SQ SCH ×2 (08:30→21:03)
[2020-04-18] MEDS: COD LIVER OIL/ZINC OXIDE OINT 113 GM TUBE TP SCH ×2 (08:30→21:03)
[2020-04-18] MEDS: HYDROGEN PEROXIDE 3% 118 ML BOTTLE TP SCH ×2 (08:36→19:14)
[2020-04-18] MEDS: VANCOMYCIN IV 750 MG in IV DEXTROSE 5% 250 ML IV SCH ×2 (08:44→20:30)
--- NOTE | 2020-04-18 15:30 | NUR ---
NOTIFIED DR GUTIERREZ OF LEFT LOWER BACK ABSCESS CULTURE RESULTED IN NO GROWTH. NEW ORDERS GIVEN NOTED AND CARRIED OUT.
[2020-04-18] MEDS: VITAL AF 1.2 1,000 ML LIQUID GT PRN (18:15)
[2020-04-18 20:00] VITALS: BP 123/55
[2020-04-18] MEDS: ATORVASTATIN 20 MG TABLET GT SCH (21:02)
[2020-04-19] MEDS: ALBUTEROL SULFATE 2.5 MG/3 ML NEBU NEB SCH ×4 (00:41→19:40)
[2020-04-19] MEDS: OMEPRAZOLE 20 MG CAPSULE.DR GT SCH ×2 (05:15→17:20)
[2020-04-19 07:31] VITALS: BP 110/57
[2020-04-19] MEDS: VANCOMYCIN IV 750 MG in IV DEXTROSE 5% 250 ML IV SCH ×2 (08:00→20:45)
[2020-04-19] MEDS: ASPIRIN 81 MG TAB.CHEW GT SCH (08:20)
[2020-04-19] MEDS: ACIDOPHILUS/BULGARICUS CHEW TAB GT SCH ×2 (08:21→21:00)
[2020-04-19] MEDS: METOPROLOL TARTRATE 25 MG TABLET GT SCH ×2 (08:21→21:00)
[2020-04-19] MEDS: LOSARTAN POTASSIUM 25 MG TABLET GT SCH (08:21)
[2020-04-19] MEDS: NUTRISOURCE FIBER 4 GM PACKET GT SCH (08:22)
[2020-04-19] MEDS: COD LIVER OIL/ZINC OXIDE OINT 113 GM TUBE TP SCH ×2 (08:22→21:02)
[2020-04-19] MEDS: HEPARIN SODIUM,PORCINE 5,000 UNITS/ML VIAL SQ SCH ×2 (08:22→21:02)
[2020-04-19] MEDS: ACETAMINOPHEN 650 MG/20 ML UDC- SA PATIENTS-PAIN ONLY GT PRN (08:24)
[2020-04-19] MEDS: HYDROGEN PEROXIDE 3% 118 ML BOTTLE TP SCH ×2 (09:00→21:25)
[2020-04-19 09:43] LABS: CREATININE 0.7 mg/dL (0.6-1.3); POTASSIUM 4.4 mmol/L (3.5-5.1)
[2020-04-19] MEDS: VITAL AF 1.2 1,000 ML LIQUID GT PRN (17:14)
[2020-04-19 20:49] VITALS: BP 116/57
[2020-04-19] MEDS: MULTIVIT, IRON, MIN NO. 8, FA TABLET GT SCH (21:00)
[2020-04-19] MEDS: ATORVASTATIN 20 MG TABLET GT SCH (21:00)
[2020-04-20] MEDS: ALBUTEROL SULFATE 2.5 MG/3 ML NEBU NEB SCH ×4 (01:18→19:30)
[2020-04-20] MEDS: OMEPRAZOLE 20 MG CAPSULE.DR GT SCH ×2 (06:01→17:31)
[2020-04-20 07:33] LABS: CREATININE 0.8 mg/dL (0.6-1.3); POTASSIUM 4.5 mmol/L (3.5-5.1); VANCOMYCIN,TROUGH 15.5 ug/mL (12.0-20.0)
[2020-04-20 07:57] VITALS: BP 128/66
[2020-04-20] MEDS: VANCOMYCIN IV 750 MG in IV DEXTROSE 5% 250 ML IV SCH ×2 (08:00→20:57)
[2020-04-20] MEDS: ASPIRIN 81 MG TAB.CHEW GT SCH (08:20)
[2020-04-20] MEDS: LOSARTAN POTASSIUM 25 MG TABLET GT SCH (08:20)
[2020-04-20] MEDS: ACIDOPHILUS/BULGARICUS CHEW TAB GT SCH ×2 (08:21→20:32)
[2020-04-20] MEDS: METOPROLOL TARTRATE 25 MG TABLET GT SCH ×2 (08:23→20:33)
[2020-04-20] MEDS: NUTRISOURCE FIBER 4 GM PACKET GT SCH (08:24)
[2020-04-20] MEDS: COD LIVER OIL/ZINC OXIDE OINT 113 GM TUBE TP SCH ×2 (08:24→20:34)
[2020-04-20] MEDS: HEPARIN SODIUM,PORCINE 5,000 UNITS/ML VIAL SQ SCH ×2 (08:24→20:36)
[2020-04-20] MEDS: HYDROGEN PEROXIDE 3% 118 ML BOTTLE TP SCH ×2 (09:23→21:06)
[2020-04-20] MEDS: VITAL AF 1.2 1,000 ML LIQUID GT PRN (17:31)
[2020-04-20 18:20] VITALS: BP 118/60
--- NOTE | 2020-04-20 18:41 | NUR ---
Covid 19 test done today.per [facility] requirement.Responsible libertarian notified.
[2020-04-20 19:27] VITALS: BP 118/60
[2020-04-20] MEDS: ATORVASTATIN 20 MG TABLET GT SCH (20:33)
[2020-04-21] MEDS: ALBUTEROL SULFATE 2.5 MG/3 ML NEBU NEB SCH ×4 (01:00→19:30)
--- NOTE | 2020-04-21 04:41 | NUR ---
Patient continue to receive Vancomycin 750mg IV Q12 hrs , infused via PIV on left hand. Site patent without signs of infiltration and infection. IV ATB continues for a total of 7 days for mid back abcess. S/P incision and drainage on 04/16/2020. Culture resulted no growth.
[2020-04-21] MEDS: OMEPRAZOLE 20 MG CAPSULE.DR GT SCH ×2 (05:29→17:31)
[2020-04-21 06:06] LABS: CREATININE 0.7 mg/dL (0.6-1.3); POTASSIUM 4.2 mmol/L (3.5-5.1)
[2020-04-21 07:32] VITALS: BP 130/80
[2020-04-21] MEDS: VANCOMYCIN IV 750 MG in IV DEXTROSE 5% 250 ML IV SCH (08:28)
[2020-04-21] MEDS: HYDROGEN PEROXIDE 3% 118 ML BOTTLE TP SCH ×2 (08:28→21:21)
[2020-04-21] MEDS: ASPIRIN 81 MG TAB.CHEW GT SCH (08:47)
[2020-04-21] MEDS: NUTRISOURCE FIBER 4 GM PACKET GT SCH (08:48)
[2020-04-21] MEDS: LOSARTAN POTASSIUM 25 MG TABLET GT SCH (08:48)
[2020-04-21] MEDS: ACIDOPHILUS/BULGARICUS CHEW TAB GT SCH ×2 (08:48→20:02)
[2020-04-21] MEDS: METOPROLOL TARTRATE 25 MG TABLET GT SCH ×2 (08:48→20:03)
[2020-04-21] MEDS: COD LIVER OIL/ZINC OXIDE OINT 113 GM TUBE TP SCH ×2 (08:49→20:04)
[2020-04-21] MEDS: HEPARIN SODIUM,PORCINE 5,000 UNITS/ML VIAL SQ SCH ×2 (08:49→20:04)
--- NOTE | 2020-04-21 12:00 | NUR ---
SEEN BY ENOCH Reyes AND WITH NNO.
[2020-04-21] MEDS: VITAL AF 1.2 1,000 ML LIQUID GT PRN (14:39)
--- NOTE | 2020-04-21 17:45 | NUR ---
PTS SON ROSALINDA AWARE THAT PT'. IS NEGATIVE FOR COVID 19 TEST.
[2020-04-21] MEDS: ATORVASTATIN 20 MG TABLET GT SCH (20:02)
[2020-04-21] MEDS: MULTIVIT, IRON, MIN NO. 8, FA TABLET GT SCH (20:03)
[2020-04-21 20:13] VITALS: BP 131/59
[2020-04-22] MEDS: ALBUTEROL SULFATE 2.5 MG/3 ML NEBU NEB SCH ×4 (01:15→19:43)
[2020-04-22] MEDS: OMEPRAZOLE 20 MG CAPSULE.DR GT SCH ×2 (05:46→17:04)
[2020-04-22] MEDS: VITAL AF 1.2 1,000 ML LIQUID GT PRN (06:50)
[2020-04-22 07:33] VITALS: BP 110/50
[2020-04-22] MEDS: ASPIRIN 81 MG TAB.CHEW GT SCH (08:35)
[2020-04-22] MEDS: ACIDOPHILUS/BULGARICUS CHEW TAB GT SCH ×2 (08:36→21:00)
[2020-04-22] MEDS: LOSARTAN POTASSIUM 25 MG TABLET GT SCH (08:36)
[2020-04-22] MEDS: NUTRISOURCE FIBER 4 GM PACKET GT SCH (08:37)
[2020-04-22] MEDS: METOPROLOL TARTRATE 25 MG TABLET GT SCH ×2 (08:37→21:00)
[2020-04-22] MEDS: HYDROGEN PEROXIDE 3% 118 ML BOTTLE TP SCH ×2 (08:39→21:19)
[2020-04-22] MEDS: COD LIVER OIL/ZINC OXIDE OINT 113 GM TUBE TP SCH ×2 (08:39→21:00)
[2020-04-22] MEDS: HEPARIN SODIUM,PORCINE 5,000 UNITS/ML VIAL SQ SCH ×2 (08:39→21:00)
[2020-04-22 20:07] VITALS: BP 136/68
[2020-04-22] MEDS: ATORVASTATIN 20 MG TABLET GT SCH (21:00)
[2020-04-23] MEDS: ALBUTEROL SULFATE 2.5 MG/3 ML NEBU NEB SCH ×4 (01:03→19:07)
[2020-04-23] MEDS: VITAL AF 1.2 1,000 ML LIQUID GT PRN ×2 (01:21→02:40)
[2020-04-23] MEDS: OMEPRAZOLE 20 MG CAPSULE.DR GT SCH ×2 (06:06→17:12)
[2020-04-23 07:43] VITALS: BP 115/64
[2020-04-23] MEDS: HYDROGEN PEROXIDE 3% 118 ML BOTTLE TP SCH ×2 (07:55→19:07)
[2020-04-23] MEDS: ASPIRIN 81 MG TAB.CHEW GT SCH (08:16)
[2020-04-23] MEDS: METOPROLOL TARTRATE 25 MG TABLET GT SCH ×2 (08:18→20:32)
[2020-04-23] MEDS: LOSARTAN POTASSIUM 25 MG TABLET GT SCH (08:18)
[2020-04-23] MEDS: ACIDOPHILUS/BULGARICUS CHEW TAB GT SCH ×2 (08:18→20:32)
[2020-04-23] MEDS: HEPARIN SODIUM,PORCINE 5,000 UNITS/ML VIAL SQ SCH ×2 (08:19→21:49)
[2020-04-23] MEDS: NUTRISOURCE FIBER 4 GM PACKET GT SCH (08:19)
[2020-04-23] MEDS: COD LIVER OIL/ZINC OXIDE OINT 113 GM TUBE TP SCH ×2 (08:20→20:33)
[2020-04-23 19:53] VITALS: BP 109/71
[2020-04-23] MEDS: ATORVASTATIN 20 MG TABLET GT SCH (20:32)
[2020-04-23] MEDS: MULTIVIT, IRON, MIN NO. 8, FA TABLET GT SCH (20:33)
[2020-04-24] MEDS: ALBUTEROL SULFATE 2.5 MG/3 ML NEBU NEB SCH ×4 (00:43→19:35)
[2020-04-24] MEDS: OMEPRAZOLE 20 MG CAPSULE.DR GT SCH ×2 (06:28→18:15)
[2020-04-24 07:46] VITALS: BP 120/64
[2020-04-24] MEDS: ASPIRIN 81 MG TAB.CHEW GT SCH (08:29)
[2020-04-24] MEDS: LOSARTAN POTASSIUM 25 MG TABLET GT SCH (08:29)
[2020-04-24] MEDS: ACIDOPHILUS/BULGARICUS CHEW TAB GT SCH ×2 (08:30→20:23)
[2020-04-24] MEDS: METOPROLOL TARTRATE 25 MG TABLET GT SCH ×2 (08:31→20:30)
[2020-04-24] MEDS: NUTRISOURCE FIBER 4 GM PACKET GT SCH (08:31)
[2020-04-24] MEDS: HEPARIN SODIUM,PORCINE 5,000 UNITS/ML VIAL SQ SCH ×2 (08:32→20:29)
[2020-04-24] MEDS: COD LIVER OIL/ZINC OXIDE OINT 113 GM TUBE TP SCH ×2 (08:34→20:30)
[2020-04-24] MEDS: HYDROGEN PEROXIDE 3% 118 ML BOTTLE TP SCH ×2 (09:55→21:00)
--- NOTE | 2020-04-24 13:24 | NUR ---
GUTIERREZ called patient's [id number] Gin [phone] and left her a voicemail message stating that the next IDT meeting for the patient has been scheduled for Tuesday04/29/2020 at 11am. GUTIERREZ asked Gin to call this SW back and let this SW know if Gin would like to participate in the meeting through speaker phone.
--- NOTE | 2020-04-24 16:27 | NUR ---
SW received a voicemail message from patient's [id number] Gin, stating that she would like to participate in the IDT meeting on 04/29/2020. SW to call Gin on speakerphone during the meeting.
[2020-04-24 19:51] VITALS: BP 121/55
[2020-04-24] MEDS: ATORVASTATIN 20 MG TABLET GT SCH (20:24)
[2020-04-24] MEDS: VITAL AF 1.2 1,000 ML LIQUID GT PRN (22:31)
[2020-04-25] MEDS: ALBUTEROL SULFATE 2.5 MG/3 ML NEBU NEB SCH ×4 (00:35→19:50)
[2020-04-25] MEDS: OMEPRAZOLE 20 MG CAPSULE.DR GT SCH ×2 (05:24→17:51)
[2020-04-25 07:25] VITALS: BP 120/61
[2020-04-25] MEDS: ASPIRIN 81 MG TAB.CHEW GT SCH (08:26)
[2020-04-25] MEDS: ACIDOPHILUS/BULGARICUS CHEW TAB GT SCH ×2 (08:27→21:44)
[2020-04-25] MEDS: LOSARTAN POTASSIUM 25 MG TABLET GT SCH (08:27)
[2020-04-25] MEDS: NUTRISOURCE FIBER 4 GM PACKET GT SCH (08:31)
[2020-04-25] MEDS: HEPARIN SODIUM,PORCINE 5,000 UNITS/ML VIAL SQ SCH ×2 (08:31→21:51)
[2020-04-25] MEDS: COD LIVER OIL/ZINC OXIDE OINT 113 GM TUBE TP SCH ×2 (08:31→21:46)
[2020-04-25] MEDS: METOPROLOL TARTRATE 25 MG TABLET GT SCH ×2 (08:31→21:46)
[2020-04-25] MEDS: ACETAMINOPHEN 650 MG/20 ML UDC- SA PATIENTS-PAIN ONLY GT PRN (08:34)
[2020-04-25] MEDS: HYDROGEN PEROXIDE 3% 118 ML BOTTLE TP SCH ×2 (09:08→21:19)
[2020-04-25 14:14] LABS: BASOPHILS % (AUTO) 0.4 % (0.0-2.0); EOSINOPHILS # (AUTO) 0.5 K/uL (0.0-0.7); EOSINOPHILS % (AUTO) 5.9 % (0.0-7.0); HEMATOCRIT 36.6 % (36.7-47.1); HEMOGLOBIN 12.7 g/dL (12.5-16.3); LYMPHOCYTES # (AUTO) 1.3 K/uL (20.0-40.0); MEAN CORPUSCULAR HEMOGLOBIN 33.2 uug (23.8-33.4); MEAN CORPUSCULAR HGB CONC 35 g/dL (32.5-36.3); MEAN CORPUSCULAR VOLUME 96.2 fL (73.0-96.2); MONOCYTES # (AUTO) 0.4 K/uL (2.0-10.0); MONOCYTES % (AUTO) 4.6 % (0.0-11.0); NEUTROPHILS # (AUTO) 6.9 K/uL (1.8-8.9); NEUTROPHILS % (AUTO) 75.1 % (38.5-71.5); PLATELET COUNT (AUTO) 292 K/uL (152-348); RED BLOOD CELL COUNT(AUTO) 3.81 MIL/uL (4.06-5.63); WHITE BLOOD COUNT (AUTO) 9.1 K/uL (3.6-10.2)
[2020-04-25 14:56] LABS: CREATININE 0.7 mg/dL (0.6-1.3); MAGNESIUM 2.1 mg/dL (1.8-2.4); PHOSPHOROUS 3.6 mg/dL (2.5-4.9); POTASSIUM 4.2 mmol/L (3.5-5.1)
[2020-04-25 19:35] VITALS: BP 111/52
[2020-04-25] MEDS: VITAL AF 1.2 1,000 ML LIQUID GT PRN (21:41)
[2020-04-25] MEDS: ATORVASTATIN 20 MG TABLET GT SCH (21:44)
[2020-04-25] MEDS: MULTIVIT, IRON, MIN NO. 8, FA TABLET GT SCH (21:46)
[2020-04-26] MEDS: ALBUTEROL SULFATE 2.5 MG/3 ML NEBU NEB SCH ×4 (00:55→19:31)
[2020-04-26] MEDS: OMEPRAZOLE 20 MG CAPSULE.DR GT SCH ×2 (05:31→17:42)
[2020-04-26] MEDS: ACETAMINOPHEN 650 MG/20 ML UDC- SA PATIENTS-PAIN ONLY GT PRN (05:32)
[2020-04-26 07:26] VITALS: BP 110/64
[2020-04-26] MEDS: ASPIRIN 81 MG TAB.CHEW GT SCH (08:28)
[2020-04-26] MEDS: COD LIVER OIL/ZINC OXIDE OINT 113 GM TUBE TP SCH ×2 (08:31→20:34)
[2020-04-26] MEDS: NUTRISOURCE FIBER 4 GM PACKET GT SCH (08:31)
[2020-04-26] MEDS: HEPARIN SODIUM,PORCINE 5,000 UNITS/ML VIAL SQ SCH ×2 (08:31→20:37)
[2020-04-26] MEDS: LOSARTAN POTASSIUM 25 MG TABLET GT SCH (08:31)
[2020-04-26] MEDS: ACIDOPHILUS/BULGARICUS CHEW TAB GT SCH ×2 (08:31→20:33)
[2020-04-26] MEDS: METOPROLOL TARTRATE 25 MG TABLET GT SCH ×2 (08:31→20:34)
[2020-04-26] MEDS: HYDROGEN PEROXIDE 3% 118 ML BOTTLE TP SCH ×2 (08:59→21:21)
[2020-04-26] MEDS: ATORVASTATIN 20 MG TABLET GT SCH (20:33)
[2020-04-26 20:35] VITALS: BP 121/68
[2020-04-27] MEDS: ALBUTEROL SULFATE 2.5 MG/3 ML NEBU NEB SCH ×4 (01:14→19:35)
[2020-04-27] MEDS: OMEPRAZOLE 20 MG CAPSULE.DR GT SCH ×2 (05:40→17:21)
[2020-04-27] MEDS: HYDROGEN PEROXIDE 3% 118 ML BOTTLE TP SCH ×2 (07:16→20:51)
[2020-04-27 08:00] VITALS: BP 117/44
[2020-04-27] MEDS: ASPIRIN 81 MG TAB.CHEW GT SCH (08:46)
[2020-04-27] MEDS: METOPROLOL TARTRATE 25 MG TABLET GT SCH ×2 (08:55→21:34)
[2020-04-27] MEDS: ACIDOPHILUS/BULGARICUS CHEW TAB GT SCH ×2 (08:55→21:33)
[2020-04-27] MEDS: LOSARTAN POTASSIUM 25 MG TABLET GT SCH (08:55)
[2020-04-27] MEDS: NUTRISOURCE FIBER 4 GM PACKET GT SCH (08:56)
[2020-04-27] MEDS: COD LIVER OIL/ZINC OXIDE OINT 113 GM TUBE TP SCH ×2 (08:56→21:33)
[2020-04-27] MEDS: HEPARIN SODIUM,PORCINE 5,000 UNITS/ML VIAL SQ SCH ×2 (08:57→21:37)
[2020-04-27] MEDS: MULTIVIT, IRON, MIN NO. 8, FA TABLET GT SCH (21:33)
[2020-04-27] MEDS: ATORVASTATIN 20 MG TABLET GT SCH (21:33)
[2020-04-27 22:00] VITALS: BP 110/55
[2020-04-28] MEDS: ALBUTEROL SULFATE 2.5 MG/3 ML NEBU NEB SCH ×4 (01:15→19:25)
[2020-04-28] MEDS: OMEPRAZOLE 20 MG CAPSULE.DR GT SCH ×2 (06:00→17:29)
--- NOTE | 2020-04-28 07:12 | NUR ---
Will test patient for COVID-19 today.
[2020-04-28 07:30] VITALS: BP 121/59
[2020-04-28] MEDS: ASPIRIN 81 MG TAB.CHEW GT SCH (09:09)
[2020-04-28] MEDS: LOSARTAN POTASSIUM 25 MG TABLET GT SCH (09:10)
[2020-04-28] MEDS: ACIDOPHILUS/BULGARICUS CHEW TAB GT SCH ×2 (09:10→20:41)
[2020-04-28] MEDS: NUTRISOURCE FIBER 4 GM PACKET GT SCH (09:10)
[2020-04-28] MEDS: COD LIVER OIL/ZINC OXIDE OINT 113 GM TUBE TP SCH ×2 (09:10→20:42)
[2020-04-28] MEDS: METOPROLOL TARTRATE 25 MG TABLET GT SCH ×2 (09:10→20:41)
[2020-04-28] MEDS: HEPARIN SODIUM,PORCINE 5,000 UNITS/ML VIAL SQ SCH ×2 (09:11→20:13)
[2020-04-28] MEDS: HYDROGEN PEROXIDE 3% 118 ML BOTTLE TP SCH ×2 (09:39→19:25)
--- NOTE | 2020-04-28 16:30 | NUR ---
SEEN BY ENOCH Reyes AND WITH JEFFREYO
--- NOTE | 2020-04-28 17:14 | NUR ---
NO CODID 19 TEST REQUIRED TODAY BY [facility] AND PT'S SON ROSALINDA AWARE.
[2020-04-28 20:00] VITALS: BP 109/55
[2020-04-28] MEDS: ATORVASTATIN 20 MG TABLET GT SCH (20:41)
[2020-04-29] MEDS: ALBUTEROL SULFATE 2.5 MG/3 ML NEBU NEB SCH ×4 (01:20→19:30)
[2020-04-29] MEDS: OMEPRAZOLE 20 MG CAPSULE.DR GT SCH ×2 (06:00→17:19)
[2020-04-29] MEDS: HYDROGEN PEROXIDE 3% 118 ML BOTTLE TP SCH ×2 (07:25→21:12)
[2020-04-29] MEDS: VITAL AF 1.2 1,000 ML LIQUID GT PRN (07:26)
[2020-04-29 07:41] VITALS: BP 119/46
[2020-04-29] MEDS: LOSARTAN POTASSIUM 25 MG TABLET GT SCH (09:00)
[2020-04-29] MEDS: METOPROLOL TARTRATE 25 MG TABLET GT SCH ×2 (09:00→21:00)
[2020-04-29] MEDS: ACIDOPHILUS/BULGARICUS CHEW TAB GT SCH ×2 (09:10→21:42)
[2020-04-29] MEDS: ASPIRIN 81 MG TAB.CHEW GT SCH (09:10)
[2020-04-29] MEDS: NUTRISOURCE FIBER 4 GM PACKET GT SCH (09:11)
[2020-04-29] MEDS: HEPARIN SODIUM,PORCINE 5,000 UNITS/ML VIAL SQ SCH ×2 (09:12→21:45)
[2020-04-29] MEDS: COD LIVER OIL/ZINC OXIDE OINT 113 GM TUBE TP SCH ×2 (09:12→21:45)
--- NOTE | 2020-04-29 14:06 | NUR ---
INTERDISCIPLINARY PLAN OF CARE CONFERENCE was held today. Patient's [id number] Gin participated in the meeting through speaker phone. Dr. Leary and the Interdisciplinary team reviewed the current plan of care in detail. RN reported on the patient's medical condition. No major changes in patient's condition were reported by RN or by the other disciplines. See RN IDT conference notes. See also all other disciplines IDT notes and physician's progress notes for additional details. Gin expressed not having any questions or concerns at this time.
[2020-04-29 20:00] VITALS: BP 129/64
[2020-04-29] MEDS: ATORVASTATIN 20 MG TABLET GT SCH (21:43)
[2020-04-29] MEDS: MULTIVIT, IRON, MIN NO. 8, FA TABLET GT SCH (21:44)
[2020-04-30] MEDS: ALBUTEROL SULFATE 2.5 MG/3 ML NEBU NEB SCH ×4 (00:52→19:31)
[2020-04-30] MEDS: VITAL AF 1.2 1,000 ML LIQUID GT PRN (03:19)
[2020-04-30] MEDS: OMEPRAZOLE 20 MG CAPSULE.DR GT SCH ×2 (05:55→17:00)
[2020-04-30 07:30] VITALS: BP 127/42
[2020-04-30] MEDS: ASPIRIN 81 MG TAB.CHEW GT SCH (08:12)
[2020-04-30] MEDS: LOSARTAN POTASSIUM 25 MG TABLET GT SCH (08:14)
[2020-04-30] MEDS: METOPROLOL TARTRATE 25 MG TABLET GT SCH ×2 (08:14→20:32)
[2020-04-30] MEDS: ACIDOPHILUS/BULGARICUS CHEW TAB GT SCH ×2 (08:14→20:31)
[2020-04-30] MEDS: NUTRISOURCE FIBER 4 GM PACKET GT SCH (08:15)
[2020-04-30] MEDS: COD LIVER OIL/ZINC OXIDE OINT 113 GM TUBE TP SCH ×2 (08:15→20:33)
[2020-04-30] MEDS: HEPARIN SODIUM,PORCINE 5,000 UNITS/ML VIAL SQ SCH ×2 (08:19→20:33)
[2020-04-30] MEDS: HYDROGEN PEROXIDE 3% 118 ML BOTTLE TP SCH ×2 (09:15→20:48)
[2020-04-30 20:00] VITALS: BP 129/66
[2020-04-30 20:15] VITALS: BP 129/66
[2020-04-30] MEDS: ATORVASTATIN 20 MG TABLET GT SCH (20:31)
[2020-05-01] MEDS: ALBUTEROL SULFATE 2.5 MG/3 ML NEBU NEB SCH ×4 (01:17→19:14)
[2020-05-01] MEDS: VITAL AF 1.2 1,000 ML LIQUID GT PRN ×2 (01:29→22:39)
[2020-05-01] MEDS: OMEPRAZOLE 20 MG CAPSULE.DR GT SCH ×2 (05:28→17:18)
[2020-05-01 06:42] LABS: CREATININE 0.7 mg/dL (0.6-1.3); MAGNESIUM 2.1 mg/dL (1.8-2.4); PHOSPHOROUS 3.2 mg/dL (2.5-4.9); URIC ACID 2.8 mg/dL (3.5-7.2)
[2020-05-01 06:55] LABS: THYROID STIMULATING HORMONE 1.656 mIU/mL (0.358-3.740)
[2020-05-01 07:15] VITALS: BP 113/69
[2020-05-01] MEDS: HYDROGEN PEROXIDE 3% 118 ML BOTTLE TP SCH ×2 (07:41→19:14)
[2020-05-01] MEDS: LOSARTAN POTASSIUM 25 MG TABLET GT SCH (09:00)
[2020-05-01] MEDS: NUTRISOURCE FIBER 4 GM PACKET GT SCH (09:01)
[2020-05-01] MEDS: ASPIRIN 81 MG TAB.CHEW GT SCH (09:01)
[2020-05-01] MEDS: ACIDOPHILUS/BULGARICUS CHEW TAB GT SCH ×2 (09:01→20:30)
[2020-05-01] MEDS: METOPROLOL TARTRATE 25 MG TABLET GT SCH ×2 (09:01→20:30)
[2020-05-01] MEDS: COD LIVER OIL/ZINC OXIDE OINT 113 GM TUBE TP SCH ×2 (09:02→20:30)
[2020-05-01] MEDS: HEPARIN SODIUM,PORCINE 5,000 UNITS/ML VIAL SQ SCH ×2 (09:02→20:31)
--- NOTE | 2020-05-01 18:50 | NUR ---
SEEN AND EXAMINED BY DIAMOND FONTAINE. CONTINUE PACKING ORDERED.
[2020-05-01 20:00] VITALS: BP 107/65
[2020-05-01 20:08] VITALS: BP 107/65
[2020-05-01] MEDS: ATORVASTATIN 20 MG TABLET GT SCH (20:30)
[2020-05-01] MEDS: MULTIVIT, IRON, MIN NO. 8, FA TABLET GT SCH (20:30)
[2020-05-02] MEDS: ALBUTEROL SULFATE 2.5 MG/3 ML NEBU NEB SCH ×4 (00:35→19:45)
[2020-05-02] MEDS: OMEPRAZOLE 20 MG CAPSULE.DR GT SCH ×2 (06:20→17:54)
[2020-05-02 07:39] VITALS: BP 99/42
[2020-05-02] MEDS: ASPIRIN 81 MG TAB.CHEW GT SCH (08:57)
[2020-05-02] MEDS: HYDROGEN PEROXIDE 3% 118 ML BOTTLE TP SCH ×2 (08:58→21:18)
[2020-05-02] MEDS: METOPROLOL TARTRATE 25 MG TABLET GT SCH ×2 (09:00→20:22)
[2020-05-02] MEDS: LOSARTAN POTASSIUM 25 MG TABLET GT SCH (09:00)
[2020-05-02] MEDS: ACIDOPHILUS/BULGARICUS CHEW TAB GT SCH ×2 (09:05→20:22)
[2020-05-02] MEDS: HEPARIN SODIUM,PORCINE 5,000 UNITS/ML VIAL SQ SCH ×2 (09:06→20:22)
[2020-05-02] MEDS: COD LIVER OIL/ZINC OXIDE OINT 113 GM TUBE TP SCH ×2 (09:06→20:22)
[2020-05-02] MEDS: NUTRISOURCE FIBER 4 GM PACKET GT SCH (09:06)
[2020-05-02] MEDS: VITAL AF 1.2 1,000 ML LIQUID GT PRN (18:07)
[2020-05-02 20:00] VITALS: BP 109/68
[2020-05-02] MEDS: ATORVASTATIN 20 MG TABLET GT SCH (20:22)
[2020-05-03] MEDS: ALBUTEROL SULFATE 2.5 MG/3 ML NEBU NEB SCH ×4 (00:53→19:06)
[2020-05-03] MEDS: OMEPRAZOLE 20 MG CAPSULE.DR GT SCH ×2 (05:19→17:06)
[2020-05-03 07:49] VITALS: BP 128/60
[2020-05-03] MEDS: ASPIRIN 81 MG TAB.CHEW GT SCH (08:03)
[2020-05-03] MEDS: LOSARTAN POTASSIUM 25 MG TABLET GT SCH (08:03)
[2020-05-03] MEDS: ACIDOPHILUS/BULGARICUS CHEW TAB GT SCH ×2 (08:03→20:19)
[2020-05-03] MEDS: METOPROLOL TARTRATE 25 MG TABLET GT SCH ×2 (08:04→20:19)
[2020-05-03] MEDS: NUTRISOURCE FIBER 4 GM PACKET GT SCH (08:04)
[2020-05-03] MEDS: COD LIVER OIL/ZINC OXIDE OINT 113 GM TUBE TP SCH ×2 (08:19→20:19)
[2020-05-03] MEDS: HEPARIN SODIUM,PORCINE 5,000 UNITS/ML VIAL SQ SCH ×2 (08:19→20:15)
[2020-05-03] MEDS: HYDROGEN PEROXIDE 3% 118 ML BOTTLE TP SCH ×2 (09:01→19:06)
[2020-05-03] MEDS: VITAL AF 1.2 1,000 ML LIQUID GT PRN (13:23)
[2020-05-03 20:08] VITALS: BP 130/45
[2020-05-03] MEDS: MULTIVIT, IRON, MIN NO. 8, FA TABLET GT SCH (20:19)
[2020-05-03] MEDS: ATORVASTATIN 20 MG TABLET GT SCH (20:19)
[2020-05-03] MEDS: ACETAMINOPHEN 650 MG/20 ML UDC- SA PATIENTS-PAIN ONLY GT PRN (20:20)
[2020-05-04] MEDS: ALBUTEROL SULFATE 2.5 MG/3 ML NEBU NEB SCH ×4 (00:53→19:10)
[2020-05-04] MEDS: OMEPRAZOLE 20 MG CAPSULE.DR GT SCH ×2 (05:06→17:23)
[2020-05-04 07:38] VITALS: BP 102/42
[2020-05-04] MEDS: LOSARTAN POTASSIUM 25 MG TABLET GT SCH (09:00)
[2020-05-04] MEDS: METOPROLOL TARTRATE 25 MG TABLET GT SCH ×2 (09:00→21:00)
[2020-05-04] MEDS: HYDROGEN PEROXIDE 3% 118 ML BOTTLE TP SCH ×2 (09:00→21:28)
[2020-05-04] MEDS: ASPIRIN 81 MG TAB.CHEW GT SCH (09:31)
[2020-05-04] MEDS: NUTRISOURCE FIBER 4 GM PACKET GT SCH (09:32)
[2020-05-04] MEDS: ACIDOPHILUS/BULGARICUS CHEW TAB GT SCH ×2 (09:32→21:22)
[2020-05-04] MEDS: HEPARIN SODIUM,PORCINE 5,000 UNITS/ML VIAL SQ SCH ×2 (09:33→21:23)
[2020-05-04] MEDS: VITAL AF 1.2 1,000 ML LIQUID GT PRN (09:37)
[2020-05-04] MEDS: COD LIVER OIL/ZINC OXIDE OINT 113 GM TUBE TP SCH ×2 (09:37→21:23)
[2020-05-04 20:20] VITALS: BP 136/53
[2020-05-04] MEDS: ATORVASTATIN 20 MG TABLET GT SCH (21:22)
[2020-05-05] MEDS: ALBUTEROL SULFATE 2.5 MG/3 ML NEBU NEB SCH ×4 (02:00→19:00)
[2020-05-05] MEDS: OMEPRAZOLE 20 MG CAPSULE.DR GT SCH ×2 (05:13→17:23)
[2020-05-05] MEDS: HYDROGEN PEROXIDE 3% 118 ML BOTTLE TP SCH ×2 (07:23→19:02)
[2020-05-05 07:46] VITALS: BP 130/72
[2020-05-05] MEDS: ASPIRIN 81 MG TAB.CHEW GT SCH (08:47)
[2020-05-05] MEDS: LOSARTAN POTASSIUM 25 MG TABLET GT SCH (08:48)
[2020-05-05] MEDS: METOPROLOL TARTRATE 25 MG TABLET GT SCH ×2 (08:49→20:04)
[2020-05-05] MEDS: NUTRISOURCE FIBER 4 GM PACKET GT SCH (08:49)
[2020-05-05] MEDS: ACIDOPHILUS/BULGARICUS CHEW TAB GT SCH ×2 (08:49→20:02)
[2020-05-05] MEDS: COD LIVER OIL/ZINC OXIDE OINT 113 GM TUBE TP SCH ×2 (08:50→20:12)
[2020-05-05] MEDS: HEPARIN SODIUM,PORCINE 5,000 UNITS/ML VIAL SQ SCH ×2 (08:50→21:00)
[2020-05-05] MEDS: VITAL AF 1.2 1,000 ML LIQUID GT PRN (09:03)
--- NOTE | 2020-05-05 12:30 | NUR ---
ZOOM PROVIDED TO MOTHER. Addendum: 05/05/20 at 1454 by TANYA HECTOR LVN wrong patient entry
[2020-05-05 13:19] LABS: BASOPHILS % (AUTO) 0.2 % (0.0-2.0); EOSINOPHILS # (AUTO) 0.7 K/uL (0.0-0.7); EOSINOPHILS % (AUTO) 13.8 % (0.0-7.0); HEMATOCRIT 39.5 % (36.7-47.1); HEMOGLOBIN 13.5 g/dL (12.5-16.3); LYMPHOCYTES # (AUTO) 1.4 K/uL (20.0-40.0); LYMPHOCYTES % (AUTO) 26.4 % (20.5-51.5); MEAN CORPUSCULAR HEMOGLOBIN 33.1 uug (23.8-33.4); MEAN CORPUSCULAR HGB CONC 34 g/dL (32.5-36.3); MEAN CORPUSCULAR VOLUME 97.1 fL (73.0-96.2); MONOCYTES # (AUTO) 0.4 K/uL (2.0-10.0); MONOCYTES % (AUTO) 8.5 % (0.0-11.0); NEUTROPHILS # (AUTO) 2.6 K/uL (1.8-8.9); NEUTROPHILS % (AUTO) 51.1 % (38.5-71.5); PLATELET COUNT (AUTO) 289 K/uL (152-348); RED BLOOD CELL COUNT(AUTO) 4.06 MIL/uL (4.06-5.63); WHITE BLOOD COUNT (AUTO) 5.2 K/uL (3.6-10.2)
[2020-05-05 13:31] LABS: CREATININE 0.6 mg/dL (0.6-1.3); MAGNESIUM 2.3 mg/dL (1.8-2.4); PHOSPHOROUS 3.4 mg/dL (2.5-4.9); POTASSIUM 4.7 mmol/L (3.5-5.1)
--- NOTE | 2020-05-05 14:53 | NUR ---
zoom provided to uday.
--- NOTE | 2020-05-05 15:57 | NUR ---
Son Reji notified covid19 test will be done today.
[2020-05-05] MEDS: ATORVASTATIN 20 MG TABLET GT SCH (20:02)
[2020-05-05] MEDS: MULTIVIT, IRON, MIN NO. 8, FA TABLET GT SCH (20:05)
[2020-05-05 20:10] VITALS: BP 134/74
[2020-05-06] MEDS: ALBUTEROL SULFATE 2.5 MG/3 ML NEBU NEB SCH ×4 (01:00→19:39)
[2020-05-06] MEDS: VITAL AF 1.2 1,000 ML LIQUID GT PRN (04:00)
[2020-05-06] MEDS: OMEPRAZOLE 20 MG CAPSULE.DR GT SCH ×2 (05:23→17:19)
[2020-05-06 07:38] VITALS: BP 127/43
[2020-05-06] MEDS: ASPIRIN 81 MG TAB.CHEW GT SCH (08:16)
[2020-05-06] MEDS: LOSARTAN POTASSIUM 25 MG TABLET GT SCH (08:16)
[2020-05-06] MEDS: NUTRISOURCE FIBER 4 GM PACKET GT SCH (08:17)
[2020-05-06] MEDS: METOPROLOL TARTRATE 25 MG TABLET GT SCH ×2 (08:17→20:52)
[2020-05-06] MEDS: ACIDOPHILUS/BULGARICUS CHEW TAB GT SCH ×2 (08:17→20:52)
[2020-05-06] MEDS: COD LIVER OIL/ZINC OXIDE OINT 113 GM TUBE TP SCH ×2 (08:18→20:54)
[2020-05-06] MEDS: HEPARIN SODIUM,PORCINE 5,000 UNITS/ML VIAL SQ SCH ×2 (08:19→20:54)
[2020-05-06] MEDS: HYDROGEN PEROXIDE 3% 118 ML BOTTLE TP SCH ×2 (09:38→20:59)
[2020-05-06 20:17] VITALS: BP 138/60
[2020-05-06] MEDS: ATORVASTATIN 20 MG TABLET GT SCH (20:52)
[2020-05-07] MEDS: ALBUTEROL SULFATE 2.5 MG/3 ML NEBU NEB SCH ×4 (00:51→19:30)
[2020-05-07] MEDS: VITAL AF 1.2 1,000 ML LIQUID GT PRN (01:09)
[2020-05-07] MEDS: OMEPRAZOLE 20 MG CAPSULE.DR GT SCH ×2 (05:28→17:34)
[2020-05-07 07:43] VITALS: BP 116/62
[2020-05-07] MEDS: HYDROGEN PEROXIDE 3% 118 ML BOTTLE TP SCH ×2 (07:50→21:03)
[2020-05-07] MEDS: LOSARTAN POTASSIUM 25 MG TABLET GT SCH (09:00)
[2020-05-07] MEDS: ASPIRIN 81 MG TAB.CHEW GT SCH (09:29)
[2020-05-07] MEDS: ACIDOPHILUS/BULGARICUS CHEW TAB GT SCH ×2 (09:30→21:26)
[2020-05-07] MEDS: HEPARIN SODIUM,PORCINE 5,000 UNITS/ML VIAL SQ SCH ×2 (09:31→21:27)
[2020-05-07] MEDS: COD LIVER OIL/ZINC OXIDE OINT 113 GM TUBE TP SCH ×2 (09:31→21:27)
[2020-05-07] MEDS: METOPROLOL TARTRATE 25 MG TABLET GT SCH ×2 (09:31→21:26)
[2020-05-07] MEDS: NUTRISOURCE FIBER 4 GM PACKET GT SCH (09:31)
--- NOTE | 2020-05-07 19:37 | NUR ---
Son Reji notified covid19 results are negative.
[2020-05-07 20:00] VITALS: BP 110/56
[2020-05-07] MEDS: MULTIVIT, IRON, MIN NO. 8, FA TABLET GT SCH (21:26)
[2020-05-07] MEDS: ATORVASTATIN 20 MG TABLET GT SCH (21:26)
[2020-05-08] MEDS: ALBUTEROL SULFATE 2.5 MG/3 ML NEBU NEB SCH ×4 (00:53→19:19)
[2020-05-08] MEDS: OMEPRAZOLE 20 MG CAPSULE.DR GT SCH ×2 (06:04→17:00)
[2020-05-08] MEDS: HYDROGEN PEROXIDE 3% 118 ML BOTTLE TP SCH ×2 (07:35→20:55)
[2020-05-08 07:40] VITALS: BP 131/46
[2020-05-08] MEDS: HEPARIN SODIUM,PORCINE 5,000 UNITS/ML VIAL SQ SCH ×2 (08:28→20:47)
[2020-05-08] MEDS: ASPIRIN 81 MG TAB.CHEW GT SCH (08:32)
[2020-05-08] MEDS: LOSARTAN POTASSIUM 25 MG TABLET GT SCH (08:33)
[2020-05-08] MEDS: ACIDOPHILUS/BULGARICUS CHEW TAB GT SCH ×2 (08:33→20:39)
[2020-05-08] MEDS: NUTRISOURCE FIBER 4 GM PACKET GT SCH (08:35)
[2020-05-08] MEDS: METOPROLOL TARTRATE 25 MG TABLET GT SCH ×2 (08:35→20:43)
[2020-05-08] MEDS: COD LIVER OIL/ZINC OXIDE OINT 113 GM TUBE TP SCH ×2 (08:36→20:47)
[2020-05-08] MEDS: ACETAMINOPHEN 650 MG/20 ML UDC- SA PATIENTS-PAIN ONLY GT PRN (14:29)
[2020-05-08] MEDS: VITAL AF 1.2 1,000 ML LIQUID GT PRN (14:30)
--- NOTE | 2020-05-08 19:14 | NUR ---
SEEN AND EXAMINED BY DR. GUTIERREZ AND WITH NNO.
[2020-05-08 20:00] VITALS: BP 112/59
[2020-05-08] MEDS: ATORVASTATIN 20 MG TABLET GT SCH (20:40)
[2020-05-08 22:00] VITALS: BP 112/59
[2020-05-09] MEDS: ALBUTEROL SULFATE 2.5 MG/3 ML NEBU NEB SCH ×4 (01:20→19:40)
[2020-05-09] MEDS: OMEPRAZOLE 20 MG CAPSULE.DR GT SCH ×2 (05:47→17:01)
[2020-05-09 07:46] VITALS: BP 122/50
[2020-05-09] MEDS: ASPIRIN 81 MG TAB.CHEW GT SCH (08:50)
[2020-05-09] MEDS: VITAL AF 1.2 1,000 ML LIQUID GT PRN (08:52)
[2020-05-09] MEDS: ACIDOPHILUS/BULGARICUS CHEW TAB GT SCH ×2 (08:52→21:17)
[2020-05-09] MEDS: LOSARTAN POTASSIUM 25 MG TABLET GT SCH (08:52)
[2020-05-09] MEDS: METOPROLOL TARTRATE 25 MG TABLET GT SCH ×2 (08:53→21:17)
[2020-05-09] MEDS: NUTRISOURCE FIBER 4 GM PACKET GT SCH (08:54)
[2020-05-09] MEDS: HEPARIN SODIUM,PORCINE 5,000 UNITS/ML VIAL SQ SCH ×2 (08:55→20:58)
[2020-05-09] MEDS: COD LIVER OIL/ZINC OXIDE OINT 113 GM TUBE TP SCH ×2 (08:55→21:17)
[2020-05-09] MEDS: HYDROGEN PEROXIDE 3% 118 ML BOTTLE TP SCH ×2 (09:23→21:27)
[2020-05-09 19:28] VITALS: BP 131/54
[2020-05-09] MEDS: ATORVASTATIN 20 MG TABLET GT SCH (21:17)
[2020-05-09] MEDS: MULTIVIT, IRON, MIN NO. 8, FA TABLET GT SCH (21:17)
[2020-05-10] MEDS: ALBUTEROL SULFATE 2.5 MG/3 ML NEBU NEB SCH ×4 (00:48→19:30)
[2020-05-10] MEDS: VITAL AF 1.2 1,000 ML LIQUID GT PRN ×2 (01:34→21:12)
[2020-05-10] MEDS: OMEPRAZOLE 20 MG CAPSULE.DR GT SCH ×2 (05:08→17:16)
[2020-05-10 07:44] VITALS: BP 129/53
[2020-05-10] MEDS: ASPIRIN 81 MG TAB.CHEW GT SCH (08:04)
[2020-05-10] MEDS: LOSARTAN POTASSIUM 25 MG TABLET GT SCH (08:05)
[2020-05-10] MEDS: ACIDOPHILUS/BULGARICUS CHEW TAB GT SCH ×2 (08:06→20:49)
[2020-05-10] MEDS: METOPROLOL TARTRATE 25 MG TABLET GT SCH ×2 (08:06→20:49)
[2020-05-10] MEDS: COD LIVER OIL/ZINC OXIDE OINT 113 GM TUBE TP SCH ×2 (08:07→20:49)
[2020-05-10] MEDS: NUTRISOURCE FIBER 4 GM PACKET GT SCH (08:07)
[2020-05-10] MEDS: HEPARIN SODIUM,PORCINE 5,000 UNITS/ML VIAL SQ SCH ×2 (08:10→20:49)
[2020-05-10] MEDS: HYDROGEN PEROXIDE 3% 118 ML BOTTLE TP SCH ×2 (09:10→21:33)
--- NOTE | 2020-05-10 14:00 | NUR ---
zoom provided for patient with daughter.
[2020-05-10 19:15] VITALS: BP 129/46
[2020-05-10] MEDS: ATORVASTATIN 20 MG TABLET GT SCH (20:49)
[2020-05-11] MEDS: ALBUTEROL SULFATE 2.5 MG/3 ML NEBU NEB SCH ×4 (01:18→19:30)
[2020-05-11] MEDS: OMEPRAZOLE 20 MG CAPSULE.DR GT SCH ×2 (05:25→17:19)
[2020-05-11 07:47] VITALS: BP 131/63
[2020-05-11] MEDS: HYDROGEN PEROXIDE 3% 118 ML BOTTLE TP SCH ×2 (08:00→21:15)
[2020-05-11] MEDS: ASPIRIN 81 MG TAB.CHEW GT SCH (08:53)
[2020-05-11] MEDS: NUTRISOURCE FIBER 4 GM PACKET GT SCH (09:01)
[2020-05-11] MEDS: ACIDOPHILUS/BULGARICUS CHEW TAB GT SCH ×2 (09:01→21:34)
[2020-05-11] MEDS: LOSARTAN POTASSIUM 25 MG TABLET GT SCH (09:01)
[2020-05-11] MEDS: METOPROLOL TARTRATE 25 MG TABLET GT SCH ×2 (09:01→21:37)
[2020-05-11] MEDS: HEPARIN SODIUM,PORCINE 5,000 UNITS/ML VIAL SQ SCH ×2 (09:02→21:39)
[2020-05-11] MEDS: COD LIVER OIL/ZINC OXIDE OINT 113 GM TUBE TP SCH ×2 (09:02→21:37)
[2020-05-11] MEDS: VITAL AF 1.2 1,000 ML LIQUID GT PRN (16:47)
[2020-05-11 20:17] VITALS: BP 134/64
[2020-05-11] MEDS: ATORVASTATIN 20 MG TABLET GT SCH (21:34)
[2020-05-11] MEDS: MULTIVIT, IRON, MIN NO. 8, FA TABLET GT SCH (21:37)
[2020-05-12] MEDS: ALBUTEROL SULFATE 2.5 MG/3 ML NEBU NEB SCH ×4 (00:54→19:30)
[2020-05-12] MEDS: OMEPRAZOLE 20 MG CAPSULE.DR GT SCH ×2 (05:59→17:33)
[2020-05-12] MEDS: HYDROGEN PEROXIDE 3% 118 ML BOTTLE TP SCH ×2 (07:29→19:30)
[2020-05-12 07:37] VITALS: BP 120/44
[2020-05-12] MEDS: ASPIRIN 81 MG TAB.CHEW GT SCH (08:45)
[2020-05-12] MEDS: LOSARTAN POTASSIUM 25 MG TABLET GT SCH (08:45)
[2020-05-12] MEDS: ACIDOPHILUS/BULGARICUS CHEW TAB GT SCH ×2 (08:45→21:20)
[2020-05-12] MEDS: NUTRISOURCE FIBER 4 GM PACKET GT SCH (08:45)
[2020-05-12] MEDS: METOPROLOL TARTRATE 25 MG TABLET GT SCH ×2 (08:45→21:21)
[2020-05-12] MEDS: HEPARIN SODIUM,PORCINE 5,000 UNITS/ML VIAL SQ SCH ×2 (08:46→21:12)
[2020-05-12] MEDS: COD LIVER OIL/ZINC OXIDE OINT 113 GM TUBE TP SCH ×2 (08:46→21:21)
[2020-05-12] MEDS: VITAL AF 1.2 1,000 ML LIQUID GT PRN (12:12)
[2020-05-12 20:10] VITALS: BP 130/58
[2020-05-12] MEDS: ATORVASTATIN 20 MG TABLET GT SCH (21:20)
[2020-05-13] MEDS: ALBUTEROL SULFATE 2.5 MG/3 ML NEBU NEB SCH ×4 (00:35→19:17)
[2020-05-13] MEDS: ALBUTEROL SULFATE 2.5 MG/3 ML NEBU NEB PRN (00:35)
[2020-05-13] MEDS: VITAL AF 1.2 1,000 ML LIQUID GT PRN (04:27)
[2020-05-13] MEDS: OMEPRAZOLE 20 MG CAPSULE.DR GT SCH ×2 (05:15→17:27)
[2020-05-13 07:43] VITALS: BP 122/52
[2020-05-13] MEDS: ACIDOPHILUS/BULGARICUS CHEW TAB GT SCH ×2 (08:54→20:16)
[2020-05-13] MEDS: ASPIRIN 81 MG TAB.CHEW GT SCH (08:54)
[2020-05-13] MEDS: LOSARTAN POTASSIUM 25 MG TABLET GT SCH (08:54)
[2020-05-13] MEDS: NUTRISOURCE FIBER 4 GM PACKET GT SCH (08:56)
[2020-05-13] MEDS: COD LIVER OIL/ZINC OXIDE OINT 113 GM TUBE TP SCH ×2 (08:56→20:18)
[2020-05-13] MEDS: METOPROLOL TARTRATE 25 MG TABLET GT SCH ×2 (08:56→20:18)
[2020-05-13] MEDS: HEPARIN SODIUM,PORCINE 5,000 UNITS/ML VIAL SQ SCH ×2 (08:59→20:15)
[2020-05-13] MEDS: HYDROGEN PEROXIDE 3% 118 ML BOTTLE TP SCH ×2 (09:49→20:53)
--- NOTE | 2020-05-13 15:30 | NUR ---
SEEN AND EXAMINED BY DR Johnson,NO NEW ORDERS.
[2020-05-13 20:02] VITALS: BP 127/55
[2020-05-13] MEDS: ATORVASTATIN 20 MG TABLET GT SCH (20:16)
[2020-05-13] MEDS: MULTIVIT, IRON, MIN NO. 8, FA TABLET GT SCH (20:18)
[2020-05-14] MEDS: ALBUTEROL SULFATE 2.5 MG/3 ML NEBU NEB SCH ×4 (00:50→19:36)
[2020-05-14] MEDS: VITAL AF 1.2 1,000 ML LIQUID GT PRN (02:09)
[2020-05-14] MEDS: OMEPRAZOLE 20 MG CAPSULE.DR GT SCH ×2 (05:54→18:00)
[2020-05-14 07:54] VITALS: BP 113/40
[2020-05-14] MEDS: ASPIRIN 81 MG TAB.CHEW GT SCH (08:34)
[2020-05-14] MEDS: LOSARTAN POTASSIUM 25 MG TABLET GT SCH (08:35)
[2020-05-14] MEDS: ACIDOPHILUS/BULGARICUS CHEW TAB GT SCH ×2 (08:35→20:05)
[2020-05-14] MEDS: NUTRISOURCE FIBER 4 GM PACKET GT SCH (08:36)
[2020-05-14] MEDS: METOPROLOL TARTRATE 25 MG TABLET GT SCH ×2 (08:36→20:05)
[2020-05-14] MEDS: COD LIVER OIL/ZINC OXIDE OINT 113 GM TUBE TP SCH ×2 (08:37→20:08)
[2020-05-14] MEDS: HEPARIN SODIUM,PORCINE 5,000 UNITS/ML VIAL SQ SCH ×2 (08:38→20:06)
[2020-05-14] MEDS: HYDROGEN PEROXIDE 3% 118 ML BOTTLE TP SCH ×2 (09:00→21:28)
[2020-05-14] MEDS: ATORVASTATIN 20 MG TABLET GT SCH (20:05)
[2020-05-14 20:07] VITALS: BP 127/66
[2020-05-15] MEDS: ALBUTEROL SULFATE 2.5 MG/3 ML NEBU NEB SCH ×4 (01:14→19:36)
[2020-05-15] MEDS: VITAL AF 1.2 1,000 ML LIQUID GT PRN (06:04)
[2020-05-15] MEDS: OMEPRAZOLE 20 MG CAPSULE.DR GT SCH ×2 (06:05→17:10)
[2020-05-15 07:46] VITALS: BP 110/60
[2020-05-15] MEDS: HYDROGEN PEROXIDE 3% 118 ML BOTTLE TP SCH ×2 (09:00→21:12)
[2020-05-15] MEDS: LOSARTAN POTASSIUM 25 MG TABLET GT SCH (09:00)
[2020-05-15] MEDS: ACIDOPHILUS/BULGARICUS CHEW TAB GT SCH ×2 (09:35→20:34)
[2020-05-15] MEDS: ASPIRIN 81 MG TAB.CHEW GT SCH (09:35)
[2020-05-15] MEDS: METOPROLOL TARTRATE 25 MG TABLET GT SCH ×2 (09:37→20:36)
[2020-05-15] MEDS: NUTRISOURCE FIBER 4 GM PACKET GT SCH (09:37)
[2020-05-15] MEDS: COD LIVER OIL/ZINC OXIDE OINT 113 GM TUBE TP SCH ×2 (09:37→20:36)
[2020-05-15] MEDS: HEPARIN SODIUM,PORCINE 5,000 UNITS/ML VIAL SQ SCH ×2 (09:39→20:41)
--- NOTE | 2020-05-15 17:40 | NUR ---
CALLED AND NOTIFIED [employer] OF ANNUAL PPD TEST. NOTIFIED ROSALINDA CARL OF THE PPD TEST AND HE OKAYED TO GIVE TEST.
[2020-05-15] MEDS: ATORVASTATIN 20 MG TABLET GT SCH (20:35)
[2020-05-15] MEDS: MULTIVIT, IRON, MIN NO. 8, FA TABLET GT SCH (20:36)
[2020-05-15 20:44] VITALS: BP 125/56
[2020-05-16] MEDS: VITAL AF 1.2 1,000 ML LIQUID GT PRN (00:21)
[2020-05-16] MEDS: ALBUTEROL SULFATE 2.5 MG/3 ML NEBU NEB SCH ×4 (01:44→19:21)
[2020-05-16] MEDS: OMEPRAZOLE 20 MG CAPSULE.DR GT SCH ×2 (05:25→17:17)
[2020-05-16 08:03] VITALS: BP 119/50
[2020-05-16] MEDS: LOSARTAN POTASSIUM 25 MG TABLET GT SCH (09:00)
[2020-05-16] MEDS: ASPIRIN 81 MG TAB.CHEW GT SCH (09:16)
[2020-05-16] MEDS: ACIDOPHILUS/BULGARICUS CHEW TAB GT SCH ×2 (09:17→21:55)
[2020-05-16] MEDS: NUTRISOURCE FIBER 4 GM PACKET GT SCH (09:17)
[2020-05-16] MEDS: HEPARIN SODIUM,PORCINE 5,000 UNITS/ML VIAL SQ SCH ×2 (09:17→21:54)
[2020-05-16] MEDS: METOPROLOL TARTRATE 25 MG TABLET GT SCH ×2 (09:17→21:56)
[2020-05-16] MEDS: COD LIVER OIL/ZINC OXIDE OINT 113 GM TUBE TP SCH ×2 (09:18→21:56)
[2020-05-16] MEDS: HYDROGEN PEROXIDE 3% 118 ML BOTTLE TP SCH ×2 (09:50→21:24)
[2020-05-16 21:34] VITALS: BP 120/74
[2020-05-16] MEDS: ATORVASTATIN 20 MG TABLET GT SCH (21:56)
[2020-05-17] MEDS: ALBUTEROL SULFATE 2.5 MG/3 ML NEBU NEB SCH ×4 (00:30→19:30)
[2020-05-17] MEDS: OMEPRAZOLE 20 MG CAPSULE.DR GT SCH ×2 (05:35→17:57)
[2020-05-17 07:41] VITALS: BP 110/64
[2020-05-17] MEDS: HYDROGEN PEROXIDE 3% 118 ML BOTTLE TP SCH ×2 (07:54→21:32)
[2020-05-17] MEDS: ASPIRIN 81 MG TAB.CHEW GT SCH (08:31)
[2020-05-17] MEDS: LOSARTAN POTASSIUM 25 MG TABLET GT SCH (08:31)
[2020-05-17] MEDS: METOPROLOL TARTRATE 25 MG TABLET GT SCH ×2 (08:32→21:35)
[2020-05-17] MEDS: ACIDOPHILUS/BULGARICUS CHEW TAB GT SCH ×2 (08:32→21:35)
[2020-05-17] MEDS: NUTRISOURCE FIBER 4 GM PACKET GT SCH (08:32)
[2020-05-17] MEDS: COD LIVER OIL/ZINC OXIDE OINT 113 GM TUBE TP SCH ×2 (08:34→21:35)
[2020-05-17] MEDS: HEPARIN SODIUM,PORCINE 5,000 UNITS/ML VIAL SQ SCH ×2 (08:35→21:36)
[2020-05-17] MEDS: VITAL AF 1.2 1,000 ML LIQUID GT PRN (13:15)
[2020-05-17 19:18] VITALS: BP 125/54
[2020-05-17] MEDS: ATORVASTATIN 20 MG TABLET GT SCH (21:35)
[2020-05-17] MEDS: MULTIVIT, IRON, MIN NO. 8, FA TABLET GT SCH (21:35)
[2020-05-18] MEDS: ALBUTEROL SULFATE 2.5 MG/3 ML NEBU NEB SCH ×4 (01:10→19:28)
[2020-05-18] MEDS: OMEPRAZOLE 20 MG CAPSULE.DR GT SCH ×2 (05:31→18:02)
[2020-05-18 07:19] LABS: BASOPHILS % (AUTO) 0.7 % (0.0-2.0); EOSINOPHILS # (AUTO) 0.8 K/uL (0.0-0.7); EOSINOPHILS % (AUTO) 11.9 % (0.0-7.0); HEMATOCRIT 36.4 % (36.7-47.1); HEMOGLOBIN 12.9 g/dL (12.5-16.3); LYMPHOCYTES # (AUTO) 1.5 K/uL (20.0-40.0); LYMPHOCYTES % (AUTO) 23.3 % (20.5-51.5); MEAN CORPUSCULAR HEMOGLOBIN 33.4 uug (23.8-33.4); MEAN CORPUSCULAR HGB CONC 35 g/dL (32.5-36.3); MEAN CORPUSCULAR VOLUME 94.5 fL (73.0-96.2); MONOCYTES # (AUTO) 0.6 K/uL (2.0-10.0); MONOCYTES % (AUTO) 8.8 % (0.0-11.0); NEUTROPHILS # (AUTO) 3.5 K/uL (1.8-8.9); NEUTROPHILS % (AUTO) 55.3 % (38.5-71.5); PLATELET COUNT (AUTO) 261 K/uL (152-348); RED BLOOD CELL COUNT(AUTO) 3.85 MIL/uL (4.06-5.63); WHITE BLOOD COUNT (AUTO) 6.4 K/uL (3.6-10.2)
[2020-05-18 07:40] LABS: CREATININE 0.7 mg/dL (0.6-1.3); MAGNESIUM 2.4 mg/dL (1.8-2.4); PHOSPHOROUS 3.5 mg/dL (2.5-4.9); POTASSIUM 4.4 mmol/L (3.5-5.1)
[2020-05-18 07:42] VITALS: BP 125/47
[2020-05-18] MEDS: LOSARTAN POTASSIUM 25 MG TABLET GT SCH (08:40)
[2020-05-18] MEDS: ASPIRIN 81 MG TAB.CHEW GT SCH (08:40)
[2020-05-18] MEDS: ACIDOPHILUS/BULGARICUS CHEW TAB GT SCH ×2 (08:40→20:52)
[2020-05-18] MEDS: METOPROLOL TARTRATE 25 MG TABLET GT SCH ×2 (08:41→20:53)
[2020-05-18] MEDS: NUTRISOURCE FIBER 4 GM PACKET GT SCH (08:41)
[2020-05-18] MEDS: HEPARIN SODIUM,PORCINE 5,000 UNITS/ML VIAL SQ SCH ×2 (08:43→21:00)
[2020-05-18] MEDS: COD LIVER OIL/ZINC OXIDE OINT 113 GM TUBE TP SCH ×2 (08:43→20:53)
[2020-05-18] MEDS: VITAL AF 1.2 1,000 ML LIQUID GT PRN (08:43)
[2020-05-18] MEDS: HYDROGEN PEROXIDE 3% 118 ML BOTTLE TP SCH ×2 (09:56→19:28)
[2020-05-18] MEDS: ATORVASTATIN 20 MG TABLET GT SCH (20:52)
[2020-05-18 22:23] VITALS: BP 125/58
[2020-05-19] MEDS: ALBUTEROL SULFATE 2.5 MG/3 ML NEBU NEB SCH ×4 (00:40→19:50)
[2020-05-19] MEDS: OMEPRAZOLE 20 MG CAPSULE.DR GT SCH ×2 (05:24→17:09)
[2020-05-19 07:37] VITALS: BP 144/54
[2020-05-19] MEDS: LOSARTAN POTASSIUM 25 MG TABLET GT SCH (08:35)
[2020-05-19] MEDS: NUTRISOURCE FIBER 4 GM PACKET GT SCH (08:35)
[2020-05-19] MEDS: METOPROLOL TARTRATE 25 MG TABLET GT SCH ×2 (08:35→20:44)
[2020-05-19] MEDS: ACIDOPHILUS/BULGARICUS CHEW TAB GT SCH ×2 (08:35→20:42)
[2020-05-19] MEDS: ASPIRIN 81 MG TAB.CHEW GT SCH (08:35)
[2020-05-19] MEDS: HEPARIN SODIUM,PORCINE 5,000 UNITS/ML VIAL SQ SCH ×2 (08:36→20:50)
[2020-05-19] MEDS: COD LIVER OIL/ZINC OXIDE OINT 113 GM TUBE TP SCH ×2 (08:37→20:50)
[2020-05-19] MEDS: HYDROGEN PEROXIDE 3% 118 ML BOTTLE TP SCH ×2 (12:50→21:35)
--- NOTE | 2020-05-19 15:22 | NUR ---
Spoke with son Reji, notified covid19 test will be done today, requested to call him only if results are positive.
--- NOTE | 2020-05-19 15:26 | NUR ---
Laura jcied covid19 test will be done today, requested to be called for results only. Addendum: 05/19/20 at 1529 by TILA HUIZAR RN Error on above entry.
[2020-05-19 20:42] VITALS: BP 113/50
[2020-05-19] MEDS: ATORVASTATIN 20 MG TABLET GT SCH (20:42)
[2020-05-19] MEDS: MULTIVIT, IRON, MIN NO. 8, FA TABLET GT SCH (20:44)
[2020-05-20] MEDS: ALBUTEROL SULFATE 2.5 MG/3 ML NEBU NEB SCH ×4 (00:45→20:12)
[2020-05-20] MEDS: OMEPRAZOLE 20 MG CAPSULE.DR GT SCH ×2 (05:04→18:03)
[2020-05-20] MEDS: VITAL AF 1.2 1,000 ML LIQUID GT PRN ×2 (05:05→21:29)
[2020-05-20 07:32] VITALS: BP 130/47
[2020-05-20] MEDS: HYDROGEN PEROXIDE 3% 118 ML BOTTLE TP SCH ×2 (07:50→21:40)
[2020-05-20] MEDS: ACIDOPHILUS/BULGARICUS CHEW TAB GT SCH ×2 (08:21→20:19)
[2020-05-20] MEDS: LOSARTAN POTASSIUM 25 MG TABLET GT SCH (08:21)
[2020-05-20] MEDS: ASPIRIN 81 MG TAB.CHEW GT SCH (08:21)
[2020-05-20] MEDS: METOPROLOL TARTRATE 25 MG TABLET GT SCH ×2 (08:22→20:18)
[2020-05-20] MEDS: COD LIVER OIL/ZINC OXIDE OINT 113 GM TUBE TP SCH ×2 (08:23→20:19)
[2020-05-20] MEDS: NUTRISOURCE FIBER 4 GM PACKET GT SCH (08:23)
[2020-05-20] MEDS: HEPARIN SODIUM,PORCINE 5,000 UNITS/ML VIAL SQ SCH ×2 (08:25→20:19)
[2020-05-20 20:19] VITALS: BP 122/79
[2020-05-20] MEDS: ATORVASTATIN 20 MG TABLET GT SCH (20:19)
[2020-05-21] MEDS: ALBUTEROL SULFATE 2.5 MG/3 ML NEBU NEB SCH ×4 (01:44→19:54)
[2020-05-21] MEDS: OMEPRAZOLE 20 MG CAPSULE.DR GT SCH ×2 (05:19→17:10)
[2020-05-21 07:40] VITALS: BP 119/70
[2020-05-21] MEDS: HYDROGEN PEROXIDE 3% 118 ML BOTTLE TP SCH ×2 (09:00→21:02)
[2020-05-21] MEDS: LOSARTAN POTASSIUM 25 MG TABLET GT SCH (09:00)
[2020-05-21] MEDS: ASPIRIN 81 MG TAB.CHEW GT SCH (09:01)
[2020-05-21] MEDS: ACIDOPHILUS/BULGARICUS CHEW TAB GT SCH ×2 (09:02→20:30)
[2020-05-21] MEDS: NUTRISOURCE FIBER 4 GM PACKET GT SCH (09:04)
[2020-05-21] MEDS: METOPROLOL TARTRATE 25 MG TABLET GT SCH ×2 (09:04→20:37)
[2020-05-21] MEDS: HEPARIN SODIUM,PORCINE 5,000 UNITS/ML VIAL SQ SCH ×2 (09:05→20:38)
[2020-05-21] MEDS: COD LIVER OIL/ZINC OXIDE OINT 113 GM TUBE TP SCH ×2 (09:07→20:39)
--- NOTE | 2020-05-21 19:00 | NUR ---
Pt's son Reji notified regarding Covid 19 results negative.
[2020-05-21 20:00] VITALS: BP 111/60
[2020-05-21] MEDS: ATORVASTATIN 20 MG TABLET GT SCH (20:37)
[2020-05-21] MEDS: MULTIVIT, IRON, MIN NO. 8, FA TABLET GT SCH (20:37)
[2020-05-21] MEDS: VITAL AF 1.2 1,000 ML LIQUID GT PRN (20:42)
[2020-05-22] MEDS: ALBUTEROL SULFATE 2.5 MG/3 ML NEBU NEB SCH ×4 (00:57→19:44)
[2020-05-22] MEDS: OMEPRAZOLE 20 MG CAPSULE.DR GT SCH ×2 (05:58→18:05)
[2020-05-22] MEDS: HYDROGEN PEROXIDE 3% 118 ML BOTTLE TP SCH ×2 (07:23→21:16)
[2020-05-22 07:34] VITALS: BP 110/60
[2020-05-22] MEDS: HEPARIN SODIUM,PORCINE 5,000 UNITS/ML VIAL SQ SCH ×2 (08:04→20:28)
[2020-05-22] MEDS: NUTRISOURCE FIBER 4 GM PACKET GT SCH (08:05)
[2020-05-22] MEDS: ACIDOPHILUS/BULGARICUS CHEW TAB GT SCH ×2 (08:08→20:19)
[2020-05-22] MEDS: METOPROLOL TARTRATE 25 MG TABLET GT SCH ×2 (08:08→20:33)
[2020-05-22] MEDS: LOSARTAN POTASSIUM 25 MG TABLET GT SCH (08:08)
[2020-05-22] MEDS: ASPIRIN 81 MG TAB.CHEW GT SCH (08:11)
[2020-05-22] MEDS: COD LIVER OIL/ZINC OXIDE OINT 113 GM TUBE TP SCH ×2 (08:23→20:25)
[2020-05-22] MEDS: VITAL AF 1.2 1,000 ML LIQUID GT PRN (18:52)
[2020-05-22 20:00] VITALS: BP 117/68
[2020-05-22] MEDS: ATORVASTATIN 20 MG TABLET GT SCH (20:20)
[2020-05-23] MEDS: ALBUTEROL SULFATE 2.5 MG/3 ML NEBU NEB SCH ×4 (00:54→20:11)
[2020-05-23] MEDS: OMEPRAZOLE 20 MG CAPSULE.DR GT SCH ×2 (05:27→17:45)
[2020-05-23 07:36] VITALS: BP 129/61
[2020-05-23] MEDS: ASPIRIN 81 MG TAB.CHEW GT SCH (08:34)
[2020-05-23] MEDS: LOSARTAN POTASSIUM 25 MG TABLET GT SCH (08:34)
[2020-05-23] MEDS: ACIDOPHILUS/BULGARICUS CHEW TAB GT SCH ×2 (08:35→20:19)
[2020-05-23] MEDS: METOPROLOL TARTRATE 25 MG TABLET GT SCH ×2 (08:35→20:20)
[2020-05-23] MEDS: NUTRISOURCE FIBER 4 GM PACKET GT SCH (08:37)
[2020-05-23] MEDS: HEPARIN SODIUM,PORCINE 5,000 UNITS/ML VIAL SQ SCH ×2 (08:39→20:44)
[2020-05-23] MEDS: COD LIVER OIL/ZINC OXIDE OINT 113 GM TUBE TP SCH ×2 (08:39→20:20)
[2020-05-23] MEDS: HYDROGEN PEROXIDE 3% 118 ML BOTTLE TP SCH ×2 (09:50→21:40)
--- NOTE | 2020-05-23 11:00 | NUR ---
Seen and examined by dr. Daniel houser and with nno.
[2020-05-23 15:38] LABS: BASOPHILS % (AUTO) 0.6 % (0.0-2.0); EOSINOPHILS # (AUTO) 0.5 K/uL (0.0-0.7); EOSINOPHILS % (AUTO) 8.3 % (0.0-7.0); HEMATOCRIT 38.6 % (36.7-47.1); HEMOGLOBIN 13.3 g/dL (12.5-16.3); LYMPHOCYTES # (AUTO) 1.4 K/uL (20.0-40.0); LYMPHOCYTES % (AUTO) 23.4 % (20.5-51.5); MEAN CORPUSCULAR HEMOGLOBIN 33.2 uug (23.8-33.4); MEAN CORPUSCULAR HGB CONC 34 g/dL (32.5-36.3); MEAN CORPUSCULAR VOLUME 96.6 fL (73.0-96.2); MONOCYTES # (AUTO) 0.5 K/uL (2.0-10.0); NEUTROPHILS # (AUTO) 3.5 K/uL (1.8-8.9); NEUTROPHILS % (AUTO) 59.7 % (38.5-71.5); PLATELET COUNT (AUTO) 268 K/uL (152-348); RED BLOOD CELL COUNT(AUTO) 3.99 MIL/uL (4.06-5.63); WHITE BLOOD COUNT (AUTO) 5.8 K/uL (3.6-10.2)
[2020-05-23 15:47] LABS: CREATININE 0.6 mg/dL (0.6-1.3); MAGNESIUM 2.1 mg/dL (1.8-2.4); PHOSPHOROUS 3.1 mg/dL (2.5-4.9); POTASSIUM 4.2 mmol/L (3.5-5.1)
[2020-05-23 20:00] VITALS: BP 107/60
[2020-05-23] MEDS: ATORVASTATIN 20 MG TABLET GT SCH (20:19)
[2020-05-23] MEDS: MULTIVIT, IRON, MIN NO. 8, FA TABLET GT SCH (20:20)
--- NOTE | 2020-05-24 01:05 | NUR ---
For COVID-19 testing as per [facility] requirement.
[2020-05-24] MEDS: ALBUTEROL SULFATE 2.5 MG/3 ML NEBU NEB SCH ×4 (01:54→20:10)
[2020-05-24] MEDS: OMEPRAZOLE 20 MG CAPSULE.DR GT SCH ×2 (05:18→18:25)
[2020-05-24 07:31] VITALS: BP 129/58
[2020-05-24] MEDS: HYDROGEN PEROXIDE 3% 118 ML BOTTLE TP SCH ×2 (08:59→22:00)
[2020-05-24] MEDS: ASPIRIN 81 MG TAB.CHEW GT SCH (09:16)
[2020-05-24] MEDS: LOSARTAN POTASSIUM 25 MG TABLET GT SCH (09:20)
[2020-05-24] MEDS: ACIDOPHILUS/BULGARICUS CHEW TAB GT SCH ×2 (09:20→20:22)
[2020-05-24] MEDS: COD LIVER OIL/ZINC OXIDE OINT 113 GM TUBE TP SCH ×2 (09:21→20:23)
[2020-05-24] MEDS: NUTRISOURCE FIBER 4 GM PACKET GT SCH (09:21)
[2020-05-24] MEDS: METOPROLOL TARTRATE 25 MG TABLET GT SCH ×2 (09:21→20:22)
[2020-05-24] MEDS: HEPARIN SODIUM,PORCINE 5,000 UNITS/ML VIAL SQ SCH ×2 (09:23→20:23)
--- NOTE | 2020-05-24 12:44 | NUR ---
PT'S SON ROSALINDA CARL WAS AWARE AND IN AGREEMENT OF PT'S ORDER FORCOVID 19 TEST TODAY.
[2020-05-24] MEDS: ATORVASTATIN 20 MG TABLET GT SCH (20:22)
[2020-05-24 20:26] VITALS: BP 113/56
[2020-05-25] MEDS: ALBUTEROL SULFATE 2.5 MG/3 ML NEBU NEB SCH ×4 (00:33→19:24)
[2020-05-25] MEDS: OMEPRAZOLE 20 MG CAPSULE.DR GT SCH ×2 (05:20→17:09)
[2020-05-25 07:32] VITALS: BP 130/62
[2020-05-25] MEDS: HYDROGEN PEROXIDE 3% 118 ML BOTTLE TP SCH ×2 (08:37→21:41)
[2020-05-25] MEDS: LOSARTAN POTASSIUM 25 MG TABLET GT SCH (08:58)
[2020-05-25] MEDS: ASPIRIN 81 MG TAB.CHEW GT SCH (08:58)
[2020-05-25] MEDS: ACIDOPHILUS/BULGARICUS CHEW TAB GT SCH ×2 (08:58→20:19)
[2020-05-25] MEDS: NUTRISOURCE FIBER 4 GM PACKET GT SCH (08:59)
[2020-05-25] MEDS: METOPROLOL TARTRATE 25 MG TABLET GT SCH ×2 (08:59→20:20)
[2020-05-25] MEDS: COD LIVER OIL/ZINC OXIDE OINT 113 GM TUBE TP SCH ×2 (08:59→20:21)
[2020-05-25] MEDS: HEPARIN SODIUM,PORCINE 5,000 UNITS/ML VIAL SQ SCH ×2 (09:01→21:26)
[2020-05-25] MEDS: VITAL AF 1.2 1,000 ML LIQUID GT PRN (12:19)
--- NOTE | 2020-05-25 17:18 | NUR ---
MESSAGE LEFT FOR ROSALINDA CARL RE: COVID 19 TEST NEGATIVE.
[2020-05-25] MEDS: ATORVASTATIN 20 MG TABLET GT SCH (20:19)
[2020-05-25] MEDS: MULTIVIT, IRON, MIN NO. 8, FA TABLET GT SCH (20:21)
[2020-05-25 20:33] VITALS: BP 115/50
[2020-05-26] MEDS: ALBUTEROL SULFATE 2.5 MG/3 ML NEBU NEB SCH ×4 (01:17→19:45)
[2020-05-26] MEDS: OMEPRAZOLE 20 MG CAPSULE.DR GT SCH ×2 (05:13→17:31)
[2020-05-26 07:38] VITALS: BP 111/34
[2020-05-26] MEDS: HYDROGEN PEROXIDE 3% 118 ML BOTTLE TP SCH ×2 (07:55→21:28)
[2020-05-26] MEDS: ASPIRIN 81 MG TAB.CHEW GT SCH (08:46)
[2020-05-26] MEDS: LOSARTAN POTASSIUM 25 MG TABLET GT SCH (08:47)
[2020-05-26] MEDS: METOPROLOL TARTRATE 25 MG TABLET GT SCH ×2 (08:47→21:00)
[2020-05-26] MEDS: ACIDOPHILUS/BULGARICUS CHEW TAB GT SCH ×2 (08:47→21:00)
[2020-05-26] MEDS: NUTRISOURCE FIBER 4 GM PACKET GT SCH (08:48)
[2020-05-26] MEDS: HEPARIN SODIUM,PORCINE 5,000 UNITS/ML VIAL SQ SCH ×2 (08:51→21:00)
[2020-05-26] MEDS: COD LIVER OIL/ZINC OXIDE OINT 113 GM TUBE TP SCH ×2 (08:58→21:00)
--- NOTE | 2020-05-26 13:51 | NUR ---
SEEN AND EXAMINED BY ENOCH Reyes AND WITH JEFFREYO.
--- NOTE | 2020-05-26 18:19 | NUR ---
LEFT LOWER BACK WOUND NOTED THAT WHEN PRESSING AROUND A LOT OF ODORLESS PALE GREENISH PUS DRAINED,LOCAL TX DONE AND WILL F/U IN AM WITH SX.
[2020-05-26 20:26] VITALS: BP 130/61
[2020-05-26] MEDS: ATORVASTATIN 20 MG TABLET GT SCH (21:00)
[2020-05-27] MEDS: ALBUTEROL SULFATE 2.5 MG/3 ML NEBU NEB SCH ×4 (00:52→19:52)
[2020-05-27] MEDS: OMEPRAZOLE 20 MG CAPSULE.DR GT SCH ×2 (05:14→17:49)
[2020-05-27 07:27] VITALS: BP 131/52
[2020-05-27] MEDS: ASPIRIN 81 MG TAB.CHEW GT SCH (09:00)
[2020-05-27] MEDS: METOPROLOL TARTRATE 25 MG TABLET GT SCH ×2 (09:00→21:04)
[2020-05-27] MEDS: HEPARIN SODIUM,PORCINE 5,000 UNITS/ML VIAL SQ SCH ×2 (09:00→21:05)
[2020-05-27] MEDS: COD LIVER OIL/ZINC OXIDE OINT 113 GM TUBE TP SCH ×2 (09:00→21:05)
[2020-05-27] MEDS: NUTRISOURCE FIBER 4 GM PACKET GT SCH (09:00)
[2020-05-27] MEDS: LOSARTAN POTASSIUM 25 MG TABLET GT SCH (09:00)
[2020-05-27] MEDS: ACIDOPHILUS/BULGARICUS CHEW TAB GT SCH ×2 (09:00→21:03)
[2020-05-27] MEDS: HYDROGEN PEROXIDE 3% 118 ML BOTTLE TP SCH ×2 (09:36→21:10)
[2020-05-27] MEDS: VITAL AF 1.2 1,000 ML LIQUID GT PRN (10:30)
--- NOTE | 2020-05-27 13:59 | NUR ---
Seen and examined by Dr valdez ,no new orders.
--- NOTE | 2020-05-27 14:29 | NUR ---
Seen and examined by Rosie Walton,no new orders.
[2020-05-27 20:28] VITALS: BP 136/50
[2020-05-27] MEDS: ATORVASTATIN 20 MG TABLET GT SCH (21:03)
[2020-05-27] MEDS: MULTIVIT, IRON, MIN NO. 8, FA TABLET GT SCH (21:04)
[2020-05-28] MEDS: ALBUTEROL SULFATE 2.5 MG/3 ML NEBU NEB SCH ×4 (00:49→19:28)
[2020-05-28] MEDS: OMEPRAZOLE 20 MG CAPSULE.DR GT SCH ×2 (05:41→17:45)
[2020-05-28 07:38] VITALS: BP 110/60
[2020-05-28] MEDS: HYDROGEN PEROXIDE 3% 118 ML BOTTLE TP SCH ×2 (07:51→21:41)
[2020-05-28] MEDS: METOPROLOL TARTRATE 25 MG TABLET GT SCH ×2 (09:00→20:45)
[2020-05-28] MEDS: LOSARTAN POTASSIUM 25 MG TABLET GT SCH (09:00)
[2020-05-28] MEDS: ACIDOPHILUS/BULGARICUS CHEW TAB GT SCH ×2 (09:16→20:40)
[2020-05-28] MEDS: ASPIRIN 81 MG TAB.CHEW GT SCH (09:16)
[2020-05-28] MEDS: COD LIVER OIL/ZINC OXIDE OINT 113 GM TUBE TP SCH ×2 (09:17→20:45)
[2020-05-28] MEDS: NUTRISOURCE FIBER 4 GM PACKET GT SCH (09:17)
[2020-05-28] MEDS: HEPARIN SODIUM,PORCINE 5,000 UNITS/ML VIAL SQ SCH ×2 (09:18→20:45)
[2020-05-28] MEDS: ACETAMINOPHEN 650 MG/20 ML UDC- SA PATIENTS-PAIN ONLY GT PRN (12:48)
--- NOTE | 2020-05-28 19:48 | NUR ---
Seen and examined by Marie Gonzalez [employer]ATIONSHIP SPECIALIST,notified regarding purulent discharge noted x 2,Wound tx done,she noticed at 6 o'clock they was a 2 cm depth ,to continue same tx and pack especially at 6 o'clock.
[2020-05-28 20:04] VITALS: BP 140/52
[2020-05-28] MEDS: ATORVASTATIN 20 MG TABLET GT SCH (20:40)
[2020-05-29] MEDS: ALBUTEROL SULFATE 2.5 MG/3 ML NEBU NEB SCH ×4 (00:39→18:39)
[2020-05-29] MEDS: VITAL AF 1.2 1,000 ML LIQUID GT PRN (03:35)
[2020-05-29] MEDS: OMEPRAZOLE 20 MG CAPSULE.DR GT SCH ×2 (05:12→18:36)
[2020-05-29 07:24] VITALS: BP 120/64
[2020-05-29] MEDS: HYDROGEN PEROXIDE 3% 118 ML BOTTLE TP SCH ×2 (07:33→21:42)
[2020-05-29] MEDS: ASPIRIN 81 MG TAB.CHEW GT SCH (08:12)
[2020-05-29] MEDS: LOSARTAN POTASSIUM 25 MG TABLET GT SCH (08:14)
[2020-05-29] MEDS: ACIDOPHILUS/BULGARICUS CHEW TAB GT SCH ×2 (08:14→20:41)
[2020-05-29] MEDS: METOPROLOL TARTRATE 25 MG TABLET GT SCH ×2 (08:14→20:42)
[2020-05-29] MEDS: NUTRISOURCE FIBER 4 GM PACKET GT SCH (08:16)
[2020-05-29] MEDS: COD LIVER OIL/ZINC OXIDE OINT 113 GM TUBE TP SCH ×2 (08:20→20:43)
[2020-05-29] MEDS: HEPARIN SODIUM,PORCINE 5,000 UNITS/ML VIAL SQ SCH ×2 (08:20→20:43)
--- NOTE | 2020-05-29 10:29 | NUR ---
SW notified patient's son Reji, daughter Marina, and [id number]-lxt Katrina, via email, that the next IDT meeting for the patient has been scheduled for Tuesday, 06/03 at 11am. SW asked them to let this SW know if either one of them would like to participate in the meeting by speaker phone.
[2020-05-29 19:25] VITALS: BP 141/66
[2020-05-29] MEDS: ATORVASTATIN 20 MG TABLET GT SCH (20:41)
[2020-05-29] MEDS: MULTIVIT, IRON, MIN NO. 8, FA TABLET GT SCH (20:42)
[2020-05-30] MEDS: ALBUTEROL SULFATE 2.5 MG/3 ML NEBU NEB SCH ×4 (00:40→19:12)
[2020-05-30] MEDS: VITAL AF 1.2 1,000 ML LIQUID GT PRN (03:26)
[2020-05-30] MEDS: OMEPRAZOLE 20 MG CAPSULE.DR GT SCH ×2 (05:18→17:23)
[2020-05-30 07:30] VITALS: BP 139/51
[2020-05-30] MEDS: METOPROLOL TARTRATE 25 MG TABLET GT SCH ×2 (09:00→21:22)
[2020-05-30] MEDS: ACIDOPHILUS/BULGARICUS CHEW TAB GT SCH ×2 (09:26→21:21)
[2020-05-30] MEDS: ASPIRIN 81 MG TAB.CHEW GT SCH (09:26)
[2020-05-30] MEDS: LOSARTAN POTASSIUM 25 MG TABLET GT SCH (09:26)
[2020-05-30] MEDS: COD LIVER OIL/ZINC OXIDE OINT 113 GM TUBE TP SCH ×2 (09:27→21:22)
[2020-05-30] MEDS: NUTRISOURCE FIBER 4 GM PACKET GT SCH (09:27)
[2020-05-30] MEDS: HEPARIN SODIUM,PORCINE 5,000 UNITS/ML VIAL SQ SCH ×2 (09:28→21:23)
[2020-05-30] MEDS: HYDROGEN PEROXIDE 3% 118 ML BOTTLE TP SCH ×2 (09:32→21:39)
[2020-05-30 19:47] VITALS: BP 127/84
[2020-05-30] MEDS: ATORVASTATIN 20 MG TABLET GT SCH (21:21)
[2020-05-31] MEDS: ALBUTEROL SULFATE 2.5 MG/3 ML NEBU NEB SCH ×4 (00:40→19:45)
[2020-05-31] MEDS: OMEPRAZOLE 20 MG CAPSULE.DR GT SCH ×2 (05:18→17:16)
[2020-05-31] MEDS: VITAL AF 1.2 1,000 ML LIQUID GT PRN (05:19)
[2020-05-31 08:18] VITALS: BP 115/58
[2020-05-31] MEDS: ASPIRIN 81 MG TAB.CHEW GT SCH (08:37)
[2020-05-31] MEDS: METOPROLOL TARTRATE 25 MG TABLET GT SCH ×2 (08:38→21:20)
[2020-05-31] MEDS: LOSARTAN POTASSIUM 25 MG TABLET GT SCH (08:38)
[2020-05-31] MEDS: ACIDOPHILUS/BULGARICUS CHEW TAB GT SCH ×2 (08:38→21:21)
[2020-05-31] MEDS: COD LIVER OIL/ZINC OXIDE OINT 113 GM TUBE TP SCH ×2 (08:39→21:20)
[2020-05-31] MEDS: NUTRISOURCE FIBER 4 GM PACKET GT SCH (08:39)
[2020-05-31] MEDS: HEPARIN SODIUM,PORCINE 5,000 UNITS/ML VIAL SQ SCH ×2 (08:43→21:21)
[2020-05-31] MEDS: HYDROGEN PEROXIDE 3% 118 ML BOTTLE TP SCH ×2 (10:00→19:46)
[2020-05-31] MEDS: ACETAMINOPHEN 650 MG/20 ML UDC- SA PATIENTS-PAIN ONLY GT PRN (17:30)
[2020-05-31 19:58] VITALS: BP 119/65
[2020-05-31] MEDS: MULTIVIT, IRON, MIN NO. 8, FA TABLET GT SCH (21:20)
[2020-05-31] MEDS: ATORVASTATIN 20 MG TABLET GT SCH (21:21)
[2020-06-01] MEDS: ALBUTEROL SULFATE 2.5 MG/3 ML NEBU NEB SCH ×4 (01:18→19:47)
[2020-06-01] MEDS: VITAL AF 1.2 1,000 ML LIQUID GT PRN (05:20)
[2020-06-01] MEDS: OMEPRAZOLE 20 MG CAPSULE.DR GT SCH ×2 (05:20→17:11)
[2020-06-01 07:31] VITALS: BP 124/63
[2020-06-01] MEDS: ASPIRIN 81 MG TAB.CHEW GT SCH (08:23)
[2020-06-01] MEDS: ACIDOPHILUS/BULGARICUS CHEW TAB GT SCH ×2 (08:24→21:27)
[2020-06-01] MEDS: LOSARTAN POTASSIUM 25 MG TABLET GT SCH (08:24)
[2020-06-01] MEDS: COD LIVER OIL/ZINC OXIDE OINT 113 GM TUBE TP SCH ×2 (08:24→21:28)
[2020-06-01] MEDS: METOPROLOL TARTRATE 25 MG TABLET GT SCH ×2 (08:24→21:27)
[2020-06-01] MEDS: NUTRISOURCE FIBER 4 GM PACKET GT SCH (08:24)
[2020-06-01] MEDS: HEPARIN SODIUM,PORCINE 5,000 UNITS/ML VIAL SQ SCH ×2 (08:25→21:00)
[2020-06-01] MEDS: HYDROGEN PEROXIDE 3% 118 ML BOTTLE TP SCH ×2 (09:00→21:17)
--- NOTE | 2020-06-01 19:07 | NUR ---
Covid results negative,,family wants to be called only when is positive results.
[2020-06-01] MEDS: ATORVASTATIN 20 MG TABLET GT SCH (21:27)
[2020-06-01 23:24] VITALS: BP 120/58
[2020-06-02] MEDS: ALBUTEROL SULFATE 2.5 MG/3 ML NEBU NEB SCH ×4 (00:53→20:05)
[2020-06-02] MEDS: OMEPRAZOLE 20 MG CAPSULE.DR GT SCH ×2 (05:24→17:07)
[2020-06-02] MEDS: VITAL AF 1.2 1,000 ML LIQUID GT PRN (05:24)
[2020-06-02 07:30] VITALS: BP 124/67
[2020-06-02] MEDS: ACIDOPHILUS/BULGARICUS CHEW TAB GT SCH ×2 (08:56→21:02)
[2020-06-02] MEDS: ASPIRIN 81 MG TAB.CHEW GT SCH (08:56)
[2020-06-02] MEDS: LOSARTAN POTASSIUM 25 MG TABLET GT SCH (08:56)
[2020-06-02] MEDS: METOPROLOL TARTRATE 25 MG TABLET GT SCH ×2 (08:56→21:03)
[2020-06-02] MEDS: NUTRISOURCE FIBER 4 GM PACKET GT SCH (08:58)
[2020-06-02] MEDS: COD LIVER OIL/ZINC OXIDE OINT 113 GM TUBE TP SCH ×2 (08:59→21:11)
[2020-06-02] MEDS: HEPARIN SODIUM,PORCINE 5,000 UNITS/ML VIAL SQ SCH ×2 (08:59→21:11)
[2020-06-02] MEDS: HYDROGEN PEROXIDE 3% 118 ML BOTTLE TP SCH ×2 (09:13→21:45)
[2020-06-02 20:00] VITALS: BP 129/62
[2020-06-02] MEDS: ATORVASTATIN 20 MG TABLET GT SCH (21:02)
[2020-06-02] MEDS: MULTIVIT, IRON, MIN NO. 8, FA TABLET GT SCH (21:03)
[2020-06-03] MEDS: ALBUTEROL SULFATE 2.5 MG/3 ML NEBU NEB SCH ×4 (02:02→19:25)
[2020-06-03] MEDS: OMEPRAZOLE 20 MG CAPSULE.DR GT SCH ×2 (05:39→18:06)
[2020-06-03] MEDS: VITAL AF 1.2 1,000 ML LIQUID GT PRN (05:39)
[2020-06-03 07:34] VITALS: BP 126/51
[2020-06-03] MEDS: HYDROGEN PEROXIDE 3% 118 ML BOTTLE TP SCH ×2 (08:00→21:00)
[2020-06-03] MEDS: ASPIRIN 81 MG TAB.CHEW GT SCH (08:40)
[2020-06-03] MEDS: LOSARTAN POTASSIUM 25 MG TABLET GT SCH (08:48)
[2020-06-03] MEDS: ACIDOPHILUS/BULGARICUS CHEW TAB GT SCH ×2 (08:50→20:16)
[2020-06-03] MEDS: METOPROLOL TARTRATE 25 MG TABLET GT SCH ×2 (08:52→20:16)
[2020-06-03] MEDS: NUTRISOURCE FIBER 4 GM PACKET GT SCH (08:54)
[2020-06-03] MEDS: HEPARIN SODIUM,PORCINE 5,000 UNITS/ML VIAL SQ SCH ×2 (08:57→20:19)
[2020-06-03] MEDS: COD LIVER OIL/ZINC OXIDE OINT 113 GM TUBE TP SCH ×2 (08:58→20:20)
--- NOTE | 2020-06-03 13:00 | NUR ---
Seen and examined by Rosie Walton,no new orders noted.
--- NOTE | 2020-06-03 16:37 | NUR ---
INTERDISCIPLINARY PLAN OF CARE CONFERENCE was held today. Patient's family was not available to participate in the meeting. Dr. Leary and the Interdisciplinary team reviewed the current plan of care in detail. RN reported on the patient's medical condition and status of wound treatment. No major changes in patient's condition were reported by RN or by the other disciplines. See RN IDT conference notes. See also all other disciplines IDT notes and physician's progress notes for additional details.
[2020-06-03 20:00] VITALS: BP 105/53
[2020-06-03] MEDS: ATORVASTATIN 20 MG TABLET GT SCH (20:16)
[2020-06-04] MEDS: ALBUTEROL SULFATE 2.5 MG/3 ML NEBU NEB SCH ×4 (00:50→19:37)
[2020-06-04] MEDS: OMEPRAZOLE 20 MG CAPSULE.DR GT SCH ×2 (05:41→17:05)
[2020-06-04 07:36] VITALS: BP 105/58
[2020-06-04] MEDS: ASPIRIN 81 MG TAB.CHEW GT SCH (08:35)
[2020-06-04] MEDS: LOSARTAN POTASSIUM 25 MG TABLET GT SCH (08:36)
[2020-06-04] MEDS: METOPROLOL TARTRATE 25 MG TABLET GT SCH ×2 (08:37→20:34)
[2020-06-04] MEDS: NUTRISOURCE FIBER 4 GM PACKET GT SCH (08:37)
[2020-06-04] MEDS: ACIDOPHILUS/BULGARICUS CHEW TAB GT SCH ×2 (08:37→20:32)
[2020-06-04] MEDS: COD LIVER OIL/ZINC OXIDE OINT 113 GM TUBE TP SCH ×2 (08:40→20:35)
[2020-06-04] MEDS: HEPARIN SODIUM,PORCINE 5,000 UNITS/ML VIAL SQ SCH ×2 (08:40→20:35)
[2020-06-04] MEDS: HYDROGEN PEROXIDE 3% 118 ML BOTTLE TP SCH ×2 (09:33→21:29)
[2020-06-04 20:00] VITALS: BP 112/59
[2020-06-04] MEDS: ATORVASTATIN 20 MG TABLET GT SCH (20:32)
[2020-06-04] MEDS: MULTIVIT, IRON, MIN NO. 8, FA TABLET GT SCH (20:35)
[2020-06-05] MEDS: ALBUTEROL SULFATE 2.5 MG/3 ML NEBU NEB SCH ×4 (00:49→19:30)
[2020-06-05] MEDS: OMEPRAZOLE 20 MG CAPSULE.DR GT SCH ×2 (05:29→17:57)
[2020-06-05 07:48] VITALS: BP 110/64
[2020-06-05] MEDS: LOSARTAN POTASSIUM 25 MG TABLET GT SCH (09:00)
[2020-06-05] MEDS: HYDROGEN PEROXIDE 3% 118 ML BOTTLE TP SCH ×2 (09:00→21:38)
[2020-06-05] MEDS: ASPIRIN 81 MG TAB.CHEW GT SCH (09:01)
[2020-06-05] MEDS: ACIDOPHILUS/BULGARICUS CHEW TAB GT SCH ×2 (09:02→20:56)
[2020-06-05] MEDS: METOPROLOL TARTRATE 25 MG TABLET GT SCH ×2 (09:02→20:58)
[2020-06-05] MEDS: NUTRISOURCE FIBER 4 GM PACKET GT SCH (09:02)
[2020-06-05] MEDS: COD LIVER OIL/ZINC OXIDE OINT 113 GM TUBE TP SCH ×2 (09:03→20:58)
[2020-06-05] MEDS: HEPARIN SODIUM,PORCINE 5,000 UNITS/ML VIAL SQ SCH ×2 (09:03→21:54)
--- NOTE | 2020-06-05 13:04 | NUR ---
Spoke with Pt's son Reji Jane. Verbal consent given by Reji Jane for patient to receive COVID 19 Vaccine.
[2020-06-05 19:25] VITALS: BP 115/68
[2020-06-05] MEDS: ATORVASTATIN 20 MG TABLET GT SCH (21:54)
[2020-06-06] MEDS: ALBUTEROL SULFATE 2.5 MG/3 ML NEBU NEB SCH ×4 (01:00→19:31)
[2020-06-06] MEDS: OMEPRAZOLE 20 MG CAPSULE.DR GT SCH ×2 (05:12→18:08)
[2020-06-06 08:23] VITALS: BP 128/78
[2020-06-06 08:54] LABS: CREATININE 0.8 mg/dL (0.6-1.3); MAGNESIUM 1.9 mg/dL (1.8-2.4); PHOSPHOROUS 3.2 mg/dL (2.5-4.9); POTASSIUM 4.4 mmol/L (3.5-5.1)
[2020-06-06 08:55] LABS: BASOPHILS % (AUTO) 0.8 % (0.0-2.0); EOSINOPHILS # (AUTO) 0.5 K/uL (0.0-0.7); HEMATOCRIT 37.1 % (36.7-47.1); LYMPHOCYTES # (AUTO) 1.5 K/uL (20.0-40.0); LYMPHOCYTES % (AUTO) 25.2 % (20.5-51.5); MEAN CORPUSCULAR HEMOGLOBIN 33.3 uug (23.8-33.4); MEAN CORPUSCULAR HGB CONC 35 g/dL (32.5-36.3); MEAN CORPUSCULAR VOLUME 95.3 fL (73.0-96.2); MONOCYTES # (AUTO) 0.4 K/uL (2.0-10.0); MONOCYTES % (AUTO) 6.5 % (0.0-11.0); NEUTROPHILS # (AUTO) 3.6 K/uL (1.8-8.9); NEUTROPHILS % (AUTO) 59.5 % (38.5-71.5); PLATELET COUNT (AUTO) 258 K/uL (152-348)
[2020-06-06] MEDS: HYDROGEN PEROXIDE 3% 118 ML BOTTLE TP SCH ×2 (09:00→21:36)
[2020-06-06] MEDS: LOSARTAN POTASSIUM 25 MG TABLET GT SCH (09:38)
[2020-06-06] MEDS: NUTRISOURCE FIBER 4 GM PACKET GT SCH (09:39)
[2020-06-06] MEDS: METOPROLOL TARTRATE 25 MG TABLET GT SCH ×2 (09:39→20:38)
[2020-06-06] MEDS: ACIDOPHILUS/BULGARICUS CHEW TAB GT SCH ×2 (09:39→20:37)
[2020-06-06] MEDS: COD LIVER OIL/ZINC OXIDE OINT 113 GM TUBE TP SCH ×2 (09:40→20:39)
[2020-06-06] MEDS: HEPARIN SODIUM,PORCINE 5,000 UNITS/ML VIAL SQ SCH ×2 (09:40→21:21)
[2020-06-06] MEDS: ASPIRIN 81 MG TAB.CHEW GT SCH (09:46)
[2020-06-06] MEDS: VITAL AF 1.2 1,000 ML LIQUID GT PRN (13:26)
[2020-06-06 19:25] VITALS: BP 106/58
[2020-06-06] MEDS: ATORVASTATIN 20 MG TABLET GT SCH (20:37)
[2020-06-06] MEDS: MULTIVIT, IRON, MIN NO. 8, FA TABLET GT SCH (20:39)
[2020-06-07] MEDS: ALBUTEROL SULFATE 2.5 MG/3 ML NEBU NEB SCH ×4 (01:12→18:09)
[2020-06-07] MEDS: OMEPRAZOLE 20 MG CAPSULE.DR GT SCH ×2 (05:26→17:06)
[2020-06-07 07:48] VITALS: BP 128/61
[2020-06-07] MEDS: HYDROGEN PEROXIDE 3% 118 ML BOTTLE TP SCH ×2 (07:55→21:13)
[2020-06-07] MEDS: ASPIRIN 81 MG TAB.CHEW GT SCH (09:19)
[2020-06-07] MEDS: ACIDOPHILUS/BULGARICUS CHEW TAB GT SCH ×2 (09:20→20:41)
[2020-06-07] MEDS: METOPROLOL TARTRATE 25 MG TABLET GT SCH ×2 (09:20→20:42)
[2020-06-07] MEDS: LOSARTAN POTASSIUM 25 MG TABLET GT SCH (09:20)
[2020-06-07] MEDS: HEPARIN SODIUM,PORCINE 5,000 UNITS/ML VIAL SQ SCH ×2 (09:22→20:42)
[2020-06-07] MEDS: COD LIVER OIL/ZINC OXIDE OINT 113 GM TUBE TP SCH ×2 (09:22→20:44)
[2020-06-07] MEDS: NUTRISOURCE FIBER 4 GM PACKET GT SCH (09:22)
[2020-06-07] MEDS: VITAL AF 1.2 1,000 ML LIQUID GT PRN (11:40)
--- NOTE | 2020-06-07 17:19 | NUR ---
PT. HAD VIDEO CHAT VIA ZOOM WITH PT'S DTR.
--- NOTE | 2020-06-07 18:32 | NUR ---
Zoom meeting provided for Patient and daughter at 1700. Addendum: 06/07/20 at 1837 by AZEB PICKERING LVN Amended: Links added.
[2020-06-07 19:26] VITALS: BP 123/72
[2020-06-07] MEDS: ATORVASTATIN 20 MG TABLET GT SCH (20:41)
[2020-06-08] MEDS: ALBUTEROL SULFATE 2.5 MG/3 ML NEBU NEB SCH ×4 (00:55→19:06)
[2020-06-08] MEDS: OMEPRAZOLE 20 MG CAPSULE.DR GT SCH ×2 (05:25→18:37)
[2020-06-08 07:40] VITALS: BP 128/58
[2020-06-08] MEDS: HYDROGEN PEROXIDE 3% 118 ML BOTTLE TP SCH ×2 (07:44→21:37)
[2020-06-08] MEDS: METOPROLOL TARTRATE 25 MG TABLET GT SCH ×2 (09:00→20:46)
[2020-06-08] MEDS: LOSARTAN POTASSIUM 25 MG TABLET GT SCH (09:00)
[2020-06-08] MEDS: ASPIRIN 81 MG TAB.CHEW GT SCH (09:49)
[2020-06-08] MEDS: NUTRISOURCE FIBER 4 GM PACKET GT SCH (09:50)
[2020-06-08] MEDS: ACIDOPHILUS/BULGARICUS CHEW TAB GT SCH ×2 (09:50→20:45)
[2020-06-08] MEDS: COD LIVER OIL/ZINC OXIDE OINT 113 GM TUBE TP SCH ×2 (09:51→20:46)
[2020-06-08] MEDS: HEPARIN SODIUM,PORCINE 5,000 UNITS/ML VIAL SQ SCH ×2 (09:54→20:44)
--- NOTE | 2020-06-08 15:24 | NUR ---
PT'S SON ROSALINDA WAS AWARE OF NEGATIVE RESULT FOR COVID 19 TEST FROM 06/05/20.
[2020-06-08 20:03] VITALS: BP 140/63
[2020-06-08] MEDS: ATORVASTATIN 20 MG TABLET GT SCH (20:45)
[2020-06-08] MEDS: MULTIVIT, IRON, MIN NO. 8, FA TABLET GT SCH (20:46)
[2020-06-09] MEDS: ALBUTEROL SULFATE 2.5 MG/3 ML NEBU NEB SCH ×4 (01:10→20:14)
[2020-06-09] MEDS: OMEPRAZOLE 20 MG CAPSULE.DR GT SCH ×2 (05:53→17:49)
[2020-06-09] MEDS: VITAL AF 1.2 1,000 ML LIQUID GT PRN (06:28)
[2020-06-09 07:53] VITALS: BP 118/57
[2020-06-09] MEDS: ASPIRIN 81 MG TAB.CHEW GT SCH (08:45)
[2020-06-09] MEDS: NUTRISOURCE FIBER 4 GM PACKET GT SCH (08:46)
[2020-06-09] MEDS: ACIDOPHILUS/BULGARICUS CHEW TAB GT SCH ×2 (08:46→20:42)
[2020-06-09] MEDS: METOPROLOL TARTRATE 25 MG TABLET GT SCH ×2 (08:46→20:43)
[2020-06-09] MEDS: LOSARTAN POTASSIUM 25 MG TABLET GT SCH (08:46)
[2020-06-09] MEDS: COD LIVER OIL/ZINC OXIDE OINT 113 GM TUBE TP SCH ×2 (08:46→20:44)
[2020-06-09] MEDS: HEPARIN SODIUM,PORCINE 5,000 UNITS/ML VIAL SQ SCH ×2 (08:47→21:00)
[2020-06-09] MEDS: HYDROGEN PEROXIDE 3% 118 ML BOTTLE TP SCH ×2 (09:59→21:35)
--- NOTE | 2020-06-09 13:04 | NUR ---
SEEN BY ENOCH [place] AND WITH NNO.
[2020-06-09] MEDS: ATORVASTATIN 20 MG TABLET GT SCH (20:42)
[2020-06-09 20:46] VITALS: BP 127/55
[2020-06-10] MEDS: ALBUTEROL SULFATE 2.5 MG/3 ML NEBU NEB SCH ×4 (02:15→19:05)
[2020-06-10] MEDS: OMEPRAZOLE 20 MG CAPSULE.DR GT SCH ×2 (06:33→17:30)
[2020-06-10] MEDS: VITAL AF 1.2 1,000 ML LIQUID GT PRN (07:24)
[2020-06-10] MEDS: HYDROGEN PEROXIDE 3% 118 ML BOTTLE TP SCH ×2 (07:28→21:49)
[2020-06-10 07:54] VITALS: BP 112/42
[2020-06-10] MEDS: METOPROLOL TARTRATE 25 MG TABLET GT SCH ×2 (09:00→20:25)
[2020-06-10] MEDS: LOSARTAN POTASSIUM 25 MG TABLET GT SCH (09:00)
[2020-06-10] MEDS: ASPIRIN 81 MG TAB.CHEW GT SCH (09:13)
[2020-06-10] MEDS: ACIDOPHILUS/BULGARICUS CHEW TAB GT SCH ×2 (09:14→21:39)
[2020-06-10] MEDS: NUTRISOURCE FIBER 4 GM PACKET GT SCH (09:15)
[2020-06-10] MEDS: HEPARIN SODIUM,PORCINE 5,000 UNITS/ML VIAL SQ SCH ×2 (09:16→20:26)
[2020-06-10] MEDS: COD LIVER OIL/ZINC OXIDE OINT 113 GM TUBE TP SCH ×2 (09:16→20:26)
--- NOTE | 2020-06-10 19:52 | NUR ---
New orders to Give COVID vaccine x 1 carried out.
[2020-06-10] MEDS: MULTIVIT, IRON, MIN NO. 8, FA TABLET GT SCH (20:25)
[2020-06-10 20:37] VITALS: BP 126/65
[2020-06-10] MEDS: ATORVASTATIN 20 MG TABLET GT SCH (21:40)
[2020-06-11] MEDS: VITAL AF 1.2 1,000 ML LIQUID GT PRN ×2 (01:04→23:51)
[2020-06-11] MEDS: ALBUTEROL SULFATE 2.5 MG/3 ML NEBU NEB SCH ×4 (01:07→19:15)
[2020-06-11] MEDS: OMEPRAZOLE 20 MG CAPSULE.DR GT SCH ×2 (05:55→18:00)
[2020-06-11 07:54] VITALS: BP 110/64
[2020-06-11] MEDS: HYDROGEN PEROXIDE 3% 118 ML BOTTLE TP SCH ×2 (08:05→21:29)
[2020-06-11] MEDS: ACIDOPHILUS/BULGARICUS CHEW TAB GT SCH ×2 (09:00→20:44)
[2020-06-11] MEDS: LOSARTAN POTASSIUM 25 MG TABLET GT SCH (09:00)
[2020-06-11] MEDS: NUTRISOURCE FIBER 4 GM PACKET GT SCH (09:00)
[2020-06-11] MEDS: ASPIRIN 81 MG TAB.CHEW GT SCH (09:00)
[2020-06-11] MEDS: METOPROLOL TARTRATE 25 MG TABLET GT SCH ×2 (09:00→20:45)
[2020-06-11] MEDS: COD LIVER OIL/ZINC OXIDE OINT 113 GM TUBE TP SCH ×2 (09:00→20:46)
[2020-06-11] MEDS: HEPARIN SODIUM,PORCINE 5,000 UNITS/ML VIAL SQ SCH ×2 (09:00→20:45)
--- NOTE | 2020-06-11 18:15 | NUR ---
PT'S SON ROSALINDA WAS AWARE THAT PT. HAD COVID 19 VACCINE AND HAD NO A/R AND WELL TOLERATED ON RT. DELTOID.
[2020-06-11 20:00] VITALS: BP 133/71
[2020-06-11] MEDS: ATORVASTATIN 20 MG TABLET GT SCH (20:44)
[~2020-06-12] VITALS: Ht 167.6 cm; Wt 64.4 kg
[2020-06-12] MEDS: ALBUTEROL SULFATE 2.5 MG/3 ML NEBU NEB SCH ×4 (01:14→18:05)
[2020-06-12] MEDS: OMEPRAZOLE 20 MG CAPSULE.DR GT SCH ×2 (06:07→17:39)
[2020-06-12 07:59] VITALS: BP 110/64
[2020-06-12] MEDS: ASPIRIN 81 MG TAB.CHEW GT SCH (08:32)
[2020-06-12] MEDS: ACIDOPHILUS/BULGARICUS CHEW TAB GT SCH ×2 (08:33→21:00)
[2020-06-12] MEDS: LOSARTAN POTASSIUM 25 MG TABLET GT SCH (08:33)
[2020-06-12] MEDS: NUTRISOURCE FIBER 4 GM PACKET GT SCH (08:35)
[2020-06-12] MEDS: COD LIVER OIL/ZINC OXIDE OINT 113 GM TUBE TP SCH ×2 (08:35→21:00)
[2020-06-12] MEDS: METOPROLOL TARTRATE 25 MG TABLET GT SCH ×2 (08:35→21:00)
[2020-06-12] MEDS: HEPARIN SODIUM,PORCINE 5,000 UNITS/ML VIAL SQ SCH ×2 (08:36→21:00)
[2020-06-12] MEDS: HYDROGEN PEROXIDE 3% 118 ML BOTTLE TP SCH ×2 (09:21→21:03)
--- NOTE | 2020-06-12 18:33 | NUR ---
No a/r noted from covid19 vaccine.
[2020-06-12 20:00] VITALS: BP 133/63
[2020-06-12] MEDS: MULTIVIT, IRON, MIN NO. 8, FA TABLET GT SCH (21:00)
[2020-06-12] MEDS: ATORVASTATIN 20 MG TABLET GT SCH (21:00)
[~2020-06-12 23:59] MED LIST: ACETAMINOPHEN 650 MG/20 ML UDC- SA PATIENTS-FEVER ONLY GT PRN; COD LIVER OIL/ZINC OXIDE OINT 113 GM TUBE TP PRN; COVID-19 VACC,MRNA(MODERNA)/PF 100 MCG/0.5 ML VIAL IM ONE; DIATR MEGLU/DIATRIZOATE SODIUM 30 ML BOTTLE ONE; DIATRIZOATE MEGLUMINE 300 ML INFUS..BTL ONE; DOXYCYCLINE HYCLATE 100 MG TABLET PO SCH; HYDROGEN PEROXIDE 3% 118 ML BOTTLE TP PRN; INFLUENZA VACCINE 2020-2021 0.5 ML DISP.SYRIN IM ONE; LIDOCAINE 1%-EPI 1:100,000 20 ML VIAL MC ONE; LOSARTAN POTASSIUM 25 MG TABLET ONE; METOPROLOL TARTRATE 50 MG TABLET GT SCH; NEOMY/BACITRAC/POLYMI OINT 28.35 GM TUBE TOP SCH; POVIDONE-IODINE WASH 236 ML BOTTLE TP ONE; TUBERCULIN,PURIF.PROT.DERIV. 5 TU/0.1 ML TEST ID ONE; VANCOMYCIN IV 1,000 MG in IV DEXTROSE 5% 250 ML IV ONE
[2020-06-13] MEDS: ALBUTEROL SULFATE 2.5 MG/3 ML NEBU NEB SCH ×4 (00:19→20:00)
--- NOTE | 2020-06-13 03:38 | NUR ---
Patient is afebrile, no signs of any adverse reactions noted from the COVID-19 vaccine.
[2020-06-13] MEDS: OMEPRAZOLE 20 MG CAPSULE.DR GT SCH ×2 (06:22→17:35)
[2020-06-13 07:44] VITALS: BP 104/51
[2020-06-13] MEDS: ASPIRIN 81 MG TAB.CHEW GT SCH (08:43)
[2020-06-13] MEDS: METOPROLOL TARTRATE 25 MG TABLET GT SCH ×2 (08:44→20:54)
[2020-06-13] MEDS: NUTRISOURCE FIBER 4 GM PACKET GT SCH (08:44)
[2020-06-13] MEDS: ACIDOPHILUS/BULGARICUS CHEW TAB GT SCH ×2 (08:44→20:53)
[2020-06-13] MEDS: LOSARTAN POTASSIUM 25 MG TABLET GT SCH (08:44)
[2020-06-13] MEDS: COD LIVER OIL/ZINC OXIDE OINT 113 GM TUBE TP SCH ×2 (08:45→20:54)
[2020-06-13] MEDS: HEPARIN SODIUM,PORCINE 5,000 UNITS/ML VIAL SQ SCH ×2 (08:45→21:00)
[2020-06-13] MEDS: HYDROGEN PEROXIDE 3% 118 ML BOTTLE TP SCH ×2 (09:00→21:45)
--- NOTE | 2020-06-13 14:54 | NUR ---
Patient is afebrile, no signs of any adverse reactions noted from the COVID-19 vaccine.
[2020-06-13 20:00] VITALS: BP 122/71
[2020-06-13] MEDS: ATORVASTATIN 20 MG TABLET GT SCH (20:53)
[2020-06-13] MEDS: VITAL AF 1.2 1,000 ML LIQUID GT PRN (22:53)
--- NOTE | 2020-06-13 23:17 | NUR ---
Patient is afebrile, no signs of adverse reaction from Covid-19 vaccine.
[2020-06-14] MEDS: ALBUTEROL SULFATE 2.5 MG/3 ML NEBU NEB SCH ×4 (01:34→19:40)
[2020-06-14] MEDS: OMEPRAZOLE 20 MG CAPSULE.DR GT SCH ×2 (05:51→17:19)
[2020-06-14 08:05] VITALS: BP 124/43
[2020-06-14] MEDS: ASPIRIN 81 MG TAB.CHEW GT SCH (08:39)
[2020-06-14] MEDS: LOSARTAN POTASSIUM 25 MG TABLET GT SCH (08:39)
[2020-06-14] MEDS: ACIDOPHILUS/BULGARICUS CHEW TAB GT SCH ×2 (08:39→20:33)
[2020-06-14] MEDS: HEPARIN SODIUM,PORCINE 5,000 UNITS/ML VIAL SQ SCH ×2 (08:40→21:00)
[2020-06-14] MEDS: METOPROLOL TARTRATE 25 MG TABLET GT SCH ×2 (08:40→20:34)
[2020-06-14] MEDS: NUTRISOURCE FIBER 4 GM PACKET GT SCH (08:40)
[2020-06-14] MEDS: COD LIVER OIL/ZINC OXIDE OINT 113 GM TUBE TP SCH ×2 (08:43→20:34)
[2020-06-14] MEDS: HYDROGEN PEROXIDE 3% 118 ML BOTTLE TP SCH ×2 (10:00→20:36)
[2020-06-14] MEDS: VITAL AF 1.2 1,000 ML LIQUID GT PRN (17:19)
--- NOTE | 2020-06-14 18:33 | NUR ---
No adverse reactions noted from Covid 19 vaccine during shift.
[2020-06-14] MEDS: ATORVASTATIN 20 MG TABLET GT SCH (20:33)
[2020-06-14] MEDS: MULTIVIT, IRON, MIN NO. 8, FA TABLET GT SCH (20:34)
[2020-06-14 22:13] VITALS: BP 119/56
[2020-06-15] MEDS: ALBUTEROL SULFATE 2.5 MG/3 ML NEBU NEB SCH ×4 (01:20→19:50)
[2020-06-15] MEDS: OMEPRAZOLE 20 MG CAPSULE.DR GT SCH ×2 (05:20→17:50)
[2020-06-15 08:11] VITALS: BP 113/48
[2020-06-15] MEDS: ASPIRIN 81 MG TAB.CHEW GT SCH (08:54)
[2020-06-15] MEDS: ACIDOPHILUS/BULGARICUS CHEW TAB GT SCH ×2 (08:55→20:21)
[2020-06-15] MEDS: LOSARTAN POTASSIUM 25 MG TABLET GT SCH (08:55)
[2020-06-15] MEDS: METOPROLOL TARTRATE 25 MG TABLET GT SCH ×2 (08:55→20:25)
[2020-06-15] MEDS: NUTRISOURCE FIBER 4 GM PACKET GT SCH (08:56)
[2020-06-15] MEDS: HEPARIN SODIUM,PORCINE 5,000 UNITS/ML VIAL SQ SCH ×2 (09:00→20:23)
[2020-06-15] MEDS: HYDROGEN PEROXIDE 3% 118 ML BOTTLE TP SCH ×2 (09:00→20:35)
[2020-06-15] MEDS: COD LIVER OIL/ZINC OXIDE OINT 113 GM TUBE TP SCH ×2 (09:01→20:25)
[2020-06-15] MEDS: VITAL AF 1.2 1,000 ML LIQUID GT PRN (13:12)
--- NOTE | 2020-06-15 18:37 | NUR ---
Pt afebrile. No adverse side effects from Covid19 vaccine.
[2020-06-15] MEDS: ATORVASTATIN 20 MG TABLET GT SCH (20:25)
[2020-06-15 22:00] VITALS: BP 124/56
[2020-06-16] MEDS: ALBUTEROL SULFATE 2.5 MG/3 ML NEBU NEB SCH (01:23)
[2020-06-16] MEDS: OMEPRAZOLE 20 MG CAPSULE.DR GT SCH (05:10)
== END | disposition still patient (30) | DRG 189 ==
LOC: SA 06-13
PROVIDERS: ADMIT Internal Medicine Pulmonary Disease; ATTEND Internal Medicine Pulmonary Disease
PROC: 0J973ZZ Drainage of Back Subcutaneous Tissue and Fascia, Percutaneous Approach (ICD-10-PCS; principal; 2020-04-16)
DX: J96.21 Acute and chronic respiratory failure with hypoxia (principal); E87.1 Hypo-osmolality and hyponatremia; J98.11 Atelectasis; L02.212 Cutaneous abscess of back [any part, except buttock and flank]; E46 Unspecified protein-calorie malnutrition; G93.49 Other encephalopathy; K86.2 Cyst of pancreas; I10 Essential (primary) hypertension; Z93.0 Tracheostomy status; I67.2 Cerebral atherosclerosis; I25.10 Atherosclerotic heart disease of native coronary artery without angina pectoris; I25.2 Old myocardial infarction; R13.10 Dysphagia, unspecified; D35.02 Benign neoplasm of left adrenal gland; I69.191 Dysphagia following nontraumatic intracerebral hemorrhage; G93.89 Other specified disorders of brain; I69.118 Other symptoms and signs involving cognitive functions following nontraumatic intracerebral hemorrhage; Z93.1 Gastrostomy status; D64.9 Anemia, unspecified; E88.09 Other disorders of plasma-protein metabolism, not elsewhere classified; Z86.19 Personal history of other infectious and parasitic diseases; R00.1 Bradycardia, unspecified; Z68.22 Body mass index [BMI] 22.0-22.9, adult; Z91.81 History of falling; K64.8 Other hemorrhoids
CPT/HCPCS: 36415; 71045; 74018; 83735; 84100; 84300; 84443; 84550; 85025; 86580; 87070; 90686; 94640; 94664; 95819; A4217; A4663; J1644; J3370; J3490; J7060; Q9958; Q9963; U0003

== ENCOUNTER → 2020-12-12 | Outpatient (CLI) | payer BC | END | disposition home or self-care (01) | LOC: CT 09:47 | PROVIDERS: ATTEND Internal Medicine Pulmonary Disease | DX: I67.82 Cerebral ischemia (principal); G93.89 Other specified disorders of brain; R41.82 Altered mental status, unspecified | CPT/HCPCS: 70450 ==

== ENCOUNTER 2021-07-28 17:00 | Outpatient (CLI) | payer BC | END 2021-07-28 23:59 | disposition home or self-care (01) | LOC: CT 17:00 | PROVIDERS: ATTEND Internal Medicine Pulmonary Disease | DX: G31.9 Degenerative disease of nervous system, unspecified (principal); G93.89 Other specified disorders of brain; R41.82 Altered mental status, unspecified | CPT/HCPCS: 70450 ==

== ENCOUNTER 2021-10-30 07:12 | Outpatient (CLI) | payer BC | END 2021-10-30 23:59 | disposition home or self-care (01) | LOC: CT 07:12 | PROVIDERS: ATTEND Internal Medicine Pulmonary Disease | DX: E27.8 Other specified disorders of adrenal gland (principal); N40.0 Benign prostatic hyperplasia without lower urinary tract symptoms; K80.20 Calculus of gallbladder without cholecystitis without obstruction; K57.30 Diverticulosis of large intestine without perforation or abscess without bleeding; N28.1 Cyst of kidney, acquired; I70.0 Atherosclerosis of aorta; N32.89 Other specified disorders of bladder; I25.10 Atherosclerotic heart disease of native coronary artery without angina pectoris; Z93.1 Gastrostomy status ==

== ENCOUNTER 2022-06-13 | Inpatient (IN) | payer BC ==
[~2022-06-13] VITALS: Ht 167.6 cm; Wt 60.3 kg
[2022-06-15] VITALS (8 sets, daily range): TEMP 97.4–98.1; O2SAT 98
[2022-06-15] MEDS: ALBUTEROL SULFATE 2.5 MG/3 ML NEBU NEB SCH ×3 (07:55→19:30)
[2022-06-15] MEDS ORDERED: REMEDY ESSENTIAL ZINC PASTE 113 GM TP PRN (08:30)
[2022-06-15] MEDS ORDERED: HYDROGEN PEROXIDE 3% 118 ML BOTTLE TP PRN (08:30)
[2022-06-15] MEDS ORDERED: ALBUTEROL SULFATE 2.5 MG/3 ML NEBU NEB PRN (08:30)
[2022-06-15] MEDS ORDERED: ACETAMINOPHEN 650 MG/20 ML UDC- SA PATIENTS-FEVER ONLY GT PRN (08:30)
[2022-06-15] MEDS ORDERED: POLYVINYL ALCOHOL OPHT DROPS 15 ML BOTTLE EACHEYE PRN (08:30)
[2022-06-15] MEDS: METOPROLOL TARTRATE 25 MG TABLET GT SCH ×2 (09:00→21:00)
[2022-06-15] MEDS: ASPIRIN 81 MG TAB.CHEW GT SCH (09:37)
[2022-06-15] MEDS: LOSARTAN POTASSIUM 25 MG TABLET GT SCH (09:37)
[2022-06-15] MEDS: ACIDOPHILUS/BULGARICUS CHEW TAB GT SCH ×2 (09:38→21:48)
[2022-06-15] MEDS: SODIUM CHLORIDE 1,000 MG TABLET GT SCH ×3 (09:39→17:59)
[2022-06-15] MEDS: VITAMINS A AND D OINT 42 GM TUBE TP SCH ×2 (09:39→21:48)
[2022-06-15] MEDS: REMEDY ESSENTIAL ZINC PASTE 113 GM TP SCH ×2 (09:39→21:48)
[2022-06-15] MEDS: CLOPIDOGREL 75 MG TABLET GT SCH (09:39)
[2022-06-15] MEDS: HYDROGEN PEROXIDE 3% 118 ML BOTTLE TP SCH ×2 (09:45→21:10)
[2022-06-15] MEDS: BACLOFEN 20 MG TABLET GT SCH ×2 (13:14→21:48)
[2022-06-15] MEDS: OMEPRAZOLE 20 MG CAPSULE.DR GT SCH (17:59)
[2022-06-15] MEDS: NUTRISOURCE FIBER 4 GM PACKET GT SCH (21:48)
[2022-06-15] MEDS: ATORVASTATIN 20 MG TABLET GT SCH (21:48)
[2022-06-16] VITALS (10 sets, daily range): TEMP 97.6–97.8; O2SAT 98
[2022-06-16] MEDS: ALBUTEROL SULFATE 2.5 MG/3 ML NEBU NEB SCH ×4 (01:30→19:30)
[2022-06-16] MEDS: OMEPRAZOLE 20 MG CAPSULE.DR GT SCH ×2 (05:36→17:40)
[2022-06-16] MEDS: BACLOFEN 20 MG TABLET GT SCH ×3 (05:36→21:01)
[2022-06-16] MEDS: HYDROGEN PEROXIDE 3% 118 ML BOTTLE TP SCH ×2 (07:51→20:40)
[2022-06-16] MEDS: LOSARTAN POTASSIUM 25 MG TABLET GT SCH (08:26)
[2022-06-16] MEDS: ASPIRIN 81 MG TAB.CHEW GT SCH (08:26)
[2022-06-16] MEDS: SODIUM CHLORIDE 1,000 MG TABLET GT SCH ×3 (08:27→17:40)
[2022-06-16] MEDS: ACIDOPHILUS/BULGARICUS CHEW TAB GT SCH ×2 (08:27→20:55)
[2022-06-16] MEDS: METOPROLOL TARTRATE 25 MG TABLET GT SCH ×2 (08:28→20:55)
[2022-06-16] MEDS: REMEDY ESSENTIAL ZINC PASTE 113 GM TP SCH ×2 (08:28→20:57)
[2022-06-16] MEDS: CLOPIDOGREL 75 MG TABLET GT SCH (08:28)
[2022-06-16] MEDS: VITAMINS A AND D OINT 42 GM TUBE TP SCH ×2 (08:28→20:57)
[2022-06-16] MEDS: ATORVASTATIN 20 MG TABLET GT SCH (20:55)
[2022-06-16] MEDS: MULTIVIT, IRON, MIN NO. 8, FA TABLET GT SCH (20:56)
[2022-06-16] MEDS: NUTRISOURCE FIBER 4 GM PACKET GT SCH (20:56)
[2022-06-17] VITALS (10 sets, daily range): TEMP 97.6–98.1; O2SAT 98–99
[2022-06-17] MEDS: ALBUTEROL SULFATE 2.5 MG/3 ML NEBU NEB SCH ×4 (01:33→19:30)
[2022-06-17] MEDS: VITAL AF 1.2 1,000 ML LIQUID GT PRN (01:50)
[2022-06-17] MEDS: BACLOFEN 20 MG TABLET GT SCH ×3 (05:38→21:43)
[2022-06-17] MEDS: OMEPRAZOLE 20 MG CAPSULE.DR GT SCH ×2 (05:38→18:19)
[2022-06-17] MEDS: HYDROGEN PEROXIDE 3% 118 ML BOTTLE TP SCH ×2 (07:18→21:05)
[2022-06-17] MEDS: LOSARTAN POTASSIUM 25 MG TABLET GT SCH (09:00)
[2022-06-17] MEDS: METOPROLOL TARTRATE 25 MG TABLET GT SCH ×2 (09:00→20:46)
[2022-06-17] MEDS: REMEDY ESSENTIAL ZINC PASTE 113 GM TP SCH ×2 (09:00→21:42)
[2022-06-17] MEDS: ACIDOPHILUS/BULGARICUS CHEW TAB GT SCH ×2 (09:00→20:45)
[2022-06-17] MEDS: CLOPIDOGREL 75 MG TABLET GT SCH (09:00)
[2022-06-17] MEDS: ASPIRIN 81 MG TAB.CHEW GT SCH (09:00)
[2022-06-17] MEDS: SODIUM CHLORIDE 1,000 MG TABLET GT SCH ×3 (09:00→17:00)
[2022-06-17] MEDS: VITAMINS A AND D OINT 42 GM TUBE TP SCH ×2 (09:00→21:43)
[2022-06-17] MEDS: NUTRISOURCE FIBER 4 GM PACKET GT SCH (20:45)
[2022-06-17] MEDS: ATORVASTATIN 20 MG TABLET GT SCH (20:45)
[2022-06-18] VITALS (10 sets, daily range): TEMP 97.2–97.8; O2SAT 98–99
[2022-06-18] MEDS: ALBUTEROL SULFATE 2.5 MG/3 ML NEBU NEB SCH ×4 (02:23→19:43)
[2022-06-18] MEDS: OMEPRAZOLE 20 MG CAPSULE.DR GT SCH ×2 (05:54→17:29)
[2022-06-18] MEDS: BACLOFEN 20 MG TABLET GT SCH ×3 (05:54→21:58)
[2022-06-18] MEDS: ASPIRIN 81 MG TAB.CHEW GT SCH (08:22)
[2022-06-18] MEDS: ACIDOPHILUS/BULGARICUS CHEW TAB GT SCH ×2 (08:24→21:57)
[2022-06-18] MEDS: LOSARTAN POTASSIUM 25 MG TABLET GT SCH (08:24)
[2022-06-18] MEDS: HYDROGEN PEROXIDE 3% 118 ML BOTTLE TP SCH ×2 (08:25→21:00)
[2022-06-18] MEDS: METOPROLOL TARTRATE 25 MG TABLET GT SCH ×2 (08:26→21:58)
[2022-06-18] MEDS: VITAMINS A AND D OINT 42 GM TUBE TP SCH ×2 (08:27→21:58)
[2022-06-18] MEDS: SODIUM CHLORIDE 1,000 MG TABLET GT SCH ×3 (08:27→17:29)
[2022-06-18] MEDS: CLOPIDOGREL 75 MG TABLET GT SCH (08:27)
[2022-06-18] MEDS: REMEDY ESSENTIAL ZINC PASTE 113 GM TP SCH ×2 (08:27→21:58)
[2022-06-18] MEDS: ATORVASTATIN 20 MG TABLET GT SCH (21:57)
[2022-06-18] MEDS: NUTRISOURCE FIBER 4 GM PACKET GT SCH (21:58)
[2022-06-18] MEDS: MULTIVIT, IRON, MIN NO. 8, FA TABLET GT SCH (21:58)
[2022-06-19] VITALS (10 sets, daily range): TEMP 97.6–98; O2SAT 98
[2022-06-19] MEDS: ALBUTEROL SULFATE 2.5 MG/3 ML NEBU NEB SCH ×4 (01:40→19:17)
[2022-06-19] MEDS: VITAL AF 1.2 1,000 ML LIQUID GT PRN (04:49)
[2022-06-19] MEDS: OMEPRAZOLE 20 MG CAPSULE.DR GT SCH ×2 (06:11→17:55)
[2022-06-19] MEDS: BACLOFEN 20 MG TABLET GT SCH ×3 (06:11→21:06)
[2022-06-19] MEDS: HYDROGEN PEROXIDE 3% 118 ML BOTTLE TP SCH ×2 (08:40→21:00)
[2022-06-19] MEDS: METOPROLOL TARTRATE 25 MG TABLET GT SCH ×2 (09:00→21:00)
[2022-06-19] MEDS: LOSARTAN POTASSIUM 25 MG TABLET GT SCH (09:00)
[2022-06-19] MEDS: ASPIRIN 81 MG TAB.CHEW GT SCH (09:44)
[2022-06-19] MEDS: VITAMINS A AND D OINT 42 GM TUBE TP SCH ×2 (09:45→21:06)
[2022-06-19] MEDS: REMEDY ESSENTIAL ZINC PASTE 113 GM TP SCH ×2 (09:45→21:06)
[2022-06-19] MEDS: SODIUM CHLORIDE 1,000 MG TABLET GT SCH ×3 (09:45→17:55)
[2022-06-19] MEDS: ACIDOPHILUS/BULGARICUS CHEW TAB GT SCH ×2 (09:45→21:05)
[2022-06-19] MEDS: CLOPIDOGREL 75 MG TABLET GT SCH (09:45)
[2022-06-19] MEDS: ATORVASTATIN 20 MG TABLET GT SCH (21:05)
[2022-06-19] MEDS: NUTRISOURCE FIBER 4 GM PACKET GT SCH (21:06)
[2022-06-20] VITALS (11 sets, daily range): TEMP 97.9–98; O2SAT 98
[2022-06-20] MEDS: ALBUTEROL SULFATE 2.5 MG/3 ML NEBU NEB SCH ×4 (01:40→19:30)
[2022-06-20] MEDS: VITAL AF 1.2 1,000 ML LIQUID GT PRN (05:15)
[2022-06-20] MEDS: OMEPRAZOLE 20 MG CAPSULE.DR GT SCH ×2 (05:15→17:09)
[2022-06-20] MEDS: BACLOFEN 20 MG TABLET GT SCH ×3 (05:15→21:01)
[2022-06-20] MEDS: HYDROGEN PEROXIDE 3% 118 ML BOTTLE TP SCH ×2 (08:11→21:55)
[2022-06-20] MEDS: ASPIRIN 81 MG TAB.CHEW GT SCH (08:17)
[2022-06-20] MEDS: METOPROLOL TARTRATE 25 MG TABLET GT SCH ×2 (08:18→21:00)
[2022-06-20] MEDS: ACIDOPHILUS/BULGARICUS CHEW TAB GT SCH ×2 (08:18→21:00)
[2022-06-20] MEDS: LOSARTAN POTASSIUM 25 MG TABLET GT SCH (08:18)
[2022-06-20] MEDS: SODIUM CHLORIDE 1,000 MG TABLET GT SCH ×3 (08:21→16:41)
[2022-06-20] MEDS: REMEDY ESSENTIAL ZINC PASTE 113 GM TP SCH ×2 (08:23→21:01)
[2022-06-20] MEDS: CLOPIDOGREL 75 MG TABLET GT SCH (08:23)
[2022-06-20] MEDS: VITAMINS A AND D OINT 42 GM TUBE TP SCH ×2 (08:23→21:01)
[2022-06-20] MEDS: ATORVASTATIN 20 MG TABLET GT SCH (21:00)
[2022-06-20] MEDS: MULTIVIT, IRON, MIN NO. 8, FA TABLET GT SCH (21:01)
[2022-06-20] MEDS: NUTRISOURCE FIBER 4 GM PACKET GT SCH (21:01)
[2022-06-21] VITALS (10 sets, daily range): TEMP 97.1–97.5; O2SAT 98
[2022-06-21] MEDS: ALBUTEROL SULFATE 2.5 MG/3 ML NEBU NEB SCH ×4 (01:16→20:00)
[2022-06-21] MEDS: OMEPRAZOLE 20 MG CAPSULE.DR GT SCH ×2 (06:00→17:04)
[2022-06-21] MEDS: BACLOFEN 20 MG TABLET GT SCH ×3 (06:00→22:00)
[2022-06-21] MEDS: VITAL AF 1.2 1,000 ML LIQUID GT PRN (07:27)
[2022-06-21 08:06] LABS: ALANINE AMINOTRANSFERASE 27 U/L (16-63); ALBUMIN 3.1 g/dL (3.4-5.0); ALKALINE PHOSPHATASE 87 U/L (50-136); ASPARTATE AMINOTRANSFERASE 26 U/L (15-37); BILIRUBIN,TOTAL 0.4 mg/dL (0.2-1.0); CALCIUM 8.4 mg/dL (8.5-10.1); CARBON DIOXIDE 23 mmol/L (21-32); CHLORIDE 101 mmol/L (98-107); CREATININE 0.5 mg/dL (0.6-1.3); GLUCOSE 113 mg/dL (74-106); MAGNESIUM 1.9 mg/dL (1.8-2.4); PHOSPHOROUS 3.1 mg/dL (2.5-4.9); POTASSIUM 4.4 mmol/L (3.5-5.1); SODIUM SERUM 134 mmol/L (136-145); TOTAL PROTEIN, SERUM 6.9 g/dL (6.4-8.2); UREA NITROGEN, BLOOD 26 mg/dL (7-18)
[2022-06-21 08:14] LABS: BASOPHILS % (AUTO) 0.7 % (0.0-2.0); EOSINOPHILS # (AUTO) 0.4 K/uL (0.0-0.7); EOSINOPHILS % (AUTO) 8.5 % (0.0-7.0); HEMATOCRIT 36.5 % (36.7-47.1); HEMOGLOBIN 12.4 g/dL (12.5-16.3); LYMPHOCYTES # (AUTO) 1.5 K/uL (0.8-4.8); LYMPHOCYTES % (AUTO) 28.8 % (20.5-51.5); MEAN CORPUSCULAR HEMOGLOBIN 31.8 uug (23.8-33.4); MEAN CORPUSCULAR HGB CONC 34 g/dL (32.5-36.3); MEAN CORPUSCULAR VOLUME 93.9 fL (73.0-96.2); MONOCYTES # (AUTO) 0.3 K/uL (0.1-1.30); MONOCYTES % (AUTO) 6.4 % (0.0-11.0); NEUTROPHILS # (AUTO) 2.8 K/uL (1.8-8.9); NEUTROPHILS % (AUTO) 55.6 % (38.5-71.5); PLATELET COUNT (AUTO) 262 K/uL (152-348); RED BLOOD CELL COUNT(AUTO) 3.89 MIL/uL (4.06-5.63); RED CELL DISTRIBUTION WIDTH 13.3 % (12.1-16.2)
[2022-06-21 08:24] LABS: DIFFERENTIAL COMMENT 1
[2022-06-21] MEDS: HYDROGEN PEROXIDE 3% 118 ML BOTTLE TP SCH ×2 (08:31→21:01)
[2022-06-21] MEDS: ACIDOPHILUS/BULGARICUS CHEW TAB GT SCH ×2 (08:48→21:00)
[2022-06-21] MEDS: LOSARTAN POTASSIUM 25 MG TABLET GT SCH (08:48)
[2022-06-21] MEDS: METOPROLOL TARTRATE 25 MG TABLET GT SCH ×2 (08:48→21:00)
[2022-06-21] MEDS: ASPIRIN 81 MG TAB.CHEW GT SCH (08:48)
[2022-06-21] MEDS: REMEDY ESSENTIAL ZINC PASTE 113 GM TP SCH ×2 (08:49→21:00)
[2022-06-21] MEDS: SODIUM CHLORIDE 1,000 MG TABLET GT SCH ×3 (08:49→16:03)
[2022-06-21] MEDS: CLOPIDOGREL 75 MG TABLET GT SCH (08:49)
[2022-06-21] MEDS: VITAMINS A AND D OINT 42 GM TUBE TP SCH ×2 (08:49→21:00)
[2022-06-21] MEDS: NUTRISOURCE FIBER 4 GM PACKET GT SCH (21:00)
[2022-06-21] MEDS: ATORVASTATIN 20 MG TABLET GT SCH (21:00)
[2022-06-22] VITALS (10 sets, daily range): TEMP 97.6–97.8; O2SAT 98–99
[2022-06-22] MEDS: ALBUTEROL SULFATE 2.5 MG/3 ML NEBU NEB SCH ×4 (00:34→20:20)
[2022-06-22] MEDS: BACLOFEN 20 MG TABLET GT SCH ×3 (05:26→22:12)
[2022-06-22] MEDS: OMEPRAZOLE 20 MG CAPSULE.DR GT SCH ×2 (05:27→17:03)
[2022-06-22] MEDS: diphenhydrAMINE 25 MG/10 ML UDC GT PRN (05:28)
[2022-06-22] MEDS: HYDROGEN PEROXIDE 3% 118 ML BOTTLE TP SCH ×2 (07:58→21:55)
[2022-06-22] MEDS: LOSARTAN POTASSIUM 25 MG TABLET GT SCH (09:00)
[2022-06-22] MEDS: ACIDOPHILUS/BULGARICUS CHEW TAB GT SCH ×2 (09:00→20:29)
[2022-06-22] MEDS: METOPROLOL TARTRATE 25 MG TABLET GT SCH ×2 (09:00→20:36)
[2022-06-22] MEDS: ASPIRIN 81 MG TAB.CHEW GT SCH (09:16)
[2022-06-22] MEDS: SODIUM CHLORIDE 1,000 MG TABLET GT SCH ×3 (09:18→17:03)
[2022-06-22] MEDS: CLOPIDOGREL 75 MG TABLET GT SCH (09:18)
[2022-06-22] MEDS: VITAMINS A AND D OINT 42 GM TUBE TP SCH ×2 (09:18→20:38)
[2022-06-22] MEDS: REMEDY ESSENTIAL ZINC PASTE 113 GM TP SCH ×2 (09:18→20:38)
[2022-06-22] MEDS: VITAL AF 1.2 1,000 ML LIQUID GT PRN (10:44)
[2022-06-22] MEDS: ATORVASTATIN 20 MG TABLET GT SCH (20:30)
[2022-06-22] MEDS: NUTRISOURCE FIBER 4 GM PACKET GT SCH (20:36)
[2022-06-22] MEDS: MULTIVIT, IRON, MIN NO. 8, FA TABLET GT SCH (20:37)
[2022-06-23] VITALS (10 sets, daily range): TEMP 97.8–98.1; O2SAT 98
[2022-06-23] MEDS: ALBUTEROL SULFATE 2.5 MG/3 ML NEBU NEB SCH ×4 (01:08→19:30)
[2022-06-23] MEDS: VITAL AF 1.2 1,000 ML LIQUID GT PRN (05:55)
[2022-06-23] MEDS: OMEPRAZOLE 20 MG CAPSULE.DR GT SCH ×2 (05:55→17:07)
[2022-06-23] MEDS: BACLOFEN 20 MG TABLET GT SCH ×3 (05:55→22:00)
[2022-06-23] MEDS: HYDROGEN PEROXIDE 3% 118 ML BOTTLE TP SCH ×2 (08:43→20:55)
[2022-06-23] MEDS: METOPROLOL TARTRATE 25 MG TABLET GT SCH ×2 (08:44→20:16)
[2022-06-23] MEDS: ASPIRIN 81 MG TAB.CHEW GT SCH (08:44)
[2022-06-23] MEDS: ACIDOPHILUS/BULGARICUS CHEW TAB GT SCH ×2 (08:44→20:15)
[2022-06-23] MEDS: LOSARTAN POTASSIUM 25 MG TABLET GT SCH (08:44)
[2022-06-23] MEDS: CLOPIDOGREL 75 MG TABLET GT SCH (08:45)
[2022-06-23] MEDS: REMEDY ESSENTIAL ZINC PASTE 113 GM TP SCH ×2 (08:45→20:17)
[2022-06-23] MEDS: SODIUM CHLORIDE 1,000 MG TABLET GT SCH ×3 (08:45→17:07)
[2022-06-23] MEDS: VITAMINS A AND D OINT 42 GM TUBE TP SCH ×2 (08:45→20:17)
[2022-06-23] MEDS: ATORVASTATIN 20 MG TABLET GT SCH (20:15)
[2022-06-23] MEDS: NUTRISOURCE FIBER 4 GM PACKET GT SCH (20:16)
[2022-06-24] VITALS (10 sets, daily range): TEMP 97.6–98.4; O2SAT 96–99
[2022-06-24] MEDS: ALBUTEROL SULFATE 2.5 MG/3 ML NEBU NEB SCH ×4 (01:35→20:14)
[2022-06-24] MEDS: VITAL AF 1.2 1,000 ML LIQUID GT PRN (03:34)
[2022-06-24] MEDS: BACLOFEN 20 MG TABLET GT SCH ×3 (05:13→22:00)
[2022-06-24] MEDS: OMEPRAZOLE 20 MG CAPSULE.DR GT SCH ×2 (05:13→17:32)
[2022-06-24] MEDS: ASPIRIN 81 MG TAB.CHEW GT SCH (08:31)
[2022-06-24] MEDS: LOSARTAN POTASSIUM 25 MG TABLET GT SCH (08:31)
[2022-06-24] MEDS: METOPROLOL TARTRATE 25 MG TABLET GT SCH ×2 (08:32→20:21)
[2022-06-24] MEDS: ACIDOPHILUS/BULGARICUS CHEW TAB GT SCH ×2 (08:32→20:21)
[2022-06-24] MEDS: REMEDY ESSENTIAL ZINC PASTE 113 GM TP SCH ×2 (08:33→20:22)
[2022-06-24] MEDS: CLOPIDOGREL 75 MG TABLET GT SCH (08:33)
[2022-06-24] MEDS: SODIUM CHLORIDE 1,000 MG TABLET GT SCH ×3 (08:33→16:39)
[2022-06-24] MEDS: VITAMINS A AND D OINT 42 GM TUBE TP SCH ×2 (08:33→20:22)
[2022-06-24] MEDS: HYDROGEN PEROXIDE 3% 118 ML BOTTLE TP SCH ×2 (09:52→21:03)
[2022-06-24] MEDS: ACETAMINOPHEN 650 MG/20 ML UDC- SA PATIENTS-PAIN ONLY GT PRN (14:13)
[2022-06-24] MEDS: diphenhydrAMINE 25 MG/10 ML UDC GT PRN (20:20)
[2022-06-24] MEDS: NUTRISOURCE FIBER 4 GM PACKET GT SCH (20:21)
[2022-06-24] MEDS: ATORVASTATIN 20 MG TABLET GT SCH (20:21)
[2022-06-24] MEDS: MULTIVIT, IRON, MIN NO. 8, FA TABLET GT SCH (20:22)
[2022-06-25] VITALS (10 sets, daily range): TEMP 97.6–98; O2SAT 96–99
[2022-06-25] MEDS: ALBUTEROL SULFATE 2.5 MG/3 ML NEBU NEB SCH ×4 (01:26→19:43)
[2022-06-25] MEDS: VITAL AF 1.2 1,000 ML LIQUID GT PRN (04:51)
[2022-06-25] MEDS: OMEPRAZOLE 20 MG CAPSULE.DR GT SCH ×2 (05:56→17:54)
[2022-06-25] MEDS: BACLOFEN 20 MG TABLET GT SCH ×3 (05:56→22:28)
[2022-06-25] MEDS: ACIDOPHILUS/BULGARICUS CHEW TAB GT SCH ×2 (08:41→21:00)
[2022-06-25] MEDS: ASPIRIN 81 MG TAB.CHEW GT SCH (08:41)
[2022-06-25] MEDS: SODIUM CHLORIDE 1,000 MG TABLET GT SCH ×3 (08:42→17:54)
[2022-06-25] MEDS: VITAMINS A AND D OINT 42 GM TUBE TP SCH ×2 (08:42→21:00)
[2022-06-25] MEDS: LOSARTAN POTASSIUM 25 MG TABLET GT SCH (08:42)
[2022-06-25] MEDS: CLOPIDOGREL 75 MG TABLET GT SCH (08:42)
[2022-06-25] MEDS: REMEDY ESSENTIAL ZINC PASTE 113 GM TP SCH ×2 (08:42→21:00)
[2022-06-25] MEDS: METOPROLOL TARTRATE 25 MG TABLET GT SCH ×2 (08:43→21:00)
[2022-06-25] MEDS: diphenhydrAMINE 25 MG/10 ML UDC GT PRN (08:50)
[2022-06-25] MEDS: HYDROGEN PEROXIDE 3% 118 ML BOTTLE TP SCH ×2 (09:00→19:43)
[2022-06-25] MEDS: ATORVASTATIN 20 MG TABLET GT SCH (21:00)
[2022-06-25] MEDS: NUTRISOURCE FIBER 4 GM PACKET GT SCH (21:00)
[2022-06-26] VITALS (9 sets, daily range): TEMP 97–97.2; O2SAT 97–99
[2022-06-26] MEDS: ALBUTEROL SULFATE 2.5 MG/3 ML NEBU NEB SCH ×4 (00:43→19:39)
[2022-06-26] MEDS: BACLOFEN 20 MG TABLET GT SCH ×3 (05:48→21:46)
[2022-06-26] MEDS: OMEPRAZOLE 20 MG CAPSULE.DR GT SCH ×2 (05:57→17:42)
[2022-06-26] MEDS: HYDROGEN PEROXIDE 3% 118 ML BOTTLE TP SCH ×2 (07:46→19:39)
[2022-06-26] MEDS: METOPROLOL TARTRATE 25 MG TABLET GT SCH ×2 (09:00→21:38)
[2022-06-26] MEDS: LOSARTAN POTASSIUM 25 MG TABLET GT SCH (09:10)
[2022-06-26] MEDS: ASPIRIN 81 MG TAB.CHEW GT SCH (09:10)
[2022-06-26] MEDS: CLOPIDOGREL 75 MG TABLET GT SCH (09:11)
[2022-06-26] MEDS: ACIDOPHILUS/BULGARICUS CHEW TAB GT SCH ×2 (09:11→21:35)
[2022-06-26] MEDS: SODIUM CHLORIDE 1,000 MG TABLET GT SCH ×3 (09:11→17:42)
[2022-06-26] MEDS: REMEDY ESSENTIAL ZINC PASTE 113 GM TP SCH ×2 (09:11→21:45)
[2022-06-26] MEDS: VITAMINS A AND D OINT 42 GM TUBE TP SCH ×2 (09:12→21:46)
[2022-06-26] MEDS: ATORVASTATIN 20 MG TABLET GT SCH (21:36)
[2022-06-26] MEDS: MULTIVIT, IRON, MIN NO. 8, FA TABLET GT SCH (21:45)
[2022-06-26] MEDS: NUTRISOURCE FIBER 4 GM PACKET GT SCH (21:45)
[2022-06-27] VITALS (9 sets, daily range): TEMP 97.7–98; O2SAT 97–99
[2022-06-27] MEDS: ALBUTEROL SULFATE 2.5 MG/3 ML NEBU NEB SCH ×4 (00:40→19:42)
[2022-06-27] MEDS: OMEPRAZOLE 20 MG CAPSULE.DR GT SCH ×2 (06:17→17:14)
[2022-06-27] MEDS: BACLOFEN 20 MG TABLET GT SCH ×3 (06:17→21:57)
[2022-06-27] MEDS: HYDROGEN PEROXIDE 3% 118 ML BOTTLE TP SCH ×2 (07:40→19:42)
[2022-06-27] MEDS: ASPIRIN 81 MG TAB.CHEW GT SCH (09:43)
[2022-06-27] MEDS: LOSARTAN POTASSIUM 25 MG TABLET GT SCH (09:44)
[2022-06-27] MEDS: ACIDOPHILUS/BULGARICUS CHEW TAB GT SCH ×2 (09:44→21:56)
[2022-06-27] MEDS: METOPROLOL TARTRATE 25 MG TABLET GT SCH ×2 (09:44→21:57)
[2022-06-27] MEDS: CLOPIDOGREL 75 MG TABLET GT SCH (09:46)
[2022-06-27] MEDS: SODIUM CHLORIDE 1,000 MG TABLET GT SCH ×3 (09:46→17:14)
[2022-06-27] MEDS: REMEDY ESSENTIAL ZINC PASTE 113 GM TP SCH ×2 (09:46→21:57)
[2022-06-27] MEDS: VITAMINS A AND D OINT 42 GM TUBE TP SCH ×2 (09:46→21:57)
[2022-06-27] MEDS: diphenhydrAMINE 25 MG/10 ML UDC GT PRN (11:11)
[2022-06-27] MEDS: ATORVASTATIN 20 MG TABLET GT SCH (21:56)
[2022-06-27] MEDS: NUTRISOURCE FIBER 4 GM PACKET GT SCH (21:57)
[2022-06-28] VITALS (10 sets, daily range): TEMP 98.2–98.4; O2SAT 97–99
[2022-06-28] MEDS: ALBUTEROL SULFATE 2.5 MG/3 ML NEBU NEB SCH ×4 (00:51→19:35)
[2022-06-28] MEDS: OMEPRAZOLE 20 MG CAPSULE.DR GT SCH ×2 (05:35→18:16)
[2022-06-28] MEDS: BACLOFEN 20 MG TABLET GT SCH ×3 (05:35→22:00)
[2022-06-28] MEDS: HYDROGEN PEROXIDE 3% 118 ML BOTTLE TP SCH ×2 (07:50→21:00)
[2022-06-28] MEDS: LOSARTAN POTASSIUM 25 MG TABLET GT SCH (09:31)
[2022-06-28] MEDS: ACIDOPHILUS/BULGARICUS CHEW TAB GT SCH ×2 (09:31→21:00)
[2022-06-28] MEDS: ASPIRIN 81 MG TAB.CHEW GT SCH (09:31)
[2022-06-28] MEDS: VITAMINS A AND D OINT 42 GM TUBE TP SCH ×2 (09:32→21:00)
[2022-06-28] MEDS: CLOPIDOGREL 75 MG TABLET GT SCH (09:32)
[2022-06-28] MEDS: REMEDY ESSENTIAL ZINC PASTE 113 GM TP SCH ×2 (09:32→21:00)
[2022-06-28] MEDS: SODIUM CHLORIDE 1,000 MG TABLET GT SCH ×3 (09:32→17:24)
[2022-06-28] MEDS: METOPROLOL TARTRATE 25 MG TABLET GT SCH ×2 (09:32→21:00)
[2022-06-28] MEDS: NUTRISOURCE FIBER 4 GM PACKET GT SCH (21:00)
[2022-06-28] MEDS: MULTIVIT, IRON, MIN NO. 8, FA TABLET GT SCH (21:00)
[2022-06-28] MEDS: ATORVASTATIN 20 MG TABLET GT SCH (21:00)
[2022-06-29] VITALS (10 sets, daily range): TEMP 97.7–98; O2SAT 97–99
[2022-06-29] MEDS: ALBUTEROL SULFATE 2.5 MG/3 ML NEBU NEB SCH ×4 (01:45→19:47)
[2022-06-29] MEDS: OMEPRAZOLE 20 MG CAPSULE.DR GT SCH ×2 (06:21→17:23)
[2022-06-29] MEDS: BACLOFEN 20 MG TABLET GT SCH ×3 (06:21→21:51)
[2022-06-29] MEDS: LOSARTAN POTASSIUM 25 MG TABLET GT SCH (08:38)
[2022-06-29] MEDS: ASPIRIN 81 MG TAB.CHEW GT SCH (08:38)
[2022-06-29] MEDS: ACIDOPHILUS/BULGARICUS CHEW TAB GT SCH ×2 (08:38→20:48)
[2022-06-29] MEDS: METOPROLOL TARTRATE 25 MG TABLET GT SCH ×2 (08:39→20:48)
[2022-06-29] MEDS: CLOPIDOGREL 75 MG TABLET GT SCH (08:39)
[2022-06-29] MEDS: REMEDY ESSENTIAL ZINC PASTE 113 GM TP SCH ×2 (08:39→20:48)
[2022-06-29] MEDS: VITAMINS A AND D OINT 42 GM TUBE TP SCH ×2 (08:39→20:48)
[2022-06-29] MEDS: SODIUM CHLORIDE 1,000 MG TABLET GT SCH ×3 (08:39→17:23)
[2022-06-29] MEDS: HYDROGEN PEROXIDE 3% 118 ML BOTTLE TP SCH ×2 (09:00→20:44)
[2022-06-29] MEDS: ATORVASTATIN 20 MG TABLET GT SCH (20:48)
[2022-06-29] MEDS: NUTRISOURCE FIBER 4 GM PACKET GT SCH (20:48)
[2022-06-30] VITALS (10 sets, daily range): TEMP 97.4–98; O2SAT 97–99
[2022-06-30] MEDS: ALBUTEROL SULFATE 2.5 MG/3 ML NEBU NEB SCH ×4 (00:30→19:08)
[2022-06-30] MEDS: VITAL AF 1.2 1,000 ML LIQUID GT PRN (04:46)
[2022-06-30] MEDS: OMEPRAZOLE 20 MG CAPSULE.DR GT SCH ×2 (05:58→17:04)
[2022-06-30] MEDS: BACLOFEN 20 MG TABLET GT SCH ×3 (05:58→21:54)
[2022-06-30] MEDS: HYDROGEN PEROXIDE 3% 118 ML BOTTLE TP SCH ×2 (07:28→20:51)
[2022-06-30] MEDS: ASPIRIN 81 MG TAB.CHEW GT SCH (09:00)
[2022-06-30] MEDS: VITAMINS A AND D OINT 42 GM TUBE TP SCH ×2 (09:01→20:21)
[2022-06-30] MEDS: CLOPIDOGREL 75 MG TABLET GT SCH (09:01)
[2022-06-30] MEDS: ACIDOPHILUS/BULGARICUS CHEW TAB GT SCH ×2 (09:01→20:17)
[2022-06-30] MEDS: SODIUM CHLORIDE 1,000 MG TABLET GT SCH ×3 (09:01→17:04)
[2022-06-30] MEDS: LOSARTAN POTASSIUM 25 MG TABLET GT SCH (09:01)
[2022-06-30] MEDS: METOPROLOL TARTRATE 25 MG TABLET GT SCH ×2 (09:01→20:18)
[2022-06-30] MEDS: REMEDY ESSENTIAL ZINC PASTE 113 GM TP SCH ×4 (09:01→20:21)
[2022-06-30] MEDS: ATORVASTATIN 20 MG TABLET GT SCH (20:17)
[2022-06-30] MEDS: NUTRISOURCE FIBER 4 GM PACKET GT SCH (20:19)
[2022-06-30] MEDS: MULTIVIT, IRON, MIN NO. 8, FA TABLET GT SCH (20:21)
[2022-07-01] VITALS (11 sets, daily range): TEMP 98.1–98.8; O2SAT 97–99
[2022-07-01] MEDS: ALBUTEROL SULFATE 2.5 MG/3 ML NEBU NEB SCH ×4 (01:05→19:40)
[2022-07-01] MEDS: VITAL AF 1.2 1,000 ML LIQUID GT PRN (03:00)
[2022-07-01] MEDS: BACLOFEN 20 MG TABLET GT SCH ×3 (05:22→21:58)
[2022-07-01] MEDS: OMEPRAZOLE 20 MG CAPSULE.DR GT SCH ×2 (05:22→17:14)
[2022-07-01] MEDS: HYDROGEN PEROXIDE 3% 118 ML BOTTLE TP SCH ×2 (07:36→21:03)
[2022-07-01] MEDS: ASPIRIN 81 MG TAB.CHEW GT SCH (08:30)
[2022-07-01] MEDS: ACIDOPHILUS/BULGARICUS CHEW TAB GT SCH ×2 (08:30→20:08)
[2022-07-01] MEDS: LOSARTAN POTASSIUM 25 MG TABLET GT SCH (08:30)
[2022-07-01] MEDS: METOPROLOL TARTRATE 25 MG TABLET GT SCH ×2 (08:31→20:13)
[2022-07-01] MEDS: REMEDY ESSENTIAL ZINC PASTE 113 GM TP SCH ×4 (08:32→20:10)
[2022-07-01] MEDS: SODIUM CHLORIDE 1,000 MG TABLET GT SCH ×3 (08:32→17:14)
[2022-07-01] MEDS: VITAMINS A AND D OINT 42 GM TUBE TP SCH ×2 (08:32→20:10)
[2022-07-01] MEDS: CLOPIDOGREL 75 MG TABLET GT SCH (08:32)
[2022-07-01] MEDS: NUTRISOURCE FIBER 4 GM PACKET GT SCH (20:08)
[2022-07-01] MEDS: ATORVASTATIN 20 MG TABLET GT SCH (20:12)
[2022-07-02] VITALS (10 sets, daily range): TEMP 97.6–97.7; O2SAT 97–99
[2022-07-02] MEDS: ALBUTEROL SULFATE 2.5 MG/3 ML NEBU NEB SCH ×4 (01:03→19:30)
[2022-07-02] MEDS: BACLOFEN 20 MG TABLET GT SCH ×3 (06:00→21:47)
[2022-07-02] MEDS: OMEPRAZOLE 20 MG CAPSULE.DR GT SCH ×2 (06:00→17:28)
[2022-07-02] MEDS: HYDROGEN PEROXIDE 3% 118 ML BOTTLE TP SCH ×2 (07:18→21:00)
[2022-07-02] MEDS: LOSARTAN POTASSIUM 25 MG TABLET GT SCH (09:00)
[2022-07-02] MEDS: METOPROLOL TARTRATE 25 MG TABLET GT SCH ×2 (09:00→21:00)
[2022-07-02] MEDS: ASPIRIN 81 MG TAB.CHEW GT SCH (09:04)
[2022-07-02] MEDS: ACIDOPHILUS/BULGARICUS CHEW TAB GT SCH ×2 (09:04→20:12)
[2022-07-02] MEDS: CLOPIDOGREL 75 MG TABLET GT SCH (09:06)
[2022-07-02] MEDS: SODIUM CHLORIDE 1,000 MG TABLET GT SCH ×3 (09:06→16:59)
[2022-07-02] MEDS: REMEDY ESSENTIAL ZINC PASTE 113 GM TP SCH ×4 (09:07→20:14)
[2022-07-02] MEDS: VITAMINS A AND D OINT 42 GM TUBE TP SCH ×2 (09:07→20:14)
[2022-07-02] MEDS: ATORVASTATIN 20 MG TABLET GT SCH (20:12)
[2022-07-02] MEDS: MULTIVIT, IRON, MIN NO. 8, FA TABLET GT SCH (20:13)
[2022-07-02] MEDS: NUTRISOURCE FIBER 4 GM PACKET GT SCH (20:13)
[2022-07-03] VITALS (10 sets, daily range): TEMP 97–97.9; O2SAT 97–99
[2022-07-03] MEDS: ALBUTEROL SULFATE 2.5 MG/3 ML NEBU NEB SCH ×4 (01:30→19:42)
[2022-07-03] MEDS: OMEPRAZOLE 20 MG CAPSULE.DR GT SCH ×2 (06:03→17:11)
[2022-07-03] MEDS: BACLOFEN 20 MG TABLET GT SCH ×3 (06:03→22:42)
[2022-07-03] MEDS: VITAL AF 1.2 1,000 ML LIQUID GT PRN (06:03)
[2022-07-03] MEDS: HYDROGEN PEROXIDE 3% 118 ML BOTTLE TP SCH ×2 (08:23→19:42)
[2022-07-03] MEDS: ASPIRIN 81 MG TAB.CHEW GT SCH (09:03)
[2022-07-03] MEDS: LOSARTAN POTASSIUM 25 MG TABLET GT SCH (09:04)
[2022-07-03] MEDS: ACIDOPHILUS/BULGARICUS CHEW TAB GT SCH ×2 (09:04→21:00)
[2022-07-03] MEDS: CLOPIDOGREL 75 MG TABLET GT SCH (09:05)
[2022-07-03] MEDS: SODIUM CHLORIDE 1,000 MG TABLET GT SCH ×3 (09:05→17:11)
[2022-07-03] MEDS: REMEDY ESSENTIAL ZINC PASTE 113 GM TP SCH ×4 (09:05→21:00)
[2022-07-03] MEDS: METOPROLOL TARTRATE 25 MG TABLET GT SCH ×2 (09:05→21:00)
[2022-07-03] MEDS: VITAMINS A AND D OINT 42 GM TUBE TP SCH ×2 (09:06→21:00)
[2022-07-03] MEDS: NUTRISOURCE FIBER 4 GM PACKET GT SCH (21:00)
[2022-07-03] MEDS: ATORVASTATIN 20 MG TABLET GT SCH (21:00)
[2022-07-04] VITALS (10 sets, daily range): TEMP 97.5–98.5; O2SAT 97–99
[2022-07-04] MEDS: ALBUTEROL SULFATE 2.5 MG/3 ML NEBU NEB SCH ×4 (01:54→19:40)
[2022-07-04] MEDS: OMEPRAZOLE 20 MG CAPSULE.DR GT SCH ×2 (06:39→17:18)
[2022-07-04] MEDS: BACLOFEN 20 MG TABLET GT SCH ×3 (06:45→22:12)
[2022-07-04] MEDS: HYDROGEN PEROXIDE 3% 118 ML BOTTLE TP SCH ×2 (09:22→19:40)
[2022-07-04] MEDS: ACIDOPHILUS/BULGARICUS CHEW TAB GT SCH ×2 (09:26→20:17)
[2022-07-04] MEDS: LOSARTAN POTASSIUM 25 MG TABLET GT SCH (09:26)
[2022-07-04] MEDS: ASPIRIN 81 MG TAB.CHEW GT SCH (09:26)
[2022-07-04] MEDS: SODIUM CHLORIDE 1,000 MG TABLET GT SCH ×3 (09:27→17:18)
[2022-07-04] MEDS: REMEDY ESSENTIAL ZINC PASTE 113 GM TP SCH ×4 (09:27→20:18)
[2022-07-04] MEDS: CLOPIDOGREL 75 MG TABLET GT SCH (09:27)
[2022-07-04] MEDS: VITAMINS A AND D OINT 42 GM TUBE TP SCH ×2 (09:27→20:18)
[2022-07-04] MEDS: METOPROLOL TARTRATE 25 MG TABLET GT SCH ×2 (09:27→20:18)
[2022-07-04] MEDS: ATORVASTATIN 20 MG TABLET GT SCH (20:17)
[2022-07-04] MEDS: MULTIVIT, IRON, MIN NO. 8, FA TABLET GT SCH (20:18)
[2022-07-04] MEDS: NUTRISOURCE FIBER 4 GM PACKET GT SCH (20:18)
[2022-07-05] VITALS (10 sets, daily range): TEMP 97.6–98.6; O2SAT 97–99
[2022-07-05] MEDS: ALBUTEROL SULFATE 2.5 MG/3 ML NEBU NEB SCH ×4 (01:30→19:45)
[2022-07-05] MEDS: OMEPRAZOLE 20 MG CAPSULE.DR GT SCH ×2 (05:13→18:06)
[2022-07-05] MEDS: BACLOFEN 20 MG TABLET GT SCH ×3 (05:13→21:58)
[2022-07-05] MEDS: HYDROGEN PEROXIDE 3% 118 ML BOTTLE TP SCH ×2 (08:22→21:31)
[2022-07-05] MEDS: METOPROLOL TARTRATE 25 MG TABLET GT SCH ×2 (09:00→20:19)
[2022-07-05] MEDS: LOSARTAN POTASSIUM 25 MG TABLET GT SCH (09:00)
[2022-07-05] MEDS: ASPIRIN 81 MG TAB.CHEW GT SCH (09:30)
[2022-07-05] MEDS: CLOPIDOGREL 75 MG TABLET GT SCH (09:30)
[2022-07-05] MEDS: ACIDOPHILUS/BULGARICUS CHEW TAB GT SCH ×2 (09:30→20:19)
[2022-07-05] MEDS: REMEDY ESSENTIAL ZINC PASTE 113 GM TP SCH ×4 (09:30→20:19)
[2022-07-05] MEDS: SODIUM CHLORIDE 1,000 MG TABLET GT SCH ×3 (09:30→18:00)
[2022-07-05] MEDS: VITAMINS A AND D OINT 42 GM TUBE TP SCH ×2 (09:31→20:19)
[2022-07-05] MEDS: NUTRISOURCE FIBER 4 GM PACKET GT SCH (20:19)
[2022-07-05] MEDS: ATORVASTATIN 20 MG TABLET GT SCH (20:19)
[2022-07-06] VITALS (10 sets, daily range): TEMP 97.6–98.6; O2SAT 97–99
[2022-07-06] MEDS: ALBUTEROL SULFATE 2.5 MG/3 ML NEBU NEB SCH ×4 (00:48→19:47)
[2022-07-06] MEDS: BACLOFEN 20 MG TABLET GT SCH ×3 (05:33→21:28)
[2022-07-06] MEDS: OMEPRAZOLE 20 MG CAPSULE.DR GT SCH ×2 (05:33→17:24)
[2022-07-06] MEDS: HYDROGEN PEROXIDE 3% 118 ML BOTTLE TP SCH ×2 (07:56→19:48)
[2022-07-06] MEDS: LOSARTAN POTASSIUM 25 MG TABLET GT SCH (08:51)
[2022-07-06] MEDS: ACIDOPHILUS/BULGARICUS CHEW TAB GT SCH ×2 (08:51→20:24)
[2022-07-06] MEDS: METOPROLOL TARTRATE 25 MG TABLET GT SCH ×2 (08:52→20:25)
[2022-07-06] MEDS: CLOPIDOGREL 75 MG TABLET GT SCH (08:54)
[2022-07-06] MEDS: SODIUM CHLORIDE 1,000 MG TABLET GT SCH ×3 (08:54→17:24)
[2022-07-06] MEDS: REMEDY ESSENTIAL ZINC PASTE 113 GM TP SCH ×4 (08:54→20:25)
[2022-07-06] MEDS: VITAMINS A AND D OINT 42 GM TUBE TP SCH ×2 (08:55→20:26)
[2022-07-06] MEDS: VITAL AF 1.2 1,000 ML LIQUID GT PRN (08:55)
[2022-07-06] MEDS: ASPIRIN 81 MG TAB.CHEW GT SCH (09:03)
[2022-07-06] MEDS: ATORVASTATIN 20 MG TABLET GT SCH (20:24)
[2022-07-06] MEDS: NUTRISOURCE FIBER 4 GM PACKET GT SCH (20:25)
[2022-07-06] MEDS: MULTIVIT, IRON, MIN NO. 8, FA TABLET GT SCH (20:25)
[2022-07-07] VITALS (10 sets, daily range): TEMP 97.1–97.9; O2SAT 96–99
[2022-07-07] MEDS: ALBUTEROL SULFATE 2.5 MG/3 ML NEBU NEB SCH ×4 (00:46→19:05)
[2022-07-07] MEDS: VITAL AF 1.2 1,000 ML LIQUID GT PRN (05:17)
[2022-07-07] MEDS: BACLOFEN 20 MG TABLET GT SCH ×3 (06:09→22:00)
[2022-07-07] MEDS: OMEPRAZOLE 20 MG CAPSULE.DR GT SCH ×2 (06:09→17:10)
[2022-07-07] MEDS: ASPIRIN 81 MG TAB.CHEW GT SCH (08:18)
[2022-07-07] MEDS: ACIDOPHILUS/BULGARICUS CHEW TAB GT SCH ×2 (08:18→20:25)
[2022-07-07] MEDS: LOSARTAN POTASSIUM 25 MG TABLET GT SCH (08:18)
[2022-07-07] MEDS: REMEDY ESSENTIAL ZINC PASTE 113 GM TP SCH ×4 (08:19→20:26)
[2022-07-07] MEDS: CLOPIDOGREL 75 MG TABLET GT SCH (08:19)
[2022-07-07] MEDS: METOPROLOL TARTRATE 25 MG TABLET GT SCH ×2 (08:19→20:25)
[2022-07-07] MEDS: VITAMINS A AND D OINT 42 GM TUBE TP SCH ×2 (08:19→20:26)
[2022-07-07] MEDS: SODIUM CHLORIDE 1,000 MG TABLET GT SCH ×3 (08:19→17:10)
[2022-07-07] MEDS: HYDROGEN PEROXIDE 3% 118 ML BOTTLE TP SCH ×2 (08:54→21:00)
[2022-07-07] MEDS: ATORVASTATIN 20 MG TABLET GT SCH (20:25)
[2022-07-07] MEDS: NUTRISOURCE FIBER 4 GM PACKET GT SCH (20:25)
[2022-07-08] VITALS (9 sets, daily range): TEMP 97.6; O2SAT 97–99
[2022-07-08] MEDS: ALBUTEROL SULFATE 2.5 MG/3 ML NEBU NEB SCH ×4 (01:44→19:38)
[2022-07-08] MEDS: VITAL AF 1.2 1,000 ML LIQUID GT PRN (05:05)
[2022-07-08] MEDS: OMEPRAZOLE 20 MG CAPSULE.DR GT SCH ×2 (06:07→18:28)
[2022-07-08] MEDS: BACLOFEN 20 MG TABLET GT SCH ×3 (06:07→21:06)
[2022-07-08] MEDS: METOPROLOL TARTRATE 25 MG TABLET GT SCH ×2 (09:00→20:36)
[2022-07-08] MEDS: LOSARTAN POTASSIUM 25 MG TABLET GT SCH (09:00)
[2022-07-08] MEDS: ASPIRIN 81 MG TAB.CHEW GT SCH (09:22)
[2022-07-08] MEDS: ACIDOPHILUS/BULGARICUS CHEW TAB GT SCH ×2 (09:24→20:36)
[2022-07-08] MEDS: SODIUM CHLORIDE 1,000 MG TABLET GT SCH ×3 (09:26→17:06)
[2022-07-08] MEDS: CLOPIDOGREL 75 MG TABLET GT SCH (09:26)
[2022-07-08] MEDS: REMEDY ESSENTIAL ZINC PASTE 113 GM TP SCH ×4 (09:27→20:37)
[2022-07-08] MEDS: VITAMINS A AND D OINT 42 GM TUBE TP SCH ×2 (09:27→20:37)
[2022-07-08] MEDS: HYDROGEN PEROXIDE 3% 118 ML BOTTLE TP SCH ×2 (09:40→19:38)
[2022-07-08] MEDS: ATORVASTATIN 20 MG TABLET GT SCH (20:36)
[2022-07-08] MEDS: NUTRISOURCE FIBER 4 GM PACKET GT SCH (20:37)
[2022-07-08] MEDS: MULTIVIT, IRON, MIN NO. 8, FA TABLET GT SCH (20:37)
[2022-07-08] MEDS: diphenhydrAMINE 25 MG/10 ML UDC GT PRN (21:06)
[2022-07-09] VITALS (9 sets, daily range): TEMP 97.2–98.1; O2SAT 97–99
[2022-07-09] MEDS: ALBUTEROL SULFATE 2.5 MG/3 ML NEBU NEB SCH ×4 (01:02→19:45)
[2022-07-09] MEDS: VITAL AF 1.2 1,000 ML LIQUID GT PRN (04:49)
[2022-07-09] MEDS: BACLOFEN 20 MG TABLET GT SCH ×3 (05:29→21:48)
[2022-07-09] MEDS: OMEPRAZOLE 20 MG CAPSULE.DR GT SCH ×2 (05:29→18:26)
[2022-07-09] MEDS: METOPROLOL TARTRATE 25 MG TABLET GT SCH ×2 (09:00→21:00)
[2022-07-09] MEDS: LOSARTAN POTASSIUM 25 MG TABLET GT SCH (09:00)
[2022-07-09] MEDS: HYDROGEN PEROXIDE 3% 118 ML BOTTLE TP SCH ×2 (09:26→19:45)
[2022-07-09] MEDS: ASPIRIN 81 MG TAB.CHEW GT SCH (09:28)
[2022-07-09] MEDS: ACIDOPHILUS/BULGARICUS CHEW TAB GT SCH ×2 (09:30→21:00)
[2022-07-09] MEDS: REMEDY ESSENTIAL ZINC PASTE 113 GM TP SCH ×4 (09:31→21:00)
[2022-07-09] MEDS: CLOPIDOGREL 75 MG TABLET GT SCH (09:31)
[2022-07-09] MEDS: SODIUM CHLORIDE 1,000 MG TABLET GT SCH ×3 (09:31→17:39)
[2022-07-09] MEDS: VITAMINS A AND D OINT 42 GM TUBE TP SCH ×2 (09:32→21:00)
[2022-07-09] MEDS: NUTRISOURCE FIBER 4 GM PACKET GT SCH (21:00)
[2022-07-09] MEDS: ATORVASTATIN 20 MG TABLET GT SCH (21:00)
[2022-07-10] VITALS (10 sets, daily range): TEMP 97.6–98.1; O2SAT 98–99
[2022-07-10] MEDS: ALBUTEROL SULFATE 2.5 MG/3 ML NEBU NEB SCH ×4 (00:50→19:41)
[2022-07-10] MEDS: BACLOFEN 20 MG TABLET GT SCH ×3 (05:25→21:46)
[2022-07-10] MEDS: OMEPRAZOLE 20 MG CAPSULE.DR GT SCH ×2 (05:25→17:28)
[2022-07-10] MEDS: VITAL AF 1.2 1,000 ML LIQUID GT PRN (07:22)
[2022-07-10] MEDS: HYDROGEN PEROXIDE 3% 118 ML BOTTLE TP SCH ×2 (07:30→19:41)
[2022-07-10] MEDS: ASPIRIN 81 MG TAB.CHEW GT SCH (09:10)
[2022-07-10] MEDS: ACIDOPHILUS/BULGARICUS CHEW TAB GT SCH ×2 (09:10→21:45)
[2022-07-10] MEDS: LOSARTAN POTASSIUM 25 MG TABLET GT SCH (09:17)
[2022-07-10] MEDS: METOPROLOL TARTRATE 25 MG TABLET GT SCH ×2 (09:17→21:45)
[2022-07-10] MEDS: SODIUM CHLORIDE 1,000 MG TABLET GT SCH ×3 (09:17→17:28)
[2022-07-10] MEDS: CLOPIDOGREL 75 MG TABLET GT SCH (09:17)
[2022-07-10] MEDS: REMEDY ESSENTIAL ZINC PASTE 113 GM TP SCH ×4 (09:17→21:46)
[2022-07-10] MEDS: VITAMINS A AND D OINT 42 GM TUBE TP SCH ×2 (09:18→21:46)
[2022-07-10] MEDS: NUTRISOURCE FIBER 4 GM PACKET GT SCH (21:45)
[2022-07-10] MEDS: MULTIVIT, IRON, MIN NO. 8, FA TABLET GT SCH (21:45)
[2022-07-10] MEDS: ATORVASTATIN 20 MG TABLET GT SCH (21:45)
[2022-07-10] MEDS: diphenhydrAMINE 25 MG/10 ML UDC GT PRN (21:53)
[2022-07-11] VITALS (11 sets, daily range): TEMP 97.6–98.7; O2SAT 98–99
[2022-07-11] MEDS: ALBUTEROL SULFATE 2.5 MG/3 ML NEBU NEB SCH ×4 (01:18→19:38)
[2022-07-11] MEDS: OMEPRAZOLE 20 MG CAPSULE.DR GT SCH ×2 (05:15→17:15)
[2022-07-11] MEDS: BACLOFEN 20 MG TABLET GT SCH ×3 (05:15→22:00)
[2022-07-11] MEDS: HYDROGEN PEROXIDE 3% 118 ML BOTTLE TP SCH ×2 (09:00→19:38)
[2022-07-11] MEDS: ASPIRIN 81 MG TAB.CHEW GT SCH (09:08)
[2022-07-11] MEDS: CLOPIDOGREL 75 MG TABLET GT SCH (09:09)
[2022-07-11] MEDS: SODIUM CHLORIDE 1,000 MG TABLET GT SCH ×3 (09:09→17:15)
[2022-07-11] MEDS: LOSARTAN POTASSIUM 25 MG TABLET GT SCH (09:09)
[2022-07-11] MEDS: ACIDOPHILUS/BULGARICUS CHEW TAB GT SCH ×2 (09:09→20:11)
[2022-07-11] MEDS: METOPROLOL TARTRATE 25 MG TABLET GT SCH ×2 (09:09→20:12)
[2022-07-11] MEDS: REMEDY ESSENTIAL ZINC PASTE 113 GM TP SCH ×4 (09:10→20:13)
[2022-07-11] MEDS: VITAMINS A AND D OINT 42 GM TUBE TP SCH ×2 (09:10→20:13)
[2022-07-11] MEDS: ATORVASTATIN 20 MG TABLET GT SCH (20:11)
[2022-07-11] MEDS: NUTRISOURCE FIBER 4 GM PACKET GT SCH (20:12)
[2022-07-12] VITALS (10 sets, daily range): TEMP 97.8–98.4; O2SAT 97–99
[2022-07-12] MEDS: ALBUTEROL SULFATE 2.5 MG/3 ML NEBU NEB SCH ×4 (00:50→19:32)
[2022-07-12] MEDS: VITAL AF 1.2 1,000 ML LIQUID GT PRN (02:03)
[2022-07-12] MEDS: OMEPRAZOLE 20 MG CAPSULE.DR GT SCH ×2 (05:31→17:13)
[2022-07-12] MEDS: BACLOFEN 20 MG TABLET GT SCH ×3 (05:31→21:26)
[2022-07-12] MEDS: HYDROGEN PEROXIDE 3% 118 ML BOTTLE TP SCH ×2 (09:00→19:32)
[2022-07-12] MEDS: ASPIRIN 81 MG TAB.CHEW GT SCH (09:23)
[2022-07-12] MEDS: LOSARTAN POTASSIUM 25 MG TABLET GT SCH (09:24)
[2022-07-12] MEDS: ACIDOPHILUS/BULGARICUS CHEW TAB GT SCH ×2 (09:24→20:51)
[2022-07-12] MEDS: REMEDY ESSENTIAL ZINC PASTE 113 GM TP SCH ×4 (09:25→20:52)
[2022-07-12] MEDS: VITAMINS A AND D OINT 42 GM TUBE TP SCH ×2 (09:25→20:52)
[2022-07-12] MEDS: CLOPIDOGREL 75 MG TABLET GT SCH (09:25)
[2022-07-12] MEDS: METOPROLOL TARTRATE 25 MG TABLET GT SCH ×2 (09:25→20:51)
[2022-07-12] MEDS: diphenhydrAMINE 25 MG/10 ML UDC GT PRN (09:25)
[2022-07-12] MEDS: SODIUM CHLORIDE 1,000 MG TABLET GT SCH ×3 (09:25→17:13)
[2022-07-12] MEDS: MULTIVIT, IRON, MIN NO. 8, FA TABLET GT SCH (20:51)
[2022-07-12] MEDS: ATORVASTATIN 20 MG TABLET GT SCH (20:51)
[2022-07-12] MEDS: NUTRISOURCE FIBER 4 GM PACKET GT SCH (20:51)
[2022-07-13] VITALS (10 sets, daily range): TEMP 97.6–98; O2SAT 96–99
[2022-07-13] MEDS: VITAL AF 1.2 1,000 ML LIQUID GT PRN
[2022-07-13] MEDS: ALBUTEROL SULFATE 2.5 MG/3 ML NEBU NEB SCH ×4 (00:40→19:45)
[2022-07-13] MEDS: BACLOFEN 20 MG TABLET GT SCH ×3 (05:16→21:46)
[2022-07-13] MEDS: OMEPRAZOLE 20 MG CAPSULE.DR GT SCH ×2 (05:16→17:32)
[2022-07-13] MEDS: HYDROGEN PEROXIDE 3% 118 ML BOTTLE TP SCH ×2 (07:37→19:45)
[2022-07-13] MEDS: ACIDOPHILUS/BULGARICUS CHEW TAB GT SCH ×2 (08:27→21:45)
[2022-07-13] MEDS: VITAMINS A AND D OINT 42 GM TUBE TP SCH ×2 (08:27→21:46)
[2022-07-13] MEDS: CLOPIDOGREL 75 MG TABLET GT SCH (08:27)
[2022-07-13] MEDS: METOPROLOL TARTRATE 25 MG TABLET GT SCH ×2 (08:27→21:00)
[2022-07-13] MEDS: LOSARTAN POTASSIUM 25 MG TABLET GT SCH (08:27)
[2022-07-13] MEDS: REMEDY ESSENTIAL ZINC PASTE 113 GM TP SCH ×4 (08:27→21:46)
[2022-07-13] MEDS: SODIUM CHLORIDE 1,000 MG TABLET GT SCH ×3 (08:27→17:32)
[2022-07-13] MEDS: ASPIRIN 81 MG TAB.CHEW GT SCH (08:27)
[2022-07-13] MEDS: ATORVASTATIN 20 MG TABLET GT SCH (21:45)
[2022-07-13] MEDS: NUTRISOURCE FIBER 4 GM PACKET GT SCH (21:46)
[2022-07-14] VITALS (10 sets, daily range): TEMP 98.2–98.6; O2SAT 96–99
[2022-07-14] MEDS: ALBUTEROL SULFATE 2.5 MG/3 ML NEBU NEB SCH ×4 (00:41→19:08)
[2022-07-14] MEDS: BACLOFEN 20 MG TABLET GT SCH ×3 (05:38→21:00)
[2022-07-14] MEDS: OMEPRAZOLE 20 MG CAPSULE.DR GT SCH ×2 (05:38→17:57)
[2022-07-14] MEDS: HYDROGEN PEROXIDE 3% 118 ML BOTTLE TP SCH ×2 (07:35→21:38)
[2022-07-14] MEDS: ASPIRIN 81 MG TAB.CHEW GT SCH (08:53)
[2022-07-14] MEDS: LOSARTAN POTASSIUM 25 MG TABLET GT SCH (08:53)
[2022-07-14] MEDS: ACIDOPHILUS/BULGARICUS CHEW TAB GT SCH ×2 (08:53→20:16)
[2022-07-14] MEDS: SODIUM CHLORIDE 1,000 MG TABLET GT SCH ×3 (08:54→17:57)
[2022-07-14] MEDS: METOPROLOL TARTRATE 25 MG TABLET GT SCH ×2 (08:54→21:00)
[2022-07-14] MEDS: CLOPIDOGREL 75 MG TABLET GT SCH (08:54)
[2022-07-14] MEDS: VITAMINS A AND D OINT 42 GM TUBE TP SCH ×2 (09:00→20:09)
[2022-07-14] MEDS: REMEDY ESSENTIAL ZINC PASTE 113 GM TP SCH ×2 (09:00→20:09)
[2022-07-14] MEDS: MULTIVIT, IRON, MIN NO. 8, FA TABLET GT SCH (20:09)
[2022-07-14] MEDS: NUTRISOURCE FIBER 4 GM PACKET GT SCH (20:09)
[2022-07-14] MEDS: ATORVASTATIN 20 MG TABLET GT SCH (20:16)
[2022-07-15] VITALS (11 sets, daily range): TEMP 97.8–98; O2SAT 96–99
[2022-07-15] MEDS: ALBUTEROL SULFATE 2.5 MG/3 ML NEBU NEB SCH ×4 (01:55→19:39)
[2022-07-15] MEDS: OMEPRAZOLE 20 MG CAPSULE.DR GT SCH ×2 (05:59→17:18)
[2022-07-15] MEDS: BACLOFEN 20 MG TABLET GT SCH ×3 (05:59→21:10)
[2022-07-15 07:35] LABS: BASOPHILS % (AUTO) 0.5 % (0.0-2.0); EOSINOPHILS # (AUTO) 0.4 K/uL (0.0-0.7); HEMATOCRIT 37.3 % (36.7-47.1); HEMOGLOBIN 12.7 g/dL (12.5-16.3); LYMPHOCYTES # (AUTO) 1.9 K/uL (0.8-4.8); LYMPHOCYTES % (AUTO) 31.4 % (20.5-51.5); MEAN CORPUSCULAR HEMOGLOBIN 31.9 uug (23.8-33.4); MEAN CORPUSCULAR HGB CONC 34 g/dL (32.5-36.3); MEAN CORPUSCULAR VOLUME 93.3 fL (73.0-96.2); MONOCYTES # (AUTO) 0.5 K/uL (0.1-1.30); MONOCYTES % (AUTO) 7.4 % (0.0-11.0); NEUTROPHILS # (AUTO) 3.3 K/uL (1.8-8.9); NEUTROPHILS % (AUTO) 53.7 % (38.5-71.5); PLATELET COUNT (AUTO) 237 K/uL (152-348); RED BLOOD CELL COUNT(AUTO) 3.99 MIL/uL (4.06-5.63); RED CELL DISTRIBUTION WIDTH 13.3 % (12.1-16.2); WHITE BLOOD COUNT (AUTO) 6.1 K/uL (3.6-10.2)
[2022-07-15 07:50] LABS: DIFFERENTIAL COMMENT 1
[2022-07-15 07:55] LABS: CALCIUM 9.1 mg/dL (8.5-10.1); CREATININE 0.6 mg/dL (0.6-1.3); PHOSPHOROUS 3.3 mg/dL (2.5-4.9); POTASSIUM 4.2 mmol/L (3.5-5.1)
[2022-07-15] MEDS: HYDROGEN PEROXIDE 3% 118 ML BOTTLE TP SCH ×2 (09:00→19:39)
[2022-07-15] MEDS: ASPIRIN 81 MG TAB.CHEW GT SCH (09:51)
[2022-07-15] MEDS: LOSARTAN POTASSIUM 25 MG TABLET GT SCH (09:51)
[2022-07-15] MEDS: ACIDOPHILUS/BULGARICUS CHEW TAB GT SCH ×2 (09:51→21:09)
[2022-07-15] MEDS: METOPROLOL TARTRATE 25 MG TABLET GT SCH ×2 (09:52→21:09)
[2022-07-15] MEDS: VITAMINS A AND D OINT 42 GM TUBE TP SCH ×2 (09:52→21:10)
[2022-07-15] MEDS: SODIUM CHLORIDE 1,000 MG TABLET GT SCH ×3 (09:52→17:18)
[2022-07-15] MEDS: CLOPIDOGREL 75 MG TABLET GT SCH (09:52)
[2022-07-15] MEDS: REMEDY ESSENTIAL ZINC PASTE 113 GM TP SCH ×2 (09:52→21:10)
[2022-07-15] MEDS: ATORVASTATIN 20 MG TABLET GT SCH (21:09)
[2022-07-15] MEDS: NUTRISOURCE FIBER 4 GM PACKET GT SCH (21:09)
[2022-07-16] VITALS (10 sets, daily range): TEMP 97.8–97.9; O2SAT 98–99
[2022-07-16] MEDS: ALBUTEROL SULFATE 2.5 MG/3 ML NEBU NEB SCH ×4 (00:50→19:06)
[2022-07-16] MEDS: OMEPRAZOLE 20 MG CAPSULE.DR GT SCH ×2 (05:32→17:08)
[2022-07-16] MEDS: BACLOFEN 20 MG TABLET GT SCH ×3 (05:32→21:18)
[2022-07-16] MEDS: HYDROGEN PEROXIDE 3% 118 ML BOTTLE TP SCH ×2 (07:35→21:25)
[2022-07-16] MEDS: ASPIRIN 81 MG TAB.CHEW GT SCH (09:15)
[2022-07-16] MEDS: METOPROLOL TARTRATE 25 MG TABLET GT SCH ×2 (09:15→21:18)
[2022-07-16] MEDS: CLOPIDOGREL 75 MG TABLET GT SCH (09:15)
[2022-07-16] MEDS: SODIUM CHLORIDE 1,000 MG TABLET GT SCH ×3 (09:15→17:08)
[2022-07-16] MEDS: VITAMINS A AND D OINT 42 GM TUBE TP SCH ×2 (09:15→21:18)
[2022-07-16] MEDS: REMEDY ESSENTIAL ZINC PASTE 113 GM TP SCH ×2 (09:15→21:18)
[2022-07-16] MEDS: ACIDOPHILUS/BULGARICUS CHEW TAB GT SCH ×2 (09:15→21:18)
[2022-07-16] MEDS: LOSARTAN POTASSIUM 25 MG TABLET GT SCH (09:15)
[2022-07-16] MEDS: MULTIVIT, IRON, MIN NO. 8, FA TABLET GT SCH (21:18)
[2022-07-16] MEDS: ATORVASTATIN 20 MG TABLET GT SCH (21:18)
[2022-07-16] MEDS: NUTRISOURCE FIBER 4 GM PACKET GT SCH (21:18)
[2022-07-17] VITALS (10 sets, daily range): TEMP 97.2–97.9; O2SAT 98–99
[2022-07-17] MEDS: ALBUTEROL SULFATE 2.5 MG/3 ML NEBU NEB SCH ×4 (01:10→19:18)
[2022-07-17] MEDS: OMEPRAZOLE 20 MG CAPSULE.DR GT SCH ×2 (05:14→17:24)
[2022-07-17] MEDS: BACLOFEN 20 MG TABLET GT SCH ×3 (05:14→21:52)
[2022-07-17] MEDS: HYDROGEN PEROXIDE 3% 118 ML BOTTLE TP SCH ×2 (08:23→19:00)
[2022-07-17] MEDS: ASPIRIN 81 MG TAB.CHEW GT SCH (08:28)
[2022-07-17] MEDS: ACIDOPHILUS/BULGARICUS CHEW TAB GT SCH ×2 (08:36→21:51)
[2022-07-17] MEDS: LOSARTAN POTASSIUM 25 MG TABLET GT SCH (08:36)
[2022-07-17] MEDS: METOPROLOL TARTRATE 25 MG TABLET GT SCH ×2 (08:36→21:51)
[2022-07-17] MEDS: REMEDY ESSENTIAL ZINC PASTE 113 GM TP SCH ×2 (08:39→21:52)
[2022-07-17] MEDS: SODIUM CHLORIDE 1,000 MG TABLET GT SCH ×3 (08:39→17:24)
[2022-07-17] MEDS: VITAMINS A AND D OINT 42 GM TUBE TP SCH ×2 (08:39→21:52)
[2022-07-17] MEDS: CLOPIDOGREL 75 MG TABLET GT SCH (08:39)
[2022-07-17] MEDS ORDERED: NEOMY/BACITRA/POLYMYXIN B OINT UD PACKET TP SCH (09:00)
[2022-07-17] MEDS: ATORVASTATIN 20 MG TABLET GT SCH (21:51)
[2022-07-17] MEDS: NEOMY/BACITRAC/POLYMI OINT 28.35 GM TUBE TOP SCH (21:51)
[2022-07-17] MEDS: NUTRISOURCE FIBER 4 GM PACKET GT SCH (21:51)
[2022-07-18] VITALS (10 sets, daily range): TEMP 97.6–98.8; O2SAT 97–99
[2022-07-18] MEDS: ALBUTEROL SULFATE 2.5 MG/3 ML NEBU NEB SCH ×4 (01:09→20:20)
[2022-07-18] MEDS: BACLOFEN 20 MG TABLET GT SCH ×3 (06:00→21:39)
[2022-07-18] MEDS: OMEPRAZOLE 20 MG CAPSULE.DR GT SCH ×2 (06:00→17:19)
[2022-07-18] MEDS: HYDROGEN PEROXIDE 3% 118 ML BOTTLE TP SCH ×2 (08:29→21:03)
[2022-07-18] MEDS: METOPROLOL TARTRATE 25 MG TABLET GT SCH ×2 (09:00→21:38)
[2022-07-18] MEDS: ASPIRIN 81 MG TAB.CHEW GT SCH (09:52)
[2022-07-18] MEDS: VITAMINS A AND D OINT 42 GM TUBE TP SCH ×2 (09:53→21:39)
[2022-07-18] MEDS: REMEDY ESSENTIAL ZINC PASTE 113 GM TP SCH ×2 (09:53→21:39)
[2022-07-18] MEDS: ACIDOPHILUS/BULGARICUS CHEW TAB GT SCH ×2 (09:53→21:37)
[2022-07-18] MEDS: NEOMY/BACITRAC/POLYMI OINT 28.35 GM TUBE TOP SCH ×2 (09:53→21:39)
[2022-07-18] MEDS: SODIUM CHLORIDE 1,000 MG TABLET GT SCH ×3 (09:56→17:16)
[2022-07-18] MEDS: LOSARTAN POTASSIUM 25 MG TABLET GT SCH (09:56)
[2022-07-18] MEDS: CLOPIDOGREL 75 MG TABLET GT SCH (09:57)
[2022-07-18] MEDS: VITAL AF 1.2 1,000 ML LIQUID GT PRN (11:07)
[2022-07-18] MEDS: ATORVASTATIN 20 MG TABLET GT SCH (21:37)
[2022-07-18] MEDS: NUTRISOURCE FIBER 4 GM PACKET GT SCH (21:38)
[2022-07-18] MEDS: MULTIVIT, IRON, MIN NO. 8, FA TABLET GT SCH (21:39)
[2022-07-19] VITALS (10 sets, daily range): TEMP 97.5–97.6; O2SAT 97–99
[2022-07-19] MEDS: ALBUTEROL SULFATE 2.5 MG/3 ML NEBU NEB SCH ×4 (01:20→19:28)
[2022-07-19] MEDS: BACLOFEN 20 MG TABLET GT SCH ×3 (05:41→22:42)
[2022-07-19] MEDS: VITAL AF 1.2 1,000 ML LIQUID GT PRN (05:41)
[2022-07-19] MEDS: OMEPRAZOLE 20 MG CAPSULE.DR GT SCH ×2 (05:41→17:19)
[2022-07-19] MEDS: HYDROGEN PEROXIDE 3% 118 ML BOTTLE TP SCH ×2 (08:04→21:31)
[2022-07-19] MEDS: ASPIRIN 81 MG TAB.CHEW GT SCH (08:25)
[2022-07-19] MEDS: ACIDOPHILUS/BULGARICUS CHEW TAB GT SCH ×2 (08:25→21:00)
[2022-07-19] MEDS: LOSARTAN POTASSIUM 25 MG TABLET GT SCH (08:30)
[2022-07-19] MEDS: METOPROLOL TARTRATE 25 MG TABLET GT SCH ×2 (08:31→21:00)
[2022-07-19] MEDS: CLOPIDOGREL 75 MG TABLET GT SCH (08:31)
[2022-07-19] MEDS: SODIUM CHLORIDE 1,000 MG TABLET GT SCH ×3 (08:31→17:19)
[2022-07-19] MEDS: VITAMINS A AND D OINT 42 GM TUBE TP SCH ×2 (08:32→21:00)
[2022-07-19] MEDS: REMEDY ESSENTIAL ZINC PASTE 113 GM TP SCH ×2 (08:32→21:00)
[2022-07-19] MEDS: NEOMY/BACITRAC/POLYMI OINT 28.35 GM TUBE TOP SCH ×2 (08:32→21:00)
[2022-07-19] MEDS: NUTRISOURCE FIBER 4 GM PACKET GT SCH (21:00)
[2022-07-19] MEDS: ATORVASTATIN 20 MG TABLET GT SCH (21:00)
[2022-07-20] VITALS (10 sets, daily range): TEMP 97–98; O2SAT 97–99
[2022-07-20] MEDS: ALBUTEROL SULFATE 2.5 MG/3 ML NEBU NEB SCH ×4 (01:39→19:27)
[2022-07-20] MEDS: BACLOFEN 20 MG TABLET GT SCH ×3 (06:04→22:14)
[2022-07-20] MEDS: OMEPRAZOLE 20 MG CAPSULE.DR GT SCH ×2 (06:04→17:13)
[2022-07-20] MEDS: HYDROGEN PEROXIDE 3% 118 ML BOTTLE TP SCH ×2 (08:07→19:27)
[2022-07-20] MEDS: SODIUM CHLORIDE 1,000 MG TABLET GT SCH ×3 (09:15→17:13)
[2022-07-20] MEDS: CLOPIDOGREL 75 MG TABLET GT SCH (09:15)
[2022-07-20] MEDS: METOPROLOL TARTRATE 25 MG TABLET GT SCH ×2 (09:34→21:00)
[2022-07-20] MEDS: NEOMY/BACITRAC/POLYMI OINT 28.35 GM TUBE TOP SCH ×2 (09:34→21:00)
[2022-07-20] MEDS: ACIDOPHILUS/BULGARICUS CHEW TAB GT SCH ×2 (09:34→21:00)
[2022-07-20] MEDS: ASPIRIN 81 MG TAB.CHEW GT SCH (09:34)
[2022-07-20] MEDS: REMEDY ESSENTIAL ZINC PASTE 113 GM TP SCH ×2 (09:34→21:00)
[2022-07-20] MEDS: LOSARTAN POTASSIUM 25 MG TABLET GT SCH (09:34)
[2022-07-20] MEDS: VITAMINS A AND D OINT 42 GM TUBE TP SCH ×2 (09:34→21:00)
[2022-07-20] MEDS: diphenhydrAMINE 25 MG/10 ML UDC GT PRN (14:47)
[2022-07-20] MEDS: MULTIVIT, IRON, MIN NO. 8, FA TABLET GT SCH (21:00)
[2022-07-20] MEDS: NUTRISOURCE FIBER 4 GM PACKET GT SCH (21:00)
[2022-07-20] MEDS: ATORVASTATIN 20 MG TABLET GT SCH (21:00)
[2022-07-21] VITALS (10 sets, daily range): TEMP 98–98.3; O2SAT 97–99
[2022-07-21] MEDS: ALBUTEROL SULFATE 2.5 MG/3 ML NEBU NEB SCH ×4 (00:57→19:54)
[2022-07-21] MEDS: BACLOFEN 20 MG TABLET GT SCH ×3 (05:33→21:27)
[2022-07-21] MEDS: OMEPRAZOLE 20 MG CAPSULE.DR GT SCH ×2 (05:33→17:11)
[2022-07-21] MEDS: HYDROGEN PEROXIDE 3% 118 ML BOTTLE TP SCH ×2 (07:32→19:54)
[2022-07-21] MEDS: ASPIRIN 81 MG TAB.CHEW GT SCH (08:26)
[2022-07-21] MEDS: LOSARTAN POTASSIUM 25 MG TABLET GT SCH (08:26)
[2022-07-21] MEDS: ACIDOPHILUS/BULGARICUS CHEW TAB GT SCH ×2 (08:27→20:54)
[2022-07-21] MEDS: SODIUM CHLORIDE 1,000 MG TABLET GT SCH ×3 (08:28→17:11)
[2022-07-21] MEDS: NEOMY/BACITRAC/POLYMI OINT 28.35 GM TUBE TOP SCH ×2 (08:28→20:55)
[2022-07-21] MEDS: METOPROLOL TARTRATE 25 MG TABLET GT SCH ×2 (08:28→20:55)
[2022-07-21] MEDS: CLOPIDOGREL 75 MG TABLET GT SCH (08:28)
[2022-07-21] MEDS: REMEDY ESSENTIAL ZINC PASTE 113 GM TP SCH ×2 (08:29→20:55)
[2022-07-21] MEDS: VITAMINS A AND D OINT 42 GM TUBE TP SCH ×2 (08:29→20:55)
[2022-07-21] MEDS: ATORVASTATIN 20 MG TABLET GT SCH (20:55)
[2022-07-21] MEDS: NUTRISOURCE FIBER 4 GM PACKET GT SCH (20:55)
[2022-07-21] MEDS: VITAL AF 1.2 1,000 ML LIQUID GT PRN (22:00)
[2022-07-22] VITALS (10 sets, daily range): TEMP 97.3–97.9; O2SAT 98–99
[2022-07-22] MEDS: ALBUTEROL SULFATE 2.5 MG/3 ML NEBU NEB SCH ×4 (01:57→19:24)
[2022-07-22] MEDS: OMEPRAZOLE 20 MG CAPSULE.DR GT SCH ×2 (05:14→17:04)
[2022-07-22] MEDS: BACLOFEN 20 MG TABLET GT SCH ×3 (05:14→21:10)
[2022-07-22] MEDS: HYDROGEN PEROXIDE 3% 118 ML BOTTLE TP SCH ×2 (07:36→20:52)
[2022-07-22] MEDS: ACIDOPHILUS/BULGARICUS CHEW TAB GT SCH ×2 (09:07→21:07)
[2022-07-22] MEDS: REMEDY ESSENTIAL ZINC PASTE 113 GM TP SCH ×2 (09:07→21:08)
[2022-07-22] MEDS: NEOMY/BACITRAC/POLYMI OINT 28.35 GM TUBE TOP SCH ×2 (09:07→21:08)
[2022-07-22] MEDS: ASPIRIN 81 MG TAB.CHEW GT SCH (09:07)
[2022-07-22] MEDS: VITAMINS A AND D OINT 42 GM TUBE TP SCH ×2 (09:08→21:08)
[2022-07-22] MEDS: LOSARTAN POTASSIUM 25 MG TABLET GT SCH (09:12)
[2022-07-22] MEDS: SODIUM CHLORIDE 1,000 MG TABLET GT SCH ×3 (09:13→17:03)
[2022-07-22] MEDS: METOPROLOL TARTRATE 25 MG TABLET GT SCH ×2 (09:13→21:10)
[2022-07-22] MEDS: CLOPIDOGREL 75 MG TABLET GT SCH (09:15)
[2022-07-22] MEDS: NUTRISOURCE FIBER 4 GM PACKET GT SCH (21:07)
[2022-07-22] MEDS: MULTIVIT, IRON, MIN NO. 8, FA TABLET GT SCH (21:07)
[2022-07-22] MEDS: ATORVASTATIN 20 MG TABLET GT SCH (21:10)
[2022-07-23] VITALS (10 sets, daily range): TEMP 97.5–98.4; O2SAT 98–99
[2022-07-23] MEDS: ALBUTEROL SULFATE 2.5 MG/3 ML NEBU NEB SCH ×4 (00:52→19:41)
[2022-07-23] MEDS: BACLOFEN 20 MG TABLET GT SCH ×3 (05:39→21:22)
[2022-07-23] MEDS: OMEPRAZOLE 20 MG CAPSULE.DR GT SCH ×2 (05:40→17:24)
[2022-07-23] MEDS: VITAL AF 1.2 1,000 ML LIQUID GT PRN (05:40)
[2022-07-23] MEDS: LOSARTAN POTASSIUM 25 MG TABLET GT SCH (09:26)
[2022-07-23] MEDS: ACIDOPHILUS/BULGARICUS CHEW TAB GT SCH ×2 (09:26→21:21)
[2022-07-23] MEDS: CLOPIDOGREL 75 MG TABLET GT SCH (09:26)
[2022-07-23] MEDS: NEOMY/BACITRAC/POLYMI OINT 28.35 GM TUBE TOP SCH ×2 (09:26→21:22)
[2022-07-23] MEDS: SODIUM CHLORIDE 1,000 MG TABLET GT SCH ×3 (09:26→17:24)
[2022-07-23] MEDS: REMEDY ESSENTIAL ZINC PASTE 113 GM TP SCH ×2 (09:26→21:22)
[2022-07-23] MEDS: METOPROLOL TARTRATE 25 MG TABLET GT SCH ×2 (09:26→21:00)
[2022-07-23] MEDS: ASPIRIN 81 MG TAB.CHEW GT SCH (09:26)
[2022-07-23] MEDS: VITAMINS A AND D OINT 42 GM TUBE TP SCH ×2 (09:27→21:22)
[2022-07-23] MEDS: diphenhydrAMINE 25 MG/10 ML UDC GT PRN (09:32)
[2022-07-23] MEDS: HYDROGEN PEROXIDE 3% 118 ML BOTTLE TP SCH ×2 (09:40→19:41)
[2022-07-23] MEDS: ATORVASTATIN 20 MG TABLET GT SCH (21:21)
[2022-07-23] MEDS: NUTRISOURCE FIBER 4 GM PACKET GT SCH (21:22)
[2022-07-24] VITALS (9 sets, daily range): TEMP 97–97.9; O2SAT 98–99
[2022-07-24] MEDS: ALBUTEROL SULFATE 2.5 MG/3 ML NEBU NEB SCH ×4 (00:40→19:40)
[2022-07-24] MEDS: VITAL AF 1.2 1,000 ML LIQUID GT PRN ×2 (00:55→22:30)
[2022-07-24] MEDS: BACLOFEN 20 MG TABLET GT SCH ×3 (06:00→21:46)
[2022-07-24] MEDS: OMEPRAZOLE 20 MG CAPSULE.DR GT SCH ×2 (06:00→17:10)
[2022-07-24] MEDS: HYDROGEN PEROXIDE 3% 118 ML BOTTLE TP SCH ×2 (09:00→19:40)
[2022-07-24] MEDS: METOPROLOL TARTRATE 25 MG TABLET GT SCH ×2 (09:10→21:46)
[2022-07-24] MEDS: ASPIRIN 81 MG TAB.CHEW GT SCH (09:11)
[2022-07-24] MEDS: VITAMINS A AND D OINT 42 GM TUBE TP SCH ×2 (09:12→21:46)
[2022-07-24] MEDS: REMEDY ESSENTIAL ZINC PASTE 113 GM TP SCH ×2 (09:12→21:45)
[2022-07-24] MEDS: NEOMY/BACITRAC/POLYMI OINT 28.35 GM TUBE TOP SCH ×2 (09:12→21:45)
[2022-07-24] MEDS: SODIUM CHLORIDE 1,000 MG TABLET GT SCH ×3 (09:12→17:10)
[2022-07-24] MEDS: ACIDOPHILUS/BULGARICUS CHEW TAB GT SCH ×2 (09:12→21:45)
[2022-07-24] MEDS: CLOPIDOGREL 75 MG TABLET GT SCH (09:12)
[2022-07-24] MEDS: LOSARTAN POTASSIUM 25 MG TABLET GT SCH (09:12)
[2022-07-24] MEDS: diphenhydrAMINE 25 MG/10 ML UDC GT PRN (11:26)
[2022-07-24] MEDS: ATORVASTATIN 20 MG TABLET GT SCH (21:45)
[2022-07-24] MEDS: NUTRISOURCE FIBER 4 GM PACKET GT SCH (21:46)
[2022-07-24] MEDS: MULTIVIT, IRON, MIN NO. 8, FA TABLET GT SCH (21:46)
[2022-07-25] VITALS (9 sets, daily range): TEMP 97.5; O2SAT 98–99
[2022-07-25] MEDS: ALBUTEROL SULFATE 2.5 MG/3 ML NEBU NEB SCH ×4 (00:41→19:40)
[2022-07-25] MEDS: BACLOFEN 20 MG TABLET GT SCH ×3 (06:13→22:03)
[2022-07-25] MEDS: OMEPRAZOLE 20 MG CAPSULE.DR GT SCH ×2 (06:13→17:18)
[2022-07-25] MEDS: HYDROGEN PEROXIDE 3% 118 ML BOTTLE TP SCH ×2 (09:36→19:41)
[2022-07-25] MEDS: LOSARTAN POTASSIUM 25 MG TABLET GT SCH (09:41)
[2022-07-25] MEDS: ACIDOPHILUS/BULGARICUS CHEW TAB GT SCH ×2 (09:41→21:55)
[2022-07-25] MEDS: SODIUM CHLORIDE 1,000 MG TABLET GT SCH ×3 (09:41→17:18)
[2022-07-25] MEDS: ASPIRIN 81 MG TAB.CHEW GT SCH (09:41)
[2022-07-25] MEDS: REMEDY ESSENTIAL ZINC PASTE 113 GM TP SCH ×2 (09:42→21:56)
[2022-07-25] MEDS: VITAMINS A AND D OINT 42 GM TUBE TP SCH ×2 (09:42→21:56)
[2022-07-25] MEDS: CLOPIDOGREL 75 MG TABLET GT SCH (09:42)
[2022-07-25] MEDS: NEOMY/BACITRAC/POLYMI OINT 28.35 GM TUBE TOP SCH ×2 (09:42→21:56)
[2022-07-25] MEDS: METOPROLOL TARTRATE 25 MG TABLET GT SCH ×2 (09:44→21:56)
[2022-07-25] MEDS: diphenhydrAMINE 25 MG/10 ML UDC GT PRN (10:28)
[2022-07-25] MEDS: ATORVASTATIN 20 MG TABLET GT SCH (21:55)
[2022-07-25] MEDS: NUTRISOURCE FIBER 4 GM PACKET GT SCH (21:56)
[2022-07-26] VITALS (10 sets, daily range): TEMP 97.8–98.6; O2SAT 97–99
[2022-07-26] MEDS: ALBUTEROL SULFATE 2.5 MG/3 ML NEBU NEB SCH ×4 (00:40→19:06)
[2022-07-26] MEDS: BACLOFEN 20 MG TABLET GT SCH ×3 (06:00→22:07)
[2022-07-26] MEDS: OMEPRAZOLE 20 MG CAPSULE.DR GT SCH ×2 (06:00→17:43)
[2022-07-26] MEDS: HYDROGEN PEROXIDE 3% 118 ML BOTTLE TP SCH ×2 (08:11→20:59)
[2022-07-26] MEDS: ASPIRIN 81 MG TAB.CHEW GT SCH (08:22)
[2022-07-26] MEDS: METOPROLOL TARTRATE 25 MG TABLET GT SCH ×2 (08:22→20:27)
[2022-07-26] MEDS: LOSARTAN POTASSIUM 25 MG TABLET GT SCH (08:22)
[2022-07-26] MEDS: ACIDOPHILUS/BULGARICUS CHEW TAB GT SCH ×2 (08:22→20:27)
[2022-07-26] MEDS: SODIUM CHLORIDE 1,000 MG TABLET GT SCH ×3 (08:25→17:43)
[2022-07-26] MEDS: REMEDY ESSENTIAL ZINC PASTE 113 GM TP SCH ×2 (08:25→20:28)
[2022-07-26] MEDS: NEOMY/BACITRAC/POLYMI OINT 28.35 GM TUBE TOP SCH ×2 (08:25→20:28)
[2022-07-26] MEDS: CLOPIDOGREL 75 MG TABLET GT SCH (08:25)
[2022-07-26] MEDS: VITAMINS A AND D OINT 42 GM TUBE TP SCH ×2 (08:26→20:28)
[2022-07-26] MEDS: diphenhydrAMINE 25 MG/10 ML UDC GT PRN (08:27)
[2022-07-26] MEDS: ATORVASTATIN 20 MG TABLET GT SCH (20:27)
[2022-07-26] MEDS: NUTRISOURCE FIBER 4 GM PACKET GT SCH (20:27)
[2022-07-26] MEDS: MULTIVIT, IRON, MIN NO. 8, FA TABLET GT SCH (20:28)
[2022-07-27] VITALS (11 sets, daily range): BP systolic 148; BP diastolic 63; TEMP 98–98.4; O2SAT 97–99
[2022-07-27] MEDS: ALBUTEROL SULFATE 2.5 MG/3 ML NEBU NEB SCH ×4 (01:31→19:14)
[2022-07-27] MEDS: VITAL AF 1.2 1,000 ML LIQUID GT PRN ×2 (02:02→21:34)
[2022-07-27] MEDS: BACLOFEN 20 MG TABLET GT SCH ×3 (05:24→21:12)
[2022-07-27] MEDS: OMEPRAZOLE 20 MG CAPSULE.DR GT SCH ×2 (05:24→17:03)
[2022-07-27] MEDS: HYDROGEN PEROXIDE 3% 118 ML BOTTLE TP SCH ×2 (08:17→19:23)
[2022-07-27] MEDS: ACIDOPHILUS/BULGARICUS CHEW TAB GT SCH ×2 (09:36→21:11)
[2022-07-27] MEDS: NEOMY/BACITRAC/POLYMI OINT 28.35 GM TUBE TOP SCH ×2 (09:36→21:12)
[2022-07-27] MEDS: SODIUM CHLORIDE 1,000 MG TABLET GT SCH ×3 (09:36→16:57)
[2022-07-27] MEDS: LOSARTAN POTASSIUM 25 MG TABLET GT SCH (09:36)
[2022-07-27] MEDS: ASPIRIN 81 MG TAB.CHEW GT SCH (09:36)
[2022-07-27] MEDS: CLOPIDOGREL 75 MG TABLET GT SCH (09:36)
[2022-07-27] MEDS: METOPROLOL TARTRATE 25 MG TABLET GT SCH ×2 (09:36→21:11)
[2022-07-27] MEDS: VITAMINS A AND D OINT 42 GM TUBE TP SCH ×2 (09:37→21:12)
[2022-07-27] MEDS: REMEDY ESSENTIAL ZINC PASTE 113 GM TP SCH ×2 (09:37→21:12)
[2022-07-27] MEDS: ACETAMINOPHEN 650 MG/20 ML UDC- SA PATIENTS-PAIN ONLY GT PRN (09:38)
[2022-07-27] MEDS: diphenhydrAMINE 25 MG/10 ML UDC GT PRN (14:43)
[2022-07-27] MEDS: NUTRISOURCE FIBER 4 GM PACKET GT SCH (21:11)
[2022-07-27] MEDS: ATORVASTATIN 20 MG TABLET GT SCH (21:11)
[2022-07-28] VITALS (10 sets, daily range): TEMP 97.6–97.8; O2SAT 97–99
[2022-07-28] MEDS: ALBUTEROL SULFATE 2.5 MG/3 ML NEBU NEB SCH ×4 (00:59→19:40)
[2022-07-28] MEDS: OMEPRAZOLE 20 MG CAPSULE.DR GT SCH ×2 (05:20→18:46)
[2022-07-28] MEDS: BACLOFEN 20 MG TABLET GT SCH ×3 (05:20→22:00)
[2022-07-28] MEDS: HYDROGEN PEROXIDE 3% 118 ML BOTTLE TP SCH ×2 (08:16→19:40)
[2022-07-28] MEDS: ACIDOPHILUS/BULGARICUS CHEW TAB GT SCH ×2 (09:15→20:19)
[2022-07-28] MEDS: ASPIRIN 81 MG TAB.CHEW GT SCH (09:15)
[2022-07-28] MEDS: METOPROLOL TARTRATE 25 MG TABLET GT SCH ×2 (09:17→20:20)
[2022-07-28] MEDS: LOSARTAN POTASSIUM 25 MG TABLET GT SCH (09:17)
[2022-07-28] MEDS: VITAMINS A AND D OINT 42 GM TUBE TP SCH ×2 (09:18→20:20)
[2022-07-28] MEDS: SODIUM CHLORIDE 1,000 MG TABLET GT SCH ×3 (09:18→18:46)
[2022-07-28] MEDS: CLOPIDOGREL 75 MG TABLET GT SCH (09:18)
[2022-07-28] MEDS: NEOMY/BACITRAC/POLYMI OINT 28.35 GM TUBE TOP SCH ×2 (09:18→20:20)
[2022-07-28] MEDS: REMEDY ESSENTIAL ZINC PASTE 113 GM TP SCH ×2 (09:18→20:20)
[2022-07-28] MEDS: ATORVASTATIN 20 MG TABLET GT SCH (20:19)
[2022-07-28] MEDS: MULTIVIT, IRON, MIN NO. 8, FA TABLET GT SCH (20:20)
[2022-07-28] MEDS: NUTRISOURCE FIBER 4 GM PACKET GT SCH (20:20)
[2022-07-29] VITALS (10 sets, daily range): TEMP 97.5–97.6; O2SAT 98–99
[2022-07-29] MEDS: ALBUTEROL SULFATE 2.5 MG/3 ML NEBU NEB SCH ×4 (00:40→19:45)
[2022-07-29] MEDS: VITAL AF 1.2 1,000 ML LIQUID GT PRN (01:00)
[2022-07-29] MEDS: BACLOFEN 20 MG TABLET GT SCH ×3 (06:09→21:20)
[2022-07-29] MEDS: OMEPRAZOLE 20 MG CAPSULE.DR GT SCH ×2 (06:09→17:02)
[2022-07-29] MEDS: HYDROGEN PEROXIDE 3% 118 ML BOTTLE TP SCH ×2 (07:35→19:45)
[2022-07-29] MEDS: METOPROLOL TARTRATE 25 MG TABLET GT SCH ×2 (09:00→21:20)
[2022-07-29] MEDS: ACIDOPHILUS/BULGARICUS CHEW TAB GT SCH ×2 (09:07→21:20)
[2022-07-29] MEDS: ASPIRIN 81 MG TAB.CHEW GT SCH (09:07)
[2022-07-29] MEDS: LOSARTAN POTASSIUM 25 MG TABLET GT SCH (09:07)
[2022-07-29] MEDS: SODIUM CHLORIDE 1,000 MG TABLET GT SCH ×3 (09:09→17:02)
[2022-07-29] MEDS: CLOPIDOGREL 75 MG TABLET GT SCH (09:09)
[2022-07-29] MEDS: VITAMINS A AND D OINT 42 GM TUBE TP SCH ×2 (09:10→21:20)
[2022-07-29] MEDS: REMEDY ESSENTIAL ZINC PASTE 113 GM TP SCH ×2 (09:10→21:20)
[2022-07-29] MEDS: NEOMY/BACITRAC/POLYMI OINT 28.35 GM TUBE TOP SCH ×2 (09:10→21:20)
[2022-07-29] MEDS: ACETAMINOPHEN 650 MG/20 ML UDC- SA PATIENTS-PAIN ONLY GT PRN (17:03)
[2022-07-29] MEDS: NUTRISOURCE FIBER 4 GM PACKET GT SCH (21:20)
[2022-07-29] MEDS: ATORVASTATIN 20 MG TABLET GT SCH (21:20)
[2022-07-30] VITALS (10 sets, daily range): TEMP 97.4–98; O2SAT 97–99
[2022-07-30] MEDS: ALBUTEROL SULFATE 2.5 MG/3 ML NEBU NEB SCH ×4 (00:42→20:10)
[2022-07-30] MEDS: VITAL AF 1.2 1,000 ML LIQUID GT PRN (01:51)
[2022-07-30] MEDS: OMEPRAZOLE 20 MG CAPSULE.DR GT SCH ×2 (05:04→17:00)
[2022-07-30] MEDS: BACLOFEN 20 MG TABLET GT SCH ×3 (05:04→21:35)
[2022-07-30] MEDS: METOPROLOL TARTRATE 25 MG TABLET GT SCH ×2 (09:00→21:34)
[2022-07-30] MEDS: HYDROGEN PEROXIDE 3% 118 ML BOTTLE TP SCH ×2 (09:09→20:10)
[2022-07-30] MEDS: ACIDOPHILUS/BULGARICUS CHEW TAB GT SCH ×2 (09:15→21:29)
[2022-07-30] MEDS: LOSARTAN POTASSIUM 25 MG TABLET GT SCH (09:15)
[2022-07-30] MEDS: ASPIRIN 81 MG TAB.CHEW GT SCH (09:15)
[2022-07-30] MEDS: SODIUM CHLORIDE 1,000 MG TABLET GT SCH ×3 (09:16→17:00)
[2022-07-30] MEDS: CLOPIDOGREL 75 MG TABLET GT SCH (09:16)
[2022-07-30] MEDS: REMEDY ESSENTIAL ZINC PASTE 113 GM TP SCH ×2 (09:16→21:29)
[2022-07-30] MEDS: VITAMINS A AND D OINT 42 GM TUBE TP SCH ×2 (09:16→21:29)
[2022-07-30] MEDS: NEOMY/BACITRAC/POLYMI OINT 28.35 GM TUBE TOP SCH ×2 (09:16→21:29)
[2022-07-30] MEDS: NUTRISOURCE FIBER 4 GM PACKET GT SCH (21:29)
[2022-07-30] MEDS: MULTIVIT, IRON, MIN NO. 8, FA TABLET GT SCH (21:30)
[2022-07-30] MEDS: ATORVASTATIN 20 MG TABLET GT SCH (21:34)
[2022-07-31] VITALS (10 sets, daily range): TEMP 97.4–98.1; O2SAT 97–99
[2022-07-31] MEDS: ALBUTEROL SULFATE 2.5 MG/3 ML NEBU NEB SCH ×4 (01:30→19:30)
[2022-07-31] MEDS: OMEPRAZOLE 20 MG CAPSULE.DR GT SCH ×2 (06:14→17:17)
[2022-07-31] MEDS: BACLOFEN 20 MG TABLET GT SCH ×3 (06:14→21:44)
[2022-07-31] MEDS: HYDROGEN PEROXIDE 3% 118 ML BOTTLE TP SCH ×2 (08:19→20:48)
[2022-07-31] MEDS: LOSARTAN POTASSIUM 25 MG TABLET GT SCH (08:43)
[2022-07-31] MEDS: ASPIRIN 81 MG TAB.CHEW GT SCH (08:43)
[2022-07-31] MEDS: ACIDOPHILUS/BULGARICUS CHEW TAB GT SCH ×2 (08:43→21:38)
[2022-07-31] MEDS: CLOPIDOGREL 75 MG TABLET GT SCH (08:44)
[2022-07-31] MEDS: VITAMINS A AND D OINT 42 GM TUBE TP SCH ×2 (08:44→21:38)
[2022-07-31] MEDS: NEOMY/BACITRAC/POLYMI OINT 28.35 GM TUBE TOP SCH (08:44)
[2022-07-31] MEDS: METOPROLOL TARTRATE 25 MG TABLET GT SCH ×2 (08:44→21:00)
[2022-07-31] MEDS: SODIUM CHLORIDE 1,000 MG TABLET GT SCH ×3 (08:44→17:17)
[2022-07-31] MEDS: REMEDY ESSENTIAL ZINC PASTE 113 GM TP SCH ×2 (08:44→21:38)
[2022-07-31] MEDS: diphenhydrAMINE 25 MG/10 ML UDC GT PRN ×2 (08:46→17:17)
[2022-07-31] MEDS: NUTRISOURCE FIBER 4 GM PACKET GT SCH (21:38)
[2022-07-31] MEDS: ATORVASTATIN 20 MG TABLET GT SCH (21:43)
[2022-07-31] MEDS: VITAL AF 1.2 1,000 ML LIQUID GT PRN (21:45)
[2022-08-01] VITALS (11 sets, daily range): TEMP 97.6–98; O2SAT 97–99
[2022-08-01] MEDS: ALBUTEROL SULFATE 2.5 MG/3 ML NEBU NEB SCH ×4 (01:57→19:17)
[2022-08-01] MEDS: diphenhydrAMINE 25 MG/10 ML UDC GT PRN (03:33)
[2022-08-01] MEDS: BACLOFEN 20 MG TABLET GT SCH ×3 (06:14→22:00)
[2022-08-01] MEDS: OMEPRAZOLE 20 MG CAPSULE.DR GT SCH ×2 (06:15→17:16)
[2022-08-01] MEDS: HYDROGEN PEROXIDE 3% 118 ML BOTTLE TP SCH ×2 (08:25→19:17)
[2022-08-01] MEDS: SODIUM CHLORIDE 1,000 MG TABLET GT SCH ×3 (09:03→17:16)
[2022-08-01] MEDS: ACIDOPHILUS/BULGARICUS CHEW TAB GT SCH ×2 (09:03→21:00)
[2022-08-01] MEDS: METOPROLOL TARTRATE 25 MG TABLET GT SCH ×2 (09:03→21:00)
[2022-08-01] MEDS: CLOPIDOGREL 75 MG TABLET GT SCH (09:03)
[2022-08-01] MEDS: REMEDY ESSENTIAL ZINC PASTE 113 GM TP SCH ×2 (09:03→21:00)
[2022-08-01] MEDS: LOSARTAN POTASSIUM 25 MG TABLET GT SCH (09:03)
[2022-08-01] MEDS: ASPIRIN 81 MG TAB.CHEW GT SCH (09:03)
[2022-08-01] MEDS: VITAMINS A AND D OINT 42 GM TUBE TP SCH ×2 (09:03→21:00)
[2022-08-01] MEDS: VITAL AF 1.2 1,000 ML LIQUID GT PRN (18:08)
[2022-08-01] MEDS: NUTRISOURCE FIBER 4 GM PACKET GT SCH (21:00)
[2022-08-01] MEDS: MULTIVIT, IRON, MIN NO. 8, FA TABLET GT SCH (21:00)
[2022-08-01] MEDS: ATORVASTATIN 20 MG TABLET GT SCH (21:00)
[2022-08-02] VITALS (9 sets, daily range): TEMP 98.2; O2SAT 97–99
[2022-08-02] MEDS: ALBUTEROL SULFATE 2.5 MG/3 ML NEBU NEB SCH ×4 (00:50→20:21)
[2022-08-02] MEDS: OMEPRAZOLE 20 MG CAPSULE.DR GT SCH ×2 (05:06→17:41)
[2022-08-02] MEDS: BACLOFEN 20 MG TABLET GT SCH ×3 (05:06→22:00)
[2022-08-02] MEDS: HYDROGEN PEROXIDE 3% 118 ML BOTTLE TP SCH ×2 (07:53→20:21)
[2022-08-02] MEDS: ACIDOPHILUS/BULGARICUS CHEW TAB GT SCH ×2 (08:51→20:31)
[2022-08-02] MEDS: CLOPIDOGREL 75 MG TABLET GT SCH (08:51)
[2022-08-02] MEDS: ASPIRIN 81 MG TAB.CHEW GT SCH (08:51)
[2022-08-02] MEDS: REMEDY ESSENTIAL ZINC PASTE 113 GM TP SCH ×2 (08:51→20:36)
[2022-08-02] MEDS: METOPROLOL TARTRATE 25 MG TABLET GT SCH ×2 (08:51→20:35)
[2022-08-02] MEDS: SODIUM CHLORIDE 1,000 MG TABLET GT SCH ×3 (08:51→17:41)
[2022-08-02] MEDS: VITAMINS A AND D OINT 42 GM TUBE TP SCH ×2 (08:52→20:36)
[2022-08-02] MEDS: LOSARTAN POTASSIUM 25 MG TABLET GT SCH (09:36)
[2022-08-02] MEDS: ATORVASTATIN 20 MG TABLET GT SCH (20:31)
[2022-08-02] MEDS: NUTRISOURCE FIBER 4 GM PACKET GT SCH (20:36)
[2022-08-03] VITALS (10 sets, daily range): TEMP 97.8–98.5; O2SAT 97–99
[2022-08-03] MEDS: ALBUTEROL SULFATE 2.5 MG/3 ML NEBU NEB SCH ×4 (02:05→19:38)
[2022-08-03] MEDS: OMEPRAZOLE 20 MG CAPSULE.DR GT SCH ×2 (05:57→17:36)
[2022-08-03] MEDS: BACLOFEN 20 MG TABLET GT SCH ×3 (06:02→21:44)
[2022-08-03] MEDS: HYDROGEN PEROXIDE 3% 118 ML BOTTLE TP SCH ×2 (07:40→19:38)
[2022-08-03] MEDS: ASPIRIN 81 MG TAB.CHEW GT SCH (09:09)
[2022-08-03] MEDS: REMEDY ESSENTIAL ZINC PASTE 113 GM TP SCH ×2 (09:09→21:44)
[2022-08-03] MEDS: CLOPIDOGREL 75 MG TABLET GT SCH (09:09)
[2022-08-03] MEDS: METOPROLOL TARTRATE 25 MG TABLET GT SCH ×2 (09:09→21:43)
[2022-08-03] MEDS: LOSARTAN POTASSIUM 25 MG TABLET GT SCH (09:09)
[2022-08-03] MEDS: ACIDOPHILUS/BULGARICUS CHEW TAB GT SCH ×2 (09:09→21:41)
[2022-08-03] MEDS: VITAMINS A AND D OINT 42 GM TUBE TP SCH ×2 (09:09→21:44)
[2022-08-03] MEDS: SODIUM CHLORIDE 1,000 MG TABLET GT SCH ×3 (09:09→17:36)
[2022-08-03] MEDS: ATORVASTATIN 20 MG TABLET GT SCH (21:42)
[2022-08-03] MEDS: NUTRISOURCE FIBER 4 GM PACKET GT SCH (21:43)
[2022-08-03] MEDS: MULTIVIT, IRON, MIN NO. 8, FA TABLET GT SCH (21:43)
[2022-08-04] VITALS (10 sets, daily range): TEMP 97.6–98.4; O2SAT 98
[2022-08-04] MEDS: ALBUTEROL SULFATE 2.5 MG/3 ML NEBU NEB SCH ×4 (00:40→19:11)
[2022-08-04] MEDS: BACLOFEN 20 MG TABLET GT SCH ×3 (05:57→21:43)
[2022-08-04] MEDS: OMEPRAZOLE 20 MG CAPSULE.DR GT SCH ×2 (05:57→17:06)
[2022-08-04] MEDS: HYDROGEN PEROXIDE 3% 118 ML BOTTLE TP SCH ×2 (07:32→19:11)
[2022-08-04] MEDS: ACIDOPHILUS/BULGARICUS CHEW TAB GT SCH ×2 (08:30→20:54)
[2022-08-04] MEDS: ASPIRIN 81 MG TAB.CHEW GT SCH (08:30)
[2022-08-04] MEDS: LOSARTAN POTASSIUM 25 MG TABLET GT SCH (08:30)
[2022-08-04] MEDS: SODIUM CHLORIDE 1,000 MG TABLET GT SCH ×3 (08:31→17:06)
[2022-08-04] MEDS: CLOPIDOGREL 75 MG TABLET GT SCH (08:31)
[2022-08-04] MEDS: METOPROLOL TARTRATE 25 MG TABLET GT SCH ×2 (08:31→20:54)
[2022-08-04] MEDS: VITAMINS A AND D OINT 42 GM TUBE TP SCH ×2 (08:32→20:55)
[2022-08-04] MEDS: REMEDY ESSENTIAL ZINC PASTE 113 GM TP SCH ×2 (08:32→20:55)
[2022-08-04] MEDS: ACETAMINOPHEN 650 MG/20 ML UDC- SA PATIENTS-PAIN ONLY GT PRN (13:48)
[2022-08-04] MEDS: VITAL AF 1.2 1,000 ML LIQUID GT PRN (15:11)
[2022-08-04] MEDS: ATORVASTATIN 20 MG TABLET GT SCH (20:54)
[2022-08-04] MEDS: NUTRISOURCE FIBER 4 GM PACKET GT SCH (20:55)
[2022-08-05] VITALS (10 sets, daily range): TEMP 98–98.1; O2SAT 97–99
[2022-08-05] MEDS: ALBUTEROL SULFATE 2.5 MG/3 ML NEBU NEB SCH ×4 (01:24→19:50)
[2022-08-05] MEDS: OMEPRAZOLE 20 MG CAPSULE.DR GT SCH ×2 (05:21→17:24)
[2022-08-05] MEDS: BACLOFEN 20 MG TABLET GT SCH ×3 (05:21→21:19)
[2022-08-05] MEDS: HYDROGEN PEROXIDE 3% 118 ML BOTTLE TP SCH ×2 (07:55→20:37)
[2022-08-05] MEDS: LOSARTAN POTASSIUM 25 MG TABLET GT SCH (08:53)
[2022-08-05] MEDS: ASPIRIN 81 MG TAB.CHEW GT SCH (08:53)
[2022-08-05] MEDS: METOPROLOL TARTRATE 25 MG TABLET GT SCH ×2 (08:54→21:19)
[2022-08-05] MEDS: ACIDOPHILUS/BULGARICUS CHEW TAB GT SCH ×2 (08:54→21:18)
[2022-08-05] MEDS: CLOPIDOGREL 75 MG TABLET GT SCH (08:54)
[2022-08-05] MEDS: SODIUM CHLORIDE 1,000 MG TABLET GT SCH ×3 (08:54→16:41)
[2022-08-05] MEDS: REMEDY ESSENTIAL ZINC PASTE 113 GM TP SCH ×2 (08:55→21:19)
[2022-08-05] MEDS: VITAMINS A AND D OINT 42 GM TUBE TP SCH ×2 (08:55→21:19)
[2022-08-05] MEDS: VITAL AF 1.2 1,000 ML LIQUID GT PRN (17:25)
[2022-08-05] MEDS: ATORVASTATIN 20 MG TABLET GT SCH (21:18)
[2022-08-05] MEDS: MULTIVIT, IRON, MIN NO. 8, FA TABLET GT SCH (21:19)
[2022-08-05] MEDS: NUTRISOURCE FIBER 4 GM PACKET GT SCH (21:19)
[2022-08-06] VITALS (10 sets, daily range): TEMP 98.1–98.2; O2SAT 96–99
[2022-08-06] MEDS: ALBUTEROL SULFATE 2.5 MG/3 ML NEBU NEB SCH ×4 (01:26→19:20)
[2022-08-06] MEDS: OMEPRAZOLE 20 MG CAPSULE.DR GT SCH ×2 (05:10→17:00)
[2022-08-06] MEDS: BACLOFEN 20 MG TABLET GT SCH ×3 (05:10→22:16)
[2022-08-06] MEDS: ASPIRIN 81 MG TAB.CHEW GT SCH (08:47)
[2022-08-06] MEDS: ACIDOPHILUS/BULGARICUS CHEW TAB GT SCH ×2 (08:48→21:00)
[2022-08-06] MEDS: LOSARTAN POTASSIUM 25 MG TABLET GT SCH (08:48)
[2022-08-06] MEDS: SODIUM CHLORIDE 1,000 MG TABLET GT SCH ×3 (08:49→17:00)
[2022-08-06] MEDS: METOPROLOL TARTRATE 25 MG TABLET GT SCH ×2 (08:49→21:00)
[2022-08-06] MEDS: CLOPIDOGREL 75 MG TABLET GT SCH (08:49)
[2022-08-06] MEDS: VITAMINS A AND D OINT 42 GM TUBE TP SCH ×2 (09:12→21:00)
[2022-08-06] MEDS: REMEDY ESSENTIAL ZINC PASTE 113 GM TP SCH ×2 (09:12→21:00)
[2022-08-06] MEDS: HYDROGEN PEROXIDE 3% 118 ML BOTTLE TP SCH ×2 (09:20→21:12)
[2022-08-06] MEDS: ATORVASTATIN 20 MG TABLET GT SCH (21:00)
[2022-08-06] MEDS: NUTRISOURCE FIBER 4 GM PACKET GT SCH (21:00)
[2022-08-07] VITALS (10 sets, daily range): TEMP 98.1–98.6; O2SAT 97–99
[2022-08-07] MEDS: ALBUTEROL SULFATE 2.5 MG/3 ML NEBU NEB SCH ×4 (02:00→17:23)
[2022-08-07] MEDS: BACLOFEN 20 MG TABLET GT SCH ×4 (02:43→21:11)
[2022-08-07] MEDS: OMEPRAZOLE 20 MG CAPSULE.DR GT SCH ×2 (06:07→18:29)
[2022-08-07] MEDS: HYDROGEN PEROXIDE 3% 118 ML BOTTLE TP SCH ×2 (08:04→17:23)
[2022-08-07] MEDS: LOSARTAN POTASSIUM 25 MG TABLET GT SCH (08:59)
[2022-08-07] MEDS: ASPIRIN 81 MG TAB.CHEW GT SCH (08:59)
[2022-08-07] MEDS: REMEDY ESSENTIAL ZINC PASTE 113 GM TP SCH ×2 (09:00→21:11)
[2022-08-07] MEDS: METOPROLOL TARTRATE 25 MG TABLET GT SCH ×2 (09:00→21:10)
[2022-08-07] MEDS: CLOPIDOGREL 75 MG TABLET GT SCH (09:00)
[2022-08-07] MEDS: ACIDOPHILUS/BULGARICUS CHEW TAB GT SCH ×2 (09:00→21:10)
[2022-08-07] MEDS: SODIUM CHLORIDE 1,000 MG TABLET GT SCH ×3 (09:00→17:44)
[2022-08-07] MEDS: VITAMINS A AND D OINT 42 GM TUBE TP SCH ×2 (09:00→21:11)
[2022-08-07] MEDS: VITAL AF 1.2 1,000 ML LIQUID GT PRN (14:47)
[2022-08-07] MEDS: diphenhydrAMINE 25 MG/10 ML UDC GT PRN (17:46)
[2022-08-07] MEDS: NUTRISOURCE FIBER 4 GM PACKET GT SCH (21:10)
[2022-08-07] MEDS: ATORVASTATIN 20 MG TABLET GT SCH (21:10)
[2022-08-07] MEDS: MULTIVIT, IRON, MIN NO. 8, FA TABLET GT SCH (21:11)
[2022-08-08] VITALS (12 sets, daily range): BP systolic 141; BP diastolic 72; TEMP 97.7–98; O2SAT 97–100
[2022-08-08] MEDS: ALBUTEROL SULFATE 2.5 MG/3 ML NEBU NEB SCH ×4 (00:45→21:33)
[2022-08-08] MEDS: BACLOFEN 20 MG TABLET GT SCH ×3 (05:36→21:15)
[2022-08-08] MEDS: OMEPRAZOLE 20 MG CAPSULE.DR GT SCH ×2 (05:36→18:32)
[2022-08-08] MEDS: HYDROGEN PEROXIDE 3% 118 ML BOTTLE TP SCH ×2 (08:13→21:33)
[2022-08-08] MEDS: LOSARTAN POTASSIUM 25 MG TABLET GT SCH (09:00)
[2022-08-08] MEDS: METOPROLOL TARTRATE 25 MG TABLET GT SCH ×2 (09:00→20:14)
[2022-08-08] MEDS: ASPIRIN 81 MG TAB.CHEW GT SCH (09:06)
[2022-08-08] MEDS: ACIDOPHILUS/BULGARICUS CHEW TAB GT SCH ×2 (09:07→20:13)
[2022-08-08] MEDS: SODIUM CHLORIDE 1,000 MG TABLET GT SCH ×3 (09:09→17:33)
[2022-08-08] MEDS: CLOPIDOGREL 75 MG TABLET GT SCH (09:09)
[2022-08-08] MEDS: REMEDY ESSENTIAL ZINC PASTE 113 GM TP SCH ×2 (09:09→20:14)
[2022-08-08] MEDS: VITAMINS A AND D OINT 42 GM TUBE TP SCH ×2 (09:10→20:14)
[2022-08-08] MEDS: diphenhydrAMINE 25 MG/10 ML UDC GT PRN (14:08)
[2022-08-08] MEDS: VITAL AF 1.2 1,000 ML LIQUID GT PRN (16:31)
[2022-08-08] MEDS: ATORVASTATIN 20 MG TABLET GT SCH (20:14)
[2022-08-08] MEDS: NUTRISOURCE FIBER 4 GM PACKET GT SCH (20:14)
[2022-08-09] VITALS (11 sets, daily range): TEMP 97.6–97.8; O2SAT 97–99
[2022-08-09] MEDS: ALBUTEROL SULFATE 2.5 MG/3 ML NEBU NEB SCH ×4 (03:27→20:05)
[2022-08-09] MEDS: OMEPRAZOLE 20 MG CAPSULE.DR GT SCH ×2 (05:07→17:07)
[2022-08-09] MEDS: BACLOFEN 20 MG TABLET GT SCH ×3 (05:07→21:26)
[2022-08-09] MEDS: HYDROGEN PEROXIDE 3% 118 ML BOTTLE TP SCH ×2 (08:10→20:05)
[2022-08-09] MEDS: METOPROLOL TARTRATE 25 MG TABLET GT SCH ×2 (08:36→20:30)
[2022-08-09] MEDS: ASPIRIN 81 MG TAB.CHEW GT SCH (08:36)
[2022-08-09] MEDS: LOSARTAN POTASSIUM 25 MG TABLET GT SCH (08:36)
[2022-08-09] MEDS: ACIDOPHILUS/BULGARICUS CHEW TAB GT SCH ×2 (08:36→20:29)
[2022-08-09] MEDS: VITAMINS A AND D OINT 42 GM TUBE TP SCH ×2 (08:37→20:35)
[2022-08-09] MEDS: CLOPIDOGREL 75 MG TABLET GT SCH (08:37)
[2022-08-09] MEDS: SODIUM CHLORIDE 1,000 MG TABLET GT SCH ×3 (08:37→17:07)
[2022-08-09] MEDS: REMEDY ESSENTIAL ZINC PASTE 113 GM TP SCH ×2 (08:37→20:32)
[2022-08-09] MEDS: ATORVASTATIN 20 MG TABLET GT SCH (20:29)
[2022-08-09] MEDS: NUTRISOURCE FIBER 4 GM PACKET GT SCH (20:30)
[2022-08-09] MEDS: MULTIVIT, IRON, MIN NO. 8, FA TABLET GT SCH (20:32)
[2022-08-10] VITALS (10 sets, daily range): TEMP 97.8–98.6; O2SAT 97–100
[2022-08-10] MEDS: ALBUTEROL SULFATE 2.5 MG/3 ML NEBU NEB SCH ×4 (01:30→20:11)
[2022-08-10] MEDS: BACLOFEN 20 MG TABLET GT SCH ×3 (05:07→21:34)
[2022-08-10] MEDS: OMEPRAZOLE 20 MG CAPSULE.DR GT SCH ×2 (05:07→18:27)
[2022-08-10] MEDS: HYDROGEN PEROXIDE 3% 118 ML BOTTLE TP SCH ×2 (09:33→20:45)
[2022-08-10] MEDS: VITAMINS A AND D OINT 42 GM TUBE TP SCH ×2 (09:54→21:33)
[2022-08-10] MEDS: METOPROLOL TARTRATE 25 MG TABLET GT SCH ×2 (09:54→21:33)
[2022-08-10] MEDS: LOSARTAN POTASSIUM 25 MG TABLET GT SCH (09:54)
[2022-08-10] MEDS: REMEDY ESSENTIAL ZINC PASTE 113 GM TP SCH ×2 (09:54→21:33)
[2022-08-10] MEDS: CLOPIDOGREL 75 MG TABLET GT SCH (09:54)
[2022-08-10] MEDS: ASPIRIN 81 MG TAB.CHEW GT SCH (09:54)
[2022-08-10] MEDS: SODIUM CHLORIDE 1,000 MG TABLET GT SCH ×3 (09:54→17:00)
[2022-08-10] MEDS: ACIDOPHILUS/BULGARICUS CHEW TAB GT SCH ×2 (09:54→21:32)
[2022-08-10] MEDS: ATORVASTATIN 20 MG TABLET GT SCH (21:32)
[2022-08-10] MEDS: NUTRISOURCE FIBER 4 GM PACKET GT SCH (21:33)
[2022-08-11] VITALS (11 sets, daily range): TEMP 98–98.1; O2SAT 97–100
[2022-08-11] MEDS: ALBUTEROL SULFATE 2.5 MG/3 ML NEBU NEB SCH ×4 (01:31→19:24)
[2022-08-11] MEDS: OMEPRAZOLE 20 MG CAPSULE.DR GT SCH ×2 (06:18→17:23)
[2022-08-11] MEDS: BACLOFEN 20 MG TABLET GT SCH ×3 (06:18→22:02)
[2022-08-11] MEDS: HYDROGEN PEROXIDE 3% 118 ML BOTTLE TP SCH ×2 (07:29→20:59)
[2022-08-11] MEDS: ASPIRIN 81 MG TAB.CHEW GT SCH (09:34)
[2022-08-11] MEDS: ACIDOPHILUS/BULGARICUS CHEW TAB GT SCH ×2 (09:35→20:53)
[2022-08-11] MEDS: LOSARTAN POTASSIUM 25 MG TABLET GT SCH (09:35)
[2022-08-11] MEDS: VITAMINS A AND D OINT 42 GM TUBE TP SCH ×2 (09:36→20:55)
[2022-08-11] MEDS: REMEDY ESSENTIAL ZINC PASTE 113 GM TP SCH ×2 (09:36→20:54)
[2022-08-11] MEDS: CLOPIDOGREL 75 MG TABLET GT SCH (09:36)
[2022-08-11] MEDS: SODIUM CHLORIDE 1,000 MG TABLET GT SCH ×3 (09:36→17:23)
[2022-08-11] MEDS: METOPROLOL TARTRATE 25 MG TABLET GT SCH ×2 (09:36→20:53)
[2022-08-11] MEDS: MULTIVIT, IRON, MIN NO. 8, FA TABLET GT SCH (20:53)
[2022-08-11] MEDS: NUTRISOURCE FIBER 4 GM PACKET GT SCH (20:53)
[2022-08-11] MEDS: ATORVASTATIN 20 MG TABLET GT SCH (20:53)
[2022-08-12] VITALS (12 sets, daily range): TEMP 97.4–98; O2SAT 98–100
[2022-08-12] MEDS: ALBUTEROL SULFATE 2.5 MG/3 ML NEBU NEB SCH ×4 (00:35→19:21)
[2022-08-12] MEDS: BACLOFEN 20 MG TABLET GT SCH ×3 (06:04→21:11)
[2022-08-12] MEDS: OMEPRAZOLE 20 MG CAPSULE.DR GT SCH ×2 (06:05→17:11)
[2022-08-12 06:59] LABS: BASOPHILS # (AUTO) 0.1 K/UL (0.0-0.2); BASOPHILS % (AUTO) 0.8 % (0.0-2.0); EOSINOPHILS # (AUTO) 0.4 K/uL (0.0-0.7); EOSINOPHILS % (AUTO) 5.8 % (0.0-7.0); HEMATOCRIT 38.4 % (36.7-47.1); LYMPHOCYTES # (AUTO) 2.3 K/uL (0.8-4.8); LYMPHOCYTES % (AUTO) 31.1 % (20.5-51.5); MEAN CORPUSCULAR HEMOGLOBIN 31.9 uug (23.8-33.4); MEAN CORPUSCULAR HGB CONC 34 g/dL (32.5-36.3); MEAN CORPUSCULAR VOLUME 94.2 fL (73.0-96.2); MONOCYTES # (AUTO) 0.6 K/uL (0.1-1.30); MONOCYTES % (AUTO) 7.6 % (0.0-11.0); NEUTROPHILS % (AUTO) 54.7 % (38.5-71.5); PLATELET COUNT (AUTO) 242 K/uL (152-348); RED BLOOD CELL COUNT(AUTO) 4.08 MIL/uL (4.06-5.63); RED CELL DISTRIBUTION WIDTH 13.3 % (12.1-16.2); WHITE BLOOD COUNT (AUTO) 7.4 K/uL (3.6-10.2)
[2022-08-12 07:21] LABS: CALCIUM 9.3 mg/dL (8.5-10.1); CARBON DIOXIDE 25 mmol/L (21-32); CHLORIDE 102 mmol/L (98-107); CREATININE 0.6 mg/dL (0.6-1.3); GLUCOSE 108 mg/dL (74-106); PHOSPHOROUS 3.7 mg/dL (2.5-4.9); POTASSIUM 4.6 mmol/L (3.5-5.1); SODIUM SERUM 136 mmol/L (136-145); UREA NITROGEN, BLOOD 27 mg/dL (7-18)
[2022-08-12 07:59] LABS: DIFFERENTIAL COMMENT 1
[2022-08-12] MEDS: HYDROGEN PEROXIDE 3% 118 ML BOTTLE TP SCH ×2 (08:57→23:10)
[2022-08-12] MEDS: ASPIRIN 81 MG TAB.CHEW GT SCH (09:22)
[2022-08-12] MEDS: LOSARTAN POTASSIUM 25 MG TABLET GT SCH (09:22)
[2022-08-12] MEDS: ACIDOPHILUS/BULGARICUS CHEW TAB GT SCH ×2 (09:22→21:06)
[2022-08-12] MEDS: VITAMINS A AND D OINT 42 GM TUBE TP SCH ×2 (09:23→21:11)
[2022-08-12] MEDS: METOPROLOL TARTRATE 25 MG TABLET GT SCH ×2 (09:23→21:10)
[2022-08-12] MEDS: CLOPIDOGREL 75 MG TABLET GT SCH (09:23)
[2022-08-12] MEDS: REMEDY ESSENTIAL ZINC PASTE 113 GM TP SCH ×2 (09:23→21:11)
[2022-08-12] MEDS: SODIUM CHLORIDE 1,000 MG TABLET GT SCH ×3 (09:23→16:37)
[2022-08-12] MEDS: diphenhydrAMINE 25 MG/10 ML UDC GT PRN (15:23)
[2022-08-12] MEDS: ATORVASTATIN 20 MG TABLET GT SCH (21:06)
[2022-08-12] MEDS: NUTRISOURCE FIBER 4 GM PACKET GT SCH (21:10)
[2022-08-13] VITALS (10 sets, daily range): TEMP 98–98.2; O2SAT 98–99
[2022-08-13] MEDS: ALBUTEROL SULFATE 2.5 MG/3 ML NEBU NEB SCH ×4 (00:55→19:23)
[2022-08-13] MEDS: BACLOFEN 20 MG TABLET GT SCH ×3 (05:38→22:12)
[2022-08-13] MEDS: OMEPRAZOLE 20 MG CAPSULE.DR GT SCH ×2 (05:38→17:20)
[2022-08-13] MEDS: HYDROGEN PEROXIDE 3% 118 ML BOTTLE TP SCH ×2 (09:03→19:23)
[2022-08-13] MEDS: ACIDOPHILUS/BULGARICUS CHEW TAB GT SCH ×2 (09:25→20:33)
[2022-08-13] MEDS: ASPIRIN 81 MG TAB.CHEW GT SCH (09:25)
[2022-08-13] MEDS: LOSARTAN POTASSIUM 25 MG TABLET GT SCH (09:25)
[2022-08-13] MEDS: SODIUM CHLORIDE 1,000 MG TABLET GT SCH ×3 (09:26→17:20)
[2022-08-13] MEDS: REMEDY ESSENTIAL ZINC PASTE 113 GM TP SCH ×2 (09:26→20:35)
[2022-08-13] MEDS: CLOPIDOGREL 75 MG TABLET GT SCH (09:26)
[2022-08-13] MEDS: METOPROLOL TARTRATE 25 MG TABLET GT SCH ×2 (09:26→20:35)
[2022-08-13] MEDS: VITAL AF 1.2 1,000 ML LIQUID GT PRN (09:26)
[2022-08-13] MEDS: VITAMINS A AND D OINT 42 GM TUBE TP SCH ×2 (09:26→20:35)
[2022-08-13] MEDS: ATORVASTATIN 20 MG TABLET GT SCH (20:33)
[2022-08-13] MEDS: MULTIVIT, IRON, MIN NO. 8, FA TABLET GT SCH (20:35)
[2022-08-13] MEDS: NUTRISOURCE FIBER 4 GM PACKET GT SCH (20:35)
[2022-08-14] VITALS (10 sets, daily range): TEMP 97.6–97.8; O2SAT 96–99
[2022-08-14] MEDS: ALBUTEROL SULFATE 2.5 MG/3 ML NEBU NEB SCH ×4 (01:07→19:14)
[2022-08-14] MEDS: OMEPRAZOLE 20 MG CAPSULE.DR GT SCH ×2 (05:24→17:03)
[2022-08-14] MEDS: BACLOFEN 20 MG TABLET GT SCH ×3 (05:24→22:20)
[2022-08-14] MEDS: HYDROGEN PEROXIDE 3% 118 ML BOTTLE TP SCH ×2 (08:05→19:14)
[2022-08-14] MEDS: ASPIRIN 81 MG TAB.CHEW GT SCH (08:41)
[2022-08-14] MEDS: METOPROLOL TARTRATE 25 MG TABLET GT SCH ×2 (08:42→20:39)
[2022-08-14] MEDS: ACIDOPHILUS/BULGARICUS CHEW TAB GT SCH ×2 (08:42→20:26)
[2022-08-14] MEDS: LOSARTAN POTASSIUM 25 MG TABLET GT SCH (08:42)
[2022-08-14] MEDS: REMEDY ESSENTIAL ZINC PASTE 113 GM TP SCH ×2 (08:42→20:27)
[2022-08-14] MEDS: SODIUM CHLORIDE 1,000 MG TABLET GT SCH ×3 (08:42→17:03)
[2022-08-14] MEDS: CLOPIDOGREL 75 MG TABLET GT SCH (08:42)
[2022-08-14] MEDS: VITAMINS A AND D OINT 42 GM TUBE TP SCH ×2 (08:42→20:27)
[2022-08-14] MEDS: VITAL AF 1.2 1,000 ML LIQUID GT PRN (08:44)
[2022-08-14] MEDS: diphenhydrAMINE 25 MG/10 ML UDC GT PRN (13:09)
[2022-08-14] MEDS: NUTRISOURCE FIBER 4 GM PACKET GT SCH (20:27)
[2022-08-14] MEDS: ATORVASTATIN 20 MG TABLET GT SCH (20:32)
[2022-08-15] VITALS (11 sets, daily range): TEMP 96.8–97.7; O2SAT 97–99
[2022-08-15] MEDS: ALBUTEROL SULFATE 2.5 MG/3 ML NEBU NEB SCH ×4 (01:45→19:17)
[2022-08-15] MEDS: BACLOFEN 20 MG TABLET GT SCH ×3 (05:19→21:47)
[2022-08-15] MEDS: OMEPRAZOLE 20 MG CAPSULE.DR GT SCH ×2 (05:20→17:35)
[2022-08-15] MEDS: HYDROGEN PEROXIDE 3% 118 ML BOTTLE TP SCH ×2 (08:03→21:57)
[2022-08-15] MEDS: ASPIRIN 81 MG TAB.CHEW GT SCH (09:15)
[2022-08-15] MEDS: METOPROLOL TARTRATE 25 MG TABLET GT SCH ×2 (09:16→21:00)
[2022-08-15] MEDS: LOSARTAN POTASSIUM 25 MG TABLET GT SCH (09:16)
[2022-08-15] MEDS: VITAMINS A AND D OINT 42 GM TUBE TP SCH ×2 (09:16→21:47)
[2022-08-15] MEDS: SODIUM CHLORIDE 1,000 MG TABLET GT SCH ×3 (09:16→17:35)
[2022-08-15] MEDS: CLOPIDOGREL 75 MG TABLET GT SCH (09:16)
[2022-08-15] MEDS: ACIDOPHILUS/BULGARICUS CHEW TAB GT SCH ×2 (09:16→21:47)
[2022-08-15] MEDS: REMEDY ESSENTIAL ZINC PASTE 113 GM TP SCH ×2 (09:16→21:47)
[2022-08-15] MEDS: NUTRISOURCE FIBER 4 GM PACKET GT SCH (21:47)
[2022-08-15] MEDS: ATORVASTATIN 20 MG TABLET GT SCH (21:47)
[2022-08-15] MEDS: MULTIVIT, IRON, MIN NO. 8, FA TABLET GT SCH (21:47)
[2022-08-16] VITALS (10 sets, daily range): TEMP 97.8; O2SAT 97–99
[2022-08-16] MEDS: ALBUTEROL SULFATE 2.5 MG/3 ML NEBU NEB SCH ×4 (01:05→19:59)
[2022-08-16] MEDS: BACLOFEN 20 MG TABLET GT SCH ×3 (05:07→21:30)
[2022-08-16] MEDS: OMEPRAZOLE 20 MG CAPSULE.DR GT SCH ×2 (05:07→17:24)
[2022-08-16] MEDS: VITAL AF 1.2 1,000 ML LIQUID GT PRN (05:07)
[2022-08-16] MEDS: diphenhydrAMINE 25 MG/10 ML UDC GT PRN (06:33)
[2022-08-16] MEDS: HYDROGEN PEROXIDE 3% 118 ML BOTTLE TP SCH ×2 (09:00→19:59)
[2022-08-16] MEDS: ASPIRIN 81 MG TAB.CHEW GT SCH (09:36)
[2022-08-16] MEDS: CLOPIDOGREL 75 MG TABLET GT SCH (09:38)
[2022-08-16] MEDS: REMEDY ESSENTIAL ZINC PASTE 113 GM TP SCH ×2 (09:38→21:30)
[2022-08-16] MEDS: ACIDOPHILUS/BULGARICUS CHEW TAB GT SCH ×2 (09:38→21:29)
[2022-08-16] MEDS: VITAMINS A AND D OINT 42 GM TUBE TP SCH ×2 (09:38→21:30)
[2022-08-16] MEDS: METOPROLOL TARTRATE 25 MG TABLET GT SCH ×2 (09:38→21:30)
[2022-08-16] MEDS: SODIUM CHLORIDE 1,000 MG TABLET GT SCH ×3 (09:38→17:24)
[2022-08-16] MEDS: LOSARTAN POTASSIUM 25 MG TABLET GT SCH (09:38)
[2022-08-16] MEDS: ATORVASTATIN 20 MG TABLET GT SCH (21:29)
[2022-08-16] MEDS: NUTRISOURCE FIBER 4 GM PACKET GT SCH (21:30)
[2022-08-17] VITALS (10 sets, daily range): TEMP 98.1–98.7; O2SAT 97–99
[2022-08-17] MEDS: ALBUTEROL SULFATE 2.5 MG/3 ML NEBU NEB SCH ×4 (01:09→19:40)
[2022-08-17] MEDS: BACLOFEN 20 MG TABLET GT SCH ×3 (05:35→22:00)
[2022-08-17] MEDS: OMEPRAZOLE 20 MG CAPSULE.DR GT SCH ×2 (05:35→17:15)
[2022-08-17] MEDS: HYDROGEN PEROXIDE 3% 118 ML BOTTLE TP SCH ×2 (07:40→19:40)
[2022-08-17] MEDS: ASPIRIN 81 MG TAB.CHEW GT SCH (08:30)
[2022-08-17] MEDS: ACIDOPHILUS/BULGARICUS CHEW TAB GT SCH ×2 (08:30→21:59)
[2022-08-17] MEDS: LOSARTAN POTASSIUM 25 MG TABLET GT SCH (08:30)
[2022-08-17] MEDS: REMEDY ESSENTIAL ZINC PASTE 113 GM TP SCH ×2 (08:31→21:00)
[2022-08-17] MEDS: CLOPIDOGREL 75 MG TABLET GT SCH (08:31)
[2022-08-17] MEDS: VITAMINS A AND D OINT 42 GM TUBE TP SCH ×2 (08:31→21:00)
[2022-08-17] MEDS: SODIUM CHLORIDE 1,000 MG TABLET GT SCH ×3 (08:31→17:15)
[2022-08-17] MEDS: METOPROLOL TARTRATE 25 MG TABLET GT SCH ×2 (08:31→22:00)
[2022-08-17] MEDS: NUTRISOURCE FIBER 4 GM PACKET GT SCH (21:00)
[2022-08-17] MEDS: MULTIVIT, IRON, MIN NO. 8, FA TABLET GT SCH (21:00)
[2022-08-17] MEDS: ATORVASTATIN 20 MG TABLET GT SCH (21:59)
[2022-08-17] MEDS: VITAL AF 1.2 1,000 ML LIQUID GT PRN (22:02)
[2022-08-18] VITALS (8 sets, daily range): O2SAT 97–98
[2022-08-18] MEDS: ALBUTEROL SULFATE 2.5 MG/3 ML NEBU NEB SCH ×4 (00:55→19:15)
[2022-08-18] MEDS: BACLOFEN 20 MG TABLET GT SCH ×3 (05:19→21:21)
[2022-08-18] MEDS: OMEPRAZOLE 20 MG CAPSULE.DR GT SCH ×2 (05:19→17:14)
[2022-08-18] MEDS: HYDROGEN PEROXIDE 3% 118 ML BOTTLE TP SCH ×2 (07:29→19:15)
[2022-08-18] MEDS: ASPIRIN 81 MG TAB.CHEW GT SCH (08:40)
[2022-08-18] MEDS: LOSARTAN POTASSIUM 25 MG TABLET GT SCH (08:42)
[2022-08-18] MEDS: ACIDOPHILUS/BULGARICUS CHEW TAB GT SCH ×2 (08:42→21:21)
[2022-08-18] MEDS: METOPROLOL TARTRATE 25 MG TABLET GT SCH ×2 (08:43→21:21)
[2022-08-18] MEDS: CLOPIDOGREL 75 MG TABLET GT SCH (08:43)
[2022-08-18] MEDS: SODIUM CHLORIDE 1,000 MG TABLET GT SCH ×3 (08:43→16:41)
[2022-08-18] MEDS: REMEDY ESSENTIAL ZINC PASTE 113 GM TP SCH ×2 (08:43→21:21)
[2022-08-18] MEDS: VITAMINS A AND D OINT 42 GM TUBE TP SCH ×2 (08:44→21:21)
[2022-08-18] MEDS: diphenhydrAMINE 25 MG/10 ML UDC GT PRN ×2 (13:09→21:42)
[2022-08-18] MEDS: VITAL AF 1.2 1,000 ML LIQUID GT PRN (19:04)
[2022-08-18] MEDS: ATORVASTATIN 20 MG TABLET GT SCH (21:21)
[2022-08-18] MEDS: NUTRISOURCE FIBER 4 GM PACKET GT SCH (21:21)
[2022-08-19] VITALS (10 sets, daily range): TEMP 97.5–97.7; O2SAT 97–99
[2022-08-19] MEDS: ALBUTEROL SULFATE 2.5 MG/3 ML NEBU NEB SCH ×4 (01:30→19:43)
[2022-08-19] MEDS: OMEPRAZOLE 20 MG CAPSULE.DR GT SCH ×2 (05:21→17:01)
[2022-08-19] MEDS: BACLOFEN 20 MG TABLET GT SCH ×3 (05:21→21:45)
[2022-08-19] MEDS: HYDROGEN PEROXIDE 3% 118 ML BOTTLE TP SCH ×2 (08:39→19:43)
[2022-08-19] MEDS: ASPIRIN 81 MG TAB.CHEW GT SCH (09:17)
[2022-08-19] MEDS: LOSARTAN POTASSIUM 25 MG TABLET GT SCH (09:18)
[2022-08-19] MEDS: ACIDOPHILUS/BULGARICUS CHEW TAB GT SCH ×2 (09:18→21:45)
[2022-08-19] MEDS: METOPROLOL TARTRATE 25 MG TABLET GT SCH ×2 (09:19→21:00)
[2022-08-19] MEDS: REMEDY ESSENTIAL ZINC PASTE 113 GM TP SCH ×2 (09:20→21:45)
[2022-08-19] MEDS: CLOPIDOGREL 75 MG TABLET GT SCH (09:20)
[2022-08-19] MEDS: SODIUM CHLORIDE 1,000 MG TABLET GT SCH ×3 (09:20→17:01)
[2022-08-19] MEDS: VITAMINS A AND D OINT 42 GM TUBE TP SCH ×2 (09:20→21:45)
[2022-08-19] MEDS: ACETAMINOPHEN 650 MG/20 ML UDC- SA PATIENTS-PAIN ONLY GT PRN (17:09)
[2022-08-19] MEDS: MULTIVIT, IRON, MIN NO. 8, FA TABLET GT SCH (21:45)
[2022-08-19] MEDS: NUTRISOURCE FIBER 4 GM PACKET GT SCH (21:45)
[2022-08-19] MEDS: ATORVASTATIN 20 MG TABLET GT SCH (21:45)
[2022-08-20] VITALS (12 sets, daily range): TEMP 97.6; O2SAT 97–98
[2022-08-20] MEDS: ALBUTEROL SULFATE 2.5 MG/3 ML NEBU NEB SCH ×4 (00:41→19:41)
[2022-08-20] MEDS: BACLOFEN 20 MG TABLET GT SCH ×3 (05:21→21:59)
[2022-08-20] MEDS: OMEPRAZOLE 20 MG CAPSULE.DR GT SCH ×2 (05:21→18:15)
[2022-08-20] MEDS: HYDROGEN PEROXIDE 3% 118 ML BOTTLE TP SCH ×2 (08:04→19:41)
[2022-08-20] MEDS: ASPIRIN 81 MG TAB.CHEW GT SCH (08:29)
[2022-08-20] MEDS: METOPROLOL TARTRATE 25 MG TABLET GT SCH ×2 (08:32→21:00)
[2022-08-20] MEDS: LOSARTAN POTASSIUM 25 MG TABLET GT SCH (08:32)
[2022-08-20] MEDS: ACIDOPHILUS/BULGARICUS CHEW TAB GT SCH ×2 (08:32→21:58)
[2022-08-20] MEDS: SODIUM CHLORIDE 1,000 MG TABLET GT SCH ×3 (08:34→17:32)
[2022-08-20] MEDS: CLOPIDOGREL 75 MG TABLET GT SCH (08:34)
[2022-08-20] MEDS: VITAMINS A AND D OINT 42 GM TUBE TP SCH ×2 (08:35→21:59)
[2022-08-20] MEDS: REMEDY ESSENTIAL ZINC PASTE 113 GM TP SCH ×2 (08:35→21:59)
[2022-08-20] MEDS: VITAL AF 1.2 1,000 ML LIQUID GT PRN (19:08)
[2022-08-20] MEDS: ATORVASTATIN 20 MG TABLET GT SCH (21:58)
[2022-08-20] MEDS: NUTRISOURCE FIBER 4 GM PACKET GT SCH (21:59)
[2022-08-21] VITALS (10 sets, daily range): TEMP 97.6–97.9; O2SAT 97–98
[2022-08-21] MEDS: ALBUTEROL SULFATE 2.5 MG/3 ML NEBU NEB SCH ×4 (00:54→19:38)
[2022-08-21] MEDS: BACLOFEN 20 MG TABLET GT SCH ×3 (05:20→21:44)
[2022-08-21] MEDS: OMEPRAZOLE 20 MG CAPSULE.DR GT SCH ×2 (05:20→18:46)
[2022-08-21] MEDS: METOPROLOL TARTRATE 25 MG TABLET GT SCH ×2 (09:00→20:39)
[2022-08-21] MEDS: LOSARTAN POTASSIUM 25 MG TABLET GT SCH (09:00)
[2022-08-21] MEDS: ASPIRIN 81 MG TAB.CHEW GT SCH (09:10)
[2022-08-21] MEDS: ACIDOPHILUS/BULGARICUS CHEW TAB GT SCH ×2 (09:11→20:38)
[2022-08-21] MEDS: SODIUM CHLORIDE 1,000 MG TABLET GT SCH ×3 (09:14→17:22)
[2022-08-21] MEDS: CLOPIDOGREL 75 MG TABLET GT SCH (09:14)
[2022-08-21] MEDS: VITAMINS A AND D OINT 42 GM TUBE TP SCH ×2 (09:14→20:39)
[2022-08-21] MEDS: REMEDY ESSENTIAL ZINC PASTE 113 GM TP SCH ×2 (09:14→20:39)
[2022-08-21] MEDS: diphenhydrAMINE 25 MG/10 ML UDC GT PRN (09:27)
[2022-08-21] MEDS: HYDROGEN PEROXIDE 3% 118 ML BOTTLE TP SCH ×2 (09:40→19:38)
[2022-08-21] MEDS: VITAL AF 1.2 1,000 ML LIQUID GT PRN (17:22)
[2022-08-21] MEDS: ATORVASTATIN 20 MG TABLET GT SCH (20:38)
[2022-08-21] MEDS: NUTRISOURCE FIBER 4 GM PACKET GT SCH (20:39)
[2022-08-21] MEDS: MULTIVIT, IRON, MIN NO. 8, FA TABLET GT SCH (20:39)
[2022-08-22] VITALS (10 sets, daily range): TEMP 80–98.8; O2SAT 97–99
[2022-08-22] MEDS: ALBUTEROL SULFATE 2.5 MG/3 ML NEBU NEB SCH ×4 (00:43→19:34)
[2022-08-22] MEDS: BACLOFEN 20 MG TABLET GT SCH ×3 (05:08→21:06)
[2022-08-22] MEDS: OMEPRAZOLE 20 MG CAPSULE.DR GT SCH ×2 (05:08→17:09)
[2022-08-22] MEDS: HYDROGEN PEROXIDE 3% 118 ML BOTTLE TP SCH ×2 (08:03→19:34)
[2022-08-22] MEDS: LOSARTAN POTASSIUM 25 MG TABLET GT SCH (08:41)
[2022-08-22] MEDS: ACIDOPHILUS/BULGARICUS CHEW TAB GT SCH ×2 (08:42→20:48)
[2022-08-22] MEDS: METOPROLOL TARTRATE 25 MG TABLET GT SCH ×2 (08:43→20:48)
[2022-08-22] MEDS: SODIUM CHLORIDE 1,000 MG TABLET GT SCH ×3 (08:44→17:09)
[2022-08-22] MEDS: CLOPIDOGREL 75 MG TABLET GT SCH (08:46)
[2022-08-22] MEDS: ASPIRIN 81 MG TAB.CHEW GT SCH (08:47)
[2022-08-22] MEDS: REMEDY ESSENTIAL ZINC PASTE 113 GM TP SCH ×2 (08:47→20:48)
[2022-08-22] MEDS: VITAMINS A AND D OINT 42 GM TUBE TP SCH ×2 (08:49→20:48)
[2022-08-22] MEDS: NUTRISOURCE FIBER 4 GM PACKET GT SCH (20:48)
[2022-08-22] MEDS: ATORVASTATIN 20 MG TABLET GT SCH (20:48)
[2022-08-22] MEDS: VITAL AF 1.2 1,000 ML LIQUID GT PRN (21:15)
[2022-08-23] VITALS (10 sets, daily range): TEMP 97.1–98.4; O2SAT 97–99
[2022-08-23] MEDS: ALBUTEROL SULFATE 2.5 MG/3 ML NEBU NEB SCH ×4 (00:43→19:27)
[2022-08-23] MEDS: BACLOFEN 20 MG TABLET GT SCH ×3 (05:44→22:18)
[2022-08-23] MEDS: OMEPRAZOLE 20 MG CAPSULE.DR GT SCH ×2 (05:44→17:01)
[2022-08-23] MEDS: HYDROGEN PEROXIDE 3% 118 ML BOTTLE TP SCH ×2 (08:19→21:00)
[2022-08-23] MEDS: ACIDOPHILUS/BULGARICUS CHEW TAB GT SCH ×2 (08:55→20:35)
[2022-08-23] MEDS: REMEDY ESSENTIAL ZINC PASTE 113 GM TP SCH ×2 (08:55→20:50)
[2022-08-23] MEDS: CLOPIDOGREL 75 MG TABLET GT SCH (08:55)
[2022-08-23] MEDS: VITAMINS A AND D OINT 42 GM TUBE TP SCH ×2 (08:55→20:50)
[2022-08-23] MEDS: SODIUM CHLORIDE 1,000 MG TABLET GT SCH ×3 (08:55→17:01)
[2022-08-23] MEDS: METOPROLOL TARTRATE 25 MG TABLET GT SCH ×2 (08:55→20:49)
[2022-08-23] MEDS: ASPIRIN 81 MG TAB.CHEW GT SCH (08:55)
[2022-08-23] MEDS: LOSARTAN POTASSIUM 25 MG TABLET GT SCH (08:55)
[2022-08-23] MEDS: ATORVASTATIN 20 MG TABLET GT SCH (20:35)
[2022-08-23] MEDS: NUTRISOURCE FIBER 4 GM PACKET GT SCH (20:41)
[2022-08-23] MEDS: MULTIVIT, IRON, MIN NO. 8, FA TABLET GT SCH (20:49)
[2022-08-24] VITALS (10 sets, daily range): TEMP 97.6–98; O2SAT 97–99
[2022-08-24] MEDS: ALBUTEROL SULFATE 2.5 MG/3 ML NEBU NEB SCH ×4 (01:22→19:22)
[2022-08-24] MEDS: VITAL AF 1.2 1,000 ML LIQUID GT PRN (01:55)
[2022-08-24] MEDS: BACLOFEN 20 MG TABLET GT SCH ×3 (06:02→21:10)
[2022-08-24] MEDS: OMEPRAZOLE 20 MG CAPSULE.DR GT SCH ×2 (06:02→17:22)
[2022-08-24] MEDS: ASPIRIN 81 MG TAB.CHEW GT SCH (08:33)
[2022-08-24] MEDS: ACIDOPHILUS/BULGARICUS CHEW TAB GT SCH ×2 (08:33→20:25)
[2022-08-24] MEDS: SODIUM CHLORIDE 1,000 MG TABLET GT SCH ×3 (08:35→17:22)
[2022-08-24] MEDS: METOPROLOL TARTRATE 25 MG TABLET GT SCH ×2 (08:35→20:25)
[2022-08-24] MEDS: VITAMINS A AND D OINT 42 GM TUBE TP SCH ×2 (08:36→20:25)
[2022-08-24] MEDS: CLOPIDOGREL 75 MG TABLET GT SCH (08:36)
[2022-08-24] MEDS: REMEDY ESSENTIAL ZINC PASTE 113 GM TP SCH ×2 (08:36→20:25)
[2022-08-24] MEDS: LOSARTAN POTASSIUM 25 MG TABLET GT SCH (08:40)
[2022-08-24] MEDS: HYDROGEN PEROXIDE 3% 118 ML BOTTLE TP SCH ×2 (09:05→21:28)
[2022-08-24] MEDS: ATORVASTATIN 20 MG TABLET GT SCH (20:25)
[2022-08-24] MEDS: NUTRISOURCE FIBER 4 GM PACKET GT SCH (20:25)
[2022-08-25] VITALS (11 sets, daily range): TEMP 98.2–98.5; O2SAT 97–99
[2022-08-25] MEDS: ACETAMINOPHEN 650 MG/20 ML UDC- SA PATIENTS-PAIN ONLY GT PRN (01:30)
[2022-08-25] MEDS: ALBUTEROL SULFATE 2.5 MG/3 ML NEBU NEB SCH ×4 (01:32→21:34)
[2022-08-25] MEDS: VITAL AF 1.2 1,000 ML LIQUID GT PRN (04:07)
[2022-08-25] MEDS: OMEPRAZOLE 20 MG CAPSULE.DR GT SCH ×2 (05:35→17:00)
[2022-08-25] MEDS: BACLOFEN 20 MG TABLET GT SCH ×3 (05:35→22:00)
[2022-08-25] MEDS: ASPIRIN 81 MG TAB.CHEW GT SCH (08:23)
[2022-08-25] MEDS: LOSARTAN POTASSIUM 25 MG TABLET GT SCH (08:23)
[2022-08-25] MEDS: METOPROLOL TARTRATE 25 MG TABLET GT SCH ×2 (08:24→20:36)
[2022-08-25] MEDS: ACIDOPHILUS/BULGARICUS CHEW TAB GT SCH ×2 (08:24→20:35)
[2022-08-25] MEDS: SODIUM CHLORIDE 1,000 MG TABLET GT SCH ×3 (08:24→16:50)
[2022-08-25] MEDS: NEOMY/BACITRA/POLYMYXIN B OINT UD PACKET TP SCH (08:25)
[2022-08-25] MEDS: VITAMINS A AND D OINT 42 GM TUBE TP SCH ×2 (08:25→20:39)
[2022-08-25] MEDS: CLOPIDOGREL 75 MG TABLET GT SCH (08:25)
[2022-08-25] MEDS: REMEDY ESSENTIAL ZINC PASTE 113 GM TP SCH ×2 (08:25→20:39)
[2022-08-25] MEDS: HYDROGEN PEROXIDE 3% 118 ML BOTTLE TP SCH ×2 (09:17→21:35)
[2022-08-25] MEDS: ATORVASTATIN 20 MG TABLET GT SCH (20:36)
[2022-08-25] MEDS: NUTRISOURCE FIBER 4 GM PACKET GT SCH (20:38)
[2022-08-25] MEDS: MULTIVIT, IRON, MIN NO. 8, FA TABLET GT SCH (20:39)
[2022-08-26] VITALS (12 sets, daily range): TEMP 97.9–98.4; O2SAT 97–99
[2022-08-26] MEDS: ALBUTEROL SULFATE 2.5 MG/3 ML NEBU NEB SCH ×4 (00:21→19:46)
[2022-08-26] MEDS: VITAL 1.5 CAL LIQUID GT PRN (04:08)
[2022-08-26] MEDS: BACLOFEN 20 MG TABLET GT SCH ×3 (05:43→22:48)
[2022-08-26] MEDS: OMEPRAZOLE 20 MG CAPSULE.DR GT SCH ×2 (05:43→17:25)
[2022-08-26] MEDS: ASPIRIN 81 MG TAB.CHEW GT SCH (08:15)
[2022-08-26] MEDS: ACIDOPHILUS/BULGARICUS CHEW TAB GT SCH ×2 (08:18→20:18)
[2022-08-26] MEDS: METOPROLOL TARTRATE 25 MG TABLET GT SCH ×2 (08:28→20:19)
[2022-08-26] MEDS: SODIUM CHLORIDE 1,000 MG TABLET GT SCH ×3 (08:29→17:24)
[2022-08-26] MEDS: LOSARTAN POTASSIUM 25 MG TABLET GT SCH (08:30)
[2022-08-26] MEDS: CLOPIDOGREL 75 MG TABLET GT SCH (08:33)
[2022-08-26] MEDS: REMEDY ESSENTIAL ZINC PASTE 113 GM TP SCH ×2 (09:00→20:19)
[2022-08-26] MEDS: HYDROGEN PEROXIDE 3% 118 ML BOTTLE TP SCH ×2 (09:00→19:46)
[2022-08-26] MEDS: VITAMINS A AND D OINT 42 GM TUBE TP SCH ×2 (09:00→20:19)
[2022-08-26] MEDS: NEOMY/BACITRA/POLYMYXIN B OINT UD PACKET TP SCH (09:00)
[2022-08-26] MEDS: diphenhydrAMINE 25 MG/10 ML UDC GT PRN (17:28)
[2022-08-26] MEDS: ATORVASTATIN 20 MG TABLET GT SCH (20:18)
[2022-08-26] MEDS: NUTRISOURCE FIBER 4 GM PACKET GT SCH (20:19)
[2022-08-27] VITALS (10 sets, daily range): TEMP 97.3–98.4; O2SAT 97–98
[2022-08-27] MEDS: ALBUTEROL SULFATE 2.5 MG/3 ML NEBU NEB SCH ×4 (00:40→19:09)
[2022-08-27] MEDS: BACLOFEN 20 MG TABLET GT SCH ×3 (05:50→21:55)
[2022-08-27] MEDS: OMEPRAZOLE 20 MG CAPSULE.DR GT SCH ×2 (05:50→18:24)
[2022-08-27] MEDS: NEOMY/BACITRA/POLYMYXIN B OINT UD PACKET TP SCH (09:00)
[2022-08-27] MEDS: VITAMINS A AND D OINT 42 GM TUBE TP SCH ×2 (09:00→21:55)
[2022-08-27] MEDS: REMEDY ESSENTIAL ZINC PASTE 113 GM TP SCH ×2 (09:00→21:55)
[2022-08-27] MEDS: HYDROGEN PEROXIDE 3% 118 ML BOTTLE TP SCH ×2 (09:05→21:11)
[2022-08-27] MEDS: ASPIRIN 81 MG TAB.CHEW GT SCH (09:31)
[2022-08-27] MEDS: LOSARTAN POTASSIUM 25 MG TABLET GT SCH (09:38)
[2022-08-27] MEDS: ACIDOPHILUS/BULGARICUS CHEW TAB GT SCH ×2 (09:39→21:53)
[2022-08-27] MEDS: SODIUM CHLORIDE 1,000 MG TABLET GT SCH ×3 (09:40→17:00)
[2022-08-27] MEDS: METOPROLOL TARTRATE 25 MG TABLET GT SCH ×2 (09:40→21:00)
[2022-08-27] MEDS: CLOPIDOGREL 75 MG TABLET GT SCH (09:43)
[2022-08-27] MEDS: VITAL 1.5 CAL LIQUID GT PRN (10:22)
[2022-08-27] MEDS: ATORVASTATIN 20 MG TABLET GT SCH (21:53)
[2022-08-27] MEDS: MULTIVIT, IRON, MIN NO. 8, FA TABLET GT SCH (21:54)
[2022-08-27] MEDS: NUTRISOURCE FIBER 4 GM PACKET GT SCH (21:54)
[2022-08-28] VITALS (11 sets, daily range): BP systolic 122; BP diastolic 56; TEMP 97–97.8; O2SAT 97–99
[2022-08-28] MEDS: ALBUTEROL SULFATE 2.5 MG/3 ML NEBU NEB SCH ×4 (02:12→19:09)
[2022-08-28] MEDS: BACLOFEN 20 MG TABLET GT SCH ×3 (05:27→21:03)
[2022-08-28] MEDS: OMEPRAZOLE 20 MG CAPSULE.DR GT SCH ×2 (05:27→17:23)
[2022-08-28] MEDS: HYDROGEN PEROXIDE 3% 118 ML BOTTLE TP SCH ×2 (08:38→21:05)
[2022-08-28] MEDS: REMEDY ESSENTIAL ZINC PASTE 113 GM TP SCH ×2 (09:00→21:03)
[2022-08-28] MEDS: ASPIRIN 81 MG TAB.CHEW GT SCH (09:29)
[2022-08-28] MEDS: ACIDOPHILUS/BULGARICUS CHEW TAB GT SCH ×2 (09:32→21:02)
[2022-08-28] MEDS: LOSARTAN POTASSIUM 25 MG TABLET GT SCH (09:35)
[2022-08-28] MEDS: SODIUM CHLORIDE 1,000 MG TABLET GT SCH ×3 (09:35→17:23)
[2022-08-28] MEDS: METOPROLOL TARTRATE 25 MG TABLET GT SCH ×2 (09:35→21:03)
[2022-08-28] MEDS: VITAMINS A AND D OINT 42 GM TUBE TP SCH ×2 (09:35→21:03)
[2022-08-28] MEDS: NEOMY/BACITRA/POLYMYXIN B OINT UD PACKET TP SCH (09:35)
[2022-08-28] MEDS: CLOPIDOGREL 75 MG TABLET GT SCH (09:35)
[2022-08-28] MEDS: diphenhydrAMINE 25 MG/10 ML UDC GT PRN (10:10)
[2022-08-28] MEDS: VITAL 1.5 CAL LIQUID GT PRN (10:10)
[2022-08-28] MEDS: ATORVASTATIN 20 MG TABLET GT SCH (21:02)
[2022-08-28] MEDS: NUTRISOURCE FIBER 4 GM PACKET GT SCH (21:03)
[2022-08-29] VITALS (11 sets, daily range): BP systolic 146; BP diastolic 62; TEMP 97.8–98.3; O2SAT 95–99
[2022-08-29] MEDS: ALBUTEROL SULFATE 2.5 MG/3 ML NEBU NEB SCH ×4 (01:00→20:14)
[2022-08-29] MEDS: OMEPRAZOLE 20 MG CAPSULE.DR GT SCH ×2 (05:42→17:03)
[2022-08-29] MEDS: BACLOFEN 20 MG TABLET GT SCH ×3 (05:42→21:34)
[2022-08-29] MEDS: VITAL 1.5 CAL LIQUID GT PRN (05:43)
[2022-08-29] MEDS: ASPIRIN 81 MG TAB.CHEW GT SCH (08:13)
[2022-08-29] MEDS: LOSARTAN POTASSIUM 25 MG TABLET GT SCH (08:13)
[2022-08-29] MEDS: ACIDOPHILUS/BULGARICUS CHEW TAB GT SCH ×2 (08:13→21:34)
[2022-08-29] MEDS: METOPROLOL TARTRATE 25 MG TABLET GT SCH ×2 (08:13→21:34)
[2022-08-29] MEDS: VITAMINS A AND D OINT 42 GM TUBE TP SCH ×2 (08:14→21:34)
[2022-08-29] MEDS: REMEDY ESSENTIAL ZINC PASTE 113 GM TP SCH ×2 (08:14→21:34)
[2022-08-29] MEDS: NEOMY/BACITRA/POLYMYXIN B OINT UD PACKET TP SCH (08:14)
[2022-08-29] MEDS: SODIUM CHLORIDE 1,000 MG TABLET GT SCH ×3 (08:14→17:03)
[2022-08-29] MEDS: CLOPIDOGREL 75 MG TABLET GT SCH (08:14)
[2022-08-29] MEDS: HYDROGEN PEROXIDE 3% 118 ML BOTTLE TP SCH ×2 (08:22→20:14)
[2022-08-29] MEDS: MULTIVIT, IRON, MIN NO. 8, FA TABLET GT SCH (21:34)
[2022-08-29] MEDS: ATORVASTATIN 20 MG TABLET GT SCH (21:34)
[2022-08-29] MEDS: NUTRISOURCE FIBER 4 GM PACKET GT SCH (21:34)
[2022-08-30] VITALS (11 sets, daily range): TEMP 97.1–97.8; O2SAT 97–99
[2022-08-30] MEDS: ALBUTEROL SULFATE 2.5 MG/3 ML NEBU NEB SCH ×4 (01:23→20:12)
[2022-08-30] MEDS: VITAL 1.5 CAL LIQUID GT PRN (02:24)
[2022-08-30] MEDS: BACLOFEN 20 MG TABLET GT SCH ×3 (05:36→21:41)
[2022-08-30] MEDS: OMEPRAZOLE 20 MG CAPSULE.DR GT SCH ×2 (05:36→17:19)
[2022-08-30] MEDS: METOPROLOL TARTRATE 25 MG TABLET GT SCH ×2 (08:35→20:42)
[2022-08-30] MEDS: ASPIRIN 81 MG TAB.CHEW GT SCH (08:35)
[2022-08-30] MEDS: ACIDOPHILUS/BULGARICUS CHEW TAB GT SCH ×2 (08:35→20:42)
[2022-08-30] MEDS: LOSARTAN POTASSIUM 25 MG TABLET GT SCH (08:35)
[2022-08-30] MEDS: CLOPIDOGREL 75 MG TABLET GT SCH (08:36)
[2022-08-30] MEDS: NEOMY/BACITRA/POLYMYXIN B OINT UD PACKET TP SCH (08:36)
[2022-08-30] MEDS: REMEDY ESSENTIAL ZINC PASTE 113 GM TP SCH ×2 (08:36→20:43)
[2022-08-30] MEDS: SODIUM CHLORIDE 1,000 MG TABLET GT SCH ×3 (08:36→16:38)
[2022-08-30] MEDS: VITAMINS A AND D OINT 42 GM TUBE TP SCH ×2 (08:36→20:43)
[2022-08-30] MEDS: HYDROGEN PEROXIDE 3% 118 ML BOTTLE TP SCH ×2 (08:42→20:13)
[2022-08-30] MEDS: diphenhydrAMINE 25 MG/10 ML UDC GT PRN (16:38)
[2022-08-30] MEDS: NUTRISOURCE FIBER 4 GM PACKET GT SCH (20:42)
[2022-08-30] MEDS: ATORVASTATIN 20 MG TABLET GT SCH (20:42)
[2022-08-31] VITALS (10 sets, daily range): TEMP 98–98.4; O2SAT 97–99
[2022-08-31] MEDS: ALBUTEROL SULFATE 2.5 MG/3 ML NEBU NEB SCH ×4 (01:45→19:12)
[2022-08-31] MEDS: VITAL 1.5 CAL LIQUID GT PRN (03:39)
[2022-08-31] MEDS: BACLOFEN 20 MG TABLET GT SCH ×3 (05:29→22:57)
[2022-08-31] MEDS: OMEPRAZOLE 20 MG CAPSULE.DR GT SCH ×2 (05:29→17:10)
[2022-08-31] MEDS: HYDROGEN PEROXIDE 3% 118 ML BOTTLE TP SCH ×2 (08:02→19:12)
[2022-08-31] MEDS: ASPIRIN 81 MG TAB.CHEW GT SCH (08:50)
[2022-08-31] MEDS: ACIDOPHILUS/BULGARICUS CHEW TAB GT SCH ×2 (08:51→20:17)
[2022-08-31] MEDS: LOSARTAN POTASSIUM 25 MG TABLET GT SCH (08:51)
[2022-08-31] MEDS: NEOMY/BACITRA/POLYMYXIN B OINT UD PACKET TP SCH (08:52)
[2022-08-31] MEDS: METOPROLOL TARTRATE 25 MG TABLET GT SCH ×2 (08:52→20:29)
[2022-08-31] MEDS: SODIUM CHLORIDE 1,000 MG TABLET GT SCH ×3 (08:52→16:36)
[2022-08-31] MEDS: REMEDY ESSENTIAL ZINC PASTE 113 GM TP SCH ×2 (08:52→20:29)
[2022-08-31] MEDS: CLOPIDOGREL 75 MG TABLET GT SCH (08:52)
[2022-08-31] MEDS: VITAMINS A AND D OINT 42 GM TUBE TP SCH ×2 (08:52→20:34)
[2022-08-31] MEDS: ATORVASTATIN 20 MG TABLET GT SCH (20:28)
[2022-08-31] MEDS: NUTRISOURCE FIBER 4 GM PACKET GT SCH (20:29)
[2022-08-31] MEDS: MULTIVIT, IRON, MIN NO. 8, FA TABLET GT SCH (20:29)
[2022-09-01] VITALS (10 sets, daily range): TEMP 98.3–98.6; O2SAT 97–99
[2022-09-01] MEDS: ALBUTEROL SULFATE 2.5 MG/3 ML NEBU NEB SCH ×4 (01:08→20:01)
[2022-09-01] MEDS: BACLOFEN 20 MG TABLET GT SCH ×3 (05:01→21:38)
[2022-09-01] MEDS: VITAL 1.5 CAL LIQUID GT PRN (05:02)
[2022-09-01] MEDS: OMEPRAZOLE 20 MG CAPSULE.DR GT SCH ×2 (06:16→17:15)
[2022-09-01] MEDS: HYDROGEN PEROXIDE 3% 118 ML BOTTLE TP SCH ×2 (07:33→20:01)
[2022-09-01] MEDS: LOSARTAN POTASSIUM 25 MG TABLET GT SCH (09:14)
[2022-09-01] MEDS: ACIDOPHILUS/BULGARICUS CHEW TAB GT SCH ×2 (09:14→21:38)
[2022-09-01] MEDS: NEOMY/BACITRA/POLYMYXIN B OINT UD PACKET TP SCH (09:15)
[2022-09-01] MEDS: CLOPIDOGREL 75 MG TABLET GT SCH (09:15)
[2022-09-01] MEDS: SODIUM CHLORIDE 1,000 MG TABLET GT SCH ×3 (09:15→16:46)
[2022-09-01] MEDS: VITAMINS A AND D OINT 42 GM TUBE TP SCH ×2 (09:15→21:38)
[2022-09-01] MEDS: REMEDY ESSENTIAL ZINC PASTE 113 GM TP SCH ×2 (09:15→21:38)
[2022-09-01] MEDS: METOPROLOL TARTRATE 25 MG TABLET GT SCH ×2 (09:15→21:38)
[2022-09-01] MEDS: ASPIRIN 81 MG TAB.CHEW GT SCH (09:15)
[2022-09-01] MEDS: NUTRISOURCE FIBER 4 GM PACKET GT SCH (21:38)
[2022-09-01] MEDS: ATORVASTATIN 20 MG TABLET GT SCH (21:38)
[2022-09-02] VITALS (9 sets, daily range): TEMP 97.8; O2SAT 97–99
[2022-09-02] MEDS: ALBUTEROL SULFATE 2.5 MG/3 ML NEBU NEB SCH ×4 (00:57→18:11)
[2022-09-02] MEDS: OMEPRAZOLE 20 MG CAPSULE.DR GT SCH ×2 (05:27→17:03)
[2022-09-02] MEDS: BACLOFEN 20 MG TABLET GT SCH ×3 (05:27→22:00)
[2022-09-02] MEDS: VITAL 1.5 CAL LIQUID GT PRN (05:27)
[2022-09-02] MEDS: HYDROGEN PEROXIDE 3% 118 ML BOTTLE TP SCH ×2 (08:34→20:34)
[2022-09-02] MEDS: METOPROLOL TARTRATE 25 MG TABLET GT SCH ×2 (09:00→20:33)
[2022-09-02] MEDS: ASPIRIN 81 MG TAB.CHEW GT SCH (09:07)
[2022-09-02] MEDS: ACIDOPHILUS/BULGARICUS CHEW TAB GT SCH ×2 (09:08→20:32)
[2022-09-02] MEDS: LOSARTAN POTASSIUM 25 MG TABLET GT SCH (09:08)
[2022-09-02] MEDS: VITAMINS A AND D OINT 42 GM TUBE TP SCH ×2 (09:09→20:33)
[2022-09-02] MEDS: CLOPIDOGREL 75 MG TABLET GT SCH (09:09)
[2022-09-02] MEDS: SODIUM CHLORIDE 1,000 MG TABLET GT SCH ×3 (09:09→17:02)
[2022-09-02] MEDS: NEOMY/BACITRA/POLYMYXIN B OINT UD PACKET TP SCH (09:09)
[2022-09-02] MEDS: REMEDY ESSENTIAL ZINC PASTE 113 GM TP SCH ×2 (09:14→20:33)
[2022-09-02] MEDS: ATORVASTATIN 20 MG TABLET GT SCH (20:32)
[2022-09-02] MEDS: NUTRISOURCE FIBER 4 GM PACKET GT SCH (20:33)
[2022-09-02] MEDS: MULTIVIT, IRON, MIN NO. 8, FA TABLET GT SCH (20:33)
[2022-09-03] VITALS (10 sets, daily range): TEMP 98.2–98.3; O2SAT 97–99
[2022-09-03] MEDS: ALBUTEROL SULFATE 2.5 MG/3 ML NEBU NEB SCH ×4 (00:55→19:25)
[2022-09-03] MEDS: VITAL 1.5 CAL LIQUID GT PRN (02:35)
[2022-09-03] MEDS: BACLOFEN 20 MG TABLET GT SCH ×3 (06:10→22:08)
[2022-09-03] MEDS: OMEPRAZOLE 20 MG CAPSULE.DR GT SCH ×2 (06:10→17:30)
[2022-09-03] MEDS: HYDROGEN PEROXIDE 3% 118 ML BOTTLE TP SCH ×2 (08:07→21:22)
[2022-09-03] MEDS: METOPROLOL TARTRATE 25 MG TABLET GT SCH ×2 (09:00→20:23)
[2022-09-03] MEDS: ASPIRIN 81 MG TAB.CHEW GT SCH (09:25)
[2022-09-03] MEDS: ACIDOPHILUS/BULGARICUS CHEW TAB GT SCH ×2 (09:25→20:19)
[2022-09-03] MEDS: LOSARTAN POTASSIUM 25 MG TABLET GT SCH (09:25)
[2022-09-03] MEDS: CLOPIDOGREL 75 MG TABLET GT SCH (09:26)
[2022-09-03] MEDS: SODIUM CHLORIDE 1,000 MG TABLET GT SCH ×3 (09:26→16:53)
[2022-09-03] MEDS: VITAMINS A AND D OINT 42 GM TUBE TP SCH ×2 (09:29→20:23)
[2022-09-03] MEDS: REMEDY ESSENTIAL ZINC PASTE 113 GM TP SCH ×2 (09:29→20:23)
[2022-09-03] MEDS: NEOMY/BACITRA/POLYMYXIN B OINT UD PACKET TP SCH (09:29)
[2022-09-03] MEDS: ATORVASTATIN 20 MG TABLET GT SCH (20:22)
[2022-09-03] MEDS: NUTRISOURCE FIBER 4 GM PACKET GT SCH (20:23)
[2022-09-04] VITALS (10 sets, daily range): TEMP 97.5–97.8; O2SAT 97–98
[2022-09-04] MEDS: ALBUTEROL SULFATE 2.5 MG/3 ML NEBU NEB SCH ×4 (01:11→18:50)
[2022-09-04] MEDS: VITAL 1.5 CAL LIQUID GT PRN (01:40)
[2022-09-04] MEDS: BACLOFEN 20 MG TABLET GT SCH ×3 (05:18→21:52)
[2022-09-04] MEDS: OMEPRAZOLE 20 MG CAPSULE.DR GT SCH ×2 (05:18→18:31)
[2022-09-04] MEDS: HYDROGEN PEROXIDE 3% 118 ML BOTTLE TP SCH ×2 (08:09→20:57)
[2022-09-04] MEDS: NEOMY/BACITRA/POLYMYXIN B OINT UD PACKET TP SCH (09:00)
[2022-09-04] MEDS: METOPROLOL TARTRATE 25 MG TABLET GT SCH ×2 (09:00→21:52)
[2022-09-04] MEDS: LOSARTAN POTASSIUM 25 MG TABLET GT SCH (09:00)
[2022-09-04] MEDS: ASPIRIN 81 MG TAB.CHEW GT SCH (09:01)
[2022-09-04] MEDS: ACIDOPHILUS/BULGARICUS CHEW TAB GT SCH ×2 (09:02→21:45)
[2022-09-04] MEDS: REMEDY ESSENTIAL ZINC PASTE 113 GM TP SCH ×2 (09:04→21:47)
[2022-09-04] MEDS: CLOPIDOGREL 75 MG TABLET GT SCH (09:04)
[2022-09-04] MEDS: SODIUM CHLORIDE 1,000 MG TABLET GT SCH ×3 (09:04→17:00)
[2022-09-04] MEDS: diphenhydrAMINE 25 MG/10 ML UDC GT PRN (09:05)
[2022-09-04] MEDS: VITAMINS A AND D OINT 42 GM TUBE TP SCH ×2 (09:05→21:45)
[2022-09-04] MEDS: NUTRISOURCE FIBER 4 GM PACKET GT SCH (21:45)
[2022-09-04] MEDS: ATORVASTATIN 20 MG TABLET GT SCH (21:51)
[2022-09-04] MEDS: MULTIVIT, IRON, MIN NO. 8, FA TABLET GT SCH (21:52)
[2022-09-05] VITALS (10 sets, daily range): TEMP 97.6–98.7; O2SAT 98
[2022-09-05] MEDS: ALBUTEROL SULFATE 2.5 MG/3 ML NEBU NEB SCH ×4 (01:06→18:38)
[2022-09-05] MEDS: OMEPRAZOLE 20 MG CAPSULE.DR GT SCH ×2 (05:10→17:34)
[2022-09-05] MEDS: BACLOFEN 20 MG TABLET GT SCH ×3 (05:11→21:49)
[2022-09-05] MEDS: HYDROGEN PEROXIDE 3% 118 ML BOTTLE TP SCH ×2 (07:38→21:03)
[2022-09-05] MEDS: LOSARTAN POTASSIUM 25 MG TABLET GT SCH (08:25)
[2022-09-05] MEDS: NEOMY/BACITRA/POLYMYXIN B OINT UD PACKET TP SCH (08:25)
[2022-09-05] MEDS: METOPROLOL TARTRATE 25 MG TABLET GT SCH ×2 (08:25→21:50)
[2022-09-05] MEDS: VITAMINS A AND D OINT 42 GM TUBE TP SCH ×2 (08:25→21:49)
[2022-09-05] MEDS: ACIDOPHILUS/BULGARICUS CHEW TAB GT SCH ×2 (08:25→21:49)
[2022-09-05] MEDS: SODIUM CHLORIDE 1,000 MG TABLET GT SCH ×3 (08:25→17:33)
[2022-09-05] MEDS: REMEDY ESSENTIAL ZINC PASTE 113 GM TP SCH ×2 (08:25→21:49)
[2022-09-05] MEDS: ASPIRIN 81 MG TAB.CHEW GT SCH (08:25)
[2022-09-05] MEDS: CLOPIDOGREL 75 MG TABLET GT SCH (08:25)
[2022-09-05] MEDS: ATORVASTATIN 20 MG TABLET GT SCH (21:49)
[2022-09-05] MEDS: NUTRISOURCE FIBER 4 GM PACKET GT SCH (21:49)
[2022-09-06] VITALS (10 sets, daily range): TEMP 97.6–97.7; O2SAT 97–99
[2022-09-06] MEDS: ALBUTEROL SULFATE 2.5 MG/3 ML NEBU NEB SCH ×4 (00:54→19:40)
[2022-09-06] MEDS: BACLOFEN 20 MG TABLET GT SCH ×3 (05:37→22:09)
[2022-09-06] MEDS: OMEPRAZOLE 20 MG CAPSULE.DR GT SCH ×2 (05:37→17:14)
[2022-09-06] MEDS: HYDROGEN PEROXIDE 3% 118 ML BOTTLE TP SCH ×2 (08:21→21:03)
[2022-09-06] MEDS: SODIUM CHLORIDE 1,000 MG TABLET GT SCH ×3 (09:38→16:38)
[2022-09-06] MEDS: METOPROLOL TARTRATE 25 MG TABLET GT SCH ×2 (09:38→21:00)
[2022-09-06] MEDS: REMEDY ESSENTIAL ZINC PASTE 113 GM TP SCH ×2 (09:38→21:00)
[2022-09-06] MEDS: ACIDOPHILUS/BULGARICUS CHEW TAB GT SCH ×2 (09:38→21:00)
[2022-09-06] MEDS: ASPIRIN 81 MG TAB.CHEW GT SCH (09:38)
[2022-09-06] MEDS: VITAMINS A AND D OINT 42 GM TUBE TP SCH ×2 (09:38→21:00)
[2022-09-06] MEDS: NEOMY/BACITRA/POLYMYXIN B OINT UD PACKET TP SCH (09:38)
[2022-09-06] MEDS: CLOPIDOGREL 75 MG TABLET GT SCH (09:38)
[2022-09-06] MEDS: LOSARTAN POTASSIUM 25 MG TABLET GT SCH (09:38)
[2022-09-06] MEDS: NUTRISOURCE FIBER 4 GM PACKET GT SCH (21:00)
[2022-09-06] MEDS: MULTIVIT, IRON, MIN NO. 8, FA TABLET GT SCH (21:00)
[2022-09-06] MEDS: ATORVASTATIN 20 MG TABLET GT SCH (21:00)
[2022-09-07] VITALS (10 sets, daily range): TEMP 97.1–97.9; O2SAT 98–99
[2022-09-07] MEDS: ALBUTEROL SULFATE 2.5 MG/3 ML NEBU NEB SCH ×4 (00:59→19:23)
[2022-09-07] MEDS: OMEPRAZOLE 20 MG CAPSULE.DR GT SCH ×2 (05:26→17:07)
[2022-09-07] MEDS: BACLOFEN 20 MG TABLET GT SCH ×3 (05:26→21:41)
[2022-09-07] MEDS: ACETAMINOPHEN 650 MG/20 ML UDC- SA PATIENTS-PAIN ONLY GT PRN (05:26)
[2022-09-07] MEDS: LOSARTAN POTASSIUM 25 MG TABLET GT SCH (09:00)
[2022-09-07] MEDS: METOPROLOL TARTRATE 25 MG TABLET GT SCH ×2 (09:00→21:41)
[2022-09-07] MEDS: HYDROGEN PEROXIDE 3% 118 ML BOTTLE TP SCH ×2 (09:16→19:23)
[2022-09-07] MEDS: ASPIRIN 81 MG TAB.CHEW GT SCH (09:22)
[2022-09-07] MEDS: ACIDOPHILUS/BULGARICUS CHEW TAB GT SCH ×2 (09:22→21:40)
[2022-09-07] MEDS: SODIUM CHLORIDE 1,000 MG TABLET GT SCH ×3 (09:23→16:45)
[2022-09-07] MEDS: CLOPIDOGREL 75 MG TABLET GT SCH (09:23)
[2022-09-07] MEDS: NEOMY/BACITRA/POLYMYXIN B OINT UD PACKET TP SCH (09:23)
[2022-09-07] MEDS: REMEDY ESSENTIAL ZINC PASTE 113 GM TP SCH ×2 (09:23→21:41)
[2022-09-07] MEDS: VITAMINS A AND D OINT 42 GM TUBE TP SCH ×2 (09:24→21:41)
[2022-09-07] MEDS: VITAL 1.5 CAL LIQUID GT PRN (16:46)
[2022-09-07] MEDS: ATORVASTATIN 20 MG TABLET GT SCH (21:40)
[2022-09-07] MEDS: NUTRISOURCE FIBER 4 GM PACKET GT SCH (21:41)
[2022-09-08] VITALS (10 sets, daily range): TEMP 97.8–97.9; O2SAT 98–99
[2022-09-08] MEDS: ALBUTEROL SULFATE 2.5 MG/3 ML NEBU NEB SCH ×4 (00:48→19:18)
[2022-09-08] MEDS: BACLOFEN 20 MG TABLET GT SCH ×3 (05:26→21:26)
[2022-09-08] MEDS: OMEPRAZOLE 20 MG CAPSULE.DR GT SCH ×2 (05:26→17:12)
[2022-09-08] MEDS: HYDROGEN PEROXIDE 3% 118 ML BOTTLE TP SCH ×2 (08:10→19:18)
[2022-09-08] MEDS: ASPIRIN 81 MG TAB.CHEW GT SCH ×2 (08:48→13:30)
[2022-09-08] MEDS: CLOPIDOGREL 75 MG TABLET GT SCH ×2 (08:49→13:30)
[2022-09-08] MEDS: SODIUM CHLORIDE 1,000 MG TABLET GT SCH ×4 (08:49→17:12)
[2022-09-08] MEDS: ACIDOPHILUS/BULGARICUS CHEW TAB GT SCH ×3 (08:49→20:17)
[2022-09-08] MEDS: LOSARTAN POTASSIUM 25 MG TABLET GT SCH (08:49)
[2022-09-08] MEDS: METOPROLOL TARTRATE 25 MG TABLET GT SCH ×2 (08:49→20:18)
[2022-09-08] MEDS: REMEDY ESSENTIAL ZINC PASTE 113 GM TP SCH ×2 (08:50→20:18)
[2022-09-08] MEDS: VITAMINS A AND D OINT 42 GM TUBE TP SCH ×2 (08:50→20:18)
[2022-09-08] MEDS ORDERED: DIATR MEGLU/DIATRIZOATE SODIUM 30 ML BOTTLE PO ONE (09:13)
[2022-09-08] MEDS: diphenhydrAMINE 25 MG/10 ML UDC GT PRN (13:50)
[2022-09-08] MEDS: ATORVASTATIN 20 MG TABLET GT SCH (20:17)
[2022-09-08] MEDS: MULTIVIT, IRON, MIN NO. 8, FA TABLET GT SCH (20:18)
[2022-09-08] MEDS: NUTRISOURCE FIBER 4 GM PACKET GT SCH (20:18)
[2022-09-08] MEDS: VITAL 1.5 CAL LIQUID GT PRN (22:42)
[2022-09-09] VITALS (10 sets, daily range): TEMP 97.7–98.1; O2SAT 98–99
[2022-09-09] MEDS: ALBUTEROL SULFATE 2.5 MG/3 ML NEBU NEB SCH ×4 (01:03→19:15)
[2022-09-09] MEDS: OMEPRAZOLE 20 MG CAPSULE.DR GT SCH ×2 (05:01→18:49)
[2022-09-09] MEDS: BACLOFEN 20 MG TABLET GT SCH ×3 (05:01→21:45)
[2022-09-09] MEDS: HYDROGEN PEROXIDE 3% 118 ML BOTTLE TP SCH ×2 (07:37→19:15)
[2022-09-09] MEDS: ACIDOPHILUS/BULGARICUS CHEW TAB GT SCH ×2 (08:38→21:44)
[2022-09-09] MEDS: ASPIRIN 81 MG TAB.CHEW GT SCH (08:38)
[2022-09-09] MEDS: LOSARTAN POTASSIUM 25 MG TABLET GT SCH (08:38)
[2022-09-09] MEDS: VITAMINS A AND D OINT 42 GM TUBE TP SCH ×2 (08:39→21:44)
[2022-09-09] MEDS: CLOPIDOGREL 75 MG TABLET GT SCH (08:39)
[2022-09-09] MEDS: REMEDY ESSENTIAL ZINC PASTE 113 GM TP SCH ×2 (08:39→21:44)
[2022-09-09] MEDS: METOPROLOL TARTRATE 25 MG TABLET GT SCH ×2 (08:39→21:44)
[2022-09-09] MEDS: SODIUM CHLORIDE 1,000 MG TABLET GT SCH ×3 (08:39→17:00)
[2022-09-09] MEDS: VITAL 1.5 CAL LIQUID GT PRN (21:30)
[2022-09-09] MEDS: ATORVASTATIN 20 MG TABLET GT SCH (21:44)
[2022-09-09] MEDS: NUTRISOURCE FIBER 4 GM PACKET GT SCH (21:44)
[2022-09-10] VITALS (10 sets, daily range): TEMP 97.7–97.8; O2SAT 98–99
[2022-09-10] MEDS: ALBUTEROL SULFATE 2.5 MG/3 ML NEBU NEB SCH ×4 (01:30→19:18)
[2022-09-10] MEDS: BACLOFEN 20 MG TABLET GT SCH ×3 (05:00→22:01)
[2022-09-10] MEDS: OMEPRAZOLE 20 MG CAPSULE.DR GT SCH ×2 (05:00→17:26)
[2022-09-10] MEDS: diphenhydrAMINE 25 MG/10 ML UDC GT PRN (05:01)
[2022-09-10] MEDS: HYDROGEN PEROXIDE 3% 118 ML BOTTLE TP SCH ×2 (07:50→19:18)
[2022-09-10] MEDS: SODIUM CHLORIDE 1,000 MG TABLET GT SCH ×3 (08:38→17:26)
[2022-09-10] MEDS: LOSARTAN POTASSIUM 25 MG TABLET GT SCH (08:38)
[2022-09-10] MEDS: CLOPIDOGREL 75 MG TABLET GT SCH (08:38)
[2022-09-10] MEDS: ACIDOPHILUS/BULGARICUS CHEW TAB GT SCH ×2 (08:39→20:46)
[2022-09-10] MEDS: VITAMINS A AND D OINT 42 GM TUBE TP SCH ×2 (08:39→20:47)
[2022-09-10] MEDS: ASPIRIN 81 MG TAB.CHEW GT SCH (08:39)
[2022-09-10] MEDS: REMEDY ESSENTIAL ZINC PASTE 113 GM TP SCH ×2 (08:39→20:47)
[2022-09-10] MEDS: METOPROLOL TARTRATE 25 MG TABLET GT SCH ×2 (08:39→20:47)
[2022-09-10] MEDS: VITAL 1.5 CAL LIQUID GT PRN (18:00)
[2022-09-10] MEDS: ATORVASTATIN 20 MG TABLET GT SCH (20:46)
[2022-09-10] MEDS: MULTIVIT, IRON, MIN NO. 8, FA TABLET GT SCH (20:47)
[2022-09-10] MEDS: NUTRISOURCE FIBER 4 GM PACKET GT SCH (20:47)
[2022-09-11] VITALS (9 sets, daily range): TEMP 97.6–97.8; O2SAT 98–99
[2022-09-11] MEDS: ALBUTEROL SULFATE 2.5 MG/3 ML NEBU NEB SCH ×4 (01:48→19:20)
[2022-09-11] MEDS: BACLOFEN 20 MG TABLET GT SCH ×3 (05:27→21:15)
[2022-09-11] MEDS: OMEPRAZOLE 20 MG CAPSULE.DR GT SCH ×2 (05:27→17:09)
[2022-09-11] MEDS: HYDROGEN PEROXIDE 3% 118 ML BOTTLE TP SCH ×2 (07:14→19:20)
[2022-09-11] MEDS: METOPROLOL TARTRATE 25 MG TABLET GT SCH ×2 (09:00→21:14)
[2022-09-11] MEDS: LOSARTAN POTASSIUM 25 MG TABLET GT SCH (09:20)
[2022-09-11] MEDS: ACIDOPHILUS/BULGARICUS CHEW TAB GT SCH ×2 (09:20→21:14)
[2022-09-11] MEDS: ASPIRIN 81 MG TAB.CHEW GT SCH (09:20)
[2022-09-11] MEDS: VITAMINS A AND D OINT 42 GM TUBE TP SCH ×2 (09:21→21:15)
[2022-09-11] MEDS: CLOPIDOGREL 75 MG TABLET GT SCH (09:21)
[2022-09-11] MEDS: SODIUM CHLORIDE 1,000 MG TABLET GT SCH ×3 (09:21→17:09)
[2022-09-11] MEDS: REMEDY ESSENTIAL ZINC PASTE 113 GM TP SCH ×2 (09:21→21:14)
[2022-09-11] MEDS: VITAL 1.5 CAL LIQUID GT PRN (17:46)
[2022-09-11] MEDS: ATORVASTATIN 20 MG TABLET GT SCH (21:14)
[2022-09-11] MEDS: NUTRISOURCE FIBER 4 GM PACKET GT SCH (21:14)
[2022-09-12] VITALS (9 sets, daily range): TEMP 98; O2SAT 98–99
[2022-09-12] MEDS: ALBUTEROL SULFATE 2.5 MG/3 ML NEBU NEB SCH ×4 (01:40→19:16)
[2022-09-12] MEDS: BACLOFEN 20 MG TABLET GT SCH ×3 (05:03→21:03)
[2022-09-12] MEDS: OMEPRAZOLE 20 MG CAPSULE.DR GT SCH ×2 (05:03→17:32)
[2022-09-12] MEDS: HYDROGEN PEROXIDE 3% 118 ML BOTTLE TP SCH ×2 (07:41→19:16)
[2022-09-12] MEDS: ASPIRIN 81 MG TAB.CHEW GT SCH (08:38)
[2022-09-12] MEDS: ACIDOPHILUS/BULGARICUS CHEW TAB GT SCH ×2 (08:41→20:44)
[2022-09-12] MEDS: LOSARTAN POTASSIUM 25 MG TABLET GT SCH (08:41)
[2022-09-12] MEDS: VITAMINS A AND D OINT 42 GM TUBE TP SCH ×2 (08:43→20:45)
[2022-09-12] MEDS: REMEDY ESSENTIAL ZINC PASTE 113 GM TP SCH ×2 (08:43→20:45)
[2022-09-12] MEDS: SODIUM CHLORIDE 1,000 MG TABLET GT SCH ×3 (08:43→17:32)
[2022-09-12] MEDS: METOPROLOL TARTRATE 25 MG TABLET GT SCH ×2 (08:43→20:44)
[2022-09-12] MEDS: CLOPIDOGREL 75 MG TABLET GT SCH (08:43)
[2022-09-12] MEDS: VITAL 1.5 CAL LIQUID GT PRN (16:44)
[2022-09-12] MEDS: NUTRISOURCE FIBER 4 GM PACKET GT SCH (20:44)
[2022-09-12] MEDS: ATORVASTATIN 20 MG TABLET GT SCH (20:44)
[2022-09-12] MEDS: MULTIVIT, IRON, MIN NO. 8, FA TABLET GT SCH (20:44)
[2022-09-13] VITALS (9 sets, daily range): TEMP 98.3–99; O2SAT 97–99
[2022-09-13] MEDS: ALBUTEROL SULFATE 2.5 MG/3 ML NEBU NEB SCH ×4 (01:08→19:40)
[2022-09-13] MEDS: BACLOFEN 20 MG TABLET GT SCH ×3 (05:03→22:02)
[2022-09-13] MEDS: OMEPRAZOLE 20 MG CAPSULE.DR GT SCH ×2 (05:03→17:54)
[2022-09-13 07:28] LABS: BASOPHILS % (AUTO) 0.9 % (0.0-2.0); EOSINOPHILS # (AUTO) 0.4 K/uL (0.0-0.7); EOSINOPHILS % (AUTO) 8.5 % (0.0-7.0); HEMATOCRIT 35.2 % (36.7-47.1); HEMOGLOBIN 11.9 g/dL (12.5-16.3); LYMPHOCYTES # (AUTO) 1.2 K/uL (0.8-4.8); LYMPHOCYTES % (AUTO) 22.5 % (20.5-51.5); MEAN CORPUSCULAR HEMOGLOBIN 31.7 uug (23.8-33.4); MEAN CORPUSCULAR HGB CONC 34 g/dL (32.5-36.3); MEAN CORPUSCULAR VOLUME 93.9 fL (73.0-96.2); MONOCYTES # (AUTO) 0.4 K/uL (0.1-1.30); MONOCYTES % (AUTO) 6.9 % (0.0-11.0); NEUTROPHILS # (AUTO) 3.2 K/uL (1.8-8.9); NEUTROPHILS % (AUTO) 61.2 % (38.5-71.5); PLATELET COUNT (AUTO) 276 K/uL (152-348); RED BLOOD CELL COUNT(AUTO) 3.75 MIL/uL (4.06-5.63); RED CELL DISTRIBUTION WIDTH 13.7 % (12.1-16.2); WHITE BLOOD COUNT (AUTO) 5.2 K/uL (3.6-10.2)
[2022-09-13 07:38] LABS: CALCIUM 8.5 mg/dL (8.5-10.1); CARBON DIOXIDE 29 mmol/L (21-32); CHLORIDE 103 mmol/L (98-107); CREATININE 0.6 mg/dL (0.6-1.3); GLUCOSE 87 mg/dL (74-106); POTASSIUM 4.1 mmol/L (3.5-5.1); SODIUM SERUM 139 mmol/L (136-145); UREA NITROGEN, BLOOD 20 mg/dL (7-18)
[2022-09-13 08:49] LABS: DIFFERENTIAL COMMENT 1
[2022-09-13] MEDS: HYDROGEN PEROXIDE 3% 118 ML BOTTLE TP SCH ×2 (09:22→21:11)
[2022-09-13] MEDS: ASPIRIN 81 MG TAB.CHEW GT SCH (09:36)
[2022-09-13] MEDS: ACIDOPHILUS/BULGARICUS CHEW TAB GT SCH ×2 (09:37→20:21)
[2022-09-13] MEDS: LOSARTAN POTASSIUM 25 MG TABLET GT SCH (09:37)
[2022-09-13] MEDS: REMEDY ESSENTIAL ZINC PASTE 113 GM TP SCH ×2 (09:38→20:22)
[2022-09-13] MEDS: CLOPIDOGREL 75 MG TABLET GT SCH (09:38)
[2022-09-13] MEDS: VITAMINS A AND D OINT 42 GM TUBE TP SCH ×2 (09:38→20:22)
[2022-09-13] MEDS: METOPROLOL TARTRATE 25 MG TABLET GT SCH ×2 (09:38→20:21)
[2022-09-13] MEDS: SODIUM CHLORIDE 1,000 MG TABLET GT SCH ×4 (09:38→17:54)
[2022-09-13] MEDS: ATORVASTATIN 20 MG TABLET GT SCH (20:21)
[2022-09-13] MEDS: NUTRISOURCE FIBER 4 GM PACKET GT SCH (20:22)
[2022-09-13] MEDS: VITAL 1.5 CAL LIQUID GT PRN (20:32)
[2022-09-14] VITALS (10 sets, daily range): TEMP 97.6–98.6; O2SAT 96–99
[2022-09-14] MEDS: ALBUTEROL SULFATE 2.5 MG/3 ML NEBU NEB SCH ×4 (01:21→20:10)
[2022-09-14] MEDS: OMEPRAZOLE 20 MG CAPSULE.DR GT SCH ×2 (05:46→17:26)
[2022-09-14] MEDS: BACLOFEN 20 MG TABLET GT SCH ×3 (05:46→22:42)
[2022-09-14] MEDS: HYDROGEN PEROXIDE 3% 118 ML BOTTLE TP SCH ×2 (07:22→21:09)
[2022-09-14] MEDS: ASPIRIN 81 MG TAB.CHEW GT SCH (08:21)
[2022-09-14] MEDS: LOSARTAN POTASSIUM 25 MG TABLET GT SCH (08:21)
[2022-09-14] MEDS: METOPROLOL TARTRATE 25 MG TABLET GT SCH ×2 (08:22→20:06)
[2022-09-14] MEDS: ACIDOPHILUS/BULGARICUS CHEW TAB GT SCH ×2 (08:22→20:06)
[2022-09-14] MEDS: REMEDY ESSENTIAL ZINC PASTE 113 GM TP SCH ×2 (08:22→20:07)
[2022-09-14] MEDS: SODIUM CHLORIDE 1,000 MG TABLET GT SCH ×3 (08:22→16:33)
[2022-09-14] MEDS: CLOPIDOGREL 75 MG TABLET GT SCH (08:22)
[2022-09-14] MEDS: VITAMINS A AND D OINT 42 GM TUBE TP SCH ×2 (08:22→20:07)
[2022-09-14] MEDS: diphenhydrAMINE 25 MG/10 ML UDC GT PRN (16:34)
[2022-09-14] MEDS: VITAL 1.5 CAL LIQUID GT PRN (16:34)
[2022-09-14] MEDS: ATORVASTATIN 20 MG TABLET GT SCH (20:06)
[2022-09-14] MEDS: NUTRISOURCE FIBER 4 GM PACKET GT SCH (20:07)
[2022-09-14] MEDS: MULTIVIT, IRON, MIN NO. 8, FA TABLET GT SCH (20:07)
[2022-09-15] VITALS (10 sets, daily range): TEMP 97.6–98.2; O2SAT 98–99
[2022-09-15] MEDS: ALBUTEROL SULFATE 2.5 MG/3 ML NEBU NEB SCH ×4 (01:23→19:09)
[2022-09-15] MEDS: diphenhydrAMINE 25 MG/10 ML UDC GT PRN (02:00)
[2022-09-15] MEDS: OMEPRAZOLE 20 MG CAPSULE.DR GT SCH ×2 (06:12→17:41)
[2022-09-15] MEDS: BACLOFEN 20 MG TABLET GT SCH ×3 (06:12→22:00)
[2022-09-15] MEDS: HYDROGEN PEROXIDE 3% 118 ML BOTTLE TP SCH ×2 (07:41→19:09)
[2022-09-15] MEDS: SODIUM CHLORIDE 1,000 MG TABLET GT SCH ×3 (09:00→17:40)
[2022-09-15] MEDS: METOPROLOL TARTRATE 25 MG TABLET GT SCH ×2 (09:00→20:34)
[2022-09-15] MEDS: LOSARTAN POTASSIUM 25 MG TABLET GT SCH (09:00)
[2022-09-15] MEDS: CLOPIDOGREL 75 MG TABLET GT SCH (09:00)
[2022-09-15] MEDS: VITAMINS A AND D OINT 42 GM TUBE TP SCH ×2 (09:00→20:34)
[2022-09-15] MEDS: ASPIRIN 81 MG TAB.CHEW GT SCH (09:00)
[2022-09-15] MEDS: REMEDY ESSENTIAL ZINC PASTE 113 GM TP SCH ×2 (09:00→20:33)
[2022-09-15] MEDS: ACIDOPHILUS/BULGARICUS CHEW TAB GT SCH ×2 (09:00→20:30)
[2022-09-15] MEDS: VITAL 1.5 CAL LIQUID GT PRN (18:15)
[2022-09-15] MEDS: NUTRISOURCE FIBER 4 GM PACKET GT SCH (20:31)
[2022-09-15] MEDS: ATORVASTATIN 20 MG TABLET GT SCH (20:31)
[2022-09-16] VITALS (10 sets, daily range): TEMP 97.5–98.4; O2SAT 98–99
[2022-09-16] MEDS: ALBUTEROL SULFATE 2.5 MG/3 ML NEBU NEB SCH ×4 (01:51→19:11)
[2022-09-16] MEDS: BACLOFEN 20 MG TABLET GT SCH ×3 (06:33→21:05)
[2022-09-16] MEDS: OMEPRAZOLE 20 MG CAPSULE.DR GT SCH ×2 (06:33→17:19)
[2022-09-16] MEDS: HYDROGEN PEROXIDE 3% 118 ML BOTTLE TP SCH ×2 (08:03→21:21)
[2022-09-16] MEDS: REMEDY ESSENTIAL ZINC PASTE 113 GM TP SCH ×2 (08:34→20:43)
[2022-09-16] MEDS: VITAMINS A AND D OINT 42 GM TUBE TP SCH ×2 (08:34→20:44)
[2022-09-16] MEDS: SODIUM CHLORIDE 1,000 MG TABLET GT SCH ×3 (08:44→16:23)
[2022-09-16] MEDS: ASPIRIN 81 MG TAB.CHEW GT SCH (08:45)
[2022-09-16] MEDS: CLOPIDOGREL 75 MG TABLET GT SCH (08:45)
[2022-09-16] MEDS: ACIDOPHILUS/BULGARICUS CHEW TAB GT SCH ×2 (08:45→20:42)
[2022-09-16] MEDS: LOSARTAN POTASSIUM 25 MG TABLET GT SCH (08:45)
[2022-09-16] MEDS: METOPROLOL TARTRATE 25 MG TABLET GT SCH ×2 (08:46→20:42)
[2022-09-16] MEDS: VITAL 1.5 CAL LIQUID GT PRN (16:36)
[2022-09-16] MEDS: ATORVASTATIN 20 MG TABLET GT SCH (20:42)
[2022-09-16] MEDS: NUTRISOURCE FIBER 4 GM PACKET GT SCH (20:42)
[2022-09-16] MEDS: MULTIVIT, IRON, MIN NO. 8, FA TABLET GT SCH (20:42)
[2022-09-17] VITALS (10 sets, daily range): TEMP 97.5–97.8; O2SAT 96–99
[2022-09-17] MEDS: ALBUTEROL SULFATE 2.5 MG/3 ML NEBU NEB SCH ×4 (01:30→19:04)
[2022-09-17] MEDS: BACLOFEN 20 MG TABLET GT SCH ×3 (05:55→21:22)
[2022-09-17] MEDS: OMEPRAZOLE 20 MG CAPSULE.DR GT SCH ×2 (05:55→17:01)
[2022-09-17] MEDS: HYDROGEN PEROXIDE 3% 118 ML BOTTLE TP SCH ×2 (08:26→20:58)
[2022-09-17] MEDS: LOSARTAN POTASSIUM 25 MG TABLET GT SCH (09:10)
[2022-09-17] MEDS: ACIDOPHILUS/BULGARICUS CHEW TAB GT SCH ×2 (09:10→21:21)
[2022-09-17] MEDS: ASPIRIN 81 MG TAB.CHEW GT SCH (09:10)
[2022-09-17] MEDS: REMEDY ESSENTIAL ZINC PASTE 113 GM TP SCH ×2 (09:11→21:22)
[2022-09-17] MEDS: VITAMINS A AND D OINT 42 GM TUBE TP SCH ×2 (09:11→21:22)
[2022-09-17] MEDS: METOPROLOL TARTRATE 25 MG TABLET GT SCH ×2 (09:11→21:22)
[2022-09-17] MEDS: CLOPIDOGREL 75 MG TABLET GT SCH (09:11)
[2022-09-17] MEDS: SODIUM CHLORIDE 1,000 MG TABLET GT SCH ×3 (09:11→16:54)
[2022-09-17] MEDS: VITAL 1.5 CAL LIQUID GT PRN (17:01)
[2022-09-17] MEDS: ATORVASTATIN 20 MG TABLET GT SCH (21:21)
[2022-09-17] MEDS: NUTRISOURCE FIBER 4 GM PACKET GT SCH (21:22)
[2022-09-18] VITALS (11 sets, daily range): TEMP 97.8; O2SAT 97–99
[2022-09-18] MEDS: ALBUTEROL SULFATE 2.5 MG/3 ML NEBU NEB SCH ×4 (01:10→20:55)
[2022-09-18] MEDS: diphenhydrAMINE 25 MG/10 ML UDC GT PRN ×2 (06:00→21:56)
[2022-09-18] MEDS: BACLOFEN 20 MG TABLET GT SCH ×3 (06:10→21:57)
[2022-09-18] MEDS: OMEPRAZOLE 20 MG CAPSULE.DR GT SCH ×2 (06:10→17:24)
[2022-09-18] MEDS: HYDROGEN PEROXIDE 3% 118 ML BOTTLE TP SCH ×2 (07:50→21:56)
[2022-09-18] MEDS: ASPIRIN 81 MG TAB.CHEW GT SCH (08:32)
[2022-09-18] MEDS: LOSARTAN POTASSIUM 25 MG TABLET GT SCH (08:32)
[2022-09-18] MEDS: CLOPIDOGREL 75 MG TABLET GT SCH (08:33)
[2022-09-18] MEDS: ACIDOPHILUS/BULGARICUS CHEW TAB GT SCH ×2 (08:33→21:55)
[2022-09-18] MEDS: SODIUM CHLORIDE 1,000 MG TABLET GT SCH ×3 (08:33→17:24)
[2022-09-18] MEDS: METOPROLOL TARTRATE 25 MG TABLET GT SCH ×2 (08:33→21:55)
[2022-09-18] MEDS: VITAMINS A AND D OINT 42 GM TUBE TP SCH ×2 (08:34→21:56)
[2022-09-18] MEDS: REMEDY ESSENTIAL ZINC PASTE 113 GM TP SCH ×2 (08:34→21:56)
[2022-09-18] MEDS: VITAL 1.5 CAL LIQUID GT PRN (14:47)
[2022-09-18] MEDS: NUTRISOURCE FIBER 4 GM PACKET GT SCH (21:55)
[2022-09-18] MEDS: ATORVASTATIN 20 MG TABLET GT SCH (21:55)
[2022-09-18] MEDS: MULTIVIT, IRON, MIN NO. 8, FA TABLET GT SCH (21:56)
[2022-09-19] VITALS (12 sets, daily range): TEMP 98.8–99; O2SAT 98–99
[2022-09-19] MEDS: ALBUTEROL SULFATE 2.5 MG/3 ML NEBU NEB SCH ×4 (03:59→19:29)
[2022-09-19] MEDS: BACLOFEN 20 MG TABLET GT SCH ×3 (05:20→22:53)
[2022-09-19] MEDS: OMEPRAZOLE 20 MG CAPSULE.DR GT SCH ×2 (05:20→17:01)
[2022-09-19] MEDS: HYDROGEN PEROXIDE 3% 118 ML BOTTLE TP SCH ×2 (07:43→20:57)
[2022-09-19] MEDS: METOPROLOL TARTRATE 25 MG TABLET GT SCH ×2 (09:00→21:00)
[2022-09-19] MEDS: LOSARTAN POTASSIUM 25 MG TABLET GT SCH (09:00)
[2022-09-19] MEDS: ACIDOPHILUS/BULGARICUS CHEW TAB GT SCH ×2 (09:07→21:00)
[2022-09-19] MEDS: REMEDY ESSENTIAL ZINC PASTE 113 GM TP SCH ×2 (09:13→21:00)
[2022-09-19] MEDS: VITAMINS A AND D OINT 42 GM TUBE TP SCH ×2 (09:13→21:00)
[2022-09-19] MEDS: ASPIRIN 81 MG TAB.CHEW GT SCH (09:20)
[2022-09-19] MEDS: SODIUM CHLORIDE 1,000 MG TABLET GT SCH ×3 (09:21→17:03)
[2022-09-19] MEDS: CLOPIDOGREL 75 MG TABLET GT SCH (09:22)
[2022-09-19] MEDS: diphenhydrAMINE 25 MG/10 ML UDC GT PRN (14:32)
[2022-09-19] MEDS: VITAL 1.5 CAL LIQUID GT PRN (14:33)
[2022-09-19] MEDS: NUTRISOURCE FIBER 4 GM PACKET GT SCH (21:00)
[2022-09-19] MEDS: ATORVASTATIN 20 MG TABLET GT SCH (21:00)
[2022-09-20] VITALS (10 sets, daily range): TEMP 97.6–98.4; O2SAT 98–99
[2022-09-20] MEDS: ALBUTEROL SULFATE 2.5 MG/3 ML NEBU NEB SCH ×4 (01:00→19:05)
[2022-09-20] MEDS: BACLOFEN 20 MG TABLET GT SCH ×3 (05:16→21:55)
[2022-09-20] MEDS: OMEPRAZOLE 20 MG CAPSULE.DR GT SCH ×2 (05:16→17:09)
[2022-09-20] MEDS: ACIDOPHILUS/BULGARICUS CHEW TAB GT SCH ×2 (08:23→21:54)
[2022-09-20] MEDS: ASPIRIN 81 MG TAB.CHEW GT SCH (08:23)
[2022-09-20] MEDS: LOSARTAN POTASSIUM 25 MG TABLET GT SCH (08:23)
[2022-09-20] MEDS: VITAMINS A AND D OINT 42 GM TUBE TP SCH ×2 (08:24→21:55)
[2022-09-20] MEDS: METOPROLOL TARTRATE 25 MG TABLET GT SCH ×2 (08:24→21:55)
[2022-09-20] MEDS: SODIUM CHLORIDE 1,000 MG TABLET GT SCH ×3 (08:24→16:57)
[2022-09-20] MEDS: CLOPIDOGREL 75 MG TABLET GT SCH (08:24)
[2022-09-20] MEDS: REMEDY ESSENTIAL ZINC PASTE 113 GM TP SCH ×2 (08:24→21:55)
[2022-09-20] MEDS: HYDROGEN PEROXIDE 3% 118 ML BOTTLE TP SCH ×2 (09:50→19:05)
[2022-09-20] MEDS: VITAL 1.5 CAL LIQUID GT PRN (11:42)
[2022-09-20] MEDS: diphenhydrAMINE 25 MG/10 ML UDC GT PRN (16:58)
[2022-09-20] MEDS: ATORVASTATIN 20 MG TABLET GT SCH (21:54)
[2022-09-20] MEDS: MULTIVIT, IRON, MIN NO. 8, FA TABLET GT SCH (21:55)
[2022-09-20] MEDS: NUTRISOURCE FIBER 4 GM PACKET GT SCH (21:55)
[2022-09-21] VITALS (10 sets, daily range): TEMP 97.6–98.4; O2SAT 96–99
[2022-09-21] MEDS: ALBUTEROL SULFATE 2.5 MG/3 ML NEBU NEB SCH ×4 (02:19→19:35)
[2022-09-21] MEDS: VITAL 1.5 CAL LIQUID GT PRN (03:52)
[2022-09-21] MEDS: diphenhydrAMINE 25 MG/10 ML UDC GT PRN (04:00)
[2022-09-21] MEDS: OMEPRAZOLE 20 MG CAPSULE.DR GT SCH ×2 (05:23→17:15)
[2022-09-21] MEDS: BACLOFEN 20 MG TABLET GT SCH ×3 (05:23→21:59)
[2022-09-21] MEDS: HYDROGEN PEROXIDE 3% 118 ML BOTTLE TP SCH ×2 (09:00→20:48)
[2022-09-21] MEDS: ASPIRIN 81 MG TAB.CHEW GT SCH (09:11)
[2022-09-21] MEDS: ACIDOPHILUS/BULGARICUS CHEW TAB GT SCH ×2 (09:11→20:54)
[2022-09-21] MEDS: LOSARTAN POTASSIUM 25 MG TABLET GT SCH (09:11)
[2022-09-21] MEDS: REMEDY ESSENTIAL ZINC PASTE 113 GM TP SCH ×2 (09:12→20:55)
[2022-09-21] MEDS: VITAMINS A AND D OINT 42 GM TUBE TP SCH ×2 (09:12→20:55)
[2022-09-21] MEDS: SODIUM CHLORIDE 1,000 MG TABLET GT SCH ×3 (09:12→17:15)
[2022-09-21] MEDS: METOPROLOL TARTRATE 25 MG TABLET GT SCH ×2 (09:12→20:55)
[2022-09-21] MEDS: CLOPIDOGREL 75 MG TABLET GT SCH (09:12)
[2022-09-21] MEDS: ATORVASTATIN 20 MG TABLET GT SCH (20:54)
[2022-09-21] MEDS: NUTRISOURCE FIBER 4 GM PACKET GT SCH (20:55)
[2022-09-22] VITALS (10 sets, daily range): TEMP 97.8; O2SAT 96–99
[2022-09-22] MEDS: ALBUTEROL SULFATE 2.5 MG/3 ML NEBU NEB SCH ×4 (01:40→19:25)
[2022-09-22] MEDS: VITAL 1.5 CAL LIQUID GT PRN (02:39)
[2022-09-22] MEDS: BACLOFEN 20 MG TABLET GT SCH ×3 (05:25→22:55)
[2022-09-22] MEDS: OMEPRAZOLE 20 MG CAPSULE.DR GT SCH ×2 (05:25→17:33)
[2022-09-22] MEDS ORDERED: VITAL AF 1.5 1,000 ML LIQUID GT PRN (06:15)
[2022-09-22] MEDS: HYDROGEN PEROXIDE 3% 118 ML BOTTLE TP SCH ×2 (08:06→22:33)
[2022-09-22] MEDS: REMEDY ESSENTIAL ZINC PASTE 113 GM TP SCH ×2 (09:32→20:35)
[2022-09-22] MEDS: ASPIRIN 81 MG TAB.CHEW GT SCH (09:32)
[2022-09-22] MEDS: ACIDOPHILUS/BULGARICUS CHEW TAB GT SCH ×2 (09:32→20:33)
[2022-09-22] MEDS: LOSARTAN POTASSIUM 25 MG TABLET GT SCH (09:33)
[2022-09-22] MEDS: CLOPIDOGREL 75 MG TABLET GT SCH (09:36)
[2022-09-22] MEDS: METOPROLOL TARTRATE 25 MG TABLET GT SCH ×2 (09:36→20:34)
[2022-09-22] MEDS: SODIUM CHLORIDE 1,000 MG TABLET GT SCH ×3 (09:36→17:33)
[2022-09-22] MEDS: VITAMINS A AND D OINT 42 GM TUBE TP SCH ×2 (09:36→20:35)
[2022-09-22] MEDS: ATORVASTATIN 20 MG TABLET GT SCH (20:34)
[2022-09-22] MEDS: NUTRISOURCE FIBER 4 GM PACKET GT SCH (20:34)
[2022-09-22] MEDS: MULTIVIT, IRON, MIN NO. 8, FA TABLET GT SCH (20:35)
[2022-09-23] VITALS (11 sets, daily range): TEMP 97.8; O2SAT 97–99
[2022-09-23] MEDS: VITAL AF 1.2 1,000 ML LIQUID GT PRN (01:17)
[2022-09-23] MEDS: diphenhydrAMINE 25 MG/10 ML UDC GT PRN ×2 (02:34→13:36)
[2022-09-23] MEDS: ALBUTEROL SULFATE 2.5 MG/3 ML NEBU NEB SCH ×4 (03:02→19:17)
[2022-09-23] MEDS: OMEPRAZOLE 20 MG CAPSULE.DR GT SCH ×2 (05:11→17:15)
[2022-09-23] MEDS: BACLOFEN 20 MG TABLET GT SCH ×3 (05:11→22:05)
[2022-09-23] MEDS: HYDROGEN PEROXIDE 3% 118 ML BOTTLE TP SCH ×2 (08:15→19:17)
[2022-09-23] MEDS: METOPROLOL TARTRATE 25 MG TABLET GT SCH ×2 (08:45→21:00)
[2022-09-23] MEDS: ASPIRIN 81 MG TAB.CHEW GT SCH (09:40)
[2022-09-23] MEDS: LOSARTAN POTASSIUM 25 MG TABLET GT SCH (09:40)
[2022-09-23] MEDS: SODIUM CHLORIDE 1,000 MG TABLET GT SCH ×3 (09:40→17:14)
[2022-09-23] MEDS: ACIDOPHILUS/BULGARICUS CHEW TAB GT SCH ×2 (09:40→21:00)
[2022-09-23] MEDS: VITAMINS A AND D OINT 42 GM TUBE TP SCH ×2 (09:41→21:00)
[2022-09-23] MEDS: REMEDY ESSENTIAL ZINC PASTE 113 GM TP SCH ×2 (09:41→21:00)
[2022-09-23] MEDS: CLOPIDOGREL 75 MG TABLET GT SCH (09:41)
[2022-09-23] MEDS: NUTRISOURCE FIBER 4 GM PACKET GT SCH (21:00)
[2022-09-23] MEDS: ATORVASTATIN 20 MG TABLET GT SCH (21:00)
[2022-09-24] VITALS (9 sets, daily range): TEMP 97–98.5; O2SAT 97–100
[2022-09-24] MEDS: ALBUTEROL SULFATE 2.5 MG/3 ML NEBU NEB SCH ×5 (01:05→19:25)
[2022-09-24] MEDS: VITAL AF 1.2 1,000 ML LIQUID GT PRN (01:40)
[2022-09-24] MEDS: OMEPRAZOLE 20 MG CAPSULE.DR GT SCH ×2 (05:51→17:12)
[2022-09-24] MEDS: BACLOFEN 20 MG TABLET GT SCH ×3 (05:51→21:57)
[2022-09-24] MEDS: HYDROGEN PEROXIDE 3% 118 ML BOTTLE TP SCH ×3 (07:03→19:25)
[2022-09-24] MEDS: ASPIRIN 81 MG TAB.CHEW GT SCH (09:14)
[2022-09-24] MEDS: LOSARTAN POTASSIUM 25 MG TABLET GT SCH (09:15)
[2022-09-24] MEDS: ACIDOPHILUS/BULGARICUS CHEW TAB GT SCH ×2 (09:15→21:56)
[2022-09-24] MEDS: METOPROLOL TARTRATE 25 MG TABLET GT SCH ×2 (09:15→21:00)
[2022-09-24] MEDS: VITAMINS A AND D OINT 42 GM TUBE TP SCH ×2 (09:16→21:57)
[2022-09-24] MEDS: SODIUM CHLORIDE 1,000 MG TABLET GT SCH ×3 (09:16→17:12)
[2022-09-24] MEDS: REMEDY ESSENTIAL ZINC PASTE 113 GM TP SCH ×2 (09:16→21:57)
[2022-09-24] MEDS: CLOPIDOGREL 75 MG TABLET GT SCH (09:16)
[2022-09-24] MEDS: ATORVASTATIN 20 MG TABLET GT SCH (21:57)
[2022-09-24] MEDS: NUTRISOURCE FIBER 4 GM PACKET GT SCH (21:57)
[2022-09-24] MEDS: MULTIVIT, IRON, MIN NO. 8, FA TABLET GT SCH (21:57)
[2022-09-25] VITALS (11 sets, daily range): TEMP 97.7–98.2; O2SAT 98–100
[2022-09-25] MEDS: VITAL AF 1.2 1,000 ML LIQUID GT PRN (01:00)
[2022-09-25] MEDS: ALBUTEROL SULFATE 2.5 MG/3 ML NEBU NEB SCH ×4 (01:33→19:20)
[2022-09-25] MEDS: BACLOFEN 20 MG TABLET GT SCH ×3 (05:27→22:40)
[2022-09-25] MEDS: OMEPRAZOLE 20 MG CAPSULE.DR GT SCH ×2 (05:27→17:36)
[2022-09-25] MEDS: ASPIRIN 81 MG TAB.CHEW GT SCH (09:19)
[2022-09-25] MEDS: SODIUM CHLORIDE 1,000 MG TABLET GT SCH ×3 (09:20→17:36)
[2022-09-25] MEDS: LOSARTAN POTASSIUM 25 MG TABLET GT SCH (09:20)
[2022-09-25] MEDS: METOPROLOL TARTRATE 25 MG TABLET GT SCH ×2 (09:20→21:00)
[2022-09-25] MEDS: REMEDY ESSENTIAL ZINC PASTE 113 GM TP SCH ×2 (09:20→21:00)
[2022-09-25] MEDS: ACIDOPHILUS/BULGARICUS CHEW TAB GT SCH ×2 (09:20→21:00)
[2022-09-25] MEDS: CLOPIDOGREL 75 MG TABLET GT SCH (09:20)
[2022-09-25] MEDS: VITAMINS A AND D OINT 42 GM TUBE TP SCH ×2 (09:20→21:00)
[2022-09-25] MEDS: HYDROGEN PEROXIDE 3% 118 ML BOTTLE TP SCH ×2 (09:38→19:20)
[2022-09-25] MEDS: diphenhydrAMINE 25 MG/10 ML UDC GT PRN (12:40)
[2022-09-25] MEDS: ATORVASTATIN 20 MG TABLET GT SCH (21:00)
[2022-09-25] MEDS: NUTRISOURCE FIBER 4 GM PACKET GT SCH (21:00)
[2022-09-26] VITALS (11 sets, daily range): TEMP 97.4–97.6; O2SAT 97–100
[2022-09-26] MEDS: ALBUTEROL SULFATE 2.5 MG/3 ML NEBU NEB SCH ×4 (01:05→20:10)
[2022-09-26] MEDS: VITAL AF 1.2 1,000 ML LIQUID GT PRN (01:45)
[2022-09-26] MEDS: OMEPRAZOLE 20 MG CAPSULE.DR GT SCH ×2 (05:20→17:24)
[2022-09-26] MEDS: BACLOFEN 20 MG TABLET GT SCH ×3 (05:20→21:19)
[2022-09-26] MEDS: ASPIRIN 81 MG TAB.CHEW GT SCH (09:14)
[2022-09-26] MEDS: VITAMINS A AND D OINT 42 GM TUBE TP SCH ×2 (09:15→20:20)
[2022-09-26] MEDS: LOSARTAN POTASSIUM 25 MG TABLET GT SCH (09:15)
[2022-09-26] MEDS: ACIDOPHILUS/BULGARICUS CHEW TAB GT SCH ×2 (09:15→20:19)
[2022-09-26] MEDS: REMEDY ESSENTIAL ZINC PASTE 113 GM TP SCH ×2 (09:15→20:20)
[2022-09-26] MEDS: METOPROLOL TARTRATE 25 MG TABLET GT SCH ×2 (09:15→20:19)
[2022-09-26] MEDS: CLOPIDOGREL 75 MG TABLET GT SCH (09:15)
[2022-09-26] MEDS: SODIUM CHLORIDE 1,000 MG TABLET GT SCH ×3 (09:15→17:24)
[2022-09-26] MEDS: HYDROGEN PEROXIDE 3% 118 ML BOTTLE TP SCH ×2 (09:22→20:10)
[2022-09-26] MEDS: ACETAMINOPHEN 650 MG/20 ML UDC- SA PATIENTS-PAIN ONLY GT PRN (11:49)
[2022-09-26] MEDS: diphenhydrAMINE 25 MG/10 ML UDC GT PRN (11:49)
[2022-09-26] MEDS: NUTRISOURCE FIBER 4 GM PACKET GT SCH (20:19)
[2022-09-26] MEDS: ATORVASTATIN 20 MG TABLET GT SCH (20:19)
[2022-09-26] MEDS: MULTIVIT, IRON, MIN NO. 8, FA TABLET GT SCH (20:20)
[2022-09-27] VITALS (9 sets, daily range): BP systolic 122; BP diastolic 65; TEMP 97.4–98.2; O2SAT 96–99
[2022-09-27] MEDS: ALBUTEROL SULFATE 2.5 MG/3 ML NEBU NEB SCH ×4 (01:21→20:10)
[2022-09-27] MEDS: OMEPRAZOLE 20 MG CAPSULE.DR GT SCH ×2 (05:16→17:03)
[2022-09-27] MEDS: BACLOFEN 20 MG TABLET GT SCH ×3 (05:16→22:00)
[2022-09-27] MEDS: HYDROGEN PEROXIDE 3% 118 ML BOTTLE TP SCH ×2 (07:31→20:10)
[2022-09-27] MEDS: LOSARTAN POTASSIUM 25 MG TABLET GT SCH (09:39)
[2022-09-27] MEDS: ASPIRIN 81 MG TAB.CHEW GT SCH (09:39)
[2022-09-27] MEDS: METOPROLOL TARTRATE 25 MG TABLET GT SCH ×2 (09:40→21:00)
[2022-09-27] MEDS: ACIDOPHILUS/BULGARICUS CHEW TAB GT SCH ×2 (09:40→21:00)
[2022-09-27] MEDS: REMEDY ESSENTIAL ZINC PASTE 113 GM TP SCH ×2 (09:40→21:00)
[2022-09-27] MEDS: VITAMINS A AND D OINT 42 GM TUBE TP SCH ×2 (09:40→21:00)
[2022-09-27] MEDS: SODIUM CHLORIDE 1,000 MG TABLET GT SCH ×3 (09:40→17:03)
[2022-09-27] MEDS: CLOPIDOGREL 75 MG TABLET GT SCH (09:40)
[2022-09-27] MEDS: ATORVASTATIN 20 MG TABLET GT SCH (21:00)
[2022-09-27] MEDS: NUTRISOURCE FIBER 4 GM PACKET GT SCH (21:00)
[2022-09-28] VITALS (10 sets, daily range): TEMP 97.6–98.8; O2SAT 96–99
[2022-09-28] MEDS: ALBUTEROL SULFATE 2.5 MG/3 ML NEBU NEB SCH ×4 (01:21→19:30)
[2022-09-28] MEDS: diphenhydrAMINE 25 MG/10 ML UDC GT PRN ×2 (03:59→18:44)
[2022-09-28] MEDS: BACLOFEN 20 MG TABLET GT SCH ×3 (06:26→21:34)
[2022-09-28] MEDS: OMEPRAZOLE 20 MG CAPSULE.DR GT SCH ×2 (06:26→18:37)
[2022-09-28] MEDS: HYDROGEN PEROXIDE 3% 118 ML BOTTLE TP SCH ×2 (08:48→19:30)
[2022-09-28] MEDS: SODIUM CHLORIDE 1,000 MG TABLET GT SCH ×3 (09:00→18:37)
[2022-09-28] MEDS: CLOPIDOGREL 75 MG TABLET GT SCH (09:00)
[2022-09-28] MEDS: ACIDOPHILUS/BULGARICUS CHEW TAB GT SCH ×2 (09:00→20:18)
[2022-09-28] MEDS: LOSARTAN POTASSIUM 25 MG TABLET GT SCH (09:00)
[2022-09-28] MEDS: METOPROLOL TARTRATE 25 MG TABLET GT SCH ×2 (09:00→20:19)
[2022-09-28] MEDS: VITAMINS A AND D OINT 42 GM TUBE TP SCH ×2 (09:00→20:19)
[2022-09-28] MEDS: REMEDY ESSENTIAL ZINC PASTE 113 GM TP SCH ×2 (09:00→20:19)
[2022-09-28] MEDS: ASPIRIN 81 MG TAB.CHEW GT SCH (09:00)
[2022-09-28] MEDS: ATORVASTATIN 20 MG TABLET GT SCH (20:18)
[2022-09-28] MEDS: NUTRISOURCE FIBER 4 GM PACKET GT SCH (20:19)
[2022-09-28] MEDS: MULTIVIT, IRON, MIN NO. 8, FA TABLET GT SCH (20:19)
[2022-09-29] VITALS (11 sets, daily range): TEMP 97.5–98; O2SAT 97–100
[2022-09-29] MEDS: ALBUTEROL SULFATE 2.5 MG/3 ML NEBU NEB SCH ×4 (01:10→19:16)
[2022-09-29] MEDS: VITAL AF 1.2 1,000 ML LIQUID GT PRN (04:48)
[2022-09-29] MEDS: OMEPRAZOLE 20 MG CAPSULE.DR GT SCH ×2 (05:19→17:35)
[2022-09-29] MEDS: BACLOFEN 20 MG TABLET GT SCH ×3 (05:19→22:00)
[2022-09-29] MEDS: LOSARTAN POTASSIUM 25 MG TABLET GT SCH (09:00)
[2022-09-29] MEDS: HYDROGEN PEROXIDE 3% 118 ML BOTTLE TP SCH ×2 (09:00→19:16)
[2022-09-29] MEDS: ACIDOPHILUS/BULGARICUS CHEW TAB GT SCH ×2 (09:54→20:41)
[2022-09-29] MEDS: ASPIRIN 81 MG TAB.CHEW GT SCH (09:54)
[2022-09-29] MEDS: CLOPIDOGREL 75 MG TABLET GT SCH (09:55)
[2022-09-29] MEDS: VITAMINS A AND D OINT 42 GM TUBE TP SCH ×2 (09:55→20:42)
[2022-09-29] MEDS: SODIUM CHLORIDE 1,000 MG TABLET GT SCH ×3 (09:55→17:35)
[2022-09-29] MEDS: REMEDY ESSENTIAL ZINC PASTE 113 GM TP SCH ×2 (09:55→20:42)
[2022-09-29] MEDS: METOPROLOL TARTRATE 25 MG TABLET GT SCH ×2 (09:55→20:42)
[2022-09-29] MEDS: ATORVASTATIN 20 MG TABLET GT SCH (20:41)
[2022-09-29] MEDS: NUTRISOURCE FIBER 4 GM PACKET GT SCH (20:42)
[2022-09-30] VITALS (11 sets, daily range): TEMP 97.2–97.7; O2SAT 97–100
[2022-09-30] MEDS: ALBUTEROL SULFATE 2.5 MG/3 ML NEBU NEB SCH ×4 (01:40→19:21)
[2022-09-30] MEDS: VITAL AF 1.2 1,000 ML LIQUID GT PRN (04:37)
[2022-09-30] MEDS: BACLOFEN 20 MG TABLET GT SCH ×3 (05:46→22:16)
[2022-09-30] MEDS: OMEPRAZOLE 20 MG CAPSULE.DR GT SCH ×2 (05:46→17:08)
[2022-09-30] MEDS: LOSARTAN POTASSIUM 25 MG TABLET GT SCH (08:18)
[2022-09-30] MEDS: CLOPIDOGREL 75 MG TABLET GT SCH (08:18)
[2022-09-30] MEDS: ACIDOPHILUS/BULGARICUS CHEW TAB GT SCH ×2 (08:18→20:57)
[2022-09-30] MEDS: ASPIRIN 81 MG TAB.CHEW GT SCH (08:18)
[2022-09-30] MEDS: REMEDY ESSENTIAL ZINC PASTE 113 GM TP SCH ×2 (08:18→20:58)
[2022-09-30] MEDS: VITAMINS A AND D OINT 42 GM TUBE TP SCH ×2 (08:18→20:58)
[2022-09-30] MEDS: SODIUM CHLORIDE 1,000 MG TABLET GT SCH ×3 (08:18→17:08)
[2022-09-30] MEDS: METOPROLOL TARTRATE 25 MG TABLET GT SCH ×2 (08:18→20:58)
[2022-09-30] MEDS: HYDROGEN PEROXIDE 3% 118 ML BOTTLE TP SCH ×2 (09:00→19:21)
[2022-09-30] MEDS: ATORVASTATIN 20 MG TABLET GT SCH (20:57)
[2022-09-30] MEDS: MULTIVIT, IRON, MIN NO. 8, FA TABLET GT SCH (20:58)
[2022-09-30] MEDS: NUTRISOURCE FIBER 4 GM PACKET GT SCH (20:58)
[2022-10-01] VITALS (11 sets, daily range): TEMP 97.3–100.5; O2SAT 97–100
[2022-10-01] MEDS: ALBUTEROL SULFATE 2.5 MG/3 ML NEBU NEB SCH ×4 (01:36→20:01)
[2022-10-01] MEDS: OMEPRAZOLE 20 MG CAPSULE.DR GT SCH ×2 (06:07→17:28)
[2022-10-01] MEDS: BACLOFEN 20 MG TABLET GT SCH ×3 (06:07→22:00)
[2022-10-01] MEDS: ASPIRIN 81 MG TAB.CHEW GT SCH (08:24)
[2022-10-01] MEDS: ACIDOPHILUS/BULGARICUS CHEW TAB GT SCH ×2 (08:27→20:34)
[2022-10-01] MEDS: METOPROLOL TARTRATE 25 MG TABLET GT SCH ×2 (08:27→20:34)
[2022-10-01] MEDS: LOSARTAN POTASSIUM 25 MG TABLET GT SCH (08:27)
[2022-10-01] MEDS: VITAMINS A AND D OINT 42 GM TUBE TP SCH ×2 (08:28→20:34)
[2022-10-01] MEDS: REMEDY ESSENTIAL ZINC PASTE 113 GM TP SCH ×2 (08:28→20:34)
[2022-10-01] MEDS: SODIUM CHLORIDE 1,000 MG TABLET GT SCH ×3 (08:28→17:28)
[2022-10-01] MEDS: CLOPIDOGREL 75 MG TABLET GT SCH (08:28)
[2022-10-01] MEDS: HYDROGEN PEROXIDE 3% 118 ML BOTTLE TP SCH ×2 (09:26→20:01)
[2022-10-01] MEDS: NUTRISOURCE FIBER 4 GM PACKET GT SCH (20:34)
[2022-10-01] MEDS: ATORVASTATIN 20 MG TABLET GT SCH (20:34)
[2022-10-02] VITALS (10 sets, daily range): TEMP 97.5–97.6; O2SAT 97–100
[2022-10-02] MEDS: ALBUTEROL SULFATE 2.5 MG/3 ML NEBU NEB SCH ×4 (01:30→19:29)
[2022-10-02] MEDS: BACLOFEN 20 MG TABLET GT SCH ×3 (05:49→21:25)
[2022-10-02] MEDS: OMEPRAZOLE 20 MG CAPSULE.DR GT SCH ×2 (05:49→17:28)
[2022-10-02] MEDS: ASPIRIN 81 MG TAB.CHEW GT SCH (08:58)
[2022-10-02] MEDS: HYDROGEN PEROXIDE 3% 118 ML BOTTLE TP SCH ×2 (09:00→21:00)
[2022-10-02] MEDS: METOPROLOL TARTRATE 25 MG TABLET GT SCH ×2 (09:00→21:25)
[2022-10-02] MEDS: LOSARTAN POTASSIUM 25 MG TABLET GT SCH (09:00)
[2022-10-02] MEDS: ACIDOPHILUS/BULGARICUS CHEW TAB GT SCH ×2 (09:00→21:24)
[2022-10-02] MEDS: SODIUM CHLORIDE 1,000 MG TABLET GT SCH ×3 (09:01→17:28)
[2022-10-02] MEDS: CLOPIDOGREL 75 MG TABLET GT SCH (09:09)
[2022-10-02] MEDS: REMEDY ESSENTIAL ZINC PASTE 113 GM TP SCH ×2 (09:10→21:25)
[2022-10-02] MEDS: VITAMINS A AND D OINT 42 GM TUBE TP SCH ×2 (09:10→21:25)
[2022-10-02] MEDS: VITAL AF 1.2 1,000 ML LIQUID GT PRN (09:34)
[2022-10-02] MEDS: ATORVASTATIN 20 MG TABLET GT SCH (21:24)
[2022-10-02] MEDS: MULTIVIT, IRON, MIN NO. 8, FA TABLET GT SCH (21:25)
[2022-10-02] MEDS: NUTRISOURCE FIBER 4 GM PACKET GT SCH (21:25)
[2022-10-03] VITALS (11 sets, daily range): TEMP 97.4–98.5; O2SAT 97–100
[2022-10-03] MEDS: ALBUTEROL SULFATE 2.5 MG/3 ML NEBU NEB SCH ×4 (01:05→19:34)
[2022-10-03] MEDS: BACLOFEN 20 MG TABLET GT SCH ×3 (05:13→21:23)
[2022-10-03] MEDS: OMEPRAZOLE 20 MG CAPSULE.DR GT SCH ×2 (05:14→17:38)
[2022-10-03] MEDS: HYDROGEN PEROXIDE 3% 118 ML BOTTLE TP SCH ×2 (07:43→21:54)
[2022-10-03] MEDS: ASPIRIN 81 MG TAB.CHEW GT SCH (08:22)
[2022-10-03] MEDS: ACIDOPHILUS/BULGARICUS CHEW TAB GT SCH ×2 (08:23→21:22)
[2022-10-03] MEDS: REMEDY ESSENTIAL ZINC PASTE 113 GM TP SCH ×2 (08:24→21:23)
[2022-10-03] MEDS: VITAMINS A AND D OINT 42 GM TUBE TP SCH ×2 (08:24→21:23)
[2022-10-03] MEDS: CLOPIDOGREL 75 MG TABLET GT SCH (08:27)
[2022-10-03] MEDS: LOSARTAN POTASSIUM 25 MG TABLET GT SCH (08:29)
[2022-10-03] MEDS: METOPROLOL TARTRATE 25 MG TABLET GT SCH ×2 (08:31→21:23)
[2022-10-03] MEDS: SODIUM CHLORIDE 1,000 MG TABLET GT SCH ×3 (08:35→17:38)
[2022-10-03] MEDS: ATORVASTATIN 20 MG TABLET GT SCH (21:22)
[2022-10-03] MEDS: NUTRISOURCE FIBER 4 GM PACKET GT SCH (21:23)
[2022-10-04] VITALS (10 sets, daily range): TEMP 97.6–97.7; O2SAT 98–99
[2022-10-04] MEDS: ALBUTEROL SULFATE 2.5 MG/3 ML NEBU NEB SCH ×4 (01:40→19:13)
[2022-10-04] MEDS: OMEPRAZOLE 20 MG CAPSULE.DR GT SCH ×2 (05:45→17:49)
[2022-10-04] MEDS: BACLOFEN 20 MG TABLET GT SCH ×3 (05:45→21:46)
[2022-10-04] MEDS: HYDROGEN PEROXIDE 3% 118 ML BOTTLE TP SCH ×2 (08:03→21:09)
[2022-10-04] MEDS: ASPIRIN 81 MG TAB.CHEW GT SCH (08:12)
[2022-10-04] MEDS: LOSARTAN POTASSIUM 25 MG TABLET GT SCH (08:13)
[2022-10-04] MEDS: ACIDOPHILUS/BULGARICUS CHEW TAB GT SCH ×2 (08:13→20:51)
[2022-10-04] MEDS: METOPROLOL TARTRATE 25 MG TABLET GT SCH ×2 (08:14→20:52)
[2022-10-04] MEDS: REMEDY ESSENTIAL ZINC PASTE 113 GM TP SCH ×2 (08:15→20:52)
[2022-10-04] MEDS: VITAMINS A AND D OINT 42 GM TUBE TP SCH ×2 (08:15→20:52)
[2022-10-04] MEDS: CLOPIDOGREL 75 MG TABLET GT SCH (08:15)
[2022-10-04] MEDS: SODIUM CHLORIDE 1,000 MG TABLET GT SCH ×3 (08:15→17:11)
[2022-10-04] MEDS: ATORVASTATIN 20 MG TABLET GT SCH (20:51)
[2022-10-04] MEDS: NUTRISOURCE FIBER 4 GM PACKET GT SCH (20:52)
[2022-10-04] MEDS: MULTIVIT, IRON, MIN NO. 8, FA TABLET GT SCH (20:52)
[2022-10-05] VITALS (10 sets, daily range): TEMP 97.6; O2SAT 97–100
[2022-10-05] MEDS: ALBUTEROL SULFATE 2.5 MG/3 ML NEBU NEB SCH ×4 (02:14→19:20)
[2022-10-05] MEDS: OMEPRAZOLE 20 MG CAPSULE.DR GT SCH ×2 (05:23→17:11)
[2022-10-05] MEDS: BACLOFEN 20 MG TABLET GT SCH ×3 (05:23→22:23)
[2022-10-05] MEDS: METOPROLOL TARTRATE 25 MG TABLET GT SCH ×2 (09:00→20:36)
[2022-10-05] MEDS: ASPIRIN 81 MG TAB.CHEW GT SCH (09:16)
[2022-10-05] MEDS: ACIDOPHILUS/BULGARICUS CHEW TAB GT SCH ×2 (09:17→20:35)
[2022-10-05] MEDS: LOSARTAN POTASSIUM 25 MG TABLET GT SCH (09:17)
[2022-10-05] MEDS: HYDROGEN PEROXIDE 3% 118 ML BOTTLE TP SCH ×2 (09:17→19:20)
[2022-10-05] MEDS: SODIUM CHLORIDE 1,000 MG TABLET GT SCH ×3 (09:18→17:11)
[2022-10-05] MEDS: CLOPIDOGREL 75 MG TABLET GT SCH (09:18)
[2022-10-05] MEDS: VITAMINS A AND D OINT 42 GM TUBE TP SCH ×2 (09:19→20:36)
[2022-10-05] MEDS: REMEDY ESSENTIAL ZINC PASTE 113 GM TP SCH ×2 (09:19→20:36)
[2022-10-05] MEDS: VITAL AF 1.2 1,000 ML LIQUID GT PRN (14:37)
[2022-10-05] MEDS: ATORVASTATIN 20 MG TABLET GT SCH (20:35)
[2022-10-05] MEDS: NUTRISOURCE FIBER 4 GM PACKET GT SCH (20:36)
[2022-10-05] MEDS: diphenhydrAMINE 25 MG/10 ML UDC GT PRN (23:07)
[2022-10-06] VITALS (11 sets, daily range): TEMP 97.6–98; O2SAT 97–99
[2022-10-06] MEDS: ALBUTEROL SULFATE 2.5 MG/3 ML NEBU NEB SCH ×4 (01:10→19:24)
[2022-10-06] MEDS: OMEPRAZOLE 20 MG CAPSULE.DR GT SCH ×2 (05:18→17:15)
[2022-10-06] MEDS: BACLOFEN 20 MG TABLET GT SCH ×3 (05:18→22:31)
[2022-10-06] MEDS: HYDROGEN PEROXIDE 3% 118 ML BOTTLE TP SCH ×2 (08:05→21:22)
[2022-10-06] MEDS: LOSARTAN POTASSIUM 25 MG TABLET GT SCH (08:27)
[2022-10-06] MEDS: ACIDOPHILUS/BULGARICUS CHEW TAB GT SCH ×2 (08:27→20:23)
[2022-10-06] MEDS: METOPROLOL TARTRATE 25 MG TABLET GT SCH ×2 (08:27→20:53)
[2022-10-06] MEDS: ASPIRIN 81 MG TAB.CHEW GT SCH (08:27)
[2022-10-06] MEDS: CLOPIDOGREL 75 MG TABLET GT SCH (08:29)
[2022-10-06] MEDS: VITAMINS A AND D OINT 42 GM TUBE TP SCH ×2 (08:29→20:28)
[2022-10-06] MEDS: REMEDY ESSENTIAL ZINC PASTE 113 GM TP SCH ×2 (08:29→20:28)
[2022-10-06] MEDS: SODIUM CHLORIDE 1,000 MG TABLET GT SCH ×3 (08:29→17:15)
[2022-10-06] MEDS: ATORVASTATIN 20 MG TABLET GT SCH (20:23)
[2022-10-06] MEDS: NUTRISOURCE FIBER 4 GM PACKET GT SCH (20:25)
[2022-10-06] MEDS: MULTIVIT, IRON, MIN NO. 8, FA TABLET GT SCH (20:28)
[2022-10-07] VITALS (11 sets, daily range): BP systolic 167; BP diastolic 73; TEMP 97.4–98.3; O2SAT 97–99
[2022-10-07] MEDS: ALBUTEROL SULFATE 2.5 MG/3 ML NEBU NEB SCH ×4 (03:42→19:16)
[2022-10-07] MEDS: BACLOFEN 20 MG TABLET GT SCH ×3 (05:56→22:00)
[2022-10-07] MEDS: OMEPRAZOLE 20 MG CAPSULE.DR GT SCH ×2 (05:56→17:11)
[2022-10-07 06:43] LABS: BASOPHILS % (AUTO) 0.7 % (0.0-2.0); EOSINOPHILS # (AUTO) 0.5 K/uL (0.0-0.7); EOSINOPHILS % (AUTO) 7.8 % (0.0-7.0); HEMATOCRIT 36.1 % (36.7-47.1); HEMOGLOBIN 12.5 g/dL (12.5-16.3); LYMPHOCYTES # (AUTO) 1.3 K/uL (0.8-4.8); LYMPHOCYTES % (AUTO) 20.5 % (20.5-51.5); MEAN CORPUSCULAR HEMOGLOBIN 32.3 uug (23.8-33.4); MEAN CORPUSCULAR HGB CONC 35 g/dL (32.5-36.3); MEAN CORPUSCULAR VOLUME 92.9 fL (73.0-96.2); MONOCYTES # (AUTO) 0.4 K/uL (0.1-1.30); PLATELET COUNT (AUTO) 232 K/uL (152-348); RED BLOOD CELL COUNT(AUTO) 3.88 MIL/uL (4.06-5.63); RED CELL DISTRIBUTION WIDTH 13.5 % (12.1-16.2); WHITE BLOOD COUNT (AUTO) 6.1 K/uL (3.6-10.2)
[2022-10-07 07:07] LABS: CALCIUM 8.8 mg/dL (8.5-10.1); CARBON DIOXIDE 27 mmol/L (21-32); CHLORIDE 102 mmol/L (98-107); CREATININE 0.6 mg/dL (0.6-1.3); GLUCOSE 100 mg/dL (74-106); PHOSPHOROUS 3.3 mg/dL (2.5-4.9); POTASSIUM 3.9 mmol/L (3.5-5.1); SODIUM SERUM 136 mmol/L (136-145); UREA NITROGEN, BLOOD 23 mg/dL (7-18)
[2022-10-07 07:11] LABS: DIFFERENTIAL COMMENT 1
[2022-10-07] MEDS: HYDROGEN PEROXIDE 3% 118 ML BOTTLE TP SCH ×2 (07:41→19:16)
[2022-10-07] MEDS: ASPIRIN 81 MG TAB.CHEW GT SCH (08:14)
[2022-10-07] MEDS: LOSARTAN POTASSIUM 25 MG TABLET GT SCH (08:15)
[2022-10-07] MEDS: ACIDOPHILUS/BULGARICUS CHEW TAB GT SCH ×2 (08:16→20:38)
[2022-10-07] MEDS: METOPROLOL TARTRATE 25 MG TABLET GT SCH ×2 (08:17→20:40)
[2022-10-07] MEDS: SODIUM CHLORIDE 1,000 MG TABLET GT SCH ×3 (08:19→17:10)
[2022-10-07] MEDS: CLOPIDOGREL 75 MG TABLET GT SCH (08:19)
[2022-10-07] MEDS: REMEDY ESSENTIAL ZINC PASTE 113 GM TP SCH ×2 (08:20→20:40)
[2022-10-07] MEDS: VITAMINS A AND D OINT 42 GM TUBE TP SCH ×2 (08:20→20:40)
[2022-10-07] MEDS: VITAL AF 1.2 1,000 ML LIQUID GT PRN (17:14)
[2022-10-07] MEDS: ATORVASTATIN 20 MG TABLET GT SCH (20:39)
[2022-10-07] MEDS: NUTRISOURCE FIBER 4 GM PACKET GT SCH (20:40)
[2022-10-08] VITALS (10 sets, daily range): TEMP 97.5–98; O2SAT 98–99
[2022-10-08] MEDS: ALBUTEROL SULFATE 2.5 MG/3 ML NEBU NEB SCH ×4 (01:15→19:31)
[2022-10-08] MEDS: BACLOFEN 20 MG TABLET GT SCH ×3 (05:25→22:12)
[2022-10-08] MEDS: OMEPRAZOLE 20 MG CAPSULE.DR GT SCH ×2 (05:25→17:51)
[2022-10-08] MEDS: HYDROGEN PEROXIDE 3% 118 ML BOTTLE TP SCH ×2 (07:14→19:31)
[2022-10-08] MEDS: SODIUM CHLORIDE 1,000 MG TABLET GT SCH ×3 (09:00→17:51)
[2022-10-08] MEDS: METOPROLOL TARTRATE 25 MG TABLET GT SCH ×2 (09:00→20:34)
[2022-10-08] MEDS: REMEDY ESSENTIAL ZINC PASTE 113 GM TP SCH ×2 (09:00→20:33)
[2022-10-08] MEDS: VITAMINS A AND D OINT 42 GM TUBE TP SCH ×2 (09:00→20:33)
[2022-10-08] MEDS: LOSARTAN POTASSIUM 25 MG TABLET GT SCH (09:00)
[2022-10-08] MEDS: ASPIRIN 81 MG TAB.CHEW GT SCH (09:00)
[2022-10-08] MEDS: ACIDOPHILUS/BULGARICUS CHEW TAB GT SCH ×2 (09:00→20:32)
[2022-10-08] MEDS: CLOPIDOGREL 75 MG TABLET GT SCH (09:00)
[2022-10-08] MEDS: VITAL AF 1.2 1,000 ML LIQUID GT PRN (14:45)
[2022-10-08] MEDS: NUTRISOURCE FIBER 4 GM PACKET GT SCH (20:33)
[2022-10-08] MEDS: ATORVASTATIN 20 MG TABLET GT SCH (20:33)
[2022-10-08] MEDS: MULTIVIT, IRON, MIN NO. 8, FA TABLET GT SCH (20:33)
[2022-10-09] VITALS (10 sets, daily range): TEMP 97.8–98.6; O2SAT 98–99
[2022-10-09] MEDS: ALBUTEROL SULFATE 2.5 MG/3 ML NEBU NEB SCH ×4 (01:02→18:07)
[2022-10-09] MEDS: OMEPRAZOLE 20 MG CAPSULE.DR GT SCH ×2 (05:40→17:28)
[2022-10-09] MEDS: BACLOFEN 20 MG TABLET GT SCH ×3 (05:40→22:07)
[2022-10-09] MEDS: HYDROGEN PEROXIDE 3% 118 ML BOTTLE TP SCH ×2 (08:11→21:09)
[2022-10-09] MEDS: ASPIRIN 81 MG TAB.CHEW GT SCH (08:58)
[2022-10-09] MEDS: ACIDOPHILUS/BULGARICUS CHEW TAB GT SCH ×2 (08:59→20:58)
[2022-10-09] MEDS: LOSARTAN POTASSIUM 25 MG TABLET GT SCH (08:59)
[2022-10-09] MEDS: METOPROLOL TARTRATE 25 MG TABLET GT SCH ×2 (09:00→21:00)
[2022-10-09] MEDS: REMEDY ESSENTIAL ZINC PASTE 113 GM TP SCH ×2 (09:00→20:59)
[2022-10-09] MEDS: VITAMINS A AND D OINT 42 GM TUBE TP SCH ×2 (09:00→20:59)
[2022-10-09] MEDS: SODIUM CHLORIDE 1,000 MG TABLET GT SCH ×3 (09:00→17:28)
[2022-10-09] MEDS: CLOPIDOGREL 75 MG TABLET GT SCH (09:00)
[2022-10-09] MEDS: ATORVASTATIN 20 MG TABLET GT SCH (20:58)
[2022-10-09] MEDS: NUTRISOURCE FIBER 4 GM PACKET GT SCH (20:59)
[2022-10-10] VITALS (10 sets, daily range): BP systolic 114; BP diastolic 79; TEMP 97.8–97.9; O2SAT 97–99
[2022-10-10] MEDS: ALBUTEROL SULFATE 2.5 MG/3 ML NEBU NEB SCH ×4 (01:14→19:17)
[2022-10-10] MEDS: BACLOFEN 20 MG TABLET GT SCH ×3 (06:20→21:21)
[2022-10-10] MEDS: OMEPRAZOLE 20 MG CAPSULE.DR GT SCH ×2 (06:20→17:27)
[2022-10-10] MEDS: HYDROGEN PEROXIDE 3% 118 ML BOTTLE TP SCH ×2 (08:18→19:17)
[2022-10-10] MEDS: ASPIRIN 81 MG TAB.CHEW GT SCH (08:32)
[2022-10-10] MEDS: LOSARTAN POTASSIUM 25 MG TABLET GT SCH (08:39)
[2022-10-10] MEDS: ACIDOPHILUS/BULGARICUS CHEW TAB GT SCH ×2 (08:40→20:46)
[2022-10-10] MEDS: METOPROLOL TARTRATE 25 MG TABLET GT SCH ×2 (08:43→20:46)
[2022-10-10] MEDS: SODIUM CHLORIDE 1,000 MG TABLET GT SCH ×3 (08:43→17:27)
[2022-10-10] MEDS: REMEDY ESSENTIAL ZINC PASTE 113 GM TP SCH ×2 (08:43→20:46)
[2022-10-10] MEDS: CLOPIDOGREL 75 MG TABLET GT SCH (08:43)
[2022-10-10] MEDS: VITAMINS A AND D OINT 42 GM TUBE TP SCH ×2 (08:44→20:47)
[2022-10-10] MEDS: VITAL AF 1.2 1,000 ML LIQUID GT PRN (13:50)
[2022-10-10] MEDS: NUTRISOURCE FIBER 4 GM PACKET GT SCH (20:46)
[2022-10-10] MEDS: ATORVASTATIN 20 MG TABLET GT SCH (20:46)
[2022-10-10] MEDS: MULTIVIT, IRON, MIN NO. 8, FA TABLET GT SCH (20:46)
[2022-10-11] VITALS (10 sets, daily range): TEMP 96.8–98.3; O2SAT 97–99
[2022-10-11] MEDS: ALBUTEROL SULFATE 2.5 MG/3 ML NEBU NEB SCH ×4 (01:51→19:30)
[2022-10-11] MEDS: BACLOFEN 20 MG TABLET GT SCH ×3 (05:23→22:15)
[2022-10-11] MEDS: OMEPRAZOLE 20 MG CAPSULE.DR GT SCH ×2 (05:23→17:02)
[2022-10-11] MEDS: HYDROGEN PEROXIDE 3% 118 ML BOTTLE TP SCH ×2 (08:48→19:30)
[2022-10-11] MEDS: ASPIRIN 81 MG TAB.CHEW GT SCH (08:58)
[2022-10-11] MEDS: LOSARTAN POTASSIUM 25 MG TABLET GT SCH (08:59)
[2022-10-11] MEDS: REMEDY ESSENTIAL ZINC PASTE 113 GM TP SCH ×2 (08:59→20:48)
[2022-10-11] MEDS: CLOPIDOGREL 75 MG TABLET GT SCH (08:59)
[2022-10-11] MEDS: VITAMINS A AND D OINT 42 GM TUBE TP SCH ×2 (08:59→20:49)
[2022-10-11] MEDS: ACIDOPHILUS/BULGARICUS CHEW TAB GT SCH ×2 (08:59→20:42)
[2022-10-11] MEDS: SODIUM CHLORIDE 1,000 MG TABLET GT SCH ×3 (08:59→17:02)
[2022-10-11] MEDS: METOPROLOL TARTRATE 25 MG TABLET GT SCH ×2 (08:59→20:48)
[2022-10-11] MEDS: VITAL AF 1.2 1,000 ML LIQUID GT PRN (13:07)
[2022-10-11] MEDS: ATORVASTATIN 20 MG TABLET GT SCH (20:42)
[2022-10-11] MEDS: NUTRISOURCE FIBER 4 GM PACKET GT SCH (20:48)
[2022-10-12] VITALS (10 sets, daily range): TEMP 97.4–98.6; O2SAT 97–99
[2022-10-12] MEDS: ALBUTEROL SULFATE 2.5 MG/3 ML NEBU NEB SCH ×4 (01:02→20:17)
[2022-10-12] MEDS: OMEPRAZOLE 20 MG CAPSULE.DR GT SCH ×2 (05:05→17:06)
[2022-10-12] MEDS: BACLOFEN 20 MG TABLET GT SCH ×3 (05:05→21:04)
[2022-10-12] MEDS: HYDROGEN PEROXIDE 3% 118 ML BOTTLE TP SCH ×2 (08:17→18:53)
[2022-10-12] MEDS: ASPIRIN 81 MG TAB.CHEW GT SCH (09:37)
[2022-10-12] MEDS: ACIDOPHILUS/BULGARICUS CHEW TAB GT SCH ×2 (09:37→21:00)
[2022-10-12] MEDS: SODIUM CHLORIDE 1,000 MG TABLET GT SCH ×3 (09:46→17:06)
[2022-10-12] MEDS: CLOPIDOGREL 75 MG TABLET GT SCH (09:46)
[2022-10-12] MEDS: VITAMINS A AND D OINT 42 GM TUBE TP SCH ×2 (09:46→20:59)
[2022-10-12] MEDS: REMEDY ESSENTIAL ZINC PASTE 113 GM TP SCH ×2 (09:46→20:59)
[2022-10-12] MEDS: METOPROLOL TARTRATE 25 MG TABLET GT SCH ×2 (09:46→21:02)
[2022-10-12] MEDS: LOSARTAN POTASSIUM 25 MG TABLET GT SCH (09:49)
[2022-10-12] MEDS: VITAL AF 1.2 1,000 ML LIQUID GT PRN (13:42)
[2022-10-12] MEDS: MULTIVIT, IRON, MIN NO. 8, FA TABLET GT SCH (20:59)
[2022-10-12] MEDS: NUTRISOURCE FIBER 4 GM PACKET GT SCH (20:59)
[2022-10-12] MEDS: ATORVASTATIN 20 MG TABLET GT SCH (21:02)
[2022-10-13] VITALS (9 sets, daily range): TEMP 97.5; O2SAT 97–99
[2022-10-13] MEDS: ALBUTEROL SULFATE 2.5 MG/3 ML NEBU NEB SCH ×4 (01:34→19:22)
[2022-10-13] MEDS: OMEPRAZOLE 20 MG CAPSULE.DR GT SCH ×2 (06:24→17:01)
[2022-10-13] MEDS: BACLOFEN 20 MG TABLET GT SCH ×3 (06:24→21:25)
[2022-10-13] MEDS: ASPIRIN 81 MG TAB.CHEW GT SCH (09:01)
[2022-10-13] MEDS: LOSARTAN POTASSIUM 25 MG TABLET GT SCH (09:02)
[2022-10-13] MEDS: ACIDOPHILUS/BULGARICUS CHEW TAB GT SCH ×2 (09:02→21:24)
[2022-10-13] MEDS: SODIUM CHLORIDE 1,000 MG TABLET GT SCH ×3 (09:02→17:01)
[2022-10-13] MEDS: METOPROLOL TARTRATE 25 MG TABLET GT SCH ×2 (09:02→21:00)
[2022-10-13] MEDS: HYDROGEN PEROXIDE 3% 118 ML BOTTLE TP SCH ×2 (09:04→19:22)
[2022-10-13] MEDS: CLOPIDOGREL 75 MG TABLET GT SCH (09:04)
[2022-10-13] MEDS: VITAMINS A AND D OINT 42 GM TUBE TP SCH ×2 (09:04→21:25)
[2022-10-13] MEDS: REMEDY ESSENTIAL ZINC PASTE 113 GM TP SCH ×2 (09:04→21:25)
[2022-10-13] MEDS: VITAL AF 1.2 1,000 ML LIQUID GT PRN (12:03)
[2022-10-13] MEDS: NUTRISOURCE FIBER 4 GM PACKET GT SCH (21:25)
[2022-10-13] MEDS: ATORVASTATIN 20 MG TABLET GT SCH (21:25)
[2022-10-14] VITALS (9 sets, daily range): TEMP 98; O2SAT 98–99
[2022-10-14] MEDS: ALBUTEROL SULFATE 2.5 MG/3 ML NEBU NEB SCH ×4 (01:27→19:12)
[2022-10-14] MEDS: BACLOFEN 20 MG TABLET GT SCH ×3 (05:17→21:37)
[2022-10-14] MEDS: OMEPRAZOLE 20 MG CAPSULE.DR GT SCH ×2 (05:17→17:30)
[2022-10-14] MEDS: HYDROGEN PEROXIDE 3% 118 ML BOTTLE TP SCH ×2 (08:25→19:12)
[2022-10-14] MEDS: METOPROLOL TARTRATE 25 MG TABLET GT SCH ×2 (09:00→21:37)
[2022-10-14] MEDS: LOSARTAN POTASSIUM 25 MG TABLET GT SCH (09:38)
[2022-10-14] MEDS: ACIDOPHILUS/BULGARICUS CHEW TAB GT SCH ×2 (09:38→21:36)
[2022-10-14] MEDS: ASPIRIN 81 MG TAB.CHEW GT SCH (09:38)
[2022-10-14] MEDS: CLOPIDOGREL 75 MG TABLET GT SCH (09:40)
[2022-10-14] MEDS: REMEDY ESSENTIAL ZINC PASTE 113 GM TP SCH ×2 (09:40→21:37)
[2022-10-14] MEDS: VITAMINS A AND D OINT 42 GM TUBE TP SCH ×2 (09:40→21:37)
[2022-10-14] MEDS: SODIUM CHLORIDE 1,000 MG TABLET GT SCH ×3 (09:40→17:28)
[2022-10-14] MEDS: VITAL AF 1.2 1,000 ML LIQUID GT PRN (12:14)
[2022-10-14] MEDS: ATORVASTATIN 20 MG TABLET GT SCH (21:36)
[2022-10-14] MEDS: NUTRISOURCE FIBER 4 GM PACKET GT SCH (21:37)
[2022-10-14] MEDS: MULTIVIT, IRON, MIN NO. 8, FA TABLET GT SCH (21:37)
[2022-10-15] VITALS (10 sets, daily range): TEMP 97.5–97.8; O2SAT 98
[2022-10-15] MEDS: ALBUTEROL SULFATE 2.5 MG/3 ML NEBU NEB SCH ×4 (01:17→19:18)
[2022-10-15] MEDS: OMEPRAZOLE 20 MG CAPSULE.DR GT SCH ×2 (05:48→18:11)
[2022-10-15] MEDS: BACLOFEN 20 MG TABLET GT SCH ×3 (05:48→22:05)
[2022-10-15] MEDS: HYDROGEN PEROXIDE 3% 118 ML BOTTLE TP SCH ×2 (07:30→19:18)
[2022-10-15] MEDS: LOSARTAN POTASSIUM 25 MG TABLET GT SCH (09:00)
[2022-10-15] MEDS: METOPROLOL TARTRATE 25 MG TABLET GT SCH ×2 (09:00→21:00)
[2022-10-15] MEDS: VITAMINS A AND D OINT 42 GM TUBE TP SCH ×2 (09:00→21:00)
[2022-10-15] MEDS: ACIDOPHILUS/BULGARICUS CHEW TAB GT SCH ×2 (09:36→21:00)
[2022-10-15] MEDS: ASPIRIN 81 MG TAB.CHEW GT SCH (09:36)
[2022-10-15] MEDS: SODIUM CHLORIDE 1,000 MG TABLET GT SCH ×3 (09:39→17:09)
[2022-10-15] MEDS: CLOPIDOGREL 75 MG TABLET GT SCH (09:39)
[2022-10-15] MEDS: REMEDY ESSENTIAL ZINC PASTE 113 GM TP SCH ×2 (09:39→21:00)
[2022-10-15] MEDS: VITAL AF 1.2 1,000 ML LIQUID GT PRN (10:26)
[2022-10-15] MEDS: ATORVASTATIN 20 MG TABLET GT SCH (21:00)
[2022-10-15] MEDS: NUTRISOURCE FIBER 4 GM PACKET GT SCH (21:00)
[2022-10-16] VITALS (10 sets, daily range): TEMP 98.2; O2SAT 98
[2022-10-16] MEDS: ALBUTEROL SULFATE 2.5 MG/3 ML NEBU NEB SCH ×4 (01:04→19:03)
[2022-10-16] MEDS: BACLOFEN 20 MG TABLET GT SCH ×3 (05:42→22:01)
[2022-10-16] MEDS: OMEPRAZOLE 20 MG CAPSULE.DR GT SCH ×2 (05:42→18:18)
[2022-10-16] MEDS: HYDROGEN PEROXIDE 3% 118 ML BOTTLE TP SCH ×2 (07:56→19:03)
[2022-10-16] MEDS: ASPIRIN 81 MG TAB.CHEW GT SCH (08:23)
[2022-10-16] MEDS: LOSARTAN POTASSIUM 25 MG TABLET GT SCH (08:29)
[2022-10-16] MEDS: METOPROLOL TARTRATE 25 MG TABLET GT SCH ×2 (08:30→20:30)
[2022-10-16] MEDS: ACIDOPHILUS/BULGARICUS CHEW TAB GT SCH ×2 (08:30→20:30)
[2022-10-16] MEDS: VITAMINS A AND D OINT 42 GM TUBE TP SCH ×2 (08:31→20:31)
[2022-10-16] MEDS: REMEDY ESSENTIAL ZINC PASTE 113 GM TP SCH ×2 (08:31→20:31)
[2022-10-16] MEDS: SODIUM CHLORIDE 1,000 MG TABLET GT SCH ×3 (08:36→17:00)
[2022-10-16] MEDS: CLOPIDOGREL 75 MG TABLET GT SCH (08:37)
[2022-10-16] MEDS: VITAL AF 1.2 1,000 ML LIQUID GT PRN (12:01)
[2022-10-16] MEDS: ATORVASTATIN 20 MG TABLET GT SCH (20:30)
[2022-10-16] MEDS: MULTIVIT, IRON, MIN NO. 8, FA TABLET GT SCH (20:31)
[2022-10-16] MEDS: NUTRISOURCE FIBER 4 GM PACKET GT SCH (20:31)
[2022-10-17] VITALS (10 sets, daily range): TEMP 97.4–98.3; O2SAT 98–99
[2022-10-17] MEDS: ALBUTEROL SULFATE 2.5 MG/3 ML NEBU NEB SCH ×4 (01:20→20:35)
[2022-10-17] MEDS: OMEPRAZOLE 20 MG CAPSULE.DR GT SCH ×2 (05:24→17:49)
[2022-10-17] MEDS: BACLOFEN 20 MG TABLET GT SCH ×3 (05:24→21:48)
[2022-10-17] MEDS: HYDROGEN PEROXIDE 3% 118 ML BOTTLE TP SCH ×2 (07:27→21:05)
[2022-10-17] MEDS: ACIDOPHILUS/BULGARICUS CHEW TAB GT SCH ×2 (09:24→21:47)
[2022-10-17] MEDS: ASPIRIN 81 MG TAB.CHEW GT SCH (09:24)
[2022-10-17] MEDS: REMEDY ESSENTIAL ZINC PASTE 113 GM TP SCH ×2 (09:25→21:48)
[2022-10-17] MEDS: VITAMINS A AND D OINT 42 GM TUBE TP SCH ×2 (09:25→21:48)
[2022-10-17] MEDS: SODIUM CHLORIDE 1,000 MG TABLET GT SCH ×3 (09:29→17:49)
[2022-10-17] MEDS: CLOPIDOGREL 75 MG TABLET GT SCH (09:29)
[2022-10-17] MEDS: METOPROLOL TARTRATE 25 MG TABLET GT SCH ×2 (09:30→21:48)
[2022-10-17] MEDS: LOSARTAN POTASSIUM 25 MG TABLET GT SCH (09:31)
[2022-10-17] MEDS: VITAL AF 1.2 1,000 ML LIQUID GT PRN (15:41)
[2022-10-17] MEDS: diphenhydrAMINE 25 MG/10 ML UDC GT PRN (15:42)
[2022-10-17] MEDS: ATORVASTATIN 20 MG TABLET GT SCH (21:47)
[2022-10-17] MEDS: NUTRISOURCE FIBER 4 GM PACKET GT SCH (21:48)
[2022-10-18] VITALS (10 sets, daily range): TEMP 97.4–98.1; O2SAT 98–99
[2022-10-18] MEDS: ALBUTEROL SULFATE 2.5 MG/3 ML NEBU NEB SCH ×4 (01:48→20:05)
[2022-10-18] MEDS: OMEPRAZOLE 20 MG CAPSULE.DR GT SCH ×2 (06:17→17:39)
[2022-10-18] MEDS: BACLOFEN 20 MG TABLET GT SCH ×3 (06:17→21:48)
[2022-10-18] MEDS: ASPIRIN 81 MG TAB.CHEW GT SCH (08:45)
[2022-10-18] MEDS: ACIDOPHILUS/BULGARICUS CHEW TAB GT SCH ×2 (08:45→20:23)
[2022-10-18] MEDS: CLOPIDOGREL 75 MG TABLET GT SCH (08:46)
[2022-10-18] MEDS: METOPROLOL TARTRATE 25 MG TABLET GT SCH ×2 (08:46→20:24)
[2022-10-18] MEDS: SODIUM CHLORIDE 1,000 MG TABLET GT SCH ×3 (08:46→17:39)
[2022-10-18] MEDS: LOSARTAN POTASSIUM 25 MG TABLET GT SCH (08:46)
[2022-10-18] MEDS: REMEDY ESSENTIAL ZINC PASTE 113 GM TP SCH ×2 (08:46→20:24)
[2022-10-18] MEDS: VITAMINS A AND D OINT 42 GM TUBE TP SCH ×2 (08:46→20:24)
[2022-10-18] MEDS: HYDROGEN PEROXIDE 3% 118 ML BOTTLE TP SCH ×2 (09:00→20:05)
[2022-10-18] MEDS: ATORVASTATIN 20 MG TABLET GT SCH (20:23)
[2022-10-18] MEDS: MULTIVIT, IRON, MIN NO. 8, FA TABLET GT SCH (20:24)
[2022-10-18] MEDS: NUTRISOURCE FIBER 4 GM PACKET GT SCH (20:24)
[2022-10-19] VITALS (10 sets, daily range): TEMP 97.8–98; O2SAT 98
[2022-10-19] MEDS: ALBUTEROL SULFATE 2.5 MG/3 ML NEBU NEB SCH ×4 (01:09→19:15)
[2022-10-19] MEDS: BACLOFEN 20 MG TABLET GT SCH ×2 (05:58→13:04)
[2022-10-19] MEDS: OMEPRAZOLE 20 MG CAPSULE.DR GT SCH ×2 (05:58→17:37)
[2022-10-19] MEDS: HYDROGEN PEROXIDE 3% 118 ML BOTTLE TP SCH ×2 (07:41→19:15)
[2022-10-19] MEDS: REMEDY ESSENTIAL ZINC PASTE 113 GM TP SCH ×2 (08:49→20:33)
[2022-10-19] MEDS: CLOPIDOGREL 75 MG TABLET GT SCH (08:49)
[2022-10-19] MEDS: LOSARTAN POTASSIUM 25 MG TABLET GT SCH (08:49)
[2022-10-19] MEDS: VITAMINS A AND D OINT 42 GM TUBE TP SCH ×2 (08:49→20:33)
[2022-10-19] MEDS: METOPROLOL TARTRATE 25 MG TABLET GT SCH ×2 (08:49→20:33)
[2022-10-19] MEDS: SODIUM CHLORIDE 1,000 MG TABLET GT SCH ×3 (08:49→17:37)
[2022-10-19] MEDS: ACIDOPHILUS/BULGARICUS CHEW TAB GT SCH ×2 (08:49→20:32)
[2022-10-19] MEDS: ASPIRIN 81 MG TAB.CHEW GT SCH (08:49)
[2022-10-19] MEDS: ATORVASTATIN 20 MG TABLET GT SCH (20:32)
[2022-10-19] MEDS: NUTRISOURCE FIBER 4 GM PACKET GT SCH (20:33)
[2022-10-19] MEDS: BACLOFEN 10 MG TABLET GT SCH (21:01)
[2022-10-20] VITALS (10 sets, daily range): TEMP 97.6–98.2; O2SAT 97–99
[2022-10-20] MEDS: ALBUTEROL SULFATE 2.5 MG/3 ML NEBU NEB SCH ×4 (01:30→19:21)
[2022-10-20] MEDS: BACLOFEN 10 MG TABLET GT SCH ×3 (05:14→22:30)
[2022-10-20] MEDS: OMEPRAZOLE 20 MG CAPSULE.DR GT SCH ×2 (05:14→17:15)
[2022-10-20 07:01] LABS: BASOPHILS % (AUTO) 0.7 % (0.0-2.0); EOSINOPHILS # (AUTO) 0.6 K/uL (0.0-0.7); EOSINOPHILS % (AUTO) 10.8 % (0.0-7.0); HEMATOCRIT 37.9 % (36.7-47.1); HEMOGLOBIN 12.7 g/dL (12.5-16.3); LYMPHOCYTES # (AUTO) 1.6 K/uL (0.8-4.8); LYMPHOCYTES % (AUTO) 28.5 % (20.5-51.5); MEAN CORPUSCULAR HEMOGLOBIN 31.4 uug (23.8-33.4); MEAN CORPUSCULAR HGB CONC 34 g/dL (32.5-36.3); MEAN CORPUSCULAR VOLUME 93.5 fL (73.0-96.2); MONOCYTES # (AUTO) 0.4 K/uL (0.1-1.30); MONOCYTES % (AUTO) 7.8 % (0.0-11.0); NEUTROPHILS # (AUTO) 2.9 K/uL (1.8-8.9); NEUTROPHILS % (AUTO) 52.2 % (38.5-71.5); PLATELET COUNT (AUTO) 232 K/uL (152-348); RED BLOOD CELL COUNT(AUTO) 4.06 MIL/uL (4.06-5.63); RED CELL DISTRIBUTION WIDTH 13.3 % (12.1-16.2); WHITE BLOOD COUNT (AUTO) 5.5 K/uL (3.6-10.2)
[2022-10-20 07:04] LABS: DIFFERENTIAL COMMENT 1
[2022-10-20] MEDS: HYDROGEN PEROXIDE 3% 118 ML BOTTLE TP SCH ×2 (08:10→19:21)
[2022-10-20] MEDS: ASPIRIN 81 MG TAB.CHEW GT SCH (08:35)
[2022-10-20] MEDS: ACIDOPHILUS/BULGARICUS CHEW TAB GT SCH ×2 (08:37→21:00)
[2022-10-20] MEDS: LOSARTAN POTASSIUM 25 MG TABLET GT SCH (08:37)
[2022-10-20] MEDS: REMEDY ESSENTIAL ZINC PASTE 113 GM TP SCH ×2 (08:38→21:00)
[2022-10-20] MEDS: SODIUM CHLORIDE 1,000 MG TABLET GT SCH ×3 (08:38→17:15)
[2022-10-20] MEDS: METOPROLOL TARTRATE 25 MG TABLET GT SCH ×2 (08:38→21:00)
[2022-10-20] MEDS: CLOPIDOGREL 75 MG TABLET GT SCH (08:38)
[2022-10-20] MEDS: VITAMINS A AND D OINT 42 GM TUBE TP SCH ×2 (08:39→21:00)
[2022-10-20 08:43] LABS: CALCIUM 9.2 mg/dL (8.5-10.1); CARBON DIOXIDE 28 mmol/L (21-32); CHLORIDE 101 mmol/L (98-107); CREATININE 0.6 mg/dL (0.6-1.3); GLUCOSE 99 mg/dL (74-106); PHOSPHOROUS 3.2 mg/dL (2.5-4.9); POTASSIUM 4.5 mmol/L (3.5-5.1); SODIUM SERUM 137 mmol/L (136-145); UREA NITROGEN, BLOOD 28 mg/dL (7-18)
[2022-10-20] MEDS: VITAL AF 1.2 1,000 ML LIQUID GT PRN (11:07)
[2022-10-20] MEDS: MULTIVIT, IRON, MIN NO. 8, FA TABLET GT SCH (21:00)
[2022-10-20] MEDS: NUTRISOURCE FIBER 4 GM PACKET GT SCH (21:00)
[2022-10-20] MEDS: ATORVASTATIN 20 MG TABLET GT SCH (21:00)
[2022-10-21] VITALS (8 sets, daily range): TEMP 97.6; O2SAT 97–99
[2022-10-21] MEDS: ALBUTEROL SULFATE 2.5 MG/3 ML NEBU NEB SCH ×4 (00:45→19:31)
[2022-10-21] MEDS: OMEPRAZOLE 20 MG CAPSULE.DR GT SCH ×2 (06:25→17:00)
[2022-10-21] MEDS: BACLOFEN 10 MG TABLET GT SCH ×3 (06:25→22:37)
[2022-10-21] MEDS: HYDROGEN PEROXIDE 3% 118 ML BOTTLE TP SCH ×2 (07:39→19:31)
[2022-10-21] MEDS: ASPIRIN 81 MG TAB.CHEW GT SCH (08:31)
[2022-10-21] MEDS: LOSARTAN POTASSIUM 25 MG TABLET GT SCH (08:31)
[2022-10-21] MEDS: CLOPIDOGREL 75 MG TABLET GT SCH (08:32)
[2022-10-21] MEDS: ACIDOPHILUS/BULGARICUS CHEW TAB GT SCH ×2 (08:32→21:00)
[2022-10-21] MEDS: METOPROLOL TARTRATE 25 MG TABLET GT SCH ×2 (08:32→21:00)
[2022-10-21] MEDS: SODIUM CHLORIDE 1,000 MG TABLET GT SCH ×3 (08:32→17:00)
[2022-10-21] MEDS: REMEDY ESSENTIAL ZINC PASTE 113 GM TP SCH ×2 (08:33→21:00)
[2022-10-21] MEDS: VITAMINS A AND D OINT 42 GM TUBE TP SCH ×2 (08:33→21:00)
[2022-10-21] MEDS: VITAL AF 1.2 1,000 ML LIQUID GT PRN (09:59)
[2022-10-21] MEDS: NUTRISOURCE FIBER 4 GM PACKET GT SCH (21:00)
[2022-10-21] MEDS: ATORVASTATIN 20 MG TABLET GT SCH (21:00)
[2022-10-22] VITALS (10 sets, daily range): TEMP 97.6–98.3; O2SAT 98–99
[2022-10-22] MEDS: ALBUTEROL SULFATE 2.5 MG/3 ML NEBU NEB SCH ×4 (01:34→19:05)
[2022-10-22] MEDS: OMEPRAZOLE 20 MG CAPSULE.DR GT SCH ×2 (06:21→17:04)
[2022-10-22] MEDS: BACLOFEN 10 MG TABLET GT SCH ×3 (06:21→22:17)
[2022-10-22] MEDS: HYDROGEN PEROXIDE 3% 118 ML BOTTLE TP SCH ×2 (08:28→19:05)
[2022-10-22] MEDS: REMEDY ESSENTIAL ZINC PASTE 113 GM TP SCH ×2 (08:58→21:00)
[2022-10-22] MEDS: CLOPIDOGREL 75 MG TABLET GT SCH (08:58)
[2022-10-22] MEDS: METOPROLOL TARTRATE 25 MG TABLET GT SCH ×2 (08:58→21:00)
[2022-10-22] MEDS: ACIDOPHILUS/BULGARICUS CHEW TAB GT SCH ×2 (08:58→21:00)
[2022-10-22] MEDS: ASPIRIN 81 MG TAB.CHEW GT SCH (08:58)
[2022-10-22] MEDS: SODIUM CHLORIDE 1,000 MG TABLET GT SCH ×3 (08:58→17:04)
[2022-10-22] MEDS: LOSARTAN POTASSIUM 25 MG TABLET GT SCH (08:58)
[2022-10-22] MEDS: VITAMINS A AND D OINT 42 GM TUBE TP SCH ×2 (08:59→21:00)
[2022-10-22] MEDS: MULTIVIT, IRON, MIN NO. 8, FA TABLET GT SCH (21:00)
[2022-10-22] MEDS: NUTRISOURCE FIBER 4 GM PACKET GT SCH (21:00)
[2022-10-22] MEDS: ATORVASTATIN 20 MG TABLET GT SCH (21:00)
[2022-10-23] VITALS (10 sets, daily range): TEMP 97.6–97.8; O2SAT 98–99
[2022-10-23] MEDS: ALBUTEROL SULFATE 2.5 MG/3 ML NEBU NEB SCH ×4 (01:45→19:18)
[2022-10-23] MEDS: VITAL AF 1.2 1,000 ML LIQUID GT PRN (02:10)
[2022-10-23] MEDS: BACLOFEN 10 MG TABLET GT SCH ×3 (05:19→22:00)
[2022-10-23] MEDS: OMEPRAZOLE 20 MG CAPSULE.DR GT SCH ×2 (05:19→17:23)
[2022-10-23] MEDS: HYDROGEN PEROXIDE 3% 118 ML BOTTLE TP SCH ×2 (08:23→19:18)
[2022-10-23] MEDS: LOSARTAN POTASSIUM 25 MG TABLET GT SCH (09:00)
[2022-10-23] MEDS: METOPROLOL TARTRATE 25 MG TABLET GT SCH ×2 (09:00→20:15)
[2022-10-23] MEDS: ACIDOPHILUS/BULGARICUS CHEW TAB GT SCH ×2 (09:44→20:15)
[2022-10-23] MEDS: ASPIRIN 81 MG TAB.CHEW GT SCH (09:44)
[2022-10-23] MEDS: REMEDY ESSENTIAL ZINC PASTE 113 GM TP SCH ×2 (09:45→20:15)
[2022-10-23] MEDS: VITAMINS A AND D OINT 42 GM TUBE TP SCH ×2 (09:45→20:15)
[2022-10-23] MEDS: CLOPIDOGREL 75 MG TABLET GT SCH (09:48)
[2022-10-23] MEDS: SODIUM CHLORIDE 1,000 MG TABLET GT SCH ×3 (09:48→17:23)
[2022-10-23] MEDS: NUTRISOURCE FIBER 4 GM PACKET GT SCH (20:15)
[2022-10-23] MEDS: ATORVASTATIN 20 MG TABLET GT SCH (20:15)
[2022-10-24] VITALS (10 sets, daily range): TEMP 97.5–97.9; O2SAT 98–99
[2022-10-24] MEDS: VITAL AF 1.2 1,000 ML LIQUID GT PRN ×2 (01:12→21:02)
[2022-10-24] MEDS: ALBUTEROL SULFATE 2.5 MG/3 ML NEBU NEB SCH ×4 (01:21→19:37)
[2022-10-24] MEDS: OMEPRAZOLE 20 MG CAPSULE.DR GT SCH ×2 (06:02→17:04)
[2022-10-24] MEDS: BACLOFEN 10 MG TABLET GT SCH ×3 (06:02→21:02)
[2022-10-24] MEDS: ASPIRIN 81 MG TAB.CHEW GT SCH (08:20)
[2022-10-24] MEDS: ACIDOPHILUS/BULGARICUS CHEW TAB GT SCH ×2 (08:20→20:47)
[2022-10-24] MEDS: LOSARTAN POTASSIUM 25 MG TABLET GT SCH (08:20)
[2022-10-24] MEDS: REMEDY ESSENTIAL ZINC PASTE 113 GM TP SCH ×2 (08:21→20:47)
[2022-10-24] MEDS: SODIUM CHLORIDE 1,000 MG TABLET GT SCH ×3 (08:21→17:04)
[2022-10-24] MEDS: METOPROLOL TARTRATE 25 MG TABLET GT SCH ×2 (08:21→20:47)
[2022-10-24] MEDS: CLOPIDOGREL 75 MG TABLET GT SCH (08:21)
[2022-10-24] MEDS: VITAMINS A AND D OINT 42 GM TUBE TP SCH ×2 (08:21→20:48)
[2022-10-24] MEDS: HYDROGEN PEROXIDE 3% 118 ML BOTTLE TP SCH ×2 (10:47→19:38)
[2022-10-24] MEDS: NUTRISOURCE FIBER 4 GM PACKET GT SCH (20:47)
[2022-10-24] MEDS: MULTIVIT, IRON, MIN NO. 8, FA TABLET GT SCH (20:47)
[2022-10-24] MEDS: ATORVASTATIN 20 MG TABLET GT SCH (20:47)
[2022-10-25] VITALS (9 sets, daily range): TEMP 97.6–98.3; O2SAT 97–99
[2022-10-25] MEDS: ALBUTEROL SULFATE 2.5 MG/3 ML NEBU NEB SCH ×4 (01:47→19:40)
[2022-10-25] MEDS: BACLOFEN 10 MG TABLET GT SCH ×3 (05:28→22:00)
[2022-10-25] MEDS: OMEPRAZOLE 20 MG CAPSULE.DR GT SCH ×2 (05:28→18:26)
[2022-10-25] MEDS: HYDROGEN PEROXIDE 3% 118 ML BOTTLE TP SCH ×2 (07:25→21:03)
[2022-10-25] MEDS: ASPIRIN 81 MG TAB.CHEW GT SCH (08:09)
[2022-10-25] MEDS: ACIDOPHILUS/BULGARICUS CHEW TAB GT SCH ×2 (08:09→21:30)
[2022-10-25] MEDS: LOSARTAN POTASSIUM 25 MG TABLET GT SCH (08:09)
[2022-10-25] MEDS: REMEDY ESSENTIAL ZINC PASTE 113 GM TP SCH ×2 (08:10→21:31)
[2022-10-25] MEDS: METOPROLOL TARTRATE 25 MG TABLET GT SCH ×2 (08:10→21:00)
[2022-10-25] MEDS: CLOPIDOGREL 75 MG TABLET GT SCH (08:10)
[2022-10-25] MEDS: SODIUM CHLORIDE 1,000 MG TABLET GT SCH ×3 (08:10→16:55)
[2022-10-25] MEDS: VITAMINS A AND D OINT 42 GM TUBE TP SCH ×2 (08:10→21:31)
[2022-10-25] MEDS: NUTRISOURCE FIBER 4 GM PACKET GT SCH (21:31)
[2022-10-25] MEDS: ATORVASTATIN 20 MG TABLET GT SCH (21:41)
[2022-10-25] MEDS ORDERED: BACLOFEN 10 MG TABLET ONE ×2 (22:16→22:34)
[2022-10-26] VITALS (10 sets, daily range): TEMP 97.9–98.7; O2SAT 97–99
[2022-10-26] MEDS: ALBUTEROL SULFATE 2.5 MG/3 ML NEBU NEB SCH ×4 (00:50→19:45)
[2022-10-26] MEDS: OMEPRAZOLE 20 MG CAPSULE.DR GT SCH ×2 (05:44→18:21)
[2022-10-26] MEDS: BACLOFEN 10 MG TABLET GT SCH ×3 (05:44→21:36)
[2022-10-26] MEDS: HYDROGEN PEROXIDE 3% 118 ML BOTTLE TP SCH ×2 (07:40→20:55)
[2022-10-26] MEDS: CLOPIDOGREL 75 MG TABLET GT SCH (09:00)
[2022-10-26] MEDS: METOPROLOL TARTRATE 25 MG TABLET GT SCH ×2 (09:00→21:31)
[2022-10-26] MEDS: ACIDOPHILUS/BULGARICUS CHEW TAB GT SCH ×2 (09:00→21:30)
[2022-10-26] MEDS: VITAMINS A AND D OINT 42 GM TUBE TP SCH ×2 (09:00→21:34)
[2022-10-26] MEDS: LOSARTAN POTASSIUM 25 MG TABLET GT SCH (09:00)
[2022-10-26] MEDS: SODIUM CHLORIDE 1,000 MG TABLET GT SCH ×3 (09:00→17:00)
[2022-10-26] MEDS: REMEDY ESSENTIAL ZINC PASTE 113 GM TP SCH ×2 (09:00→21:34)
[2022-10-26] MEDS: ASPIRIN 81 MG TAB.CHEW GT SCH (09:00)
[2022-10-26] MEDS: VITAL AF 1.2 1,000 ML LIQUID GT PRN (12:41)
[2022-10-26] MEDS: ATORVASTATIN 20 MG TABLET GT SCH (21:30)
[2022-10-26] MEDS: NUTRISOURCE FIBER 4 GM PACKET GT SCH (21:31)
[2022-10-26] MEDS: MULTIVIT, IRON, MIN NO. 8, FA TABLET GT SCH (21:33)
[2022-10-27] VITALS (11 sets, daily range): TEMP 97–98.9; O2SAT 97–99
[2022-10-27] MEDS: ALBUTEROL SULFATE 2.5 MG/3 ML NEBU NEB SCH ×4 (01:18→19:40)
[2022-10-27] MEDS: BACLOFEN 10 MG TABLET GT SCH ×3 (05:48→22:51)
[2022-10-27] MEDS: OMEPRAZOLE 20 MG CAPSULE.DR GT SCH ×2 (05:48→17:29)
[2022-10-27] MEDS: VITAL AF 1.2 1,000 ML LIQUID GT PRN (05:48)
[2022-10-27] MEDS: ASPIRIN 81 MG TAB.CHEW GT SCH (09:07)
[2022-10-27] MEDS: ACIDOPHILUS/BULGARICUS CHEW TAB GT SCH ×2 (09:09→20:46)
[2022-10-27] MEDS: REMEDY ESSENTIAL ZINC PASTE 113 GM TP SCH ×2 (09:10→20:47)
[2022-10-27] MEDS: VITAMINS A AND D OINT 42 GM TUBE TP SCH ×2 (09:10→20:47)
[2022-10-27] MEDS: METOPROLOL TARTRATE 25 MG TABLET GT SCH ×2 (09:16→20:47)
[2022-10-27] MEDS: SODIUM CHLORIDE 1,000 MG TABLET GT SCH ×3 (09:17→17:28)
[2022-10-27] MEDS: CLOPIDOGREL 75 MG TABLET GT SCH (09:17)
[2022-10-27] MEDS: LOSARTAN POTASSIUM 25 MG TABLET GT SCH (09:19)
[2022-10-27] MEDS: HYDROGEN PEROXIDE 3% 118 ML BOTTLE TP SCH ×2 (09:28→20:36)
[2022-10-27] MEDS: ATORVASTATIN 20 MG TABLET GT SCH (20:46)
[2022-10-27] MEDS: NUTRISOURCE FIBER 4 GM PACKET GT SCH (20:47)
[2022-10-28] VITALS (9 sets, daily range): TEMP 97.8–98.6; O2SAT 98–99
[2022-10-28] MEDS: ALBUTEROL SULFATE 2.5 MG/3 ML NEBU NEB SCH ×4 (01:26→19:14)
[2022-10-28] MEDS: VITAL AF 1.2 1,000 ML LIQUID GT PRN (03:16)
[2022-10-28] MEDS: OMEPRAZOLE 20 MG CAPSULE.DR GT SCH ×2 (05:56→17:48)
[2022-10-28] MEDS: BACLOFEN 10 MG TABLET GT SCH ×3 (05:56→21:06)
[2022-10-28] MEDS: HYDROGEN PEROXIDE 3% 118 ML BOTTLE TP SCH ×2 (08:33→19:14)
[2022-10-28] MEDS: METOPROLOL TARTRATE 25 MG TABLET GT SCH ×2 (09:00→21:09)
[2022-10-28] MEDS: ASPIRIN 81 MG TAB.CHEW GT SCH (09:11)
[2022-10-28] MEDS: LOSARTAN POTASSIUM 25 MG TABLET GT SCH (09:13)
[2022-10-28] MEDS: SODIUM CHLORIDE 1,000 MG TABLET GT SCH ×3 (09:14→17:48)
[2022-10-28] MEDS: REMEDY ESSENTIAL ZINC PASTE 113 GM TP SCH ×2 (09:14→21:06)
[2022-10-28] MEDS: CLOPIDOGREL 75 MG TABLET GT SCH (09:14)
[2022-10-28] MEDS: ACIDOPHILUS/BULGARICUS CHEW TAB GT SCH ×2 (09:14→21:05)
[2022-10-28] MEDS: VITAMINS A AND D OINT 42 GM TUBE TP SCH ×2 (09:14→21:06)
[2022-10-28] MEDS: NUTRISOURCE FIBER 4 GM PACKET GT SCH (21:06)
[2022-10-28] MEDS: MULTIVIT, IRON, MIN NO. 8, FA TABLET GT SCH (21:06)
[2022-10-28] MEDS: ATORVASTATIN 20 MG TABLET GT SCH (21:09)
[2022-10-29] VITALS (10 sets, daily range): TEMP 98.3–98.6; O2SAT 98–99
[2022-10-29] MEDS: ALBUTEROL SULFATE 2.5 MG/3 ML NEBU NEB SCH ×4 (01:41→17:53)
[2022-10-29] MEDS: VITAL AF 1.2 1,000 ML LIQUID GT PRN (03:48)
[2022-10-29] MEDS: BACLOFEN 10 MG TABLET GT SCH ×3 (06:15→22:00)
[2022-10-29] MEDS: OMEPRAZOLE 20 MG CAPSULE.DR GT SCH ×2 (06:15→17:01)
[2022-10-29] MEDS: METOPROLOL TARTRATE 25 MG TABLET GT SCH ×2 (08:27→21:00)
[2022-10-29] MEDS: ASPIRIN 81 MG TAB.CHEW GT SCH (08:36)
[2022-10-29] MEDS: CLOPIDOGREL 75 MG TABLET GT SCH (08:37)
[2022-10-29] MEDS: ACIDOPHILUS/BULGARICUS CHEW TAB GT SCH ×2 (08:37→21:00)
[2022-10-29] MEDS: LOSARTAN POTASSIUM 25 MG TABLET GT SCH (08:37)
[2022-10-29] MEDS: VITAMINS A AND D OINT 42 GM TUBE TP SCH ×2 (08:37→21:00)
[2022-10-29] MEDS: REMEDY ESSENTIAL ZINC PASTE 113 GM TP SCH ×2 (08:37→21:00)
[2022-10-29] MEDS: SODIUM CHLORIDE 1,000 MG TABLET GT SCH ×3 (08:37→17:01)
[2022-10-29] MEDS: diphenhydrAMINE 25 MG/10 ML UDC GT PRN ×2 (08:44→23:02)
[2022-10-29] MEDS: HYDROGEN PEROXIDE 3% 118 ML BOTTLE TP SCH ×2 (09:00→20:37)
[2022-10-29] MEDS: ATORVASTATIN 20 MG TABLET GT SCH (21:00)
[2022-10-29] MEDS: NUTRISOURCE FIBER 4 GM PACKET GT SCH (21:00)
[2022-10-29] MEDS ORDERED: BACLOFEN 10 MG TABLET ONE (22:44)
[2022-10-30] VITALS (10 sets, daily range): TEMP 97.3–98.6; O2SAT 98–99
[2022-10-30] MEDS: VITAL AF 1.2 1,000 ML LIQUID GT PRN (00:20)
[2022-10-30] MEDS: ALBUTEROL SULFATE 2.5 MG/3 ML NEBU NEB SCH ×4 (01:13→22:20)
[2022-10-30] MEDS: OMEPRAZOLE 20 MG CAPSULE.DR GT SCH ×2 (06:20→17:53)
[2022-10-30] MEDS: BACLOFEN 10 MG TABLET GT SCH ×3 (06:20→21:14)
[2022-10-30] MEDS: ASPIRIN 81 MG TAB.CHEW GT SCH (08:43)
[2022-10-30] MEDS: LOSARTAN POTASSIUM 25 MG TABLET GT SCH (08:44)
[2022-10-30] MEDS: ACIDOPHILUS/BULGARICUS CHEW TAB GT SCH ×2 (08:44→21:12)
[2022-10-30] MEDS: SODIUM CHLORIDE 1,000 MG TABLET GT SCH ×3 (08:45→17:53)
[2022-10-30] MEDS: VITAMINS A AND D OINT 42 GM TUBE TP SCH ×2 (08:45→21:15)
[2022-10-30] MEDS: CLOPIDOGREL 75 MG TABLET GT SCH (08:45)
[2022-10-30] MEDS: REMEDY ESSENTIAL ZINC PASTE 113 GM TP SCH ×2 (08:45→21:15)
[2022-10-30] MEDS: METOPROLOL TARTRATE 25 MG TABLET GT SCH ×2 (08:45→21:00)
[2022-10-30] MEDS: HYDROGEN PEROXIDE 3% 118 ML BOTTLE TP SCH ×2 (08:47→22:20)
[2022-10-30] MEDS: diphenhydrAMINE 25 MG/10 ML UDC GT PRN (18:27)
[2022-10-30] MEDS: NUTRISOURCE FIBER 4 GM PACKET GT SCH (21:13)
[2022-10-30] MEDS: ATORVASTATIN 20 MG TABLET GT SCH (21:13)
[2022-10-30] MEDS: MULTIVIT, IRON, MIN NO. 8, FA TABLET GT SCH (21:14)
[2022-10-31] VITALS (12 sets, daily range): BP systolic 114; BP diastolic 63; TEMP 97.6–98.6; O2SAT 97–99
[2022-10-31] MEDS: ALBUTEROL SULFATE 2.5 MG/3 ML NEBU NEB SCH ×4 (02:04→19:31)
[2022-10-31] MEDS: diphenhydrAMINE 25 MG/10 ML UDC GT PRN (04:50)
[2022-10-31] MEDS: OMEPRAZOLE 20 MG CAPSULE.DR GT SCH ×2 (05:01→17:07)
[2022-10-31] MEDS: BACLOFEN 10 MG TABLET GT SCH ×3 (05:01→21:54)
[2022-10-31] MEDS: METOPROLOL TARTRATE 25 MG TABLET GT SCH ×2 (09:00→20:48)
[2022-10-31] MEDS: LOSARTAN POTASSIUM 25 MG TABLET GT SCH (09:00)
[2022-10-31] MEDS: ASPIRIN 81 MG TAB.CHEW GT SCH (09:04)
[2022-10-31] MEDS: SODIUM CHLORIDE 1,000 MG TABLET GT SCH ×3 (09:07→17:07)
[2022-10-31] MEDS: CLOPIDOGREL 75 MG TABLET GT SCH (09:07)
[2022-10-31] MEDS: REMEDY ESSENTIAL ZINC PASTE 113 GM TP SCH ×2 (09:07→20:48)
[2022-10-31] MEDS: VITAMINS A AND D OINT 42 GM TUBE TP SCH ×2 (09:09→20:49)
[2022-10-31] MEDS: ACIDOPHILUS/BULGARICUS CHEW TAB GT SCH ×2 (09:09→20:48)
[2022-10-31] MEDS: HYDROGEN PEROXIDE 3% 118 ML BOTTLE TP SCH ×2 (10:38→19:31)
[2022-10-31] MEDS: NUTRISOURCE FIBER 4 GM PACKET GT SCH (20:48)
[2022-10-31] MEDS: ATORVASTATIN 20 MG TABLET GT SCH (20:48)
[2022-10-31] MEDS: VITAL AF 1.2 1,000 ML LIQUID GT PRN (22:30)
[2022-11-01] VITALS (10 sets, daily range): TEMP 97.6–98.3; O2SAT 96–99
[2022-11-01] MEDS: ALBUTEROL SULFATE 2.5 MG/3 ML NEBU NEB SCH ×4 (01:34→19:11)
[2022-11-01] MEDS: BACLOFEN 10 MG TABLET GT SCH ×3 (05:47→22:08)
[2022-11-01] MEDS: OMEPRAZOLE 20 MG CAPSULE.DR GT SCH (05:47)
[2022-11-01] MEDS: HYDROGEN PEROXIDE 3% 118 ML BOTTLE TP SCH ×2 (08:26→19:11)
[2022-11-01] MEDS: ASPIRIN 81 MG TAB.CHEW GT SCH (08:36)
[2022-11-01] MEDS: CLOPIDOGREL 75 MG TABLET GT SCH (08:38)
[2022-11-01] MEDS: SODIUM CHLORIDE 1,000 MG TABLET GT SCH ×3 (08:38→16:33)
[2022-11-01] MEDS: VITAMINS A AND D OINT 42 GM TUBE TP SCH ×2 (08:38→20:57)
[2022-11-01] MEDS: METOPROLOL TARTRATE 25 MG TABLET GT SCH ×2 (08:38→20:56)
[2022-11-01] MEDS: REMEDY ESSENTIAL ZINC PASTE 113 GM TP SCH ×2 (08:38→20:57)
[2022-11-01] MEDS: ACIDOPHILUS/BULGARICUS CHEW TAB GT SCH ×2 (08:38→20:56)
[2022-11-01] MEDS: LOSARTAN POTASSIUM 25 MG TABLET GT SCH (08:38)
[2022-11-01] MEDS: ATORVASTATIN 20 MG TABLET GT SCH (20:56)
[2022-11-01] MEDS: MULTIVIT, IRON, MIN NO. 8, FA TABLET GT SCH (20:56)
[2022-11-01] MEDS: NUTRISOURCE FIBER 4 GM PACKET GT SCH (20:56)
[2022-11-02] VITALS (10 sets, daily range): TEMP 97–97.6; O2SAT 97–99
[2022-11-02] MEDS: VITAL AF 1.2 1,000 ML LIQUID GT PRN (00:50)
[2022-11-02] MEDS: ALBUTEROL SULFATE 2.5 MG/3 ML NEBU NEB SCH ×4 (01:17→19:12)
[2022-11-02] MEDS: BACLOFEN 10 MG TABLET GT SCH ×3 (05:28→21:53)
[2022-11-02] MEDS: OMEPRAZOLE 20 MG CAPSULE.DR GT SCH ×2 (05:28→18:11)
[2022-11-02] MEDS: ACIDOPHILUS/BULGARICUS CHEW TAB GT SCH ×2 (08:56→20:32)
[2022-11-02] MEDS: LOSARTAN POTASSIUM 25 MG TABLET GT SCH (08:56)
[2022-11-02] MEDS: ASPIRIN 81 MG TAB.CHEW GT SCH (08:56)
[2022-11-02] MEDS: REMEDY ESSENTIAL ZINC PASTE 113 GM TP SCH ×2 (08:57→20:33)
[2022-11-02] MEDS: SODIUM CHLORIDE 1,000 MG TABLET GT SCH ×3 (08:57→17:36)
[2022-11-02] MEDS: METOPROLOL TARTRATE 25 MG TABLET GT SCH ×2 (08:57→20:33)
[2022-11-02] MEDS: CLOPIDOGREL 75 MG TABLET GT SCH (08:57)
[2022-11-02] MEDS: VITAMINS A AND D OINT 42 GM TUBE TP SCH ×2 (08:58→20:33)
[2022-11-02] MEDS: HYDROGEN PEROXIDE 3% 118 ML BOTTLE TP SCH ×2 (10:20→19:12)
[2022-11-02] MEDS: diphenhydrAMINE 25 MG/10 ML UDC GT PRN (18:33)
[2022-11-02] MEDS: ATORVASTATIN 20 MG TABLET GT SCH (20:32)
[2022-11-02] MEDS: NUTRISOURCE FIBER 4 GM PACKET GT SCH (20:33)
[2022-11-03] VITALS (10 sets, daily range): TEMP 97.2–98.4; O2SAT 97–99
[2022-11-03] MEDS: VITAL AF 1.2 1,000 ML LIQUID GT PRN (01:25)
[2022-11-03] MEDS: ALBUTEROL SULFATE 2.5 MG/3 ML NEBU NEB SCH ×4 (01:46→19:40)
[2022-11-03] MEDS: BACLOFEN 10 MG TABLET GT SCH ×3 (06:09→22:07)
[2022-11-03] MEDS: OMEPRAZOLE 20 MG CAPSULE.DR GT SCH ×2 (06:09→17:13)
[2022-11-03] MEDS: HYDROGEN PEROXIDE 3% 118 ML BOTTLE TP SCH ×2 (07:14→21:29)
[2022-11-03] MEDS: ACIDOPHILUS/BULGARICUS CHEW TAB GT SCH ×2 (09:55→20:51)
[2022-11-03] MEDS: LOSARTAN POTASSIUM 25 MG TABLET GT SCH (09:55)
[2022-11-03] MEDS: ASPIRIN 81 MG TAB.CHEW GT SCH (09:55)
[2022-11-03] MEDS: REMEDY ESSENTIAL ZINC PASTE 113 GM TP SCH ×2 (09:56→20:52)
[2022-11-03] MEDS: SODIUM CHLORIDE 1,000 MG TABLET GT SCH ×3 (09:56→17:13)
[2022-11-03] MEDS: METOPROLOL TARTRATE 25 MG TABLET GT SCH ×2 (09:56→20:52)
[2022-11-03] MEDS: CLOPIDOGREL 75 MG TABLET GT SCH (09:56)
[2022-11-03] MEDS: VITAMINS A AND D OINT 42 GM TUBE TP SCH ×2 (09:56→20:52)
[2022-11-03] MEDS: ATORVASTATIN 20 MG TABLET GT SCH (20:51)
[2022-11-03] MEDS: NUTRISOURCE FIBER 4 GM PACKET GT SCH (20:52)
[2022-11-03] MEDS: MULTIVIT, IRON, MIN NO. 8, FA TABLET GT SCH (20:52)
[2022-11-04] VITALS (10 sets, daily range): TEMP 97.2–97.8; O2SAT 98–99
[2022-11-04] MEDS: VITAL AF 1.2 1,000 ML LIQUID GT PRN (01:14)
[2022-11-04] MEDS: ALBUTEROL SULFATE 2.5 MG/3 ML NEBU NEB SCH ×4 (01:24→19:06)
[2022-11-04] MEDS: OMEPRAZOLE 20 MG CAPSULE.DR GT SCH ×2 (05:58→17:56)
[2022-11-04] MEDS: BACLOFEN 10 MG TABLET GT SCH ×3 (05:58→21:33)
[2022-11-04] MEDS: HYDROGEN PEROXIDE 3% 118 ML BOTTLE TP SCH ×2 (07:53→19:06)
[2022-11-04] MEDS: ASPIRIN 81 MG TAB.CHEW GT SCH (08:41)
[2022-11-04] MEDS: ACIDOPHILUS/BULGARICUS CHEW TAB GT SCH ×2 (08:42→20:31)
[2022-11-04] MEDS: VITAMINS A AND D OINT 42 GM TUBE TP SCH ×2 (08:42→20:32)
[2022-11-04] MEDS: LOSARTAN POTASSIUM 25 MG TABLET GT SCH (08:42)
[2022-11-04] MEDS: SODIUM CHLORIDE 1,000 MG TABLET GT SCH ×3 (08:42→17:31)
[2022-11-04] MEDS: CLOPIDOGREL 75 MG TABLET GT SCH (08:42)
[2022-11-04] MEDS: REMEDY ESSENTIAL ZINC PASTE 113 GM TP SCH ×2 (08:42→20:32)
[2022-11-04] MEDS: METOPROLOL TARTRATE 25 MG TABLET GT SCH ×2 (08:42→21:32)
[2022-11-04] MEDS: ATORVASTATIN 20 MG TABLET GT SCH (20:31)
[2022-11-04] MEDS: NUTRISOURCE FIBER 4 GM PACKET GT SCH (20:32)
[2022-11-05] VITALS (11 sets, daily range): BP systolic 123–128; BP diastolic 52–63; TEMP 97.3–98.6; O2SAT 96–99
[2022-11-05] MEDS: ALBUTEROL SULFATE 2.5 MG/3 ML NEBU NEB SCH ×4 (01:29→19:08)
[2022-11-05] MEDS: BACLOFEN 10 MG TABLET GT SCH ×3 (06:25→22:32)
[2022-11-05] MEDS: OMEPRAZOLE 20 MG CAPSULE.DR GT SCH ×2 (06:25→18:31)
[2022-11-05] MEDS: HYDROGEN PEROXIDE 3% 118 ML BOTTLE TP SCH ×2 (08:10→19:08)
[2022-11-05] MEDS: ASPIRIN 81 MG TAB.CHEW GT SCH (09:46)
[2022-11-05] MEDS: ACIDOPHILUS/BULGARICUS CHEW TAB GT SCH ×2 (09:47→21:00)
[2022-11-05] MEDS: METOPROLOL TARTRATE 25 MG TABLET GT SCH ×2 (09:50→20:41)
[2022-11-05] MEDS: REMEDY ESSENTIAL ZINC PASTE 113 GM TP SCH ×2 (09:50→20:41)
[2022-11-05] MEDS: CLOPIDOGREL 75 MG TABLET GT SCH (09:50)
[2022-11-05] MEDS: SODIUM CHLORIDE 1,000 MG TABLET GT SCH ×3 (09:50→17:00)
[2022-11-05] MEDS: LOSARTAN POTASSIUM 25 MG TABLET GT SCH (09:50)
[2022-11-05] MEDS: VITAMINS A AND D OINT 42 GM TUBE TP SCH ×2 (09:51→20:41)
[2022-11-05] MEDS: NUTRISOURCE FIBER 4 GM PACKET GT SCH (20:41)
[2022-11-05] MEDS: MULTIVIT, IRON, MIN NO. 8, FA TABLET GT SCH (20:41)
[2022-11-05] MEDS: ATORVASTATIN 20 MG TABLET GT SCH (21:00)
[2022-11-06] VITALS (10 sets, daily range): TEMP 97.6–98.2; O2SAT 98–99
[2022-11-06] MEDS: ALBUTEROL SULFATE 2.5 MG/3 ML NEBU NEB SCH ×4 (01:10→19:20)
[2022-11-06] MEDS: BACLOFEN 10 MG TABLET GT SCH ×3 (06:01→22:00)
[2022-11-06] MEDS: OMEPRAZOLE 20 MG CAPSULE.DR GT SCH ×2 (06:02→17:54)
[2022-11-06] MEDS: ASPIRIN 81 MG TAB.CHEW GT SCH (08:26)
[2022-11-06] MEDS: ACIDOPHILUS/BULGARICUS CHEW TAB GT SCH ×2 (08:31→20:48)
[2022-11-06] MEDS: METOPROLOL TARTRATE 25 MG TABLET GT SCH ×2 (08:31→20:48)
[2022-11-06] MEDS: LOSARTAN POTASSIUM 25 MG TABLET GT SCH (08:31)
[2022-11-06] MEDS: CLOPIDOGREL 75 MG TABLET GT SCH (08:32)
[2022-11-06] MEDS: SODIUM CHLORIDE 1,000 MG TABLET GT SCH ×3 (08:32→17:54)
[2022-11-06] MEDS: REMEDY ESSENTIAL ZINC PASTE 113 GM TP SCH ×2 (08:32→20:48)
[2022-11-06] MEDS: VITAMINS A AND D OINT 42 GM TUBE TP SCH ×2 (08:32→20:48)
[2022-11-06] MEDS: HYDROGEN PEROXIDE 3% 118 ML BOTTLE TP SCH ×2 (10:20→19:20)
[2022-11-06] MEDS: diphenhydrAMINE 25 MG/10 ML UDC GT PRN (18:34)
[2022-11-06] MEDS: ATORVASTATIN 20 MG TABLET GT SCH (20:48)
[2022-11-06] MEDS: NUTRISOURCE FIBER 4 GM PACKET GT SCH (20:48)
[2022-11-07] VITALS (10 sets, daily range): TEMP 97–99.3; O2SAT 97–99
[2022-11-07] MEDS: VITAL AF 1.2 1,000 ML LIQUID GT PRN ×2 (00:31→22:22)
[2022-11-07] MEDS: ALBUTEROL SULFATE 2.5 MG/3 ML NEBU NEB SCH ×4 (01:20→19:22)
[2022-11-07] MEDS: BACLOFEN 10 MG TABLET GT SCH ×3 (06:06→21:50)
[2022-11-07] MEDS: OMEPRAZOLE 20 MG CAPSULE.DR GT SCH ×2 (06:06→17:24)
[2022-11-07] MEDS: HYDROGEN PEROXIDE 3% 118 ML BOTTLE TP SCH ×2 (08:10→19:22)
[2022-11-07] MEDS: ACIDOPHILUS/BULGARICUS CHEW TAB GT SCH ×2 (09:45→21:50)
[2022-11-07] MEDS: ASPIRIN 81 MG TAB.CHEW GT SCH (09:45)
[2022-11-07] MEDS: CLOPIDOGREL 75 MG TABLET GT SCH (09:45)
[2022-11-07] MEDS: SODIUM CHLORIDE 1,000 MG TABLET GT SCH ×3 (09:45→17:24)
[2022-11-07] MEDS: METOPROLOL TARTRATE 25 MG TABLET GT SCH ×2 (09:45→21:00)
[2022-11-07] MEDS: REMEDY ESSENTIAL ZINC PASTE 113 GM TP SCH ×2 (09:45→21:50)
[2022-11-07] MEDS: VITAMINS A AND D OINT 42 GM TUBE TP SCH ×2 (09:45→21:50)
[2022-11-07] MEDS: LOSARTAN POTASSIUM 25 MG TABLET GT SCH (09:45)
[2022-11-07] MEDS: ATORVASTATIN 20 MG TABLET GT SCH (21:50)
[2022-11-07] MEDS: MULTIVIT, IRON, MIN NO. 8, FA TABLET GT SCH (21:50)
[2022-11-07] MEDS: NUTRISOURCE FIBER 4 GM PACKET GT SCH (21:50)
[2022-11-08] VITALS (10 sets, daily range): TEMP 97.5–98.2; O2SAT 97–99
[2022-11-08] MEDS: ALBUTEROL SULFATE 2.5 MG/3 ML NEBU NEB SCH ×4 (01:34→19:50)
[2022-11-08] MEDS: BACLOFEN 10 MG TABLET GT SCH ×3 (06:02→22:09)
[2022-11-08] MEDS: OMEPRAZOLE 20 MG CAPSULE.DR GT SCH ×2 (06:02→17:03)
[2022-11-08] MEDS: HYDROGEN PEROXIDE 3% 118 ML BOTTLE TP SCH ×2 (08:10→20:52)
[2022-11-08] MEDS: ASPIRIN 81 MG TAB.CHEW GT SCH (08:38)
[2022-11-08] MEDS: REMEDY ESSENTIAL ZINC PASTE 113 GM TP SCH ×2 (08:43→20:31)
[2022-11-08] MEDS: VITAMINS A AND D OINT 42 GM TUBE TP SCH ×2 (08:43→20:31)
[2022-11-08] MEDS: ACIDOPHILUS/BULGARICUS CHEW TAB GT SCH ×2 (08:43→20:31)
[2022-11-08] MEDS: CLOPIDOGREL 75 MG TABLET GT SCH (08:51)
[2022-11-08] MEDS: LOSARTAN POTASSIUM 25 MG TABLET GT SCH (08:52)
[2022-11-08] MEDS: SODIUM CHLORIDE 1,000 MG TABLET GT SCH ×3 (08:52→17:03)
[2022-11-08] MEDS: METOPROLOL TARTRATE 25 MG TABLET GT SCH ×2 (08:53→21:12)
[2022-11-08] MEDS: VITAL AF 1.2 1,000 ML LIQUID GT PRN (17:08)
[2022-11-08] MEDS: NUTRISOURCE FIBER 4 GM PACKET GT SCH (20:31)
[2022-11-08] MEDS: ATORVASTATIN 20 MG TABLET GT SCH (21:11)
[2022-11-09] VITALS (9 sets, daily range): TEMP 97.6–98.2; O2SAT 97–99
[2022-11-09] MEDS: ALBUTEROL SULFATE 2.5 MG/3 ML NEBU NEB SCH ×4 (01:54→19:50)
[2022-11-09] MEDS: BACLOFEN 10 MG TABLET GT SCH ×3 (05:04→21:49)
[2022-11-09] MEDS: OMEPRAZOLE 20 MG CAPSULE.DR GT SCH ×2 (05:04→18:29)
[2022-11-09] MEDS: HYDROGEN PEROXIDE 3% 118 ML BOTTLE TP SCH ×2 (07:50→20:54)
[2022-11-09] MEDS: ASPIRIN 81 MG TAB.CHEW GT SCH (09:00)
[2022-11-09] MEDS: SODIUM CHLORIDE 1,000 MG TABLET GT SCH ×3 (09:00→17:00)
[2022-11-09] MEDS: METOPROLOL TARTRATE 25 MG TABLET GT SCH ×2 (09:00→21:49)
[2022-11-09] MEDS: VITAMINS A AND D OINT 42 GM TUBE TP SCH ×2 (09:00→21:49)
[2022-11-09] MEDS: LOSARTAN POTASSIUM 25 MG TABLET GT SCH (09:00)
[2022-11-09] MEDS: REMEDY ESSENTIAL ZINC PASTE 113 GM TP SCH ×2 (09:00→21:49)
[2022-11-09] MEDS: CLOPIDOGREL 75 MG TABLET GT SCH (09:00)
[2022-11-09] MEDS: ACIDOPHILUS/BULGARICUS CHEW TAB GT SCH ×2 (09:00→21:48)
[2022-11-09] MEDS: VITAL AF 1.2 1,000 ML LIQUID GT PRN (16:29)
[2022-11-09] MEDS: NUTRISOURCE FIBER 4 GM PACKET GT SCH (21:49)
[2022-11-09] MEDS: MULTIVIT, IRON, MIN NO. 8, FA TABLET GT SCH (21:49)
[2022-11-09] MEDS: ATORVASTATIN 20 MG TABLET GT SCH (21:49)
[2022-11-10] VITALS (10 sets, daily range): TEMP 97–98.4; O2SAT 97–99
[2022-11-10] MEDS: ALBUTEROL SULFATE 2.5 MG/3 ML NEBU NEB SCH ×4 (01:47→20:10)
[2022-11-10] MEDS: BACLOFEN 10 MG TABLET GT SCH ×3 (05:11→21:42)
[2022-11-10] MEDS: OMEPRAZOLE 20 MG CAPSULE.DR GT SCH ×2 (05:11→17:22)
[2022-11-10] MEDS: HYDROGEN PEROXIDE 3% 118 ML BOTTLE TP SCH ×2 (07:25→21:16)
[2022-11-10] MEDS: LOSARTAN POTASSIUM 25 MG TABLET GT SCH (09:44)
[2022-11-10] MEDS: ASPIRIN 81 MG TAB.CHEW GT SCH (09:44)
[2022-11-10] MEDS: ACIDOPHILUS/BULGARICUS CHEW TAB GT SCH ×2 (09:44→20:34)
[2022-11-10] MEDS: METOPROLOL TARTRATE 25 MG TABLET GT SCH ×2 (09:46→20:45)
[2022-11-10] MEDS: VITAMINS A AND D OINT 42 GM TUBE TP SCH ×2 (09:46→20:45)
[2022-11-10] MEDS: SODIUM CHLORIDE 1,000 MG TABLET GT SCH ×3 (09:46→17:22)
[2022-11-10] MEDS: CLOPIDOGREL 75 MG TABLET GT SCH (09:46)
[2022-11-10] MEDS: REMEDY ESSENTIAL ZINC PASTE 113 GM TP SCH ×2 (09:46→20:36)
[2022-11-10] MEDS: VITAL AF 1.2 1,000 ML LIQUID GT PRN (12:21)
[2022-11-10] MEDS: diphenhydrAMINE 25 MG/10 ML UDC GT PRN (14:34)
[2022-11-10] MEDS: NUTRISOURCE FIBER 4 GM PACKET GT SCH (20:36)
[2022-11-10] MEDS: ATORVASTATIN 20 MG TABLET GT SCH (20:44)
[2022-11-11] VITALS (10 sets, daily range): TEMP 97.4; O2SAT 96–99
[2022-11-11] MEDS: ALBUTEROL SULFATE 2.5 MG/3 ML NEBU NEB SCH ×4 (01:47→19:28)
[2022-11-11] MEDS: OMEPRAZOLE 20 MG CAPSULE.DR GT SCH ×2 (05:53→17:11)
[2022-11-11] MEDS: BACLOFEN 10 MG TABLET GT SCH ×3 (05:53→21:17)
[2022-11-11] MEDS: HYDROGEN PEROXIDE 3% 118 ML BOTTLE TP SCH ×2 (09:46→19:29)
[2022-11-11] MEDS: ASPIRIN 81 MG TAB.CHEW GT SCH (09:57)
[2022-11-11] MEDS: LOSARTAN POTASSIUM 25 MG TABLET GT SCH (09:58)
[2022-11-11] MEDS: ACIDOPHILUS/BULGARICUS CHEW TAB GT SCH ×2 (09:58→21:16)
[2022-11-11] MEDS: VITAMINS A AND D OINT 42 GM TUBE TP SCH ×2 (09:59→21:17)
[2022-11-11] MEDS: METOPROLOL TARTRATE 25 MG TABLET GT SCH ×2 (09:59→21:17)
[2022-11-11] MEDS: CLOPIDOGREL 75 MG TABLET GT SCH (09:59)
[2022-11-11] MEDS: REMEDY ESSENTIAL ZINC PASTE 113 GM TP SCH ×2 (09:59→21:17)
[2022-11-11] MEDS: SODIUM CHLORIDE 1,000 MG TABLET GT SCH ×3 (09:59→17:11)
[2022-11-11] MEDS: VITAL AF 1.2 1,000 ML LIQUID GT PRN (12:35)
[2022-11-11] MEDS: ATORVASTATIN 20 MG TABLET GT SCH (21:16)
[2022-11-11] MEDS: MULTIVIT, IRON, MIN NO. 8, FA TABLET GT SCH (21:17)
[2022-11-11] MEDS: NUTRISOURCE FIBER 4 GM PACKET GT SCH (21:17)
[2022-11-12] VITALS (10 sets, daily range): TEMP 97.8–98.2; O2SAT 96–99
[2022-11-12] MEDS: ALBUTEROL SULFATE 2.5 MG/3 ML NEBU NEB SCH ×4 (00:45→20:26)
[2022-11-12] MEDS: BACLOFEN 10 MG TABLET GT SCH ×3 (05:28→21:06)
[2022-11-12] MEDS: OMEPRAZOLE 20 MG CAPSULE.DR GT SCH ×2 (05:28→17:17)
[2022-11-12] MEDS: ASPIRIN 81 MG TAB.CHEW GT SCH (09:40)
[2022-11-12] MEDS: HYDROGEN PEROXIDE 3% 118 ML BOTTLE TP SCH ×2 (09:41→20:26)
[2022-11-12] MEDS: ACIDOPHILUS/BULGARICUS CHEW TAB GT SCH ×2 (09:41→21:05)
[2022-11-12] MEDS: VITAMINS A AND D OINT 42 GM TUBE TP SCH ×2 (09:41→21:06)
[2022-11-12] MEDS: REMEDY ESSENTIAL ZINC PASTE 113 GM TP SCH ×2 (09:41→21:06)
[2022-11-12] MEDS: LOSARTAN POTASSIUM 25 MG TABLET GT SCH (09:45)
[2022-11-12] MEDS: CLOPIDOGREL 75 MG TABLET GT SCH (09:46)
[2022-11-12] MEDS: METOPROLOL TARTRATE 25 MG TABLET GT SCH ×2 (09:46→21:06)
[2022-11-12] MEDS: SODIUM CHLORIDE 1,000 MG TABLET GT SCH ×3 (09:46→17:16)
[2022-11-12] MEDS: VITAL AF 1.2 1,000 ML LIQUID GT PRN (11:08)
[2022-11-12] MEDS: ATORVASTATIN 20 MG TABLET GT SCH (21:05)
[2022-11-12] MEDS: NUTRISOURCE FIBER 4 GM PACKET GT SCH (21:06)
[2022-11-13] VITALS (10 sets, daily range): TEMP 97.5–97.9; O2SAT 98–99
[2022-11-13] MEDS: ALBUTEROL SULFATE 2.5 MG/3 ML NEBU NEB SCH ×4 (01:07→19:08)
[2022-11-13] MEDS: OMEPRAZOLE 20 MG CAPSULE.DR GT SCH ×2 (05:51→17:25)
[2022-11-13] MEDS: VITAL AF 1.2 1,000 ML LIQUID GT PRN (05:51)
[2022-11-13] MEDS: BACLOFEN 10 MG TABLET GT SCH ×3 (05:51→21:38)
[2022-11-13] MEDS: HYDROGEN PEROXIDE 3% 118 ML BOTTLE TP SCH ×2 (07:37→19:08)
[2022-11-13] MEDS: METOPROLOL TARTRATE 25 MG TABLET GT SCH ×2 (09:00→21:38)
[2022-11-13] MEDS: ACIDOPHILUS/BULGARICUS CHEW TAB GT SCH ×2 (09:46→21:38)
[2022-11-13] MEDS: ASPIRIN 81 MG TAB.CHEW GT SCH (09:46)
[2022-11-13] MEDS: VITAMINS A AND D OINT 42 GM TUBE TP SCH ×2 (09:47→21:38)
[2022-11-13] MEDS: REMEDY ESSENTIAL ZINC PASTE 113 GM TP SCH ×2 (09:47→21:38)
[2022-11-13] MEDS: LOSARTAN POTASSIUM 25 MG TABLET GT SCH (09:49)
[2022-11-13] MEDS: SODIUM CHLORIDE 1,000 MG TABLET GT SCH ×3 (09:53→17:25)
[2022-11-13] MEDS: CLOPIDOGREL 75 MG TABLET GT SCH (09:53)
[2022-11-13] MEDS: NUTRISOURCE FIBER 4 GM PACKET GT SCH (21:38)
[2022-11-13] MEDS: MULTIVIT, IRON, MIN NO. 8, FA TABLET GT SCH (21:38)
[2022-11-13] MEDS: ATORVASTATIN 20 MG TABLET GT SCH (21:38)
[2022-11-14] VITALS (10 sets, daily range): TEMP 97.5–97.7; O2SAT 98–99
[2022-11-14] MEDS: ALBUTEROL SULFATE 2.5 MG/3 ML NEBU NEB SCH ×4 (00:55→19:37)
[2022-11-14] MEDS: VITAL AF 1.2 1,000 ML LIQUID GT PRN (02:24)
[2022-11-14] MEDS: OMEPRAZOLE 20 MG CAPSULE.DR GT SCH ×2 (06:04→17:02)
[2022-11-14] MEDS: BACLOFEN 10 MG TABLET GT SCH ×3 (06:04→21:55)
[2022-11-14] MEDS: HYDROGEN PEROXIDE 3% 118 ML BOTTLE TP SCH ×2 (07:53→19:37)
[2022-11-14] MEDS: METOPROLOL TARTRATE 25 MG TABLET GT SCH ×2 (09:00→20:26)
[2022-11-14] MEDS: ASPIRIN 81 MG TAB.CHEW GT SCH (09:09)
[2022-11-14] MEDS: ACIDOPHILUS/BULGARICUS CHEW TAB GT SCH ×2 (09:10→20:25)
[2022-11-14] MEDS: LOSARTAN POTASSIUM 25 MG TABLET GT SCH (09:10)
[2022-11-14] MEDS: CLOPIDOGREL 75 MG TABLET GT SCH (09:11)
[2022-11-14] MEDS: SODIUM CHLORIDE 1,000 MG TABLET GT SCH ×3 (09:11→16:19)
[2022-11-14] MEDS: REMEDY ESSENTIAL ZINC PASTE 113 GM TP SCH ×2 (09:11→20:26)
[2022-11-14] MEDS: VITAMINS A AND D OINT 42 GM TUBE TP SCH ×2 (09:11→20:26)
[2022-11-14] MEDS: ATORVASTATIN 20 MG TABLET GT SCH (20:25)
[2022-11-14] MEDS: NUTRISOURCE FIBER 4 GM PACKET GT SCH (20:26)
[2022-11-14] MEDS: ACETAMINOPHEN 650 MG/20 ML UDC- SA PATIENTS-PAIN ONLY GT PRN (20:27)
[2022-11-15] VITALS (10 sets, daily range): TEMP 97.4–97.6; O2SAT 97–99
[2022-11-15] MEDS: ALBUTEROL SULFATE 2.5 MG/3 ML NEBU NEB SCH ×4 (00:40→19:16)
[2022-11-15] MEDS: OMEPRAZOLE 20 MG CAPSULE.DR GT SCH ×2 (06:14→17:02)
[2022-11-15] MEDS: BACLOFEN 10 MG TABLET GT SCH ×3 (06:14→21:06)
[2022-11-15 06:58] LABS: BASOPHILS % (AUTO) 0.9 % (0.0-2.0); EOSINOPHILS # (AUTO) 0.4 K/uL (0.0-0.7); EOSINOPHILS % (AUTO) 10.2 % (0.0-7.0); HEMATOCRIT 36.4 % (36.7-47.1); HEMOGLOBIN 12.3 g/dL (12.5-16.3); LYMPHOCYTES # (AUTO) 1.4 K/uL (0.8-4.8); MEAN CORPUSCULAR HEMOGLOBIN 31.4 uug (23.8-33.4); MEAN CORPUSCULAR HGB CONC 34 g/dL (32.5-36.3); MEAN CORPUSCULAR VOLUME 93.4 fL (73.0-96.2); MONOCYTES # (AUTO) 0.4 K/uL (0.1-1.30); MONOCYTES % (AUTO) 8.9 % (0.0-11.0); NEUTROPHILS # (AUTO) 2.2 K/uL (1.8-8.9); PLATELET COUNT (AUTO) 248 K/uL (152-348); RED CELL DISTRIBUTION WIDTH 13.4 % (12.1-16.2); WHITE BLOOD COUNT (AUTO) 4.4 K/uL (3.6-10.2)
[2022-11-15 07:09] LABS: CREATININE 0.6 mg/dL (0.6-1.3); MAGNESIUM 2.1 mg/dL (1.8-2.4); PHOSPHOROUS 3.2 mg/dL (2.5-4.9); POTASSIUM 4.1 mmol/L (3.5-5.1)
[2022-11-15 07:10] LABS: DIFFERENTIAL COMMENT 1
[2022-11-15] MEDS: HYDROGEN PEROXIDE 3% 118 ML BOTTLE TP SCH ×2 (08:12→19:16)
[2022-11-15] MEDS: ASPIRIN 81 MG TAB.CHEW GT SCH (08:30)
[2022-11-15] MEDS: ACIDOPHILUS/BULGARICUS CHEW TAB GT SCH ×2 (08:31→21:05)
[2022-11-15] MEDS: LOSARTAN POTASSIUM 25 MG TABLET GT SCH (08:31)
[2022-11-15] MEDS: REMEDY ESSENTIAL ZINC PASTE 113 GM TP SCH ×2 (08:32→21:06)
[2022-11-15] MEDS: VITAMINS A AND D OINT 42 GM TUBE TP SCH ×2 (08:32→21:06)
[2022-11-15] MEDS: METOPROLOL TARTRATE 25 MG TABLET GT SCH ×2 (08:32→21:00)
[2022-11-15] MEDS: CLOPIDOGREL 75 MG TABLET GT SCH (08:32)
[2022-11-15] MEDS: SODIUM CHLORIDE 1,000 MG TABLET GT SCH ×3 (08:32→17:02)
[2022-11-15] MEDS: ATORVASTATIN 20 MG TABLET GT SCH (21:05)
[2022-11-15] MEDS: NUTRISOURCE FIBER 4 GM PACKET GT SCH (21:06)
[2022-11-15] MEDS: MULTIVIT, IRON, MIN NO. 8, FA TABLET GT SCH (21:06)
[2022-11-16] VITALS (10 sets, daily range): TEMP 97.6–98.1; O2SAT 97–99
[2022-11-16] MEDS: ALBUTEROL SULFATE 2.5 MG/3 ML NEBU NEB SCH ×4 (01:33→19:50)
[2022-11-16] MEDS: VITAL AF 1.2 1,000 ML LIQUID GT PRN (01:51)
[2022-11-16] MEDS: BACLOFEN 10 MG TABLET GT SCH ×3 (05:24→21:03)
[2022-11-16] MEDS: OMEPRAZOLE 20 MG CAPSULE.DR GT SCH ×2 (05:24→17:46)
[2022-11-16] MEDS: HYDROGEN PEROXIDE 3% 118 ML BOTTLE TP SCH ×2 (08:10→20:40)
[2022-11-16] MEDS: METOPROLOL TARTRATE 25 MG TABLET GT SCH ×2 (09:00→21:03)
[2022-11-16] MEDS: ASPIRIN 81 MG TAB.CHEW GT SCH (09:44)
[2022-11-16] MEDS: LOSARTAN POTASSIUM 25 MG TABLET GT SCH (09:44)
[2022-11-16] MEDS: SODIUM CHLORIDE 1,000 MG TABLET GT SCH ×3 (09:44→16:39)
[2022-11-16] MEDS: ACIDOPHILUS/BULGARICUS CHEW TAB GT SCH ×2 (09:44→21:02)
[2022-11-16] MEDS: CLOPIDOGREL 75 MG TABLET GT SCH (09:44)
[2022-11-16] MEDS: VITAMINS A AND D OINT 42 GM TUBE TP SCH ×2 (09:45→21:03)
[2022-11-16] MEDS: REMEDY ESSENTIAL ZINC PASTE 113 GM TP SCH ×2 (09:45→21:03)
[2022-11-16] MEDS: ATORVASTATIN 20 MG TABLET GT SCH (21:02)
[2022-11-16] MEDS: NUTRISOURCE FIBER 4 GM PACKET GT SCH (21:03)
[2022-11-17] VITALS (10 sets, daily range): TEMP 97.6–98.6; O2SAT 97–99
[2022-11-17] MEDS: ALBUTEROL SULFATE 2.5 MG/3 ML NEBU NEB SCH ×4 (01:32→19:40)
[2022-11-17] MEDS: VITAL AF 1.2 1,000 ML LIQUID GT PRN (01:39)
[2022-11-17] MEDS: BACLOFEN 10 MG TABLET GT SCH ×3 (05:53→22:12)
[2022-11-17] MEDS: OMEPRAZOLE 20 MG CAPSULE.DR GT SCH ×2 (05:53→17:19)
[2022-11-17] MEDS: HYDROGEN PEROXIDE 3% 118 ML BOTTLE TP SCH ×2 (08:15→20:31)
[2022-11-17] MEDS: ASPIRIN 81 MG TAB.CHEW GT SCH (09:00)
[2022-11-17] MEDS: METOPROLOL TARTRATE 25 MG TABLET GT SCH ×2 (09:00→20:48)
[2022-11-17] MEDS: ACIDOPHILUS/BULGARICUS CHEW TAB GT SCH ×2 (09:00→20:46)
[2022-11-17] MEDS: LOSARTAN POTASSIUM 25 MG TABLET GT SCH (09:00)
[2022-11-17] MEDS: VITAMINS A AND D OINT 42 GM TUBE TP SCH ×2 (09:01→20:48)
[2022-11-17] MEDS: REMEDY ESSENTIAL ZINC PASTE 113 GM TP SCH ×2 (09:01→20:48)
[2022-11-17] MEDS: CLOPIDOGREL 75 MG TABLET GT SCH (09:01)
[2022-11-17] MEDS: SODIUM CHLORIDE 1,000 MG TABLET GT SCH ×3 (09:01→17:19)
[2022-11-17] MEDS: ATORVASTATIN 20 MG TABLET GT SCH (20:46)
[2022-11-17] MEDS: MULTIVIT, IRON, MIN NO. 8, FA TABLET GT SCH (20:48)
[2022-11-17] MEDS: NUTRISOURCE FIBER 4 GM PACKET GT SCH (20:48)
[2022-11-18] VITALS (10 sets, daily range): TEMP 97.3–98.7; O2SAT 98–99
[2022-11-18] MEDS: ALBUTEROL SULFATE 2.5 MG/3 ML NEBU NEB SCH ×4 (01:31→19:21)
[2022-11-18] MEDS: OMEPRAZOLE 20 MG CAPSULE.DR GT SCH ×2 (05:55→18:26)
[2022-11-18] MEDS: BACLOFEN 10 MG TABLET GT SCH ×3 (05:55→22:10)
[2022-11-18] MEDS: HYDROGEN PEROXIDE 3% 118 ML BOTTLE TP SCH ×2 (07:48→21:27)
[2022-11-18] MEDS: LOSARTAN POTASSIUM 25 MG TABLET GT SCH (09:00)
[2022-11-18] MEDS: ASPIRIN 81 MG TAB.CHEW GT SCH (09:40)
[2022-11-18] MEDS: ACIDOPHILUS/BULGARICUS CHEW TAB GT SCH ×2 (09:40→20:34)
[2022-11-18] MEDS: REMEDY ESSENTIAL ZINC PASTE 113 GM TP SCH ×2 (09:41→20:34)
[2022-11-18] MEDS: METOPROLOL TARTRATE 25 MG TABLET GT SCH ×2 (09:41→21:00)
[2022-11-18] MEDS: SODIUM CHLORIDE 1,000 MG TABLET GT SCH ×3 (09:41→17:00)
[2022-11-18] MEDS: CLOPIDOGREL 75 MG TABLET GT SCH (09:41)
[2022-11-18] MEDS: VITAMINS A AND D OINT 42 GM TUBE TP SCH ×2 (09:42→20:34)
[2022-11-18] MEDS: diphenhydrAMINE 25 MG/10 ML UDC GT PRN (18:28)
[2022-11-18] MEDS: ATORVASTATIN 20 MG TABLET GT SCH (20:34)
[2022-11-18] MEDS: NUTRISOURCE FIBER 4 GM PACKET GT SCH (20:34)
[2022-11-19] VITALS (10 sets, daily range): TEMP 97.7–97.8; O2SAT 97–99
[2022-11-19] MEDS: VITAL AF 1.2 1,000 ML LIQUID GT PRN (00:45)
[2022-11-19] MEDS: ALBUTEROL SULFATE 2.5 MG/3 ML NEBU NEB SCH ×4 (01:06→20:27)
[2022-11-19] MEDS: OMEPRAZOLE 20 MG CAPSULE.DR GT SCH ×2 (05:46→17:17)
[2022-11-19] MEDS: BACLOFEN 10 MG TABLET GT SCH ×3 (05:46→22:30)
[2022-11-19] MEDS: HYDROGEN PEROXIDE 3% 118 ML BOTTLE TP SCH ×2 (07:41→20:27)
[2022-11-19] MEDS: ASPIRIN 81 MG TAB.CHEW GT SCH (09:10)
[2022-11-19] MEDS: METOPROLOL TARTRATE 25 MG TABLET GT SCH ×2 (09:31→21:00)
[2022-11-19] MEDS: ACIDOPHILUS/BULGARICUS CHEW TAB GT SCH ×2 (09:31→21:00)
[2022-11-19] MEDS: LOSARTAN POTASSIUM 25 MG TABLET GT SCH (09:31)
[2022-11-19] MEDS: CLOPIDOGREL 75 MG TABLET GT SCH (09:32)
[2022-11-19] MEDS: SODIUM CHLORIDE 1,000 MG TABLET GT SCH ×3 (09:32→17:16)
[2022-11-19] MEDS: REMEDY ESSENTIAL ZINC PASTE 113 GM TP SCH ×2 (09:32→21:00)
[2022-11-19] MEDS: VITAMINS A AND D OINT 42 GM TUBE TP SCH ×2 (09:32→21:00)
[2022-11-19] MEDS: ACETAMINOPHEN 650 MG/20 ML UDC- SA PATIENTS-PAIN ONLY GT PRN (17:20)
[2022-11-19] MEDS: MULTIVIT, IRON, MIN NO. 8, FA TABLET GT SCH (21:00)
[2022-11-19] MEDS: ATORVASTATIN 20 MG TABLET GT SCH (21:00)
[2022-11-19] MEDS: NUTRISOURCE FIBER 4 GM PACKET GT SCH (21:00)
[2022-11-20] VITALS (10 sets, daily range): TEMP 97.9–98.3; O2SAT 97–99
[2022-11-20] MEDS: ALBUTEROL SULFATE 2.5 MG/3 ML NEBU NEB SCH ×4 (01:07→19:19)
[2022-11-20] MEDS: OMEPRAZOLE 20 MG CAPSULE.DR GT SCH ×2 (05:15→17:28)
[2022-11-20] MEDS: BACLOFEN 10 MG TABLET GT SCH ×3 (05:15→22:16)
[2022-11-20] MEDS: HYDROGEN PEROXIDE 3% 118 ML BOTTLE TP SCH ×2 (07:26→19:19)
[2022-11-20] MEDS: ACIDOPHILUS/BULGARICUS CHEW TAB GT SCH ×2 (08:51→21:00)
[2022-11-20] MEDS: ASPIRIN 81 MG TAB.CHEW GT SCH (08:51)
[2022-11-20] MEDS: LOSARTAN POTASSIUM 25 MG TABLET GT SCH (08:51)
[2022-11-20] MEDS: METOPROLOL TARTRATE 25 MG TABLET GT SCH ×2 (08:52→21:59)
[2022-11-20] MEDS: CLOPIDOGREL 75 MG TABLET GT SCH (08:53)
[2022-11-20] MEDS: REMEDY ESSENTIAL ZINC PASTE 113 GM TP SCH ×2 (08:53→21:00)
[2022-11-20] MEDS: VITAMINS A AND D OINT 42 GM TUBE TP SCH ×2 (08:53→21:00)
[2022-11-20] MEDS: SODIUM CHLORIDE 1,000 MG TABLET GT SCH ×3 (08:53→17:28)
[2022-11-20] MEDS: NUTRISOURCE FIBER 4 GM PACKET GT SCH (21:00)
[2022-11-20] MEDS: ATORVASTATIN 20 MG TABLET GT SCH (21:58)
[2022-11-21] VITALS (9 sets, daily range): TEMP 98.4; O2SAT 97–99
[2022-11-21] MEDS: ALBUTEROL SULFATE 2.5 MG/3 ML NEBU NEB SCH ×4 (01:30→19:30)
[2022-11-21] MEDS ORDERED: BACLOFEN 10 MG TABLET ONE (01:32)
[2022-11-21] MEDS: OMEPRAZOLE 20 MG CAPSULE.DR GT SCH ×2 (05:31→17:40)
[2022-11-21] MEDS: BACLOFEN 10 MG TABLET GT SCH ×3 (05:31→21:20)
[2022-11-21] MEDS: HYDROGEN PEROXIDE 3% 118 ML BOTTLE TP SCH ×2 (08:06→20:32)
[2022-11-21] MEDS: LOSARTAN POTASSIUM 25 MG TABLET GT SCH (08:50)
[2022-11-21] MEDS: ASPIRIN 81 MG TAB.CHEW GT SCH (08:50)
[2022-11-21] MEDS: ACIDOPHILUS/BULGARICUS CHEW TAB GT SCH ×2 (08:50→20:24)
[2022-11-21] MEDS: METOPROLOL TARTRATE 25 MG TABLET GT SCH ×2 (08:51→20:24)
[2022-11-21] MEDS: CLOPIDOGREL 75 MG TABLET GT SCH (08:52)
[2022-11-21] MEDS: SODIUM CHLORIDE 1,000 MG TABLET GT SCH ×3 (08:52→17:40)
[2022-11-21] MEDS: REMEDY ESSENTIAL ZINC PASTE 113 GM TP SCH ×2 (08:52→20:25)
[2022-11-21] MEDS: VITAMINS A AND D OINT 42 GM TUBE TP SCH ×2 (08:52→20:25)
[2022-11-21] MEDS: ATORVASTATIN 20 MG TABLET GT SCH (20:24)
[2022-11-21] MEDS: NUTRISOURCE FIBER 4 GM PACKET GT SCH (20:24)
[2022-11-21] MEDS: MULTIVIT, IRON, MIN NO. 8, FA TABLET GT SCH (20:25)
[2022-11-22] VITALS (10 sets, daily range): TEMP 98.1; O2SAT 97–99
[2022-11-22] MEDS: ALBUTEROL SULFATE 2.5 MG/3 ML NEBU NEB SCH ×4 (01:24→19:38)
[2022-11-22] MEDS: OMEPRAZOLE 20 MG CAPSULE.DR GT SCH ×2 (05:17→17:52)
[2022-11-22] MEDS: BACLOFEN 10 MG TABLET GT SCH ×3 (05:17→22:59)
[2022-11-22] MEDS: HYDROGEN PEROXIDE 3% 118 ML BOTTLE TP SCH ×2 (07:22→21:00)
[2022-11-22] MEDS: ACIDOPHILUS/BULGARICUS CHEW TAB GT SCH ×2 (09:35→20:18)
[2022-11-22] MEDS: ASPIRIN 81 MG TAB.CHEW GT SCH (09:35)
[2022-11-22] MEDS: VITAMINS A AND D OINT 42 GM TUBE TP SCH ×2 (09:38→20:18)
[2022-11-22] MEDS: CLOPIDOGREL 75 MG TABLET GT SCH (09:38)
[2022-11-22] MEDS: SODIUM CHLORIDE 1,000 MG TABLET GT SCH ×3 (09:38→16:59)
[2022-11-22] MEDS: REMEDY ESSENTIAL ZINC PASTE 113 GM TP SCH ×2 (09:38→20:18)
[2022-11-22] MEDS: LOSARTAN POTASSIUM 25 MG TABLET GT SCH (09:40)
[2022-11-22] MEDS: METOPROLOL TARTRATE 25 MG TABLET GT SCH ×2 (09:40→20:18)
[2022-11-22] MEDS: diphenhydrAMINE 25 MG/10 ML UDC GT PRN (17:00)
[2022-11-22] MEDS: NUTRISOURCE FIBER 4 GM PACKET GT SCH (20:18)
[2022-11-22] MEDS: ATORVASTATIN 20 MG TABLET GT SCH (20:18)
[2022-11-23] VITALS (12 sets, daily range): BP systolic 131; BP diastolic 56; TEMP 97.9–98; O2SAT 98–99
[2022-11-23] MEDS: ALBUTEROL SULFATE 2.5 MG/3 ML NEBU NEB SCH ×4 (01:44→21:49)
[2022-11-23] MEDS: BACLOFEN 10 MG TABLET GT SCH ×3 (05:14→21:59)
[2022-11-23] MEDS: OMEPRAZOLE 20 MG CAPSULE.DR GT SCH ×2 (05:14→17:09)
[2022-11-23] MEDS: HYDROGEN PEROXIDE 3% 118 ML BOTTLE TP SCH ×2 (07:41→21:50)
[2022-11-23] MEDS: LOSARTAN POTASSIUM 25 MG TABLET GT SCH (08:33)
[2022-11-23] MEDS: ASPIRIN 81 MG TAB.CHEW GT SCH (08:33)
[2022-11-23] MEDS: METOPROLOL TARTRATE 25 MG TABLET GT SCH ×2 (08:34→21:58)
[2022-11-23] MEDS: ACIDOPHILUS/BULGARICUS CHEW TAB GT SCH ×2 (08:34→21:57)
[2022-11-23] MEDS: SODIUM CHLORIDE 1,000 MG TABLET GT SCH ×3 (08:35→17:09)
[2022-11-23] MEDS: REMEDY ESSENTIAL ZINC PASTE 113 GM TP SCH ×2 (08:35→21:58)
[2022-11-23] MEDS: CLOPIDOGREL 75 MG TABLET GT SCH (08:35)
[2022-11-23] MEDS: VITAMINS A AND D OINT 42 GM TUBE TP SCH ×2 (08:36→21:59)
[2022-11-23] MEDS: ATORVASTATIN 20 MG TABLET GT SCH (21:57)
[2022-11-23] MEDS: MULTIVIT, IRON, MIN NO. 8, FA TABLET GT SCH (21:58)
[2022-11-23] MEDS: NUTRISOURCE FIBER 4 GM PACKET GT SCH (21:58)
[2022-11-24] VITALS (11 sets, daily range): TEMP 98; O2SAT 96–99
[2022-11-24] MEDS: ALBUTEROL SULFATE 2.5 MG/3 ML NEBU NEB SCH ×4 (02:00→20:06)
[2022-11-24] MEDS: OMEPRAZOLE 20 MG CAPSULE.DR GT SCH ×2 (05:32→17:44)
[2022-11-24] MEDS: BACLOFEN 10 MG TABLET GT SCH ×3 (05:32→21:51)
[2022-11-24] MEDS: VITAL AF 1.2 1,000 ML LIQUID GT PRN (07:37)
[2022-11-24] MEDS: HYDROGEN PEROXIDE 3% 118 ML BOTTLE TP SCH ×2 (07:59→20:06)
[2022-11-24] MEDS: CLOPIDOGREL 75 MG TABLET GT SCH (09:00)
[2022-11-24] MEDS: ACIDOPHILUS/BULGARICUS CHEW TAB GT SCH ×2 (09:00→21:48)
[2022-11-24] MEDS: METOPROLOL TARTRATE 25 MG TABLET GT SCH ×2 (09:00→21:49)
[2022-11-24] MEDS: SODIUM CHLORIDE 1,000 MG TABLET GT SCH ×3 (09:00→17:44)
[2022-11-24] MEDS: VITAMINS A AND D OINT 42 GM TUBE TP SCH ×2 (09:00→21:49)
[2022-11-24] MEDS: REMEDY ESSENTIAL ZINC PASTE 113 GM TP SCH ×2 (09:00→21:49)
[2022-11-24] MEDS: ASPIRIN 81 MG TAB.CHEW GT SCH (09:00)
[2022-11-24] MEDS: LOSARTAN POTASSIUM 25 MG TABLET GT SCH (09:00)
[2022-11-24] MEDS: ATORVASTATIN 20 MG TABLET GT SCH (21:48)
[2022-11-24] MEDS: NUTRISOURCE FIBER 4 GM PACKET GT SCH (21:49)
[2022-11-25] VITALS (10 sets, daily range): TEMP 97.6–98; O2SAT 96–99
[2022-11-25] MEDS: ALBUTEROL SULFATE 2.5 MG/3 ML NEBU NEB SCH ×4 (01:32→20:20)
[2022-11-25] MEDS: OMEPRAZOLE 20 MG CAPSULE.DR GT SCH ×2 (05:23→17:27)
[2022-11-25] MEDS: BACLOFEN 10 MG TABLET GT SCH ×3 (05:23→21:16)
[2022-11-25] MEDS: VITAL AF 1.2 1,000 ML LIQUID GT PRN (06:58)
[2022-11-25] MEDS: METOPROLOL TARTRATE 25 MG TABLET GT SCH ×2 (09:00→20:38)
[2022-11-25] MEDS: LOSARTAN POTASSIUM 25 MG TABLET GT SCH (09:22)
[2022-11-25] MEDS: ASPIRIN 81 MG TAB.CHEW GT SCH (09:22)
[2022-11-25] MEDS: VITAMINS A AND D OINT 42 GM TUBE TP SCH ×2 (09:23→20:39)
[2022-11-25] MEDS: SODIUM CHLORIDE 1,000 MG TABLET GT SCH ×3 (09:23→17:27)
[2022-11-25] MEDS: REMEDY ESSENTIAL ZINC PASTE 113 GM TP SCH ×2 (09:23→20:39)
[2022-11-25] MEDS: ACIDOPHILUS/BULGARICUS CHEW TAB GT SCH ×2 (09:23→20:38)
[2022-11-25] MEDS: CLOPIDOGREL 75 MG TABLET GT SCH (09:23)
[2022-11-25] MEDS: HYDROGEN PEROXIDE 3% 118 ML BOTTLE TP SCH ×2 (09:32→21:02)
[2022-11-25] MEDS: ATORVASTATIN 20 MG TABLET GT SCH (20:38)
[2022-11-25] MEDS: NUTRISOURCE FIBER 4 GM PACKET GT SCH (20:38)
[2022-11-25] MEDS: MULTIVIT, IRON, MIN NO. 8, FA TABLET GT SCH (20:38)
[2022-11-26] VITALS (9 sets, daily range): TEMP 97.5–98; O2SAT 97–98
[2022-11-26] MEDS: ALBUTEROL SULFATE 2.5 MG/3 ML NEBU NEB SCH ×4 (01:30→19:19)
[2022-11-26] MEDS: VITAL AF 1.2 1,000 ML LIQUID GT PRN ×2 (01:34→23:13)
[2022-11-26] MEDS: ACETAMINOPHEN 650 MG/20 ML UDC- SA PATIENTS-PAIN ONLY GT PRN (01:45)
[2022-11-26] MEDS: BACLOFEN 10 MG TABLET GT SCH ×3 (05:51→22:00)
[2022-11-26] MEDS: OMEPRAZOLE 20 MG CAPSULE.DR GT SCH ×2 (05:51→18:02)
[2022-11-26] MEDS: HYDROGEN PEROXIDE 3% 118 ML BOTTLE TP SCH ×2 (07:48→19:20)
[2022-11-26] MEDS: METOPROLOL TARTRATE 25 MG TABLET GT SCH ×2 (09:00→20:55)
[2022-11-26] MEDS: ASPIRIN 81 MG TAB.CHEW GT SCH (09:44)
[2022-11-26] MEDS: LOSARTAN POTASSIUM 25 MG TABLET GT SCH (09:44)
[2022-11-26] MEDS: ACIDOPHILUS/BULGARICUS CHEW TAB GT SCH ×2 (09:44→20:54)
[2022-11-26] MEDS: CLOPIDOGREL 75 MG TABLET GT SCH (09:45)
[2022-11-26] MEDS: SODIUM CHLORIDE 1,000 MG TABLET GT SCH ×3 (09:45→17:00)
[2022-11-26] MEDS: REMEDY ESSENTIAL ZINC PASTE 113 GM TP SCH ×2 (09:45→20:55)
[2022-11-26] MEDS: VITAMINS A AND D OINT 42 GM TUBE TP SCH ×2 (09:46→20:55)
[2022-11-26] MEDS: ATORVASTATIN 20 MG TABLET GT SCH (20:54)
[2022-11-26] MEDS: NUTRISOURCE FIBER 4 GM PACKET GT SCH (20:55)
[2022-11-27] VITALS (10 sets, daily range): TEMP 97.2–97.5; O2SAT 97–98
[2022-11-27] MEDS: ALBUTEROL SULFATE 2.5 MG/3 ML NEBU NEB SCH ×5 (00:48→19:33)
[2022-11-27] MEDS: OMEPRAZOLE 20 MG CAPSULE.DR GT SCH ×2 (05:46→17:14)
[2022-11-27] MEDS: BACLOFEN 10 MG TABLET GT SCH ×3 (05:46→21:23)
[2022-11-27] MEDS: HYDROGEN PEROXIDE 3% 118 ML BOTTLE TP SCH ×3 (07:43→20:41)
[2022-11-27] MEDS: ASPIRIN 81 MG TAB.CHEW GT SCH (09:28)
[2022-11-27] MEDS: CLOPIDOGREL 75 MG TABLET GT SCH (09:29)
[2022-11-27] MEDS: VITAMINS A AND D OINT 42 GM TUBE TP SCH ×2 (09:29→21:23)
[2022-11-27] MEDS: REMEDY ESSENTIAL ZINC PASTE 113 GM TP SCH ×2 (09:29→21:22)
[2022-11-27] MEDS: METOPROLOL TARTRATE 25 MG TABLET GT SCH ×2 (09:29→21:22)
[2022-11-27] MEDS: SODIUM CHLORIDE 1,000 MG TABLET GT SCH ×3 (09:29→17:14)
[2022-11-27] MEDS: LOSARTAN POTASSIUM 25 MG TABLET GT SCH (09:29)
[2022-11-27] MEDS: ACIDOPHILUS/BULGARICUS CHEW TAB GT SCH ×2 (09:29→21:22)
[2022-11-27] MEDS: MULTIVIT, IRON, MIN NO. 8, FA TABLET GT SCH (21:22)
[2022-11-27] MEDS: ATORVASTATIN 20 MG TABLET GT SCH (21:22)
[2022-11-27] MEDS: NUTRISOURCE FIBER 4 GM PACKET GT SCH (21:22)
[2022-11-27] MEDS: diphenhydrAMINE 25 MG/10 ML UDC GT PRN (21:23)
[2022-11-27] MEDS: VITAL AF 1.2 1,000 ML LIQUID GT PRN (21:23)
[2022-11-28] VITALS (11 sets, daily range): TEMP 97.7–98; O2SAT 97–98
[2022-11-28] MEDS: ALBUTEROL SULFATE 2.5 MG/3 ML NEBU NEB SCH ×4 (00:40→21:00)
[2022-11-28] MEDS: OMEPRAZOLE 20 MG CAPSULE.DR GT SCH ×2 (05:17→17:00)
[2022-11-28] MEDS: BACLOFEN 10 MG TABLET GT SCH ×3 (05:17→21:43)
[2022-11-28] MEDS: LOSARTAN POTASSIUM 25 MG TABLET GT SCH (08:25)
[2022-11-28] MEDS: ACIDOPHILUS/BULGARICUS CHEW TAB GT SCH ×2 (08:25→20:51)
[2022-11-28] MEDS: ASPIRIN 81 MG TAB.CHEW GT SCH (08:25)
[2022-11-28] MEDS: CLOPIDOGREL 75 MG TABLET GT SCH (08:26)
[2022-11-28] MEDS: METOPROLOL TARTRATE 25 MG TABLET GT SCH ×2 (08:26→20:51)
[2022-11-28] MEDS: SODIUM CHLORIDE 1,000 MG TABLET GT SCH ×3 (08:26→17:00)
[2022-11-28] MEDS: REMEDY ESSENTIAL ZINC PASTE 113 GM TP SCH ×2 (08:26→20:51)
[2022-11-28] MEDS: VITAMINS A AND D OINT 42 GM TUBE TP SCH ×2 (08:26→20:51)
[2022-11-28] MEDS: HYDROGEN PEROXIDE 3% 118 ML BOTTLE TP SCH ×2 (09:00→21:02)
[2022-11-28] MEDS: VITAL AF 1.2 1,000 ML LIQUID GT PRN (18:30)
[2022-11-28] MEDS: NUTRISOURCE FIBER 4 GM PACKET GT SCH (20:51)
[2022-11-28] MEDS: ATORVASTATIN 20 MG TABLET GT SCH (20:51)
[2022-11-29] VITALS (11 sets, daily range): TEMP 97.6–97.9; O2SAT 97–98
[2022-11-29] MEDS: ALBUTEROL SULFATE 2.5 MG/3 ML NEBU NEB SCH ×4 (04:14→19:30)
[2022-11-29] MEDS: OMEPRAZOLE 20 MG CAPSULE.DR GT SCH ×2 (06:05→17:56)
[2022-11-29] MEDS: BACLOFEN 10 MG TABLET GT SCH ×3 (06:05→21:14)
[2022-11-29] MEDS: HYDROGEN PEROXIDE 3% 118 ML BOTTLE TP SCH ×2 (08:08→19:30)
[2022-11-29] MEDS: ASPIRIN 81 MG TAB.CHEW GT SCH (08:12)
[2022-11-29] MEDS: LOSARTAN POTASSIUM 25 MG TABLET GT SCH (08:13)
[2022-11-29] MEDS: ACIDOPHILUS/BULGARICUS CHEW TAB GT SCH ×2 (08:13→21:13)
[2022-11-29] MEDS: METOPROLOL TARTRATE 25 MG TABLET GT SCH ×2 (08:13→21:13)
[2022-11-29] MEDS: CLOPIDOGREL 75 MG TABLET GT SCH (08:14)
[2022-11-29] MEDS: REMEDY ESSENTIAL ZINC PASTE 113 GM TP SCH ×2 (08:14→21:14)
[2022-11-29] MEDS: SODIUM CHLORIDE 1,000 MG TABLET GT SCH ×3 (08:14→17:56)
[2022-11-29] MEDS: diphenhydrAMINE 25 MG/10 ML UDC GT PRN (08:14)
[2022-11-29] MEDS: VITAMINS A AND D OINT 42 GM TUBE TP SCH ×2 (08:14→21:14)
[2022-11-29] MEDS: VITAL AF 1.2 1,000 ML LIQUID GT PRN (14:42)
[2022-11-29] MEDS: MULTIVIT, IRON, MIN NO. 8, FA TABLET GT SCH (21:13)
[2022-11-29] MEDS: ATORVASTATIN 20 MG TABLET GT SCH (21:13)
[2022-11-29] MEDS: NUTRISOURCE FIBER 4 GM PACKET GT SCH (21:13)
[2022-11-30] VITALS (10 sets, daily range): TEMP 97.2–98.1; O2SAT 97–99
[2022-11-30] MEDS: ALBUTEROL SULFATE 2.5 MG/3 ML NEBU NEB SCH ×4 (01:31→19:10)
[2022-11-30] MEDS: BACLOFEN 10 MG TABLET GT SCH ×3 (05:46→22:00)
[2022-11-30] MEDS: OMEPRAZOLE 20 MG CAPSULE.DR GT SCH ×2 (05:46→17:07)
[2022-11-30] MEDS: HYDROGEN PEROXIDE 3% 118 ML BOTTLE TP SCH ×2 (08:29→19:10)
[2022-11-30] MEDS: METOPROLOL TARTRATE 25 MG TABLET GT SCH ×2 (09:00→20:40)
[2022-11-30] MEDS: ASPIRIN 81 MG TAB.CHEW GT SCH (09:38)
[2022-11-30] MEDS: ACIDOPHILUS/BULGARICUS CHEW TAB GT SCH ×2 (09:38→20:38)
[2022-11-30] MEDS: REMEDY ESSENTIAL ZINC PASTE 113 GM TP SCH ×2 (09:39→20:41)
[2022-11-30] MEDS: LOSARTAN POTASSIUM 25 MG TABLET GT SCH (09:39)
[2022-11-30] MEDS: VITAMINS A AND D OINT 42 GM TUBE TP SCH ×2 (09:39→20:41)
[2022-11-30] MEDS: CLOPIDOGREL 75 MG TABLET GT SCH (09:39)
[2022-11-30] MEDS: SODIUM CHLORIDE 1,000 MG TABLET GT SCH ×3 (09:39→17:07)
[2022-11-30] MEDS: VITAL AF 1.2 1,000 ML LIQUID GT PRN (14:02)
[2022-11-30] MEDS: ATORVASTATIN 20 MG TABLET GT SCH (20:39)
[2022-11-30] MEDS: NUTRISOURCE FIBER 4 GM PACKET GT SCH (20:41)
[2022-12-01] VITALS (10 sets, daily range): TEMP 98.2–98.6; O2SAT 96–99
[2022-12-01] MEDS: ALBUTEROL SULFATE 2.5 MG/3 ML NEBU NEB SCH ×4 (01:11→20:20)
[2022-12-01] MEDS: BACLOFEN 10 MG TABLET GT SCH ×3 (06:14→22:00)
[2022-12-01] MEDS: OMEPRAZOLE 20 MG CAPSULE.DR GT SCH ×2 (06:14→17:04)
[2022-12-01] MEDS: HYDROGEN PEROXIDE 3% 118 ML BOTTLE TP SCH ×2 (07:39→20:20)
[2022-12-01] MEDS: METOPROLOL TARTRATE 25 MG TABLET GT SCH ×2 (08:16→20:46)
[2022-12-01] MEDS: ACIDOPHILUS/BULGARICUS CHEW TAB GT SCH ×2 (08:17→20:45)
[2022-12-01] MEDS: ASPIRIN 81 MG TAB.CHEW GT SCH (08:17)
[2022-12-01] MEDS: SODIUM CHLORIDE 1,000 MG TABLET GT SCH ×3 (08:17→17:04)
[2022-12-01] MEDS: LOSARTAN POTASSIUM 25 MG TABLET GT SCH (08:17)
[2022-12-01] MEDS: REMEDY ESSENTIAL ZINC PASTE 113 GM TP SCH ×2 (08:18→20:47)
[2022-12-01] MEDS: VITAMINS A AND D OINT 42 GM TUBE TP SCH ×2 (08:18→20:47)
[2022-12-01] MEDS: CLOPIDOGREL 75 MG TABLET GT SCH (08:18)
[2022-12-01] MEDS: VITAL AF 1.2 1,000 ML LIQUID GT PRN (17:00)
[2022-12-01] MEDS: diphenhydrAMINE 25 MG/10 ML UDC GT PRN (17:00)
[2022-12-01] MEDS: ATORVASTATIN 20 MG TABLET GT SCH (20:45)
[2022-12-01] MEDS: NUTRISOURCE FIBER 4 GM PACKET GT SCH (20:46)
[2022-12-01] MEDS: MULTIVIT, IRON, MIN NO. 8, FA TABLET GT SCH (20:46)
[2022-12-02] VITALS (9 sets, daily range): BP systolic 100; BP diastolic 70; TEMP 97.3–98; O2SAT 55–99
[2022-12-02] MEDS: ALBUTEROL SULFATE 2.5 MG/3 ML NEBU NEB SCH ×4 (01:46→19:16)
[2022-12-02] MEDS: OMEPRAZOLE 20 MG CAPSULE.DR GT SCH ×2 (05:40→17:12)
[2022-12-02] MEDS: BACLOFEN 10 MG TABLET GT SCH ×3 (05:40→22:30)
[2022-12-02] MEDS: HYDROGEN PEROXIDE 3% 118 ML BOTTLE TP SCH ×2 (07:08→19:16)
[2022-12-02] MEDS: ASPIRIN 81 MG TAB.CHEW GT SCH (09:08)
[2022-12-02] MEDS: LOSARTAN POTASSIUM 25 MG TABLET GT SCH (09:08)
[2022-12-02] MEDS: ACIDOPHILUS/BULGARICUS CHEW TAB GT SCH ×2 (09:08→20:34)
[2022-12-02] MEDS: METOPROLOL TARTRATE 25 MG TABLET GT SCH ×2 (09:08→21:00)
[2022-12-02] MEDS: SODIUM CHLORIDE 1,000 MG TABLET GT SCH ×3 (09:08→17:12)
[2022-12-02] MEDS: REMEDY ESSENTIAL ZINC PASTE 113 GM TP SCH ×2 (09:09→20:35)
[2022-12-02] MEDS: CLOPIDOGREL 75 MG TABLET GT SCH (09:09)
[2022-12-02] MEDS: VITAMINS A AND D OINT 42 GM TUBE TP SCH ×2 (09:09→20:35)
[2022-12-02] MEDS: ATORVASTATIN 20 MG TABLET GT SCH (20:34)
[2022-12-02] MEDS: NUTRISOURCE FIBER 4 GM PACKET GT SCH (20:35)
[2022-12-03] VITALS (11 sets, daily range): TEMP 97.5–98.5; O2SAT 97–99
[2022-12-03] MEDS: ALBUTEROL SULFATE 2.5 MG/3 ML NEBU NEB SCH ×4 (00:52→19:06)
[2022-12-03] MEDS: OMEPRAZOLE 20 MG CAPSULE.DR GT SCH ×2 (05:38→17:31)
[2022-12-03] MEDS: BACLOFEN 10 MG TABLET GT SCH ×3 (05:38→21:08)
[2022-12-03] MEDS: HYDROGEN PEROXIDE 3% 118 ML BOTTLE TP SCH ×2 (07:40→19:06)
[2022-12-03] MEDS: LOSARTAN POTASSIUM 25 MG TABLET GT SCH (08:31)
[2022-12-03] MEDS: METOPROLOL TARTRATE 25 MG TABLET GT SCH ×2 (08:31→21:06)
[2022-12-03] MEDS: ASPIRIN 81 MG TAB.CHEW GT SCH (08:31)
[2022-12-03] MEDS: ACIDOPHILUS/BULGARICUS CHEW TAB GT SCH ×2 (08:31→21:05)
[2022-12-03] MEDS: CLOPIDOGREL 75 MG TABLET GT SCH (08:32)
[2022-12-03] MEDS: VITAMINS A AND D OINT 42 GM TUBE TP SCH ×2 (08:32→21:06)
[2022-12-03] MEDS: SODIUM CHLORIDE 1,000 MG TABLET GT SCH ×3 (08:32→17:31)
[2022-12-03] MEDS: VITAL AF 1.2 1,000 ML LIQUID GT PRN (08:32)
[2022-12-03] MEDS: REMEDY ESSENTIAL ZINC PASTE 113 GM TP SCH ×2 (08:32→21:06)
[2022-12-03] MEDS: NUTRISOURCE FIBER 4 GM PACKET GT SCH (21:06)
[2022-12-03] MEDS: MULTIVIT, IRON, MIN NO. 8, FA TABLET GT SCH (21:06)
[2022-12-03] MEDS: ATORVASTATIN 20 MG TABLET GT SCH (21:11)
[2022-12-03] MEDS: diphenhydrAMINE 25 MG/10 ML UDC GT PRN (21:20)
[2022-12-04] VITALS (10 sets, daily range): TEMP 97.9–98.7; O2SAT 96–99
[2022-12-04] MEDS: ALBUTEROL SULFATE 2.5 MG/3 ML NEBU NEB SCH ×4 (00:39→20:20)
[2022-12-04] MEDS: BACLOFEN 10 MG TABLET GT SCH ×3 (05:17→22:45)
[2022-12-04] MEDS: VITAL AF 1.2 1,000 ML LIQUID GT PRN (05:17)
[2022-12-04] MEDS: OMEPRAZOLE 20 MG CAPSULE.DR GT SCH ×2 (05:17→17:32)
[2022-12-04] MEDS: METOPROLOL TARTRATE 25 MG TABLET GT SCH ×2 (09:00→20:13)
[2022-12-04] MEDS: LOSARTAN POTASSIUM 25 MG TABLET GT SCH (09:00)
[2022-12-04] MEDS: ASPIRIN 81 MG TAB.CHEW GT SCH (09:35)
[2022-12-04] MEDS: ACIDOPHILUS/BULGARICUS CHEW TAB GT SCH ×2 (09:35→20:12)
[2022-12-04] MEDS: SODIUM CHLORIDE 1,000 MG TABLET GT SCH ×3 (09:36→17:32)
[2022-12-04] MEDS: CLOPIDOGREL 75 MG TABLET GT SCH (09:36)
[2022-12-04] MEDS: VITAMINS A AND D OINT 42 GM TUBE TP SCH ×2 (09:36→20:12)
[2022-12-04] MEDS: REMEDY ESSENTIAL ZINC PASTE 113 GM TP SCH ×2 (09:36→20:12)
[2022-12-04] MEDS: HYDROGEN PEROXIDE 3% 118 ML BOTTLE TP SCH ×2 (10:30→21:12)
[2022-12-04] MEDS: NUTRISOURCE FIBER 4 GM PACKET GT SCH (20:12)
[2022-12-04] MEDS: ATORVASTATIN 20 MG TABLET GT SCH (20:16)
[2022-12-05] VITALS (12 sets, daily range): TEMP 97.3–98.1; O2SAT 97–99
[2022-12-05] MEDS: ALBUTEROL SULFATE 2.5 MG/3 ML NEBU NEB SCH ×4 (00:51→18:47)
[2022-12-05] MEDS: BACLOFEN 10 MG TABLET GT SCH ×3 (05:07→22:00)
[2022-12-05] MEDS: OMEPRAZOLE 20 MG CAPSULE.DR GT SCH ×2 (05:07→17:32)
[2022-12-05] MEDS: diphenhydrAMINE 25 MG/10 ML UDC GT PRN (06:44)
[2022-12-05] MEDS: HYDROGEN PEROXIDE 3% 118 ML BOTTLE TP SCH ×2 (07:24→21:00)
[2022-12-05] MEDS: ACIDOPHILUS/BULGARICUS CHEW TAB GT SCH ×2 (09:20→20:43)
[2022-12-05] MEDS: LOSARTAN POTASSIUM 25 MG TABLET GT SCH (09:20)
[2022-12-05] MEDS: ASPIRIN 81 MG TAB.CHEW GT SCH (09:20)
[2022-12-05] MEDS: CLOPIDOGREL 75 MG TABLET GT SCH (09:21)
[2022-12-05] MEDS: SODIUM CHLORIDE 1,000 MG TABLET GT SCH ×3 (09:21→17:32)
[2022-12-05] MEDS: VITAMINS A AND D OINT 42 GM TUBE TP SCH ×2 (09:21→20:44)
[2022-12-05] MEDS: REMEDY ESSENTIAL ZINC PASTE 113 GM TP SCH ×2 (09:21→20:44)
[2022-12-05] MEDS: METOPROLOL TARTRATE 25 MG TABLET GT SCH ×2 (09:21→20:47)
[2022-12-05] MEDS: NUTRISOURCE FIBER 4 GM PACKET GT SCH (20:43)
[2022-12-05] MEDS: MULTIVIT, IRON, MIN NO. 8, FA TABLET GT SCH (20:44)
[2022-12-05] MEDS: ATORVASTATIN 20 MG TABLET GT SCH (20:46)
[2022-12-06] VITALS (10 sets, daily range): TEMP 97.5–97.6; O2SAT 97–99
[2022-12-06] MEDS: ALBUTEROL SULFATE 2.5 MG/3 ML NEBU NEB SCH ×4 (01:38→19:20)
[2022-12-06] MEDS: VITAL AF 1.2 1,000 ML LIQUID GT PRN (02:49)
[2022-12-06] MEDS: OMEPRAZOLE 20 MG CAPSULE.DR GT SCH ×2 (05:45→17:41)
[2022-12-06] MEDS: BACLOFEN 10 MG TABLET GT SCH ×3 (05:45→22:18)
[2022-12-06] MEDS: HYDROGEN PEROXIDE 3% 118 ML BOTTLE TP SCH ×2 (08:19→19:20)
[2022-12-06] MEDS: ASPIRIN 81 MG TAB.CHEW GT SCH (09:00)
[2022-12-06] MEDS: ACIDOPHILUS/BULGARICUS CHEW TAB GT SCH ×2 (09:01→20:28)
[2022-12-06] MEDS: REMEDY ESSENTIAL ZINC PASTE 113 GM TP SCH ×2 (09:03→20:29)
[2022-12-06] MEDS: VITAMINS A AND D OINT 42 GM TUBE TP SCH ×2 (09:03→20:29)
[2022-12-06] MEDS: LOSARTAN POTASSIUM 25 MG TABLET GT SCH (09:16)
[2022-12-06] MEDS: METOPROLOL TARTRATE 25 MG TABLET GT SCH ×2 (09:16→20:36)
[2022-12-06] MEDS: SODIUM CHLORIDE 1,000 MG TABLET GT SCH ×3 (09:17→17:38)
[2022-12-06] MEDS: CLOPIDOGREL 75 MG TABLET GT SCH (09:17)
[2022-12-06] MEDS: ATORVASTATIN 20 MG TABLET GT SCH (20:28)
[2022-12-06] MEDS: NUTRISOURCE FIBER 4 GM PACKET GT SCH (20:28)
[2022-12-07] VITALS (10 sets, daily range): TEMP 97.5–98.6; O2SAT 97–99
[2022-12-07] MEDS: ALBUTEROL SULFATE 2.5 MG/3 ML NEBU NEB SCH ×4 (01:49→19:40)
[2022-12-07] MEDS: VITAL AF 1.2 1,000 ML LIQUID GT PRN (01:56)
[2022-12-07] MEDS: BACLOFEN 10 MG TABLET GT SCH ×3 (05:54→22:39)
[2022-12-07] MEDS: OMEPRAZOLE 20 MG CAPSULE.DR GT SCH ×2 (05:54→17:44)
[2022-12-07] MEDS: HYDROGEN PEROXIDE 3% 118 ML BOTTLE TP SCH ×2 (07:56→20:33)
[2022-12-07] MEDS: ASPIRIN 81 MG TAB.CHEW GT SCH (09:19)
[2022-12-07] MEDS: ACIDOPHILUS/BULGARICUS CHEW TAB GT SCH ×2 (09:22→20:28)
[2022-12-07] MEDS: LOSARTAN POTASSIUM 25 MG TABLET GT SCH (09:22)
[2022-12-07] MEDS: METOPROLOL TARTRATE 25 MG TABLET GT SCH ×2 (09:23→20:29)
[2022-12-07] MEDS: CLOPIDOGREL 75 MG TABLET GT SCH (09:28)
[2022-12-07] MEDS: SODIUM CHLORIDE 1,000 MG TABLET GT SCH ×3 (09:28→17:44)
[2022-12-07] MEDS: VITAMINS A AND D OINT 42 GM TUBE TP SCH ×2 (09:28→20:30)
[2022-12-07] MEDS: REMEDY ESSENTIAL ZINC PASTE 113 GM TP SCH ×2 (09:28→20:30)
[2022-12-07] MEDS: diphenhydrAMINE 25 MG/10 ML UDC GT PRN (17:45)
[2022-12-07] MEDS: MULTIVIT, IRON, MIN NO. 8, FA TABLET GT SCH (20:29)
[2022-12-07] MEDS: ATORVASTATIN 20 MG TABLET GT SCH (20:29)
[2022-12-07] MEDS: NUTRISOURCE FIBER 4 GM PACKET GT SCH (20:29)
[2022-12-08] VITALS (11 sets, daily range): TEMP 97.6; O2SAT 97–99
[2022-12-08] MEDS: ALBUTEROL SULFATE 2.5 MG/3 ML NEBU NEB SCH ×4 (00:30→19:16)
[2022-12-08] MEDS: VITAL AF 1.2 1,000 ML LIQUID GT PRN (00:51)
[2022-12-08] MEDS: diphenhydrAMINE 25 MG/10 ML UDC GT PRN (02:00)
[2022-12-08] MEDS: BACLOFEN 10 MG TABLET GT SCH ×3 (06:08→22:22)
[2022-12-08] MEDS: OMEPRAZOLE 20 MG CAPSULE.DR GT SCH ×2 (06:08→17:17)
[2022-12-08] MEDS: HYDROGEN PEROXIDE 3% 118 ML BOTTLE TP SCH ×2 (08:28→19:16)
[2022-12-08] MEDS: ASPIRIN 81 MG TAB.CHEW GT SCH (09:19)
[2022-12-08] MEDS: LOSARTAN POTASSIUM 25 MG TABLET GT SCH (09:19)
[2022-12-08] MEDS: CLOPIDOGREL 75 MG TABLET GT SCH (09:20)
[2022-12-08] MEDS: METOPROLOL TARTRATE 25 MG TABLET GT SCH ×2 (09:20→20:49)
[2022-12-08] MEDS: SODIUM CHLORIDE 1,000 MG TABLET GT SCH ×3 (09:20→17:17)
[2022-12-08] MEDS: ACIDOPHILUS/BULGARICUS CHEW TAB GT SCH ×2 (09:20→20:48)
[2022-12-08] MEDS: VITAMINS A AND D OINT 42 GM TUBE TP SCH ×2 (09:22→20:50)
[2022-12-08] MEDS: REMEDY ESSENTIAL ZINC PASTE 113 GM TP SCH ×2 (09:22→20:49)
[2022-12-08] MEDS: ATORVASTATIN 20 MG TABLET GT SCH (20:48)
[2022-12-08] MEDS: NUTRISOURCE FIBER 4 GM PACKET GT SCH (20:49)
[2022-12-09] VITALS (9 sets, daily range): TEMP 98–99.1; O2SAT 97–99
[2022-12-09] MEDS: VITAL AF 1.2 1,000 ML LIQUID GT PRN (00:51)
[2022-12-09] MEDS: ALBUTEROL SULFATE 2.5 MG/3 ML NEBU NEB SCH ×4 (01:24→19:16)
[2022-12-09] MEDS: OMEPRAZOLE 20 MG CAPSULE.DR GT SCH ×2 (05:45→17:13)
[2022-12-09] MEDS: BACLOFEN 10 MG TABLET GT SCH ×3 (05:45→21:16)
[2022-12-09] MEDS: HYDROGEN PEROXIDE 3% 118 ML BOTTLE TP SCH ×2 (07:53→19:16)
[2022-12-09] MEDS: ACIDOPHILUS/BULGARICUS CHEW TAB GT SCH ×2 (09:00→20:55)
[2022-12-09] MEDS: ASPIRIN 81 MG TAB.CHEW GT SCH (09:48)
[2022-12-09] MEDS: LOSARTAN POTASSIUM 25 MG TABLET GT SCH (09:56)
[2022-12-09] MEDS: CLOPIDOGREL 75 MG TABLET GT SCH (09:58)
[2022-12-09] MEDS: METOPROLOL TARTRATE 25 MG TABLET GT SCH ×2 (09:58→21:03)
[2022-12-09] MEDS: SODIUM CHLORIDE 1,000 MG TABLET GT SCH ×3 (09:58→17:10)
[2022-12-09] MEDS: REMEDY ESSENTIAL ZINC PASTE 113 GM TP SCH ×2 (09:59→20:56)
[2022-12-09] MEDS: VITAMINS A AND D OINT 42 GM TUBE TP SCH ×2 (09:59→20:56)
[2022-12-09] MEDS: MULTIVIT, IRON, MIN NO. 8, FA TABLET GT SCH (20:56)
[2022-12-09] MEDS: NUTRISOURCE FIBER 4 GM PACKET GT SCH (20:56)
[2022-12-09] MEDS: ATORVASTATIN 20 MG TABLET GT SCH (21:03)
[2022-12-09] MEDS: ACETAMINOPHEN 650 MG/20 ML UDC- SA PATIENTS-PAIN ONLY GT PRN (21:03)
[2022-12-10] VITALS (11 sets, daily range): TEMP 97.3–98.5; O2SAT 96–99
[2022-12-10] MEDS: ALBUTEROL SULFATE 2.5 MG/3 ML NEBU NEB SCH ×4 (01:33→20:11)
[2022-12-10] MEDS: VITAL AF 1.2 1,000 ML LIQUID GT PRN (02:00)
[2022-12-10] MEDS: BACLOFEN 10 MG TABLET GT SCH ×3 (05:28→22:46)
[2022-12-10] MEDS: OMEPRAZOLE 20 MG CAPSULE.DR GT SCH ×2 (05:28→17:27)
[2022-12-10] MEDS: HYDROGEN PEROXIDE 3% 118 ML BOTTLE TP SCH (07:28)
[2022-12-10] MEDS: ASPIRIN 81 MG TAB.CHEW GT SCH (09:24)
[2022-12-10] MEDS: LOSARTAN POTASSIUM 25 MG TABLET GT SCH (09:25)
[2022-12-10] MEDS: ACIDOPHILUS/BULGARICUS CHEW TAB GT SCH ×2 (09:26→21:00)
[2022-12-10] MEDS: CLOPIDOGREL 75 MG TABLET GT SCH (09:30)
[2022-12-10] MEDS: VITAMINS A AND D OINT 42 GM TUBE TP SCH ×2 (09:30→21:00)
[2022-12-10] MEDS: REMEDY ESSENTIAL ZINC PASTE 113 GM TP SCH ×2 (09:30→21:00)
[2022-12-10] MEDS: METOPROLOL TARTRATE 25 MG TABLET GT SCH ×2 (09:30→21:00)
[2022-12-10] MEDS: SODIUM CHLORIDE 1,000 MG TABLET GT SCH ×3 (09:30→17:22)
[2022-12-10] MEDS: diphenhydrAMINE 25 MG/10 ML UDC GT PRN (15:42)
[2022-12-10] MEDS: NUTRISOURCE FIBER 4 GM PACKET GT SCH (21:00)
[2022-12-10] MEDS: ATORVASTATIN 20 MG TABLET GT SCH (21:00)
[2022-12-11] VITALS (11 sets, daily range): TEMP 96.8–97.6; O2SAT 96–99
[2022-12-11] MEDS: ALBUTEROL SULFATE 2.5 MG/3 ML NEBU NEB SCH ×4 (00:56→19:17)
[2022-12-11] MEDS: HYDROGEN PEROXIDE 3% 118 ML BOTTLE TP SCH ×3 (00:56→19:17)
[2022-12-11] MEDS: VITAL AF 1.2 1,000 ML LIQUID GT PRN (01:00)
[2022-12-11] MEDS: OMEPRAZOLE 20 MG CAPSULE.DR GT SCH ×2 (05:45→17:13)
[2022-12-11] MEDS: BACLOFEN 10 MG TABLET GT SCH ×3 (05:45→22:07)
[2022-12-11] MEDS: METOPROLOL TARTRATE 25 MG TABLET GT SCH ×2 (09:00→20:22)
[2022-12-11] MEDS: SODIUM CHLORIDE 1,000 MG TABLET GT SCH ×3 (09:19→17:13)
[2022-12-11] MEDS: ASPIRIN 81 MG TAB.CHEW GT SCH (09:19)
[2022-12-11] MEDS: CLOPIDOGREL 75 MG TABLET GT SCH (09:19)
[2022-12-11] MEDS: LOSARTAN POTASSIUM 25 MG TABLET GT SCH (09:19)
[2022-12-11] MEDS: ACIDOPHILUS/BULGARICUS CHEW TAB GT SCH ×2 (09:19→20:16)
[2022-12-11] MEDS: VITAMINS A AND D OINT 42 GM TUBE TP SCH ×2 (09:20→20:25)
[2022-12-11] MEDS: REMEDY ESSENTIAL ZINC PASTE 113 GM TP SCH ×2 (09:20→20:25)
[2022-12-11] MEDS: ATORVASTATIN 20 MG TABLET GT SCH (20:22)
[2022-12-11] MEDS: NUTRISOURCE FIBER 4 GM PACKET GT SCH (20:23)
[2022-12-11] MEDS: MULTIVIT, IRON, MIN NO. 8, FA TABLET GT SCH (20:23)
[2022-12-12] VITALS (10 sets, daily range): TEMP 97.5–97.8; O2SAT 98–99
[2022-12-12] MEDS: ALBUTEROL SULFATE 2.5 MG/3 ML NEBU NEB SCH ×4 (00:40→19:16)
[2022-12-12] MEDS: OMEPRAZOLE 20 MG CAPSULE.DR GT SCH ×2 (05:15→17:14)
[2022-12-12] MEDS: BACLOFEN 10 MG TABLET GT SCH ×3 (05:15→22:31)
[2022-12-12] MEDS: HYDROGEN PEROXIDE 3% 118 ML BOTTLE TP SCH ×2 (08:34→19:16)
[2022-12-12] MEDS: METOPROLOL TARTRATE 25 MG TABLET GT SCH ×2 (09:00→20:31)
[2022-12-12] MEDS: ASPIRIN 81 MG TAB.CHEW GT SCH (09:33)
[2022-12-12] MEDS: CLOPIDOGREL 75 MG TABLET GT SCH (09:34)
[2022-12-12] MEDS: SODIUM CHLORIDE 1,000 MG TABLET GT SCH ×3 (09:34→17:14)
[2022-12-12] MEDS: REMEDY ESSENTIAL ZINC PASTE 113 GM TP SCH ×2 (09:34→20:31)
[2022-12-12] MEDS: VITAMINS A AND D OINT 42 GM TUBE TP SCH ×2 (09:34→20:31)
[2022-12-12] MEDS: ACIDOPHILUS/BULGARICUS CHEW TAB GT SCH ×2 (09:34→20:30)
[2022-12-12] MEDS: LOSARTAN POTASSIUM 25 MG TABLET GT SCH (09:34)
[2022-12-12 16:08] LABS: BASOPHILS % (AUTO) 0.6 % (0.0-2.0); EOSINOPHILS # (AUTO) 0.3 K/uL (0.0-0.7); EOSINOPHILS % (AUTO) 6.3 % (0.0-7.0); HEMATOCRIT 37.8 % (36.7-47.1); HEMOGLOBIN 12.6 g/dL (12.5-16.3); LYMPHOCYTES # (AUTO) 1.3 K/uL (0.8-4.8); LYMPHOCYTES % (AUTO) 30.3 % (20.5-51.5); MEAN CORPUSCULAR HEMOGLOBIN 31.5 uug (23.8-33.4); MEAN CORPUSCULAR HGB CONC 34 g/dL (32.5-36.3); MONOCYTES # (AUTO) 0.3 K/uL (0.1-1.30); MONOCYTES % (AUTO) 7.1 % (0.0-11.0); NEUTROPHILS # (AUTO) 2.4 K/uL (1.8-8.9); NEUTROPHILS % (AUTO) 55.7 % (38.5-71.5); PLATELET COUNT (AUTO) 234 K/uL (152-348); RED BLOOD CELL COUNT(AUTO) 4.02 MIL/uL (4.06-5.63); RED CELL DISTRIBUTION WIDTH 13.6 % (12.1-16.2); WHITE BLOOD COUNT (AUTO) 4.2 K/uL (3.6-10.2)
[2022-12-12 16:36] LABS: CALCIUM 8.5 mg/dL (8.5-10.1); CREATININE 0.6 mg/dL (0.6-1.3)
[2022-12-12 16:37] LABS: DIFFERENTIAL COMMENT 1
[2022-12-12] MEDS: ATORVASTATIN 20 MG TABLET GT SCH (20:30)
[2022-12-12] MEDS: NUTRISOURCE FIBER 4 GM PACKET GT SCH (20:31)
[2022-12-13] VITALS (10 sets, daily range): TEMP 97.7–97.8; O2SAT 97–99
[2022-12-13] MEDS: ALBUTEROL SULFATE 2.5 MG/3 ML NEBU NEB SCH ×4 (00:42→19:43)
[2022-12-13] MEDS: VITAL AF 1.2 1,000 ML LIQUID GT PRN (04:21)
[2022-12-13] MEDS: BACLOFEN 10 MG TABLET GT SCH ×3 (05:37→22:00)
[2022-12-13] MEDS: OMEPRAZOLE 20 MG CAPSULE.DR GT SCH ×2 (05:37→17:12)
[2022-12-13 07:37] LABS: BASOPHILS % (AUTO) 0.7 % (0.0-2.0); EOSINOPHILS # (AUTO) 0.3 K/uL (0.0-0.7); EOSINOPHILS % (AUTO) 6.1 % (0.0-7.0); HEMATOCRIT 36.4 % (36.7-47.1); HEMOGLOBIN 12.5 g/dL (12.5-16.3); LYMPHOCYTES # (AUTO) 1.3 K/uL (0.8-4.8); LYMPHOCYTES % (AUTO) 25.8 % (20.5-51.5); MEAN CORPUSCULAR HEMOGLOBIN 32.2 uug (23.8-33.4); MEAN CORPUSCULAR HGB CONC 34 g/dL (32.5-36.3); MEAN CORPUSCULAR VOLUME 93.7 fL (73.0-96.2); MONOCYTES # (AUTO) 0.4 K/uL (0.1-1.30); MONOCYTES % (AUTO) 7.4 % (0.0-11.0); PLATELET COUNT (AUTO) 238 K/uL (152-348); RED BLOOD CELL COUNT(AUTO) 3.88 MIL/uL (4.06-5.63); RED CELL DISTRIBUTION WIDTH 13.5 % (12.1-16.2); WHITE BLOOD COUNT (AUTO) 5.1 K/uL (3.6-10.2)
[2022-12-13 07:42] LABS: CALCIUM 8.5 mg/dL (8.5-10.1); CREATININE 0.6 mg/dL (0.6-1.3); POTASSIUM 3.8 mmol/L (3.5-5.1)
[2022-12-13 07:57] LABS: DIFFERENTIAL COMMENT 1
[2022-12-13] MEDS: HYDROGEN PEROXIDE 3% 118 ML BOTTLE TP SCH ×2 (08:09→21:07)
[2022-12-13] MEDS: VITAMINS A AND D OINT 42 GM TUBE TP SCH ×2 (08:34→21:07)
[2022-12-13] MEDS: REMEDY ESSENTIAL ZINC PASTE 113 GM TP SCH ×2 (08:34→21:07)
[2022-12-13] MEDS: ACIDOPHILUS/BULGARICUS CHEW TAB GT SCH ×2 (08:34→21:07)
[2022-12-13] MEDS: SODIUM CHLORIDE 1,000 MG TABLET GT SCH ×3 (08:34→17:12)
[2022-12-13] MEDS: LOSARTAN POTASSIUM 25 MG TABLET GT SCH (08:34)
[2022-12-13] MEDS: METOPROLOL TARTRATE 25 MG TABLET GT SCH ×2 (08:34→21:00)
[2022-12-13] MEDS: ATORVASTATIN 20 MG TABLET GT SCH (21:07)
[2022-12-13] MEDS: NUTRISOURCE FIBER 4 GM PACKET GT SCH (21:07)
[2022-12-13] MEDS: MULTIVIT, IRON, MIN NO. 8, FA TABLET GT SCH (21:07)
[2022-12-14] VITALS (10 sets, daily range): TEMP 97.7–97.9; O2SAT 97–99
[2022-12-14] MEDS: ALBUTEROL SULFATE 2.5 MG/3 ML NEBU NEB SCH ×4 (01:24→19:07)
[2022-12-14] MEDS: OMEPRAZOLE 20 MG CAPSULE.DR GT SCH ×2 (05:15→17:30)
[2022-12-14] MEDS: BACLOFEN 10 MG TABLET GT SCH ×3 (05:15→21:59)
[2022-12-14] MEDS: VITAL AF 1.2 1,000 ML LIQUID GT PRN (06:16)
[2022-12-14] MEDS: HYDROGEN PEROXIDE 3% 118 ML BOTTLE TP SCH ×2 (08:09→19:07)
[2022-12-14] MEDS: ACIDOPHILUS/BULGARICUS CHEW TAB GT SCH ×2 (08:48→20:25)
[2022-12-14] MEDS: LOSARTAN POTASSIUM 25 MG TABLET GT SCH (08:48)
[2022-12-14] MEDS: METOPROLOL TARTRATE 25 MG TABLET GT SCH ×2 (08:48→20:25)
[2022-12-14] MEDS: SODIUM CHLORIDE 1,000 MG TABLET GT SCH ×3 (08:48→17:30)
[2022-12-14] MEDS: REMEDY ESSENTIAL ZINC PASTE 113 GM TP SCH ×2 (08:48→20:25)
[2022-12-14] MEDS: VITAMINS A AND D OINT 42 GM TUBE TP SCH ×2 (08:49→20:25)
[2022-12-14] MEDS: ATORVASTATIN 20 MG TABLET GT SCH (20:25)
[2022-12-14] MEDS: NUTRISOURCE FIBER 4 GM PACKET GT SCH (20:25)
[2022-12-14] MEDS: ACETAMINOPHEN 650 MG/20 ML UDC- SA PATIENTS-PAIN ONLY GT PRN (20:26)
[2022-12-15] VITALS (10 sets, daily range): TEMP 97.7–98.3; O2SAT 98–99
[2022-12-15] MEDS: ALBUTEROL SULFATE 2.5 MG/3 ML NEBU NEB SCH ×4 (00:49→19:11)
[2022-12-15] MEDS: BACLOFEN 10 MG TABLET GT SCH ×3 (06:47→22:18)
[2022-12-15] MEDS: VITAL AF 1.2 1,000 ML LIQUID GT PRN (06:47)
[2022-12-15] MEDS: OMEPRAZOLE 20 MG CAPSULE.DR GT SCH ×2 (06:47→18:07)
[2022-12-15] MEDS: HYDROGEN PEROXIDE 3% 118 ML BOTTLE TP SCH ×2 (07:57→19:11)
[2022-12-15] MEDS: ACIDOPHILUS/BULGARICUS CHEW TAB GT SCH ×2 (09:22→20:50)
[2022-12-15] MEDS: METOPROLOL TARTRATE 25 MG TABLET GT SCH ×2 (09:29→20:55)
[2022-12-15] MEDS: VITAMINS A AND D OINT 42 GM TUBE TP SCH ×2 (09:29→20:51)
[2022-12-15] MEDS: REMEDY ESSENTIAL ZINC PASTE 113 GM TP SCH ×2 (09:29→20:51)
[2022-12-15] MEDS: LOSARTAN POTASSIUM 25 MG TABLET GT SCH (09:29)
[2022-12-15] MEDS: SODIUM CHLORIDE 1,000 MG TABLET GT SCH ×3 (09:29→16:44)
[2022-12-15] MEDS: MULTIVIT, IRON, MIN NO. 8, FA TABLET GT SCH (20:51)
[2022-12-15] MEDS: NUTRISOURCE FIBER 4 GM PACKET GT SCH (20:51)
[2022-12-15] MEDS: ATORVASTATIN 20 MG TABLET GT SCH (20:55)
[2022-12-16] VITALS (10 sets, daily range): TEMP 97.9; O2SAT 98–99
[2022-12-16] MEDS: VITAL AF 1.2 1,000 ML LIQUID GT PRN ×2 (00:03→17:41)
[2022-12-16] MEDS: ALBUTEROL SULFATE 2.5 MG/3 ML NEBU NEB SCH ×4 (00:45→19:03)
[2022-12-16] MEDS: OMEPRAZOLE 20 MG CAPSULE.DR GT SCH ×2 (05:35→17:38)
[2022-12-16] MEDS: BACLOFEN 10 MG TABLET GT SCH ×3 (05:35→22:21)
[2022-12-16] MEDS: LOSARTAN POTASSIUM 25 MG TABLET GT SCH (08:10)
[2022-12-16] MEDS: ACIDOPHILUS/BULGARICUS CHEW TAB GT SCH ×2 (08:10→20:28)
[2022-12-16] MEDS: METOPROLOL TARTRATE 25 MG TABLET GT SCH ×2 (08:10→20:29)
[2022-12-16] MEDS: HYDROGEN PEROXIDE 3% 118 ML BOTTLE TP SCH ×2 (08:10→21:21)
[2022-12-16] MEDS: VITAMINS A AND D OINT 42 GM TUBE TP SCH ×2 (08:12→20:30)
[2022-12-16] MEDS: SODIUM CHLORIDE 1,000 MG TABLET GT SCH ×3 (08:12→16:31)
[2022-12-16] MEDS: REMEDY ESSENTIAL ZINC PASTE 113 GM TP SCH ×2 (08:12→20:29)
[2022-12-16] MEDS: ATORVASTATIN 20 MG TABLET GT SCH (20:28)
[2022-12-16] MEDS: NUTRISOURCE FIBER 4 GM PACKET GT SCH (20:29)
[2022-12-17] VITALS (12 sets, daily range): TEMP 97.7–98.4; O2SAT 96–99
[2022-12-17] MEDS: ALBUTEROL SULFATE 2.5 MG/3 ML NEBU NEB SCH ×4 (00:30→19:45)
[2022-12-17] MEDS: BACLOFEN 10 MG TABLET GT SCH ×3 (06:05→22:15)
[2022-12-17] MEDS: OMEPRAZOLE 20 MG CAPSULE.DR GT SCH ×2 (06:05→17:02)
[2022-12-17] MEDS: HYDROGEN PEROXIDE 3% 118 ML BOTTLE TP SCH ×2 (07:34→20:59)
[2022-12-17] MEDS: LOSARTAN POTASSIUM 25 MG TABLET GT SCH (08:44)
[2022-12-17] MEDS: ACIDOPHILUS/BULGARICUS CHEW TAB GT SCH ×2 (08:44→20:49)
[2022-12-17] MEDS: REMEDY ESSENTIAL ZINC PASTE 113 GM TP SCH ×2 (08:45→20:49)
[2022-12-17] MEDS: VITAMINS A AND D OINT 42 GM TUBE TP SCH ×2 (08:45→20:49)
[2022-12-17] MEDS: METOPROLOL TARTRATE 25 MG TABLET GT SCH ×2 (08:45→20:49)
[2022-12-17] MEDS: SODIUM CHLORIDE 1,000 MG TABLET GT SCH ×3 (08:45→17:02)
[2022-12-17] MEDS: VITAL AF 1.2 1,000 ML LIQUID GT PRN (17:02)
[2022-12-17] MEDS: NUTRISOURCE FIBER 4 GM PACKET GT SCH (20:49)
[2022-12-17] MEDS: MULTIVIT, IRON, MIN NO. 8, FA TABLET GT SCH (20:49)
[2022-12-17] MEDS: ATORVASTATIN 20 MG TABLET GT SCH (20:49)
[2022-12-17] MEDS: ACETAMINOPHEN 650 MG/20 ML UDC- SA PATIENTS-PAIN ONLY GT PRN (20:50)
[2022-12-18] VITALS (10 sets, daily range): BP systolic 130; BP diastolic 49; TEMP 97.9–98.6; O2SAT 96–99
[2022-12-18] MEDS: ALBUTEROL SULFATE 2.5 MG/3 ML NEBU NEB SCH ×4 (01:50→19:20)
[2022-12-18] MEDS: BACLOFEN 10 MG TABLET GT SCH ×3 (05:47→22:05)
[2022-12-18] MEDS: OMEPRAZOLE 20 MG CAPSULE.DR GT SCH ×2 (05:47→17:01)
[2022-12-18] MEDS: HYDROGEN PEROXIDE 3% 118 ML BOTTLE TP SCH ×2 (08:16→19:20)
[2022-12-18] MEDS: SODIUM CHLORIDE 1,000 MG TABLET GT SCH ×3 (09:14→17:01)
[2022-12-18] MEDS: METOPROLOL TARTRATE 25 MG TABLET GT SCH ×2 (09:14→20:53)
[2022-12-18] MEDS: ACIDOPHILUS/BULGARICUS CHEW TAB GT SCH ×2 (09:14→20:53)
[2022-12-18] MEDS: LOSARTAN POTASSIUM 25 MG TABLET GT SCH (09:14)
[2022-12-18] MEDS: REMEDY ESSENTIAL ZINC PASTE 113 GM TP SCH ×2 (09:15→20:54)
[2022-12-18] MEDS: VITAMINS A AND D OINT 42 GM TUBE TP SCH ×2 (09:15→20:54)
[2022-12-18] MEDS: diphenhydrAMINE 25 MG/10 ML UDC GT PRN (11:13)
[2022-12-18] MEDS: VITAL AF 1.2 1,000 ML LIQUID GT PRN (13:47)
[2022-12-18] MEDS: ATORVASTATIN 20 MG TABLET GT SCH (20:53)
[2022-12-18] MEDS: NUTRISOURCE FIBER 4 GM PACKET GT SCH (20:54)
[2022-12-19] VITALS (9 sets, daily range): TEMP 97.2–98.5; O2SAT 97–99
[2022-12-19] MEDS: ALBUTEROL SULFATE 2.5 MG/3 ML NEBU NEB SCH ×4 (01:30→20:08)
[2022-12-19] MEDS: BACLOFEN 10 MG TABLET GT SCH ×3 (05:38→21:03)
[2022-12-19] MEDS: OMEPRAZOLE 20 MG CAPSULE.DR GT SCH ×2 (05:39→17:28)
[2022-12-19] MEDS: HYDROGEN PEROXIDE 3% 118 ML BOTTLE TP SCH ×2 (08:34→20:08)
[2022-12-19] MEDS: ACIDOPHILUS/BULGARICUS CHEW TAB GT SCH ×2 (09:23→21:02)
[2022-12-19] MEDS: VITAMINS A AND D OINT 42 GM TUBE TP SCH ×2 (09:24→21:03)
[2022-12-19] MEDS: REMEDY ESSENTIAL ZINC PASTE 113 GM TP SCH ×2 (09:24→21:03)
[2022-12-19] MEDS: LOSARTAN POTASSIUM 25 MG TABLET GT SCH (09:32)
[2022-12-19] MEDS: SODIUM CHLORIDE 1,000 MG TABLET GT SCH ×3 (09:32→17:28)
[2022-12-19] MEDS: METOPROLOL TARTRATE 25 MG TABLET GT SCH ×2 (09:32→21:02)
[2022-12-19] MEDS: diphenhydrAMINE 25 MG/10 ML UDC GT PRN (10:19)
[2022-12-19] MEDS: VITAL AF 1.2 1,000 ML LIQUID GT PRN (13:41)
[2022-12-19] MEDS: ATORVASTATIN 20 MG TABLET GT SCH (21:02)
[2022-12-19] MEDS: NUTRISOURCE FIBER 4 GM PACKET GT SCH (21:02)
[2022-12-19] MEDS: MULTIVIT, IRON, MIN NO. 8, FA TABLET GT SCH (21:02)
[2022-12-20] VITALS (10 sets, daily range): TEMP 97.7–98.4; O2SAT 97–99
[2022-12-20] MEDS: ALBUTEROL SULFATE 2.5 MG/3 ML NEBU NEB SCH ×4 (01:21→19:17)
[2022-12-20] MEDS: BACLOFEN 10 MG TABLET GT SCH ×3 (05:29→21:43)
[2022-12-20] MEDS: OMEPRAZOLE 20 MG CAPSULE.DR GT SCH ×2 (05:29→17:48)
[2022-12-20] MEDS: HYDROGEN PEROXIDE 3% 118 ML BOTTLE TP SCH ×2 (07:22→20:52)
[2022-12-20] MEDS: METOPROLOL TARTRATE 25 MG TABLET GT SCH ×2 (08:14→20:53)
[2022-12-20] MEDS: SODIUM CHLORIDE 1,000 MG TABLET GT SCH ×3 (08:17→17:48)
[2022-12-20] MEDS: VITAMINS A AND D OINT 42 GM TUBE TP SCH ×2 (08:17→20:53)
[2022-12-20] MEDS: ACIDOPHILUS/BULGARICUS CHEW TAB GT SCH ×2 (08:17→20:53)
[2022-12-20] MEDS: REMEDY ESSENTIAL ZINC PASTE 113 GM TP SCH ×2 (08:17→20:53)
[2022-12-20] MEDS: LOSARTAN POTASSIUM 25 MG TABLET GT SCH (08:17)
[2022-12-20] MEDS: ACETAMINOPHEN 650 MG/20 ML UDC- SA PATIENTS-PAIN ONLY GT PRN (13:13)
[2022-12-20] MEDS: VITAL AF 1.2 1,000 ML LIQUID GT PRN (13:13)
[2022-12-20] MEDS: diphenhydrAMINE 25 MG/10 ML UDC GT PRN (17:52)
[2022-12-20] MEDS: NUTRISOURCE FIBER 4 GM PACKET GT SCH (20:53)
[2022-12-20] MEDS: ATORVASTATIN 20 MG TABLET GT SCH (20:53)
[2022-12-21] VITALS (10 sets, daily range): TEMP 97.7–98; O2SAT 97–99
[2022-12-21] MEDS: ALBUTEROL SULFATE 2.5 MG/3 ML NEBU NEB SCH ×4 (01:18→19:09)
[2022-12-21] MEDS: VITAL AF 1.2 1,000 ML LIQUID GT PRN (04:18)
[2022-12-21] MEDS: OMEPRAZOLE 20 MG CAPSULE.DR GT SCH ×2 (06:35→17:56)
[2022-12-21] MEDS: BACLOFEN 10 MG TABLET GT SCH ×3 (06:35→22:07)
[2022-12-21] MEDS: HYDROGEN PEROXIDE 3% 118 ML BOTTLE TP SCH ×2 (07:35→19:09)
[2022-12-21] MEDS: LOSARTAN POTASSIUM 25 MG TABLET GT SCH (09:00)
[2022-12-21] MEDS: ACIDOPHILUS/BULGARICUS CHEW TAB GT SCH ×2 (09:40→20:45)
[2022-12-21] MEDS: REMEDY ESSENTIAL ZINC PASTE 113 GM TP SCH ×2 (09:41→20:42)
[2022-12-21] MEDS: VITAMINS A AND D OINT 42 GM TUBE TP SCH ×2 (09:41→20:42)
[2022-12-21] MEDS: METOPROLOL TARTRATE 25 MG TABLET GT SCH ×2 (09:46→20:41)
[2022-12-21] MEDS: SODIUM CHLORIDE 1,000 MG TABLET GT SCH ×3 (09:47→17:53)
[2022-12-21] MEDS: ACETAMINOPHEN 650 MG/20 ML UDC- SA PATIENTS-PAIN ONLY GT PRN (10:00)
[2022-12-21] MEDS: NUTRISOURCE FIBER 4 GM PACKET GT SCH (20:41)
[2022-12-21] MEDS: MULTIVIT, IRON, MIN NO. 8, FA TABLET GT SCH (20:42)
[2022-12-21] MEDS: ATORVASTATIN 20 MG TABLET GT SCH (20:45)
[2022-12-21] MEDS: diphenhydrAMINE 25 MG/10 ML UDC GT PRN (20:47)
[2022-12-22] VITALS (10 sets, daily range): TEMP 97.4–97.5; O2SAT 97–99
[2022-12-22] MEDS: ALBUTEROL SULFATE 2.5 MG/3 ML NEBU NEB SCH ×4 (00:44→19:13)
[2022-12-22] MEDS: VITAL AF 1.2 1,000 ML LIQUID GT PRN (03:37)
[2022-12-22] MEDS: OMEPRAZOLE 20 MG CAPSULE.DR GT SCH ×2 (06:29→17:02)
[2022-12-22] MEDS: BACLOFEN 10 MG TABLET GT SCH ×3 (06:29→22:10)
[2022-12-22] MEDS: HYDROGEN PEROXIDE 3% 118 ML BOTTLE TP SCH ×2 (08:03→19:13)
[2022-12-22] MEDS: LOSARTAN POTASSIUM 25 MG TABLET GT SCH (09:11)
[2022-12-22] MEDS: ACIDOPHILUS/BULGARICUS CHEW TAB GT SCH ×2 (09:11→20:37)
[2022-12-22] MEDS: SODIUM CHLORIDE 1,000 MG TABLET GT SCH ×3 (09:12→17:02)
[2022-12-22] MEDS: VITAMINS A AND D OINT 42 GM TUBE TP SCH ×2 (09:12→20:38)
[2022-12-22] MEDS: REMEDY ESSENTIAL ZINC PASTE 113 GM TP SCH ×2 (09:12→20:38)
[2022-12-22] MEDS: METOPROLOL TARTRATE 25 MG TABLET GT SCH ×2 (09:12→21:00)
[2022-12-22] MEDS: ACETAMINOPHEN 650 MG/20 ML UDC- SA PATIENTS-PAIN ONLY GT PRN (13:05)
[2022-12-22] MEDS: NUTRISOURCE FIBER 4 GM PACKET GT SCH (20:37)
[2022-12-22] MEDS: ATORVASTATIN 20 MG TABLET GT SCH (20:37)
[2022-12-23] VITALS (10 sets, daily range): TEMP 97.5–98.4; O2SAT 97–99
[2022-12-23] MEDS: ALBUTEROL SULFATE 2.5 MG/3 ML NEBU NEB SCH ×4 (01:45→19:16)
[2022-12-23] MEDS: VITAL AF 1.2 1,000 ML LIQUID GT PRN (03:20)
[2022-12-23] MEDS: BACLOFEN 10 MG TABLET GT SCH ×3 (06:19→22:09)
[2022-12-23] MEDS: OMEPRAZOLE 20 MG CAPSULE.DR GT SCH ×2 (06:19→17:20)
[2022-12-23] MEDS: LOSARTAN POTASSIUM 25 MG TABLET GT SCH (08:54)
[2022-12-23] MEDS: VITAMINS A AND D OINT 42 GM TUBE TP SCH ×2 (08:54→20:27)
[2022-12-23] MEDS: ACIDOPHILUS/BULGARICUS CHEW TAB GT SCH ×2 (08:54→20:25)
[2022-12-23] MEDS: REMEDY ESSENTIAL ZINC PASTE 113 GM TP SCH ×2 (08:54→20:27)
[2022-12-23] MEDS: METOPROLOL TARTRATE 25 MG TABLET GT SCH ×2 (08:54→20:26)
[2022-12-23] MEDS: SODIUM CHLORIDE 1,000 MG TABLET GT SCH ×3 (08:54→17:20)
[2022-12-23] MEDS: HYDROGEN PEROXIDE 3% 118 ML BOTTLE TP SCH ×2 (09:00→19:16)
[2022-12-23] MEDS: ATORVASTATIN 20 MG TABLET GT SCH (20:25)
[2022-12-23] MEDS: NUTRISOURCE FIBER 4 GM PACKET GT SCH (20:26)
[2022-12-23] MEDS: MULTIVIT, IRON, MIN NO. 8, FA TABLET GT SCH (20:26)
[2022-12-24] VITALS (9 sets, daily range): TEMP 97.4–97.5; O2SAT 97–99
[2022-12-24] MEDS: VITAL AF 1.2 1,000 ML LIQUID GT PRN (00:40)
[2022-12-24] MEDS: ALBUTEROL SULFATE 2.5 MG/3 ML NEBU NEB SCH ×4 (01:30→19:13)
[2022-12-24] MEDS: BACLOFEN 10 MG TABLET GT SCH ×3 (05:49→22:08)
[2022-12-24] MEDS: OMEPRAZOLE 20 MG CAPSULE.DR GT SCH ×2 (05:49→17:20)
[2022-12-24] MEDS: HYDROGEN PEROXIDE 3% 118 ML BOTTLE TP SCH ×2 (07:13→19:13)
[2022-12-24] MEDS: REMEDY ESSENTIAL ZINC PASTE 113 GM TP SCH ×2 (09:23→20:20)
[2022-12-24] MEDS: ACIDOPHILUS/BULGARICUS CHEW TAB GT SCH ×2 (09:23→20:18)
[2022-12-24] MEDS: VITAMINS A AND D OINT 42 GM TUBE TP SCH ×2 (09:23→20:20)
[2022-12-24] MEDS: LOSARTAN POTASSIUM 25 MG TABLET GT SCH (09:23)
[2022-12-24] MEDS: SODIUM CHLORIDE 1,000 MG TABLET GT SCH ×3 (09:23→16:54)
[2022-12-24] MEDS: METOPROLOL TARTRATE 25 MG TABLET GT SCH ×2 (09:23→20:19)
[2022-12-24] MEDS: ATORVASTATIN 20 MG TABLET GT SCH (20:18)
[2022-12-24] MEDS: NUTRISOURCE FIBER 4 GM PACKET GT SCH (20:19)
[2022-12-25] VITALS (10 sets, daily range): TEMP 97.4–97.6; O2SAT 96–99
[2022-12-25] MEDS: ALBUTEROL SULFATE 2.5 MG/3 ML NEBU NEB SCH ×4 (00:53→19:07)
[2022-12-25] MEDS: OMEPRAZOLE 20 MG CAPSULE.DR GT SCH ×2 (05:23→17:19)
[2022-12-25] MEDS: BACLOFEN 10 MG TABLET GT SCH ×3 (05:23→22:06)
[2022-12-25] MEDS: HYDROGEN PEROXIDE 3% 118 ML BOTTLE TP SCH ×2 (08:19→19:07)
[2022-12-25] MEDS: METOPROLOL TARTRATE 25 MG TABLET GT SCH ×2 (09:00→21:00)
[2022-12-25] MEDS: ACIDOPHILUS/BULGARICUS CHEW TAB GT SCH ×2 (09:31→21:00)
[2022-12-25] MEDS: LOSARTAN POTASSIUM 25 MG TABLET GT SCH (09:31)
[2022-12-25] MEDS: SODIUM CHLORIDE 1,000 MG TABLET GT SCH ×3 (09:32→17:19)
[2022-12-25] MEDS: VITAMINS A AND D OINT 42 GM TUBE TP SCH ×2 (09:32→21:00)
[2022-12-25] MEDS: REMEDY ESSENTIAL ZINC PASTE 113 GM TP SCH ×2 (09:32→21:00)
[2022-12-25] MEDS: VITAL AF 1.2 1,000 ML LIQUID GT PRN (13:54)
[2022-12-25] MEDS: ATORVASTATIN 20 MG TABLET GT SCH (21:00)
[2022-12-25] MEDS: NUTRISOURCE FIBER 4 GM PACKET GT SCH (21:00)
[2022-12-25] MEDS: MULTIVIT, IRON, MIN NO. 8, FA TABLET GT SCH (21:00)
[2022-12-25] MEDS: ACETAMINOPHEN 650 MG/20 ML UDC- SA PATIENTS-PAIN ONLY GT PRN (22:06)
[2022-12-26] VITALS (9 sets, daily range): TEMP 97.5–98.4; O2SAT 96–99
[2022-12-26] MEDS: ALBUTEROL SULFATE 2.5 MG/3 ML NEBU NEB SCH ×4 (00:39→19:04)
[2022-12-26] MEDS: OMEPRAZOLE 20 MG CAPSULE.DR GT SCH ×2 (05:02→17:14)
[2022-12-26] MEDS: BACLOFEN 10 MG TABLET GT SCH ×3 (05:02→21:27)
[2022-12-26] MEDS: ACIDOPHILUS/BULGARICUS CHEW TAB GT SCH ×2 (08:04→20:25)
[2022-12-26] MEDS: LOSARTAN POTASSIUM 25 MG TABLET GT SCH (08:04)
[2022-12-26] MEDS: METOPROLOL TARTRATE 25 MG TABLET GT SCH ×2 (08:05→20:27)
[2022-12-26] MEDS: REMEDY ESSENTIAL ZINC PASTE 113 GM TP SCH ×2 (08:05→20:28)
[2022-12-26] MEDS: SODIUM CHLORIDE 1,000 MG TABLET GT SCH ×3 (08:05→17:13)
[2022-12-26] MEDS: VITAMINS A AND D OINT 42 GM TUBE TP SCH ×2 (08:05→20:28)
[2022-12-26] MEDS: HYDROGEN PEROXIDE 3% 118 ML BOTTLE TP SCH ×2 (08:12→19:04)
[2022-12-26] MEDS: VITAL AF 1.2 1,000 ML LIQUID GT PRN (12:29)
[2022-12-26] MEDS: ATORVASTATIN 20 MG TABLET GT SCH (20:27)
[2022-12-26] MEDS: NUTRISOURCE FIBER 4 GM PACKET GT SCH (20:27)
[2022-12-27] VITALS (10 sets, daily range): TEMP 97.8–98.1; O2SAT 96–99
[2022-12-27] MEDS: ALBUTEROL SULFATE 2.5 MG/3 ML NEBU NEB SCH ×4 (00:40→19:08)
[2022-12-27] MEDS: BACLOFEN 10 MG TABLET GT SCH ×3 (05:11→21:05)
[2022-12-27] MEDS: OMEPRAZOLE 20 MG CAPSULE.DR GT SCH ×2 (05:11→17:21)
[2022-12-27] MEDS: HYDROGEN PEROXIDE 3% 118 ML BOTTLE TP SCH ×2 (07:16→19:09)
[2022-12-27] MEDS: ACIDOPHILUS/BULGARICUS CHEW TAB GT SCH ×2 (09:22→21:04)
[2022-12-27] MEDS: VITAMINS A AND D OINT 42 GM TUBE TP SCH ×2 (09:22→21:04)
[2022-12-27] MEDS: LOSARTAN POTASSIUM 25 MG TABLET GT SCH (09:22)
[2022-12-27] MEDS: REMEDY ESSENTIAL ZINC PASTE 113 GM TP SCH ×2 (09:22→21:04)
[2022-12-27] MEDS: METOPROLOL TARTRATE 25 MG TABLET GT SCH ×2 (09:22→21:07)
[2022-12-27] MEDS: SODIUM CHLORIDE 1,000 MG TABLET GT SCH ×3 (09:22→17:21)
[2022-12-27] MEDS: VITAL AF 1.2 1,000 ML LIQUID GT PRN (13:19)
[2022-12-27] MEDS: NUTRISOURCE FIBER 4 GM PACKET GT SCH (21:04)
[2022-12-27] MEDS: MULTIVIT, IRON, MIN NO. 8, FA TABLET GT SCH (21:04)
[2022-12-27] MEDS: ATORVASTATIN 20 MG TABLET GT SCH (21:07)
[2022-12-27] MEDS: diphenhydrAMINE 25 MG/10 ML UDC GT PRN (22:30)
[2022-12-28] VITALS (10 sets, daily range): TEMP 97.9–98.2; O2SAT 95–99
[2022-12-28] MEDS: ALBUTEROL SULFATE 2.5 MG/3 ML NEBU NEB SCH ×4 (01:30→20:13)
[2022-12-28] MEDS: BACLOFEN 10 MG TABLET GT SCH ×3 (05:13→21:54)
[2022-12-28] MEDS: OMEPRAZOLE 20 MG CAPSULE.DR GT SCH ×2 (05:13→17:55)
[2022-12-28] MEDS: HYDROGEN PEROXIDE 3% 118 ML BOTTLE TP SCH ×2 (07:36→20:42)
[2022-12-28] MEDS: SODIUM CHLORIDE 1,000 MG TABLET GT SCH ×3 (09:36→17:55)
[2022-12-28] MEDS: REMEDY ESSENTIAL ZINC PASTE 113 GM TP SCH ×2 (09:36→21:49)
[2022-12-28] MEDS: METOPROLOL TARTRATE 25 MG TABLET GT SCH ×2 (09:36→21:48)
[2022-12-28] MEDS: ACIDOPHILUS/BULGARICUS CHEW TAB GT SCH ×2 (09:36→21:49)
[2022-12-28] MEDS: LOSARTAN POTASSIUM 25 MG TABLET GT SCH (09:36)
[2022-12-28] MEDS: VITAMINS A AND D OINT 42 GM TUBE TP SCH ×2 (09:37→21:49)
[2022-12-28] MEDS: VITAL AF 1.2 1,000 ML LIQUID GT PRN (09:42)
[2022-12-28] MEDS: ATORVASTATIN 20 MG TABLET GT SCH (21:48)
[2022-12-28] MEDS: NUTRISOURCE FIBER 4 GM PACKET GT SCH (21:49)
[2022-12-29] VITALS (10 sets, daily range): TEMP 98–98.2; O2SAT 96–99
[2022-12-29] MEDS: ALBUTEROL SULFATE 2.5 MG/3 ML NEBU NEB SCH ×4 (02:30→19:15)
[2022-12-29] MEDS: BACLOFEN 10 MG TABLET GT SCH ×3 (06:13→21:01)
[2022-12-29] MEDS: OMEPRAZOLE 20 MG CAPSULE.DR GT SCH ×2 (06:13→17:33)
[2022-12-29] MEDS: HYDROGEN PEROXIDE 3% 118 ML BOTTLE TP SCH ×2 (07:45→19:15)
[2022-12-29] MEDS: METOPROLOL TARTRATE 25 MG TABLET GT SCH ×2 (09:00→20:57)
[2022-12-29] MEDS: LOSARTAN POTASSIUM 25 MG TABLET GT SCH (09:00)
[2022-12-29] MEDS: ACIDOPHILUS/BULGARICUS CHEW TAB GT SCH ×2 (09:24→20:55)
[2022-12-29] MEDS: REMEDY ESSENTIAL ZINC PASTE 113 GM TP SCH ×2 (09:30→20:58)
[2022-12-29] MEDS: VITAMINS A AND D OINT 42 GM TUBE TP SCH ×2 (09:30→20:58)
[2022-12-29] MEDS: SODIUM CHLORIDE 1,000 MG TABLET GT SCH ×3 (09:33→17:33)
[2022-12-29] MEDS: ATORVASTATIN 20 MG TABLET GT SCH (20:56)
[2022-12-29] MEDS: MULTIVIT, IRON, MIN NO. 8, FA TABLET GT SCH (20:57)
[2022-12-29] MEDS: NUTRISOURCE FIBER 4 GM PACKET GT SCH (20:57)
[2022-12-30] VITALS (9 sets, daily range): TEMP 98.3–98.4; O2SAT 96–99
[2022-12-30] MEDS: ALBUTEROL SULFATE 2.5 MG/3 ML NEBU NEB SCH ×4 (00:41→19:19)
[2022-12-30] MEDS: VITAL AF 1.2 1,000 ML LIQUID GT PRN (04:05)
[2022-12-30] MEDS: OMEPRAZOLE 20 MG CAPSULE.DR GT SCH ×2 (06:00→17:45)
[2022-12-30] MEDS: BACLOFEN 10 MG TABLET GT SCH ×3 (06:00→22:00)
[2022-12-30] MEDS: HYDROGEN PEROXIDE 3% 118 ML BOTTLE TP SCH ×2 (07:21→19:19)
[2022-12-30] MEDS: METOPROLOL TARTRATE 25 MG TABLET GT SCH ×2 (09:00→20:44)
[2022-12-30] MEDS: REMEDY ESSENTIAL ZINC PASTE 113 GM TP SCH ×2 (09:06→20:42)
[2022-12-30] MEDS: VITAMINS A AND D OINT 42 GM TUBE TP SCH ×2 (09:06→20:42)
[2022-12-30] MEDS: ACIDOPHILUS/BULGARICUS CHEW TAB GT SCH ×2 (09:06→20:38)
[2022-12-30] MEDS: SODIUM CHLORIDE 1,000 MG TABLET GT SCH ×3 (09:06→17:44)
[2022-12-30] MEDS: LOSARTAN POTASSIUM 25 MG TABLET GT SCH (09:06)
[2022-12-30] MEDS: NUTRISOURCE FIBER 4 GM PACKET GT SCH (20:41)
[2022-12-30] MEDS: ATORVASTATIN 20 MG TABLET GT SCH (20:43)
[2022-12-31] VITALS (10 sets, daily range): TEMP 98.1–98.2; O2SAT 97–99
[2022-12-31] MEDS: ALBUTEROL SULFATE 2.5 MG/3 ML NEBU NEB SCH ×4 (00:31→19:23)
[2022-12-31] MEDS: VITAL AF 1.2 1,000 ML LIQUID GT PRN (01:19)
[2022-12-31] MEDS: BACLOFEN 10 MG TABLET GT SCH ×3 (05:36→21:27)
[2022-12-31] MEDS: OMEPRAZOLE 20 MG CAPSULE.DR GT SCH ×2 (05:37→17:03)
[2022-12-31] MEDS: HYDROGEN PEROXIDE 3% 118 ML BOTTLE TP SCH ×2 (09:00→19:23)
[2022-12-31] MEDS: LOSARTAN POTASSIUM 25 MG TABLET GT SCH (09:27)
[2022-12-31] MEDS: ACIDOPHILUS/BULGARICUS CHEW TAB GT SCH ×2 (09:27→21:26)
[2022-12-31] MEDS: METOPROLOL TARTRATE 25 MG TABLET GT SCH ×2 (09:28→21:31)
[2022-12-31] MEDS: VITAMINS A AND D OINT 42 GM TUBE TP SCH ×2 (09:28→21:27)
[2022-12-31] MEDS: SODIUM CHLORIDE 1,000 MG TABLET GT SCH ×3 (09:28→17:03)
[2022-12-31] MEDS: REMEDY ESSENTIAL ZINC PASTE 113 GM TP SCH ×2 (09:28→21:31)
[2022-12-31] MEDS: diphenhydrAMINE 25 MG/10 ML UDC GT PRN (17:40)
[2022-12-31] MEDS: ACETAMINOPHEN 650 MG/20 ML UDC- SA PATIENTS-PAIN ONLY GT PRN (18:22)
[2022-12-31] MEDS: NUTRISOURCE FIBER 4 GM PACKET GT SCH (21:27)
[2022-12-31] MEDS: MULTIVIT, IRON, MIN NO. 8, FA TABLET GT SCH (21:27)
[2022-12-31] MEDS: ATORVASTATIN 20 MG TABLET GT SCH (21:31)
[2023-01-01] VITALS (9 sets, daily range): TEMP 98.1; O2SAT 99
[2023-01-01] MEDS: VITAL AF 1.2 1,000 ML LIQUID GT PRN ×2 (01:31→21:29)
[2023-01-01] MEDS: ALBUTEROL SULFATE 2.5 MG/3 ML NEBU NEB SCH ×4 (01:37→19:12)
[2023-01-01] MEDS: OMEPRAZOLE 20 MG CAPSULE.DR GT SCH ×2 (05:47→17:26)
[2023-01-01] MEDS: BACLOFEN 10 MG TABLET GT SCH ×3 (05:47→21:05)
[2023-01-01] MEDS: METOPROLOL TARTRATE 25 MG TABLET GT SCH ×2 (09:00→21:14)
[2023-01-01] MEDS: LOSARTAN POTASSIUM 25 MG TABLET GT SCH (09:00)
[2023-01-01] MEDS: ACIDOPHILUS/BULGARICUS CHEW TAB GT SCH ×2 (09:29→21:05)
[2023-01-01] MEDS: SODIUM CHLORIDE 1,000 MG TABLET GT SCH ×3 (09:30→17:26)
[2023-01-01] MEDS: REMEDY ESSENTIAL ZINC PASTE 113 GM TP SCH ×2 (09:32→21:05)
[2023-01-01] MEDS: VITAMINS A AND D OINT 42 GM TUBE TP SCH ×2 (09:32→21:05)
[2023-01-01] MEDS: HYDROGEN PEROXIDE 3% 118 ML BOTTLE TP SCH ×2 (10:00→19:12)
[2023-01-01] MEDS: NUTRISOURCE FIBER 4 GM PACKET GT SCH (21:05)
[2023-01-01] MEDS: ATORVASTATIN 20 MG TABLET GT SCH (21:12)
[2023-01-01] MEDS: ACETAMINOPHEN 650 MG/20 ML UDC- SA PATIENTS-PAIN ONLY GT PRN (21:30)
[2023-01-02] VITALS (10 sets, daily range): TEMP 97.7–98.3; O2SAT 99
[2023-01-02] MEDS: ALBUTEROL SULFATE 2.5 MG/3 ML NEBU NEB SCH ×4 (01:53→20:22)
[2023-01-02] MEDS: diphenhydrAMINE 25 MG/10 ML UDC GT PRN (04:11)
[2023-01-02] MEDS: BACLOFEN 10 MG TABLET GT SCH ×3 (05:47→22:50)
[2023-01-02] MEDS: OMEPRAZOLE 20 MG CAPSULE.DR GT SCH ×2 (05:47→17:31)
[2023-01-02] MEDS: HYDROGEN PEROXIDE 3% 118 ML BOTTLE TP SCH ×2 (07:45→20:22)
[2023-01-02] MEDS: LOSARTAN POTASSIUM 25 MG TABLET GT SCH (08:43)
[2023-01-02] MEDS: ACIDOPHILUS/BULGARICUS CHEW TAB GT SCH ×2 (08:43→20:21)
[2023-01-02] MEDS: METOPROLOL TARTRATE 25 MG TABLET GT SCH ×2 (08:44→20:21)
[2023-01-02] MEDS: REMEDY ESSENTIAL ZINC PASTE 113 GM TP SCH ×2 (08:44→20:23)
[2023-01-02] MEDS: VITAMINS A AND D OINT 42 GM TUBE TP SCH ×2 (08:44→20:23)
[2023-01-02] MEDS: SODIUM CHLORIDE 1,000 MG TABLET GT SCH ×3 (08:44→17:31)
[2023-01-02] MEDS: ATORVASTATIN 20 MG TABLET GT SCH (20:21)
[2023-01-02] MEDS: MULTIVIT, IRON, MIN NO. 8, FA TABLET GT SCH (20:22)
[2023-01-02] MEDS: NUTRISOURCE FIBER 4 GM PACKET GT SCH (20:22)
[2023-01-02] MEDS: VITAL AF 1.2 1,000 ML LIQUID GT PRN (21:00)
[2023-01-03] VITALS (9 sets, daily range): TEMP 97.1–98.1; O2SAT 99
[2023-01-03] MEDS: ALBUTEROL SULFATE 2.5 MG/3 ML NEBU NEB SCH ×4 (01:41→19:14)
[2023-01-03] MEDS ORDERED: BACLOFEN 10 MG TABLET ONE (04:53)
[2023-01-03] MEDS: BACLOFEN 10 MG TABLET GT SCH ×3 (05:50→21:05)
[2023-01-03] MEDS: OMEPRAZOLE 20 MG CAPSULE.DR GT SCH ×2 (05:50→17:12)
[2023-01-03] MEDS: HYDROGEN PEROXIDE 3% 118 ML BOTTLE TP SCH ×2 (07:44→19:15)
[2023-01-03] MEDS: LOSARTAN POTASSIUM 25 MG TABLET GT SCH (08:43)
[2023-01-03] MEDS: ACIDOPHILUS/BULGARICUS CHEW TAB GT SCH ×2 (08:43→20:56)
[2023-01-03] MEDS: ASPIRIN 81 MG TAB.CHEW GT SCH (08:43)
[2023-01-03] MEDS: REMEDY ESSENTIAL ZINC PASTE 113 GM TP SCH ×2 (08:44→20:48)
[2023-01-03] MEDS: VITAMINS A AND D OINT 42 GM TUBE TP SCH ×2 (08:44→20:48)
[2023-01-03] MEDS: SODIUM CHLORIDE 1,000 MG TABLET GT SCH ×3 (08:44→17:12)
[2023-01-03] MEDS: METOPROLOL TARTRATE 25 MG TABLET GT SCH ×2 (08:44→20:56)
[2023-01-03] MEDS: CLOPIDOGREL 75 MG TABLET GT SCH (08:44)
[2023-01-03] MEDS: NUTRISOURCE FIBER 4 GM PACKET GT SCH (20:48)
[2023-01-03] MEDS: ATORVASTATIN 20 MG TABLET GT SCH (20:56)
[2023-01-04] VITALS (11 sets, daily range): TEMP 97.6–98.1; O2SAT 98–99
[2023-01-04] MEDS: diphenhydrAMINE 25 MG/10 ML UDC GT PRN (00:32)
[2023-01-04] MEDS: ALBUTEROL SULFATE 2.5 MG/3 ML NEBU NEB SCH ×4 (02:13→21:26)
[2023-01-04] MEDS: OMEPRAZOLE 20 MG CAPSULE.DR GT SCH ×2 (05:15→17:42)
[2023-01-04] MEDS: BACLOFEN 10 MG TABLET GT SCH ×3 (05:15→22:03)
[2023-01-04] MEDS: HYDROGEN PEROXIDE 3% 118 ML BOTTLE TP SCH ×2 (08:04→21:27)
[2023-01-04] MEDS: LOSARTAN POTASSIUM 25 MG TABLET GT SCH (09:06)
[2023-01-04] MEDS: REMEDY ESSENTIAL ZINC PASTE 113 GM TP SCH ×2 (09:06→20:53)
[2023-01-04] MEDS: METOPROLOL TARTRATE 25 MG TABLET GT SCH ×2 (09:06→20:53)
[2023-01-04] MEDS: ACIDOPHILUS/BULGARICUS CHEW TAB GT SCH ×2 (09:06→20:53)
[2023-01-04] MEDS: VITAMINS A AND D OINT 42 GM TUBE TP SCH ×2 (09:06→20:54)
[2023-01-04] MEDS: CLOPIDOGREL 75 MG TABLET GT SCH (09:06)
[2023-01-04] MEDS: SODIUM CHLORIDE 1,000 MG TABLET GT SCH ×3 (09:06→17:42)
[2023-01-04] MEDS: ASPIRIN 81 MG TAB.CHEW GT SCH (09:06)
[2023-01-04] MEDS: ATORVASTATIN 20 MG TABLET GT SCH (20:53)
[2023-01-04] MEDS: NUTRISOURCE FIBER 4 GM PACKET GT SCH (20:53)
[2023-01-04] MEDS: MULTIVIT, IRON, MIN NO. 8, FA TABLET GT SCH (20:53)
[2023-01-05] VITALS (10 sets, daily range): TEMP 97.4; O2SAT 97–99
[2023-01-05] MEDS: ALBUTEROL SULFATE 2.5 MG/3 ML NEBU NEB SCH ×4 (01:43→19:53)
[2023-01-05] MEDS: VITAL AF 1.2 1,000 ML LIQUID GT PRN (03:37)
[2023-01-05] MEDS: OMEPRAZOLE 20 MG CAPSULE.DR GT SCH ×2 (06:31→17:38)
[2023-01-05] MEDS: BACLOFEN 10 MG TABLET GT SCH ×3 (06:31→22:44)
[2023-01-05] MEDS: HYDROGEN PEROXIDE 3% 118 ML BOTTLE TP SCH ×2 (07:29→21:09)
[2023-01-05] MEDS: METOPROLOL TARTRATE 25 MG TABLET GT SCH ×2 (09:39→20:40)
[2023-01-05] MEDS: LOSARTAN POTASSIUM 25 MG TABLET GT SCH (09:39)
[2023-01-05] MEDS: SODIUM CHLORIDE 1,000 MG TABLET GT SCH ×3 (09:39→17:38)
[2023-01-05] MEDS: CLOPIDOGREL 75 MG TABLET GT SCH (09:39)
[2023-01-05] MEDS: VITAMINS A AND D OINT 42 GM TUBE TP SCH ×2 (09:39→20:40)
[2023-01-05] MEDS: REMEDY ESSENTIAL ZINC PASTE 113 GM TP SCH ×2 (09:39→20:40)
[2023-01-05] MEDS: ACIDOPHILUS/BULGARICUS CHEW TAB GT SCH ×2 (09:39→20:39)
[2023-01-05] MEDS: ASPIRIN 81 MG TAB.CHEW GT SCH (09:39)
[2023-01-05] MEDS: ATORVASTATIN 20 MG TABLET GT SCH (20:39)
[2023-01-05] MEDS: NUTRISOURCE FIBER 4 GM PACKET GT SCH (20:40)
[2023-01-06] VITALS (8 sets, daily range): TEMP 98.1–98.3; O2SAT 98–99
[2023-01-06] MEDS: ALBUTEROL SULFATE 2.5 MG/3 ML NEBU NEB SCH ×4 (01:34→19:30)
[2023-01-06] MEDS: VITAL AF 1.2 1,000 ML LIQUID GT PRN (03:07)
[2023-01-06] MEDS: BACLOFEN 10 MG TABLET GT SCH ×3 (06:03→22:00)
[2023-01-06] MEDS: OMEPRAZOLE 20 MG CAPSULE.DR GT SCH ×2 (06:03→17:58)
[2023-01-06] MEDS: HYDROGEN PEROXIDE 3% 118 ML BOTTLE TP SCH ×2 (08:02→21:00)
[2023-01-06] MEDS: ASPIRIN 81 MG TAB.CHEW GT SCH (09:39)
[2023-01-06] MEDS: ACIDOPHILUS/BULGARICUS CHEW TAB GT SCH ×2 (09:40→21:00)
[2023-01-06] MEDS: SODIUM CHLORIDE 1,000 MG TABLET GT SCH ×3 (09:45→17:58)
[2023-01-06] MEDS: METOPROLOL TARTRATE 25 MG TABLET GT SCH ×2 (09:55→21:00)
[2023-01-06] MEDS: CLOPIDOGREL 75 MG TABLET GT SCH (09:55)
[2023-01-06] MEDS: REMEDY ESSENTIAL ZINC PASTE 113 GM TP SCH ×2 (09:56→21:00)
[2023-01-06] MEDS: VITAMINS A AND D OINT 42 GM TUBE TP SCH ×2 (09:56→21:00)
[2023-01-06] MEDS: LOSARTAN POTASSIUM 25 MG TABLET GT SCH (09:56)
[2023-01-06] MEDS: diphenhydrAMINE 25 MG/10 ML UDC GT PRN (11:58)
[2023-01-06] MEDS: ATORVASTATIN 20 MG TABLET GT SCH (21:00)
[2023-01-06] MEDS: NUTRISOURCE FIBER 4 GM PACKET GT SCH (21:00)
[2023-01-06] MEDS: MULTIVIT, IRON, MIN NO. 8, FA TABLET GT SCH (21:00)
[2023-01-07] VITALS (10 sets, daily range): BP systolic 135; BP diastolic 75; TEMP 98.1–98.9; O2SAT 96–99
[2023-01-07] MEDS: ALBUTEROL SULFATE 2.5 MG/3 ML NEBU NEB SCH ×4 (01:00→21:33)
[2023-01-07] MEDS: BACLOFEN 10 MG TABLET GT SCH ×3 (06:24→22:03)
[2023-01-07] MEDS: OMEPRAZOLE 20 MG CAPSULE.DR GT SCH ×2 (06:24→17:11)
[2023-01-07] MEDS: HYDROGEN PEROXIDE 3% 118 ML BOTTLE TP SCH ×2 (08:14→21:34)
[2023-01-07] MEDS: METOPROLOL TARTRATE 25 MG TABLET GT SCH ×2 (09:00→21:00)
[2023-01-07] MEDS: LOSARTAN POTASSIUM 25 MG TABLET GT SCH (09:00)
[2023-01-07] MEDS: ASPIRIN 81 MG TAB.CHEW GT SCH (09:42)
[2023-01-07] MEDS: ACIDOPHILUS/BULGARICUS CHEW TAB GT SCH ×2 (09:54→21:00)
[2023-01-07] MEDS: CLOPIDOGREL 75 MG TABLET GT SCH (09:58)
[2023-01-07] MEDS: VITAMINS A AND D OINT 42 GM TUBE TP SCH ×2 (09:58→21:00)
[2023-01-07] MEDS: REMEDY ESSENTIAL ZINC PASTE 113 GM TP SCH ×2 (09:58→21:00)
[2023-01-07] MEDS: SODIUM CHLORIDE 1,000 MG TABLET GT SCH ×3 (09:58→17:15)
[2023-01-07] MEDS: ATORVASTATIN 20 MG TABLET GT SCH (21:00)
[2023-01-07] MEDS: NUTRISOURCE FIBER 4 GM PACKET GT SCH (21:00)
[2023-01-07] MEDS: VITAL AF 1.2 1,000 ML LIQUID GT PRN ×2 (23:25→23:32)
[2023-01-08] VITALS (10 sets, daily range): TEMP 97.5–98; O2SAT 98–99
[2023-01-08] MEDS: ALBUTEROL SULFATE 2.5 MG/3 ML NEBU NEB SCH ×4 (01:29→22:19)
[2023-01-08] MEDS: OMEPRAZOLE 20 MG CAPSULE.DR GT SCH ×2 (05:12→17:29)
[2023-01-08] MEDS: BACLOFEN 10 MG TABLET GT SCH ×3 (05:12→21:27)
[2023-01-08] MEDS: HYDROGEN PEROXIDE 3% 118 ML BOTTLE TP SCH ×2 (07:51→22:20)
[2023-01-08] MEDS: LOSARTAN POTASSIUM 25 MG TABLET GT SCH (08:49)
[2023-01-08] MEDS: METOPROLOL TARTRATE 25 MG TABLET GT SCH ×2 (08:49→21:26)
[2023-01-08] MEDS: ASPIRIN 81 MG TAB.CHEW GT SCH (08:49)
[2023-01-08] MEDS: ACIDOPHILUS/BULGARICUS CHEW TAB GT SCH ×2 (08:49→21:24)
[2023-01-08] MEDS: SODIUM CHLORIDE 1,000 MG TABLET GT SCH ×3 (08:50→17:29)
[2023-01-08] MEDS: VITAMINS A AND D OINT 42 GM TUBE TP SCH ×2 (08:50→21:27)
[2023-01-08] MEDS: REMEDY ESSENTIAL ZINC PASTE 113 GM TP SCH ×2 (08:50→21:27)
[2023-01-08] MEDS: CLOPIDOGREL 75 MG TABLET GT SCH (08:50)
[2023-01-08] MEDS: ATORVASTATIN 20 MG TABLET GT SCH (21:25)
[2023-01-08] MEDS: MULTIVIT, IRON, MIN NO. 8, FA TABLET GT SCH (21:26)
[2023-01-08] MEDS: NUTRISOURCE FIBER 4 GM PACKET GT SCH (21:26)
[2023-01-08] MEDS: VITAL AF 1.2 1,000 ML LIQUID GT PRN (21:40)
[2023-01-09] VITALS (13 sets, daily range): BP systolic 127; BP diastolic 68; TEMP 97.6–98.9; O2SAT 98–99
[2023-01-09] MEDS: ALBUTEROL SULFATE 2.5 MG/3 ML NEBU NEB SCH ×4 (02:13→20:03)
[2023-01-09] MEDS: BACLOFEN 10 MG TABLET GT SCH ×3 (06:24→22:01)
[2023-01-09] MEDS: OMEPRAZOLE 20 MG CAPSULE.DR GT SCH ×2 (06:25→17:02)
[2023-01-09] MEDS: HYDROGEN PEROXIDE 3% 118 ML BOTTLE TP SCH ×2 (08:25→22:08)
[2023-01-09] MEDS: REMEDY ESSENTIAL ZINC PASTE 113 GM TP SCH ×2 (08:59→21:00)
[2023-01-09] MEDS: VITAMINS A AND D OINT 42 GM TUBE TP SCH ×2 (08:59→21:00)
[2023-01-09] MEDS: LOSARTAN POTASSIUM 25 MG TABLET GT SCH (08:59)
[2023-01-09] MEDS: SODIUM CHLORIDE 1,000 MG TABLET GT SCH ×3 (08:59→17:02)
[2023-01-09] MEDS: ASPIRIN 81 MG TAB.CHEW GT SCH (08:59)
[2023-01-09] MEDS: CLOPIDOGREL 75 MG TABLET GT SCH (08:59)
[2023-01-09] MEDS: ACIDOPHILUS/BULGARICUS CHEW TAB GT SCH ×2 (08:59→21:00)
[2023-01-09] MEDS: METOPROLOL TARTRATE 25 MG TABLET GT SCH ×2 (08:59→21:00)
[2023-01-09] MEDS: NUTRISOURCE FIBER 4 GM PACKET GT SCH (21:00)
[2023-01-09] MEDS: ATORVASTATIN 20 MG TABLET GT SCH (21:00)
[2023-01-09] MEDS: VITAL AF 1.2 1,000 ML LIQUID GT PRN (22:07)
[2023-01-09] MEDS: diphenhydrAMINE 25 MG/10 ML UDC GT PRN (22:08)
[2023-01-10] VITALS (10 sets, daily range): TEMP 98.6–98.7; O2SAT 94–99
[2023-01-10] MEDS: ALBUTEROL SULFATE 2.5 MG/3 ML NEBU NEB SCH ×4 (00:43→19:10)
[2023-01-10] MEDS: BACLOFEN 10 MG TABLET GT SCH ×3 (05:45→22:10)
[2023-01-10] MEDS: OMEPRAZOLE 20 MG CAPSULE.DR GT SCH ×2 (05:46→18:32)
[2023-01-10] MEDS: HYDROGEN PEROXIDE 3% 118 ML BOTTLE TP SCH ×2 (07:23→19:10)
[2023-01-10] MEDS: CLOPIDOGREL 75 MG TABLET GT SCH (09:00)
[2023-01-10] MEDS: REMEDY ESSENTIAL ZINC PASTE 113 GM TP SCH ×2 (09:00→21:00)
[2023-01-10] MEDS: SODIUM CHLORIDE 1,000 MG TABLET GT SCH ×3 (09:00→17:00)
[2023-01-10] MEDS: ASPIRIN 81 MG TAB.CHEW GT SCH (09:00)
[2023-01-10] MEDS: ACIDOPHILUS/BULGARICUS CHEW TAB GT SCH ×2 (09:00→21:00)
[2023-01-10] MEDS: METOPROLOL TARTRATE 25 MG TABLET GT SCH ×2 (09:00→21:00)
[2023-01-10] MEDS: LOSARTAN POTASSIUM 25 MG TABLET GT SCH (09:00)
[2023-01-10] MEDS: VITAMINS A AND D OINT 42 GM TUBE TP SCH ×2 (09:00→21:00)
[2023-01-10] MEDS: MULTIVIT, IRON, MIN NO. 8, FA TABLET GT SCH (21:00)
[2023-01-10] MEDS: NUTRISOURCE FIBER 4 GM PACKET GT SCH (21:00)
[2023-01-10] MEDS: ATORVASTATIN 20 MG TABLET GT SCH (21:00)
[2023-01-10] MEDS: VITAL AF 1.2 1,000 ML LIQUID GT PRN (22:17)
[2023-01-11] VITALS (10 sets, daily range): TEMP 98–98.2; O2SAT 94–99
[2023-01-11] MEDS: ALBUTEROL SULFATE 2.5 MG/3 ML NEBU NEB SCH ×4 (01:37→20:20)
[2023-01-11] MEDS: diphenhydrAMINE 25 MG/10 ML UDC GT PRN (02:35)
[2023-01-11] MEDS: BACLOFEN 10 MG TABLET GT SCH ×3 (06:22→21:37)
[2023-01-11] MEDS: OMEPRAZOLE 20 MG CAPSULE.DR GT SCH ×2 (06:22→17:18)
[2023-01-11] MEDS: HYDROGEN PEROXIDE 3% 118 ML BOTTLE TP SCH ×2 (07:24→20:42)
[2023-01-11] MEDS: METOPROLOL TARTRATE 25 MG TABLET GT SCH ×2 (09:00→21:00)
[2023-01-11] MEDS: ASPIRIN 81 MG TAB.CHEW GT SCH (09:14)
[2023-01-11] MEDS: LOSARTAN POTASSIUM 25 MG TABLET GT SCH (09:16)
[2023-01-11] MEDS: ACIDOPHILUS/BULGARICUS CHEW TAB GT SCH ×2 (09:20→21:36)
[2023-01-11] MEDS: CLOPIDOGREL 75 MG TABLET GT SCH (09:22)
[2023-01-11] MEDS: REMEDY ESSENTIAL ZINC PASTE 113 GM TP SCH ×2 (09:22→21:37)
[2023-01-11] MEDS: SODIUM CHLORIDE 1,000 MG TABLET GT SCH ×3 (09:22→16:22)
[2023-01-11] MEDS: VITAMINS A AND D OINT 42 GM TUBE TP SCH ×2 (09:22→21:37)
[2023-01-11] MEDS: VITAL AF 1.2 1,000 ML LIQUID GT PRN (18:44)
[2023-01-11] MEDS: NUTRISOURCE FIBER 4 GM PACKET GT SCH (21:37)
[2023-01-11] MEDS: ATORVASTATIN 20 MG TABLET GT SCH (21:44)
[2023-01-12] VITALS (10 sets, daily range): TEMP 97.5–97.7; O2SAT 96–99
[2023-01-12] MEDS: ALBUTEROL SULFATE 2.5 MG/3 ML NEBU NEB SCH ×4 (01:02→19:43)
[2023-01-12] MEDS: diphenhydrAMINE 25 MG/10 ML UDC GT PRN (05:29)
[2023-01-12] MEDS: OMEPRAZOLE 20 MG CAPSULE.DR GT SCH ×2 (05:29→17:27)
[2023-01-12] MEDS: BACLOFEN 10 MG TABLET GT SCH ×3 (05:29→21:03)
[2023-01-12] MEDS: HYDROGEN PEROXIDE 3% 118 ML BOTTLE TP SCH ×2 (08:13→20:45)
[2023-01-12] MEDS: ASPIRIN 81 MG TAB.CHEW GT SCH (09:05)
[2023-01-12] MEDS: LOSARTAN POTASSIUM 25 MG TABLET GT SCH (09:06)
[2023-01-12] MEDS: ACIDOPHILUS/BULGARICUS CHEW TAB GT SCH ×2 (09:06→20:46)
[2023-01-12] MEDS: VITAMINS A AND D OINT 42 GM TUBE TP SCH ×2 (09:08→20:48)
[2023-01-12] MEDS: SODIUM CHLORIDE 1,000 MG TABLET GT SCH ×3 (09:08→16:22)
[2023-01-12] MEDS: CLOPIDOGREL 75 MG TABLET GT SCH (09:08)
[2023-01-12] MEDS: METOPROLOL TARTRATE 25 MG TABLET GT SCH ×2 (09:08→20:52)
[2023-01-12] MEDS: REMEDY ESSENTIAL ZINC PASTE 113 GM TP SCH ×2 (09:08→20:48)
[2023-01-12] MEDS: VITAL AF 1.2 1,000 ML LIQUID GT PRN (17:27)
[2023-01-12] MEDS: ATORVASTATIN 20 MG TABLET GT SCH (20:46)
[2023-01-12] MEDS: NUTRISOURCE FIBER 4 GM PACKET GT SCH (20:47)
[2023-01-12] MEDS: MULTIVIT, IRON, MIN NO. 8, FA TABLET GT SCH (20:48)
[2023-01-13] VITALS (9 sets, daily range): TEMP 97.6–98.3; O2SAT 96–99
[2023-01-13] MEDS: ALBUTEROL SULFATE 2.5 MG/3 ML NEBU NEB SCH ×4 (01:19→19:23)
[2023-01-13] MEDS: OMEPRAZOLE 20 MG CAPSULE.DR GT SCH ×2 (05:51→17:10)
[2023-01-13] MEDS: BACLOFEN 10 MG TABLET GT SCH ×3 (05:51→22:25)
[2023-01-13] MEDS: HYDROGEN PEROXIDE 3% 118 ML BOTTLE TP SCH ×2 (07:49→20:30)
[2023-01-13] MEDS: VITAMINS A AND D OINT 42 GM TUBE TP SCH ×2 (09:00→20:30)
[2023-01-13] MEDS: METOPROLOL TARTRATE 25 MG TABLET GT SCH ×2 (09:00→20:31)
[2023-01-13] MEDS: LOSARTAN POTASSIUM 25 MG TABLET GT SCH (09:00)
[2023-01-13] MEDS: REMEDY ESSENTIAL ZINC PASTE 113 GM TP SCH ×2 (09:00→20:30)
[2023-01-13] MEDS: SODIUM CHLORIDE 1,000 MG TABLET GT SCH ×3 (09:00→17:10)
[2023-01-13] MEDS: ASPIRIN 81 MG TAB.CHEW GT SCH (09:00)
[2023-01-13] MEDS: CLOPIDOGREL 75 MG TABLET GT SCH (09:00)
[2023-01-13] MEDS: ACIDOPHILUS/BULGARICUS CHEW TAB GT SCH ×2 (09:00→20:28)
[2023-01-13] MEDS: NUTRISOURCE FIBER 4 GM PACKET GT SCH (20:30)
[2023-01-13] MEDS: ATORVASTATIN 20 MG TABLET GT SCH (20:31)
[2023-01-14] VITALS (10 sets, daily range): TEMP 97.9–98.6; O2SAT 97–99
[2023-01-14] MEDS: ALBUTEROL SULFATE 2.5 MG/3 ML NEBU NEB SCH ×4 (01:22→19:40)
[2023-01-14] MEDS: BACLOFEN 10 MG TABLET GT SCH ×3 (05:29→21:27)
[2023-01-14] MEDS: OMEPRAZOLE 20 MG CAPSULE.DR GT SCH ×2 (05:29→17:10)
[2023-01-14] MEDS: HYDROGEN PEROXIDE 3% 118 ML BOTTLE TP SCH ×2 (07:47→20:58)
[2023-01-14] MEDS: ASPIRIN 81 MG TAB.CHEW GT SCH (08:24)
[2023-01-14] MEDS: ACIDOPHILUS/BULGARICUS CHEW TAB GT SCH ×2 (08:25→21:24)
[2023-01-14] MEDS: LOSARTAN POTASSIUM 25 MG TABLET GT SCH (08:25)
[2023-01-14] MEDS: SODIUM CHLORIDE 1,000 MG TABLET GT SCH ×3 (08:25→17:10)
[2023-01-14] MEDS: METOPROLOL TARTRATE 25 MG TABLET GT SCH ×2 (08:25→21:24)
[2023-01-14] MEDS: REMEDY ESSENTIAL ZINC PASTE 113 GM TP SCH ×2 (08:26→21:24)
[2023-01-14] MEDS: CLOPIDOGREL 75 MG TABLET GT SCH (08:26)
[2023-01-14] MEDS: VITAMINS A AND D OINT 42 GM TUBE TP SCH ×2 (08:27→21:25)
[2023-01-14] MEDS: VITAL AF 1.2 1,000 ML LIQUID GT PRN (17:14)
[2023-01-14] MEDS: MULTIVIT, IRON, MIN NO. 8, FA TABLET GT SCH (21:24)
[2023-01-14] MEDS: ATORVASTATIN 20 MG TABLET GT SCH (21:24)
[2023-01-14] MEDS: NUTRISOURCE FIBER 4 GM PACKET GT SCH (21:24)
[2023-01-15] VITALS (10 sets, daily range): TEMP 97.9–98.7; O2SAT 96–99
[2023-01-15] MEDS: ALBUTEROL SULFATE 2.5 MG/3 ML NEBU NEB SCH ×4 (01:16→19:40)
[2023-01-15] MEDS: BACLOFEN 10 MG TABLET GT SCH ×3 (05:46→22:26)
[2023-01-15] MEDS: OMEPRAZOLE 20 MG CAPSULE.DR GT SCH ×2 (05:46→17:19)
[2023-01-15] MEDS: METOPROLOL TARTRATE 25 MG TABLET GT SCH ×2 (09:00→21:00)
[2023-01-15] MEDS: HYDROGEN PEROXIDE 3% 118 ML BOTTLE TP SCH ×2 (09:09→20:47)
[2023-01-15] MEDS: ASPIRIN 81 MG TAB.CHEW GT SCH (09:12)
[2023-01-15] MEDS: ACIDOPHILUS/BULGARICUS CHEW TAB GT SCH ×2 (09:13→21:00)
[2023-01-15] MEDS: LOSARTAN POTASSIUM 25 MG TABLET GT SCH (09:13)
[2023-01-15] MEDS: REMEDY ESSENTIAL ZINC PASTE 113 GM TP SCH ×2 (09:14→21:00)
[2023-01-15] MEDS: VITAMINS A AND D OINT 42 GM TUBE TP SCH ×2 (09:14→21:00)
[2023-01-15] MEDS: CLOPIDOGREL 75 MG TABLET GT SCH (09:14)
[2023-01-15] MEDS: SODIUM CHLORIDE 1,000 MG TABLET GT SCH ×3 (09:14→17:18)
[2023-01-15] MEDS: diphenhydrAMINE 25 MG/10 ML UDC GT PRN (17:19)
[2023-01-15] MEDS: VITAL AF 1.2 1,000 ML LIQUID GT PRN (17:19)
[2023-01-15] MEDS: ATORVASTATIN 20 MG TABLET GT SCH (21:00)
[2023-01-15] MEDS: NUTRISOURCE FIBER 4 GM PACKET GT SCH (21:00)
[2023-01-16] VITALS (10 sets, daily range): TEMP 97.6–98; O2SAT 97–99
[2023-01-16] MEDS: ALBUTEROL SULFATE 2.5 MG/3 ML NEBU NEB SCH ×4 (01:21→19:14)
[2023-01-16] MEDS: OMEPRAZOLE 20 MG CAPSULE.DR GT SCH ×2 (06:01→18:07)
[2023-01-16] MEDS: BACLOFEN 10 MG TABLET GT SCH ×3 (06:01→21:26)
[2023-01-16] MEDS: ASPIRIN 81 MG TAB.CHEW GT SCH (08:48)
[2023-01-16] MEDS: LOSARTAN POTASSIUM 25 MG TABLET GT SCH (08:48)
[2023-01-16] MEDS: ACIDOPHILUS/BULGARICUS CHEW TAB GT SCH ×2 (08:48→21:25)
[2023-01-16] MEDS: METOPROLOL TARTRATE 25 MG TABLET GT SCH ×2 (08:49→21:00)
[2023-01-16] MEDS: CLOPIDOGREL 75 MG TABLET GT SCH (08:49)
[2023-01-16] MEDS: SODIUM CHLORIDE 1,000 MG TABLET GT SCH ×3 (08:49→17:00)
[2023-01-16] MEDS: VITAMINS A AND D 5 GM UD PKT TP SCH ×2 (08:49→21:26)
[2023-01-16] MEDS: REMEDY ESSENTIAL ZINC PASTE 113 GM TP SCH ×2 (08:50→21:26)
[2023-01-16] MEDS: HYDROGEN PEROXIDE 3% 118 ML BOTTLE TP SCH ×2 (08:57→19:25)
[2023-01-16] MEDS: ATORVASTATIN 20 MG TABLET GT SCH (21:25)
[2023-01-16] MEDS: NUTRISOURCE FIBER 4 GM PACKET GT SCH (21:26)
[2023-01-16] MEDS: MULTIVIT, IRON, MIN NO. 8, FA TABLET GT SCH (21:26)
[2023-01-17] VITALS (10 sets, daily range): TEMP 98.2–98.4; O2SAT 97–99
[2023-01-17] MEDS: ALBUTEROL SULFATE 2.5 MG/3 ML NEBU NEB SCH ×4 (01:25→19:20)
[2023-01-17] MEDS: VITAL AF 1.2 1,000 ML LIQUID GT PRN (04:30)
[2023-01-17] MEDS: BACLOFEN 10 MG TABLET GT SCH ×3 (06:07→21:09)
[2023-01-17] MEDS: OMEPRAZOLE 20 MG CAPSULE.DR GT SCH ×2 (06:07→17:05)
[2023-01-17 07:24] LABS: BASOPHILS % (AUTO) 0.5 % (0.0-2.0); EOSINOPHILS # (AUTO) 0.5 K/uL (0.0-0.7); EOSINOPHILS % (AUTO) 9.2 % (0.0-7.0); HEMOGLOBIN 12.5 g/dL (12.5-16.3); LYMPHOCYTES # (AUTO) 1.6 K/uL (0.8-4.8); MEAN CORPUSCULAR HEMOGLOBIN 31.5 uug (23.8-33.4); MEAN CORPUSCULAR HGB CONC 34 g/dL (32.5-36.3); MEAN CORPUSCULAR VOLUME 93.4 fL (73.0-96.2); MONOCYTES # (AUTO) 0.4 K/uL (0.1-1.30); MONOCYTES % (AUTO) 8.8 % (0.0-11.0); NEUTROPHILS # (AUTO) 2.5 K/uL (1.8-8.9); NEUTROPHILS % (AUTO) 49.5 % (38.5-71.5); PLATELET COUNT (AUTO) 246 K/uL (152-348); RED BLOOD CELL COUNT(AUTO) 3.96 MIL/uL (4.06-5.63); RED CELL DISTRIBUTION WIDTH 13.7 % (12.1-16.2); WHITE BLOOD COUNT (AUTO) 5.1 K/uL (3.6-10.2)
[2023-01-17 07:37] LABS: CALCIUM 8.9 mg/dL (8.5-10.1); CARBON DIOXIDE 30 mmol/L (21-32); CHLORIDE 103 mmol/L (98-107); CREATININE 0.6 mg/dL (0.6-1.3); DIFFERENTIAL COMMENT 1; GLUCOSE 104 mg/dL (74-106); MAGNESIUM 2.2 mg/dL (1.8-2.4); PHOSPHOROUS 3.2 mg/dL (2.5-4.9); POTASSIUM 4.2 mmol/L (3.5-5.1); SODIUM SERUM 138 mmol/L (136-145); UREA NITROGEN, BLOOD 30 mg/dL (7-18)
[2023-01-17] MEDS: HYDROGEN PEROXIDE 3% 118 ML BOTTLE TP SCH ×2 (08:08→21:35)
[2023-01-17] MEDS: LOSARTAN POTASSIUM 25 MG TABLET GT SCH (09:10)
[2023-01-17] MEDS: ASPIRIN 81 MG TAB.CHEW GT SCH (09:10)
[2023-01-17] MEDS: ACIDOPHILUS/BULGARICUS CHEW TAB GT SCH ×2 (09:10→21:08)
[2023-01-17] MEDS: SODIUM CHLORIDE 1,000 MG TABLET GT SCH ×3 (09:11→17:05)
[2023-01-17] MEDS: VITAMINS A AND D 5 GM UD PKT TP SCH ×2 (09:11→21:09)
[2023-01-17] MEDS: CLOPIDOGREL 75 MG TABLET GT SCH (09:11)
[2023-01-17] MEDS: REMEDY ESSENTIAL ZINC PASTE 113 GM TP SCH ×2 (09:11→21:09)
[2023-01-17] MEDS: METOPROLOL TARTRATE 25 MG TABLET GT SCH ×2 (09:11→21:09)
[2023-01-17] MEDS: ATORVASTATIN 20 MG TABLET GT SCH (21:08)
[2023-01-17] MEDS: NUTRISOURCE FIBER 4 GM PACKET GT SCH (21:09)
[2023-01-18] VITALS (10 sets, daily range): TEMP 97.5–98.2; O2SAT 96–99
[2023-01-18] MEDS: ALBUTEROL SULFATE 2.5 MG/3 ML NEBU NEB SCH ×4 (01:16→19:46)
[2023-01-18] MEDS: VITAL AF 1.2 1,000 ML LIQUID GT PRN (04:09)
[2023-01-18] MEDS: OMEPRAZOLE 20 MG CAPSULE.DR GT SCH ×2 (05:50→17:24)
[2023-01-18] MEDS: BACLOFEN 10 MG TABLET GT SCH ×3 (05:50→21:12)
[2023-01-18] MEDS: HYDROGEN PEROXIDE 3% 118 ML BOTTLE TP SCH ×2 (08:21→19:46)
[2023-01-18] MEDS: METOPROLOL TARTRATE 25 MG TABLET GT SCH ×2 (09:00→21:12)
[2023-01-18] MEDS: LOSARTAN POTASSIUM 25 MG TABLET GT SCH (09:00)
[2023-01-18] MEDS: ASPIRIN 81 MG TAB.CHEW GT SCH (09:03)
[2023-01-18] MEDS: ACIDOPHILUS/BULGARICUS CHEW TAB GT SCH ×2 (09:06→21:11)
[2023-01-18] MEDS: CLOPIDOGREL 75 MG TABLET GT SCH (09:11)
[2023-01-18] MEDS: SODIUM CHLORIDE 1,000 MG TABLET GT SCH ×3 (09:11→17:24)
[2023-01-18] MEDS: VITAMINS A AND D 5 GM UD PKT TP SCH ×2 (09:16→21:12)
[2023-01-18] MEDS: REMEDY ESSENTIAL ZINC PASTE 113 GM TP SCH ×2 (09:16→21:12)
[2023-01-18] MEDS: ATORVASTATIN 20 MG TABLET GT SCH (21:11)
[2023-01-18] MEDS: MULTIVIT, IRON, MIN NO. 8, FA TABLET GT SCH (21:12)
[2023-01-18] MEDS: NUTRISOURCE FIBER 4 GM PACKET GT SCH (21:12)
[2023-01-19] VITALS (11 sets, daily range): TEMP 98.7–98.8; O2SAT 97–99
[2023-01-19] MEDS: ALBUTEROL SULFATE 2.5 MG/3 ML NEBU NEB SCH ×4 (01:20→19:25)
[2023-01-19] MEDS: BACLOFEN 10 MG TABLET GT SCH ×3 (05:45→22:48)
[2023-01-19] MEDS: OMEPRAZOLE 20 MG CAPSULE.DR GT SCH ×2 (05:45→17:09)
[2023-01-19] MEDS: HYDROGEN PEROXIDE 3% 118 ML BOTTLE TP SCH ×2 (07:39→20:55)
[2023-01-19] MEDS: ASPIRIN 81 MG TAB.CHEW GT SCH (08:55)
[2023-01-19] MEDS: METOPROLOL TARTRATE 25 MG TABLET GT SCH ×2 (09:00→20:45)
[2023-01-19] MEDS: ACIDOPHILUS/BULGARICUS CHEW TAB GT SCH ×2 (09:01→20:42)
[2023-01-19] MEDS: VITAMINS A AND D 5 GM UD PKT TP SCH ×2 (09:03→20:46)
[2023-01-19] MEDS: REMEDY ESSENTIAL ZINC PASTE 113 GM TP SCH ×2 (09:03→20:46)
[2023-01-19] MEDS: CLOPIDOGREL 75 MG TABLET GT SCH (09:07)
[2023-01-19] MEDS: SODIUM CHLORIDE 1,000 MG TABLET GT SCH ×3 (09:07→16:57)
[2023-01-19] MEDS: LOSARTAN POTASSIUM 25 MG TABLET GT SCH (09:07)
[2023-01-19] MEDS: diphenhydrAMINE 25 MG/10 ML UDC GT PRN (16:57)
[2023-01-19] MEDS: ATORVASTATIN 20 MG TABLET GT SCH (20:44)
[2023-01-19] MEDS: NUTRISOURCE FIBER 4 GM PACKET GT SCH (20:45)
[2023-01-20] VITALS (12 sets, daily range): TEMP 97.1–98.4; O2SAT 97–99
[2023-01-20] MEDS: ALBUTEROL SULFATE 2.5 MG/3 ML NEBU NEB SCH ×4 (02:09→19:25)
[2023-01-20] MEDS: BACLOFEN 10 MG TABLET GT SCH ×3 (06:03→22:49)
[2023-01-20] MEDS: OMEPRAZOLE 20 MG CAPSULE.DR GT SCH ×2 (06:03→18:12)
[2023-01-20] MEDS: ASPIRIN 81 MG TAB.CHEW GT SCH (08:24)
[2023-01-20] MEDS: METOPROLOL TARTRATE 25 MG TABLET GT SCH ×2 (08:26→20:47)
[2023-01-20] MEDS: ACIDOPHILUS/BULGARICUS CHEW TAB GT SCH ×2 (08:26→20:47)
[2023-01-20] MEDS: REMEDY ESSENTIAL ZINC PASTE 113 GM TP SCH ×2 (08:27→20:47)
[2023-01-20] MEDS: VITAMINS A AND D 5 GM UD PKT TP SCH ×2 (08:27→20:47)
[2023-01-20] MEDS: LOSARTAN POTASSIUM 25 MG TABLET GT SCH (08:31)
[2023-01-20] MEDS: SODIUM CHLORIDE 1,000 MG TABLET GT SCH ×3 (08:31→17:00)
[2023-01-20] MEDS: CLOPIDOGREL 75 MG TABLET GT SCH (08:32)
[2023-01-20] MEDS: HYDROGEN PEROXIDE 3% 118 ML BOTTLE TP SCH ×2 (09:00→21:19)
[2023-01-20] MEDS: MULTIVIT, IRON, MIN NO. 8, FA TABLET GT SCH (20:47)
[2023-01-20] MEDS: ATORVASTATIN 20 MG TABLET GT SCH (20:47)
[2023-01-20] MEDS: NUTRISOURCE FIBER 4 GM PACKET GT SCH (20:47)
[2023-01-21] VITALS (12 sets, daily range): TEMP 97.6–98.1; O2SAT 97–99
[2023-01-21] MEDS: ALBUTEROL SULFATE 2.5 MG/3 ML NEBU NEB SCH ×4 (01:16→22:25)
[2023-01-21] MEDS: VITAL AF 1.2 1,000 ML LIQUID GT PRN (03:42)
[2023-01-21] MEDS: BACLOFEN 10 MG TABLET GT SCH ×3 (06:09→21:47)
[2023-01-21] MEDS: OMEPRAZOLE 20 MG CAPSULE.DR GT SCH ×2 (06:09→17:42)
[2023-01-21] MEDS: HYDROGEN PEROXIDE 3% 118 ML BOTTLE TP SCH ×2 (07:32→22:27)
[2023-01-21] MEDS: METOPROLOL TARTRATE 25 MG TABLET GT SCH ×2 (09:00→20:59)
[2023-01-21] MEDS: ASPIRIN 81 MG TAB.CHEW GT SCH (09:37)
[2023-01-21] MEDS: LOSARTAN POTASSIUM 25 MG TABLET GT SCH (09:41)
[2023-01-21] MEDS: ACIDOPHILUS/BULGARICUS CHEW TAB GT SCH ×2 (09:41→20:53)
[2023-01-21] MEDS: CLOPIDOGREL 75 MG TABLET GT SCH (09:42)
[2023-01-21] MEDS: SODIUM CHLORIDE 1,000 MG TABLET GT SCH ×3 (09:42→17:42)
[2023-01-21] MEDS: REMEDY ESSENTIAL ZINC PASTE 113 GM TP SCH ×2 (09:42→20:54)
[2023-01-21] MEDS: VITAMINS A AND D 5 GM UD PKT TP SCH ×2 (09:42→20:54)
[2023-01-21] MEDS: NUTRISOURCE FIBER 4 GM PACKET GT SCH (20:54)
[2023-01-21] MEDS: ATORVASTATIN 20 MG TABLET GT SCH (20:58)
[2023-01-22] VITALS (13 sets, daily range): TEMP 97.2–97.9; O2SAT 97–99
[2023-01-22] MEDS: VITAL AF 1.2 1,000 ML LIQUID GT PRN (01:03)
[2023-01-22] MEDS: ALBUTEROL SULFATE 2.5 MG/3 ML NEBU NEB SCH ×4 (01:51→21:38)
[2023-01-22] MEDS: OMEPRAZOLE 20 MG CAPSULE.DR GT SCH ×2 (05:11→17:22)
[2023-01-22] MEDS: BACLOFEN 10 MG TABLET GT SCH ×3 (05:11→22:24)
[2023-01-22] MEDS: HYDROGEN PEROXIDE 3% 118 ML BOTTLE TP SCH ×2 (07:16→21:38)
[2023-01-22] MEDS: METOPROLOL TARTRATE 25 MG TABLET GT SCH ×2 (09:00→21:00)
[2023-01-22] MEDS: ACIDOPHILUS/BULGARICUS CHEW TAB GT SCH ×2 (09:18→20:41)
[2023-01-22] MEDS: ASPIRIN 81 MG TAB.CHEW GT SCH (09:18)
[2023-01-22] MEDS: REMEDY ESSENTIAL ZINC PASTE 113 GM TP SCH ×2 (09:23→20:45)
[2023-01-22] MEDS: SODIUM CHLORIDE 1,000 MG TABLET GT SCH ×3 (09:23→17:22)
[2023-01-22] MEDS: CLOPIDOGREL 75 MG TABLET GT SCH (09:23)
[2023-01-22] MEDS: VITAMINS A AND D 5 GM UD PKT TP SCH ×2 (09:23→20:45)
[2023-01-22] MEDS: LOSARTAN POTASSIUM 25 MG TABLET GT SCH (09:27)
[2023-01-22] MEDS: NUTRISOURCE FIBER 4 GM PACKET GT SCH (20:42)
[2023-01-22] MEDS: MULTIVIT, IRON, MIN NO. 8, FA TABLET GT SCH (20:45)
[2023-01-22] MEDS: ATORVASTATIN 20 MG TABLET GT SCH (21:00)
[2023-01-23] VITALS (12 sets, daily range): TEMP 98.3–99.3; O2SAT 97–99
[2023-01-23] MEDS: ALBUTEROL SULFATE 2.5 MG/3 ML NEBU NEB SCH ×4 (02:19→20:30)
[2023-01-23] MEDS: BACLOFEN 10 MG TABLET GT SCH ×3 (05:19→22:00)
[2023-01-23] MEDS: OMEPRAZOLE 20 MG CAPSULE.DR GT SCH ×2 (05:19→17:06)
[2023-01-23] MEDS: HYDROGEN PEROXIDE 3% 118 ML BOTTLE TP SCH ×2 (07:58→21:41)
[2023-01-23] MEDS: LOSARTAN POTASSIUM 25 MG TABLET GT SCH (09:00)
[2023-01-23] MEDS: ASPIRIN 81 MG TAB.CHEW GT SCH (09:02)
[2023-01-23] MEDS: METOPROLOL TARTRATE 25 MG TABLET GT SCH ×2 (09:03→21:00)
[2023-01-23] MEDS: CLOPIDOGREL 75 MG TABLET GT SCH (09:03)
[2023-01-23] MEDS: VITAMINS A AND D 5 GM UD PKT TP SCH ×2 (09:03→21:00)
[2023-01-23] MEDS: SODIUM CHLORIDE 1,000 MG TABLET GT SCH ×3 (09:03→17:06)
[2023-01-23] MEDS: REMEDY ESSENTIAL ZINC PASTE 113 GM TP SCH ×2 (09:03→21:00)
[2023-01-23] MEDS: ACIDOPHILUS/BULGARICUS CHEW TAB GT SCH ×2 (09:03→21:00)
[2023-01-23] MEDS: NUTRISOURCE FIBER 4 GM PACKET GT SCH (21:00)
[2023-01-23] MEDS: ATORVASTATIN 20 MG TABLET GT SCH (21:00)
[2023-01-24] VITALS (11 sets, daily range): TEMP 97–98.7; O2SAT 97–99
[2023-01-24] MEDS: ALBUTEROL SULFATE 2.5 MG/3 ML NEBU NEB SCH ×4 (01:36→19:22)
[2023-01-24] MEDS: BACLOFEN 10 MG TABLET GT SCH ×3 (06:14→22:53)
[2023-01-24] MEDS: OMEPRAZOLE 20 MG CAPSULE.DR GT SCH ×2 (06:14→17:01)
[2023-01-24] MEDS: LOSARTAN POTASSIUM 25 MG TABLET GT SCH (09:07)
[2023-01-24] MEDS: CLOPIDOGREL 75 MG TABLET GT SCH (09:07)
[2023-01-24] MEDS: METOPROLOL TARTRATE 25 MG TABLET GT SCH ×2 (09:07→20:40)
[2023-01-24] MEDS: ACIDOPHILUS/BULGARICUS CHEW TAB GT SCH ×2 (09:07→20:35)
[2023-01-24] MEDS: ASPIRIN 81 MG TAB.CHEW GT SCH (09:07)
[2023-01-24] MEDS: REMEDY ESSENTIAL ZINC PASTE 113 GM TP SCH ×2 (09:07→20:36)
[2023-01-24] MEDS: SODIUM CHLORIDE 1,000 MG TABLET GT SCH ×3 (09:07→17:01)
[2023-01-24] MEDS: VITAMINS A AND D 5 GM UD PKT TP SCH ×2 (09:07→20:36)
[2023-01-24] MEDS: HYDROGEN PEROXIDE 3% 118 ML BOTTLE TP SCH ×2 (09:29→19:22)
[2023-01-24] MEDS: MULTIVIT, IRON, MIN NO. 8, FA TABLET GT SCH (20:36)
[2023-01-24] MEDS: NUTRISOURCE FIBER 4 GM PACKET GT SCH (20:36)
[2023-01-24] MEDS: ATORVASTATIN 20 MG TABLET GT SCH (20:40)
[2023-01-24] MEDS: diphenhydrAMINE 25 MG/10 ML UDC GT PRN (23:00)
[2023-01-25] VITALS (10 sets, daily range): TEMP 98.1–98.4; O2SAT 96–99
[2023-01-25] MEDS: ALBUTEROL SULFATE 2.5 MG/3 ML NEBU NEB SCH ×4 (00:53→19:41)
[2023-01-25] MEDS: OMEPRAZOLE 20 MG CAPSULE.DR GT SCH ×2 (06:44→17:54)
[2023-01-25] MEDS: BACLOFEN 10 MG TABLET GT SCH ×3 (06:44→22:00)
[2023-01-25] MEDS: VITAL AF 1.2 1,000 ML LIQUID GT PRN (06:45)
[2023-01-25] MEDS: SODIUM CHLORIDE 1,000 MG TABLET GT SCH ×3 (09:00→16:25)
[2023-01-25] MEDS: LOSARTAN POTASSIUM 25 MG TABLET GT SCH (09:00)
[2023-01-25] MEDS: ACIDOPHILUS/BULGARICUS CHEW TAB GT SCH ×2 (09:00→20:46)
[2023-01-25] MEDS: REMEDY ESSENTIAL ZINC PASTE 113 GM TP SCH ×2 (09:00→20:49)
[2023-01-25] MEDS: ASPIRIN 81 MG TAB.CHEW GT SCH (09:00)
[2023-01-25] MEDS: VITAMINS A AND D 5 GM UD PKT TP SCH ×2 (09:00→20:49)
[2023-01-25] MEDS: METOPROLOL TARTRATE 25 MG TABLET GT SCH ×2 (09:00→20:47)
[2023-01-25] MEDS: CLOPIDOGREL 75 MG TABLET GT SCH (09:00)
[2023-01-25] MEDS: HYDROGEN PEROXIDE 3% 118 ML BOTTLE TP SCH ×2 (09:40→19:41)
[2023-01-25] MEDS: diphenhydrAMINE 25 MG/10 ML UDC GT PRN (16:26)
[2023-01-25] MEDS: ATORVASTATIN 20 MG TABLET GT SCH (20:46)
[2023-01-25] MEDS: NUTRISOURCE FIBER 4 GM PACKET GT SCH (20:47)
[2023-01-26] VITALS (11 sets, daily range): TEMP 97.8–99; O2SAT 97–99
[2023-01-26] MEDS: VITAL AF 1.2 1,000 ML LIQUID GT PRN (00:59)
[2023-01-26] MEDS: ALBUTEROL SULFATE 2.5 MG/3 ML NEBU NEB SCH ×4 (01:16→19:18)
[2023-01-26] MEDS: diphenhydrAMINE 25 MG/10 ML UDC GT PRN (02:14)
[2023-01-26] MEDS: OMEPRAZOLE 20 MG CAPSULE.DR GT SCH ×2 (06:21→17:39)
[2023-01-26] MEDS: BACLOFEN 10 MG TABLET GT SCH ×3 (06:21→21:49)
[2023-01-26] MEDS: METOPROLOL TARTRATE 25 MG TABLET GT SCH ×2 (09:00→20:58)
[2023-01-26] MEDS: LOSARTAN POTASSIUM 25 MG TABLET GT SCH (09:00)
[2023-01-26] MEDS: HYDROGEN PEROXIDE 3% 118 ML BOTTLE TP SCH ×2 (09:00→23:46)
[2023-01-26] MEDS: ACIDOPHILUS/BULGARICUS CHEW TAB GT SCH ×2 (09:28→20:55)
[2023-01-26] MEDS: ASPIRIN 81 MG TAB.CHEW GT SCH (09:28)
[2023-01-26] MEDS: SODIUM CHLORIDE 1,000 MG TABLET GT SCH ×3 (09:31→17:39)
[2023-01-26] MEDS: CLOPIDOGREL 75 MG TABLET GT SCH (09:31)
[2023-01-26] MEDS: VITAMINS A AND D 5 GM UD PKT TP SCH ×2 (09:31→20:56)
[2023-01-26] MEDS: REMEDY ESSENTIAL ZINC PASTE 113 GM TP SCH ×2 (09:32→20:56)
[2023-01-26] MEDS: NUTRISOURCE FIBER 4 GM PACKET GT SCH (20:55)
[2023-01-26] MEDS: MULTIVIT, IRON, MIN NO. 8, FA TABLET GT SCH (20:55)
[2023-01-26] MEDS: ATORVASTATIN 20 MG TABLET GT SCH (20:58)
[2023-01-27] VITALS (12 sets, daily range): TEMP 97.5–97.8; O2SAT 97–99
[2023-01-27] MEDS: ALBUTEROL SULFATE 2.5 MG/3 ML NEBU NEB SCH ×4 (01:08→22:27)
[2023-01-27] MEDS: VITAL AF 1.2 1,000 ML LIQUID GT PRN ×2 (03:00→17:45)
[2023-01-27] MEDS: OMEPRAZOLE 20 MG CAPSULE.DR GT SCH ×2 (05:54→17:45)
[2023-01-27] MEDS: BACLOFEN 10 MG TABLET GT SCH ×3 (05:54→21:46)
[2023-01-27] MEDS: HYDROGEN PEROXIDE 3% 118 ML BOTTLE TP SCH ×2 (08:31→22:28)
[2023-01-27] MEDS: METOPROLOL TARTRATE 25 MG TABLET GT SCH ×2 (09:00→21:46)
[2023-01-27] MEDS: ASPIRIN 81 MG TAB.CHEW GT SCH (09:15)
[2023-01-27] MEDS: ACIDOPHILUS/BULGARICUS CHEW TAB GT SCH ×2 (09:16→21:45)
[2023-01-27] MEDS: LOSARTAN POTASSIUM 25 MG TABLET GT SCH (09:19)
[2023-01-27] MEDS: VITAMINS A AND D 5 GM UD PKT TP SCH ×2 (09:20→21:46)
[2023-01-27] MEDS: CLOPIDOGREL 75 MG TABLET GT SCH (09:20)
[2023-01-27] MEDS: REMEDY ESSENTIAL ZINC PASTE 113 GM TP SCH ×2 (09:20→21:46)
[2023-01-27] MEDS: SODIUM CHLORIDE 1,000 MG TABLET GT SCH ×3 (09:20→17:45)
[2023-01-27] MEDS: ATORVASTATIN 20 MG TABLET GT SCH (21:45)
[2023-01-27] MEDS: NUTRISOURCE FIBER 4 GM PACKET GT SCH (21:46)
[2023-01-28] VITALS (11 sets, daily range): TEMP 97.6–98.5; O2SAT 97–99
[2023-01-28] MEDS: ALBUTEROL SULFATE 2.5 MG/3 ML NEBU NEB SCH ×4 (01:13→19:24)
[2023-01-28] MEDS: OMEPRAZOLE 20 MG CAPSULE.DR GT SCH ×2 (05:30→17:56)
[2023-01-28] MEDS: BACLOFEN 10 MG TABLET GT SCH ×3 (05:30→21:29)
[2023-01-28] MEDS: ACETAMINOPHEN 650 MG/20 ML UDC- SA PATIENTS-PAIN ONLY GT PRN (05:31)
[2023-01-28] MEDS: METOPROLOL TARTRATE 25 MG TABLET GT SCH ×2 (09:00→20:46)
[2023-01-28] MEDS: ASPIRIN 81 MG TAB.CHEW GT SCH (09:11)
[2023-01-28] MEDS: LOSARTAN POTASSIUM 25 MG TABLET GT SCH (09:11)
[2023-01-28] MEDS: ACIDOPHILUS/BULGARICUS CHEW TAB GT SCH ×2 (09:11→20:45)
[2023-01-28] MEDS: VITAMINS A AND D 5 GM UD PKT TP SCH ×2 (09:12→20:46)
[2023-01-28] MEDS: CLOPIDOGREL 75 MG TABLET GT SCH (09:12)
[2023-01-28] MEDS: SODIUM CHLORIDE 1,000 MG TABLET GT SCH ×3 (09:12→17:56)
[2023-01-28] MEDS: REMEDY ESSENTIAL ZINC PASTE 113 GM TP SCH ×2 (09:12→20:46)
[2023-01-28] MEDS: HYDROGEN PEROXIDE 3% 118 ML BOTTLE TP SCH ×2 (10:00→21:17)
[2023-01-28] MEDS: VITAL AF 1.2 1,000 ML LIQUID GT PRN (14:37)
[2023-01-28] MEDS: ATORVASTATIN 20 MG TABLET GT SCH (20:45)
[2023-01-28] MEDS: NUTRISOURCE FIBER 4 GM PACKET GT SCH (20:46)
[2023-01-28] MEDS: MULTIVIT, IRON, MIN NO. 8, FA TABLET GT SCH (20:46)
[2023-01-29] VITALS (11 sets, daily range): TEMP 97.7–98.2; O2SAT 97–99
[2023-01-29] MEDS: ALBUTEROL SULFATE 2.5 MG/3 ML NEBU NEB SCH ×4 (01:20→19:41)
[2023-01-29] MEDS: OMEPRAZOLE 20 MG CAPSULE.DR GT SCH ×2 (05:55→17:43)
[2023-01-29] MEDS: BACLOFEN 10 MG TABLET GT SCH ×3 (05:55→21:06)
[2023-01-29] MEDS: HYDROGEN PEROXIDE 3% 118 ML BOTTLE TP SCH ×2 (07:15→20:55)
[2023-01-29] MEDS: ASPIRIN 81 MG TAB.CHEW GT SCH (08:55)
[2023-01-29] MEDS: LOSARTAN POTASSIUM 25 MG TABLET GT SCH (08:55)
[2023-01-29] MEDS: ACIDOPHILUS/BULGARICUS CHEW TAB GT SCH ×2 (08:56→21:05)
[2023-01-29] MEDS: METOPROLOL TARTRATE 25 MG TABLET GT SCH ×2 (08:56→21:06)
[2023-01-29] MEDS: VITAMINS A AND D 5 GM UD PKT TP SCH ×2 (09:01→21:06)
[2023-01-29] MEDS: SODIUM CHLORIDE 1,000 MG TABLET GT SCH ×3 (09:01→17:43)
[2023-01-29] MEDS: CLOPIDOGREL 75 MG TABLET GT SCH (09:01)
[2023-01-29] MEDS: REMEDY ESSENTIAL ZINC PASTE 113 GM TP SCH ×2 (09:01→21:06)
[2023-01-29] MEDS: VITAL AF 1.2 1,000 ML LIQUID GT PRN (09:02)
[2023-01-29] MEDS: diphenhydrAMINE 25 MG/10 ML UDC GT PRN (17:44)
[2023-01-29] MEDS: ATORVASTATIN 20 MG TABLET GT SCH (21:05)
[2023-01-29] MEDS: NUTRISOURCE FIBER 4 GM PACKET GT SCH (21:06)
[2023-01-29] MEDS: ACETAMINOPHEN 650 MG/20 ML UDC- SA PATIENTS-PAIN ONLY GT PRN (21:07)
[2023-01-30] VITALS (10 sets, daily range): TEMP 97.2–97.7; O2SAT 97–99
[2023-01-30] MEDS: ALBUTEROL SULFATE 2.5 MG/3 ML NEBU NEB SCH ×4 (01:33→20:04)
[2023-01-30] MEDS: BACLOFEN 10 MG TABLET GT SCH ×3 (05:40→21:45)
[2023-01-30] MEDS: OMEPRAZOLE 20 MG CAPSULE.DR GT SCH ×2 (05:40→17:08)
[2023-01-30] MEDS: VITAL AF 1.2 1,000 ML LIQUID GT PRN (05:40)
[2023-01-30] MEDS: HYDROGEN PEROXIDE 3% 118 ML BOTTLE TP SCH ×2 (08:20→21:31)
[2023-01-30] MEDS: REMEDY ESSENTIAL ZINC PASTE 113 GM TP SCH ×2 (09:30→21:45)
[2023-01-30] MEDS: METOPROLOL TARTRATE 25 MG TABLET GT SCH ×2 (09:30→21:44)
[2023-01-30] MEDS: ACIDOPHILUS/BULGARICUS CHEW TAB GT SCH ×2 (09:30→21:43)
[2023-01-30] MEDS: ASPIRIN 81 MG TAB.CHEW GT SCH (09:30)
[2023-01-30] MEDS: SODIUM CHLORIDE 1,000 MG TABLET GT SCH ×3 (09:30→17:08)
[2023-01-30] MEDS: VITAMINS A AND D 5 GM UD PKT TP SCH ×2 (09:30→21:45)
[2023-01-30] MEDS: CLOPIDOGREL 75 MG TABLET GT SCH (09:30)
[2023-01-30] MEDS: LOSARTAN POTASSIUM 25 MG TABLET GT SCH (09:30)
[2023-01-30] MEDS: ATORVASTATIN 20 MG TABLET GT SCH (21:43)
[2023-01-30] MEDS: NUTRISOURCE FIBER 4 GM PACKET GT SCH (21:44)
[2023-01-30] MEDS: MULTIVIT, IRON, MIN NO. 8, FA TABLET GT SCH (21:45)
[2023-01-31] VITALS (10 sets, daily range): TEMP 97.6–97.8; O2SAT 97–99
[2023-01-31] MEDS: ALBUTEROL SULFATE 2.5 MG/3 ML NEBU NEB SCH ×4 (01:31→19:08)
[2023-01-31] MEDS: VITAL AF 1.2 1,000 ML LIQUID GT PRN ×2 (01:42→23:30)
[2023-01-31] MEDS: OMEPRAZOLE 20 MG CAPSULE.DR GT SCH ×2 (05:46→17:21)
[2023-01-31] MEDS: BACLOFEN 10 MG TABLET GT SCH ×3 (05:46→21:26)
[2023-01-31 07:34] LABS: BASOPHILS % (AUTO) 0.5 % (0.0-2.0); EOSINOPHILS # (AUTO) 0.4 K/uL (0.0-0.7); EOSINOPHILS % (AUTO) 5.9 % (0.0-7.0); HEMATOCRIT 40.3 % (36.7-47.1); HEMOGLOBIN 13.7 g/dL (12.5-16.3); LYMPHOCYTES # (AUTO) 1.6 K/uL (0.8-4.8); LYMPHOCYTES % (AUTO) 24.9 % (20.5-51.5); MEAN CORPUSCULAR HEMOGLOBIN 32.1 uug (23.8-33.4); MEAN CORPUSCULAR HGB CONC 34 g/dL (32.5-36.3); MEAN CORPUSCULAR VOLUME 94.5 fL (73.0-96.2); MONOCYTES # (AUTO) 0.5 K/uL (0.1-1.30); MONOCYTES % (AUTO) 7.1 % (0.0-11.0); NEUTROPHILS # (AUTO) 3.9 K/uL (1.8-8.9); NEUTROPHILS % (AUTO) 61.6 % (38.5-71.5); PLATELET COUNT (AUTO) 234 K/uL (152-348); RED BLOOD CELL COUNT(AUTO) 4.26 MIL/uL (4.06-5.63); RED CELL DISTRIBUTION WIDTH 13.4 % (12.1-16.2); WHITE BLOOD COUNT (AUTO) 6.3 K/uL (3.6-10.2)
[2023-01-31 07:47] LABS: CALCIUM 8.8 mg/dL (8.5-10.1); CARBON DIOXIDE 24 mmol/L (21-32); CHLORIDE 103 mmol/L (98-107); CREATININE 0.6 mg/dL (0.6-1.3); GLUCOSE 107 mg/dL (74-106); MAGNESIUM 2.3 mg/dL (1.8-2.4); PHOSPHOROUS 3.2 mg/dL (2.5-4.9); POTASSIUM 4.2 mmol/L (3.5-5.1); SODIUM SERUM 133 mmol/L (136-145); UREA NITROGEN, BLOOD 27 mg/dL (7-18)
[2023-01-31] MEDS: HYDROGEN PEROXIDE 3% 118 ML BOTTLE TP SCH ×2 (07:48→19:08)
[2023-01-31 07:50] LABS: DIFFERENTIAL COMMENT 1
[2023-01-31] MEDS: REMEDY ESSENTIAL ZINC PASTE 113 GM TP SCH ×2 (08:39→21:25)
[2023-01-31] MEDS: ACIDOPHILUS/BULGARICUS CHEW TAB GT SCH ×2 (08:39→21:24)
[2023-01-31] MEDS: METOPROLOL TARTRATE 25 MG TABLET GT SCH ×2 (08:39→21:25)
[2023-01-31] MEDS: LOSARTAN POTASSIUM 25 MG TABLET GT SCH (08:39)
[2023-01-31] MEDS: SODIUM CHLORIDE 1,000 MG TABLET GT SCH ×3 (08:39→17:21)
[2023-01-31] MEDS: VITAMINS A AND D 5 GM UD PKT TP SCH ×2 (08:39→21:25)
[2023-01-31] MEDS: ASPIRIN 81 MG TAB.CHEW GT SCH (08:39)
[2023-01-31] MEDS: CLOPIDOGREL 75 MG TABLET GT SCH (08:39)
[2023-01-31] MEDS: ATORVASTATIN 20 MG TABLET GT SCH (21:24)
[2023-01-31] MEDS: NUTRISOURCE FIBER 4 GM PACKET GT SCH (21:25)
[2023-02-01] VITALS (11 sets, daily range): BP systolic 122; BP diastolic 59; TEMP 98; O2SAT 97–99
[2023-02-01] MEDS: ALBUTEROL SULFATE 2.5 MG/3 ML NEBU NEB SCH ×4 (01:15→20:44)
[2023-02-01] MEDS: OMEPRAZOLE 20 MG CAPSULE.DR GT SCH ×2 (05:13→17:28)
[2023-02-01] MEDS: BACLOFEN 10 MG TABLET GT SCH ×3 (05:13→22:57)
[2023-02-01] MEDS: HYDROGEN PEROXIDE 3% 118 ML BOTTLE TP SCH ×2 (08:16→21:06)
[2023-02-01] MEDS: ASPIRIN 81 MG TAB.CHEW GT SCH (08:47)
[2023-02-01] MEDS: ACIDOPHILUS/BULGARICUS CHEW TAB GT SCH ×2 (08:49→20:51)
[2023-02-01] MEDS: METOPROLOL TARTRATE 25 MG TABLET GT SCH ×2 (08:49→20:52)
[2023-02-01] MEDS: REMEDY ESSENTIAL ZINC PASTE 113 GM TP SCH ×2 (08:50→20:53)
[2023-02-01] MEDS: SODIUM CHLORIDE 1,000 MG TABLET GT SCH ×3 (08:50→17:28)
[2023-02-01] MEDS: VITAMINS A AND D 5 GM UD PKT TP SCH ×2 (08:50→20:53)
[2023-02-01] MEDS: LOSARTAN POTASSIUM 25 MG TABLET GT SCH (08:50)
[2023-02-01] MEDS: CLOPIDOGREL 75 MG TABLET GT SCH (08:50)
[2023-02-01] MEDS: ATORVASTATIN 20 MG TABLET GT SCH (20:51)
[2023-02-01] MEDS: NUTRISOURCE FIBER 4 GM PACKET GT SCH (20:52)
[2023-02-01] MEDS: MULTIVIT, IRON, MIN NO. 8, FA TABLET GT SCH (20:53)
[2023-02-01] MEDS: diphenhydrAMINE 25 MG/10 ML UDC GT PRN (23:00)
[2023-02-02] VITALS (11 sets, daily range): TEMP 97.8–98.1; O2SAT 97–99
[2023-02-02] MEDS: ALBUTEROL SULFATE 2.5 MG/3 ML NEBU NEB SCH ×4 (01:59→19:16)
[2023-02-02] MEDS: BACLOFEN 10 MG TABLET GT SCH ×3 (05:12→22:07)
[2023-02-02] MEDS: OMEPRAZOLE 20 MG CAPSULE.DR GT SCH ×2 (05:12→17:25)
[2023-02-02] MEDS: HYDROGEN PEROXIDE 3% 118 ML BOTTLE TP SCH ×2 (07:57→21:44)
[2023-02-02] MEDS: ASPIRIN 81 MG TAB.CHEW GT SCH (08:28)
[2023-02-02] MEDS: LOSARTAN POTASSIUM 25 MG TABLET GT SCH (08:29)
[2023-02-02] MEDS: ACIDOPHILUS/BULGARICUS CHEW TAB GT SCH ×2 (08:29→21:00)
[2023-02-02] MEDS: SODIUM CHLORIDE 1,000 MG TABLET GT SCH ×3 (08:32→17:25)
[2023-02-02] MEDS: METOPROLOL TARTRATE 25 MG TABLET GT SCH ×2 (08:32→21:00)
[2023-02-02] MEDS: CLOPIDOGREL 75 MG TABLET GT SCH (08:32)
[2023-02-02] MEDS: VITAMINS A AND D 5 GM UD PKT TP SCH ×2 (08:33→21:00)
[2023-02-02] MEDS: REMEDY ESSENTIAL ZINC PASTE 113 GM TP SCH ×2 (08:33→21:00)
[2023-02-02] MEDS: VITAL AF 1.2 1,000 ML LIQUID GT PRN (12:44)
[2023-02-02] MEDS: ATORVASTATIN 20 MG TABLET GT SCH (21:00)
[2023-02-02] MEDS: NUTRISOURCE FIBER 4 GM PACKET GT SCH (21:00)
[2023-02-03] VITALS (10 sets, daily range): TEMP 98; O2SAT 96–99
[2023-02-03] MEDS: ALBUTEROL SULFATE 2.5 MG/3 ML NEBU NEB SCH ×4 (01:19→19:34)
[2023-02-03] MEDS: OMEPRAZOLE 20 MG CAPSULE.DR GT SCH ×2 (06:04→17:35)
[2023-02-03] MEDS: BACLOFEN 10 MG TABLET GT SCH ×3 (06:04→21:52)
[2023-02-03] MEDS: VITAL AF 1.2 1,000 ML LIQUID GT PRN (06:25)
[2023-02-03] MEDS: HYDROGEN PEROXIDE 3% 118 ML BOTTLE TP SCH ×2 (07:34→20:40)
[2023-02-03] MEDS: LOSARTAN POTASSIUM 25 MG TABLET GT SCH (08:28)
[2023-02-03] MEDS: ACIDOPHILUS/BULGARICUS CHEW TAB GT SCH ×2 (08:28→21:51)
[2023-02-03] MEDS: ASPIRIN 81 MG TAB.CHEW GT SCH (08:28)
[2023-02-03] MEDS: REMEDY ESSENTIAL ZINC PASTE 113 GM TP SCH ×2 (08:29→21:52)
[2023-02-03] MEDS: METOPROLOL TARTRATE 25 MG TABLET GT SCH ×2 (08:29→21:51)
[2023-02-03] MEDS: VITAMINS A AND D 5 GM UD PKT TP SCH ×2 (08:29→21:52)
[2023-02-03] MEDS: SODIUM CHLORIDE 1,000 MG TABLET GT SCH ×3 (08:29→17:35)
[2023-02-03] MEDS: CLOPIDOGREL 75 MG TABLET GT SCH (08:29)
[2023-02-03] MEDS: MULTIVIT, IRON, MIN NO. 8, FA TABLET GT SCH (21:51)
[2023-02-03] MEDS: ATORVASTATIN 20 MG TABLET GT SCH (21:51)
[2023-02-03] MEDS: NUTRISOURCE FIBER 4 GM PACKET GT SCH (21:51)
[2023-02-04] VITALS (11 sets, daily range): TEMP 98–98.6; O2SAT 95–99
[2023-02-04] MEDS: ALBUTEROL SULFATE 2.5 MG/3 ML NEBU NEB SCH ×4 (01:37→19:25)
[2023-02-04] MEDS: VITAL AF 1.2 1,000 ML LIQUID GT PRN (02:30)
[2023-02-04] MEDS: OMEPRAZOLE 20 MG CAPSULE.DR GT SCH ×2 (06:27→17:03)
[2023-02-04] MEDS: BACLOFEN 10 MG TABLET GT SCH ×3 (06:27→20:46)
[2023-02-04] MEDS: HYDROGEN PEROXIDE 3% 118 ML BOTTLE TP SCH ×2 (08:23→21:02)
[2023-02-04] MEDS: ASPIRIN 81 MG TAB.CHEW GT SCH (08:49)
[2023-02-04] MEDS: ACIDOPHILUS/BULGARICUS CHEW TAB GT SCH ×2 (08:50→20:45)
[2023-02-04] MEDS: SODIUM CHLORIDE 1,000 MG TABLET GT SCH ×3 (08:50→16:56)
[2023-02-04] MEDS: LOSARTAN POTASSIUM 25 MG TABLET GT SCH (08:50)
[2023-02-04] MEDS: CLOPIDOGREL 75 MG TABLET GT SCH (08:50)
[2023-02-04] MEDS: VITAMINS A AND D 5 GM UD PKT TP SCH ×2 (08:50→20:45)
[2023-02-04] MEDS: REMEDY ESSENTIAL ZINC PASTE 113 GM TP SCH ×2 (08:50→20:45)
[2023-02-04] MEDS: METOPROLOL TARTRATE 25 MG TABLET GT SCH ×2 (08:50→20:49)
[2023-02-04] MEDS: NUTRISOURCE FIBER 4 GM PACKET GT SCH (20:45)
[2023-02-04] MEDS: ATORVASTATIN 20 MG TABLET GT SCH (20:49)
[2023-02-05] VITALS (11 sets, daily range): TEMP 97.5–98.6; O2SAT 96–99
[2023-02-05] MEDS: VITAL AF 1.2 1,000 ML LIQUID GT PRN ×2 (01:11→23:46)
[2023-02-05] MEDS: ALBUTEROL SULFATE 2.5 MG/3 ML NEBU NEB SCH ×4 (01:45→19:27)
[2023-02-05] MEDS: OMEPRAZOLE 20 MG CAPSULE.DR GT SCH ×2 (05:01→17:12)
[2023-02-05] MEDS: BACLOFEN 10 MG TABLET GT SCH ×3 (05:01→22:00)
[2023-02-05] MEDS: HYDROGEN PEROXIDE 3% 118 ML BOTTLE TP SCH ×2 (09:00→23:55)
[2023-02-05] MEDS: ASPIRIN 81 MG TAB.CHEW GT SCH (09:17)
[2023-02-05] MEDS: VITAMINS A AND D 5 GM UD PKT TP SCH ×2 (09:18→20:33)
[2023-02-05] MEDS: SODIUM CHLORIDE 1,000 MG TABLET GT SCH ×3 (09:18→17:12)
[2023-02-05] MEDS: METOPROLOL TARTRATE 25 MG TABLET GT SCH ×2 (09:18→20:36)
[2023-02-05] MEDS: LOSARTAN POTASSIUM 25 MG TABLET GT SCH (09:18)
[2023-02-05] MEDS: ACIDOPHILUS/BULGARICUS CHEW TAB GT SCH ×2 (09:18→20:33)
[2023-02-05] MEDS: CLOPIDOGREL 75 MG TABLET GT SCH (09:18)
[2023-02-05] MEDS: REMEDY ESSENTIAL ZINC PASTE 113 GM TP SCH ×2 (09:18→20:33)
[2023-02-05] MEDS: MULTIVIT, IRON, MIN NO. 8, FA TABLET GT SCH (20:33)
[2023-02-05] MEDS: NUTRISOURCE FIBER 4 GM PACKET GT SCH (20:33)
[2023-02-05] MEDS: ATORVASTATIN 20 MG TABLET GT SCH (20:37)
[2023-02-05] MEDS: diphenhydrAMINE 25 MG/10 ML UDC GT PRN (20:41)
[2023-02-06] VITALS (12 sets, daily range): TEMP 97.4–97.8; O2SAT 98–99
[2023-02-06] MEDS: ALBUTEROL SULFATE 2.5 MG/3 ML NEBU NEB SCH ×4 (02:05→19:18)
[2023-02-06] MEDS: BACLOFEN 10 MG TABLET GT SCH ×3 (05:02→21:54)
[2023-02-06] MEDS: OMEPRAZOLE 20 MG CAPSULE.DR GT SCH ×2 (05:02→17:09)
[2023-02-06] MEDS: HYDROGEN PEROXIDE 3% 118 ML BOTTLE TP SCH ×2 (07:32→23:40)
[2023-02-06 08:21] LABS: BASOPHILS % (AUTO) 0.5 % (0.0-2.0); EOSINOPHILS # (AUTO) 0.4 K/uL (0.0-0.7); EOSINOPHILS % (AUTO) 6.6 % (0.0-7.0); HEMATOCRIT 36.6 % (36.7-47.1); HEMOGLOBIN 12.5 g/dL (12.5-16.3); LYMPHOCYTES # (AUTO) 1.2 K/uL (0.8-4.8); LYMPHOCYTES % (AUTO) 18.3 % (20.5-51.5); MEAN CORPUSCULAR HEMOGLOBIN 31.8 uug (23.8-33.4); MEAN CORPUSCULAR HGB CONC 34 g/dL (32.5-36.3); MEAN CORPUSCULAR VOLUME 92.6 fL (73.0-96.2); MONOCYTES # (AUTO) 0.3 K/uL (0.1-1.30); NEUTROPHILS # (AUTO) 4.4 K/uL (1.8-8.9); NEUTROPHILS % (AUTO) 69.6 % (38.5-71.5); PLATELET COUNT (AUTO) 249 K/uL (152-348); RED BLOOD CELL COUNT(AUTO) 3.95 MIL/uL (4.06-5.63); RED CELL DISTRIBUTION WIDTH 13.6 % (12.1-16.2); WHITE BLOOD COUNT (AUTO) 6.4 K/uL (3.6-10.2)
[2023-02-06] MEDS: ACIDOPHILUS/BULGARICUS CHEW TAB GT SCH ×2 (08:29→20:09)
[2023-02-06] MEDS: LOSARTAN POTASSIUM 25 MG TABLET GT SCH (08:29)
[2023-02-06] MEDS: ASPIRIN 81 MG TAB.CHEW GT SCH (08:29)
[2023-02-06] MEDS: CLOPIDOGREL 75 MG TABLET GT SCH (08:31)
[2023-02-06] MEDS: METOPROLOL TARTRATE 25 MG TABLET GT SCH ×2 (08:31→20:10)
[2023-02-06] MEDS: VITAMINS A AND D 5 GM UD PKT TP SCH ×2 (08:31→20:10)
[2023-02-06] MEDS: REMEDY ESSENTIAL ZINC PASTE 113 GM TP SCH ×2 (08:31→20:10)
[2023-02-06] MEDS: SODIUM CHLORIDE 1,000 MG TABLET GT SCH ×3 (08:31→17:09)
[2023-02-06 08:42] LABS: DIFFERENTIAL COMMENT 1
[2023-02-06 09:10] LABS: CREATININE 0.6 mg/dL (0.6-1.3); PHOSPHOROUS 3.4 mg/dL (2.5-4.9)
[2023-02-06] MEDS: NUTRISOURCE FIBER 4 GM PACKET GT SCH (20:09)
[2023-02-06] MEDS: ATORVASTATIN 20 MG TABLET GT SCH (20:14)
[2023-02-07] VITALS (11 sets, daily range): TEMP 97.5–97.6; O2SAT 98–99
[2023-02-07] MEDS: ALBUTEROL SULFATE 2.5 MG/3 ML NEBU NEB SCH ×4 (03:48→19:09)
[2023-02-07] MEDS: VITAL AF 1.2 1,000 ML LIQUID GT PRN ×2 (04:59→21:35)
[2023-02-07] MEDS: OMEPRAZOLE 20 MG CAPSULE.DR GT SCH ×2 (05:00→17:05)
[2023-02-07] MEDS: BACLOFEN 10 MG TABLET GT SCH ×3 (05:00→21:35)
[2023-02-07] MEDS: diphenhydrAMINE 25 MG/10 ML UDC GT PRN (05:00)
[2023-02-07] MEDS: HYDROGEN PEROXIDE 3% 118 ML BOTTLE TP SCH ×2 (07:07→19:09)
[2023-02-07 08:10] LABS: CALCIUM 9.1 mg/dL (8.5-10.1); CARBON DIOXIDE 27 mmol/L (21-32); CHLORIDE 104 mmol/L (98-107); CREATININE 0.7 mg/dL (0.6-1.3); GLUCOSE 123 mg/dL (74-106); POTASSIUM 4.1 mmol/L (3.5-5.1); SODIUM SERUM 140 mmol/L (136-145); UREA NITROGEN, BLOOD 28 mg/dL (7-18)
[2023-02-07] MEDS: ACIDOPHILUS/BULGARICUS CHEW TAB GT SCH ×2 (08:44→21:34)
[2023-02-07] MEDS: ASPIRIN 81 MG TAB.CHEW GT SCH (08:44)
[2023-02-07] MEDS: LOSARTAN POTASSIUM 25 MG TABLET GT SCH (08:44)
[2023-02-07] MEDS: METOPROLOL TARTRATE 25 MG TABLET GT SCH ×2 (08:44→21:34)
[2023-02-07] MEDS: SODIUM CHLORIDE 1,000 MG TABLET GT SCH ×3 (08:45→16:40)
[2023-02-07] MEDS: REMEDY ESSENTIAL ZINC PASTE 113 GM TP SCH ×2 (08:45→21:35)
[2023-02-07] MEDS: CLOPIDOGREL 75 MG TABLET GT SCH (08:45)
[2023-02-07] MEDS: VITAMINS A AND D 5 GM UD PKT TP SCH ×2 (08:45→21:35)
[2023-02-07] MEDS: ATORVASTATIN 20 MG TABLET GT SCH (21:34)
[2023-02-07] MEDS: NUTRISOURCE FIBER 4 GM PACKET GT SCH (21:34)
[2023-02-07] MEDS: MULTIVIT, IRON, MIN NO. 8, FA TABLET GT SCH (21:34)
[2023-02-08] VITALS (10 sets, daily range): TEMP 97.5–98; O2SAT 97–98
[2023-02-08] MEDS: ALBUTEROL SULFATE 2.5 MG/3 ML NEBU NEB SCH ×4 (01:28→19:15)
[2023-02-08] MEDS: BACLOFEN 10 MG TABLET GT SCH ×3 (05:19→22:00)
[2023-02-08] MEDS: OMEPRAZOLE 20 MG CAPSULE.DR GT SCH ×2 (05:19→17:07)
[2023-02-08] MEDS: HYDROGEN PEROXIDE 3% 118 ML BOTTLE TP SCH ×2 (07:59→23:09)
[2023-02-08] MEDS: ASPIRIN 81 MG TAB.CHEW GT SCH (08:25)
[2023-02-08] MEDS: ACIDOPHILUS/BULGARICUS CHEW TAB GT SCH ×2 (08:26→20:43)
[2023-02-08] MEDS: VITAMINS A AND D 5 GM UD PKT TP SCH ×2 (08:27→20:44)
[2023-02-08] MEDS: REMEDY ESSENTIAL ZINC PASTE 113 GM TP SCH ×2 (08:27→20:43)
[2023-02-08] MEDS: METOPROLOL TARTRATE 25 MG TABLET GT SCH ×2 (08:33→20:43)
[2023-02-08] MEDS: CLOPIDOGREL 75 MG TABLET GT SCH (08:37)
[2023-02-08] MEDS: SODIUM CHLORIDE 1,000 MG TABLET GT SCH ×3 (08:37→17:10)
[2023-02-08] MEDS: LOSARTAN POTASSIUM 25 MG TABLET GT SCH (08:38)
[2023-02-08] MEDS: VITAL AF 1.2 1,000 ML LIQUID GT PRN (18:27)
[2023-02-08] MEDS: ATORVASTATIN 20 MG TABLET GT SCH (20:43)
[2023-02-08] MEDS: NUTRISOURCE FIBER 4 GM PACKET GT SCH (20:43)
[2023-02-09] VITALS (10 sets, daily range): TEMP 98.3–98.6; O2SAT 96–99
[2023-02-09] MEDS: ALBUTEROL SULFATE 2.5 MG/3 ML NEBU NEB SCH ×4 (01:26→19:41)
[2023-02-09] MEDS: BACLOFEN 10 MG TABLET GT SCH ×3 (06:20→22:00)
[2023-02-09] MEDS: OMEPRAZOLE 20 MG CAPSULE.DR GT SCH ×2 (06:20→17:38)
[2023-02-09] MEDS: HYDROGEN PEROXIDE 3% 118 ML BOTTLE TP SCH ×2 (08:24→21:07)
[2023-02-09] MEDS: METOPROLOL TARTRATE 25 MG TABLET GT SCH ×2 (09:00→20:54)
[2023-02-09] MEDS: ASPIRIN 81 MG TAB.CHEW GT SCH (09:05)
[2023-02-09] MEDS: ACIDOPHILUS/BULGARICUS CHEW TAB GT SCH ×2 (09:06→20:54)
[2023-02-09] MEDS: CLOPIDOGREL 75 MG TABLET GT SCH (09:10)
[2023-02-09] MEDS: VITAMINS A AND D 5 GM UD PKT TP SCH ×2 (09:10→20:55)
[2023-02-09] MEDS: REMEDY ESSENTIAL ZINC PASTE 113 GM TP SCH ×2 (09:10→20:55)
[2023-02-09] MEDS: SODIUM CHLORIDE 1,000 MG TABLET GT SCH ×3 (09:10→17:38)
[2023-02-09] MEDS: LOSARTAN POTASSIUM 25 MG TABLET GT SCH (09:10)
[2023-02-09] MEDS: VITAL AF 1.2 1,000 ML LIQUID GT PRN (17:38)
[2023-02-09] MEDS: ATORVASTATIN 20 MG TABLET GT SCH (20:54)
[2023-02-09] MEDS: NUTRISOURCE FIBER 4 GM PACKET GT SCH (20:55)
[2023-02-09] MEDS: MULTIVIT, IRON, MIN NO. 8, FA TABLET GT SCH (20:55)
[2023-02-10] VITALS (11 sets, daily range): TEMP 97.7–98; O2SAT 98–99
[2023-02-10] MEDS: ALBUTEROL SULFATE 2.5 MG/3 ML NEBU NEB SCH ×4 (01:08→19:17)
[2023-02-10] MEDS: BACLOFEN 10 MG TABLET GT SCH ×3 (06:00→22:24)
[2023-02-10] MEDS: OMEPRAZOLE 20 MG CAPSULE.DR GT SCH ×2 (06:00→17:30)
[2023-02-10] MEDS: HYDROGEN PEROXIDE 3% 118 ML BOTTLE TP SCH (08:14)
[2023-02-10] MEDS: CLOPIDOGREL 75 MG TABLET GT SCH (09:00)
[2023-02-10] MEDS: METOPROLOL TARTRATE 25 MG TABLET GT SCH ×2 (09:00→20:40)
[2023-02-10] MEDS: REMEDY ESSENTIAL ZINC PASTE 113 GM TP SCH ×2 (09:00→20:41)
[2023-02-10] MEDS: ACIDOPHILUS/BULGARICUS CHEW TAB GT SCH ×2 (09:00→20:40)
[2023-02-10] MEDS: SODIUM CHLORIDE 1,000 MG TABLET GT SCH ×3 (09:00→17:30)
[2023-02-10] MEDS: VITAMINS A AND D 5 GM UD PKT TP SCH ×2 (09:00→20:41)
[2023-02-10] MEDS: ASPIRIN 81 MG TAB.CHEW GT SCH (09:59)
[2023-02-10] MEDS: LOSARTAN POTASSIUM 25 MG TABLET GT SCH (10:00)
[2023-02-10] MEDS: ATORVASTATIN 20 MG TABLET GT SCH (20:40)
[2023-02-10] MEDS: NUTRISOURCE FIBER 4 GM PACKET GT SCH (20:41)
[2023-02-11] VITALS (11 sets, daily range): TEMP 97.1–98.2; O2SAT 94–99
[2023-02-11] MEDS: HYDROGEN PEROXIDE 3% 118 ML BOTTLE TP SCH ×3 (00:33→21:59)
[2023-02-11] MEDS: ALBUTEROL SULFATE 2.5 MG/3 ML NEBU NEB SCH ×4 (01:43→19:25)
[2023-02-11] MEDS: OMEPRAZOLE 20 MG CAPSULE.DR GT SCH ×2 (05:28→18:35)
[2023-02-11] MEDS: BACLOFEN 10 MG TABLET GT SCH ×3 (05:28→22:00)
[2023-02-11] MEDS: ASPIRIN 81 MG TAB.CHEW GT SCH (08:42)
[2023-02-11] MEDS: ACIDOPHILUS/BULGARICUS CHEW TAB GT SCH ×2 (08:42→20:17)
[2023-02-11] MEDS: LOSARTAN POTASSIUM 25 MG TABLET GT SCH (08:42)
[2023-02-11] MEDS: METOPROLOL TARTRATE 25 MG TABLET GT SCH ×2 (08:43→20:18)
[2023-02-11] MEDS: SODIUM CHLORIDE 1,000 MG TABLET GT SCH ×3 (08:43→16:35)
[2023-02-11] MEDS: VITAMINS A AND D 5 GM UD PKT TP SCH ×2 (08:49→20:19)
[2023-02-11] MEDS: VITAL AF 1.2 1,000 ML LIQUID GT PRN (08:49)
[2023-02-11] MEDS: CLOPIDOGREL 75 MG TABLET GT SCH (08:49)
[2023-02-11] MEDS: REMEDY ESSENTIAL ZINC PASTE 113 GM TP SCH ×2 (08:49→20:19)
[2023-02-11] MEDS: diphenhydrAMINE 25 MG/10 ML UDC GT PRN (08:50)
[2023-02-11] MEDS: ATORVASTATIN 20 MG TABLET GT SCH (20:17)
[2023-02-11] MEDS: MULTIVIT, IRON, MIN NO. 8, FA TABLET GT SCH (20:19)
[2023-02-11] MEDS: NUTRISOURCE FIBER 4 GM PACKET GT SCH (20:19)
[2023-02-12] VITALS (10 sets, daily range): TEMP 98–98.5; O2SAT 95–99
[2023-02-12] MEDS: ALBUTEROL SULFATE 2.5 MG/3 ML NEBU NEB SCH ×4 (01:14→19:41)
[2023-02-12] MEDS: BACLOFEN 10 MG TABLET GT SCH ×3 (05:47→22:57)
[2023-02-12] MEDS: OMEPRAZOLE 20 MG CAPSULE.DR GT SCH ×2 (05:47→17:11)
[2023-02-12] MEDS: HYDROGEN PEROXIDE 3% 118 ML BOTTLE TP SCH ×2 (07:21→19:41)
[2023-02-12] MEDS: ASPIRIN 81 MG TAB.CHEW GT SCH (08:35)
[2023-02-12] MEDS: ACIDOPHILUS/BULGARICUS CHEW TAB GT SCH ×2 (08:35→20:32)
[2023-02-12] MEDS: LOSARTAN POTASSIUM 25 MG TABLET GT SCH (08:35)
[2023-02-12] MEDS: SODIUM CHLORIDE 1,000 MG TABLET GT SCH ×3 (08:36→17:11)
[2023-02-12] MEDS: CLOPIDOGREL 75 MG TABLET GT SCH (08:36)
[2023-02-12] MEDS: METOPROLOL TARTRATE 25 MG TABLET GT SCH ×2 (08:36→20:39)
[2023-02-12] MEDS: REMEDY ESSENTIAL ZINC PASTE 113 GM TP SCH ×2 (08:36→20:34)
[2023-02-12] MEDS: VITAMINS A AND D 5 GM UD PKT TP SCH ×2 (08:36→20:34)
[2023-02-12] MEDS: NUTRISOURCE FIBER 4 GM PACKET GT SCH (20:32)
[2023-02-12] MEDS: ATORVASTATIN 20 MG TABLET GT SCH (20:39)
[2023-02-12] MEDS: VITAL AF 1.2 1,000 ML LIQUID GT PRN (22:57)
[2023-02-13] VITALS (10 sets, daily range): TEMP 97.8–98.4; O2SAT 97–99
[2023-02-13] MEDS: ALBUTEROL SULFATE 2.5 MG/3 ML NEBU NEB SCH ×4 (01:21→20:10)
[2023-02-13] MEDS: BACLOFEN 10 MG TABLET GT SCH ×3 (05:19→21:08)
[2023-02-13] MEDS: OMEPRAZOLE 20 MG CAPSULE.DR GT SCH ×2 (05:19→17:42)
[2023-02-13] MEDS: HYDROGEN PEROXIDE 3% 118 ML BOTTLE TP SCH (08:05)
[2023-02-13] MEDS: ASPIRIN 81 MG TAB.CHEW GT SCH (09:03)
[2023-02-13] MEDS: LOSARTAN POTASSIUM 25 MG TABLET GT SCH (09:04)
[2023-02-13] MEDS: CLOPIDOGREL 75 MG TABLET GT SCH (09:04)
[2023-02-13] MEDS: METOPROLOL TARTRATE 25 MG TABLET GT SCH ×2 (09:04→20:19)
[2023-02-13] MEDS: ACIDOPHILUS/BULGARICUS CHEW TAB GT SCH ×2 (09:04→20:19)
[2023-02-13] MEDS: VITAMINS A AND D 5 GM UD PKT TP SCH ×2 (09:04→20:20)
[2023-02-13] MEDS: SODIUM CHLORIDE 1,000 MG TABLET GT SCH ×3 (09:04→17:41)
[2023-02-13] MEDS: REMEDY ESSENTIAL ZINC PASTE 113 GM TP SCH ×2 (09:04→20:20)
[2023-02-13] MEDS: ATORVASTATIN 20 MG TABLET GT SCH (20:19)
[2023-02-13] MEDS: MULTIVIT, IRON, MIN NO. 8, FA TABLET GT SCH (20:20)
[2023-02-13] MEDS: NUTRISOURCE FIBER 4 GM PACKET GT SCH (20:20)
[2023-02-14] VITALS (9 sets, daily range): BP systolic 138; BP diastolic 58; TEMP 98–98.4; O2SAT 96–99
[2023-02-14] MEDS: VITAL AF 1.2 1,000 ML LIQUID GT PRN ×2 (00:31→20:55)
[2023-02-14] MEDS: HYDROGEN PEROXIDE 3% 118 ML BOTTLE TP SCH ×3 (00:57→20:21)
[2023-02-14] MEDS: ALBUTEROL SULFATE 2.5 MG/3 ML NEBU NEB SCH ×4 (01:27→20:20)
[2023-02-14] MEDS: OMEPRAZOLE 20 MG CAPSULE.DR GT SCH ×2 (05:15→18:42)
[2023-02-14] MEDS: BACLOFEN 10 MG TABLET GT SCH ×3 (05:15→21:10)
[2023-02-14] MEDS: METOPROLOL TARTRATE 25 MG TABLET GT SCH ×2 (09:00→20:55)
[2023-02-14] MEDS: ASPIRIN 81 MG TAB.CHEW GT SCH (09:05)
[2023-02-14] MEDS: LOSARTAN POTASSIUM 25 MG TABLET GT SCH (09:05)
[2023-02-14] MEDS: ACIDOPHILUS/BULGARICUS CHEW TAB GT SCH ×2 (09:05→20:55)
[2023-02-14] MEDS: SODIUM CHLORIDE 1,000 MG TABLET GT SCH ×3 (09:06→17:00)
[2023-02-14] MEDS: REMEDY ESSENTIAL ZINC PASTE 113 GM TP SCH ×2 (09:06→20:55)
[2023-02-14] MEDS: VITAMINS A AND D 5 GM UD PKT TP SCH ×2 (09:06→20:55)
[2023-02-14] MEDS: CLOPIDOGREL 75 MG TABLET GT SCH (09:06)
[2023-02-14] MEDS: ATORVASTATIN 20 MG TABLET GT SCH (20:55)
[2023-02-14] MEDS: NUTRISOURCE FIBER 4 GM PACKET GT SCH (20:55)
[2023-02-15] VITALS (11 sets, daily range): TEMP 98–98.2; O2SAT 97–98
[2023-02-15] MEDS: ALBUTEROL SULFATE 2.5 MG/3 ML NEBU NEB SCH ×4 (01:30→19:32)
[2023-02-15] MEDS: OMEPRAZOLE 20 MG CAPSULE.DR GT SCH ×2 (05:15→17:01)
[2023-02-15] MEDS: BACLOFEN 10 MG TABLET GT SCH ×3 (05:15→22:00)
[2023-02-15] MEDS: HYDROGEN PEROXIDE 3% 118 ML BOTTLE TP SCH ×2 (08:16→20:40)
[2023-02-15] MEDS: SODIUM CHLORIDE 1,000 MG TABLET GT SCH ×3 (09:00→16:55)
[2023-02-15] MEDS: LOSARTAN POTASSIUM 25 MG TABLET GT SCH (09:00)
[2023-02-15] MEDS: METOPROLOL TARTRATE 25 MG TABLET GT SCH ×2 (09:00→20:39)
[2023-02-15] MEDS: CLOPIDOGREL 75 MG TABLET GT SCH (09:00)
[2023-02-15] MEDS: VITAMINS A AND D 5 GM UD PKT TP SCH ×2 (09:00→20:40)
[2023-02-15] MEDS: ASPIRIN 81 MG TAB.CHEW GT SCH (09:00)
[2023-02-15] MEDS: ACIDOPHILUS/BULGARICUS CHEW TAB GT SCH ×2 (09:00→20:38)
[2023-02-15] MEDS: REMEDY ESSENTIAL ZINC PASTE 113 GM TP SCH ×2 (09:00→20:40)
[2023-02-15] MEDS: ATORVASTATIN 20 MG TABLET GT SCH (20:38)
[2023-02-15] MEDS: MULTIVIT, IRON, MIN NO. 8, FA TABLET GT SCH (20:39)
[2023-02-15] MEDS: NUTRISOURCE FIBER 4 GM PACKET GT SCH (20:39)
[2023-02-16] VITALS (11 sets, daily range): TEMP 97.5–97.6; O2SAT 97–98
[2023-02-16] MEDS: ALBUTEROL SULFATE 2.5 MG/3 ML NEBU NEB SCH ×4 (01:42→19:18)
[2023-02-16] MEDS: BACLOFEN 10 MG TABLET GT SCH ×3 (06:46→22:45)
[2023-02-16] MEDS: OMEPRAZOLE 20 MG CAPSULE.DR GT SCH ×2 (06:46→17:57)
[2023-02-16] MEDS: HYDROGEN PEROXIDE 3% 118 ML BOTTLE TP SCH ×2 (07:22→19:19)
[2023-02-16] MEDS: ASPIRIN 81 MG TAB.CHEW GT SCH (09:24)
[2023-02-16] MEDS: ACIDOPHILUS/BULGARICUS CHEW TAB GT SCH ×2 (09:25→20:51)
[2023-02-16] MEDS: METOPROLOL TARTRATE 25 MG TABLET GT SCH ×2 (09:28→20:52)
[2023-02-16] MEDS: REMEDY ESSENTIAL ZINC PASTE 113 GM TP SCH ×2 (09:28→20:52)
[2023-02-16] MEDS: SODIUM CHLORIDE 1,000 MG TABLET GT SCH ×3 (09:28→17:56)
[2023-02-16] MEDS: CLOPIDOGREL 75 MG TABLET GT SCH (09:28)
[2023-02-16] MEDS: VITAMINS A AND D 5 GM UD PKT TP SCH ×2 (09:29→20:52)
[2023-02-16] MEDS: LOSARTAN POTASSIUM 25 MG TABLET GT SCH (09:29)
[2023-02-16] MEDS: VITAL AF 1.2 1,000 ML LIQUID GT PRN (12:08)
[2023-02-16] MEDS: ATORVASTATIN 20 MG TABLET GT SCH (20:51)
[2023-02-16] MEDS: NUTRISOURCE FIBER 4 GM PACKET GT SCH (20:52)
[2023-02-17] VITALS (10 sets, daily range): TEMP 98–98.1; O2SAT 98–99
[2023-02-17] MEDS: ALBUTEROL SULFATE 2.5 MG/3 ML NEBU NEB SCH ×4 (01:26→20:20)
[2023-02-17] MEDS: BACLOFEN 10 MG TABLET GT SCH ×3 (06:02→21:43)
[2023-02-17] MEDS: OMEPRAZOLE 20 MG CAPSULE.DR GT SCH ×2 (06:03→18:23)
[2023-02-17] MEDS: HYDROGEN PEROXIDE 3% 118 ML BOTTLE TP SCH ×2 (07:57→21:22)
[2023-02-17] MEDS: METOPROLOL TARTRATE 25 MG TABLET GT SCH ×2 (09:00→20:58)
[2023-02-17] MEDS: ASPIRIN 81 MG TAB.CHEW GT SCH (09:49)
[2023-02-17] MEDS: ACIDOPHILUS/BULGARICUS CHEW TAB GT SCH ×2 (09:49→20:58)
[2023-02-17] MEDS: LOSARTAN POTASSIUM 25 MG TABLET GT SCH (09:53)
[2023-02-17] MEDS: VITAMINS A AND D 5 GM UD PKT TP SCH ×2 (09:54→20:58)
[2023-02-17] MEDS: REMEDY ESSENTIAL ZINC PASTE 113 GM TP SCH ×2 (09:54→20:58)
[2023-02-17] MEDS: CLOPIDOGREL 75 MG TABLET GT SCH (09:56)
[2023-02-17] MEDS: SODIUM CHLORIDE 1,000 MG TABLET GT SCH ×3 (09:56→17:00)
[2023-02-17] MEDS: VITAL AF 1.2 1,000 ML LIQUID GT PRN (16:27)
[2023-02-17] MEDS: NUTRISOURCE FIBER 4 GM PACKET GT SCH (20:58)
[2023-02-17] MEDS: MULTIVIT, IRON, MIN NO. 8, FA TABLET GT SCH (20:58)
[2023-02-17] MEDS: ATORVASTATIN 20 MG TABLET GT SCH (20:58)
[2023-02-18] VITALS (10 sets, daily range): TEMP 97.2–98.3; O2SAT 96–99
[2023-02-18] MEDS: ALBUTEROL SULFATE 2.5 MG/3 ML NEBU NEB SCH ×4 (01:20→19:28)
[2023-02-18] MEDS: BACLOFEN 10 MG TABLET GT SCH ×3 (05:51→22:09)
[2023-02-18] MEDS: OMEPRAZOLE 20 MG CAPSULE.DR GT SCH ×2 (05:51→17:55)
[2023-02-18] MEDS: HYDROGEN PEROXIDE 3% 118 ML BOTTLE TP SCH ×2 (07:44→21:34)
[2023-02-18] MEDS: METOPROLOL TARTRATE 25 MG TABLET GT SCH ×2 (09:00→20:57)
[2023-02-18] MEDS: LOSARTAN POTASSIUM 25 MG TABLET GT SCH (09:24)
[2023-02-18] MEDS: ASPIRIN 81 MG TAB.CHEW GT SCH (09:24)
[2023-02-18] MEDS: ACIDOPHILUS/BULGARICUS CHEW TAB GT SCH ×2 (09:25→20:57)
[2023-02-18] MEDS: REMEDY ESSENTIAL ZINC PASTE 113 GM TP SCH ×2 (09:26→21:00)
[2023-02-18] MEDS: VITAMINS A AND D 5 GM UD PKT TP SCH ×2 (09:26→21:00)
[2023-02-18] MEDS: CLOPIDOGREL 75 MG TABLET GT SCH (09:26)
[2023-02-18] MEDS: SODIUM CHLORIDE 1,000 MG TABLET GT SCH ×3 (09:26→17:55)
[2023-02-18] MEDS: VITAL AF 1.2 1,000 ML LIQUID GT PRN (14:38)
[2023-02-18] MEDS: NUTRISOURCE FIBER 4 GM PACKET GT SCH (20:57)
[2023-02-18] MEDS: ATORVASTATIN 20 MG TABLET GT SCH (20:57)
[2023-02-19] VITALS (10 sets, daily range): TEMP 97.8–97.9; O2SAT 97–99
[2023-02-19] MEDS: ALBUTEROL SULFATE 2.5 MG/3 ML NEBU NEB SCH ×4 (01:31→19:19)
[2023-02-19] MEDS: BACLOFEN 10 MG TABLET GT SCH ×3 (05:59→22:05)
[2023-02-19] MEDS: OMEPRAZOLE 20 MG CAPSULE.DR GT SCH ×2 (05:59→17:33)
[2023-02-19] MEDS: HYDROGEN PEROXIDE 3% 118 ML BOTTLE TP SCH ×2 (07:39→19:19)
[2023-02-19] MEDS: METOPROLOL TARTRATE 25 MG TABLET GT SCH ×2 (09:00→20:49)
[2023-02-19] MEDS: ASPIRIN 81 MG TAB.CHEW GT SCH (09:19)
[2023-02-19] MEDS: LOSARTAN POTASSIUM 25 MG TABLET GT SCH (09:20)
[2023-02-19] MEDS: ACIDOPHILUS/BULGARICUS CHEW TAB GT SCH ×2 (09:20→20:49)
[2023-02-19] MEDS: VITAMINS A AND D 5 GM UD PKT TP SCH ×2 (09:21→20:50)
[2023-02-19] MEDS: CLOPIDOGREL 75 MG TABLET GT SCH (09:21)
[2023-02-19] MEDS: REMEDY ESSENTIAL ZINC PASTE 113 GM TP SCH ×2 (09:21→20:50)
[2023-02-19] MEDS: SODIUM CHLORIDE 1,000 MG TABLET GT SCH ×3 (09:21→17:33)
[2023-02-19] MEDS: ATORVASTATIN 20 MG TABLET GT SCH (20:49)
[2023-02-19] MEDS: NUTRISOURCE FIBER 4 GM PACKET GT SCH (20:49)
[2023-02-19] MEDS: MULTIVIT, IRON, MIN NO. 8, FA TABLET GT SCH (20:50)
[2023-02-20] VITALS (10 sets, daily range): TEMP 97.7; O2SAT 97–99
[2023-02-20] MEDS: ALBUTEROL SULFATE 2.5 MG/3 ML NEBU NEB SCH ×4 (01:16→19:29)
[2023-02-20] MEDS: VITAL AF 1.2 1,000 ML LIQUID GT PRN (04:39)
[2023-02-20] MEDS: OMEPRAZOLE 20 MG CAPSULE.DR GT SCH ×2 (05:28→17:10)
[2023-02-20] MEDS: BACLOFEN 10 MG TABLET GT SCH ×3 (05:28→21:44)
[2023-02-20] MEDS: METOPROLOL TARTRATE 25 MG TABLET GT SCH ×2 (09:00→21:44)
[2023-02-20] MEDS: ACIDOPHILUS/BULGARICUS CHEW TAB GT SCH ×2 (09:20→21:44)
[2023-02-20] MEDS: LOSARTAN POTASSIUM 25 MG TABLET GT SCH (09:20)
[2023-02-20] MEDS: ASPIRIN 81 MG TAB.CHEW GT SCH (09:20)
[2023-02-20] MEDS: CLOPIDOGREL 75 MG TABLET GT SCH (09:21)
[2023-02-20] MEDS: SODIUM CHLORIDE 1,000 MG TABLET GT SCH ×3 (09:21→17:10)
[2023-02-20] MEDS: VITAMINS A AND D 5 GM UD PKT TP SCH ×2 (09:22→21:44)
[2023-02-20] MEDS: REMEDY ESSENTIAL ZINC PASTE 113 GM TP SCH ×2 (09:22→21:44)
[2023-02-20] MEDS: HYDROGEN PEROXIDE 3% 118 ML BOTTLE TP SCH ×2 (09:23→19:29)
[2023-02-20] MEDS: NUTRISOURCE FIBER 4 GM PACKET GT SCH (21:44)
[2023-02-20] MEDS: ATORVASTATIN 20 MG TABLET GT SCH (21:44)
[2023-02-21] VITALS (10 sets, daily range): TEMP 97.3–97.5; O2SAT 98–99
[2023-02-21] MEDS: ALBUTEROL SULFATE 2.5 MG/3 ML NEBU NEB SCH ×4 (00:40→19:00)
[2023-02-21] MEDS: VITAL AF 1.2 1,000 ML LIQUID GT PRN (02:46)
[2023-02-21] MEDS: OMEPRAZOLE 20 MG CAPSULE.DR GT SCH ×2 (05:58→17:10)
[2023-02-21] MEDS: BACLOFEN 10 MG TABLET GT SCH ×3 (05:58→21:00)
[2023-02-21 07:29] LABS: BASOPHILS % (AUTO) 0.7 % (0.0-2.0); DIFFERENTIAL COMMENT 1; EOSINOPHILS # (AUTO) 0.5 K/uL (0.0-0.7); EOSINOPHILS % (AUTO) 11.3 % (0.0-7.0); HEMATOCRIT 36.6 % (36.7-47.1); HEMOGLOBIN 12.5 g/dL (12.5-16.3); LYMPHOCYTES # (AUTO) 1.3 K/uL (0.8-4.8); LYMPHOCYTES % (AUTO) 27.7 % (20.5-51.5); MEAN CORPUSCULAR HEMOGLOBIN 32.1 uug (23.8-33.4); MEAN CORPUSCULAR HGB CONC 34 g/dL (32.5-36.3); MEAN CORPUSCULAR VOLUME 93.8 fL (73.0-96.2); MONOCYTES # (AUTO) 0.3 K/uL (0.1-1.30); MONOCYTES % (AUTO) 7.3 % (0.0-11.0); NEUTROPHILS # (AUTO) 2.5 K/uL (1.8-8.9); PLATELET COUNT (AUTO) 217 K/uL (152-348); RED CELL DISTRIBUTION WIDTH 13.4 % (12.1-16.2); WHITE BLOOD COUNT (AUTO) 4.8 K/uL (3.6-10.2)
[2023-02-21 07:50] LABS: CALCIUM 9.1 mg/dL (8.5-10.1); CREATININE 0.6 mg/dL (0.6-1.3); POTASSIUM 4.1 mmol/L (3.5-5.1)
[2023-02-21] MEDS: HYDROGEN PEROXIDE 3% 118 ML BOTTLE TP SCH ×2 (07:52→19:00)
[2023-02-21] MEDS: ASPIRIN 81 MG TAB.CHEW GT SCH (08:20)
[2023-02-21] MEDS: ACIDOPHILUS/BULGARICUS CHEW TAB GT SCH ×2 (08:21→20:59)
[2023-02-21] MEDS: METOPROLOL TARTRATE 25 MG TABLET GT SCH ×2 (08:28→21:00)
[2023-02-21] MEDS: REMEDY ESSENTIAL ZINC PASTE 113 GM TP SCH ×2 (08:28→21:00)
[2023-02-21] MEDS: VITAMINS A AND D 5 GM UD PKT TP SCH ×2 (08:28→21:00)
[2023-02-21] MEDS: CLOPIDOGREL 75 MG TABLET GT SCH (08:31)
[2023-02-21] MEDS: LOSARTAN POTASSIUM 25 MG TABLET GT SCH (08:31)
[2023-02-21] MEDS: SODIUM CHLORIDE 1,000 MG TABLET GT SCH ×3 (08:31→17:08)
[2023-02-21] MEDS: ATORVASTATIN 20 MG TABLET GT SCH (20:59)
[2023-02-21] MEDS: MULTIVIT, IRON, MIN NO. 8, FA TABLET GT SCH (21:00)
[2023-02-21] MEDS: NUTRISOURCE FIBER 4 GM PACKET GT SCH (21:00)
[2023-02-21] MEDS: diphenhydrAMINE 25 MG/10 ML UDC GT PRN (21:01)
[2023-02-22] VITALS (10 sets, daily range): TEMP 97.1–97.7; O2SAT 97–99
[2023-02-22] MEDS: ALBUTEROL SULFATE 2.5 MG/3 ML NEBU NEB SCH ×4 (01:37→19:18)
[2023-02-22] MEDS: VITAL AF 1.2 1,000 ML LIQUID GT PRN (04:13)
[2023-02-22] MEDS: OMEPRAZOLE 20 MG CAPSULE.DR GT SCH ×2 (05:37→17:33)
[2023-02-22] MEDS: BACLOFEN 10 MG TABLET GT SCH ×3 (05:37→22:51)
[2023-02-22] MEDS: HYDROGEN PEROXIDE 3% 118 ML BOTTLE TP SCH ×2 (07:29→19:18)
[2023-02-22] MEDS: ACIDOPHILUS/BULGARICUS CHEW TAB GT SCH ×2 (09:00→20:33)
[2023-02-22] MEDS: VITAMINS A AND D 5 GM UD PKT TP SCH ×2 (09:00→20:34)
[2023-02-22] MEDS: ASPIRIN 81 MG TAB.CHEW GT SCH (09:00)
[2023-02-22] MEDS: METOPROLOL TARTRATE 25 MG TABLET GT SCH ×2 (09:00→20:36)
[2023-02-22] MEDS: REMEDY ESSENTIAL ZINC PASTE 113 GM TP SCH ×2 (09:00→20:34)
[2023-02-22] MEDS: SODIUM CHLORIDE 1,000 MG TABLET GT SCH ×3 (10:15→17:38)
[2023-02-22] MEDS: CLOPIDOGREL 75 MG TABLET GT SCH (10:15)
[2023-02-22] MEDS: LOSARTAN POTASSIUM 25 MG TABLET GT SCH (10:15)
[2023-02-22] MEDS: NUTRISOURCE FIBER 4 GM PACKET GT SCH (20:33)
[2023-02-22] MEDS: ATORVASTATIN 20 MG TABLET GT SCH (20:36)
[2023-02-23] VITALS (9 sets, daily range): TEMP 97.6–99.4; O2SAT 97–99
[2023-02-23] MEDS: ALBUTEROL SULFATE 2.5 MG/3 ML NEBU NEB SCH ×4 (02:21→19:45)
[2023-02-23] MEDS: VITAL AF 1.2 1,000 ML LIQUID GT PRN (04:17)
[2023-02-23] MEDS: OMEPRAZOLE 20 MG CAPSULE.DR GT SCH ×2 (06:01→17:59)
[2023-02-23] MEDS: BACLOFEN 10 MG TABLET GT SCH ×3 (06:01→22:00)
[2023-02-23] MEDS: HYDROGEN PEROXIDE 3% 118 ML BOTTLE TP SCH ×2 (08:20→20:29)
[2023-02-23] MEDS: SODIUM CHLORIDE 1,000 MG TABLET GT SCH ×3 (09:00→17:58)
[2023-02-23] MEDS: VITAMINS A AND D 5 GM UD PKT TP SCH ×2 (09:00→20:34)
[2023-02-23] MEDS: ASPIRIN 81 MG TAB.CHEW GT SCH (09:00)
[2023-02-23] MEDS: REMEDY ESSENTIAL ZINC PASTE 113 GM TP SCH ×2 (09:00→20:34)
[2023-02-23] MEDS: METOPROLOL TARTRATE 25 MG TABLET GT SCH ×2 (09:00→20:34)
[2023-02-23] MEDS: CLOPIDOGREL 75 MG TABLET GT SCH (09:00)
[2023-02-23] MEDS: ACIDOPHILUS/BULGARICUS CHEW TAB GT SCH ×2 (09:00→20:33)
[2023-02-23] MEDS: LOSARTAN POTASSIUM 25 MG TABLET GT SCH (09:00)
[2023-02-23] MEDS: ATORVASTATIN 20 MG TABLET GT SCH (20:33)
[2023-02-23] MEDS: NUTRISOURCE FIBER 4 GM PACKET GT SCH (20:34)
[2023-02-23] MEDS: MULTIVIT, IRON, MIN NO. 8, FA TABLET GT SCH (20:34)
[2023-02-24] VITALS (11 sets, daily range): TEMP 97.7–98.6; O2SAT 97–99
[2023-02-24] MEDS: ALBUTEROL SULFATE 2.5 MG/3 ML NEBU NEB SCH ×4 (01:28→20:34)
[2023-02-24] MEDS: VITAL AF 1.2 1,000 ML LIQUID GT PRN (02:46)
[2023-02-24] MEDS: diphenhydrAMINE 25 MG/10 ML UDC GT PRN (04:00)
[2023-02-24] MEDS: OMEPRAZOLE 20 MG CAPSULE.DR GT SCH ×2 (06:12→17:33)
[2023-02-24] MEDS: BACLOFEN 10 MG TABLET GT SCH ×3 (06:12→22:19)
[2023-02-24] MEDS: HYDROGEN PEROXIDE 3% 118 ML BOTTLE TP SCH ×2 (07:24→20:00)
[2023-02-24] MEDS: ASPIRIN 81 MG TAB.CHEW GT SCH (08:42)
[2023-02-24] MEDS: METOPROLOL TARTRATE 25 MG TABLET GT SCH ×2 (08:44→20:13)
[2023-02-24] MEDS: ACIDOPHILUS/BULGARICUS CHEW TAB GT SCH ×2 (08:44→20:13)
[2023-02-24] MEDS: CLOPIDOGREL 75 MG TABLET GT SCH (08:44)
[2023-02-24] MEDS: LOSARTAN POTASSIUM 25 MG TABLET GT SCH (08:44)
[2023-02-24] MEDS: SODIUM CHLORIDE 1,000 MG TABLET GT SCH ×3 (08:44→17:33)
[2023-02-24] MEDS: VITAMINS A AND D 5 GM UD PKT TP SCH ×2 (08:44→20:14)
[2023-02-24] MEDS: REMEDY ESSENTIAL ZINC PASTE 113 GM TP SCH ×2 (08:44→20:14)
[2023-02-24] MEDS: ATORVASTATIN 20 MG TABLET GT SCH (20:13)
[2023-02-24] MEDS: NUTRISOURCE FIBER 4 GM PACKET GT SCH (20:13)
[2023-02-25] VITALS (10 sets, daily range): TEMP 97.6–97.8; O2SAT 97–99
[2023-02-25] MEDS: ALBUTEROL SULFATE 2.5 MG/3 ML NEBU NEB SCH ×4 (01:00→20:16)
[2023-02-25] MEDS: VITAL AF 1.2 1,000 ML LIQUID GT PRN (02:30)
[2023-02-25] MEDS: BACLOFEN 10 MG TABLET GT SCH ×3 (05:39→21:21)
[2023-02-25] MEDS: OMEPRAZOLE 20 MG CAPSULE.DR GT SCH ×2 (05:39→17:18)
[2023-02-25] MEDS: HYDROGEN PEROXIDE 3% 118 ML BOTTLE TP SCH ×2 (07:59→20:16)
[2023-02-25] MEDS: ASPIRIN 81 MG TAB.CHEW GT SCH (09:19)
[2023-02-25] MEDS: LOSARTAN POTASSIUM 25 MG TABLET GT SCH (09:20)
[2023-02-25] MEDS: ACIDOPHILUS/BULGARICUS CHEW TAB GT SCH ×2 (09:20→21:19)
[2023-02-25] MEDS: CLOPIDOGREL 75 MG TABLET GT SCH (09:20)
[2023-02-25] MEDS: VITAMINS A AND D 5 GM UD PKT TP SCH ×2 (09:20→21:21)
[2023-02-25] MEDS: REMEDY ESSENTIAL ZINC PASTE 113 GM TP SCH ×2 (09:20→21:21)
[2023-02-25] MEDS: METOPROLOL TARTRATE 25 MG TABLET GT SCH ×2 (09:20→21:20)
[2023-02-25] MEDS: SODIUM CHLORIDE 1,000 MG TABLET GT SCH ×3 (09:20→17:18)
[2023-02-25] MEDS: ATORVASTATIN 20 MG TABLET GT SCH (21:20)
[2023-02-25] MEDS: NUTRISOURCE FIBER 4 GM PACKET GT SCH (21:20)
[2023-02-25] MEDS: MULTIVIT, IRON, MIN NO. 8, FA TABLET GT SCH (21:20)
[2023-02-26] VITALS (10 sets, daily range): TEMP 98–98.2; O2SAT 97–99
[2023-02-26] MEDS: VITAL AF 1.2 1,000 ML LIQUID GT PRN (00:39)
[2023-02-26] MEDS: ALBUTEROL SULFATE 2.5 MG/3 ML NEBU NEB SCH ×4 (01:07→19:19)
[2023-02-26] MEDS: BACLOFEN 10 MG TABLET GT SCH ×3 (05:03→21:01)
[2023-02-26] MEDS: OMEPRAZOLE 20 MG CAPSULE.DR GT SCH ×2 (05:03→17:54)
[2023-02-26] MEDS: HYDROGEN PEROXIDE 3% 118 ML BOTTLE TP SCH ×2 (07:13→23:05)
[2023-02-26] MEDS: LOSARTAN POTASSIUM 25 MG TABLET GT SCH (09:00)
[2023-02-26] MEDS: ASPIRIN 81 MG TAB.CHEW GT SCH (09:00)
[2023-02-26] MEDS: METOPROLOL TARTRATE 25 MG TABLET GT SCH ×2 (09:02→21:13)
[2023-02-26] MEDS: ACIDOPHILUS/BULGARICUS CHEW TAB GT SCH ×2 (09:02→20:58)
[2023-02-26] MEDS: SODIUM CHLORIDE 1,000 MG TABLET GT SCH ×3 (09:02→17:54)
[2023-02-26] MEDS: CLOPIDOGREL 75 MG TABLET GT SCH (09:03)
[2023-02-26] MEDS: REMEDY ESSENTIAL ZINC PASTE 113 GM TP SCH ×2 (09:14→20:58)
[2023-02-26] MEDS: VITAMINS A AND D 5 GM UD PKT TP SCH ×2 (09:14→20:58)
[2023-02-26] MEDS: NUTRISOURCE FIBER 4 GM PACKET GT SCH (20:58)
[2023-02-26] MEDS: ATORVASTATIN 20 MG TABLET GT SCH (21:01)
[2023-02-27] VITALS (10 sets, daily range): TEMP 97–98.8; O2SAT 96–99
[2023-02-27] MEDS: VITAL AF 1.2 1,000 ML LIQUID GT PRN
[2023-02-27] MEDS: ALBUTEROL SULFATE 2.5 MG/3 ML NEBU NEB SCH ×4 (01:17→19:09)
[2023-02-27] MEDS: BACLOFEN 10 MG TABLET GT SCH ×3 (06:45→21:47)
[2023-02-27] MEDS: OMEPRAZOLE 20 MG CAPSULE.DR GT SCH ×2 (06:45→18:02)
[2023-02-27] MEDS: HYDROGEN PEROXIDE 3% 118 ML BOTTLE TP SCH ×2 (07:15→19:10)
[2023-02-27] MEDS: ASPIRIN 81 MG TAB.CHEW GT SCH (09:22)
[2023-02-27] MEDS: VITAMINS A AND D 5 GM UD PKT TP SCH ×2 (09:23→20:40)
[2023-02-27] MEDS: METOPROLOL TARTRATE 25 MG TABLET GT SCH ×2 (09:23→21:47)
[2023-02-27] MEDS: REMEDY ESSENTIAL ZINC PASTE 113 GM TP SCH ×2 (09:23→20:40)
[2023-02-27] MEDS: LOSARTAN POTASSIUM 25 MG TABLET GT SCH (09:23)
[2023-02-27] MEDS: ACIDOPHILUS/BULGARICUS CHEW TAB GT SCH ×2 (09:23→20:40)
[2023-02-27] MEDS: CLOPIDOGREL 75 MG TABLET GT SCH (09:23)
[2023-02-27] MEDS: SODIUM CHLORIDE 1,000 MG TABLET GT SCH ×3 (09:23→17:00)
[2023-02-27] MEDS: MULTIVIT, IRON, MIN NO. 8, FA TABLET GT SCH (20:40)
[2023-02-27] MEDS: NUTRISOURCE FIBER 4 GM PACKET GT SCH (20:40)
[2023-02-27] MEDS: ATORVASTATIN 20 MG TABLET GT SCH (21:46)
[2023-02-28] VITALS (10 sets, daily range): TEMP 97.7–97.8; O2SAT 97–99
[2023-02-28] MEDS: ALBUTEROL SULFATE 2.5 MG/3 ML NEBU NEB SCH ×4 (01:13→19:13)
[2023-02-28] MEDS: OMEPRAZOLE 20 MG CAPSULE.DR GT SCH ×2 (06:42→17:17)
[2023-02-28] MEDS: BACLOFEN 10 MG TABLET GT SCH ×3 (06:42→22:31)
[2023-02-28] MEDS: HYDROGEN PEROXIDE 3% 118 ML BOTTLE TP SCH ×2 (08:04→19:13)
[2023-02-28] MEDS: ASPIRIN 81 MG TAB.CHEW GT SCH (08:57)
[2023-02-28] MEDS: ACIDOPHILUS/BULGARICUS CHEW TAB GT SCH ×2 (08:58→20:49)
[2023-02-28] MEDS: METOPROLOL TARTRATE 25 MG TABLET GT SCH ×2 (08:58→20:50)
[2023-02-28] MEDS: REMEDY ESSENTIAL ZINC PASTE 113 GM TP SCH ×2 (08:58→20:50)
[2023-02-28] MEDS: VITAMINS A AND D 5 GM UD PKT TP SCH ×2 (08:58→20:50)
[2023-02-28] MEDS: SODIUM CHLORIDE 1,000 MG TABLET GT SCH ×3 (08:58→17:17)
[2023-02-28] MEDS: LOSARTAN POTASSIUM 25 MG TABLET GT SCH (08:58)
[2023-02-28] MEDS: CLOPIDOGREL 75 MG TABLET GT SCH (08:58)
[2023-02-28] MEDS: VITAL AF 1.2 1,000 ML LIQUID GT PRN ×2 (18:00)
[2023-02-28] MEDS: ATORVASTATIN 20 MG TABLET GT SCH (20:49)
[2023-02-28] MEDS: NUTRISOURCE FIBER 4 GM PACKET GT SCH (20:50)
[2023-03-01] VITALS (11 sets, daily range): TEMP 97.5–98.3; O2SAT 97–99
[2023-03-01] MEDS: ALBUTEROL SULFATE 2.5 MG/3 ML NEBU NEB SCH ×4 (01:40→20:15)
[2023-03-01] MEDS: BACLOFEN 10 MG TABLET GT SCH ×3 (05:55→21:10)
[2023-03-01] MEDS: OMEPRAZOLE 20 MG CAPSULE.DR GT SCH ×2 (05:55→17:53)
[2023-03-01] MEDS: HYDROGEN PEROXIDE 3% 118 ML BOTTLE TP SCH ×2 (07:12→21:00)
[2023-03-01] MEDS: METOPROLOL TARTRATE 25 MG TABLET GT SCH ×2 (09:00→21:10)
[2023-03-01] MEDS: ASPIRIN 81 MG TAB.CHEW GT SCH (09:04)
[2023-03-01] MEDS: ACIDOPHILUS/BULGARICUS CHEW TAB GT SCH ×2 (09:05→21:09)
[2023-03-01] MEDS: LOSARTAN POTASSIUM 25 MG TABLET GT SCH (09:05)
[2023-03-01] MEDS: SODIUM CHLORIDE 1,000 MG TABLET GT SCH ×3 (09:06→17:52)
[2023-03-01] MEDS: CLOPIDOGREL 75 MG TABLET GT SCH (09:06)
[2023-03-01] MEDS: VITAMINS A AND D 5 GM UD PKT TP SCH ×2 (09:07→21:10)
[2023-03-01] MEDS: REMEDY ESSENTIAL ZINC PASTE 113 GM TP SCH ×2 (09:07→21:10)
[2023-03-01] MEDS: ATORVASTATIN 20 MG TABLET GT SCH (21:09)
[2023-03-01] MEDS: MULTIVIT, IRON, MIN NO. 8, FA TABLET GT SCH (21:10)
[2023-03-01] MEDS: NUTRISOURCE FIBER 4 GM PACKET GT SCH (21:10)
[2023-03-01] MEDS: VITAL AF 1.2 1,000 ML LIQUID GT PRN (22:44)
[2023-03-02] VITALS (10 sets, daily range): TEMP 97.1–97.7; O2SAT 97–99
[2023-03-02] MEDS: ALBUTEROL SULFATE 2.5 MG/3 ML NEBU NEB SCH ×4 (01:01→19:32)
[2023-03-02] MEDS: OMEPRAZOLE 20 MG CAPSULE.DR GT SCH ×2 (06:29→17:48)
[2023-03-02] MEDS: BACLOFEN 10 MG TABLET GT SCH ×3 (06:29→21:04)
[2023-03-02] MEDS: HYDROGEN PEROXIDE 3% 118 ML BOTTLE TP SCH ×2 (07:30→19:32)
[2023-03-02] MEDS: ACIDOPHILUS/BULGARICUS CHEW TAB GT SCH ×2 (09:00→21:04)
[2023-03-02] MEDS: REMEDY ESSENTIAL ZINC PASTE 113 GM TP SCH ×2 (09:00→21:04)
[2023-03-02] MEDS: ASPIRIN 81 MG TAB.CHEW GT SCH (09:00)
[2023-03-02] MEDS: LOSARTAN POTASSIUM 25 MG TABLET GT SCH (09:00)
[2023-03-02] MEDS: CLOPIDOGREL 75 MG TABLET GT SCH (09:00)
[2023-03-02] MEDS: SODIUM CHLORIDE 1,000 MG TABLET GT SCH ×3 (09:00→17:44)
[2023-03-02] MEDS: METOPROLOL TARTRATE 25 MG TABLET GT SCH ×2 (09:00→21:04)
[2023-03-02] MEDS: VITAMINS A AND D 5 GM UD PKT TP SCH ×2 (09:00→21:04)
[2023-03-02] MEDS: ACETAMINOPHEN 650 MG/20 ML UDC- SA PATIENTS-PAIN ONLY GT PRN (17:56)
[2023-03-02] MEDS: ATORVASTATIN 20 MG TABLET GT SCH (21:04)
[2023-03-02] MEDS: NUTRISOURCE FIBER 4 GM PACKET GT SCH (21:04)
[2023-03-02] MEDS: VITAL AF 1.2 1,000 ML LIQUID GT PRN (23:09)
[2023-03-03] VITALS (10 sets, daily range): TEMP 97.2–98; O2SAT 97–99
[2023-03-03] MEDS: ALBUTEROL SULFATE 2.5 MG/3 ML NEBU NEB SCH ×4 (01:05→20:15)
[2023-03-03] MEDS: OMEPRAZOLE 20 MG CAPSULE.DR GT SCH ×2 (05:52→17:26)
[2023-03-03] MEDS: BACLOFEN 10 MG TABLET GT SCH ×3 (05:52→21:06)
[2023-03-03] MEDS: HYDROGEN PEROXIDE 3% 118 ML BOTTLE TP SCH ×2 (07:17→21:00)
[2023-03-03] MEDS: METOPROLOL TARTRATE 25 MG TABLET GT SCH ×2 (09:00→21:05)
[2023-03-03] MEDS: LOSARTAN POTASSIUM 25 MG TABLET GT SCH (09:00)
[2023-03-03] MEDS: ASPIRIN 81 MG TAB.CHEW GT SCH (09:35)
[2023-03-03] MEDS: ACIDOPHILUS/BULGARICUS CHEW TAB GT SCH ×2 (09:36→21:05)
[2023-03-03] MEDS: VITAMINS A AND D 5 GM UD PKT TP SCH ×2 (09:39→21:06)
[2023-03-03] MEDS: CLOPIDOGREL 75 MG TABLET GT SCH (09:39)
[2023-03-03] MEDS: SODIUM CHLORIDE 1,000 MG TABLET GT SCH ×3 (09:39→17:26)
[2023-03-03] MEDS: REMEDY ESSENTIAL ZINC PASTE 113 GM TP SCH ×2 (09:39→21:06)
[2023-03-03] MEDS: VITAL AF 1.2 1,000 ML LIQUID GT PRN (18:45)
[2023-03-03] MEDS: MULTIVIT, IRON, MIN NO. 8, FA TABLET GT SCH (21:05)
[2023-03-03] MEDS: NUTRISOURCE FIBER 4 GM PACKET GT SCH (21:05)
[2023-03-03] MEDS: ATORVASTATIN 20 MG TABLET GT SCH (21:05)
[2023-03-04] VITALS (10 sets, daily range): TEMP 96.1–97; O2SAT 97–99
[2023-03-04] MEDS: ALBUTEROL SULFATE 2.5 MG/3 ML NEBU NEB SCH ×4 (01:09→19:32)
[2023-03-04] MEDS: BACLOFEN 10 MG TABLET GT SCH ×3 (06:05→22:00)
[2023-03-04] MEDS: OMEPRAZOLE 20 MG CAPSULE.DR GT SCH ×2 (06:05→17:58)
[2023-03-04] MEDS: HYDROGEN PEROXIDE 3% 118 ML BOTTLE TP SCH ×2 (07:09→19:32)
[2023-03-04] MEDS: LOSARTAN POTASSIUM 25 MG TABLET GT SCH (09:48)
[2023-03-04] MEDS: ACIDOPHILUS/BULGARICUS CHEW TAB GT SCH ×2 (09:48→21:00)
[2023-03-04] MEDS: ASPIRIN 81 MG TAB.CHEW GT SCH (09:48)
[2023-03-04] MEDS: SODIUM CHLORIDE 1,000 MG TABLET GT SCH ×3 (09:49→17:58)
[2023-03-04] MEDS: METOPROLOL TARTRATE 25 MG TABLET GT SCH ×2 (09:49→21:00)
[2023-03-04] MEDS: REMEDY ESSENTIAL ZINC PASTE 113 GM TP SCH ×2 (09:50→21:00)
[2023-03-04] MEDS: VITAMINS A AND D 5 GM UD PKT TP SCH ×2 (09:50→21:00)
[2023-03-04] MEDS: CLOPIDOGREL 75 MG TABLET GT SCH (09:50)
[2023-03-04] MEDS: VITAL AF 1.2 1,000 ML LIQUID GT PRN (13:19)
[2023-03-04] MEDS: diphenhydrAMINE 25 MG/10 ML UDC GT PRN (17:58)
[2023-03-04] MEDS: ATORVASTATIN 20 MG TABLET GT SCH (21:00)
[2023-03-04] MEDS: NUTRISOURCE FIBER 4 GM PACKET GT SCH (21:00)
[2023-03-05] VITALS (9 sets, daily range): TEMP 97.6–98.1; O2SAT 97–99
[2023-03-05] MEDS: ALBUTEROL SULFATE 2.5 MG/3 ML NEBU NEB SCH ×4 (00:55→19:37)
[2023-03-05] MEDS: OMEPRAZOLE 20 MG CAPSULE.DR GT SCH ×2 (06:00→17:04)
[2023-03-05] MEDS: BACLOFEN 10 MG TABLET GT SCH ×3 (06:00→22:22)
[2023-03-05] MEDS: HYDROGEN PEROXIDE 3% 118 ML BOTTLE TP SCH ×2 (07:58→19:38)
[2023-03-05] MEDS: ACIDOPHILUS/BULGARICUS CHEW TAB GT SCH ×2 (09:38→20:55)
[2023-03-05] MEDS: ASPIRIN 81 MG TAB.CHEW GT SCH (09:38)
[2023-03-05] MEDS: LOSARTAN POTASSIUM 25 MG TABLET GT SCH (09:38)
[2023-03-05] MEDS: REMEDY ESSENTIAL ZINC PASTE 113 GM TP SCH ×2 (09:39→20:56)
[2023-03-05] MEDS: CLOPIDOGREL 75 MG TABLET GT SCH (09:39)
[2023-03-05] MEDS: METOPROLOL TARTRATE 25 MG TABLET GT SCH ×2 (09:39→20:56)
[2023-03-05] MEDS: SODIUM CHLORIDE 1,000 MG TABLET GT SCH ×3 (09:39→17:04)
[2023-03-05] MEDS: VITAMINS A AND D 5 GM UD PKT TP SCH ×2 (09:39→20:56)
[2023-03-05] MEDS: VITAL AF 1.2 1,000 ML LIQUID GT PRN (12:11)
[2023-03-05] MEDS: ATORVASTATIN 20 MG TABLET GT SCH (20:56)
[2023-03-05] MEDS: MULTIVIT, IRON, MIN NO. 8, FA TABLET GT SCH (20:56)
[2023-03-05] MEDS: NUTRISOURCE FIBER 4 GM PACKET GT SCH (20:56)
[2023-03-06] VITALS (10 sets, daily range): TEMP 98.2–98.4; O2SAT 98–99
[2023-03-06] MEDS: ALBUTEROL SULFATE 2.5 MG/3 ML NEBU NEB SCH ×4 (00:44→19:27)
[2023-03-06] MEDS: BACLOFEN 10 MG TABLET GT SCH ×3 (05:02→22:10)
[2023-03-06] MEDS: OMEPRAZOLE 20 MG CAPSULE.DR GT SCH ×2 (05:02→17:12)
[2023-03-06] MEDS: HYDROGEN PEROXIDE 3% 118 ML BOTTLE TP SCH ×2 (08:18→19:27)
[2023-03-06] MEDS: LOSARTAN POTASSIUM 25 MG TABLET GT SCH (09:00)
[2023-03-06] MEDS: METOPROLOL TARTRATE 25 MG TABLET GT SCH ×2 (09:00→20:13)
[2023-03-06] MEDS: ASPIRIN 81 MG TAB.CHEW GT SCH (09:41)
[2023-03-06] MEDS: ACIDOPHILUS/BULGARICUS CHEW TAB GT SCH ×2 (09:42→20:13)
[2023-03-06] MEDS: SODIUM CHLORIDE 1,000 MG TABLET GT SCH ×3 (09:44→17:12)
[2023-03-06] MEDS: REMEDY ESSENTIAL ZINC PASTE 113 GM TP SCH ×2 (09:44→20:14)
[2023-03-06] MEDS: CLOPIDOGREL 75 MG TABLET GT SCH (09:44)
[2023-03-06] MEDS: VITAMINS A AND D 5 GM UD PKT TP SCH ×2 (09:44→20:14)
[2023-03-06] MEDS: ATORVASTATIN 20 MG TABLET GT SCH (20:13)
[2023-03-06] MEDS: NUTRISOURCE FIBER 4 GM PACKET GT SCH (20:13)
[2023-03-07] VITALS (10 sets, daily range): TEMP 97.6–98.2; O2SAT 97–99
[2023-03-07] MEDS: VITAL AF 1.2 1,000 ML LIQUID GT PRN ×2 (00:09→22:25)
[2023-03-07] MEDS: ALBUTEROL SULFATE 2.5 MG/3 ML NEBU NEB SCH ×4 (00:52→19:18)
[2023-03-07] MEDS: OMEPRAZOLE 20 MG CAPSULE.DR GT SCH ×2 (05:28→17:41)
[2023-03-07] MEDS: BACLOFEN 10 MG TABLET GT SCH ×3 (05:28→22:25)
[2023-03-07] MEDS: HYDROGEN PEROXIDE 3% 118 ML BOTTLE TP SCH ×2 (09:00→19:18)
[2023-03-07] MEDS: METOPROLOL TARTRATE 25 MG TABLET GT SCH ×2 (09:00→20:31)
[2023-03-07] MEDS: ACIDOPHILUS/BULGARICUS CHEW TAB GT SCH ×2 (09:12→20:30)
[2023-03-07] MEDS: ASPIRIN 81 MG TAB.CHEW GT SCH (09:12)
[2023-03-07] MEDS: REMEDY ESSENTIAL ZINC PASTE 113 GM TP SCH ×2 (09:14→20:32)
[2023-03-07] MEDS: VITAMINS A AND D 5 GM UD PKT TP SCH ×2 (09:15→20:32)
[2023-03-07] MEDS: SODIUM CHLORIDE 1,000 MG TABLET GT SCH ×3 (09:21→17:40)
[2023-03-07] MEDS: LOSARTAN POTASSIUM 25 MG TABLET GT SCH (09:21)
[2023-03-07] MEDS: CLOPIDOGREL 75 MG TABLET GT SCH (09:21)
[2023-03-07] MEDS: ATORVASTATIN 20 MG TABLET GT SCH (20:31)
[2023-03-07] MEDS: NUTRISOURCE FIBER 4 GM PACKET GT SCH (20:31)
[2023-03-07] MEDS: MULTIVIT, IRON, MIN NO. 8, FA TABLET GT SCH (20:31)
[2023-03-08] VITALS (10 sets, daily range): TEMP 97.2–98; O2SAT 98–99
[2023-03-08] MEDS: ALBUTEROL SULFATE 2.5 MG/3 ML NEBU NEB SCH ×4 (01:29→19:12)
[2023-03-08] MEDS: BACLOFEN 10 MG TABLET GT SCH ×3 (05:35→21:47)
[2023-03-08] MEDS: OMEPRAZOLE 20 MG CAPSULE.DR GT SCH ×2 (05:35→17:48)
[2023-03-08] MEDS: HYDROGEN PEROXIDE 3% 118 ML BOTTLE TP SCH ×2 (08:12→19:13)
[2023-03-08] MEDS: ACIDOPHILUS/BULGARICUS CHEW TAB GT SCH ×2 (09:00→21:46)
[2023-03-08] MEDS: REMEDY ESSENTIAL ZINC PASTE 113 GM TP SCH ×2 (09:00→21:47)
[2023-03-08] MEDS: ASPIRIN 81 MG TAB.CHEW GT SCH (09:00)
[2023-03-08] MEDS: VITAMINS A AND D 5 GM UD PKT TP SCH ×2 (09:00→21:47)
[2023-03-08] MEDS: LOSARTAN POTASSIUM 25 MG TABLET GT SCH (10:20)
[2023-03-08] MEDS: METOPROLOL TARTRATE 25 MG TABLET GT SCH ×2 (10:20→21:47)
[2023-03-08] MEDS: SODIUM CHLORIDE 1,000 MG TABLET GT SCH ×3 (10:20→17:48)
[2023-03-08] MEDS: CLOPIDOGREL 75 MG TABLET GT SCH (10:20)
[2023-03-08] MEDS: ATORVASTATIN 20 MG TABLET GT SCH (21:46)
[2023-03-08] MEDS: NUTRISOURCE FIBER 4 GM PACKET GT SCH (21:47)
[2023-03-08] MEDS: VITAL AF 1.2 1,000 ML LIQUID GT PRN (22:05)
[2023-03-09] VITALS (9 sets, daily range): TEMP 97.5–98.1; O2SAT 97–99
[2023-03-09] MEDS: ALBUTEROL SULFATE 2.5 MG/3 ML NEBU NEB SCH ×4 (01:38→19:42)
[2023-03-09] MEDS: OMEPRAZOLE 20 MG CAPSULE.DR GT SCH ×2 (06:21→17:58)
[2023-03-09] MEDS: BACLOFEN 10 MG TABLET GT SCH ×3 (06:29→21:34)
[2023-03-09] MEDS: HYDROGEN PEROXIDE 3% 118 ML BOTTLE TP SCH ×2 (08:05→19:42)
[2023-03-09] MEDS: ASPIRIN 81 MG TAB.CHEW GT SCH (08:27)
[2023-03-09] MEDS: METOPROLOL TARTRATE 25 MG TABLET GT SCH ×2 (08:28→21:42)
[2023-03-09] MEDS: LOSARTAN POTASSIUM 25 MG TABLET GT SCH (08:28)
[2023-03-09] MEDS: ACIDOPHILUS/BULGARICUS CHEW TAB GT SCH ×2 (08:28→21:32)
[2023-03-09] MEDS: SODIUM CHLORIDE 1,000 MG TABLET GT SCH ×3 (08:31→17:58)
[2023-03-09] MEDS: REMEDY ESSENTIAL ZINC PASTE 113 GM TP SCH ×2 (08:31→21:32)
[2023-03-09] MEDS: CLOPIDOGREL 75 MG TABLET GT SCH (08:31)
[2023-03-09] MEDS: VITAMINS A AND D 5 GM UD PKT TP SCH ×2 (08:31→21:32)
[2023-03-09] MEDS: MULTIVIT, IRON, MIN NO. 8, FA TABLET GT SCH (21:32)
[2023-03-09] MEDS: NUTRISOURCE FIBER 4 GM PACKET GT SCH (21:34)
[2023-03-09] MEDS: ATORVASTATIN 20 MG TABLET GT SCH (21:42)
[2023-03-10] VITALS (9 sets, daily range): TEMP 97.4–98.1; O2SAT 98–99
[2023-03-10] MEDS: ALBUTEROL SULFATE 2.5 MG/3 ML NEBU NEB SCH ×4 (00:47→19:33)
[2023-03-10] MEDS: diphenhydrAMINE 25 MG/10 ML UDC GT PRN ×2 (01:35→21:18)
[2023-03-10] MEDS: VITAL AF 1.2 1,000 ML LIQUID GT PRN ×2 (01:35→23:44)
[2023-03-10] MEDS: BACLOFEN 10 MG TABLET GT SCH ×3 (05:24→21:17)
[2023-03-10] MEDS: OMEPRAZOLE 20 MG CAPSULE.DR GT SCH ×2 (05:24→17:06)
[2023-03-10] MEDS: HYDROGEN PEROXIDE 3% 118 ML BOTTLE TP SCH ×2 (09:00→19:33)
[2023-03-10] MEDS: ASPIRIN 81 MG TAB.CHEW GT SCH (09:10)
[2023-03-10] MEDS: ACIDOPHILUS/BULGARICUS CHEW TAB GT SCH ×2 (09:10→21:16)
[2023-03-10] MEDS: VITAMINS A AND D 5 GM UD PKT TP SCH ×2 (09:13→21:17)
[2023-03-10] MEDS: CLOPIDOGREL 75 MG TABLET GT SCH (09:13)
[2023-03-10] MEDS: SODIUM CHLORIDE 1,000 MG TABLET GT SCH ×3 (09:13→17:06)
[2023-03-10] MEDS: REMEDY ESSENTIAL ZINC PASTE 113 GM TP SCH ×2 (09:13→21:17)
[2023-03-10] MEDS: LOSARTAN POTASSIUM 25 MG TABLET GT SCH (09:13)
[2023-03-10] MEDS: METOPROLOL TARTRATE 25 MG TABLET GT SCH ×2 (09:13→21:17)
[2023-03-10] MEDS ORDERED: INFLUENZA VACCINE 2023-2024 0.5 ML DISP.SYRIN IM ONE (13:00)
[2023-03-10] MEDS: ATORVASTATIN 20 MG TABLET GT SCH (21:16)
[2023-03-10] MEDS: NUTRISOURCE FIBER 4 GM PACKET GT SCH (21:17)
[2023-03-11] VITALS (11 sets, daily range): TEMP 97.1–98.1; O2SAT 96–99
[2023-03-11] MEDS: ALBUTEROL SULFATE 2.5 MG/3 ML NEBU NEB SCH ×4 (01:34→19:15)
[2023-03-11] MEDS: BACLOFEN 10 MG TABLET GT SCH ×3 (05:20→21:37)
[2023-03-11] MEDS: OMEPRAZOLE 20 MG CAPSULE.DR GT SCH ×2 (05:20→17:03)
[2023-03-11] MEDS: LOSARTAN POTASSIUM 25 MG TABLET GT SCH (08:24)
[2023-03-11] MEDS: ACIDOPHILUS/BULGARICUS CHEW TAB GT SCH ×2 (08:26→21:37)
[2023-03-11] MEDS: ASPIRIN 81 MG TAB.CHEW GT SCH (08:27)
[2023-03-11] MEDS: REMEDY ESSENTIAL ZINC PASTE 113 GM TP SCH ×2 (08:28→21:37)
[2023-03-11] MEDS: SODIUM CHLORIDE 1,000 MG TABLET GT SCH ×3 (08:28→17:01)
[2023-03-11] MEDS: VITAMINS A AND D 5 GM UD PKT TP SCH ×2 (08:28→21:37)
[2023-03-11] MEDS: CLOPIDOGREL 75 MG TABLET GT SCH (08:28)
[2023-03-11] MEDS: METOPROLOL TARTRATE 25 MG TABLET GT SCH ×2 (08:29→21:36)
[2023-03-11] MEDS: HYDROGEN PEROXIDE 3% 118 ML BOTTLE TP SCH ×2 (08:53→19:15)
[2023-03-11] MEDS: VITAL AF 1.2 1,000 ML LIQUID GT PRN (18:30)
[2023-03-11] MEDS: NUTRISOURCE FIBER 4 GM PACKET GT SCH (21:36)
[2023-03-11] MEDS: MULTIVIT, IRON, MIN NO. 8, FA TABLET GT SCH (21:36)
[2023-03-11] MEDS: ATORVASTATIN 20 MG TABLET GT SCH (21:36)
[2023-03-11] MEDS: ACETAMINOPHEN 650 MG/20 ML UDC- SA PATIENTS-PAIN ONLY GT PRN (21:38)
[2023-03-12] VITALS (10 sets, daily range): TEMP 98.2–98.6; O2SAT 97–99
[2023-03-12] MEDS: ALBUTEROL SULFATE 2.5 MG/3 ML NEBU NEB SCH ×4 (02:03→19:32)
[2023-03-12] MEDS: OMEPRAZOLE 20 MG CAPSULE.DR GT SCH ×2 (06:24→17:02)
[2023-03-12] MEDS: BACLOFEN 10 MG TABLET GT SCH ×3 (06:24→21:30)
[2023-03-12] MEDS: METOPROLOL TARTRATE 25 MG TABLET GT SCH ×2 (09:00→21:29)
[2023-03-12] MEDS: HYDROGEN PEROXIDE 3% 118 ML BOTTLE TP SCH ×2 (09:00→19:32)
[2023-03-12] MEDS: ACIDOPHILUS/BULGARICUS CHEW TAB GT SCH ×2 (09:09→21:29)
[2023-03-12] MEDS: LOSARTAN POTASSIUM 25 MG TABLET GT SCH (09:09)
[2023-03-12] MEDS: ASPIRIN 81 MG TAB.CHEW GT SCH (09:09)
[2023-03-12] MEDS: SODIUM CHLORIDE 1,000 MG TABLET GT SCH ×3 (09:10→17:02)
[2023-03-12] MEDS: REMEDY ESSENTIAL ZINC PASTE 113 GM TP SCH ×2 (09:10→21:30)
[2023-03-12] MEDS: CLOPIDOGREL 75 MG TABLET GT SCH (09:10)
[2023-03-12] MEDS: VITAMINS A AND D 5 GM UD PKT TP SCH ×2 (09:11→21:30)
[2023-03-12] MEDS: VITAL AF 1.2 1,000 ML LIQUID GT PRN (17:03)
[2023-03-12] MEDS: ATORVASTATIN 20 MG TABLET GT SCH (21:29)
[2023-03-12] MEDS: NUTRISOURCE FIBER 4 GM PACKET GT SCH (21:29)
[2023-03-13] VITALS (10 sets, daily range): TEMP 97–97.2; O2SAT 97–99
[2023-03-13] MEDS: ALBUTEROL SULFATE 2.5 MG/3 ML NEBU NEB SCH ×4 (01:33→19:22)
[2023-03-13] MEDS: BACLOFEN 10 MG TABLET GT SCH ×3 (05:37→21:35)
[2023-03-13] MEDS: OMEPRAZOLE 20 MG CAPSULE.DR GT SCH ×2 (05:37→17:45)
[2023-03-13] MEDS: HYDROGEN PEROXIDE 3% 118 ML BOTTLE TP SCH ×2 (07:21→19:22)
[2023-03-13] MEDS: METOPROLOL TARTRATE 25 MG TABLET GT SCH ×2 (09:00→21:35)
[2023-03-13] MEDS: LOSARTAN POTASSIUM 25 MG TABLET GT SCH (09:00)
[2023-03-13] MEDS: ASPIRIN 81 MG TAB.CHEW GT SCH (09:13)
[2023-03-13] MEDS: ACIDOPHILUS/BULGARICUS CHEW TAB GT SCH ×2 (09:13→21:34)
[2023-03-13] MEDS: VITAMINS A AND D 5 GM UD PKT TP SCH ×2 (09:14→21:35)
[2023-03-13] MEDS: diphenhydrAMINE 25 MG/10 ML UDC GT PRN (09:14)
[2023-03-13] MEDS: REMEDY ESSENTIAL ZINC PASTE 113 GM TP SCH ×2 (09:14→21:35)
[2023-03-13] MEDS: SODIUM CHLORIDE 1,000 MG TABLET GT SCH ×3 (09:22→17:45)
[2023-03-13] MEDS: CLOPIDOGREL 75 MG TABLET GT SCH (09:22)
[2023-03-13] MEDS: VITAL AF 1.2 1,000 ML LIQUID GT PRN (14:17)
[2023-03-13] MEDS: ATORVASTATIN 20 MG TABLET GT SCH (21:34)
[2023-03-13] MEDS: NUTRISOURCE FIBER 4 GM PACKET GT SCH (21:35)
[2023-03-13] MEDS: MULTIVIT, IRON, MIN NO. 8, FA TABLET GT SCH (21:35)
[2023-03-14] VITALS (9 sets, daily range): TEMP 98.1–98.2; O2SAT 97–99
[2023-03-14] MEDS: ALBUTEROL SULFATE 2.5 MG/3 ML NEBU NEB SCH ×4 (02:00→19:33)
[2023-03-14] MEDS: OMEPRAZOLE 20 MG CAPSULE.DR GT SCH ×2 (05:59→17:11)
[2023-03-14] MEDS: BACLOFEN 10 MG TABLET GT SCH ×3 (05:59→21:31)
[2023-03-14] MEDS: ASPIRIN 81 MG TAB.CHEW GT SCH (08:42)
[2023-03-14] MEDS: ACIDOPHILUS/BULGARICUS CHEW TAB GT SCH ×2 (08:43→21:30)
[2023-03-14] MEDS: VITAMINS A AND D 5 GM UD PKT TP SCH ×2 (08:50→21:31)
[2023-03-14] MEDS: REMEDY ESSENTIAL ZINC PASTE 113 GM TP SCH ×2 (08:50→21:31)
[2023-03-14] MEDS: METOPROLOL TARTRATE 25 MG TABLET GT SCH ×2 (08:53→21:31)
[2023-03-14] MEDS: CLOPIDOGREL 75 MG TABLET GT SCH (08:53)
[2023-03-14] MEDS: SODIUM CHLORIDE 1,000 MG TABLET GT SCH ×3 (08:53→17:11)
[2023-03-14] MEDS: LOSARTAN POTASSIUM 25 MG TABLET GT SCH (08:53)
[2023-03-14] MEDS: HYDROGEN PEROXIDE 3% 118 ML BOTTLE TP SCH ×2 (08:57→19:33)
[2023-03-14] MEDS: diphenhydrAMINE 25 MG/10 ML UDC GT PRN (09:00)
[2023-03-14] MEDS: VITAL AF 1.2 1,000 ML LIQUID GT PRN (13:05)
[2023-03-14] MEDS: ATORVASTATIN 20 MG TABLET GT SCH (21:30)
[2023-03-14] MEDS: NUTRISOURCE FIBER 4 GM PACKET GT SCH (21:31)
[2023-03-15] VITALS (10 sets, daily range): TEMP 98.1–98.3; O2SAT 97–99
[2023-03-15] MEDS: ALBUTEROL SULFATE 2.5 MG/3 ML NEBU NEB SCH ×4 (01:44→19:20)
[2023-03-15] MEDS: BACLOFEN 10 MG TABLET GT SCH ×3 (05:47→21:00)
[2023-03-15] MEDS: OMEPRAZOLE 20 MG CAPSULE.DR GT SCH ×2 (05:47→17:08)
[2023-03-15] MEDS: HYDROGEN PEROXIDE 3% 118 ML BOTTLE TP SCH ×2 (08:03→19:20)
[2023-03-15] MEDS: METOPROLOL TARTRATE 25 MG TABLET GT SCH ×2 (09:00→20:48)
[2023-03-15] MEDS: ACIDOPHILUS/BULGARICUS CHEW TAB GT SCH ×2 (09:32→20:46)
[2023-03-15] MEDS: LOSARTAN POTASSIUM 25 MG TABLET GT SCH (09:32)
[2023-03-15] MEDS: ASPIRIN 81 MG TAB.CHEW GT SCH (09:32)
[2023-03-15] MEDS: SODIUM CHLORIDE 1,000 MG TABLET GT SCH ×3 (09:34→16:52)
[2023-03-15] MEDS: CLOPIDOGREL 75 MG TABLET GT SCH (09:34)
[2023-03-15] MEDS: VITAMINS A AND D 5 GM UD PKT TP SCH ×2 (09:35→20:49)
[2023-03-15] MEDS: REMEDY ESSENTIAL ZINC PASTE 113 GM TP SCH ×2 (09:35→20:49)
[2023-03-15] MEDS: VITAL AF 1.2 1,000 ML LIQUID GT PRN (10:03)
[2023-03-15] MEDS: ATORVASTATIN 20 MG TABLET GT SCH (20:46)
[2023-03-15] MEDS: NUTRISOURCE FIBER 4 GM PACKET GT SCH (20:48)
[2023-03-15] MEDS: MULTIVIT, IRON, MIN NO. 8, FA TABLET GT SCH (20:49)
[2023-03-16] VITALS (10 sets, daily range): TEMP 98–98.3; O2SAT 98–99
[2023-03-16] MEDS: ALBUTEROL SULFATE 2.5 MG/3 ML NEBU NEB SCH ×4 (01:07→19:05)
[2023-03-16] MEDS: VITAL AF 1.2 1,000 ML LIQUID GT PRN (04:03)
[2023-03-16] MEDS: OMEPRAZOLE 20 MG CAPSULE.DR GT SCH ×2 (06:12→18:20)
[2023-03-16] MEDS: BACLOFEN 10 MG TABLET GT SCH ×3 (06:12→22:17)
[2023-03-16] MEDS: HYDROGEN PEROXIDE 3% 118 ML BOTTLE TP SCH ×2 (08:39→19:05)
[2023-03-16] MEDS: ASPIRIN 81 MG TAB.CHEW GT SCH (08:41)
[2023-03-16] MEDS: ACIDOPHILUS/BULGARICUS CHEW TAB GT SCH ×2 (08:49→20:27)
[2023-03-16] MEDS: LOSARTAN POTASSIUM 25 MG TABLET GT SCH (08:49)
[2023-03-16] MEDS: METOPROLOL TARTRATE 25 MG TABLET GT SCH ×2 (08:50→20:27)
[2023-03-16] MEDS: SODIUM CHLORIDE 1,000 MG TABLET GT SCH ×3 (08:52→17:00)
[2023-03-16] MEDS: REMEDY ESSENTIAL ZINC PASTE 113 GM TP SCH ×2 (08:52→20:28)
[2023-03-16] MEDS: CLOPIDOGREL 75 MG TABLET GT SCH (08:52)
[2023-03-16] MEDS: VITAMINS A AND D 5 GM UD PKT TP SCH ×2 (08:55→20:29)
[2023-03-16] MEDS: NUTRISOURCE FIBER 4 GM PACKET GT SCH (20:27)
[2023-03-16] MEDS: ATORVASTATIN 20 MG TABLET GT SCH (20:27)
[2023-03-17] VITALS (10 sets, daily range): TEMP 98.1–98.8; O2SAT 98–99
[2023-03-17] MEDS: ALBUTEROL SULFATE 2.5 MG/3 ML NEBU NEB SCH ×4 (01:34→19:10)
[2023-03-17] MEDS: VITAL AF 1.2 1,000 ML LIQUID GT PRN (03:38)
[2023-03-17] MEDS: BACLOFEN 10 MG TABLET GT SCH ×3 (05:44→22:00)
[2023-03-17] MEDS: OMEPRAZOLE 20 MG CAPSULE.DR GT SCH ×2 (05:44→17:25)
[2023-03-17] MEDS: HYDROGEN PEROXIDE 3% 118 ML BOTTLE TP SCH ×2 (07:52→19:10)
[2023-03-17] MEDS: ASPIRIN 81 MG TAB.CHEW GT SCH (08:41)
[2023-03-17] MEDS: ACIDOPHILUS/BULGARICUS CHEW TAB GT SCH ×2 (08:43→21:00)
[2023-03-17] MEDS: METOPROLOL TARTRATE 25 MG TABLET GT SCH ×2 (08:48→21:00)
[2023-03-17] MEDS: SODIUM CHLORIDE 1,000 MG TABLET GT SCH ×3 (08:49→17:25)
[2023-03-17] MEDS: CLOPIDOGREL 75 MG TABLET GT SCH (08:49)
[2023-03-17] MEDS: VITAMINS A AND D 5 GM UD PKT TP SCH ×2 (08:50→21:00)
[2023-03-17] MEDS: LOSARTAN POTASSIUM 25 MG TABLET GT SCH (08:50)
[2023-03-17] MEDS: REMEDY ESSENTIAL ZINC PASTE 113 GM TP SCH ×2 (08:50→21:00)
[2023-03-17] MEDS: ACETAMINOPHEN 650 MG/20 ML UDC- SA PATIENTS-PAIN ONLY GT PRN (08:53)
[2023-03-17] MEDS: diphenhydrAMINE 25 MG/10 ML UDC GT PRN (13:20)
[2023-03-17] MEDS: NUTRISOURCE FIBER 4 GM PACKET GT SCH (21:00)
[2023-03-17] MEDS: ATORVASTATIN 20 MG TABLET GT SCH (21:00)
[2023-03-17] MEDS: MULTIVIT, IRON, MIN NO. 8, FA TABLET GT SCH (21:00)
[2023-03-18] VITALS (10 sets, daily range): TEMP 97.7–98; O2SAT 98–99
[2023-03-18] MEDS: ALBUTEROL SULFATE 2.5 MG/3 ML NEBU NEB SCH ×4 (01:12→19:19)
[2023-03-18] MEDS: BACLOFEN 10 MG TABLET GT SCH ×3 (06:00→22:07)
[2023-03-18] MEDS: OMEPRAZOLE 20 MG CAPSULE.DR GT SCH ×2 (06:00→17:36)
[2023-03-18] MEDS: HYDROGEN PEROXIDE 3% 118 ML BOTTLE TP SCH ×2 (07:25→19:19)
[2023-03-18] MEDS: ASPIRIN 81 MG TAB.CHEW GT SCH (09:12)
[2023-03-18] MEDS: ACIDOPHILUS/BULGARICUS CHEW TAB GT SCH ×2 (09:12→20:20)
[2023-03-18] MEDS: LOSARTAN POTASSIUM 25 MG TABLET GT SCH (09:22)
[2023-03-18] MEDS: SODIUM CHLORIDE 1,000 MG TABLET GT SCH ×3 (09:23→17:36)
[2023-03-18] MEDS: REMEDY ESSENTIAL ZINC PASTE 113 GM TP SCH ×2 (09:23→20:23)
[2023-03-18] MEDS: VITAMINS A AND D 5 GM UD PKT TP SCH ×2 (09:23→20:23)
[2023-03-18] MEDS: METOPROLOL TARTRATE 25 MG TABLET GT SCH ×2 (09:23→20:22)
[2023-03-18] MEDS: CLOPIDOGREL 75 MG TABLET GT SCH (09:23)
[2023-03-18] MEDS: ATORVASTATIN 20 MG TABLET GT SCH (20:20)
[2023-03-18] MEDS: NUTRISOURCE FIBER 4 GM PACKET GT SCH (20:23)
[2023-03-19] VITALS (10 sets, daily range): TEMP 97.5–98.2; O2SAT 98–99
[2023-03-19] MEDS: VITAL AF 1.2 1,000 ML LIQUID GT PRN (00:16)
[2023-03-19] MEDS: ALBUTEROL SULFATE 2.5 MG/3 ML NEBU NEB SCH ×4 (00:51→19:37)
[2023-03-19] MEDS: BACLOFEN 10 MG TABLET GT SCH ×3 (05:16→22:00)
[2023-03-19] MEDS: OMEPRAZOLE 20 MG CAPSULE.DR GT SCH ×2 (05:17→17:10)
[2023-03-19] MEDS: HYDROGEN PEROXIDE 3% 118 ML BOTTLE TP SCH ×2 (07:32→19:37)
[2023-03-19] MEDS: VITAMINS A AND D 5 GM UD PKT TP SCH ×2 (08:41→20:20)
[2023-03-19] MEDS: CLOPIDOGREL 75 MG TABLET GT SCH (08:41)
[2023-03-19] MEDS: ACIDOPHILUS/BULGARICUS CHEW TAB GT SCH ×2 (08:41→20:12)
[2023-03-19] MEDS: ASPIRIN 81 MG TAB.CHEW GT SCH (08:41)
[2023-03-19] MEDS: REMEDY ESSENTIAL ZINC PASTE 113 GM TP SCH ×2 (08:41→20:20)
[2023-03-19] MEDS: LOSARTAN POTASSIUM 25 MG TABLET GT SCH (08:41)
[2023-03-19] MEDS: SODIUM CHLORIDE 1,000 MG TABLET GT SCH ×3 (08:41→17:10)
[2023-03-19] MEDS: METOPROLOL TARTRATE 25 MG TABLET GT SCH ×2 (08:41→20:18)
[2023-03-19] MEDS: ATORVASTATIN 20 MG TABLET GT SCH (20:17)
[2023-03-19] MEDS: NUTRISOURCE FIBER 4 GM PACKET GT SCH (20:18)
[2023-03-19] MEDS: MULTIVIT, IRON, MIN NO. 8, FA TABLET GT SCH (20:19)
[2023-03-20] VITALS (10 sets, daily range): TEMP 97.8–98.6; O2SAT 98–99
[2023-03-20] MEDS: ALBUTEROL SULFATE 2.5 MG/3 ML NEBU NEB SCH ×4 (00:57→19:36)
[2023-03-20] MEDS: BACLOFEN 10 MG TABLET GT SCH ×3 (05:39→21:23)
[2023-03-20] MEDS: OMEPRAZOLE 20 MG CAPSULE.DR GT SCH ×2 (05:39→17:29)
[2023-03-20] MEDS: HYDROGEN PEROXIDE 3% 118 ML BOTTLE TP SCH ×2 (07:46→19:36)
[2023-03-20] MEDS: ASPIRIN 81 MG TAB.CHEW GT SCH (09:12)
[2023-03-20] MEDS: ACIDOPHILUS/BULGARICUS CHEW TAB GT SCH ×2 (09:12→21:22)
[2023-03-20] MEDS: VITAMINS A AND D 5 GM UD PKT TP SCH ×2 (09:13→21:23)
[2023-03-20] MEDS: REMEDY ESSENTIAL ZINC PASTE 113 GM TP SCH ×2 (09:13→21:23)
[2023-03-20] MEDS: LOSARTAN POTASSIUM 25 MG TABLET GT SCH (09:16)
[2023-03-20] MEDS: METOPROLOL TARTRATE 25 MG TABLET GT SCH ×2 (09:17→21:00)
[2023-03-20] MEDS: SODIUM CHLORIDE 1,000 MG TABLET GT SCH ×3 (09:17→17:29)
[2023-03-20] MEDS: CLOPIDOGREL 75 MG TABLET GT SCH (09:19)
[2023-03-20] MEDS: VITAL AF 1.2 1,000 ML LIQUID GT PRN (14:31)
[2023-03-20] MEDS: ATORVASTATIN 20 MG TABLET GT SCH (21:22)
[2023-03-20] MEDS: NUTRISOURCE FIBER 4 GM PACKET GT SCH (21:23)
[2023-03-21] VITALS (10 sets, daily range): TEMP 97.7–98.4; O2SAT 96–99
[2023-03-21] MEDS: ALBUTEROL SULFATE 2.5 MG/3 ML NEBU NEB SCH ×4 (01:05→19:13)
[2023-03-21] MEDS: OMEPRAZOLE 20 MG CAPSULE.DR GT SCH ×2 (05:17→18:38)
[2023-03-21] MEDS: BACLOFEN 10 MG TABLET GT SCH ×3 (05:17→22:00)
[2023-03-21] MEDS: REMEDY ESSENTIAL ZINC PASTE 113 GM TP SCH ×2 (09:00→21:45)
[2023-03-21] MEDS: VITAMINS A AND D 5 GM UD PKT TP SCH ×2 (09:00→21:45)
[2023-03-21] MEDS: HYDROGEN PEROXIDE 3% 118 ML BOTTLE TP SCH ×2 (09:29→19:13)
[2023-03-21] MEDS: LOSARTAN POTASSIUM 25 MG TABLET GT SCH (09:45)
[2023-03-21] MEDS: ASPIRIN 81 MG TAB.CHEW GT SCH (09:45)
[2023-03-21] MEDS: ACIDOPHILUS/BULGARICUS CHEW TAB GT SCH ×2 (09:45→21:50)
[2023-03-21] MEDS: METOPROLOL TARTRATE 25 MG TABLET GT SCH ×2 (09:45→21:50)
[2023-03-21] MEDS: SODIUM CHLORIDE 1,000 MG TABLET GT SCH ×3 (10:19→18:10)
[2023-03-21] MEDS: CLOPIDOGREL 75 MG TABLET GT SCH (10:19)
[2023-03-21] MEDS: VITAL AF 1.2 1,000 ML LIQUID GT PRN (13:25)
[2023-03-21] MEDS: NUTRISOURCE FIBER 4 GM PACKET GT SCH (21:45)
[2023-03-21] MEDS: MULTIVIT, IRON, MIN NO. 8, FA TABLET GT SCH (21:45)
[2023-03-21] MEDS: ATORVASTATIN 20 MG TABLET GT SCH (21:50)
[2023-03-22] VITALS (11 sets, daily range): TEMP 97.5–98.7; O2SAT 97–99
[2023-03-22] MEDS: ALBUTEROL SULFATE 2.5 MG/3 ML NEBU NEB SCH ×4 (01:37→19:11)
[2023-03-22] MEDS: BACLOFEN 10 MG TABLET GT SCH ×3 (05:25→21:37)
[2023-03-22] MEDS: OMEPRAZOLE 20 MG CAPSULE.DR GT SCH ×2 (05:25→17:03)
[2023-03-22 06:18] LABS: BASOPHILS % (AUTO) 0.3 % (0.0-2.0); EOSINOPHILS # (AUTO) 0.4 K/uL (0.0-0.7); EOSINOPHILS % (AUTO) 6.9 % (0.0-7.0); HEMATOCRIT 34.8 % (36.7-47.1); HEMOGLOBIN 12.3 g/dL (12.5-16.3); LYMPHOCYTES # (AUTO) 1.2 K/uL (0.8-4.8); LYMPHOCYTES % (AUTO) 18.4 % (20.5-51.5); MEAN CORPUSCULAR HEMOGLOBIN 32.8 uug (23.8-33.4); MEAN CORPUSCULAR HGB CONC 35 g/dL (32.5-36.3); MEAN CORPUSCULAR VOLUME 92.4 fL (73.0-96.2); MONOCYTES # (AUTO) 0.4 K/uL (0.1-1.30); MONOCYTES % (AUTO) 6.3 % (0.0-11.0); NEUTROPHILS # (AUTO) 4.3 K/uL (1.8-8.9); NEUTROPHILS % (AUTO) 68.1 % (38.5-71.5); PLATELET COUNT (AUTO) 232 K/uL (152-348); RED BLOOD CELL COUNT(AUTO) 3.76 MIL/uL (4.06-5.63); RED CELL DISTRIBUTION WIDTH 12.9 % (12.1-16.2); WHITE BLOOD COUNT (AUTO) 6.3 K/uL (3.6-10.2)
[2023-03-22 06:55] LABS: DIFFERENTIAL COMMENT 1
[2023-03-22 06:59] LABS: CALCIUM 8.7 mg/dL (8.5-10.1); CARBON DIOXIDE 28 mmol/L (21-32); CHLORIDE 104 mmol/L (98-107); CREATININE 0.7 mg/dL (0.6-1.3); GLUCOSE 112 mg/dL (74-106); PHOSPHOROUS 2.9 mg/dL (2.5-4.9); SODIUM SERUM 138 mmol/L (136-145); UREA NITROGEN, BLOOD 32 mg/dL (7-18)
[2023-03-22] MEDS: diphenhydrAMINE 25 MG/10 ML UDC GT PRN ×2 (07:43→17:02)
[2023-03-22] MEDS: SODIUM CHLORIDE 1,000 MG TABLET GT SCH ×3 (08:09→16:49)
[2023-03-22] MEDS: METOPROLOL TARTRATE 25 MG TABLET GT SCH ×2 (08:09→21:36)
[2023-03-22] MEDS: CLOPIDOGREL 75 MG TABLET GT SCH (08:09)
[2023-03-22] MEDS: LOSARTAN POTASSIUM 25 MG TABLET GT SCH (08:09)
[2023-03-22] MEDS: ACIDOPHILUS/BULGARICUS CHEW TAB GT SCH ×2 (08:10→21:36)
[2023-03-22] MEDS: ASPIRIN 81 MG TAB.CHEW GT SCH (08:10)
[2023-03-22] MEDS: HYDROGEN PEROXIDE 3% 118 ML BOTTLE TP SCH ×2 (08:11→19:11)
[2023-03-22] MEDS: REMEDY ESSENTIAL ZINC PASTE 113 GM TP SCH ×2 (08:11→21:37)
[2023-03-22] MEDS: VITAMINS A AND D 5 GM UD PKT TP SCH ×2 (08:12→21:37)
[2023-03-22] MEDS: ATORVASTATIN 20 MG TABLET GT SCH (21:36)
[2023-03-22] MEDS: NUTRISOURCE FIBER 4 GM PACKET GT SCH (21:36)
[2023-03-23] VITALS (12 sets, daily range): BP systolic 167; BP diastolic 78; TEMP 97.7–98.2; O2SAT 97–99
[2023-03-23] MEDS: diphenhydrAMINE 25 MG/10 ML UDC GT PRN (00:34)
[2023-03-23] MEDS: ALBUTEROL SULFATE 2.5 MG/3 ML NEBU NEB SCH ×4 (01:11→20:59)
[2023-03-23] MEDS: VITAL AF 1.2 1,000 ML LIQUID GT PRN (03:29)
[2023-03-23] MEDS: BACLOFEN 10 MG TABLET GT SCH ×3 (06:00→21:41)
[2023-03-23] MEDS: OMEPRAZOLE 20 MG CAPSULE.DR GT SCH ×2 (06:37→18:16)
[2023-03-23] MEDS: SODIUM CHLORIDE 1,000 MG TABLET GT SCH ×3 (09:00→17:00)
[2023-03-23] MEDS: ACIDOPHILUS/BULGARICUS CHEW TAB GT SCH ×2 (09:00→21:38)
[2023-03-23] MEDS: HYDROGEN PEROXIDE 3% 118 ML BOTTLE TP SCH ×2 (09:00→21:05)
[2023-03-23] MEDS: REMEDY ESSENTIAL ZINC PASTE 113 GM TP SCH ×2 (09:00→21:41)
[2023-03-23] MEDS: ASPIRIN 81 MG TAB.CHEW GT SCH (09:00)
[2023-03-23] MEDS: METOPROLOL TARTRATE 25 MG TABLET GT SCH ×2 (09:00→21:54)
[2023-03-23] MEDS: VITAMINS A AND D 5 GM UD PKT TP SCH ×2 (09:00→21:41)
[2023-03-23] MEDS: CLOPIDOGREL 75 MG TABLET GT SCH (11:18)
[2023-03-23] MEDS: LOSARTAN POTASSIUM 25 MG TABLET GT SCH (11:19)
[2023-03-23] MEDS: NUTRISOURCE FIBER 4 GM PACKET GT SCH (21:39)
[2023-03-23] MEDS: ATORVASTATIN 20 MG TABLET GT SCH (21:51)
[2023-03-23] MEDS: MULTIVIT, IRON, MIN NO. 8, FA TABLET GT SCH (21:54)
[2023-03-24] VITALS (12 sets, daily range): TEMP 96–97.4; O2SAT 97–99
[2023-03-24] MEDS: ALBUTEROL SULFATE 2.5 MG/3 ML NEBU NEB SCH ×4 (04:16→19:11)
[2023-03-24] MEDS: BACLOFEN 10 MG TABLET GT SCH ×3 (06:49→22:08)
[2023-03-24] MEDS: OMEPRAZOLE 20 MG CAPSULE.DR GT SCH ×2 (06:51→17:00)
[2023-03-24] MEDS: HYDROGEN PEROXIDE 3% 118 ML BOTTLE TP SCH ×2 (07:29→19:11)
[2023-03-24] MEDS: METOPROLOL TARTRATE 25 MG TABLET GT SCH ×2 (09:00→21:00)
[2023-03-24] MEDS: ASPIRIN 81 MG TAB.CHEW GT SCH (09:54)
[2023-03-24] MEDS: VITAMINS A AND D 5 GM UD PKT TP SCH ×2 (09:58→21:00)
[2023-03-24] MEDS: REMEDY ESSENTIAL ZINC PASTE 113 GM TP SCH ×2 (09:58→21:00)
[2023-03-24] MEDS: LOSARTAN POTASSIUM 25 MG TABLET GT SCH (09:58)
[2023-03-24] MEDS: CLOPIDOGREL 75 MG TABLET GT SCH (09:58)
[2023-03-24] MEDS: SODIUM CHLORIDE 1,000 MG TABLET GT SCH ×3 (09:58→16:45)
[2023-03-24] MEDS: ACIDOPHILUS/BULGARICUS CHEW TAB GT SCH ×2 (09:59→21:00)
[2023-03-24] MEDS: VITAL AF 1.2 1,000 ML LIQUID GT PRN (13:52)
[2023-03-24] MEDS: diphenhydrAMINE 25 MG/10 ML UDC GT PRN (13:59)
[2023-03-24] MEDS: ATORVASTATIN 20 MG TABLET GT SCH (21:00)
[2023-03-24] MEDS: NUTRISOURCE FIBER 4 GM PACKET GT SCH (21:00)
[2023-03-25] VITALS (12 sets, daily range): TEMP 98.4–98.9; O2SAT 97–99
[2023-03-25] MEDS: ALBUTEROL SULFATE 2.5 MG/3 ML NEBU NEB SCH ×4 (01:33→19:08)
[2023-03-25] MEDS: BACLOFEN 10 MG TABLET GT SCH ×3 (06:11→22:44)
[2023-03-25] MEDS: OMEPRAZOLE 20 MG CAPSULE.DR GT SCH ×2 (06:11→16:57)
[2023-03-25] MEDS: ASPIRIN 81 MG TAB.CHEW GT SCH (08:07)
[2023-03-25] MEDS: ACIDOPHILUS/BULGARICUS CHEW TAB GT SCH ×2 (08:07→21:00)
[2023-03-25] MEDS: VITAMINS A AND D 5 GM UD PKT TP SCH ×2 (08:08→21:00)
[2023-03-25] MEDS: REMEDY ESSENTIAL ZINC PASTE 113 GM TP SCH ×2 (08:08→21:00)
[2023-03-25] MEDS: METOPROLOL TARTRATE 25 MG TABLET GT SCH ×2 (08:14→21:00)
[2023-03-25] MEDS: CLOPIDOGREL 75 MG TABLET GT SCH (08:37)
[2023-03-25] MEDS: SODIUM CHLORIDE 1,000 MG TABLET GT SCH ×3 (08:37→16:57)
[2023-03-25] MEDS: LOSARTAN POTASSIUM 25 MG TABLET GT SCH (08:37)
[2023-03-25] MEDS: HYDROGEN PEROXIDE 3% 118 ML BOTTLE TP SCH ×2 (09:00→19:28)
[2023-03-25] MEDS: diphenhydrAMINE 25 MG/10 ML UDC GT PRN (13:30)
[2023-03-25] MEDS: VITAL AF 1.2 1,000 ML LIQUID GT PRN (13:31)
[2023-03-25] MEDS: ATORVASTATIN 20 MG TABLET GT SCH (21:00)
[2023-03-25] MEDS: MULTIVIT, IRON, MIN NO. 8, FA TABLET GT SCH (21:00)
[2023-03-25] MEDS: NUTRISOURCE FIBER 4 GM PACKET GT SCH (21:00)
[2023-03-26] VITALS (11 sets, daily range): TEMP 97.6–98.6; O2SAT 97–99
[2023-03-26] MEDS: ALBUTEROL SULFATE 2.5 MG/3 ML NEBU NEB SCH ×4 (01:48→19:12)
[2023-03-26] MEDS: BACLOFEN 10 MG TABLET GT SCH ×3 (05:30→21:04)
[2023-03-26] MEDS: OMEPRAZOLE 20 MG CAPSULE.DR GT SCH ×2 (05:30→17:29)
[2023-03-26] MEDS: HYDROGEN PEROXIDE 3% 118 ML BOTTLE TP SCH ×2 (08:51→19:12)
[2023-03-26] MEDS: REMEDY ESSENTIAL ZINC PASTE 113 GM TP SCH ×2 (09:00→20:48)
[2023-03-26] MEDS: VITAMINS A AND D 5 GM UD PKT TP SCH ×2 (09:00→20:48)
[2023-03-26] MEDS: ACIDOPHILUS/BULGARICUS CHEW TAB GT SCH ×2 (09:00→20:39)
[2023-03-26] MEDS: CLOPIDOGREL 75 MG TABLET GT SCH (09:00)
[2023-03-26] MEDS: METOPROLOL TARTRATE 25 MG TABLET GT SCH ×2 (09:00→20:48)
[2023-03-26] MEDS: SODIUM CHLORIDE 1,000 MG TABLET GT SCH ×3 (09:00→17:29)
[2023-03-26] MEDS: ASPIRIN 81 MG TAB.CHEW GT SCH (09:59)
[2023-03-26] MEDS: LOSARTAN POTASSIUM 25 MG TABLET GT SCH (10:00)
[2023-03-26] MEDS: VITAL AF 1.2 1,000 ML LIQUID GT PRN (10:06)
[2023-03-26] MEDS: ATORVASTATIN 20 MG TABLET GT SCH (20:45)
[2023-03-26] MEDS: NUTRISOURCE FIBER 4 GM PACKET GT SCH (20:48)
[2023-03-27] VITALS (10 sets, daily range): TEMP 98–98.2; O2SAT 97–99
[2023-03-27] MEDS: ALBUTEROL SULFATE 2.5 MG/3 ML NEBU NEB SCH ×4 (01:30→19:20)
[2023-03-27] MEDS: BACLOFEN 10 MG TABLET GT SCH ×3 (05:02→22:00)
[2023-03-27] MEDS: OMEPRAZOLE 20 MG CAPSULE.DR GT SCH ×2 (05:02→17:41)
[2023-03-27] MEDS: VITAL AF 1.2 1,000 ML LIQUID GT PRN (05:03)
[2023-03-27] MEDS: HYDROGEN PEROXIDE 3% 118 ML BOTTLE TP SCH ×2 (08:17→19:20)
[2023-03-27] MEDS: ASPIRIN 81 MG TAB.CHEW GT SCH (09:33)
[2023-03-27] MEDS: ACIDOPHILUS/BULGARICUS CHEW TAB GT SCH ×2 (09:34→20:40)
[2023-03-27] MEDS: LOSARTAN POTASSIUM 25 MG TABLET GT SCH (09:34)
[2023-03-27] MEDS: METOPROLOL TARTRATE 25 MG TABLET GT SCH ×2 (09:35→20:42)
[2023-03-27] MEDS: CLOPIDOGREL 75 MG TABLET GT SCH (09:43)
[2023-03-27] MEDS: SODIUM CHLORIDE 1,000 MG TABLET GT SCH ×3 (09:43→17:38)
[2023-03-27] MEDS: REMEDY ESSENTIAL ZINC PASTE 113 GM TP SCH ×2 (09:48→20:41)
[2023-03-27] MEDS: VITAMINS A AND D 5 GM UD PKT TP SCH ×2 (09:48→20:41)
[2023-03-27] MEDS: NUTRISOURCE FIBER 4 GM PACKET GT SCH (20:40)
[2023-03-27] MEDS: MULTIVIT, IRON, MIN NO. 8, FA TABLET GT SCH (20:41)
[2023-03-27] MEDS: ATORVASTATIN 20 MG TABLET GT SCH (20:46)
[2023-03-28] VITALS (11 sets, daily range): TEMP 97.2; O2SAT 96–99
[2023-03-28] MEDS: ALBUTEROL SULFATE 2.5 MG/3 ML NEBU NEB SCH ×4 (01:22→19:12)
[2023-03-28] MEDS: BACLOFEN 10 MG TABLET GT SCH ×3 (05:16→22:04)
[2023-03-28] MEDS: OMEPRAZOLE 20 MG CAPSULE.DR GT SCH ×2 (05:16→17:27)
[2023-03-28] MEDS: VITAL AF 1.2 1,000 ML LIQUID GT PRN (05:17)
[2023-03-28] MEDS: HYDROGEN PEROXIDE 3% 118 ML BOTTLE TP SCH ×2 (07:11→19:12)
[2023-03-28] MEDS: ASPIRIN 81 MG TAB.CHEW GT SCH (09:05)
[2023-03-28] MEDS: ACIDOPHILUS/BULGARICUS CHEW TAB GT SCH ×2 (09:06→21:00)
[2023-03-28] MEDS: LOSARTAN POTASSIUM 25 MG TABLET GT SCH (09:06)
[2023-03-28] MEDS: VITAMINS A AND D 5 GM UD PKT TP SCH ×2 (09:08→21:00)
[2023-03-28] MEDS: METOPROLOL TARTRATE 25 MG TABLET GT SCH ×2 (09:08→21:00)
[2023-03-28] MEDS: SODIUM CHLORIDE 1,000 MG TABLET GT SCH ×3 (09:08→17:25)
[2023-03-28] MEDS: REMEDY ESSENTIAL ZINC PASTE 113 GM TP SCH ×2 (09:08→21:00)
[2023-03-28] MEDS: CLOPIDOGREL 75 MG TABLET GT SCH (09:08)
[2023-03-28] MEDS: NUTRISOURCE FIBER 4 GM PACKET GT SCH (21:00)
[2023-03-28] MEDS: ATORVASTATIN 20 MG TABLET GT SCH (21:00)
[2023-03-29] VITALS (11 sets, daily range): TEMP 97.6–97.9; O2SAT 98–99
[2023-03-29] MEDS: ALBUTEROL SULFATE 2.5 MG/3 ML NEBU NEB SCH ×4 (01:30→21:03)
[2023-03-29] MEDS: OMEPRAZOLE 20 MG CAPSULE.DR GT SCH ×2 (05:38→17:20)
[2023-03-29] MEDS: BACLOFEN 10 MG TABLET GT SCH ×3 (05:38→21:10)
[2023-03-29] MEDS: VITAL AF 1.2 1,000 ML LIQUID GT PRN (05:38)
[2023-03-29] MEDS: HYDROGEN PEROXIDE 3% 118 ML BOTTLE TP SCH ×2 (07:50→21:03)
[2023-03-29] MEDS: LOSARTAN POTASSIUM 25 MG TABLET GT SCH (09:55)
[2023-03-29] MEDS: ASPIRIN 81 MG TAB.CHEW GT SCH (09:55)
[2023-03-29] MEDS: ACIDOPHILUS/BULGARICUS CHEW TAB GT SCH ×2 (09:55→21:09)
[2023-03-29] MEDS: SODIUM CHLORIDE 1,000 MG TABLET GT SCH ×3 (09:56→17:20)
[2023-03-29] MEDS: VITAMINS A AND D 5 GM UD PKT TP SCH ×2 (09:56→21:10)
[2023-03-29] MEDS: CLOPIDOGREL 75 MG TABLET GT SCH (09:56)
[2023-03-29] MEDS: METOPROLOL TARTRATE 25 MG TABLET GT SCH ×2 (09:56→21:10)
[2023-03-29] MEDS: REMEDY ESSENTIAL ZINC PASTE 113 GM TP SCH ×2 (09:56→21:10)
[2023-03-29] MEDS: NUTRISOURCE FIBER 4 GM PACKET GT SCH (21:10)
[2023-03-29] MEDS: ATORVASTATIN 20 MG TABLET GT SCH (21:10)
[2023-03-29] MEDS: MULTIVIT, IRON, MIN NO. 8, FA TABLET GT SCH (21:11)
[2023-03-30] VITALS (11 sets, daily range): TEMP 97.8–98.7; O2SAT 98–99
[2023-03-30] MEDS: ALBUTEROL SULFATE 2.5 MG/3 ML NEBU NEB SCH ×4 (02:17→19:17)
[2023-03-30] MEDS: BACLOFEN 10 MG TABLET GT SCH ×3 (05:21→22:23)
[2023-03-30] MEDS: OMEPRAZOLE 20 MG CAPSULE.DR GT SCH ×2 (05:21→17:13)
[2023-03-30] MEDS: VITAL AF 1.2 1,000 ML LIQUID GT PRN (05:21)
[2023-03-30] MEDS: HYDROGEN PEROXIDE 3% 118 ML BOTTLE TP SCH ×2 (08:10→19:17)
[2023-03-30] MEDS: ACIDOPHILUS/BULGARICUS CHEW TAB GT SCH ×2 (09:00→20:19)
[2023-03-30] MEDS: SODIUM CHLORIDE 1,000 MG TABLET GT SCH ×3 (09:00→17:13)
[2023-03-30] MEDS: REMEDY ESSENTIAL ZINC PASTE 113 GM TP SCH ×2 (09:00→20:19)
[2023-03-30] MEDS: VITAMINS A AND D 5 GM UD PKT TP SCH ×2 (09:00→20:19)
[2023-03-30] MEDS: METOPROLOL TARTRATE 25 MG TABLET GT SCH ×2 (09:00→20:19)
[2023-03-30] MEDS: ASPIRIN 81 MG TAB.CHEW GT SCH (09:00)
[2023-03-30] MEDS: CLOPIDOGREL 75 MG TABLET GT SCH (09:00)
[2023-03-30] MEDS: LOSARTAN POTASSIUM 25 MG TABLET GT SCH (09:00)
[2023-03-30] MEDS: NUTRISOURCE FIBER 4 GM PACKET GT SCH (20:19)
[2023-03-30] MEDS: ATORVASTATIN 20 MG TABLET GT SCH (20:19)
[2023-03-31] VITALS (11 sets, daily range): TEMP 96.8–97.6; O2SAT 98–99
[2023-03-31] MEDS: ALBUTEROL SULFATE 2.5 MG/3 ML NEBU NEB SCH ×4 (01:37→19:30)
[2023-03-31] MEDS: BACLOFEN 10 MG TABLET GT SCH ×3 (06:01→21:25)
[2023-03-31] MEDS: VITAL AF 1.2 1,000 ML LIQUID GT PRN (06:01)
[2023-03-31] MEDS: OMEPRAZOLE 20 MG CAPSULE.DR GT SCH ×2 (06:01→17:18)
[2023-03-31] MEDS: METOPROLOL TARTRATE 25 MG TABLET GT SCH ×2 (09:00→21:25)
[2023-03-31] MEDS: ASPIRIN 81 MG TAB.CHEW GT SCH (09:21)
[2023-03-31] MEDS: ACIDOPHILUS/BULGARICUS CHEW TAB GT SCH ×2 (09:21→21:24)
[2023-03-31] MEDS: LOSARTAN POTASSIUM 25 MG TABLET GT SCH (09:21)
[2023-03-31] MEDS: CLOPIDOGREL 75 MG TABLET GT SCH (09:22)
[2023-03-31] MEDS: SODIUM CHLORIDE 1,000 MG TABLET GT SCH ×3 (09:22→17:18)
[2023-03-31] MEDS: REMEDY ESSENTIAL ZINC PASTE 113 GM TP SCH ×2 (09:23→21:25)
[2023-03-31] MEDS: VITAMINS A AND D 5 GM UD PKT TP SCH ×2 (09:23→21:25)
[2023-03-31] MEDS: diphenhydrAMINE 25 MG/10 ML UDC GT PRN (09:24)
[2023-03-31] MEDS: HYDROGEN PEROXIDE 3% 118 ML BOTTLE TP SCH ×2 (09:44→20:52)
[2023-03-31] MEDS: ATORVASTATIN 20 MG TABLET GT SCH (21:24)
[2023-03-31] MEDS: NUTRISOURCE FIBER 4 GM PACKET GT SCH (21:25)
[2023-03-31] MEDS: MULTIVIT, IRON, MIN NO. 8, FA TABLET GT SCH (21:25)
[2023-04-01] VITALS (12 sets, daily range): TEMP 97.7–98.3; O2SAT 98–99
[2023-04-01] MEDS: ALBUTEROL SULFATE 2.5 MG/3 ML NEBU NEB SCH ×4 (01:37→19:26)
[2023-04-01] MEDS: VITAL AF 1.2 1,000 ML LIQUID GT PRN (03:48)
[2023-04-01] MEDS: OMEPRAZOLE 20 MG CAPSULE.DR GT SCH ×2 (05:34→17:13)
[2023-04-01] MEDS: BACLOFEN 10 MG TABLET GT SCH ×3 (05:34→21:44)
[2023-04-01] MEDS: HYDROGEN PEROXIDE 3% 118 ML BOTTLE TP SCH ×2 (07:25→21:08)
[2023-04-01] MEDS: SODIUM CHLORIDE 1,000 MG TABLET GT SCH ×3 (08:15→17:13)
[2023-04-01] MEDS: ACIDOPHILUS/BULGARICUS CHEW TAB GT SCH ×2 (08:15→21:43)
[2023-04-01] MEDS: CLOPIDOGREL 75 MG TABLET GT SCH (08:15)
[2023-04-01] MEDS: METOPROLOL TARTRATE 25 MG TABLET GT SCH ×2 (08:15→21:44)
[2023-04-01] MEDS: ASPIRIN 81 MG TAB.CHEW GT SCH (08:15)
[2023-04-01] MEDS: VITAMINS A AND D 5 GM UD PKT TP SCH ×2 (08:15→21:44)
[2023-04-01] MEDS: REMEDY ESSENTIAL ZINC PASTE 113 GM TP SCH ×2 (08:15→21:44)
[2023-04-01] MEDS: LOSARTAN POTASSIUM 25 MG TABLET GT SCH (08:15)
[2023-04-01] MEDS: ATORVASTATIN 20 MG TABLET GT SCH (21:43)
[2023-04-01] MEDS: NUTRISOURCE FIBER 4 GM PACKET GT SCH (21:44)
[2023-04-02] VITALS (12 sets, daily range): TEMP 96.6–97.4; O2SAT 98–99
[2023-04-02] MEDS: VITAL AF 1.2 1,000 ML LIQUID GT PRN (01:10)
[2023-04-02] MEDS: ALBUTEROL SULFATE 2.5 MG/3 ML NEBU NEB SCH ×4 (02:09→19:37)
[2023-04-02] MEDS: BACLOFEN 10 MG TABLET GT SCH ×3 (05:09→21:22)
[2023-04-02] MEDS: OMEPRAZOLE 20 MG CAPSULE.DR GT SCH ×2 (05:09→17:30)
[2023-04-02] MEDS: HYDROGEN PEROXIDE 3% 118 ML BOTTLE TP SCH ×2 (07:46→21:59)
[2023-04-02] MEDS: SODIUM CHLORIDE 1,000 MG TABLET GT SCH ×3 (09:00→17:30)
[2023-04-02] MEDS: LOSARTAN POTASSIUM 25 MG TABLET GT SCH (09:00)
[2023-04-02] MEDS: CLOPIDOGREL 75 MG TABLET GT SCH (09:00)
[2023-04-02] MEDS: ASPIRIN 81 MG TAB.CHEW GT SCH (09:00)
[2023-04-02] MEDS: REMEDY ESSENTIAL ZINC PASTE 113 GM TP SCH ×2 (09:00→21:22)
[2023-04-02] MEDS: VITAMINS A AND D 5 GM UD PKT TP SCH ×2 (09:00→21:22)
[2023-04-02] MEDS: ACIDOPHILUS/BULGARICUS CHEW TAB GT SCH ×2 (09:00→21:22)
[2023-04-02] MEDS: METOPROLOL TARTRATE 25 MG TABLET GT SCH ×2 (09:00→21:22)
[2023-04-02] MEDS: NUTRISOURCE FIBER 4 GM PACKET GT SCH (21:22)
[2023-04-02] MEDS: ATORVASTATIN 20 MG TABLET GT SCH (21:22)
[2023-04-02] MEDS: MULTIVIT, IRON, MIN NO. 8, FA TABLET GT SCH (21:22)
[2023-04-03] VITALS (11 sets, daily range): TEMP 97.4–97.5; O2SAT 98–99
[2023-04-03] MEDS: VITAL AF 1.2 1,000 ML LIQUID GT PRN
[2023-04-03] MEDS: ALBUTEROL SULFATE 2.5 MG/3 ML NEBU NEB SCH ×4 (01:04→19:16)
[2023-04-03] MEDS: BACLOFEN 10 MG TABLET GT SCH ×3 (05:54→21:12)
[2023-04-03] MEDS: OMEPRAZOLE 20 MG CAPSULE.DR GT SCH ×2 (06:01→17:20)
[2023-04-03] MEDS: HYDROGEN PEROXIDE 3% 118 ML BOTTLE TP SCH ×2 (07:25→21:00)
[2023-04-03] MEDS: METOPROLOL TARTRATE 25 MG TABLET GT SCH ×2 (09:00→21:00)
[2023-04-03] MEDS: ASPIRIN 81 MG TAB.CHEW GT SCH (09:07)
[2023-04-03] MEDS: ACIDOPHILUS/BULGARICUS CHEW TAB GT SCH ×2 (09:08→21:11)
[2023-04-03] MEDS: LOSARTAN POTASSIUM 25 MG TABLET GT SCH (09:08)
[2023-04-03] MEDS: SODIUM CHLORIDE 1,000 MG TABLET GT SCH ×3 (09:09→17:20)
[2023-04-03] MEDS: VITAMINS A AND D 5 GM UD PKT TP SCH ×2 (09:09→21:12)
[2023-04-03] MEDS: REMEDY ESSENTIAL ZINC PASTE 113 GM TP SCH ×2 (09:09→21:12)
[2023-04-03] MEDS: CLOPIDOGREL 75 MG TABLET GT SCH (09:09)
[2023-04-03] MEDS: ATORVASTATIN 20 MG TABLET GT SCH (21:11)
[2023-04-03] MEDS: NUTRISOURCE FIBER 4 GM PACKET GT SCH (21:12)
[2023-04-04] VITALS (10 sets, daily range): TEMP 97.6–98.3; O2SAT 99
[2023-04-04] MEDS: VITAL AF 1.2 1,000 ML LIQUID GT PRN (00:14)
[2023-04-04] MEDS: ALBUTEROL SULFATE 2.5 MG/3 ML NEBU NEB SCH ×4 (00:54→19:09)
[2023-04-04] MEDS: OMEPRAZOLE 20 MG CAPSULE.DR GT SCH ×2 (05:21→17:50)
[2023-04-04] MEDS: BACLOFEN 10 MG TABLET GT SCH ×3 (05:21→21:59)
[2023-04-04] MEDS: HYDROGEN PEROXIDE 3% 118 ML BOTTLE TP SCH ×2 (07:54→19:09)
[2023-04-04] MEDS: ASPIRIN 81 MG TAB.CHEW GT SCH (08:38)
[2023-04-04] MEDS: ACIDOPHILUS/BULGARICUS CHEW TAB GT SCH ×2 (08:39→21:58)
[2023-04-04] MEDS: METOPROLOL TARTRATE 25 MG TABLET GT SCH ×2 (08:39→21:00)
[2023-04-04] MEDS: LOSARTAN POTASSIUM 25 MG TABLET GT SCH (08:39)
[2023-04-04] MEDS: SODIUM CHLORIDE 1,000 MG TABLET GT SCH ×3 (08:43→17:50)
[2023-04-04] MEDS: CLOPIDOGREL 75 MG TABLET GT SCH (08:43)
[2023-04-04] MEDS: REMEDY ESSENTIAL ZINC PASTE 113 GM TP SCH ×2 (08:44→21:59)
[2023-04-04] MEDS: VITAMINS A AND D 5 GM UD PKT TP SCH ×2 (08:44→21:59)
[2023-04-04] MEDS: MULTIVIT, IRON, MIN NO. 8, FA TABLET GT SCH (21:59)
[2023-04-04] MEDS: NUTRISOURCE FIBER 4 GM PACKET GT SCH (21:59)
[2023-04-04] MEDS: ATORVASTATIN 20 MG TABLET GT SCH (21:59)
[2023-04-05] VITALS (10 sets, daily range): TEMP 97.8–98.3; O2SAT 98–99
[2023-04-05] MEDS: PEPTAMEN AF 1000ML BAG GT PRN (01:10)
[2023-04-05] MEDS: ALBUTEROL SULFATE 2.5 MG/3 ML NEBU NEB SCH ×4 (01:24→19:22)
[2023-04-05] MEDS: BACLOFEN 10 MG TABLET GT SCH ×3 (05:30→21:17)
[2023-04-05] MEDS: OMEPRAZOLE 20 MG CAPSULE.DR GT SCH ×2 (05:30→17:28)
[2023-04-05] MEDS: HYDROGEN PEROXIDE 3% 118 ML BOTTLE TP SCH ×2 (08:22→19:22)
[2023-04-05] MEDS: METOPROLOL TARTRATE 25 MG TABLET GT SCH ×2 (09:00→21:00)
[2023-04-05] MEDS: ASPIRIN 81 MG TAB.CHEW GT SCH (09:43)
[2023-04-05] MEDS: ACIDOPHILUS/BULGARICUS CHEW TAB GT SCH ×2 (09:43→21:15)
[2023-04-05] MEDS: LOSARTAN POTASSIUM 25 MG TABLET GT SCH (09:50)
[2023-04-05] MEDS: VITAMINS A AND D 5 GM UD PKT TP SCH ×2 (09:51→21:17)
[2023-04-05] MEDS: CLOPIDOGREL 75 MG TABLET GT SCH (09:51)
[2023-04-05] MEDS: REMEDY ESSENTIAL ZINC PASTE 113 GM TP SCH ×2 (09:51→21:17)
[2023-04-05] MEDS: SODIUM CHLORIDE 1,000 MG TABLET GT SCH ×3 (09:51→17:28)
[2023-04-05] MEDS ORDERED: COVID-19 VACC, SPIKEVAX (PHA) 50 MCG/0.5 ML VIAL IM ONE (14:00)
[2023-04-05] MEDS: diphenhydrAMINE 25 MG/10 ML UDC GT PRN (15:39)
[2023-04-05] MEDS: ACETAMINOPHEN 650 MG/20 ML UDC- SA PATIENTS-PAIN ONLY GT PRN (15:40)
[2023-04-05] MEDS: NUTRISOURCE FIBER 4 GM PACKET GT SCH (21:16)
[2023-04-05] MEDS: ATORVASTATIN 20 MG TABLET GT SCH (21:16)
[2023-04-06] VITALS (14 sets, daily range): TEMP 97.8–98.5; O2SAT 97–99
[2023-04-06] MEDS: ALBUTEROL SULFATE 2.5 MG/3 ML NEBU NEB SCH ×4 (01:31→19:12)
[2023-04-06] MEDS: OMEPRAZOLE 20 MG CAPSULE.DR GT SCH ×2 (06:09→17:46)
[2023-04-06] MEDS: BACLOFEN 10 MG TABLET GT SCH ×3 (06:09→21:37)
[2023-04-06] MEDS: ACIDOPHILUS/BULGARICUS CHEW TAB GT SCH ×2 (08:29→21:34)
[2023-04-06] MEDS: ASPIRIN 81 MG TAB.CHEW GT SCH (08:29)
[2023-04-06] MEDS: LOSARTAN POTASSIUM 25 MG TABLET GT SCH (08:29)
[2023-04-06] MEDS: SODIUM CHLORIDE 1,000 MG TABLET GT SCH ×3 (08:30→17:46)
[2023-04-06] MEDS: METOPROLOL TARTRATE 25 MG TABLET GT SCH ×2 (08:30→21:35)
[2023-04-06] MEDS: REMEDY ESSENTIAL ZINC PASTE 113 GM TP SCH ×2 (08:30→21:37)
[2023-04-06] MEDS: CLOPIDOGREL 75 MG TABLET GT SCH (08:30)
[2023-04-06] MEDS: VITAMINS A AND D 5 GM UD PKT TP SCH ×2 (08:30→21:37)
[2023-04-06] MEDS: HYDROGEN PEROXIDE 3% 118 ML BOTTLE TP SCH ×2 (09:00→21:15)
[2023-04-06] MEDS: ATORVASTATIN 20 MG TABLET GT SCH (21:34)
[2023-04-06] MEDS: NUTRISOURCE FIBER 4 GM PACKET GT SCH (21:37)
[2023-04-06] MEDS: MULTIVIT, IRON, MIN NO. 8, FA TABLET GT SCH (21:37)
[2023-04-07] VITALS (14 sets, daily range): TEMP 97.4–99.4; O2SAT 98–99
[2023-04-07] MEDS: ALBUTEROL SULFATE 2.5 MG/3 ML NEBU NEB SCH ×4 (01:00→19:07)
[2023-04-07] MEDS: BACLOFEN 10 MG TABLET GT SCH ×3 (06:06→22:40)
[2023-04-07] MEDS: OMEPRAZOLE 20 MG CAPSULE.DR GT SCH ×2 (06:07→18:29)
[2023-04-07] MEDS: HYDROGEN PEROXIDE 3% 118 ML BOTTLE TP SCH ×2 (08:12→20:54)
[2023-04-07] MEDS: ASPIRIN 81 MG TAB.CHEW GT SCH (09:41)
[2023-04-07] MEDS: LOSARTAN POTASSIUM 25 MG TABLET GT SCH (09:47)
[2023-04-07] MEDS: ACIDOPHILUS/BULGARICUS CHEW TAB GT SCH ×2 (09:50→21:50)
[2023-04-07] MEDS: METOPROLOL TARTRATE 25 MG TABLET GT SCH ×2 (09:52→21:51)
[2023-04-07] MEDS: SODIUM CHLORIDE 1,000 MG TABLET GT SCH ×3 (09:53→17:00)
[2023-04-07] MEDS: REMEDY ESSENTIAL ZINC PASTE 113 GM TP SCH ×2 (09:54→21:51)
[2023-04-07] MEDS: CLOPIDOGREL 75 MG TABLET GT SCH (09:54)
[2023-04-07] MEDS: VITAMINS A AND D 5 GM UD PKT TP SCH ×2 (09:54→21:51)
[2023-04-07] MEDS: ATORVASTATIN 20 MG TABLET GT SCH (21:50)
[2023-04-07] MEDS: NUTRISOURCE FIBER 4 GM PACKET GT SCH (21:51)
[2023-04-07] MEDS: PEPTAMEN AF 1000ML BAG GT PRN (21:51)
[2023-04-07] MEDS ORDERED: BACLOFEN 10 MG TABLET ONE (22:03)
[2023-04-08] VITALS (16 sets, daily range): TEMP 97.5–98.2; O2SAT 96–99
[2023-04-08] MEDS: ALBUTEROL SULFATE 2.5 MG/3 ML NEBU NEB SCH ×4 (00:34→19:12)
[2023-04-08] MEDS: OMEPRAZOLE 20 MG CAPSULE.DR GT SCH ×2 (05:34→18:16)
[2023-04-08] MEDS: BACLOFEN 10 MG TABLET GT SCH ×3 (05:34→21:08)
[2023-04-08] MEDS: ASPIRIN 81 MG TAB.CHEW GT SCH (08:05)
[2023-04-08] MEDS: ACIDOPHILUS/BULGARICUS CHEW TAB GT SCH ×2 (08:06→21:07)
[2023-04-08] MEDS: LOSARTAN POTASSIUM 25 MG TABLET GT SCH (08:12)
[2023-04-08] MEDS: METOPROLOL TARTRATE 25 MG TABLET GT SCH ×2 (08:14→21:00)
[2023-04-08] MEDS: SODIUM CHLORIDE 1,000 MG TABLET GT SCH ×3 (08:14→17:00)
[2023-04-08] MEDS: VITAMINS A AND D 5 GM UD PKT TP SCH ×2 (08:15→21:08)
[2023-04-08] MEDS: CLOPIDOGREL 75 MG TABLET GT SCH (08:15)
[2023-04-08] MEDS: REMEDY ESSENTIAL ZINC PASTE 113 GM TP SCH ×2 (08:15→21:08)
[2023-04-08] MEDS: HYDROGEN PEROXIDE 3% 118 ML BOTTLE TP SCH ×2 (08:34→19:12)
[2023-04-08] MEDS: ATORVASTATIN 20 MG TABLET GT SCH (21:07)
[2023-04-08] MEDS: MULTIVIT, IRON, MIN NO. 8, FA TABLET GT SCH (21:08)
[2023-04-08] MEDS: NUTRISOURCE FIBER 4 GM PACKET GT SCH (21:08)
[2023-04-09] VITALS (10 sets, daily range): TEMP 97.5–98.2; O2SAT 96–99
[2023-04-09] MEDS: ALBUTEROL SULFATE 2.5 MG/3 ML NEBU NEB SCH ×4 (01:34→19:23)
[2023-04-09] MEDS: OMEPRAZOLE 20 MG CAPSULE.DR GT SCH ×2 (05:08→17:48)
[2023-04-09] MEDS: BACLOFEN 10 MG TABLET GT SCH ×3 (05:08→22:19)
[2023-04-09] MEDS: HYDROGEN PEROXIDE 3% 118 ML BOTTLE TP SCH ×2 (07:20→19:23)
[2023-04-09] MEDS: ASPIRIN 81 MG TAB.CHEW GT SCH (08:44)
[2023-04-09] MEDS: ACIDOPHILUS/BULGARICUS CHEW TAB GT SCH ×2 (08:45→20:27)
[2023-04-09] MEDS: LOSARTAN POTASSIUM 25 MG TABLET GT SCH (08:45)
[2023-04-09] MEDS: SODIUM CHLORIDE 1,000 MG TABLET GT SCH ×3 (08:46→17:48)
[2023-04-09] MEDS: CLOPIDOGREL 75 MG TABLET GT SCH (08:46)
[2023-04-09] MEDS: REMEDY ESSENTIAL ZINC PASTE 113 GM TP SCH ×2 (08:46→20:27)
[2023-04-09] MEDS: VITAMINS A AND D 5 GM UD PKT TP SCH ×2 (08:46→20:27)
[2023-04-09] MEDS: METOPROLOL TARTRATE 25 MG TABLET GT SCH ×2 (08:46→20:27)
[2023-04-09] MEDS: PEPTAMEN AF 1000ML BAG GT PRN (18:28)
[2023-04-09] MEDS: NUTRISOURCE FIBER 4 GM PACKET GT SCH (20:27)
[2023-04-09] MEDS: ATORVASTATIN 20 MG TABLET GT SCH (20:27)
[2023-04-10] VITALS (10 sets, daily range): TEMP 97.9–98.4; O2SAT 96–99
[2023-04-10] MEDS: ALBUTEROL SULFATE 2.5 MG/3 ML NEBU NEB SCH ×4 (01:30→19:08)
[2023-04-10] MEDS: BACLOFEN 10 MG TABLET GT SCH ×3 (05:32→21:37)
[2023-04-10] MEDS: OMEPRAZOLE 20 MG CAPSULE.DR GT SCH ×2 (05:32→17:21)
[2023-04-10] MEDS: HYDROGEN PEROXIDE 3% 118 ML BOTTLE TP SCH ×2 (08:51→19:08)
[2023-04-10] MEDS: ASPIRIN 81 MG TAB.CHEW GT SCH (09:39)
[2023-04-10] MEDS: ACIDOPHILUS/BULGARICUS CHEW TAB GT SCH ×2 (09:40→21:37)
[2023-04-10] MEDS: SODIUM CHLORIDE 1,000 MG TABLET GT SCH ×3 (09:40→16:30)
[2023-04-10] MEDS: LOSARTAN POTASSIUM 25 MG TABLET GT SCH (09:40)
[2023-04-10] MEDS: METOPROLOL TARTRATE 25 MG TABLET GT SCH ×2 (09:40→21:37)
[2023-04-10] MEDS: REMEDY ESSENTIAL ZINC PASTE 113 GM TP SCH ×2 (09:41→21:37)
[2023-04-10] MEDS: CLOPIDOGREL 75 MG TABLET GT SCH (09:41)
[2023-04-10] MEDS: VITAMINS A AND D 5 GM UD PKT TP SCH ×2 (09:41→21:37)
[2023-04-10] MEDS: PEPTAMEN AF 1000ML BAG GT PRN (17:21)
[2023-04-10] MEDS: MULTIVIT, IRON, MIN NO. 8, FA TABLET GT SCH (21:37)
[2023-04-10] MEDS: NUTRISOURCE FIBER 4 GM PACKET GT SCH (21:37)
[2023-04-10] MEDS: ATORVASTATIN 20 MG TABLET GT SCH (21:37)
[2023-04-11] VITALS (10 sets, daily range): TEMP 97.3–98.3; O2SAT 97–99
[2023-04-11] MEDS: ALBUTEROL SULFATE 2.5 MG/3 ML NEBU NEB SCH ×4 (01:15→19:07)
[2023-04-11] MEDS: BACLOFEN 10 MG TABLET GT SCH ×3 (05:15→22:49)
[2023-04-11] MEDS: OMEPRAZOLE 20 MG CAPSULE.DR GT SCH ×2 (05:15→17:24)
[2023-04-11] MEDS: HYDROGEN PEROXIDE 3% 118 ML BOTTLE TP SCH ×2 (07:19→19:07)
[2023-04-11] MEDS: ASPIRIN 81 MG TAB.CHEW GT SCH (09:38)
[2023-04-11] MEDS: ACIDOPHILUS/BULGARICUS CHEW TAB GT SCH ×2 (09:38→21:00)
[2023-04-11] MEDS: CLOPIDOGREL 75 MG TABLET GT SCH (09:39)
[2023-04-11] MEDS: SODIUM CHLORIDE 1,000 MG TABLET GT SCH ×3 (09:39→17:24)
[2023-04-11] MEDS: LOSARTAN POTASSIUM 25 MG TABLET GT SCH (09:39)
[2023-04-11] MEDS: REMEDY ESSENTIAL ZINC PASTE 113 GM TP SCH ×2 (09:39→21:00)
[2023-04-11] MEDS: VITAMINS A AND D 5 GM UD PKT TP SCH ×2 (09:39→21:00)
[2023-04-11] MEDS: METOPROLOL TARTRATE 25 MG TABLET GT SCH ×2 (09:39→21:00)
[2023-04-11] MEDS: ATORVASTATIN 20 MG TABLET GT SCH (21:00)
[2023-04-11] MEDS: NUTRISOURCE FIBER 4 GM PACKET GT SCH (21:00)
[2023-04-11] MEDS: ACETAMINOPHEN 650 MG/20 ML UDC- SA PATIENTS-PAIN ONLY GT PRN (22:50)
[2023-04-12] VITALS (11 sets, daily range): TEMP 97.4–98; O2SAT 95–98
[2023-04-12] MEDS: ALBUTEROL SULFATE 2.5 MG/3 ML NEBU NEB SCH ×4 (02:02→19:13)
[2023-04-12] MEDS: BACLOFEN 10 MG TABLET GT SCH ×3 (06:27→21:07)
[2023-04-12] MEDS: OMEPRAZOLE 20 MG CAPSULE.DR GT SCH ×2 (06:27→18:00)
[2023-04-12] MEDS: HYDROGEN PEROXIDE 3% 118 ML BOTTLE TP SCH ×2 (08:06→21:01)
[2023-04-12] MEDS: SODIUM CHLORIDE 1,000 MG TABLET GT SCH ×3 (09:00→17:00)
[2023-04-12] MEDS: REMEDY ESSENTIAL ZINC PASTE 113 GM TP SCH ×2 (09:00→21:06)
[2023-04-12] MEDS: CLOPIDOGREL 75 MG TABLET GT SCH (09:00)
[2023-04-12] MEDS: VITAMINS A AND D 5 GM UD PKT TP SCH ×2 (09:00→21:07)
[2023-04-12] MEDS: ASPIRIN 81 MG TAB.CHEW GT SCH (09:58)
[2023-04-12] MEDS: LOSARTAN POTASSIUM 25 MG TABLET GT SCH (09:59)
[2023-04-12] MEDS: ACIDOPHILUS/BULGARICUS CHEW TAB GT SCH ×2 (09:59→21:05)
[2023-04-12] MEDS: METOPROLOL TARTRATE 25 MG TABLET GT SCH ×2 (10:00→21:00)
[2023-04-12] MEDS: diphenhydrAMINE 25 MG/10 ML UDC GT PRN (10:35)
[2023-04-12] MEDS: ACETAMINOPHEN 650 MG/20 ML UDC- SA PATIENTS-PAIN ONLY GT PRN (10:37)
[2023-04-12] MEDS: PEPTAMEN AF 1000ML BAG GT PRN (14:10)
[2023-04-12] MEDS: ATORVASTATIN 20 MG TABLET GT SCH (21:05)
[2023-04-12] MEDS: NUTRISOURCE FIBER 4 GM PACKET GT SCH (21:06)
[2023-04-12] MEDS: MULTIVIT, IRON, MIN NO. 8, FA TABLET GT SCH (21:06)
[2023-04-13] VITALS (9 sets, daily range): TEMP 97.5–98.4; O2SAT 96–98
[2023-04-13] MEDS: ALBUTEROL SULFATE 2.5 MG/3 ML NEBU NEB SCH ×4 (00:59→19:27)
[2023-04-13] MEDS: OMEPRAZOLE 20 MG CAPSULE.DR GT SCH ×2 (05:48→17:04)
[2023-04-13] MEDS: BACLOFEN 10 MG TABLET GT SCH ×3 (05:48→21:14)
[2023-04-13] MEDS: HYDROGEN PEROXIDE 3% 118 ML BOTTLE TP SCH ×2 (07:15→19:27)
[2023-04-13] MEDS: METOPROLOL TARTRATE 25 MG TABLET GT SCH ×2 (09:00→21:13)
[2023-04-13] MEDS: ASPIRIN 81 MG TAB.CHEW GT SCH (09:50)
[2023-04-13] MEDS: LOSARTAN POTASSIUM 25 MG TABLET GT SCH (09:51)
[2023-04-13] MEDS: ACIDOPHILUS/BULGARICUS CHEW TAB GT SCH ×2 (09:51→21:12)
[2023-04-13] MEDS: REMEDY ESSENTIAL ZINC PASTE 113 GM TP SCH ×2 (09:53→21:14)
[2023-04-13] MEDS: VITAMINS A AND D 5 GM UD PKT TP SCH ×2 (09:53→21:14)
[2023-04-13] MEDS: CLOPIDOGREL 75 MG TABLET GT SCH (09:53)
[2023-04-13] MEDS: SODIUM CHLORIDE 1,000 MG TABLET GT SCH ×3 (09:53→17:04)
[2023-04-13] MEDS: PEPTAMEN AF 1000ML BAG GT PRN (14:55)
[2023-04-13] MEDS: ATORVASTATIN 20 MG TABLET GT SCH (21:13)
[2023-04-13] MEDS: NUTRISOURCE FIBER 4 GM PACKET GT SCH (21:14)
[2023-04-14] VITALS (9 sets, daily range): TEMP 97.9–98.2; O2SAT 96–99
[2023-04-14] MEDS: ALBUTEROL SULFATE 2.5 MG/3 ML NEBU NEB SCH ×4 (01:27→19:27)
[2023-04-14] MEDS: BACLOFEN 10 MG TABLET GT SCH ×3 (05:38→22:19)
[2023-04-14] MEDS: OMEPRAZOLE 20 MG CAPSULE.DR GT SCH ×2 (05:38→17:25)
[2023-04-14] MEDS: HYDROGEN PEROXIDE 3% 118 ML BOTTLE TP SCH ×2 (07:28→21:58)
[2023-04-14] MEDS: VITAMINS A AND D 5 GM UD PKT TP SCH ×2 (08:54→20:45)
[2023-04-14] MEDS: METOPROLOL TARTRATE 25 MG TABLET GT SCH ×2 (08:54→20:44)
[2023-04-14] MEDS: ACIDOPHILUS/BULGARICUS CHEW TAB GT SCH ×2 (08:54→20:43)
[2023-04-14] MEDS: CLOPIDOGREL 75 MG TABLET GT SCH (08:54)
[2023-04-14] MEDS: REMEDY ESSENTIAL ZINC PASTE 113 GM TP SCH ×2 (08:54→20:45)
[2023-04-14] MEDS: ASPIRIN 81 MG TAB.CHEW GT SCH (08:54)
[2023-04-14] MEDS: SODIUM CHLORIDE 1,000 MG TABLET GT SCH ×3 (08:54→17:25)
[2023-04-14] MEDS: LOSARTAN POTASSIUM 25 MG TABLET GT SCH (08:54)
[2023-04-14] MEDS: ATORVASTATIN 20 MG TABLET GT SCH (20:43)
[2023-04-14] MEDS: NUTRISOURCE FIBER 4 GM PACKET GT SCH (20:44)
[2023-04-14] MEDS: MULTIVIT, IRON, MIN NO. 8, FA TABLET GT SCH (20:44)
[2023-04-14] MEDS: diphenhydrAMINE 25 MG/10 ML UDC GT PRN (20:46)
[2023-04-15] VITALS (10 sets, daily range): TEMP 97.8–98.5; O2SAT 96–99
[2023-04-15] MEDS: ALBUTEROL SULFATE 2.5 MG/3 ML NEBU NEB SCH ×4 (01:14→19:47)
[2023-04-15] MEDS: OMEPRAZOLE 20 MG CAPSULE.DR GT SCH ×2 (05:58→17:36)
[2023-04-15] MEDS: BACLOFEN 10 MG TABLET GT SCH ×3 (05:58→22:56)
[2023-04-15 07:09] LABS: BASOPHILS % (AUTO) 0.3 % (0.0-2.0); EOSINOPHILS # (AUTO) 0.4 K/uL (0.0-0.7); EOSINOPHILS % (AUTO) 8.4 % (0.0-7.0); HEMATOCRIT 38.4 % (36.7-47.1); HEMOGLOBIN 13.2 g/dL (12.5-16.3); LYMPHOCYTES # (AUTO) 1.3 K/uL (0.8-4.8); LYMPHOCYTES % (AUTO) 24.6 % (20.5-51.5); MEAN CORPUSCULAR HEMOGLOBIN 32.3 uug (23.8-33.4); MEAN CORPUSCULAR HGB CONC 35 g/dL (32.5-36.3); MEAN CORPUSCULAR VOLUME 93.5 fL (73.0-96.2); MONOCYTES # (AUTO) 0.4 K/uL (0.1-1.30); MONOCYTES % (AUTO) 7.3 % (0.0-11.0); NEUTROPHILS # (AUTO) 3.1 K/uL (1.8-8.9); NEUTROPHILS % (AUTO) 59.4 % (38.5-71.5); PLATELET COUNT (AUTO) 248 K/uL (152-348); RED CELL DISTRIBUTION WIDTH 12.9 % (12.1-16.2); WHITE BLOOD COUNT (AUTO) 5.3 K/uL (3.6-10.2)
[2023-04-15] MEDS: HYDROGEN PEROXIDE 3% 118 ML BOTTLE TP SCH ×2 (07:23→21:13)
[2023-04-15 07:25] LABS: CALCIUM 9.2 mg/dL (8.5-10.1); CREATININE 0.8 mg/dL (0.6-1.3); POTASSIUM 4.1 mmol/L (3.5-5.1)
[2023-04-15] MEDS: ASPIRIN 81 MG TAB.CHEW GT SCH (08:38)
[2023-04-15] MEDS: METOPROLOL TARTRATE 25 MG TABLET GT SCH ×2 (08:39→21:29)
[2023-04-15] MEDS: LOSARTAN POTASSIUM 25 MG TABLET GT SCH (08:39)
[2023-04-15] MEDS: ACIDOPHILUS/BULGARICUS CHEW TAB GT SCH ×2 (08:39→21:24)
[2023-04-15] MEDS: CLOPIDOGREL 75 MG TABLET GT SCH (08:40)
[2023-04-15] MEDS: VITAMINS A AND D 5 GM UD PKT TP SCH ×2 (08:40→21:25)
[2023-04-15] MEDS: SODIUM CHLORIDE 1,000 MG TABLET GT SCH ×3 (08:40→17:36)
[2023-04-15] MEDS: REMEDY ESSENTIAL ZINC PASTE 113 GM TP SCH ×2 (08:40→21:25)
[2023-04-15] MEDS: diphenhydrAMINE 25 MG/10 ML UDC GT PRN (08:44)
[2023-04-15] MEDS: NEOMY/BACITRA/POLYMYXIN B OINT UD PACKET TP SCH (18:55)
[2023-04-15] MEDS: NUTRISOURCE FIBER 4 GM PACKET GT SCH (21:25)
[2023-04-15] MEDS: ATORVASTATIN 20 MG TABLET GT SCH (21:31)
[2023-04-16] VITALS (11 sets, daily range): TEMP 97.8–98.4; O2SAT 98–99
[2023-04-16] MEDS: ALBUTEROL SULFATE 2.5 MG/3 ML NEBU NEB SCH ×4 (01:21→21:07)
[2023-04-16] MEDS: BACLOFEN 10 MG TABLET GT SCH ×3 (05:27→21:09)
[2023-04-16] MEDS: OMEPRAZOLE 20 MG CAPSULE.DR GT SCH ×2 (05:27→17:22)
[2023-04-16] MEDS: HYDROGEN PEROXIDE 3% 118 ML BOTTLE TP SCH ×2 (08:08→21:07)
[2023-04-16] MEDS: ASPIRIN 81 MG TAB.CHEW GT SCH (08:50)
[2023-04-16] MEDS: LOSARTAN POTASSIUM 25 MG TABLET GT SCH (08:51)
[2023-04-16] MEDS: REMEDY ESSENTIAL ZINC PASTE 113 GM TP SCH ×2 (08:51→21:16)
[2023-04-16] MEDS: ACIDOPHILUS/BULGARICUS CHEW TAB GT SCH ×2 (08:51→21:09)
[2023-04-16] MEDS: METOPROLOL TARTRATE 25 MG TABLET GT SCH ×2 (08:51→21:14)
[2023-04-16] MEDS: NEOMY/BACITRA/POLYMYXIN B OINT UD PACKET TP SCH ×3 (08:51→21:16)
[2023-04-16] MEDS: CLOPIDOGREL 75 MG TABLET GT SCH (08:51)
[2023-04-16] MEDS: SODIUM CHLORIDE 1,000 MG TABLET GT SCH ×3 (08:51→17:22)
[2023-04-16] MEDS: VITAMINS A AND D 5 GM UD PKT TP SCH ×2 (08:51→21:16)
[2023-04-16] MEDS: PEPTAMEN AF 1000ML BAG GT PRN (11:50)
[2023-04-16] MEDS: ATORVASTATIN 20 MG TABLET GT SCH (21:13)
[2023-04-16] MEDS: NUTRISOURCE FIBER 4 GM PACKET GT SCH (21:13)
[2023-04-16] MEDS: MULTIVIT, IRON, MIN NO. 8, FA TABLET GT SCH (21:15)
[2023-04-16] MEDS: diphenhydrAMINE 25 MG/10 ML UDC GT PRN (21:24)
[2023-04-17] VITALS (12 sets, daily range): TEMP 97.4–98; O2SAT 98–99
[2023-04-17] MEDS: ALBUTEROL SULFATE 2.5 MG/3 ML NEBU NEB SCH ×4 (01:29→21:13)
[2023-04-17] MEDS: BACLOFEN 10 MG TABLET GT SCH ×3 (05:18→20:35)
[2023-04-17] MEDS: OMEPRAZOLE 20 MG CAPSULE.DR GT SCH ×2 (05:18→17:17)
[2023-04-17] MEDS: PEPTAMEN AF 1000ML BAG GT PRN (06:00)
[2023-04-17] MEDS: HYDROGEN PEROXIDE 3% 118 ML BOTTLE TP SCH ×2 (07:21→21:13)
[2023-04-17] MEDS: ASPIRIN 81 MG TAB.CHEW GT SCH (08:38)
[2023-04-17] MEDS: NEOMY/BACITRA/POLYMYXIN B OINT UD PACKET TP SCH ×3 (08:39→20:34)
[2023-04-17] MEDS: REMEDY ESSENTIAL ZINC PASTE 113 GM TP SCH ×2 (08:39→20:35)
[2023-04-17] MEDS: SODIUM CHLORIDE 1,000 MG TABLET GT SCH ×3 (08:39→17:17)
[2023-04-17] MEDS: METOPROLOL TARTRATE 25 MG TABLET GT SCH ×2 (08:39→20:39)
[2023-04-17] MEDS: ACIDOPHILUS/BULGARICUS CHEW TAB GT SCH ×2 (08:39→20:34)
[2023-04-17] MEDS: CLOPIDOGREL 75 MG TABLET GT SCH (08:39)
[2023-04-17] MEDS: LOSARTAN POTASSIUM 25 MG TABLET GT SCH (08:39)
[2023-04-17] MEDS: VITAMINS A AND D 5 GM UD PKT TP SCH ×2 (08:39→20:35)
[2023-04-17] MEDS: diphenhydrAMINE 25 MG/10 ML UDC GT PRN ×2 (09:12→20:42)
[2023-04-17] MEDS: NUTRISOURCE FIBER 4 GM PACKET GT SCH (20:34)
[2023-04-17] MEDS: ATORVASTATIN 20 MG TABLET GT SCH (20:39)
[2023-04-17] MEDS: ACETAMINOPHEN 650 MG/20 ML UDC- SA PATIENTS-PAIN ONLY GT PRN (22:04)
[2023-04-18] VITALS (11 sets, daily range): TEMP 98–98.2; O2SAT 98–99
[2023-04-18] MEDS: ALBUTEROL SULFATE 2.5 MG/3 ML NEBU NEB SCH ×4 (00:46→19:18)
[2023-04-18] MEDS: BACLOFEN 10 MG TABLET GT SCH ×3 (06:30→22:05)
[2023-04-18] MEDS: OMEPRAZOLE 20 MG CAPSULE.DR GT SCH ×2 (06:30→17:22)
[2023-04-18] MEDS: HYDROGEN PEROXIDE 3% 118 ML BOTTLE TP SCH ×2 (07:16→19:18)
[2023-04-18] MEDS: PEPTAMEN AF 1000ML BAG GT PRN (07:38)
[2023-04-18] MEDS: ASPIRIN 81 MG TAB.CHEW GT SCH (08:42)
[2023-04-18] MEDS: ACIDOPHILUS/BULGARICUS CHEW TAB GT SCH ×2 (08:43→20:34)
[2023-04-18] MEDS: LOSARTAN POTASSIUM 25 MG TABLET GT SCH (08:43)
[2023-04-18] MEDS: SODIUM CHLORIDE 1,000 MG TABLET GT SCH ×3 (08:44→17:22)
[2023-04-18] MEDS: CLOPIDOGREL 75 MG TABLET GT SCH (08:44)
[2023-04-18] MEDS: METOPROLOL TARTRATE 25 MG TABLET GT SCH ×2 (08:44→20:52)
[2023-04-18] MEDS: diphenhydrAMINE 25 MG/10 ML UDC GT PRN (08:45)
[2023-04-18] MEDS: REMEDY ESSENTIAL ZINC PASTE 113 GM TP SCH ×2 (08:45→20:36)
[2023-04-18] MEDS: VITAMINS A AND D 5 GM UD PKT TP SCH ×2 (08:45→20:36)
[2023-04-18] MEDS: NEOMY/BACITRA/POLYMYXIN B OINT UD PACKET TP SCH ×3 (08:45→20:36)
[2023-04-18] MEDS: NUTRISOURCE FIBER 4 GM PACKET GT SCH (20:34)
[2023-04-18] MEDS: MULTIVIT, IRON, MIN NO. 8, FA TABLET GT SCH (20:36)
[2023-04-18] MEDS: ATORVASTATIN 20 MG TABLET GT SCH (20:51)
[2023-04-19] VITALS (10 sets, daily range): TEMP 97–97.8; O2SAT 96–99
[2023-04-19] MEDS: ALBUTEROL SULFATE 2.5 MG/3 ML NEBU NEB SCH ×4 (01:35→19:20)
[2023-04-19] MEDS: BACLOFEN 10 MG TABLET GT SCH ×3 (05:27→21:18)
[2023-04-19] MEDS: OMEPRAZOLE 20 MG CAPSULE.DR GT SCH ×2 (05:28→17:01)
[2023-04-19] MEDS: VITAL AF 1.2 1,000 ML LIQUID GT PRN (05:38)
[2023-04-19] MEDS: HYDROGEN PEROXIDE 3% 118 ML BOTTLE TP SCH ×2 (07:38→19:20)
[2023-04-19] MEDS: ASPIRIN 81 MG TAB.CHEW GT SCH (08:59)
[2023-04-19] MEDS: METOPROLOL TARTRATE 25 MG TABLET GT SCH ×2 (09:00→21:00)
[2023-04-19] MEDS: ACIDOPHILUS/BULGARICUS CHEW TAB GT SCH ×2 (09:00→21:03)
[2023-04-19] MEDS: LOSARTAN POTASSIUM 25 MG TABLET GT SCH (09:00)
[2023-04-19] MEDS: SODIUM CHLORIDE 1,000 MG TABLET GT SCH ×3 (09:01→17:01)
[2023-04-19] MEDS: VITAMINS A AND D 5 GM UD PKT TP SCH ×2 (09:01→21:06)
[2023-04-19] MEDS: CLOPIDOGREL 75 MG TABLET GT SCH (09:01)
[2023-04-19] MEDS: REMEDY ESSENTIAL ZINC PASTE 113 GM TP SCH ×2 (09:01→21:06)
[2023-04-19] MEDS: NEOMY/BACITRA/POLYMYXIN B OINT UD PACKET TP SCH ×3 (09:01→21:06)
[2023-04-19] MEDS: NUTRISOURCE FIBER 4 GM PACKET GT SCH (21:06)
[2023-04-19] MEDS: ATORVASTATIN 20 MG TABLET GT SCH (21:21)
[2023-04-20] VITALS (11 sets, daily range): TEMP 97.1–97.6; O2SAT 96–99
[2023-04-20] MEDS: ALBUTEROL SULFATE 2.5 MG/3 ML NEBU NEB SCH ×4 (01:29→19:27)
[2023-04-20] MEDS: VITAL AF 1.2 1,000 ML LIQUID GT PRN (04:10)
[2023-04-20] MEDS: ACETAMINOPHEN 650 MG/20 ML UDC- SA PATIENTS-PAIN ONLY GT PRN (04:12)
[2023-04-20] MEDS: OMEPRAZOLE 20 MG CAPSULE.DR GT SCH ×2 (05:24→17:32)
[2023-04-20] MEDS: BACLOFEN 10 MG TABLET GT SCH ×3 (05:24→21:15)
[2023-04-20] MEDS: HYDROGEN PEROXIDE 3% 118 ML BOTTLE TP SCH ×2 (08:43→22:31)
[2023-04-20] MEDS: ASPIRIN 81 MG TAB.CHEW GT SCH (08:57)
[2023-04-20] MEDS: ACIDOPHILUS/BULGARICUS CHEW TAB GT SCH ×2 (08:58→21:14)
[2023-04-20] MEDS: METOPROLOL TARTRATE 25 MG TABLET GT SCH ×2 (08:58→21:14)
[2023-04-20] MEDS: LOSARTAN POTASSIUM 25 MG TABLET GT SCH (08:58)
[2023-04-20] MEDS: NEOMY/BACITRA/POLYMYXIN B OINT UD PACKET TP SCH ×3 (09:00→21:15)
[2023-04-20] MEDS: VITAMINS A AND D 5 GM UD PKT TP SCH ×2 (09:02→21:15)
[2023-04-20] MEDS: CLOPIDOGREL 75 MG TABLET GT SCH (09:02)
[2023-04-20] MEDS: SODIUM CHLORIDE 1,000 MG TABLET GT SCH ×3 (09:02→17:32)
[2023-04-20] MEDS: REMEDY ESSENTIAL ZINC PASTE 113 GM TP SCH ×2 (09:02→21:15)
[2023-04-20] MEDS: MULTIVIT, IRON, MIN NO. 8, FA TABLET GT SCH (21:14)
[2023-04-20] MEDS: NUTRISOURCE FIBER 4 GM PACKET GT SCH (21:14)
[2023-04-20] MEDS: ATORVASTATIN 20 MG TABLET GT SCH (21:14)
[2023-04-21] VITALS (12 sets, daily range): TEMP 97.4–98; O2SAT 96–99
[2023-04-21] MEDS: ALBUTEROL SULFATE 2.5 MG/3 ML NEBU NEB SCH ×4 (02:16→19:21)
[2023-04-21 04:28] LABS: *BILIRUBIN,URIN NEGATIVE (NEGATIVE); *BLOOD, URINE 2+ (NEGATIVE); *COLOR,URINE YELLOW (YELLOW); *KETONES,URINE NEGATIVE (NEGATIVE); *PROTEIN,URINE NEGATIVE (NEGATIVE); *UROBILINOGEN,URINE 0.2 E.U./dl (NORMAL); LEUKOCYTE ESTERASE ,URINE 1+ (NEGATIVE); NITRITE, URINE NEGATIVE (NEGATIVE); UGLUCOSE NEGATIVE (NEGATIVE)
[2023-04-21 04:29] LABS: *CLARITY,URINE HAZY (CLEAR)
[2023-04-21 04:48] LABS: BACTERIA,URINE FEW /HPF (NONE SEEN); RBC,URINE 20-50 /HPF (0-3); SQUAMOUS EPITHELIAL CELL,UR FEW /HPF (NONE SEEN); WBC,URINE 20-50 /HPF (0-3)
[2023-04-21] MEDS: VITAL AF 1.2 1,000 ML LIQUID GT PRN (05:56)
[2023-04-21] MEDS: BACLOFEN 10 MG TABLET GT SCH ×3 (05:56→21:03)
[2023-04-21] MEDS: OMEPRAZOLE 20 MG CAPSULE.DR GT SCH ×2 (05:56→17:28)
[2023-04-21 07:19] LABS: BASOPHILS % (AUTO) 0.8 % (0.0-2.0); EOSINOPHILS # (AUTO) 0.4 K/uL (0.0-0.7); EOSINOPHILS % (AUTO) 7.8 % (0.0-7.0); HEMATOCRIT 37.4 % (36.7-47.1); HEMOGLOBIN 13.1 g/dL (12.5-16.3); LYMPHOCYTES # (AUTO) 1.2 K/uL (0.8-4.8); LYMPHOCYTES % (AUTO) 21.9 % (20.5-51.5); MEAN CORPUSCULAR HEMOGLOBIN 32.4 uug (23.8-33.4); MEAN CORPUSCULAR HGB CONC 35 g/dL (32.5-36.3); MEAN CORPUSCULAR VOLUME 92.2 fL (73.0-96.2); MONOCYTES # (AUTO) 0.4 K/uL (0.1-1.30); MONOCYTES % (AUTO) 6.4 % (0.0-11.0); NEUTROPHILS # (AUTO) 3.5 K/uL (1.8-8.9); NEUTROPHILS % (AUTO) 63.1 % (38.5-71.5); PLATELET COUNT (AUTO) 260 K/uL (152-348); RED BLOOD CELL COUNT(AUTO) 4.06 MIL/uL (4.06-5.63); WHITE BLOOD COUNT (AUTO) 5.6 K/uL (3.6-10.2)
[2023-04-21 07:27] LABS: DIFFERENTIAL COMMENT 1
[2023-04-21] MEDS: HYDROGEN PEROXIDE 3% 118 ML BOTTLE TP SCH ×2 (08:12→21:50)
[2023-04-21] MEDS: LOSARTAN POTASSIUM 25 MG TABLET GT SCH (08:58)
[2023-04-21] MEDS: ACIDOPHILUS/BULGARICUS CHEW TAB GT SCH ×2 (08:58→21:02)
[2023-04-21] MEDS: VITAMINS A AND D 5 GM UD PKT TP SCH ×2 (09:00→21:03)
[2023-04-21] MEDS: NEOMY/BACITRA/POLYMYXIN B OINT UD PACKET TP SCH ×3 (09:00→21:03)
[2023-04-21] MEDS: REMEDY ESSENTIAL ZINC PASTE 113 GM TP SCH ×2 (09:01→21:03)
[2023-04-21] MEDS: CLOPIDOGREL 75 MG TABLET GT SCH (09:01)
[2023-04-21] MEDS: SODIUM CHLORIDE 1,000 MG TABLET GT SCH ×3 (09:01→17:28)
[2023-04-21] MEDS: METOPROLOL TARTRATE 25 MG TABLET GT SCH ×2 (09:01→21:02)
[2023-04-21] MEDS: NUTRISOURCE FIBER 4 GM PACKET GT SCH (21:02)
[2023-04-21] MEDS: ATORVASTATIN 20 MG TABLET GT SCH (21:02)
[2023-04-21] MEDS: diphenhydrAMINE 25 MG/10 ML UDC GT PRN (21:23)
[2023-04-22] VITALS (10 sets, daily range): TEMP 97.5–98.6; O2SAT 96–99
[2023-04-22] MEDS: ALBUTEROL SULFATE 2.5 MG/3 ML NEBU NEB SCH ×4 (04:04→19:24)
[2023-04-22] MEDS: OMEPRAZOLE 20 MG CAPSULE.DR GT SCH ×2 (05:26→17:23)
[2023-04-22] MEDS: BACLOFEN 10 MG TABLET GT SCH ×3 (05:26→22:15)
[2023-04-22] MEDS: VITAL AF 1.2 1,000 ML LIQUID GT PRN (06:09)
[2023-04-22] MEDS: ACIDOPHILUS/BULGARICUS CHEW TAB GT SCH ×2 (08:11→20:22)
[2023-04-22] MEDS: LOSARTAN POTASSIUM 25 MG TABLET GT SCH (08:11)
[2023-04-22] MEDS: CLOPIDOGREL 75 MG TABLET GT SCH (08:13)
[2023-04-22] MEDS: VITAMINS A AND D 5 GM UD PKT TP SCH ×2 (08:13→20:25)
[2023-04-22] MEDS: NEOMY/BACITRA/POLYMYXIN B OINT UD PACKET TP SCH ×2 (08:13→20:25)
[2023-04-22] MEDS: REMEDY ESSENTIAL ZINC PASTE 113 GM TP SCH ×2 (08:13→20:25)
[2023-04-22] MEDS: SODIUM CHLORIDE 1,000 MG TABLET GT SCH ×3 (08:13→17:23)
[2023-04-22] MEDS: METOPROLOL TARTRATE 25 MG TABLET GT SCH ×2 (08:13→20:33)
[2023-04-22] MEDS: HYDROGEN PEROXIDE 3% 118 ML BOTTLE TP SCH ×2 (08:14→21:46)
[2023-04-22] MEDS: diphenhydrAMINE 25 MG/10 ML UDC GT PRN ×2 (08:15→20:34)
[2023-04-22] MEDS: MULTIVIT, IRON, MIN NO. 8, FA TABLET GT SCH (20:25)
[2023-04-22] MEDS: NUTRISOURCE FIBER 4 GM PACKET GT SCH (20:25)
[2023-04-22] MEDS: ATORVASTATIN 20 MG TABLET GT SCH (20:33)
[2023-04-23] VITALS (10 sets, daily range): TEMP 96.8–97.6; O2SAT 98–99
[2023-04-23] MEDS: ALBUTEROL SULFATE 2.5 MG/3 ML NEBU NEB SCH ×4 (01:43→19:45)
[2023-04-23] MEDS: VITAL AF 1.2 1,000 ML LIQUID GT PRN (05:00)
[2023-04-23] MEDS: OMEPRAZOLE 20 MG CAPSULE.DR GT SCH ×2 (05:02→17:42)
[2023-04-23] MEDS: BACLOFEN 10 MG TABLET GT SCH ×3 (05:02→21:11)
[2023-04-23] MEDS: HYDROGEN PEROXIDE 3% 118 ML BOTTLE TP SCH ×2 (07:16→21:11)
[2023-04-23] MEDS: ACIDOPHILUS/BULGARICUS CHEW TAB GT SCH ×2 (08:19→21:10)
[2023-04-23] MEDS: LOSARTAN POTASSIUM 25 MG TABLET GT SCH (08:19)
[2023-04-23] MEDS: METOPROLOL TARTRATE 25 MG TABLET GT SCH ×2 (08:19→21:00)
[2023-04-23] MEDS: SODIUM CHLORIDE 1,000 MG TABLET GT SCH ×3 (08:20→17:42)
[2023-04-23] MEDS: REMEDY ESSENTIAL ZINC PASTE 113 GM TP SCH ×2 (08:20→21:11)
[2023-04-23] MEDS: VITAMINS A AND D 5 GM UD PKT TP SCH ×2 (08:20→21:11)
[2023-04-23] MEDS: NEOMY/BACITRA/POLYMYXIN B OINT UD PACKET TP SCH ×2 (08:20→21:11)
[2023-04-23] MEDS: CLOPIDOGREL 75 MG TABLET GT SCH (08:20)
[2023-04-23] MEDS: diphenhydrAMINE 25 MG/10 ML UDC GT PRN (08:21)
[2023-04-23] MEDS: ATORVASTATIN 20 MG TABLET GT SCH (21:10)
[2023-04-23] MEDS: NUTRISOURCE FIBER 4 GM PACKET GT SCH (21:11)
[2023-04-24] VITALS (10 sets, daily range): TEMP 97.8–98; O2SAT 97–99
[2023-04-24] MEDS: ALBUTEROL SULFATE 2.5 MG/3 ML NEBU NEB SCH ×4 (01:25→19:17)
[2023-04-24] MEDS: OMEPRAZOLE 20 MG CAPSULE.DR GT SCH ×2 (05:38→17:16)
[2023-04-24] MEDS: BACLOFEN 10 MG TABLET GT SCH ×3 (05:38→21:04)
[2023-04-24] MEDS: VITAL AF 1.2 1,000 ML LIQUID GT PRN (07:02)
[2023-04-24] MEDS: ACIDOPHILUS/BULGARICUS CHEW TAB GT SCH ×2 (09:43→20:44)
[2023-04-24] MEDS: LOSARTAN POTASSIUM 25 MG TABLET GT SCH (09:45)
[2023-04-24] MEDS: METOPROLOL TARTRATE 25 MG TABLET GT SCH ×2 (09:47→20:54)
[2023-04-24] MEDS: SODIUM CHLORIDE 1,000 MG TABLET GT SCH ×3 (09:47→17:16)
[2023-04-24] MEDS: VITAMINS A AND D 5 GM UD PKT TP SCH ×2 (09:48→20:54)
[2023-04-24] MEDS: CIPROFLOXACIN HCL 250 MG TABLET GT SCH ×2 (09:48→21:04)
[2023-04-24] MEDS: NEOMY/BACITRA/POLYMYXIN B OINT UD PACKET TP SCH ×2 (09:48→20:54)
[2023-04-24] MEDS: CLOPIDOGREL 75 MG TABLET GT SCH (09:48)
[2023-04-24] MEDS: REMEDY ESSENTIAL ZINC PASTE 113 GM TP SCH ×2 (09:48→20:54)
[2023-04-24] MEDS: HYDROGEN PEROXIDE 3% 118 ML BOTTLE TP SCH ×2 (09:59→19:17)
[2023-04-24] MEDS: diphenhydrAMINE 25 MG/10 ML UDC GT PRN (13:20)
[2023-04-24] MEDS: ATORVASTATIN 20 MG TABLET GT SCH (20:53)
[2023-04-24] MEDS: MULTIVIT, IRON, MIN NO. 8, FA TABLET GT SCH (20:54)
[2023-04-24] MEDS: NUTRISOURCE FIBER 4 GM PACKET GT SCH (20:54)
[2023-04-25] VITALS (10 sets, daily range): TEMP 97.6–98.4; O2SAT 97–99
[2023-04-25] MEDS: ALBUTEROL SULFATE 2.5 MG/3 ML NEBU NEB SCH ×4 (01:38→19:11)
[2023-04-25] MEDS: VITAL AF 1.2 1,000 ML LIQUID GT PRN (02:02)
[2023-04-25] MEDS: BACLOFEN 10 MG TABLET GT SCH ×3 (05:04→22:33)
[2023-04-25] MEDS: OMEPRAZOLE 20 MG CAPSULE.DR GT SCH ×2 (05:04→17:23)
[2023-04-25] MEDS: HYDROGEN PEROXIDE 3% 118 ML BOTTLE TP SCH ×2 (08:27→19:11)
[2023-04-25] MEDS: CLOPIDOGREL 75 MG TABLET GT SCH (08:46)
[2023-04-25] MEDS: SODIUM CHLORIDE 1,000 MG TABLET GT SCH ×3 (08:46→17:23)
[2023-04-25] MEDS: LOSARTAN POTASSIUM 25 MG TABLET GT SCH (08:46)
[2023-04-25] MEDS: METOPROLOL TARTRATE 25 MG TABLET GT SCH ×2 (08:46→20:18)
[2023-04-25] MEDS: ACIDOPHILUS/BULGARICUS CHEW TAB GT SCH ×2 (08:46→20:18)
[2023-04-25] MEDS: CIPROFLOXACIN HCL 250 MG TABLET GT SCH ×2 (08:46→20:18)
[2023-04-25] MEDS: REMEDY ESSENTIAL ZINC PASTE 113 GM TP SCH ×2 (08:47→20:18)
[2023-04-25] MEDS: NEOMY/BACITRA/POLYMYXIN B OINT UD PACKET TP SCH ×2 (08:47→20:19)
[2023-04-25] MEDS: VITAMINS A AND D 5 GM UD PKT TP SCH ×2 (08:47→20:19)
[2023-04-25] MEDS: NUTRISOURCE FIBER 4 GM PACKET GT SCH (20:18)
[2023-04-25] MEDS: ATORVASTATIN 20 MG TABLET GT SCH (20:18)
[2023-04-26] VITALS (10 sets, daily range): TEMP 97.6; O2SAT 97–99
[2023-04-26] MEDS: ALBUTEROL SULFATE 2.5 MG/3 ML NEBU NEB SCH ×4 (02:01→19:29)
[2023-04-26] MEDS: OMEPRAZOLE 20 MG CAPSULE.DR GT SCH ×2 (05:16→17:15)
[2023-04-26] MEDS: BACLOFEN 10 MG TABLET GT SCH ×3 (05:16→21:16)
[2023-04-26] MEDS: HYDROGEN PEROXIDE 3% 118 ML BOTTLE TP SCH ×2 (08:47→19:29)
[2023-04-26] MEDS: CIPROFLOXACIN HCL 250 MG TABLET GT SCH ×2 (09:09→21:15)
[2023-04-26] MEDS: ACIDOPHILUS/BULGARICUS CHEW TAB GT SCH ×2 (09:09→21:15)
[2023-04-26] MEDS: LOSARTAN POTASSIUM 25 MG TABLET GT SCH (09:09)
[2023-04-26] MEDS: NEOMY/BACITRA/POLYMYXIN B OINT UD PACKET TP SCH ×2 (09:11→21:16)
[2023-04-26] MEDS: VITAMINS A AND D 5 GM UD PKT TP SCH ×2 (09:11→21:16)
[2023-04-26] MEDS: METOPROLOL TARTRATE 25 MG TABLET GT SCH ×2 (09:11→21:15)
[2023-04-26] MEDS: REMEDY ESSENTIAL ZINC PASTE 113 GM TP SCH ×2 (09:11→21:16)
[2023-04-26] MEDS: SODIUM CHLORIDE 1,000 MG TABLET GT SCH ×3 (09:11→17:15)
[2023-04-26] MEDS: CLOPIDOGREL 75 MG TABLET GT SCH (09:13)
[2023-04-26] MEDS: diphenhydrAMINE 25 MG/10 ML UDC GT PRN (13:13)
[2023-04-26] MEDS: ATORVASTATIN 20 MG TABLET GT SCH (21:15)
[2023-04-26] MEDS: NUTRISOURCE FIBER 4 GM PACKET GT SCH (21:15)
[2023-04-26] MEDS: MULTIVIT, IRON, MIN NO. 8, FA TABLET GT SCH (21:15)
[2023-04-27] VITALS (11 sets, daily range): TEMP 97–97.6; O2SAT 97–98
[2023-04-27] MEDS: diphenhydrAMINE 25 MG/10 ML UDC GT PRN (01:58)
[2023-04-27] MEDS: VITAL AF 1.2 1,000 ML LIQUID GT PRN (01:58)
[2023-04-27] MEDS: ALBUTEROL SULFATE 2.5 MG/3 ML NEBU NEB SCH ×4 (05:27→19:23)
[2023-04-27] MEDS: OMEPRAZOLE 20 MG CAPSULE.DR GT SCH ×2 (05:52→17:18)
[2023-04-27] MEDS: BACLOFEN 10 MG TABLET GT SCH ×3 (05:52→21:18)
[2023-04-27] MEDS: HYDROGEN PEROXIDE 3% 118 ML BOTTLE TP SCH ×2 (07:24→19:23)
[2023-04-27] MEDS: CIPROFLOXACIN HCL 250 MG TABLET GT SCH ×2 (09:45→21:17)
[2023-04-27] MEDS: ACIDOPHILUS/BULGARICUS CHEW TAB GT SCH ×2 (09:46→21:17)
[2023-04-27] MEDS: LOSARTAN POTASSIUM 25 MG TABLET GT SCH (09:46)
[2023-04-27] MEDS: SODIUM CHLORIDE 1,000 MG TABLET GT SCH ×3 (09:47→17:17)
[2023-04-27] MEDS: METOPROLOL TARTRATE 25 MG TABLET GT SCH ×2 (09:47→21:18)
[2023-04-27] MEDS: CLOPIDOGREL 75 MG TABLET GT SCH (09:48)
[2023-04-27] MEDS: VITAMINS A AND D 5 GM UD PKT TP SCH ×2 (09:48→21:18)
[2023-04-27] MEDS: NEOMY/BACITRA/POLYMYXIN B OINT UD PACKET TP SCH ×2 (09:48→21:18)
[2023-04-27] MEDS: REMEDY ESSENTIAL ZINC PASTE 113 GM TP SCH ×2 (09:48→21:18)
[2023-04-27] MEDS: ATORVASTATIN 20 MG TABLET GT SCH (21:17)
[2023-04-27] MEDS: NUTRISOURCE FIBER 4 GM PACKET GT SCH (21:18)
[2023-04-28] VITALS (9 sets, daily range): TEMP 97–98; O2SAT 97–98
[2023-04-28] MEDS: ALBUTEROL SULFATE 2.5 MG/3 ML NEBU NEB SCH ×4 (01:04→19:31)
[2023-04-28] MEDS: VITAL AF 1.2 1,000 ML LIQUID GT PRN (03:56)
[2023-04-28] MEDS: BACLOFEN 10 MG TABLET GT SCH ×3 (05:35→21:17)
[2023-04-28] MEDS: OMEPRAZOLE 20 MG CAPSULE.DR GT SCH ×2 (05:35→17:15)
[2023-04-28] MEDS: HYDROGEN PEROXIDE 3% 118 ML BOTTLE TP SCH ×2 (07:52→21:11)
[2023-04-28] MEDS: ACIDOPHILUS/BULGARICUS CHEW TAB GT SCH ×2 (08:28→21:15)
[2023-04-28] MEDS: REMEDY ESSENTIAL ZINC PASTE 113 GM TP SCH ×2 (08:28→21:16)
[2023-04-28] MEDS: VITAMINS A AND D 5 GM UD PKT TP SCH ×2 (08:29→21:17)
[2023-04-28] MEDS: NEOMY/BACITRA/POLYMYXIN B OINT UD PACKET TP SCH ×2 (08:29→21:16)
[2023-04-28] MEDS: LOSARTAN POTASSIUM 25 MG TABLET GT SCH (08:35)
[2023-04-28] MEDS: SODIUM CHLORIDE 1,000 MG TABLET GT SCH ×3 (08:36→17:15)
[2023-04-28] MEDS: METOPROLOL TARTRATE 25 MG TABLET GT SCH ×2 (08:36→21:16)
[2023-04-28] MEDS: CLOPIDOGREL 75 MG TABLET GT SCH (08:38)
[2023-04-28] MEDS: CIPROFLOXACIN HCL 250 MG TABLET GT SCH ×2 (08:39→21:15)
[2023-04-28] MEDS: ATORVASTATIN 20 MG TABLET GT SCH (21:15)
[2023-04-28] MEDS: NUTRISOURCE FIBER 4 GM PACKET GT SCH (21:16)
[2023-04-28] MEDS: MULTIVIT, IRON, MIN NO. 8, FA TABLET GT SCH (21:16)
[2023-04-29] VITALS (9 sets, daily range): TEMP 97.6; O2SAT 97–99
[2023-04-29] MEDS: ALBUTEROL SULFATE 2.5 MG/3 ML NEBU NEB SCH ×4 (01:53→19:39)
[2023-04-29] MEDS: OMEPRAZOLE 20 MG CAPSULE.DR GT SCH ×2 (05:59→18:05)
[2023-04-29] MEDS: BACLOFEN 10 MG TABLET GT SCH ×3 (05:59→21:03)
[2023-04-29] MEDS: HYDROGEN PEROXIDE 3% 118 ML BOTTLE TP SCH ×2 (07:40→19:39)
[2023-04-29] MEDS: LOSARTAN POTASSIUM 25 MG TABLET GT SCH (08:25)
[2023-04-29] MEDS: ACIDOPHILUS/BULGARICUS CHEW TAB GT SCH ×2 (08:26→20:58)
[2023-04-29] MEDS: METOPROLOL TARTRATE 25 MG TABLET GT SCH ×2 (08:27→21:03)
[2023-04-29] MEDS: VITAMINS A AND D 5 GM UD PKT TP SCH ×2 (08:28→20:58)
[2023-04-29] MEDS: CLOPIDOGREL 75 MG TABLET GT SCH (08:28)
[2023-04-29] MEDS: REMEDY ESSENTIAL ZINC PASTE 113 GM TP SCH ×2 (08:28→20:58)
[2023-04-29] MEDS: NEOMY/BACITRA/POLYMYXIN B OINT UD PACKET TP SCH ×2 (08:28→20:58)
[2023-04-29] MEDS: SODIUM CHLORIDE 1,000 MG TABLET GT SCH ×3 (08:28→16:51)
[2023-04-29] MEDS: diphenhydrAMINE 25 MG/10 ML UDC GT PRN (20:58)
[2023-04-29] MEDS: NUTRISOURCE FIBER 4 GM PACKET GT SCH (20:58)
[2023-04-29] MEDS: ATORVASTATIN 20 MG TABLET GT SCH (21:03)
[2023-04-30] VITALS (11 sets, daily range): TEMP 97.4–97.8; O2SAT 97–98
[2023-04-30] MEDS: ALBUTEROL SULFATE 2.5 MG/3 ML NEBU NEB SCH ×4 (01:01→20:58)
[2023-04-30] MEDS: VITAL AF 1.2 1,000 ML LIQUID GT PRN (03:00)
[2023-04-30] MEDS: BACLOFEN 10 MG TABLET GT SCH ×3 (05:31→21:35)
[2023-04-30] MEDS: OMEPRAZOLE 20 MG CAPSULE.DR GT SCH ×2 (05:31→17:54)
[2023-04-30] MEDS: HYDROGEN PEROXIDE 3% 118 ML BOTTLE TP SCH ×2 (09:00→21:01)
[2023-04-30] MEDS: ACIDOPHILUS/BULGARICUS CHEW TAB GT SCH ×2 (09:46→21:00)
[2023-04-30] MEDS: LOSARTAN POTASSIUM 25 MG TABLET GT SCH (09:46)
[2023-04-30] MEDS: CLOPIDOGREL 75 MG TABLET GT SCH (09:56)
[2023-04-30] MEDS: REMEDY ESSENTIAL ZINC PASTE 113 GM TP SCH ×2 (09:56→21:00)
[2023-04-30] MEDS: SODIUM CHLORIDE 1,000 MG TABLET GT SCH ×3 (09:56→17:54)
[2023-04-30] MEDS: METOPROLOL TARTRATE 25 MG TABLET GT SCH ×2 (09:56→21:00)
[2023-04-30] MEDS: VITAMINS A AND D 5 GM UD PKT TP SCH ×2 (09:56→21:00)
[2023-04-30] MEDS: ATORVASTATIN 20 MG TABLET GT SCH (21:00)
[2023-04-30] MEDS: MULTIVIT, IRON, MIN NO. 8, FA TABLET GT SCH (21:00)
[2023-04-30] MEDS: NUTRISOURCE FIBER 4 GM PACKET GT SCH (21:34)
[2023-05-01] VITALS (12 sets, daily range): TEMP 97.8–98; O2SAT 97–99
[2023-05-01] MEDS: ALBUTEROL SULFATE 2.5 MG/3 ML NEBU NEB SCH ×4 (01:01→19:10)
[2023-05-01] MEDS: BACLOFEN 10 MG TABLET GT SCH ×3 (05:26→21:10)
[2023-05-01] MEDS: OMEPRAZOLE 20 MG CAPSULE.DR GT SCH ×2 (05:26→17:18)
[2023-05-01] MEDS: VITAL AF 1.2 1,000 ML LIQUID GT PRN (05:30)
[2023-05-01] MEDS: HYDROGEN PEROXIDE 3% 118 ML BOTTLE TP SCH ×2 (08:01→19:10)
[2023-05-01] MEDS: ACIDOPHILUS/BULGARICUS CHEW TAB GT SCH ×2 (09:15→21:09)
[2023-05-01] MEDS: REMEDY ESSENTIAL ZINC PASTE 113 GM TP SCH ×2 (09:15→21:09)
[2023-05-01] MEDS: VITAMINS A AND D 5 GM UD PKT TP SCH ×2 (09:15→21:09)
[2023-05-01] MEDS: LOSARTAN POTASSIUM 25 MG TABLET GT SCH (09:20)
[2023-05-01] MEDS: METOPROLOL TARTRATE 25 MG TABLET GT SCH ×2 (09:22→21:17)
[2023-05-01] MEDS: SODIUM CHLORIDE 1,000 MG TABLET GT SCH ×3 (09:22→17:17)
[2023-05-01] MEDS: CLOPIDOGREL 75 MG TABLET GT SCH (09:22)
[2023-05-01] MEDS: NUTRISOURCE FIBER 4 GM PACKET GT SCH (21:09)
[2023-05-01] MEDS: ATORVASTATIN 20 MG TABLET GT SCH (21:16)
[2023-05-02] VITALS (9 sets, daily range): TEMP 98; O2SAT 98
[2023-05-02] MEDS: ALBUTEROL SULFATE 2.5 MG/3 ML NEBU NEB SCH ×4 (01:35→19:17)
[2023-05-02] MEDS: BACLOFEN 10 MG TABLET GT SCH ×3 (05:32→21:14)
[2023-05-02] MEDS: OMEPRAZOLE 20 MG CAPSULE.DR GT SCH ×2 (05:32→17:58)
[2023-05-02] MEDS: VITAL AF 1.2 1,000 ML LIQUID GT PRN (05:32)
[2023-05-02] MEDS: HYDROGEN PEROXIDE 3% 118 ML BOTTLE TP SCH ×2 (07:14→19:17)
[2023-05-02] MEDS: LOSARTAN POTASSIUM 25 MG TABLET GT SCH (08:43)
[2023-05-02] MEDS: ACIDOPHILUS/BULGARICUS CHEW TAB GT SCH ×2 (08:45→21:13)
[2023-05-02] MEDS: METOPROLOL TARTRATE 25 MG TABLET GT SCH ×2 (08:48→21:14)
[2023-05-02] MEDS: CLOPIDOGREL 75 MG TABLET GT SCH (08:49)
[2023-05-02] MEDS: SODIUM CHLORIDE 1,000 MG TABLET GT SCH ×3 (08:49→17:58)
[2023-05-02] MEDS: VITAMINS A AND D 5 GM UD PKT TP SCH ×2 (08:50→21:14)
[2023-05-02] MEDS: diphenhydrAMINE 25 MG/10 ML UDC GT PRN ×2 (08:50→18:12)
[2023-05-02] MEDS: REMEDY ESSENTIAL ZINC PASTE 113 GM TP SCH ×2 (08:50→21:14)
[2023-05-02] MEDS: ATORVASTATIN 20 MG TABLET GT SCH (21:13)
[2023-05-02] MEDS: MULTIVIT, IRON, MIN NO. 8, FA TABLET GT SCH (21:14)
[2023-05-02] MEDS: NUTRISOURCE FIBER 4 GM PACKET GT SCH (21:14)
[2023-05-03] VITALS (8 sets, daily range): TEMP 98.2–98.3; O2SAT 98
[2023-05-03] MEDS: ALBUTEROL SULFATE 2.5 MG/3 ML NEBU NEB SCH ×4 (01:09→19:15)
[2023-05-03] MEDS: OMEPRAZOLE 20 MG CAPSULE.DR GT SCH ×2 (05:09→17:22)
[2023-05-03] MEDS: VITAL AF 1.2 1,000 ML LIQUID GT PRN (05:09)
[2023-05-03] MEDS: BACLOFEN 10 MG TABLET GT SCH ×3 (05:09→22:04)
[2023-05-03] MEDS: HYDROGEN PEROXIDE 3% 118 ML BOTTLE TP SCH ×2 (08:10→19:16)
[2023-05-03] MEDS: CLOPIDOGREL 75 MG TABLET GT SCH (09:44)
[2023-05-03] MEDS: LOSARTAN POTASSIUM 25 MG TABLET GT SCH (09:44)
[2023-05-03] MEDS: REMEDY ESSENTIAL ZINC PASTE 113 GM TP SCH ×2 (09:44→20:31)
[2023-05-03] MEDS: METOPROLOL TARTRATE 25 MG TABLET GT SCH ×2 (09:44→20:31)
[2023-05-03] MEDS: VITAMINS A AND D 5 GM UD PKT TP SCH ×2 (09:44→20:31)
[2023-05-03] MEDS: ACIDOPHILUS/BULGARICUS CHEW TAB GT SCH ×2 (09:44→20:31)
[2023-05-03] MEDS: SODIUM CHLORIDE 1,000 MG TABLET GT SCH ×3 (09:44→17:22)
[2023-05-03] MEDS: NUTRISOURCE FIBER 4 GM PACKET GT SCH (20:31)
[2023-05-03] MEDS: ATORVASTATIN 20 MG TABLET GT SCH (20:31)
[2023-05-04] VITALS (11 sets, daily range): TEMP 97.9–98; O2SAT 97–99
[2023-05-04] MEDS: ALBUTEROL SULFATE 2.5 MG/3 ML NEBU NEB SCH ×4 (01:14→19:25)
[2023-05-04] MEDS: OMEPRAZOLE 20 MG CAPSULE.DR GT SCH ×2 (06:01→17:27)
[2023-05-04] MEDS: VITAL AF 1.2 1,000 ML LIQUID GT PRN (06:01)
[2023-05-04] MEDS: BACLOFEN 10 MG TABLET GT SCH ×3 (06:01→22:02)
[2023-05-04] MEDS: LOSARTAN POTASSIUM 25 MG TABLET GT SCH (08:46)
[2023-05-04] MEDS: ACIDOPHILUS/BULGARICUS CHEW TAB GT SCH ×2 (08:46→21:55)
[2023-05-04] MEDS: SODIUM CHLORIDE 1,000 MG TABLET GT SCH ×3 (08:47→17:27)
[2023-05-04] MEDS: VITAMINS A AND D 5 GM UD PKT TP SCH ×2 (08:47→21:00)
[2023-05-04] MEDS: CLOPIDOGREL 75 MG TABLET GT SCH (08:47)
[2023-05-04] MEDS: METOPROLOL TARTRATE 25 MG TABLET GT SCH ×2 (08:47→21:00)
[2023-05-04] MEDS: REMEDY ESSENTIAL ZINC PASTE 113 GM TP SCH ×2 (08:47→21:00)
[2023-05-04] MEDS: HYDROGEN PEROXIDE 3% 118 ML BOTTLE TP SCH ×2 (09:00→21:03)
[2023-05-04] MEDS: NUTRISOURCE FIBER 4 GM PACKET GT SCH (21:00)
[2023-05-04] MEDS: MULTIVIT, IRON, MIN NO. 8, FA TABLET GT SCH (21:00)
[2023-05-04] MEDS: ATORVASTATIN 20 MG TABLET GT SCH (21:00)
[2023-05-05] VITALS (11 sets, daily range): TEMP 97.7–98.8; O2SAT 97–99
[2023-05-05] MEDS: ALBUTEROL SULFATE 2.5 MG/3 ML NEBU NEB SCH ×4 (02:00→19:09)
[2023-05-05] MEDS: VITAL AF 1.2 1,000 ML LIQUID GT PRN (04:12)
[2023-05-05] MEDS: BACLOFEN 10 MG TABLET GT SCH ×3 (05:41→22:01)
[2023-05-05] MEDS: OMEPRAZOLE 20 MG CAPSULE.DR GT SCH ×2 (05:41→17:15)
[2023-05-05] MEDS: HYDROGEN PEROXIDE 3% 118 ML BOTTLE TP SCH ×2 (07:34→19:09)
[2023-05-05] MEDS: METOPROLOL TARTRATE 25 MG TABLET GT SCH ×2 (08:27→21:00)
[2023-05-05] MEDS: VITAMINS A AND D 5 GM UD PKT TP SCH ×2 (08:27→21:00)
[2023-05-05] MEDS: CLOPIDOGREL 75 MG TABLET GT SCH (08:27)
[2023-05-05] MEDS: SODIUM CHLORIDE 1,000 MG TABLET GT SCH ×3 (08:27→17:15)
[2023-05-05] MEDS: ACIDOPHILUS/BULGARICUS CHEW TAB GT SCH ×2 (08:27→21:00)
[2023-05-05] MEDS: REMEDY ESSENTIAL ZINC PASTE 113 GM TP SCH ×2 (08:27→21:00)
[2023-05-05] MEDS: LOSARTAN POTASSIUM 25 MG TABLET GT SCH (08:27)
[2023-05-05] MEDS: NUTRISOURCE FIBER 4 GM PACKET GT SCH (21:00)
[2023-05-05] MEDS: ATORVASTATIN 20 MG TABLET GT SCH (21:00)
[2023-05-05] MEDS: diphenhydrAMINE 25 MG/10 ML UDC GT PRN (22:00)
[2023-05-06] VITALS (10 sets, daily range): TEMP 97.5–98.3; O2SAT 97–99
[2023-05-06] MEDS: ALBUTEROL SULFATE 2.5 MG/3 ML NEBU NEB SCH ×4 (00:53→19:24)
[2023-05-06] MEDS: VITAL AF 1.2 1,000 ML LIQUID GT PRN (02:45)
[2023-05-06] MEDS: BACLOFEN 10 MG TABLET GT SCH ×3 (05:44→21:23)
[2023-05-06] MEDS: OMEPRAZOLE 20 MG CAPSULE.DR GT SCH ×2 (05:44→17:05)
[2023-05-06] MEDS: HYDROGEN PEROXIDE 3% 118 ML BOTTLE TP SCH ×2 (08:39→19:24)
[2023-05-06] MEDS: LOSARTAN POTASSIUM 25 MG TABLET GT SCH (09:19)
[2023-05-06] MEDS: VITAMINS A AND D 5 GM UD PKT TP SCH ×2 (09:20→21:23)
[2023-05-06] MEDS: REMEDY ESSENTIAL ZINC PASTE 113 GM TP SCH ×2 (09:20→21:22)
[2023-05-06] MEDS: SODIUM CHLORIDE 1,000 MG TABLET GT SCH ×3 (09:20→17:05)
[2023-05-06] MEDS: ACIDOPHILUS/BULGARICUS CHEW TAB GT SCH ×2 (09:20→21:22)
[2023-05-06] MEDS: CLOPIDOGREL 75 MG TABLET GT SCH (09:20)
[2023-05-06] MEDS: METOPROLOL TARTRATE 25 MG TABLET GT SCH ×2 (09:20→21:22)
[2023-05-06] MEDS: NUTRISOURCE FIBER 4 GM PACKET GT SCH (21:22)
[2023-05-06] MEDS: MULTIVIT, IRON, MIN NO. 8, FA TABLET GT SCH (21:22)
[2023-05-06] MEDS: ATORVASTATIN 20 MG TABLET GT SCH (21:22)
[2023-05-07] VITALS (10 sets, daily range): TEMP 97.7–98.2; O2SAT 97–99
[2023-05-07] MEDS: VITAL AF 1.2 1,000 ML LIQUID GT PRN ×2 (00:36→22:07)
[2023-05-07] MEDS: ALBUTEROL SULFATE 2.5 MG/3 ML NEBU NEB SCH ×4 (01:30→19:10)
[2023-05-07] MEDS: BACLOFEN 10 MG TABLET GT SCH ×3 (05:04→21:34)
[2023-05-07] MEDS: OMEPRAZOLE 20 MG CAPSULE.DR GT SCH ×2 (05:04→17:21)
[2023-05-07] MEDS: LOSARTAN POTASSIUM 25 MG TABLET GT SCH (08:29)
[2023-05-07] MEDS: ACIDOPHILUS/BULGARICUS CHEW TAB GT SCH ×2 (08:29→21:33)
[2023-05-07] MEDS: METOPROLOL TARTRATE 25 MG TABLET GT SCH ×2 (08:30→21:33)
[2023-05-07] MEDS: VITAMINS A AND D 5 GM UD PKT TP SCH ×2 (08:30→21:34)
[2023-05-07] MEDS: CLOPIDOGREL 75 MG TABLET GT SCH (08:30)
[2023-05-07] MEDS: REMEDY ESSENTIAL ZINC PASTE 113 GM TP SCH ×2 (08:30→21:34)
[2023-05-07] MEDS: SODIUM CHLORIDE 1,000 MG TABLET GT SCH ×3 (08:30→17:20)
[2023-05-07] MEDS: HYDROGEN PEROXIDE 3% 118 ML BOTTLE TP SCH ×2 (09:33→19:11)
[2023-05-07] MEDS: ATORVASTATIN 20 MG TABLET GT SCH (21:33)
[2023-05-07] MEDS: NUTRISOURCE FIBER 4 GM PACKET GT SCH (21:34)
[2023-05-07] MEDS: diphenhydrAMINE 25 MG/10 ML UDC GT PRN (21:39)
[2023-05-08] VITALS (9 sets, daily range): TEMP 97.8–98.2; O2SAT 96–99
[2023-05-08] MEDS: ALBUTEROL SULFATE 2.5 MG/3 ML NEBU NEB SCH ×4 (02:02→19:26)
[2023-05-08] MEDS: BACLOFEN 10 MG TABLET GT SCH ×3 (05:25→22:37)
[2023-05-08] MEDS: OMEPRAZOLE 20 MG CAPSULE.DR GT SCH ×2 (05:25→17:29)
[2023-05-08] MEDS: HYDROGEN PEROXIDE 3% 118 ML BOTTLE TP SCH ×2 (09:00→19:26)
[2023-05-08] MEDS: ACIDOPHILUS/BULGARICUS CHEW TAB GT SCH ×2 (09:00→20:35)
[2023-05-08] MEDS: LOSARTAN POTASSIUM 25 MG TABLET GT SCH (09:04)
[2023-05-08] MEDS: SODIUM CHLORIDE 1,000 MG TABLET GT SCH ×3 (09:05→17:29)
[2023-05-08] MEDS: VITAMINS A AND D 5 GM UD PKT TP SCH ×2 (09:05→20:35)
[2023-05-08] MEDS: CLOPIDOGREL 75 MG TABLET GT SCH (09:05)
[2023-05-08] MEDS: METOPROLOL TARTRATE 25 MG TABLET GT SCH ×2 (09:05→20:39)
[2023-05-08] MEDS: REMEDY ESSENTIAL ZINC PASTE 113 GM TP SCH ×2 (09:06→20:35)
[2023-05-08] MEDS: NUTRISOURCE FIBER 4 GM PACKET GT SCH (20:35)
[2023-05-08] MEDS: MULTIVIT, IRON, MIN NO. 8, FA TABLET GT SCH (20:36)
[2023-05-08] MEDS: ATORVASTATIN 20 MG TABLET GT SCH (20:39)
[2023-05-09] VITALS (10 sets, daily range): TEMP 97.6–98.3; O2SAT 95–99
[2023-05-09] MEDS: ALBUTEROL SULFATE 2.5 MG/3 ML NEBU NEB SCH ×4 (01:23→19:07)
[2023-05-09] MEDS: BACLOFEN 10 MG TABLET GT SCH ×3 (05:09→21:17)
[2023-05-09] MEDS: OMEPRAZOLE 20 MG CAPSULE.DR GT SCH ×2 (05:09→17:27)
[2023-05-09] MEDS: METOPROLOL TARTRATE 25 MG TABLET GT SCH ×2 (09:00→21:19)
[2023-05-09] MEDS: VITAMINS A AND D 5 GM UD PKT TP SCH ×2 (09:00→21:17)
[2023-05-09] MEDS: SODIUM CHLORIDE 1,000 MG TABLET GT SCH ×3 (09:00→17:23)
[2023-05-09] MEDS: REMEDY ESSENTIAL ZINC PASTE 113 GM TP SCH ×2 (09:00→21:17)
[2023-05-09] MEDS: ACIDOPHILUS/BULGARICUS CHEW TAB GT SCH ×2 (09:00→21:17)
[2023-05-09] MEDS: LOSARTAN POTASSIUM 25 MG TABLET GT SCH (09:00)
[2023-05-09] MEDS: CLOPIDOGREL 75 MG TABLET GT SCH (09:00)
[2023-05-09] MEDS: HYDROGEN PEROXIDE 3% 118 ML BOTTLE TP SCH ×2 (09:34→19:07)
[2023-05-09] MEDS: ATORVASTATIN 20 MG TABLET GT SCH (21:19)
[2023-05-09] MEDS: NUTRISOURCE FIBER 4 GM PACKET GT SCH (21:20)
[2023-05-10] VITALS (10 sets, daily range): TEMP 97.8; O2SAT 97–99
[2023-05-10] MEDS: ALBUTEROL SULFATE 2.5 MG/3 ML NEBU NEB SCH ×4 (00:48→19:48)
[2023-05-10] MEDS: OMEPRAZOLE 20 MG CAPSULE.DR GT SCH ×2 (06:49→17:20)
[2023-05-10] MEDS: BACLOFEN 10 MG TABLET GT SCH ×3 (06:49→22:05)
[2023-05-10] MEDS: HYDROGEN PEROXIDE 3% 118 ML BOTTLE TP SCH ×2 (08:20→19:07)
[2023-05-10] MEDS: SODIUM CHLORIDE 1,000 MG TABLET GT SCH ×3 (09:33→17:20)
[2023-05-10] MEDS: LOSARTAN POTASSIUM 25 MG TABLET GT SCH (09:33)
[2023-05-10] MEDS: METOPROLOL TARTRATE 25 MG TABLET GT SCH ×2 (09:33→21:00)
[2023-05-10] MEDS: ACIDOPHILUS/BULGARICUS CHEW TAB GT SCH ×2 (09:33→20:52)
[2023-05-10] MEDS: VITAMINS A AND D 5 GM UD PKT TP SCH ×2 (09:34→20:52)
[2023-05-10] MEDS: REMEDY ESSENTIAL ZINC PASTE 113 GM TP SCH ×2 (09:34→20:52)
[2023-05-10] MEDS: CLOPIDOGREL 75 MG TABLET GT SCH (09:34)
[2023-05-10] MEDS: diphenhydrAMINE 25 MG/10 ML UDC GT PRN (13:10)
[2023-05-10] MEDS: ACETAMINOPHEN 650 MG/20 ML UDC- SA PATIENTS-PAIN ONLY GT PRN (13:16)
[2023-05-10] MEDS: VITAL AF 1.2 1,000 ML LIQUID GT PRN (13:46)
[2023-05-10] MEDS: ATORVASTATIN 20 MG TABLET GT SCH (20:52)
[2023-05-10] MEDS: MULTIVIT, IRON, MIN NO. 8, FA TABLET GT SCH (20:52)
[2023-05-10] MEDS: NUTRISOURCE FIBER 4 GM PACKET GT SCH (20:52)
[2023-05-11] VITALS (10 sets, daily range): TEMP 97.5–98.8; O2SAT 97–99
[2023-05-11] MEDS: ALBUTEROL SULFATE 2.5 MG/3 ML NEBU NEB SCH ×4 (00:52→19:17)
[2023-05-11] MEDS: OMEPRAZOLE 20 MG CAPSULE.DR GT SCH ×2 (05:08→17:28)
[2023-05-11] MEDS: BACLOFEN 10 MG TABLET GT SCH ×3 (05:08→21:28)
[2023-05-11] MEDS: HYDROGEN PEROXIDE 3% 118 ML BOTTLE TP SCH ×2 (07:20→19:17)
[2023-05-11] MEDS: LOSARTAN POTASSIUM 25 MG TABLET GT SCH (08:23)
[2023-05-11] MEDS: ACIDOPHILUS/BULGARICUS CHEW TAB GT SCH ×2 (08:24→21:27)
[2023-05-11] MEDS: METOPROLOL TARTRATE 25 MG TABLET GT SCH ×2 (08:24→21:28)
[2023-05-11] MEDS: REMEDY ESSENTIAL ZINC PASTE 113 GM TP SCH ×2 (08:26→21:28)
[2023-05-11] MEDS: CLOPIDOGREL 75 MG TABLET GT SCH (08:26)
[2023-05-11] MEDS: SODIUM CHLORIDE 1,000 MG TABLET GT SCH ×3 (08:26→17:22)
[2023-05-11] MEDS: VITAMINS A AND D 5 GM UD PKT TP SCH ×2 (08:26→21:28)
[2023-05-11] MEDS: VITAL AF 1.2 1,000 ML LIQUID GT PRN (13:26)
[2023-05-11] MEDS: ATORVASTATIN 20 MG TABLET GT SCH (21:27)
[2023-05-11] MEDS: NUTRISOURCE FIBER 4 GM PACKET GT SCH (21:28)
[2023-05-12] VITALS (10 sets, daily range): TEMP 97.6; O2SAT 98–99
[2023-05-12] MEDS: ALBUTEROL SULFATE 2.5 MG/3 ML NEBU NEB SCH ×4 (01:23→19:30)
[2023-05-12] MEDS: OMEPRAZOLE 20 MG CAPSULE.DR GT SCH ×2 (06:10→17:26)
[2023-05-12] MEDS: BACLOFEN 10 MG TABLET GT SCH ×3 (06:10→21:17)
[2023-05-12] MEDS: HYDROGEN PEROXIDE 3% 118 ML BOTTLE TP SCH ×2 (07:44→21:02)
[2023-05-12] MEDS: LOSARTAN POTASSIUM 25 MG TABLET GT SCH (08:35)
[2023-05-12] MEDS: ACIDOPHILUS/BULGARICUS CHEW TAB GT SCH ×2 (08:35→21:13)
[2023-05-12] MEDS: REMEDY ESSENTIAL ZINC PASTE 113 GM TP SCH ×2 (08:37→21:17)
[2023-05-12] MEDS: METOPROLOL TARTRATE 25 MG TABLET GT SCH ×2 (08:37→21:16)
[2023-05-12] MEDS: VITAMINS A AND D 5 GM UD PKT TP SCH ×2 (08:37→21:17)
[2023-05-12] MEDS: SODIUM CHLORIDE 1,000 MG TABLET GT SCH ×3 (08:37→17:26)
[2023-05-12] MEDS: CLOPIDOGREL 75 MG TABLET GT SCH (08:39)
[2023-05-12] MEDS: ATORVASTATIN 20 MG TABLET GT SCH (21:13)
[2023-05-12] MEDS: NUTRISOURCE FIBER 4 GM PACKET GT SCH (21:16)
[2023-05-12] MEDS: MULTIVIT, IRON, MIN NO. 8, FA TABLET GT SCH (21:16)
[2023-05-13] VITALS (10 sets, daily range): TEMP 97.2–97.6; O2SAT 98–99
[2023-05-13] MEDS: ALBUTEROL SULFATE 2.5 MG/3 ML NEBU NEB SCH ×4 (01:50→19:47)
[2023-05-13] MEDS: BACLOFEN 10 MG TABLET GT SCH ×3 (05:39→21:34)
[2023-05-13] MEDS: OMEPRAZOLE 20 MG CAPSULE.DR GT SCH ×2 (05:39→18:33)
[2023-05-13] MEDS: HYDROGEN PEROXIDE 3% 118 ML BOTTLE TP SCH ×2 (07:40→19:47)
[2023-05-13] MEDS: LOSARTAN POTASSIUM 25 MG TABLET GT SCH (08:50)
[2023-05-13] MEDS: ACIDOPHILUS/BULGARICUS CHEW TAB GT SCH ×2 (08:50→21:27)
[2023-05-13] MEDS: METOPROLOL TARTRATE 25 MG TABLET GT SCH ×2 (08:52→21:00)
[2023-05-13] MEDS: SODIUM CHLORIDE 1,000 MG TABLET GT SCH ×3 (08:52→17:00)
[2023-05-13] MEDS: VITAMINS A AND D 5 GM UD PKT TP SCH ×2 (08:53→21:29)
[2023-05-13] MEDS: CLOPIDOGREL 75 MG TABLET GT SCH (08:53)
[2023-05-13] MEDS: REMEDY ESSENTIAL ZINC PASTE 113 GM TP SCH ×2 (08:53→21:29)
[2023-05-13] MEDS: VITAL AF 1.2 1,000 ML LIQUID GT PRN (13:09)
[2023-05-13] MEDS: ACETAMINOPHEN 650 MG/20 ML UDC- SA PATIENTS-PAIN ONLY GT PRN ×2 (13:09→21:33)
[2023-05-13] MEDS: NUTRISOURCE FIBER 4 GM PACKET GT SCH (21:28)
[2023-05-13] MEDS: ATORVASTATIN 20 MG TABLET GT SCH (21:33)
[2023-05-14] VITALS (10 sets, daily range): TEMP 97.6–97.9; O2SAT 96–99
[2023-05-14] MEDS: ALBUTEROL SULFATE 2.5 MG/3 ML NEBU NEB SCH ×4 (00:58→20:01)
[2023-05-14] MEDS: ACETAMINOPHEN 650 MG/20 ML UDC- SA PATIENTS-PAIN ONLY GT PRN ×2 (03:55→13:10)
[2023-05-14] MEDS: BACLOFEN 10 MG TABLET GT SCH ×3 (05:40→21:05)
[2023-05-14] MEDS: OMEPRAZOLE 20 MG CAPSULE.DR GT SCH ×2 (05:40→17:36)
[2023-05-14] MEDS: HYDROGEN PEROXIDE 3% 118 ML BOTTLE TP SCH ×2 (08:29→19:12)
[2023-05-14] MEDS: REMEDY ESSENTIAL ZINC PASTE 113 GM TP SCH ×2 (08:58→20:54)
[2023-05-14] MEDS: CLOPIDOGREL 75 MG TABLET GT SCH (08:58)
[2023-05-14] MEDS: LOSARTAN POTASSIUM 25 MG TABLET GT SCH (08:58)
[2023-05-14] MEDS: VITAMINS A AND D 5 GM UD PKT TP SCH ×2 (08:58→20:54)
[2023-05-14] MEDS: METOPROLOL TARTRATE 25 MG TABLET GT SCH ×2 (08:58→21:05)
[2023-05-14] MEDS: SODIUM CHLORIDE 1,000 MG TABLET GT SCH ×3 (08:58→17:36)
[2023-05-14] MEDS: ACIDOPHILUS/BULGARICUS CHEW TAB GT SCH ×2 (08:58→20:54)
[2023-05-14] MEDS: diphenhydrAMINE 25 MG/10 ML UDC GT PRN (10:07)
[2023-05-14] MEDS: VITAL AF 1.2 1,000 ML LIQUID GT PRN (13:09)
[2023-05-14] MEDS: MULTIVIT, IRON, MIN NO. 8, FA TABLET GT SCH (20:54)
[2023-05-14] MEDS: NUTRISOURCE FIBER 4 GM PACKET GT SCH (20:54)
[2023-05-14] MEDS: ATORVASTATIN 20 MG TABLET GT SCH (21:00)
[2023-05-15] VITALS (10 sets, daily range): TEMP 97.8–98.1; O2SAT 98–99
[2023-05-15] MEDS: diphenhydrAMINE 25 MG/10 ML UDC GT PRN ×2 (00:59→21:25)
[2023-05-15] MEDS: ALBUTEROL SULFATE 2.5 MG/3 ML NEBU NEB SCH ×4 (01:06→19:31)
[2023-05-15] MEDS: BACLOFEN 10 MG TABLET GT SCH ×3 (05:49→21:25)
[2023-05-15] MEDS: OMEPRAZOLE 20 MG CAPSULE.DR GT SCH ×2 (05:49→18:08)
[2023-05-15] MEDS: HYDROGEN PEROXIDE 3% 118 ML BOTTLE TP SCH ×2 (07:08→19:06)
[2023-05-15] MEDS: ACIDOPHILUS/BULGARICUS CHEW TAB GT SCH ×2 (08:46→21:24)
[2023-05-15] MEDS: LOSARTAN POTASSIUM 25 MG TABLET GT SCH (08:46)
[2023-05-15] MEDS: SODIUM CHLORIDE 1,000 MG TABLET GT SCH ×3 (08:47→17:00)
[2023-05-15] MEDS: METOPROLOL TARTRATE 25 MG TABLET GT SCH ×2 (08:47→21:25)
[2023-05-15] MEDS: VITAMINS A AND D 5 GM UD PKT TP SCH ×2 (08:47→21:25)
[2023-05-15] MEDS: REMEDY ESSENTIAL ZINC PASTE 113 GM TP SCH ×2 (08:47→21:25)
[2023-05-15] MEDS: CLOPIDOGREL 75 MG TABLET GT SCH (08:47)
[2023-05-15] MEDS: VITAL AF 1.2 1,000 ML LIQUID GT PRN (13:48)
[2023-05-15] MEDS: ATORVASTATIN 20 MG TABLET GT SCH (21:25)
[2023-05-15] MEDS: NUTRISOURCE FIBER 4 GM PACKET GT SCH (21:25)
[2023-05-16] VITALS (10 sets, daily range): TEMP 97.6; O2SAT 97–99
[2023-05-16] MEDS: ALBUTEROL SULFATE 2.5 MG/3 ML NEBU NEB SCH ×4 (00:55→19:11)
[2023-05-16] MEDS: OMEPRAZOLE 20 MG CAPSULE.DR GT SCH ×2 (05:11→17:07)
[2023-05-16] MEDS: BACLOFEN 10 MG TABLET GT SCH ×3 (05:11→21:43)
[2023-05-16] MEDS: HYDROGEN PEROXIDE 3% 118 ML BOTTLE TP SCH ×2 (07:23→19:11)
[2023-05-16] MEDS: ACIDOPHILUS/BULGARICUS CHEW TAB GT SCH ×2 (09:49→21:42)
[2023-05-16] MEDS: METOPROLOL TARTRATE 25 MG TABLET GT SCH ×2 (09:53→21:43)
[2023-05-16] MEDS: LOSARTAN POTASSIUM 25 MG TABLET GT SCH (09:53)
[2023-05-16] MEDS: REMEDY ESSENTIAL ZINC PASTE 113 GM TP SCH ×2 (09:55→21:43)
[2023-05-16] MEDS: CLOPIDOGREL 75 MG TABLET GT SCH (09:55)
[2023-05-16] MEDS: VITAMINS A AND D 5 GM UD PKT TP SCH ×2 (09:55→21:43)
[2023-05-16] MEDS: SODIUM CHLORIDE 1,000 MG TABLET GT SCH ×3 (09:55→17:06)
[2023-05-16] MEDS: diphenhydrAMINE 25 MG/10 ML UDC GT PRN ×2 (09:56→17:08)
[2023-05-16] MEDS: VITAL AF 1.2 1,000 ML LIQUID GT PRN (14:01)
[2023-05-16] MEDS: ATORVASTATIN 20 MG TABLET GT SCH (21:42)
[2023-05-16] MEDS: NUTRISOURCE FIBER 4 GM PACKET GT SCH (21:43)
[2023-05-16] MEDS: MULTIVIT, IRON, MIN NO. 8, FA TABLET GT SCH (21:43)
[2023-05-17] VITALS (10 sets, daily range): TEMP 97.3–97.6; O2SAT 97–99
[2023-05-17] MEDS: ALBUTEROL SULFATE 2.5 MG/3 ML NEBU NEB SCH ×4 (01:11→19:07)
[2023-05-17] MEDS: BACLOFEN 10 MG TABLET GT SCH ×3 (05:51→21:17)
[2023-05-17] MEDS: OMEPRAZOLE 20 MG CAPSULE.DR GT SCH ×2 (05:51→17:15)
[2023-05-17] MEDS: HYDROGEN PEROXIDE 3% 118 ML BOTTLE TP SCH ×2 (07:28→19:07)
[2023-05-17] MEDS: METOPROLOL TARTRATE 25 MG TABLET GT SCH ×2 (09:00→21:17)
[2023-05-17] MEDS: LOSARTAN POTASSIUM 25 MG TABLET GT SCH (09:45)
[2023-05-17] MEDS: ACIDOPHILUS/BULGARICUS CHEW TAB GT SCH ×2 (09:45→21:17)
[2023-05-17] MEDS: REMEDY ESSENTIAL ZINC PASTE 113 GM TP SCH ×2 (09:46→21:17)
[2023-05-17] MEDS: VITAMINS A AND D 5 GM UD PKT TP SCH ×2 (09:46→21:17)
[2023-05-17] MEDS: SODIUM CHLORIDE 1,000 MG TABLET GT SCH ×3 (09:46→17:15)
[2023-05-17] MEDS: NEOMY/BACITRA/POLYMYXIN B OINT UD PACKET TP SCH ×2 (09:46→21:17)
[2023-05-17] MEDS: CLOPIDOGREL 75 MG TABLET GT SCH (09:46)
[2023-05-17] MEDS: VITAL AF 1.2 1,000 ML LIQUID GT PRN (17:15)
[2023-05-17] MEDS: NUTRISOURCE FIBER 4 GM PACKET GT SCH (21:17)
[2023-05-17] MEDS: ATORVASTATIN 20 MG TABLET GT SCH (21:17)
[2023-05-18] VITALS (10 sets, daily range): TEMP 98.1; O2SAT 97–99
[2023-05-18] MEDS: ALBUTEROL SULFATE 2.5 MG/3 ML NEBU NEB SCH ×4 (02:09→19:43)
[2023-05-18] MEDS: OMEPRAZOLE 20 MG CAPSULE.DR GT SCH ×2 (05:49→17:11)
[2023-05-18] MEDS: BACLOFEN 10 MG TABLET GT SCH ×3 (05:49→21:27)
[2023-05-18] MEDS: LOSARTAN POTASSIUM 25 MG TABLET GT SCH (08:42)
[2023-05-18] MEDS: ACIDOPHILUS/BULGARICUS CHEW TAB GT SCH ×2 (08:42→21:26)
[2023-05-18] MEDS: METOPROLOL TARTRATE 25 MG TABLET GT SCH ×2 (08:43→21:26)
[2023-05-18] MEDS: SODIUM CHLORIDE 1,000 MG TABLET GT SCH ×3 (08:45→16:10)
[2023-05-18] MEDS: CLOPIDOGREL 75 MG TABLET GT SCH (08:45)
[2023-05-18] MEDS: NEOMY/BACITRA/POLYMYXIN B OINT UD PACKET TP SCH ×2 (08:48→21:27)
[2023-05-18] MEDS: REMEDY ESSENTIAL ZINC PASTE 113 GM TP SCH ×2 (08:48→21:27)
[2023-05-18] MEDS: VITAMINS A AND D 5 GM UD PKT TP SCH ×2 (08:48→21:27)
[2023-05-18] MEDS: diphenhydrAMINE 25 MG/10 ML UDC GT PRN (08:49)
[2023-05-18] MEDS: HYDROGEN PEROXIDE 3% 118 ML BOTTLE TP SCH ×2 (09:00→19:12)
[2023-05-18] MEDS: VITAL AF 1.2 1,000 ML LIQUID GT PRN (16:05)
[2023-05-18] MEDS: ATORVASTATIN 20 MG TABLET GT SCH (21:26)
[2023-05-18] MEDS: MULTIVIT, IRON, MIN NO. 8, FA TABLET GT SCH (21:27)
[2023-05-18] MEDS: NUTRISOURCE FIBER 4 GM PACKET GT SCH (21:27)
[2023-05-19] VITALS (10 sets, daily range): TEMP 96.8–97.6; O2SAT 97–98
[2023-05-19] MEDS: ALBUTEROL SULFATE 2.5 MG/3 ML NEBU NEB SCH ×4 (01:01→19:13)
[2023-05-19] MEDS: BACLOFEN 10 MG TABLET GT SCH ×3 (05:56→21:11)
[2023-05-19] MEDS: OMEPRAZOLE 20 MG CAPSULE.DR GT SCH ×2 (05:57→17:14)
[2023-05-19] MEDS: HYDROGEN PEROXIDE 3% 118 ML BOTTLE TP SCH ×2 (08:18→19:13)
[2023-05-19] MEDS: ACIDOPHILUS/BULGARICUS CHEW TAB GT SCH ×2 (09:46→21:11)
[2023-05-19] MEDS: LOSARTAN POTASSIUM 25 MG TABLET GT SCH (09:46)
[2023-05-19] MEDS: REMEDY ESSENTIAL ZINC PASTE 113 GM TP SCH ×2 (09:47→21:11)
[2023-05-19] MEDS: CLOPIDOGREL 75 MG TABLET GT SCH (09:47)
[2023-05-19] MEDS: SODIUM CHLORIDE 1,000 MG TABLET GT SCH ×3 (09:47→17:14)
[2023-05-19] MEDS: VITAMINS A AND D 5 GM UD PKT TP SCH ×2 (09:47→21:11)
[2023-05-19] MEDS: NEOMY/BACITRA/POLYMYXIN B OINT UD PACKET TP SCH ×2 (09:47→21:11)
[2023-05-19] MEDS: METOPROLOL TARTRATE 25 MG TABLET GT SCH ×2 (09:47→21:11)
[2023-05-19] MEDS: ATORVASTATIN 20 MG TABLET GT SCH (21:11)
[2023-05-19] MEDS: NUTRISOURCE FIBER 4 GM PACKET GT SCH (21:11)
[2023-05-20] VITALS (10 sets, daily range): TEMP 96.2–97.5; O2SAT 98–99
[2023-05-20] MEDS: ALBUTEROL SULFATE 2.5 MG/3 ML NEBU NEB SCH ×4 (01:51→19:30)
[2023-05-20 06:09] LABS: BASOPHILS % (AUTO) 0.7 % (0.0-2.0); EOSINOPHILS # (AUTO) 0.5 K/uL (0.0-0.7); EOSINOPHILS % (AUTO) 7.8 % (0.0-7.0); HEMATOCRIT 37.9 % (36.7-47.1); HEMOGLOBIN 12.9 g/dL (12.5-16.3); LYMPHOCYTES # (AUTO) 1.5 K/uL (0.8-4.8); LYMPHOCYTES % (AUTO) 23.6 % (20.5-51.5); MEAN CORPUSCULAR HGB CONC 34 g/dL (32.5-36.3); MEAN CORPUSCULAR VOLUME 94.1 fL (73.0-96.2); MONOCYTES # (AUTO) 0.4 K/uL (0.1-1.30); MONOCYTES % (AUTO) 6.1 % (0.0-11.0); NEUTROPHILS # (AUTO) 3.8 K/uL (1.8-8.9); NEUTROPHILS % (AUTO) 61.8 % (38.5-71.5); PLATELET COUNT (AUTO) 215 K/uL (152-348); RED BLOOD CELL COUNT(AUTO) 4.02 MIL/uL (4.06-5.63); RED CELL DISTRIBUTION WIDTH 13.1 % (12.1-16.2); WHITE BLOOD COUNT (AUTO) 6.2 K/uL (3.6-10.2)
[2023-05-20] MEDS: BACLOFEN 10 MG TABLET GT SCH ×3 (06:10→21:21)
[2023-05-20] MEDS: OMEPRAZOLE 20 MG CAPSULE.DR GT SCH ×2 (06:10→17:15)
[2023-05-20 07:06] LABS: CALCIUM 9.1 mg/dL (8.5-10.1); CARBON DIOXIDE 27 mmol/L (21-32); CHLORIDE 103 mmol/L (98-107); CREATININE 0.6 mg/dL (0.6-1.3); GLUCOSE 114 mg/dL (74-106); MAGNESIUM 2.1 mg/dL (1.8-2.4); PHOSPHOROUS 2.9 mg/dL (2.5-4.9); POTASSIUM 3.9 mmol/L (3.5-5.1); SODIUM SERUM 137 mmol/L (136-145); UREA NITROGEN, BLOOD 25 mg/dL (7-18)
[2023-05-20 07:22] LABS: DIFFERENTIAL COMMENT 1
[2023-05-20] MEDS: HYDROGEN PEROXIDE 3% 118 ML BOTTLE TP SCH ×2 (07:29→19:30)
[2023-05-20] MEDS: VITAMINS A AND D 5 GM UD PKT TP SCH ×2 (08:45→21:19)
[2023-05-20] MEDS: ACIDOPHILUS/BULGARICUS CHEW TAB GT SCH ×2 (08:45→21:26)
[2023-05-20] MEDS: REMEDY ESSENTIAL ZINC PASTE 113 GM TP SCH ×2 (08:45→21:19)
[2023-05-20] MEDS: NEOMY/BACITRA/POLYMYXIN B OINT UD PACKET TP SCH ×2 (08:45→21:19)
[2023-05-20] MEDS: SODIUM CHLORIDE 1,000 MG TABLET GT SCH ×3 (08:45→17:15)
[2023-05-20] MEDS: CLOPIDOGREL 75 MG TABLET GT SCH (08:45)
[2023-05-20] MEDS: METOPROLOL TARTRATE 25 MG TABLET GT SCH ×2 (08:45→21:26)
[2023-05-20] MEDS: LOSARTAN POTASSIUM 25 MG TABLET GT SCH (08:45)
[2023-05-20] MEDS: NUTRISOURCE FIBER 4 GM PACKET GT SCH (21:18)
[2023-05-20] MEDS: MULTIVIT, IRON, MIN NO. 8, FA TABLET GT SCH (21:19)
[2023-05-20] MEDS: ATORVASTATIN 20 MG TABLET GT SCH (21:26)
[2023-05-20] MEDS: diphenhydrAMINE 25 MG/10 ML UDC GT PRN (23:53)
[2023-05-21] VITALS (10 sets, daily range): TEMP 96.5–97.6; O2SAT 98–99
[2023-05-21] MEDS: ALBUTEROL SULFATE 2.5 MG/3 ML NEBU NEB SCH ×4 (01:32→19:24)
[2023-05-21] MEDS: OMEPRAZOLE 20 MG CAPSULE.DR GT SCH ×2 (05:37→17:36)
[2023-05-21] MEDS: BACLOFEN 10 MG TABLET GT SCH ×3 (05:37→21:51)
[2023-05-21] MEDS: HYDROGEN PEROXIDE 3% 118 ML BOTTLE TP SCH ×2 (07:32→19:24)
[2023-05-21] MEDS: LOSARTAN POTASSIUM 25 MG TABLET GT SCH (08:56)
[2023-05-21] MEDS: ACIDOPHILUS/BULGARICUS CHEW TAB GT SCH ×2 (08:56→21:48)
[2023-05-21] MEDS: METOPROLOL TARTRATE 25 MG TABLET GT SCH ×2 (08:57→21:49)
[2023-05-21] MEDS: CLOPIDOGREL 75 MG TABLET GT SCH (08:58)
[2023-05-21] MEDS: VITAMINS A AND D 5 GM UD PKT TP SCH ×2 (08:58→21:49)
[2023-05-21] MEDS: NEOMY/BACITRA/POLYMYXIN B OINT UD PACKET TP SCH ×2 (08:58→21:49)
[2023-05-21] MEDS: REMEDY ESSENTIAL ZINC PASTE 113 GM TP SCH ×2 (08:58→21:52)
[2023-05-21] MEDS: SODIUM CHLORIDE 1,000 MG TABLET GT SCH ×3 (08:58→17:36)
[2023-05-21] MEDS: ATORVASTATIN 20 MG TABLET GT SCH (21:48)
[2023-05-21] MEDS: NUTRISOURCE FIBER 4 GM PACKET GT SCH (21:49)
[2023-05-21] MEDS: diphenhydrAMINE 25 MG/10 ML UDC GT PRN (21:51)
[2023-05-22] VITALS (10 sets, daily range): TEMP 98.4–98.5; O2SAT 97–99
[2023-05-22] MEDS: ALBUTEROL SULFATE 2.5 MG/3 ML NEBU NEB SCH ×4 (01:54→19:08)
[2023-05-22] MEDS: BACLOFEN 10 MG TABLET GT SCH ×3 (06:16→21:08)
[2023-05-22] MEDS: OMEPRAZOLE 20 MG CAPSULE.DR GT SCH ×2 (06:16→17:45)
[2023-05-22] MEDS: LOSARTAN POTASSIUM 25 MG TABLET GT SCH (09:29)
[2023-05-22] MEDS: ACIDOPHILUS/BULGARICUS CHEW TAB GT SCH ×2 (09:29→21:04)
[2023-05-22] MEDS: NEOMY/BACITRA/POLYMYXIN B OINT UD PACKET TP SCH ×2 (09:30→21:03)
[2023-05-22] MEDS: REMEDY ESSENTIAL ZINC PASTE 113 GM TP SCH ×2 (09:30→21:04)
[2023-05-22] MEDS: CLOPIDOGREL 75 MG TABLET GT SCH (09:30)
[2023-05-22] MEDS: SODIUM CHLORIDE 1,000 MG TABLET GT SCH ×3 (09:30→17:45)
[2023-05-22] MEDS: METOPROLOL TARTRATE 25 MG TABLET GT SCH ×2 (09:30→21:07)
[2023-05-22] MEDS: VITAMINS A AND D 5 GM UD PKT TP SCH ×2 (09:30→21:03)
[2023-05-22] MEDS: HYDROGEN PEROXIDE 3% 118 ML BOTTLE TP SCH ×2 (09:48→19:08)
[2023-05-22] MEDS ORDERED: TUBERCULIN,PURIF.PROT.DERIV. 5 TU/0.1 ML TEST ID SCH (12:00)
[2023-05-22] MEDS: NUTRISOURCE FIBER 4 GM PACKET GT SCH (21:04)
[2023-05-22] MEDS: MULTIVIT, IRON, MIN NO. 8, FA TABLET GT SCH (21:04)
[2023-05-22] MEDS: ATORVASTATIN 20 MG TABLET GT SCH (21:07)
[2023-05-22] MEDS: diphenhydrAMINE 25 MG/10 ML UDC GT PRN (21:15)
[2023-05-23] VITALS (10 sets, daily range): TEMP 97.6–98.4; O2SAT 98–99
[2023-05-23] MEDS: ALBUTEROL SULFATE 2.5 MG/3 ML NEBU NEB SCH ×4 (00:31→19:18)
[2023-05-23] MEDS: OMEPRAZOLE 20 MG CAPSULE.DR GT SCH ×2 (05:10→17:14)
[2023-05-23] MEDS: BACLOFEN 10 MG TABLET GT SCH ×3 (05:10→21:03)
[2023-05-23] MEDS: HYDROGEN PEROXIDE 3% 118 ML BOTTLE TP SCH ×2 (07:45→19:19)
[2023-05-23] MEDS: LOSARTAN POTASSIUM 25 MG TABLET GT SCH (08:22)
[2023-05-23] MEDS: METOPROLOL TARTRATE 25 MG TABLET GT SCH ×2 (08:23→21:04)
[2023-05-23] MEDS: ACIDOPHILUS/BULGARICUS CHEW TAB GT SCH ×2 (08:23→21:01)
[2023-05-23] MEDS: NEOMY/BACITRA/POLYMYXIN B OINT UD PACKET TP SCH ×2 (08:24→21:03)
[2023-05-23] MEDS: VITAMINS A AND D 5 GM UD PKT TP SCH ×2 (08:24→21:03)
[2023-05-23] MEDS: SODIUM CHLORIDE 1,000 MG TABLET GT SCH ×3 (08:24→17:13)
[2023-05-23] MEDS: REMEDY ESSENTIAL ZINC PASTE 113 GM TP SCH ×2 (08:24→21:03)
[2023-05-23] MEDS: CLOPIDOGREL 75 MG TABLET GT SCH (08:26)
[2023-05-23] MEDS: diphenhydrAMINE 25 MG/10 ML UDC GT PRN (08:27)
[2023-05-23] MEDS: VITAL AF 1.2 1,000 ML LIQUID GT PRN (17:14)
[2023-05-23] MEDS: NUTRISOURCE FIBER 4 GM PACKET GT SCH (21:02)
[2023-05-23] MEDS: ATORVASTATIN 20 MG TABLET GT SCH (21:04)
[2023-05-24] VITALS (10 sets, daily range): TEMP 97.6–98.3; O2SAT 98–99
[2023-05-24] MEDS: ALBUTEROL SULFATE 2.5 MG/3 ML NEBU NEB SCH ×4 (00:41→19:05)
[2023-05-24] MEDS: BACLOFEN 10 MG TABLET GT SCH ×3 (05:30→22:31)
[2023-05-24] MEDS: OMEPRAZOLE 20 MG CAPSULE.DR GT SCH ×2 (05:31→18:10)
[2023-05-24] MEDS: HYDROGEN PEROXIDE 3% 118 ML BOTTLE TP SCH ×2 (07:23→19:05)
[2023-05-24] MEDS: METOPROLOL TARTRATE 25 MG TABLET GT SCH ×2 (09:00→21:00)
[2023-05-24] MEDS: LOSARTAN POTASSIUM 25 MG TABLET GT SCH (09:40)
[2023-05-24] MEDS: ACIDOPHILUS/BULGARICUS CHEW TAB GT SCH ×2 (09:41→21:00)
[2023-05-24] MEDS: REMEDY ESSENTIAL ZINC PASTE 113 GM TP SCH ×2 (09:42→21:00)
[2023-05-24] MEDS: NEOMY/BACITRA/POLYMYXIN B OINT UD PACKET TP SCH ×2 (09:42→21:00)
[2023-05-24] MEDS: SODIUM CHLORIDE 1,000 MG TABLET GT SCH ×3 (09:42→17:00)
[2023-05-24] MEDS: VITAMINS A AND D 5 GM UD PKT TP SCH ×2 (09:42→21:00)
[2023-05-24] MEDS: CLOPIDOGREL 75 MG TABLET GT SCH (09:42)
[2023-05-24] MEDS ORDERED: TUBERCULIN,PURIF.PROT.DERIV. 5 TU/0.1 ML TEST ID ONE (14:00)
[2023-05-24] MEDS: VITAL AF 1.2 1,000 ML LIQUID GT PRN (15:07)
[2023-05-24] MEDS: MULTIVIT, IRON, MIN NO. 8, FA TABLET GT SCH (21:00)
[2023-05-24] MEDS: ATORVASTATIN 20 MG TABLET GT SCH (21:00)
[2023-05-24] MEDS: NUTRISOURCE FIBER 4 GM PACKET GT SCH (21:00)
[2023-05-25] VITALS (9 sets, daily range): TEMP 98; O2SAT 97–99
[2023-05-25] MEDS: ALBUTEROL SULFATE 2.5 MG/3 ML NEBU NEB SCH ×4 (00:52→20:21)
[2023-05-25] MEDS: BACLOFEN 10 MG TABLET GT SCH ×3 (05:01→21:09)
[2023-05-25] MEDS: diphenhydrAMINE 25 MG/10 ML UDC GT PRN (05:01)
[2023-05-25] MEDS: OMEPRAZOLE 20 MG CAPSULE.DR GT SCH ×2 (05:01→18:35)
[2023-05-25] MEDS: LOSARTAN POTASSIUM 25 MG TABLET GT SCH (08:51)
[2023-05-25] MEDS: ACIDOPHILUS/BULGARICUS CHEW TAB GT SCH ×2 (08:51→21:07)
[2023-05-25] MEDS: CLOPIDOGREL 75 MG TABLET GT SCH (08:52)
[2023-05-25] MEDS: METOPROLOL TARTRATE 25 MG TABLET GT SCH ×2 (08:52→21:08)
[2023-05-25] MEDS: SODIUM CHLORIDE 1,000 MG TABLET GT SCH ×3 (08:52→16:15)
[2023-05-25] MEDS: VITAMINS A AND D 5 GM UD PKT TP SCH ×2 (08:52→21:08)
[2023-05-25] MEDS: REMEDY ESSENTIAL ZINC PASTE 113 GM TP SCH ×2 (08:52→21:08)
[2023-05-25] MEDS: NEOMY/BACITRA/POLYMYXIN B OINT UD PACKET TP SCH ×2 (08:52→21:08)
[2023-05-25] MEDS: HYDROGEN PEROXIDE 3% 118 ML BOTTLE TP SCH ×2 (09:00→20:21)
[2023-05-25] MEDS: VITAL AF 1.2 1,000 ML LIQUID GT PRN (16:16)
[2023-05-25] MEDS: ATORVASTATIN 20 MG TABLET GT SCH (21:07)
[2023-05-25] MEDS: NUTRISOURCE FIBER 4 GM PACKET GT SCH (21:08)
[2023-05-26] VITALS (10 sets, daily range): TEMP 97–97.4; O2SAT 96–99
[2023-05-26] MEDS: ALBUTEROL SULFATE 2.5 MG/3 ML NEBU NEB SCH ×4 (01:19→19:14)
[2023-05-26] MEDS: BACLOFEN 10 MG TABLET GT SCH ×3 (06:33→21:15)
[2023-05-26] MEDS: OMEPRAZOLE 20 MG CAPSULE.DR GT SCH ×2 (06:33→17:29)
[2023-05-26] MEDS: ACIDOPHILUS/BULGARICUS CHEW TAB GT SCH ×2 (08:33→21:15)
[2023-05-26] MEDS: NEOMY/BACITRA/POLYMYXIN B OINT UD PACKET TP SCH ×2 (08:35→21:15)
[2023-05-26] MEDS: REMEDY ESSENTIAL ZINC PASTE 113 GM TP SCH ×2 (08:35→21:15)
[2023-05-26] MEDS: VITAMINS A AND D 5 GM UD PKT TP SCH ×2 (08:36→21:15)
[2023-05-26] MEDS: LOSARTAN POTASSIUM 25 MG TABLET GT SCH (08:41)
[2023-05-26] MEDS: METOPROLOL TARTRATE 25 MG TABLET GT SCH ×2 (08:42→21:15)
[2023-05-26] MEDS: SODIUM CHLORIDE 1,000 MG TABLET GT SCH ×3 (08:42→17:29)
[2023-05-26] MEDS: CLOPIDOGREL 75 MG TABLET GT SCH (08:43)
[2023-05-26] MEDS: HYDROGEN PEROXIDE 3% 118 ML BOTTLE TP SCH ×2 (09:58→19:14)
[2023-05-26] MEDS: VITAL AF 1.2 1,000 ML LIQUID GT PRN (13:37)
[2023-05-26] MEDS: MULTIVIT, IRON, MIN NO. 8, FA TABLET GT SCH (21:15)
[2023-05-26] MEDS: NUTRISOURCE FIBER 4 GM PACKET GT SCH (21:15)
[2023-05-26] MEDS: ATORVASTATIN 20 MG TABLET GT SCH (21:15)
[2023-05-27] VITALS (10 sets, daily range): TEMP 97.2–97.6; O2SAT 98–99
[2023-05-27] MEDS: ALBUTEROL SULFATE 2.5 MG/3 ML NEBU NEB SCH ×4 (01:30→19:14)
[2023-05-27] MEDS: OMEPRAZOLE 20 MG CAPSULE.DR GT SCH ×2 (05:37→17:29)
[2023-05-27] MEDS: BACLOFEN 10 MG TABLET GT SCH ×3 (05:37→21:09)
[2023-05-27] MEDS: HYDROGEN PEROXIDE 3% 118 ML BOTTLE TP SCH ×2 (07:21→19:14)
[2023-05-27] MEDS: ACIDOPHILUS/BULGARICUS CHEW TAB GT SCH ×2 (09:09→21:08)
[2023-05-27] MEDS: REMEDY ESSENTIAL ZINC PASTE 113 GM TP SCH ×2 (09:14→21:08)
[2023-05-27] MEDS: NEOMY/BACITRA/POLYMYXIN B OINT UD PACKET TP SCH ×2 (09:15→21:08)
[2023-05-27] MEDS: VITAMINS A AND D 5 GM UD PKT TP SCH ×2 (09:15→21:09)
[2023-05-27] MEDS: LOSARTAN POTASSIUM 25 MG TABLET GT SCH (09:17)
[2023-05-27] MEDS: METOPROLOL TARTRATE 25 MG TABLET GT SCH ×2 (09:19→21:00)
[2023-05-27] MEDS: SODIUM CHLORIDE 1,000 MG TABLET GT SCH ×3 (09:19→17:29)
[2023-05-27] MEDS: CLOPIDOGREL 75 MG TABLET GT SCH (09:19)
[2023-05-27] MEDS: VITAL AF 1.2 1,000 ML LIQUID GT PRN (12:18)
[2023-05-27] MEDS: diphenhydrAMINE 25 MG/10 ML UDC GT PRN (16:03)
[2023-05-27] MEDS: NUTRISOURCE FIBER 4 GM PACKET GT SCH (21:08)
[2023-05-27] MEDS: ATORVASTATIN 20 MG TABLET GT SCH (21:08)
[2023-05-28] VITALS (10 sets, daily range): TEMP 97.2–97.4; O2SAT 98
[2023-05-28] MEDS: diphenhydrAMINE 25 MG/10 ML UDC GT PRN (00:03)
[2023-05-28] MEDS: ALBUTEROL SULFATE 2.5 MG/3 ML NEBU NEB SCH ×4 (00:55→19:11)
[2023-05-28] MEDS: BACLOFEN 10 MG TABLET GT SCH ×3 (05:36→21:45)
[2023-05-28] MEDS: OMEPRAZOLE 20 MG CAPSULE.DR GT SCH ×2 (05:36→17:15)
[2023-05-28] MEDS: METOPROLOL TARTRATE 25 MG TABLET GT SCH ×2 (09:17→20:28)
[2023-05-28] MEDS: LOSARTAN POTASSIUM 25 MG TABLET GT SCH (09:19)
[2023-05-28] MEDS: ACIDOPHILUS/BULGARICUS CHEW TAB GT SCH ×2 (09:20→20:27)
[2023-05-28] MEDS: NEOMY/BACITRA/POLYMYXIN B OINT UD PACKET TP SCH ×2 (09:22→20:27)
[2023-05-28] MEDS: SODIUM CHLORIDE 1,000 MG TABLET GT SCH ×3 (09:22→17:15)
[2023-05-28] MEDS: REMEDY ESSENTIAL ZINC PASTE 113 GM TP SCH ×2 (09:22→20:27)
[2023-05-28] MEDS: CLOPIDOGREL 75 MG TABLET GT SCH (09:22)
[2023-05-28] MEDS: VITAMINS A AND D 5 GM UD PKT TP SCH ×2 (09:23→20:27)
[2023-05-28] MEDS: HYDROGEN PEROXIDE 3% 118 ML BOTTLE TP SCH ×2 (09:33→19:11)
[2023-05-28] MEDS: VITAL AF 1.2 1,000 ML LIQUID GT PRN (14:37)
[2023-05-28] MEDS: ATORVASTATIN 20 MG TABLET GT SCH (20:27)
[2023-05-28] MEDS: MULTIVIT, IRON, MIN NO. 8, FA TABLET GT SCH (20:27)
[2023-05-28] MEDS: NUTRISOURCE FIBER 4 GM PACKET GT SCH (20:27)
[2023-05-28] MEDS: ACETAMINOPHEN 650 MG/20 ML UDC- SA PATIENTS-PAIN ONLY GT PRN (20:28)
[2023-05-29] VITALS (10 sets, daily range): TEMP 98–98.1; O2SAT 98
[2023-05-29] MEDS: ALBUTEROL SULFATE 2.5 MG/3 ML NEBU NEB SCH ×4 (01:00→19:38)
[2023-05-29] MEDS: diphenhydrAMINE 25 MG/10 ML UDC GT PRN (02:48)
[2023-05-29] MEDS: OMEPRAZOLE 20 MG CAPSULE.DR GT SCH ×2 (05:01→17:45)
[2023-05-29] MEDS: BACLOFEN 10 MG TABLET GT SCH ×3 (05:01→22:00)
[2023-05-29] MEDS: HYDROGEN PEROXIDE 3% 118 ML BOTTLE TP SCH ×2 (07:31→19:10)
[2023-05-29] MEDS: ACIDOPHILUS/BULGARICUS CHEW TAB GT SCH ×2 (09:53→20:36)
[2023-05-29] MEDS: CLOPIDOGREL 75 MG TABLET GT SCH (09:55)
[2023-05-29] MEDS: SODIUM CHLORIDE 1,000 MG TABLET GT SCH ×3 (09:55→17:44)
[2023-05-29] MEDS: METOPROLOL TARTRATE 25 MG TABLET GT SCH ×2 (09:55→20:36)
[2023-05-29] MEDS: LOSARTAN POTASSIUM 25 MG TABLET GT SCH (09:57)
[2023-05-29] MEDS: REMEDY ESSENTIAL ZINC PASTE 113 GM TP SCH ×2 (09:58→20:36)
[2023-05-29] MEDS: VITAMINS A AND D 5 GM UD PKT TP SCH ×2 (09:58→20:36)
[2023-05-29] MEDS: NEOMY/BACITRA/POLYMYXIN B OINT UD PACKET TP SCH ×2 (09:58→20:36)
[2023-05-29] MEDS: VITAL AF 1.2 1,000 ML LIQUID GT PRN (11:40)
[2023-05-29] MEDS: NUTRISOURCE FIBER 4 GM PACKET GT SCH (20:36)
[2023-05-29] MEDS: ATORVASTATIN 20 MG TABLET GT SCH (20:36)
[2023-05-30] VITALS (10 sets, daily range): TEMP 97.2–97.6; O2SAT 96–99
[2023-05-30] MEDS: ALBUTEROL SULFATE 2.5 MG/3 ML NEBU NEB SCH ×4 (00:40→19:03)
[2023-05-30] MEDS: diphenhydrAMINE 25 MG/10 ML UDC GT PRN (01:00)
[2023-05-30] MEDS: OMEPRAZOLE 20 MG CAPSULE.DR GT SCH ×2 (05:43→17:36)
[2023-05-30] MEDS: BACLOFEN 10 MG TABLET GT SCH ×3 (05:43→21:17)
[2023-05-30] MEDS: HYDROGEN PEROXIDE 3% 118 ML BOTTLE TP SCH ×2 (08:06→19:03)
[2023-05-30] MEDS: ACIDOPHILUS/BULGARICUS CHEW TAB GT SCH ×2 (08:22→21:17)
[2023-05-30] MEDS: NEOMY/BACITRA/POLYMYXIN B OINT UD PACKET TP SCH ×2 (08:23→21:17)
[2023-05-30] MEDS: REMEDY ESSENTIAL ZINC PASTE 113 GM TP SCH ×2 (08:23→21:17)
[2023-05-30] MEDS: VITAMINS A AND D 5 GM UD PKT TP SCH ×2 (08:23→21:17)
[2023-05-30] MEDS: LOSARTAN POTASSIUM 25 MG TABLET GT SCH (08:31)
[2023-05-30] MEDS: CLOPIDOGREL 75 MG TABLET GT SCH (08:33)
[2023-05-30] MEDS: SODIUM CHLORIDE 1,000 MG TABLET GT SCH ×3 (08:33→17:39)
[2023-05-30] MEDS: METOPROLOL TARTRATE 25 MG TABLET GT SCH ×2 (08:33→21:17)
[2023-05-30] MEDS: VITAL AF 1.2 1,000 ML LIQUID GT PRN (11:25)
[2023-05-30] MEDS: NUTRISOURCE FIBER 4 GM PACKET GT SCH (21:17)
[2023-05-30] MEDS: MULTIVIT, IRON, MIN NO. 8, FA TABLET GT SCH (21:17)
[2023-05-30] MEDS: ATORVASTATIN 20 MG TABLET GT SCH (21:17)
[2023-05-31] VITALS (10 sets, daily range): TEMP 98.3–98.5; O2SAT 98–99
[2023-05-31] MEDS: ALBUTEROL SULFATE 2.5 MG/3 ML NEBU NEB SCH ×4 (00:35→19:22)
[2023-05-31] MEDS: BACLOFEN 10 MG TABLET GT SCH ×3 (05:28→21:25)
[2023-05-31] MEDS: OMEPRAZOLE 20 MG CAPSULE.DR GT SCH ×2 (05:28→17:12)
[2023-05-31] MEDS: LOSARTAN POTASSIUM 25 MG TABLET GT SCH (09:00)
[2023-05-31] MEDS: METOPROLOL TARTRATE 25 MG TABLET GT SCH ×2 (09:00→21:30)
[2023-05-31] MEDS: HYDROGEN PEROXIDE 3% 118 ML BOTTLE TP SCH ×2 (09:00→19:22)
[2023-05-31] MEDS: ACIDOPHILUS/BULGARICUS CHEW TAB GT SCH ×2 (09:05→21:25)
[2023-05-31] MEDS: CLOPIDOGREL 75 MG TABLET GT SCH (09:08)
[2023-05-31] MEDS: SODIUM CHLORIDE 1,000 MG TABLET GT SCH ×3 (09:08→17:12)
[2023-05-31] MEDS: VITAMINS A AND D 5 GM UD PKT TP SCH ×2 (09:08→21:25)
[2023-05-31] MEDS: REMEDY ESSENTIAL ZINC PASTE 113 GM TP SCH ×2 (09:08→21:25)
[2023-05-31] MEDS: VITAL AF 1.2 1,000 ML LIQUID GT PRN (12:10)
[2023-05-31] MEDS: NUTRISOURCE FIBER 4 GM PACKET GT SCH (21:25)
[2023-05-31] MEDS: diphenhydrAMINE 25 MG/10 ML UDC GT PRN (21:25)
[2023-05-31] MEDS: ATORVASTATIN 20 MG TABLET GT SCH (21:29)
[2023-06-01] VITALS (9 sets, daily range): TEMP 97.3; O2SAT 97–99
[2023-06-01] MEDS: ALBUTEROL SULFATE 2.5 MG/3 ML NEBU NEB SCH ×4 (01:47→19:35)
[2023-06-01] MEDS: BACLOFEN 10 MG TABLET GT SCH ×3 (06:16→21:29)
[2023-06-01] MEDS: OMEPRAZOLE 20 MG CAPSULE.DR GT SCH ×2 (06:16→17:36)
[2023-06-01] MEDS: LOSARTAN POTASSIUM 25 MG TABLET GT SCH (09:00)
[2023-06-01] MEDS: VITAMINS A AND D 5 GM UD PKT TP SCH ×2 (09:00→21:29)
[2023-06-01] MEDS: SODIUM CHLORIDE 1,000 MG TABLET GT SCH ×3 (09:00→17:37)
[2023-06-01] MEDS: METOPROLOL TARTRATE 25 MG TABLET GT SCH ×2 (09:00→21:29)
[2023-06-01] MEDS: REMEDY ESSENTIAL ZINC PASTE 113 GM TP SCH ×2 (09:00→21:29)
[2023-06-01] MEDS: CLOPIDOGREL 75 MG TABLET GT SCH (09:00)
[2023-06-01] MEDS: HYDROGEN PEROXIDE 3% 118 ML BOTTLE TP SCH ×2 (09:00→19:11)
[2023-06-01] MEDS: ACIDOPHILUS/BULGARICUS CHEW TAB GT SCH ×2 (09:00→21:28)
[2023-06-01] MEDS: diphenhydrAMINE 25 MG/10 ML UDC GT PRN (12:52)
[2023-06-01] MEDS: MULTIVIT, IRON, MIN NO. 8, FA TABLET GT SCH (21:28)
[2023-06-01] MEDS: NUTRISOURCE FIBER 4 GM PACKET GT SCH (21:28)
[2023-06-01] MEDS: ATORVASTATIN 20 MG TABLET GT SCH (21:29)
[2023-06-02] VITALS (10 sets, daily range): TEMP 97.8; O2SAT 97–98
[2023-06-02] MEDS: ALBUTEROL SULFATE 2.5 MG/3 ML NEBU NEB SCH ×4 (01:05→19:37)
[2023-06-02] MEDS: BACLOFEN 10 MG TABLET GT SCH ×3 (05:44→21:46)
[2023-06-02] MEDS: VITAL AF 1.2 1,000 ML LIQUID GT PRN (05:44)
[2023-06-02] MEDS: OMEPRAZOLE 20 MG CAPSULE.DR GT SCH ×2 (05:44→17:03)
[2023-06-02] MEDS: HYDROGEN PEROXIDE 3% 118 ML BOTTLE TP SCH ×2 (07:50→19:37)
[2023-06-02] MEDS: REMEDY ESSENTIAL ZINC PASTE 113 GM TP SCH ×2 (08:44→21:45)
[2023-06-02] MEDS: METOPROLOL TARTRATE 25 MG TABLET GT SCH ×2 (08:44→21:45)
[2023-06-02] MEDS: SODIUM CHLORIDE 1,000 MG TABLET GT SCH ×3 (08:44→17:03)
[2023-06-02] MEDS: ACIDOPHILUS/BULGARICUS CHEW TAB GT SCH ×2 (08:44→21:45)
[2023-06-02] MEDS: CLOPIDOGREL 75 MG TABLET GT SCH (08:44)
[2023-06-02] MEDS: LOSARTAN POTASSIUM 25 MG TABLET GT SCH (08:44)
[2023-06-02] MEDS: VITAMINS A AND D 5 GM UD PKT TP SCH ×2 (08:44→21:45)
[2023-06-02] MEDS: NUTRISOURCE FIBER 4 GM PACKET GT SCH (21:45)
[2023-06-02] MEDS: ATORVASTATIN 20 MG TABLET GT SCH (21:45)
[2023-06-03] VITALS (10 sets, daily range): TEMP 97.6–97.8; O2SAT 97–99
[2023-06-03] MEDS: ALBUTEROL SULFATE 2.5 MG/3 ML NEBU NEB SCH ×4 (00:53→19:11)
[2023-06-03] MEDS: OMEPRAZOLE 20 MG CAPSULE.DR GT SCH ×2 (05:52→17:14)
[2023-06-03] MEDS: BACLOFEN 10 MG TABLET GT SCH ×3 (05:52→21:00)
[2023-06-03] MEDS: LOSARTAN POTASSIUM 25 MG TABLET GT SCH (09:05)
[2023-06-03] MEDS: METOPROLOL TARTRATE 25 MG TABLET GT SCH ×2 (09:06→21:04)
[2023-06-03] MEDS: SODIUM CHLORIDE 1,000 MG TABLET GT SCH ×3 (09:06→16:50)
[2023-06-03] MEDS: CLOPIDOGREL 75 MG TABLET GT SCH (09:06)
[2023-06-03] MEDS: ACIDOPHILUS/BULGARICUS CHEW TAB GT SCH ×2 (09:06→20:59)
[2023-06-03] MEDS: REMEDY ESSENTIAL ZINC PASTE 113 GM TP SCH ×2 (09:07→20:59)
[2023-06-03] MEDS: VITAMINS A AND D 5 GM UD PKT TP SCH ×2 (09:07→20:59)
[2023-06-03] MEDS: HYDROGEN PEROXIDE 3% 118 ML BOTTLE TP SCH ×2 (09:45→19:11)
[2023-06-03] MEDS: NUTRISOURCE FIBER 4 GM PACKET GT SCH (20:59)
[2023-06-03] MEDS: MULTIVIT, IRON, MIN NO. 8, FA TABLET GT SCH (20:59)
[2023-06-03] MEDS: ATORVASTATIN 20 MG TABLET GT SCH (21:03)
[2023-06-04] VITALS (11 sets, daily range): TEMP 97.5–97.7; O2SAT 98–99
[2023-06-04] MEDS: ALBUTEROL SULFATE 2.5 MG/3 ML NEBU NEB SCH ×4 (01:13→19:40)
[2023-06-04] MEDS: OMEPRAZOLE 20 MG CAPSULE.DR GT SCH ×2 (05:29→17:02)
[2023-06-04] MEDS: BACLOFEN 10 MG TABLET GT SCH ×3 (05:29→21:56)
[2023-06-04] MEDS: diphenhydrAMINE 25 MG/10 ML UDC GT PRN ×2 (07:02→22:01)
[2023-06-04] MEDS: HYDROGEN PEROXIDE 3% 118 ML BOTTLE TP SCH ×2 (07:29→21:41)
[2023-06-04] MEDS: METOPROLOL TARTRATE 25 MG TABLET GT SCH ×2 (09:00→21:55)
[2023-06-04] MEDS: LOSARTAN POTASSIUM 25 MG TABLET GT SCH (09:22)
[2023-06-04] MEDS: ACIDOPHILUS/BULGARICUS CHEW TAB GT SCH ×2 (09:22→21:53)
[2023-06-04] MEDS: REMEDY ESSENTIAL ZINC PASTE 113 GM TP SCH ×2 (09:24→21:55)
[2023-06-04] MEDS: VITAMINS A AND D 5 GM UD PKT TP SCH ×2 (09:24→21:55)
[2023-06-04] MEDS: CLOPIDOGREL 75 MG TABLET GT SCH (09:24)
[2023-06-04] MEDS: SODIUM CHLORIDE 1,000 MG TABLET GT SCH ×3 (09:24→17:02)
[2023-06-04] MEDS: ATORVASTATIN 20 MG TABLET GT SCH (21:53)
[2023-06-04] MEDS: NUTRISOURCE FIBER 4 GM PACKET GT SCH (21:55)
[2023-06-05] VITALS (10 sets, daily range): TEMP 97.1–97.2; O2SAT 97–99
[2023-06-05] MEDS: ALBUTEROL SULFATE 2.5 MG/3 ML NEBU NEB SCH ×4 (01:37→19:13)
[2023-06-05] MEDS: BACLOFEN 10 MG TABLET GT SCH ×3 (05:28→22:01)
[2023-06-05] MEDS: OMEPRAZOLE 20 MG CAPSULE.DR GT SCH ×2 (05:29→18:00)
[2023-06-05] MEDS: VITAL AF 1.2 1,000 ML LIQUID GT PRN (08:09)
[2023-06-05] MEDS: VITAMINS A AND D 5 GM UD PKT TP SCH ×2 (09:00→21:00)
[2023-06-05] MEDS: LOSARTAN POTASSIUM 25 MG TABLET GT SCH (09:00)
[2023-06-05] MEDS: ACIDOPHILUS/BULGARICUS CHEW TAB GT SCH ×2 (09:00→21:00)
[2023-06-05] MEDS: HYDROGEN PEROXIDE 3% 118 ML BOTTLE TP SCH ×2 (09:00→19:14)
[2023-06-05] MEDS: CLOPIDOGREL 75 MG TABLET GT SCH (09:00)
[2023-06-05] MEDS: METOPROLOL TARTRATE 25 MG TABLET GT SCH ×2 (09:00→21:00)
[2023-06-05] MEDS: SODIUM CHLORIDE 1,000 MG TABLET GT SCH ×3 (09:00→17:00)
[2023-06-05] MEDS: REMEDY ESSENTIAL ZINC PASTE 113 GM TP SCH ×2 (09:00→21:00)
[2023-06-05] MEDS: MULTIVIT, IRON, MIN NO. 8, FA TABLET GT SCH (21:00)
[2023-06-05] MEDS: NUTRISOURCE FIBER 4 GM PACKET GT SCH (21:00)
[2023-06-05] MEDS: ATORVASTATIN 20 MG TABLET GT SCH (21:00)
[2023-06-06] VITALS (10 sets, daily range): TEMP 97.2–98.6; O2SAT 97–99
[2023-06-06] MEDS: ALBUTEROL SULFATE 2.5 MG/3 ML NEBU NEB SCH ×4 (01:34→19:30)
[2023-06-06] MEDS: VITAL AF 1.2 1,000 ML LIQUID GT PRN (03:21)
[2023-06-06] MEDS: OMEPRAZOLE 20 MG CAPSULE.DR GT SCH ×2 (05:23→17:38)
[2023-06-06] MEDS: BACLOFEN 10 MG TABLET GT SCH ×3 (05:23→21:31)
[2023-06-06] MEDS: HYDROGEN PEROXIDE 3% 118 ML BOTTLE TP SCH ×2 (07:11→20:58)
[2023-06-06] MEDS: LOSARTAN POTASSIUM 25 MG TABLET GT SCH (09:38)
[2023-06-06] MEDS: ACIDOPHILUS/BULGARICUS CHEW TAB GT SCH ×2 (09:39→21:30)
[2023-06-06] MEDS: VITAMINS A AND D 5 GM UD PKT TP SCH ×2 (09:43→21:31)
[2023-06-06] MEDS: CLOPIDOGREL 75 MG TABLET GT SCH (09:43)
[2023-06-06] MEDS: REMEDY ESSENTIAL ZINC PASTE 113 GM TP SCH ×2 (09:43→21:31)
[2023-06-06] MEDS: METOPROLOL TARTRATE 25 MG TABLET GT SCH ×2 (09:44→21:30)
[2023-06-06] MEDS: SODIUM CHLORIDE 1,000 MG TABLET GT SCH ×3 (09:46→17:37)
[2023-06-06] MEDS: diphenhydrAMINE 25 MG/10 ML UDC GT PRN (17:39)
[2023-06-06] MEDS: ATORVASTATIN 20 MG TABLET GT SCH (21:30)
[2023-06-06] MEDS: NUTRISOURCE FIBER 4 GM PACKET GT SCH (21:30)
[2023-06-07] VITALS (9 sets, daily range): TEMP 98–98.2; O2SAT 97–99
[2023-06-07] MEDS: diphenhydrAMINE 25 MG/10 ML UDC GT PRN (00:51)
[2023-06-07] MEDS: VITAL AF 1.2 1,000 ML LIQUID GT PRN (02:10)
[2023-06-07] MEDS: ALBUTEROL SULFATE 2.5 MG/3 ML NEBU NEB SCH ×4 (02:23→19:37)
[2023-06-07] MEDS: OMEPRAZOLE 20 MG CAPSULE.DR GT SCH ×2 (05:39→17:06)
[2023-06-07] MEDS: BACLOFEN 10 MG TABLET GT SCH ×3 (05:39→22:06)
[2023-06-07] MEDS: HYDROGEN PEROXIDE 3% 118 ML BOTTLE TP SCH ×2 (07:37→19:18)
[2023-06-07] MEDS: ACIDOPHILUS/BULGARICUS CHEW TAB GT SCH ×2 (09:14→21:00)
[2023-06-07] MEDS: LOSARTAN POTASSIUM 25 MG TABLET GT SCH (09:14)
[2023-06-07] MEDS: METOPROLOL TARTRATE 25 MG TABLET GT SCH ×2 (09:15→21:00)
[2023-06-07] MEDS: SODIUM CHLORIDE 1,000 MG TABLET GT SCH ×3 (09:17→17:05)
[2023-06-07] MEDS: VITAMINS A AND D 5 GM UD PKT TP SCH ×2 (09:18→21:00)
[2023-06-07] MEDS: CLOPIDOGREL 75 MG TABLET GT SCH (09:18)
[2023-06-07] MEDS: REMEDY ESSENTIAL ZINC PASTE 113 GM TP SCH ×2 (09:18→21:00)
[2023-06-07] MEDS: MULTIVIT, IRON, MIN NO. 8, FA TABLET GT SCH (21:00)
[2023-06-07] MEDS: ATORVASTATIN 20 MG TABLET GT SCH (21:00)
[2023-06-07] MEDS: NUTRISOURCE FIBER 4 GM PACKET GT SCH (21:00)
[2023-06-08] VITALS (10 sets, daily range): TEMP 97.7–97.9; O2SAT 97–99
[2023-06-08] MEDS: ALBUTEROL SULFATE 2.5 MG/3 ML NEBU NEB SCH ×4 (01:05→19:26)
[2023-06-08] MEDS: BACLOFEN 10 MG TABLET GT SCH ×3 (05:55→21:10)
[2023-06-08] MEDS: OMEPRAZOLE 20 MG CAPSULE.DR GT SCH ×2 (05:55→17:15)
[2023-06-08] MEDS: VITAL AF 1.2 1,000 ML LIQUID GT PRN (05:57)
[2023-06-08] MEDS: HYDROGEN PEROXIDE 3% 118 ML BOTTLE TP SCH ×2 (07:28→19:05)
[2023-06-08] MEDS: ACIDOPHILUS/BULGARICUS CHEW TAB GT SCH ×2 (09:53→21:08)
[2023-06-08] MEDS: METOPROLOL TARTRATE 25 MG TABLET GT SCH ×2 (09:53→21:00)
[2023-06-08] MEDS: LOSARTAN POTASSIUM 25 MG TABLET GT SCH (09:53)
[2023-06-08] MEDS: SODIUM CHLORIDE 1,000 MG TABLET GT SCH ×3 (09:54→17:15)
[2023-06-08] MEDS: CLOPIDOGREL 75 MG TABLET GT SCH (09:54)
[2023-06-08] MEDS: VITAMINS A AND D 5 GM UD PKT TP SCH ×2 (09:55→21:09)
[2023-06-08] MEDS: REMEDY ESSENTIAL ZINC PASTE 113 GM TP SCH ×2 (09:55→21:09)
[2023-06-08] MEDS: ATORVASTATIN 20 MG TABLET GT SCH (21:08)
[2023-06-08] MEDS: NUTRISOURCE FIBER 4 GM PACKET GT SCH (21:09)
[2023-06-08] MEDS: diphenhydrAMINE 25 MG/10 ML UDC GT PRN (21:13)
[2023-06-09] VITALS (10 sets, daily range): TEMP 97.5–98.3; O2SAT 98–99
[2023-06-09] MEDS: ALBUTEROL SULFATE 2.5 MG/3 ML NEBU NEB SCH ×4 (01:04→19:40)
[2023-06-09] MEDS: BACLOFEN 10 MG TABLET GT SCH ×3 (05:10→22:12)
[2023-06-09] MEDS: OMEPRAZOLE 20 MG CAPSULE.DR GT SCH ×2 (05:12→17:04)
[2023-06-09] MEDS: VITAL AF 1.2 1,000 ML LIQUID GT PRN (05:13)
[2023-06-09] MEDS: HYDROGEN PEROXIDE 3% 118 ML BOTTLE TP SCH ×2 (08:08→21:05)
[2023-06-09] MEDS: ACIDOPHILUS/BULGARICUS CHEW TAB GT SCH ×2 (09:21→21:00)
[2023-06-09] MEDS: LOSARTAN POTASSIUM 25 MG TABLET GT SCH (09:21)
[2023-06-09] MEDS: METOPROLOL TARTRATE 25 MG TABLET GT SCH ×2 (09:21→21:00)
[2023-06-09] MEDS: SODIUM CHLORIDE 1,000 MG TABLET GT SCH ×3 (09:21→16:48)
[2023-06-09] MEDS: REMEDY ESSENTIAL ZINC PASTE 113 GM TP SCH ×2 (09:22→21:00)
[2023-06-09] MEDS: VITAMINS A AND D 5 GM UD PKT TP SCH ×2 (09:22→21:00)
[2023-06-09] MEDS: CLOPIDOGREL 75 MG TABLET GT SCH (09:22)
[2023-06-09] MEDS: ATORVASTATIN 20 MG TABLET GT SCH (21:00)
[2023-06-09] MEDS: MULTIVIT, IRON, MIN NO. 8, FA TABLET GT SCH (21:00)
[2023-06-09] MEDS: NUTRISOURCE FIBER 4 GM PACKET GT SCH (21:00)
[2023-06-09] MEDS: diphenhydrAMINE 25 MG/10 ML UDC GT PRN (22:00)
[2023-06-10] VITALS (9 sets, daily range): BP systolic 158; BP diastolic 80; TEMP 98–98.3; O2SAT 97–99
[2023-06-10] MEDS: ALBUTEROL SULFATE 2.5 MG/3 ML NEBU NEB SCH ×4 (01:52→19:57)
[2023-06-10] MEDS: BACLOFEN 10 MG TABLET GT SCH ×3 (05:32→21:01)
[2023-06-10] MEDS: OMEPRAZOLE 20 MG CAPSULE.DR GT SCH ×2 (05:32→17:06)
[2023-06-10] MEDS: VITAL AF 1.2 1,000 ML LIQUID GT PRN (05:34)
[2023-06-10] MEDS: HYDROGEN PEROXIDE 3% 118 ML BOTTLE TP SCH ×2 (07:19→19:10)
[2023-06-10] MEDS: LOSARTAN POTASSIUM 25 MG TABLET GT SCH (08:46)
[2023-06-10] MEDS: ACIDOPHILUS/BULGARICUS CHEW TAB GT SCH ×2 (08:46→20:50)
[2023-06-10] MEDS: CLOPIDOGREL 75 MG TABLET GT SCH (08:46)
[2023-06-10] MEDS: REMEDY ESSENTIAL ZINC PASTE 113 GM TP SCH ×2 (08:46→21:01)
[2023-06-10] MEDS: METOPROLOL TARTRATE 25 MG TABLET GT SCH ×2 (08:46→21:00)
[2023-06-10] MEDS: VITAMINS A AND D 5 GM UD PKT TP SCH ×2 (08:46→21:01)
[2023-06-10] MEDS: SODIUM CHLORIDE 1,000 MG TABLET GT SCH ×3 (08:46→17:06)
[2023-06-10] MEDS: ATORVASTATIN 20 MG TABLET GT SCH (21:00)
[2023-06-10] MEDS: NUTRISOURCE FIBER 4 GM PACKET GT SCH (21:00)
[2023-06-11] VITALS (9 sets, daily range): TEMP 97.8; O2SAT 98–99
[2023-06-11] MEDS: ALBUTEROL SULFATE 2.5 MG/3 ML NEBU NEB SCH ×4 (01:07→19:43)
[2023-06-11] MEDS: VITAL AF 1.2 1,000 ML LIQUID GT PRN (03:52)
[2023-06-11] MEDS: BACLOFEN 10 MG TABLET GT SCH ×3 (05:43→22:00)
[2023-06-11] MEDS: OMEPRAZOLE 20 MG CAPSULE.DR GT SCH ×2 (05:44→17:12)
[2023-06-11] MEDS: HYDROGEN PEROXIDE 3% 118 ML BOTTLE TP SCH ×2 (08:25→19:14)
[2023-06-11] MEDS: LOSARTAN POTASSIUM 25 MG TABLET GT SCH (08:54)
[2023-06-11] MEDS: ACIDOPHILUS/BULGARICUS CHEW TAB GT SCH ×2 (08:54→20:36)
[2023-06-11] MEDS: SODIUM CHLORIDE 1,000 MG TABLET GT SCH ×3 (08:56→17:12)
[2023-06-11] MEDS: METOPROLOL TARTRATE 25 MG TABLET GT SCH ×2 (08:56→20:39)
[2023-06-11] MEDS: VITAMINS A AND D 5 GM UD PKT TP SCH ×2 (08:57→20:36)
[2023-06-11] MEDS: CLOPIDOGREL 75 MG TABLET GT SCH (08:57)
[2023-06-11] MEDS: REMEDY ESSENTIAL ZINC PASTE 113 GM TP SCH ×2 (08:57→20:36)
[2023-06-11] MEDS: NUTRISOURCE FIBER 4 GM PACKET GT SCH (20:35)
[2023-06-11] MEDS: MULTIVIT, IRON, MIN NO. 8, FA TABLET GT SCH (20:35)
[2023-06-11] MEDS: ATORVASTATIN 20 MG TABLET GT SCH (20:38)
[2023-06-12] VITALS (10 sets, daily range): TEMP 97.9–98.7; O2SAT 98–99
[2023-06-12] MEDS: ALBUTEROL SULFATE 2.5 MG/3 ML NEBU NEB SCH ×4 (01:08→19:44)
[2023-06-12] MEDS: VITAL AF 1.2 1,000 ML LIQUID GT PRN (04:39)
[2023-06-12] MEDS: BACLOFEN 10 MG TABLET GT SCH ×3 (05:18→22:40)
[2023-06-12] MEDS: OMEPRAZOLE 20 MG CAPSULE.DR GT SCH ×2 (05:18→17:03)
[2023-06-12] MEDS: HYDROGEN PEROXIDE 3% 118 ML BOTTLE TP SCH ×2 (07:12→19:11)
[2023-06-12] MEDS: ACIDOPHILUS/BULGARICUS CHEW TAB GT SCH ×2 (09:29→21:00)
[2023-06-12] MEDS: LOSARTAN POTASSIUM 25 MG TABLET GT SCH (09:29)
[2023-06-12] MEDS: SODIUM CHLORIDE 1,000 MG TABLET GT SCH ×3 (09:29→17:03)
[2023-06-12] MEDS: METOPROLOL TARTRATE 25 MG TABLET GT SCH ×2 (09:29→21:00)
[2023-06-12] MEDS: CLOPIDOGREL 75 MG TABLET GT SCH (09:30)
[2023-06-12] MEDS: REMEDY ESSENTIAL ZINC PASTE 113 GM TP SCH ×2 (09:30→21:00)
[2023-06-12] MEDS: VITAMINS A AND D 5 GM UD PKT TP SCH ×2 (09:30→21:00)
[2023-06-12] MEDS: ATORVASTATIN 20 MG TABLET GT SCH (21:00)
[2023-06-12] MEDS: NUTRISOURCE FIBER 4 GM PACKET GT SCH (21:00)
[2023-06-13] VITALS (10 sets, daily range): BP systolic 153; BP diastolic 73; TEMP 97.2; O2SAT 97–99
[2023-06-13] MEDS: ALBUTEROL SULFATE 2.5 MG/3 ML NEBU NEB SCH ×4 (00:56→19:30)
[2023-06-13] MEDS: VITAL AF 1.2 1,000 ML LIQUID GT PRN (02:08)
[2023-06-13] MEDS: BACLOFEN 10 MG TABLET GT SCH ×3 (06:24→22:10)
[2023-06-13] MEDS: OMEPRAZOLE 20 MG CAPSULE.DR GT SCH ×2 (06:24→17:09)
[2023-06-13] MEDS: HYDROGEN PEROXIDE 3% 118 ML BOTTLE TP SCH ×2 (07:31→21:00)
[2023-06-13] MEDS: METOPROLOL TARTRATE 25 MG TABLET GT SCH ×2 (09:32→21:00)
[2023-06-13] MEDS: ACIDOPHILUS/BULGARICUS CHEW TAB GT SCH ×2 (09:32→21:00)
[2023-06-13] MEDS: LOSARTAN POTASSIUM 25 MG TABLET GT SCH (09:32)
[2023-06-13] MEDS: REMEDY ESSENTIAL ZINC PASTE 113 GM TP SCH ×2 (09:33→21:00)
[2023-06-13] MEDS: CLOPIDOGREL 75 MG TABLET GT SCH (09:33)
[2023-06-13] MEDS: VITAMINS A AND D 5 GM UD PKT TP SCH ×2 (09:33→21:00)
[2023-06-13] MEDS: SODIUM CHLORIDE 1,000 MG TABLET GT SCH ×3 (09:33→17:09)
[2023-06-13] MEDS: ATORVASTATIN 20 MG TABLET GT SCH (21:00)
[2023-06-13] MEDS: MULTIVIT, IRON, MIN NO. 8, FA TABLET GT SCH (21:00)
[2023-06-13] MEDS: NUTRISOURCE FIBER 4 GM PACKET GT SCH (21:00)
[2023-06-14] MEDS: VITAL AF 1.2 1,000 ML LIQUID GT PRN (01:00)
[2023-06-14] MEDS: ALBUTEROL SULFATE 2.5 MG/3 ML NEBU NEB SCH (01:24)
[2023-06-14 01:28] VITALS: O2SAT 97
[2023-06-14 01:38] VITALS: O2SAT 99
[2023-06-14] MEDS: BACLOFEN 10 MG TABLET GT SCH (05:39)
[2023-06-14] MEDS: OMEPRAZOLE 20 MG CAPSULE.DR GT SCH (05:39)
== END 2023-06-12 23:59 | disposition still patient (30) | DRG 189 ==
LOC: SA → UNDOADMIN 06-15 07:12 → SA 06-15 07:12 → SA1 01-06 22:06 → SA 01-09 19:44
PROVIDERS: ADMIT Internal Medicine Nephrology; ATTEND Internal Medicine Nephrology
DX: J96.21 Acute and chronic respiratory failure with hypoxia (principal); G93.49 Other encephalopathy; N39.0 Urinary tract infection, site not specified; E87.1 Hypo-osmolality and hyponatremia; G93.40 Encephalopathy, unspecified; Z43.1 Encounter for attention to gastrostomy; B96.1 Klebsiella pneumoniae [K. pneumoniae] as the cause of diseases classified elsewhere; D64.9 Anemia, unspecified; E88.09 Other disorders of plasma-protein metabolism, not elsewhere classified; G93.89 Other specified disorders of brain; I10 Essential (primary) hypertension; I25.10 Atherosclerotic heart disease of native coronary artery without angina pectoris; I25.2 Old myocardial infarction; L29.9 Pruritus, unspecified; L72.3 Sebaceous cyst; L89.159 Pressure ulcer of sacral region, unspecified stage; R13.10 Dysphagia, unspecified; S10.93XA Contusion of unspecified part of neck, initial encounter; S60.221A Contusion of right hand, initial encounter; S90.423A Blister (nonthermal), unspecified great toe, initial encounter; X58.XXXA Exposure to other specified factors, initial encounter; Y93.9 Activity, unspecified; Y92.230 Patient room in hospital as the place of occurrence of the external cause; Z93.0 Tracheostomy status; I69.198 Other sequelae of nontraumatic intracerebral hemorrhage; Z79.82 Long term (current) use of aspirin; Z79.899 Other long term (current) drug therapy
CPT/HCPCS: 36415; 71045; 74018; 83735; 84100; 85025; 85730; 86580; 90686; 94640; 97161; A4663; A6209; A6213; C1758; Q0163; Q9963; U0003

== ENCOUNTER 2024-03-11 05:29 | Emergency (ER) | payer BC, MEDICARE ==
[~2024-03-11] VITALS: Ht 165.1 cm; Wt 60.8 kg
[2024-03-11 05:45] VITALS: O2SAT 96
[2024-03-11] MEDS ORDERED: DIPH-530 GT (05:56)
[2024-03-11] MEDS ORDERED: NUT.237L65 GT (05:56)
[2024-03-11] MEDS ORDERED: CLOP75TA33 GT (05:56)
[2024-03-11] MEDS ORDERED: MULT-1045 GT (05:56)
[2024-03-11] MEDS ORDERED: BACL10TA GT (05:56)
[2024-03-11] MEDS ORDERED: LOSA25TA27 GT (05:56)
[2024-03-11] MEDS ORDERED: MINE3.5O5 EACHEYE (05:56)
[2024-03-11] MEDS ORDERED: VITA113O5 TP (05:56)
[2024-03-11] MEDS ORDERED: ACID1TAB12 PO (05:56)
[2024-03-11] MEDS ORDERED: SODI100010 GT (05:56)
[2024-03-11] MEDS ORDERED: OMEP20CA15 GT (05:56)
[2024-03-11] MEDS ORDERED: ALBU2.5V38 NEB (05:56)
[2024-03-11] MEDS ORDERED: HYDR237S13 TP (05:56)
[2024-03-11] MEDS ORDERED: GUAR1PAC4 GT (05:56)
[2024-03-11] MEDS ORDERED: METO25TA6 GT (05:56)
[2024-03-11] MEDS ORDERED: ATOR10TA GT (05:56)
[2024-03-11] MEDS ORDERED: ACET-2070 GT (05:56)
[2024-03-11] MEDS: levETIRAcetam IV 1,000 MG in IV DEXTROSE 5% 100 ML IV STA (06:04)
[2024-03-11 06:11] LABS: ABG BASE EXCESS -3.2 mmol/L (-2.0-3.0); ABG HCO3 22.3 mmol/L (21.0-28.0); ABG PCO2 41.5 mmHg (35.0-48.0); ABG PH 7.348 (7.350-7.450); ABG PO2 86.8 mmHg (83.0-108.0); ABG SITE LEFT RADIAL; ABG TOTAL HEMOGLOBIN 14.8 G/dL (13.5-17.5); AaDO2 96.2 mmHg; COHb 0.4 % (0.5-1.5); MetHb 0.5 % (0.0-1.5); O2Hb 95.3 % (94.0-98.0)
[2024-03-11 07:13] LABS: BASOPHILS % (AUTO) 0.2 % (0.0-2.0); EOSINOPHILS # (AUTO) 0.1 K/uL (0.0-0.7); EOSINOPHILS % (AUTO) 1.2 % (0.0-7.0); HEMATOCRIT 42.5 % (36.7-47.1); HEMOGLOBIN 14.6 g/dL (12.5-16.3); LYMPHOCYTES # (AUTO) 0.9 K/uL (0.8-4.8); LYMPHOCYTES % (AUTO) 11.2 % (20.5-51.5); MEAN CORPUSCULAR HEMOGLOBIN 32.2 uug (23.8-33.4); MEAN CORPUSCULAR HGB CONC 34 g/dL (32.5-36.3); MEAN CORPUSCULAR VOLUME 93.7 fL (73.0-96.2); MONOCYTES # (AUTO) 0.4 K/uL (0.1-1.30); MONOCYTES % (AUTO) 4.9 % (0.0-11.0); NEUTROPHILS # (AUTO) 6.5 K/uL (1.8-8.9); NEUTROPHILS % (AUTO) 82.5 % (38.5-71.5); PLATELET COUNT (AUTO) 187 K/uL (152-348); RED BLOOD CELL COUNT(AUTO) 4.53 MIL/uL (4.06-5.63); RED CELL DISTRIBUTION WIDTH 13.6 % (12.1-16.2); WHITE BLOOD COUNT (AUTO) 7.8 K/uL (3.6-10.2)
[2024-03-11 07:15] LABS: DIFFERENTIAL COMMENT 1
[2024-03-11 07:19] LABS: *BILIRUBIN,URIN NEGATIVE (NEGATIVE); *BLOOD, URINE 1+ (NEGATIVE); *CLARITY,URINE CLEAR (CLEAR); *COLOR,URINE YELLOW (YELLOW); *KETONES,URINE NEGATIVE (NEGATIVE); *PROTEIN,URINE 2+ (NEGATIVE); *UROBILINOGEN,URINE 0.2 E.U./dl (NORMAL); LEUKOCYTE ESTERASE ,URINE 1+ (NEGATIVE); NITRITE, URINE POSITIVE (NEGATIVE); UGLUCOSE NEGATIVE (NEGATIVE)
[2024-03-11 07:25] VITALS: O2SAT 97
[2024-03-11 07:28] LABS: CALCIUM 8.3 mg/dL (8.5-10.1); CARBON DIOXIDE 25 mmol/L (21-32); CHLORIDE 103 mmol/L (98-107); CREATININE 0.9 mg/dL (0.6-1.3); GLUCOSE 125 mg/dL (74-106); POTASSIUM 4.1 mmol/L (3.5-5.1); SODIUM SERUM 139 mmol/L (136-145); UREA NITROGEN, BLOOD 27 mg/dL (7-18)
[2024-03-11 07:29] LABS: BACTERIA,URINE MODERATE /HPF (NONE SEEN); MUCUS,URINE FEW /LPF (0-FEW); WBC,URINE 20-50 /HPF (0-3)
[2024-03-11 07:33] LABS: ALANINE AMINOTRANSFERASE 33 U/L (16-63); ALBUMIN 3.5 g/dL (3.4-5.0); ALKALINE PHOSPHATASE 78 U/L (50-136); ASPARTATE AMINOTRANSFERASE 8 U/L (15-37); BILIRUBIN,TOTAL 0.5 mg/dL (0.2-1.0); MAGNESIUM 2.2 mg/dL (1.8-2.4); TOTAL PROTEIN, SERUM 7.4 g/dL (6.4-8.2)
[2024-03-11] MEDS ORDERED: CEFTRIAXONE /D5W 50ML IVPB **ER PYXIS IV ONE (08:23)
[2024-03-11] MEDS: CEFTRIAXONE 1 G in IV DEXTROSE 5% 50 ML IV ONE (08:25)
[2024-03-11] MEDS: IV NS 1000 ML 1,000 ML IV ONE (08:27)
[2024-03-11] MEDS ORDERED: CHOLECALCIFEROL 1,000 UNIT TABLET ONE (08:37)
[2024-03-11] MEDS: CHOLECALCIFEROL 1,000 UNIT TABLET GT SCH (08:41)
[2024-03-11] MEDS: CHOLECALCIFEROL 1,000 UNIT TABLET GT ONE (08:58)
[2024-03-11 13:07] VITALS: BP 154/78; TEMP 97.8; O2SAT 98
== END 2024-03-11 10:15 ==
LOC: ER 05:32
DX: R56.9 Unspecified convulsions (principal); N39.0 Urinary tract infection, site not specified; E83.51 Hypocalcemia; Z93.0 Tracheostomy status; E78.5 Hyperlipidemia, unspecified; D64.9 Anemia, unspecified; F41.9 Anxiety disorder, unspecified; Z79.02 Long term (current) use of antithrombotics/antiplatelets; Z20.822 Contact with and (suspected) exposure to COVID-19; Z79.899 Other long term (current) drug therapy; Z91.013 Allergy to seafood
CPT/HCPCS: 99082; 80053; 81001; 83735; 85025; 87426; 36415; 71045; 82803; 93005; 99285; 96361; 96365; 96375; 36600 ×2; J0696; J1953; J7040; A4606; A4663; C1758